=== PATIENT | male | born 1990 | race Caucasian/White ===

== ENCOUNTER 2021-07-05 17:59 | Emergency (ER) | payer OTHER, SELFPAY ==
[2021-07-05 18:10] VITALS: BP 129/77; PULSE 112; RESP 16; TEMP 37.4; O2SAT 99
--- NOTE | 2021-07-05 18:16 | ED.SKABFB ---
HPI - Skin/Abscess/Foreign Bdy General Chief complaint: Skin/Abscess/Foreign Body Stated complaint: rash Time Seen by Provider: 07/05/21 18:46 Source: patient and RN notes reviewed Mode of arrival: ambulatory Limitations: no limitations History of Present Illness HPI narrative: 31 male presents concern for painful rash on his hands and feet, reports rash on the palms of hands and feet. Reports general body aches, chills, malaise. He denies oral lesions. Reports he has kids, however they are not sick. He denies cough, shortness of breath, rhinorrhea, nasal congestion complaint: rash Related Data Allergies Allergy/AdvReac Type Severity Reaction Status Date / Time No Known Allergies Allergy Verified 07/05/21 18:27 Review of Systems Review of Systems: CONSTITUTIONAL: Reports malaise, chills. Denies sweats, or fever. EYES: Denies visual changes, redness, or discharge. ENT: Denies rhinorrhea, congestion, sinus pain, otalgia or sore throat. CARDIOVASCULAR: Denies chest pain, palpitations, or edema. RESPIRATORY: Denies cough or dyspnea. GASTROINTESTINAL: Denies abdominal pain, nausea, vomiting SKIN: Reports painful rash on the soles of the feet and the palms of MUSCULOSKELETAL: No reported myalgia. NEUROLOGIC: Denies headache. All systems reviewed & are unremarkable except as noted in HPI and below PMFSH Comments At time of signature, agree with nursing past medical, surgical, social and family history. There is no relevant family history pertinent to the presenting complaint Exam Narrative: GENERAL: Well-appearing, well-nourished, and in no acute distress. HEAD: Normocephalic, atraumatic. EYES: PERRLA, conjunctivae clear, and EOMI. ENT: Mucous membranes moist. Oropharynx without edema, erythema or lesions. NECK: Supple. No lymphadenopathy CHEST: Clear to auscultation. No respiratory distress. HEART: Regular rate and rhythm. SKIN: Warm, dry. Scattered skin colored papules noted to the palms of the hands and soles of feet. NEURO: Alert and oriented x3. PSYCH: Normal mood and affect Course Course Emergency Course: Patient is aware of diagnosis, understands and agrees to treatment plan. Anticipatory guidance given. Patient agrees to follow-up as directed and is aware of reasons to seek care at the emergency department. Portions of this record may have been created with voice recognition software Vital Signs Vital signs: Vital Signs Temperature 99.3 F 07/05/21 18:10 Pulse Rate 112 H 07/05/21 18:10 Respiratory Rate 16 07/05/21 18:10 Blood Pressure 129/77 07/05/21 18:10 Pulse Oximetry 99 07/05/21 18:10 Temperature 99.3 F 07/05/21 18:10 Pulse Rate 112 H 07/05/21 18:10 Respiratory Rate 16 07/05/21 18:10 Blood Pressure 129/77 07/05/21 18:10 Pulse Oximetry 99 07/05/21 18:10 Reviewed. MDM - Skin/Abscess/Foreign Bdy MDM Narrative Medical decision making narrative: Does not appear at this time to be erythema multiforme, bullous, SJS, TEN; no evidence at this time to suggest RMSF, endocarditis or Lyme disease; patient looks well, nontoxic and is tolerating oral intake; no neurologic signs or symptoms; no headache, photophobia or neck pain; afebrile; appropriate for initial outpatient treatment; discussed the importance of follow-up, patient agrees; question, viral exanthema, contact dermatitis, allergic dermatitis, eczema, urticaria. No soft palate or uvula edema, no tongue, lip edema or other mucosal involvement, no respiratory compromise, no stridor, no wheezing, no wheezing, no history of syncope, no hypotension, no nausea, vomiting, or diarrhea. Instructed patient to go to nearest ER immediately for any worsening symptoms including but not limited to: fever, spreading rash, pain, sore throat, headache, dizziness, chest pain, trouble breathing, or any symptoms concerning to the patient. Critical Care Time Critical Care Time Critical Care Time: No Discharge Plan Discharge Clinical Impress
== END 2021-07-05 19:00 | disposition home or self-care (01) ==
PROVIDERS: Emergency Provider Nurse Practitioner
DX: R21 Rash and other nonspecific skin eruption (principal); B97.11 Coxsackievirus as the cause of diseases classified elsewhere
CPT/HCPCS: 99213; G0463

== ENCOUNTER 2024-03-09 20:23 | Emergency (ER) | payer BC, SELFPAY ==
[2024-03-09 20:32] VITALS: BP 139/87; PULSE 64; RESP 15; TEMP 36.6; O2SAT 100
--- NOTE | 2024-03-09 22:26 | PC.NURSE ---
Pt refusing IV, blood work, and IV medications. Pt is only want a prescription refilled. COLIN Brizuela notified.
--- NOTE | 2024-03-09 22:30 | ED.ABDPAIN ---
HPI - Abdominal Pain General Chief Complaint: Abdominal Pain Stated Complaint: heartburn Time Seen by Provider: 03/09/24 22:17 Source: patient Mode of arrival: ambulatory Limitations: no limitations History of Present Illness HPI narrative: This is a 33-year-old male that presents to the emergency department for medication refill. Reports he has recently moved and does not have his prescription for his reflux medications. He has been experiencing heartburn in the last couple of days due to this. Denies fevers or vomiting. Related Data Allergies Allergy/AdvReac Type Severity Reaction Status Date / Time No Known Allergies Allergy Verified 03/09/24 20:24 Review of Systems Review of Systems: CONSTITUTIONAL: Denies fever GASTROINTESTINAL: Reports nausea. Denies abdominal pain, vomiting, or diarrhea. All systems reviewed & are unremarkable except as noted in HPI and below PMFSH Past Medical History Medical History (Updated 03/09/24 @ 22:35 by Sheryl Brizuela PA-C) History of gastroesophageal reflux (GERD) Social History Social History (Updated 03/09/24 @ 22:35 by Sheryl Brizuela PA-C) Substance use: never Exam Narrative: GENERAL: Well-appearing, well-nourished, and in no acute distress. HEAD: Normocephalic, atraumatic. EYES: EOMI. CHEST: Clear to auscultation. No respiratory distress. No wheezes rales or rhonchi HEART: Regular rate and rhythm. No murmur heard. Normal peripheral pulses. ABDOMEN: Soft, nontender, nondistended, normal active bowel sounds. EXTREMITIES: Normal range of motion. No edema. SKIN: Warm, dry, no rash. NEURO: No focal deficits. Alert and oriented x3. PSYCH: Normal mood and affect Course Vital Signs Vital signs: Vital Signs Temperature 98 F 03/09/24 20:32 Pulse Rate 64 03/09/24 20:32 Respiratory Rate 15 03/09/24 20:32 Blood Pressure 139/87 03/09/24 20:32 Pulse Oximetry 100 03/09/24 20:32 Oxygen Delivery Room Air 03/09/24 20:32 Temperature 98 F 03/09/24 20:32 Pulse Rate 64 03/09/24 20:32 Respiratory Rate 15 03/09/24 20:32 Blood Pressure 139/87 03/09/24 20:32 Pulse Oximetry 100 03/09/24 20:32 Oxygen Delivery Room Air 03/09/24 20:32 MDM - Abdominal Pain MDM Narrative Medical decision making narrative: Patient presents to the emergency department for medication refill. Reports he has recently moved. He needs prescriptions for his reflux medications. He does not have any other complaints currently. Will send prescriptions and he will have further follow-up with his GI doctor. He was given warnings to return to the ER Differential Diagnosis Differential diagnosis: Likely other (GERD, esophagitis, gastritis) Critical Care Time Critical Care Time Critical Care Time: No Discharge Plan Discharge Clinical Impression: Chronic GERD Patient Disposition: Home, Self-Care Condition: Stable Instructions: GERD (Gastroesophageal Reflux Disease) (ED), Abdominal Pain (ED) Additional Instructions: Return to the ER if you experience fever, abdominal pain with nausea and vomiting, you are unable to keep down liquids or solids, or any other symptoms that are concerning to you Take your medications as prescribed Follow up with your tip puncher Prescriptions: New famotidine 20 mg tablet 20 mg PO BID 30 Days Qty: 60 0RF omeprazole 40 mg capsule,delayed release(DR/EC) 40 mg PO DAILY 30 Days Qty: 30 0RF No Action prednisone 20 mg tablet 40 mg PO DAILY 5 Days Qty: 10 0RF triamcinolone acetonide 0.1 % cream 1 applic TOPICAL BID 7 Days Qty: 80 0RF Follow-up/Referrals: UNKNOWN,DOCTOR [Primary Care Provider] -
[2024-03-09 22:42] VITALS: BP 136/76; PULSE 68; RESP 16; O2SAT 98
== END 2024-03-09 22:44 | disposition home or self-care (01) ==
PROVIDERS: Emergency Provider Physician Assistant
DX: K21.9 Gastro-esophageal reflux disease without esophagitis (principal)
CPT/HCPCS: 99283

== ENCOUNTER 2024-07-19 20:18 | Emergency (ER) | payer BC, SELFPAY ==
--- NOTE | ~2024-07-19 | XR_ITS ---
Portable chest x-ray Comparison: None Clinical History: Pain Findings: Lungs are clear, without focal consolidation or pleural effusion. Cardiomediastinal silho uette is unremarkable. Bones and soft tissues are unremarkable. Impression: Normal chest. Reviewed, dictated and finalized at location [facility]. Impression: Normal chest.
--- NOTE | ~2024-07-19 | CT_ITS ---
CT of the Abdomen and Pelvis: Indication: Abdominal pain, status post prior cholecystectomy Technique: 2.5 mm axial scans were obtained through the abdomen and pelvis following intravenous adm inistration of 100 cc of Omnipaque 350. Dose reduction technique was used on this scan by utilizing a utomated exposure control and iterative reconstruction technique. The dose-length product (DLP) was 1 220.20 mGy-cm. Findings: Scans through the lung bases are unremarkable. The liver, spleen, pancreas, adrenals and kidneys are within normal limits. Status post cholecystecto my. No evidence of aortic aneurysm. There is minimal haziness in the central mesentery with small ramiro tty lymph nodes. No bowel obstruction or bowel wall thickening. There is no evidence to suggest acute appendicitis. Images through the pelvis were performed. Urinary bladder unremarkable. No pelvic mass seen. No ascit es. Chronic compression deformities of L2 and L3 are present. Impression: Mild mesenteric panniculitis. Chronic compression deformities of L2 and L3. Reviewed, dictated and finalized at [facility]. Impression: Mild mesenteric panniculitis. Chronic compression deformities of L2 and L3.
[2024-07-19 20:37] VITALS: BP 143/88; PULSE 85; RESP 16; TEMP 36.5; O2SAT 99
[2024-07-19 21:17] LABS: Basophils Percent Auto 0.7 % (0.2-1.2); Eosinophils Absolute Auto 0.3 K/mm3 (0-0.3); Eosinophils Percent Auto 4.9 % (0-4.4); Hematocrit 45.2 % (42.0-52.0); Hemoglobin 15.2 g/dL (14.0-18.0); Immature Granulocyte Absolute 0.01 K/mm3 (0.00-0.031); Immature Granulocyte Percent A 0.2 % (0-0.5); Lymphocytes Absolute Auto 1.93 K/mm3 (0.9-3.2); Lymphocytes Percent Auto 31.5 % (18.3-44.2); Mean Corpuscular HGB Conc 33.6 g/dl (32-36); Mean Corpuscular Hemoglobin 28.7 pg (26-34); Mean Corpuscular Volume 85.3 fl (80-100); Mean Platelet Volume 9.6 fl (7.4-10.4); Monocytes Absolute Auto 0.5 K/mm3 (0.1-0.6); Monocytes Percent Auto 7.8 % (2.6-8.5); Neutrophils Absolute Auto 3.4 K/mm3 (1.3-6.7); Neutrophils Percent Auto 54.9 % (45.5-73.1); Platelet Count Result 185 k/mm3 (150-375); Red Cell Distribution Width 13.2 % (11.5-14.5); White Blood Count 6.1 K/mm3 (4.5-10.0)
[2024-07-19 21:32] LABS: Alanine Aminotransferase 18 U/L (6-50); Albumin Level 4.3 g/dL (3.5-5.1); Alkaline Phosphatase 57 U/L (38-126); Anion Gap 7 mmol/L (4-12); Aspartate Amino Transferase 20 U/L (17-59); Bilirubin,Total 0.4 mg/dL (0.2-1.3); Blood Urea Nitrogen 14 mg/dL (9-20); Calcium 8.9 mg/dL (8.4-10.2); Carbon Dioxide 33 mmol/L (22-30); Chloride 103 mmol/L (98-107); Estimated CRCL calculation 102 ml/min; Estimated Glomerular Filt Rate > 60; Glucose 101 mg/dL (65-110); Lipase 81 U/L (23-300); Potassium 3.9 mmol/L (3.4-5.0); Sodium 143 mmol/L (137-145)
--- NOTE | 2024-07-19 21:48 | ED.ABDPAIN ---
HPI - Abdominal Pain General Chief Complaint: Abdominal Pain Stated Complaint: abd pain [id number] Time Seen by Provider: 07/19/24 21:23 Source: patient Mode of arrival: ambulatory Limitations: no limitations History of Present Illness HPI narrative: patient presents with Right upper quadrant abdominal pain of 10 days duration. he underwent cholecystectomy approximately 6 weeks ago. Patient has found no relation of eating to his symptoms, neither palliating or provoking. He was seen at the [place] emergency department 2 days ago told he might have an infection it was unclear. Nevertheless he prescribed antibiotics. His last bowel movement was 2 days ago and he does note that he has been constipated. Previously his stool has been soft after surgery but. he was prescribed opiates after his surgery and he took only a few. He did take 1 today because of pain otherwise has been using them regularly. No diarrhea or bloody stool. He states he continues to have an appetite but only occasionally eats, like a bird. denies any fever. He has been nauseated but denies any vomiting. at home he tried omeprazole Zofran ( which he is almost out), an anti-inflammatory medication, and he took 2 doses leftover amoxicillin. His multiple sick family members including a and a pneumonia. He denies any rhinorrhea or cough. He does have back pain but this is a injury the fractured his back rollerblading the past year. Related Data Allergies Allergy/AdvReac Type Severity Reaction Status Date / Time metoclopramide [From Reglan] AdvReac Jittery Verified 07/19/24 20:19 prochlorperazine AdvReac Jittery Verified 07/19/24 20:19 [From Compazine] FOR[facility] Past Medical History Medical History Back fracture History of gastroesophageal reflux (GERD) Surgical History Surgical History Hx of cholecystectomy May 2024 Social History Social History (Updated 07/19/24 @ 22:38 by Breann Newberry MD) Social History: Receives care at [employer] ([place]) Substance use: never Living arrangements: with family Additional living arrangements comments: and kids Occupation/Education: occupation Additional occupation/education comments: works at [employer] Exam Narrative: GENERAL: Well-appearing, well-nourished, and in no acute distress. HEAD: Normocephalic, atraumatic. EYES: Non injected, non icteric ENT: Nares clear, no rhinorrhea or epistaxis. NECK: Supple. CHEST: Speaking in full sentences. No respiratory distress. HEART: Regular rate and rhythm. . ABDOMEN: Soft, nondistended. mild tenderness to palpation in the right upper quadrant without rigidity or guarding. Not peritoneal. Ortega sign negative (though notably performed in the setting of absent gallbladder) EXTREMITIES: Normal range of motion. No lower extremity edema. SKIN: Warm, dry, no rash. well-healing laproscopic surgical scars across abdomen NEURO: No focal deficits. Alert and oriented x3. PSYCH: Normal mood and affect. Course Vital Signs Vital signs: Vital Signs Temperature 97.7 F 07/19/24 20:37 Pulse Rate 85 07/19/24 20:37 Respiratory Rate 16 07/19/24 20:37 Blood Pressure 143/88 H 07/19/24 20:37 Pulse Oximetry 99 07/19/24 20:37 Oxygen Delivery Room Air 07/19/24 20:37 Temperature 97.7 F 07/19/24 20:37 Pulse Rate 70 07/20/24 02:12 Respiratory Rate 17 07/20/24 02:12 Blood Pressure 121/80 07/20/24 02:12 Pulse Oximetry 99 07/20/24 02:12 Oxygen Delivery Room Air 07/19/24 20:37 MDM - Abdominal Pain MDM Narrative Medical decision making narrative: patient presents with right upper quadrant abdominal pain of 10 days duration. It is associated with nausea. Approximately 6 weeks ago he underwent a cholecystectomy. He was seen at the emergency department at the [facility] [address] ago and underwent CT imaging which was reportedly negative/ normal although he was told he might have an infection. He was not prescribed antibiotics. In the emergency department he is afebrile with vital signs notable for mild hypertension. Patient is given analgesic medication, antiemetics and antispasmodic medication. Upon re-evaluation he states his pain and nausea are resolved. CT imaging with possible mesenteric panniculitis. on my independent interpretation of CT scan, I do appreciate a reasonable of stool burden in the right hemipelvis. In sum, neither the clinical exam nor the CT has identified an emergent etiology for the abdominal pain. Specifically, given the benign exam, the laboratory studies, and unremarkable CT, I have a very low suspicion for appendicitis, ischemic bowel, bowel perforation, or any other life threatening disease. Patient is to follow-up as noted on the discharge instructions, or return to the Emergency Department immediately if the pain worsens, develops fever, persistent and uncontrolled vomiting, or for any new symptoms or concerns. patient is prescribed antinausea medications, antispasmodic medication, as well regimen including with stool softener and. We discussed constipation the differences between these types medication. Patient is encouraged to maintain hydration by drinking plenty of water also encouraged to increase fiber intake in diet. He verifies understanding. Stable for discharge. Differential Diagnosis Differential diagnosis: Likely abdominal pain, acute appendicitis, calculus of kidney, constipation, pancreatitis and other ( postsurgical complication including abscess) Lab Data Attestation: I reviewed the patient's lab results. Lab results narrative: labs generally unremarkable. Renal function within normal limits. No leukocytosis, anemia, thrombocytopenia. No marked electrolyte abnormalities. 07/19/24 21:11 07/19/24 21:11 Labs: Lab Results 07/19/24 07/19/24 Range/Units 21:11 23:42 WBC 6.1 (4.5-10.0) K/mm3 RBC 5.30 (4.6-6.20) M/mm3 Hgb 15.2 (14.0-18.0) g/dL Hct 45.2 (42.0-52.0) % MCV 85.3 (80-100) fl MCH 28.7 (26-34) pg MCHC 33.6 (32-36) g/dl RDW 13.2 (11.5-14.5) % Plt Count 185 (150-375) k/mm3 MPV 9.6 (7.4-10.4) fl Immature Gran % (Auto) 0.2 (0-0.5) % Neut % (Auto) 54.9 (45.5-73.1) % Lymph % (Auto) 31.5 (18.3-44.2) % Woodruff % (Auto) 7.8 (2.6-8.5) % Eos % (Auto) 4.9 H (0-4.4) % Baso % (Auto) 0.7 (0.2-1.2) % Lymph # (Auto) 1.93 (0.9-3.2) K/mm3 Woodruff # (Auto) 0.5 (0.1-0.6) K/mm3 Eos # (Auto) 0.3 (0-0.3) K/mm3 Baso # (Auto) 0.0 (0.0-0.1) K/mm3 Abs Immat Gran (auto) 0.01 (0.00-0.031) K/mm3 Absolute Neuts (auto) 3.4 (1.3-6.7) K/mm3 Absolute Nucleated RBC 0.000 (0.0-0.012) K/mm3 Nucleated RBC % 0.0 (0.0-0.2) % Sodium 143 (137-145) mmol/L Potassium 3.9 (3.4-5.0) mmol/L Chloride 103 (98-107) mmol/L Carbon Dioxide 33 H (22-30) mmol/L Anion Gap 7 (4-12) mmol/L BUN 14 (9-20) mg/dL Creatinine 1.20 (0.7-1.3) mg/dL Estim Creat Clear Calc 102 ml/min Estimated GFR > 60 (59 - ) Glucose 101 (65-110) mg/dL Calcium 8.9 (8.4-10.2) mg/dL Total Bilirubin 0.4 (0.2-1.3) mg/dL AST 20 (17-59) U/L ALT 18 (6-50) U/L Alkaline Phosphatase 57 (38-126) U/L Total Protein 7.0 (6.3-8.2) g/dL Albumin 4.3 (3.5-5.1) g/dL Lipase 81 (23-300) U/L Urine Color Yellow (Yellow) Urine Appearance Clear (Clear) Urine pH 5.5 (5.0-9.0) Ur Specific [place] 1.035 (1.001-1.035) Urine Protein Trace (Negative) mg/dL Urine Glucose (UA) Negative (Negative) mg/dL Urine Ketones Negative (Negative) mg/dL Ur Blood (Man) Negative (Negative) Urine Nitrate Negative (Negative) Urine Bilirubin Negative (Negative) Urine Urobilinogen 0.2 (<2.0) mg/dL Leukocyte Esterase Rfl Negative (Negative) PARAM/UL Urine RBC 3-5 H (0-2) /hpf Urine WBC 0-5 (0-3) /hpf Ur Squamous Epith Cells Few (Few) /hpf Urine Bacteria Rare /hpf Imaging Data Attestation: I personally reviewed and interpreted this imaging study as follows: My impression: Patient does have a fair amount of stool burden in the right hemipelvis on my independent interpretation of CT scan no evidence of lobar especially basilar consolidation on my independent interpretation of chest x-ray. No loss of costophrenic angle. Radiologist's impression: ITS Impressions Chest X-Ray 07/20/24 06:04 Impression: Normal chest. Abdomen/Pelvis CT 07/20/24 06:12 Impression: Mild mesenteric panniculitis. Chronic compression deformities of L2 and L3. Stat Rad: mild edema in the mid mesentery with increased number of mesenteric lymph nodes, which are not enlarged. Correlate for mild mesenteric panniculitis. Cholecystectomy. Diverticulosis. Discharge Plan Discharge Clinical Impression: Abdominal pain, RUQ, LAD (lymphadenopathy), mesenteric, Constipation, Microscopic hematuria, Diverticulosis Patient Disposition: Home, Self-Care Condition: Stable Instructions: Antibiotic Form, Constipation (ED), Diverticulosis (ED), High Fiber Diet (ED), Hematuria (ED), Abdominal Pain (ED) Additional Instructions: Your CT scan showed: mild edema in the mid mesentery with increased number of mesenteric lymph nodes, which are not enlarged. Correlate for mild mesenteric panniculitis. in addition to diverticulosis which is commonly seen with constipation. For the constipation, use the bowel regimen of fiber (psylium) which acts as a stool softener. Miralax can supplement this and, if needed, magnesium citrate is an effective laxative (increasing the motility of the gut). follow-up with your primary care provider. If you already have [facility], you can disregard but if you don't have one the name of a doctor is listed below. The Bentyl can help with abdominal cramping and the oral disintegrating tablets of Zofran / ondansetron can help with nausea or vomiting. Return to the emergency department if the pain worsens, develops fever, persistent and uncontrolled vomiting, or for any new symptoms or concerns. Prescriptions: New ondansetron 4 mg tablet,disintegrating 4 mg PO Q8H PRN (Reason: nausea and vomiting) Qty: 7 0RF dicyclomine 10 mg capsule 10 mg PO BID PRN (Reason: abdominal pain) Qty: 10 0RF polyethylene glycol 3350 [Miralax] 17 gram/dose powder 17 g PO DAILY Qty: 119 0RF psyllium husk [Metamucil] 0.4 gram capsule 0.4 g PO DAILY Qty: 30 0RF magnesium citrate [OneLAX Magnesium Citrate] Solution 150 ml PO DAILY PRN (Reason: constipation) Qty: 296 0RF No Action prednisone 20 mg tablet 40 mg PO DAILY 5 Days Qty: 10 0RF triamcinolone acetonide 0.1 % cream 1 applic TOPICAL BID 7 Days Qty: 80 0RF famotidine 20 mg tablet 20 mg PO BID 30 Days Qty: 60 0RF omeprazole 40 mg capsule,delayed release(DR/EC) 40 mg PO DAILY 30 Days Qty: 30 0RF Follow-up/Referrals: Nile Garza MD [Physician] - (family practice) UNKNOWN,DOCTOR [Primary Care Provider] - Stand Alone Forms: Work/School Release IP Time of Disposition: 01:54
[2024-07-19] MEDS: DICYCLOMINE HCL 10 MG CAPSULE PO (22:03)
[2024-07-19] MEDS: ONDANSETRON INJ 4 MG/2 ML VIAL IV PUSH (22:03)
[2024-07-19] MEDS: MORPHINE SULFATE (*CRX) 4 MG/ML INJ IV PUSH (22:03)
--- NOTE | 2024-07-19 22:11 | PC.NURSE ---
Patient taken to CT via stretcher at this time.
[2024-07-19 23:44] VITALS: BP 121/77; PULSE 64; RESP 14; O2SAT 93
[2024-07-20 01:11] LABS: Add Urine Microscopic? YES; Appearance Urine Clear (Clear); Bilirubin Urine Negative (Negative); Blood Urine Negative (Negative); Color Urine Yellow (Yellow); Glucose Urine UA Negative (Negative); Ketones Urine Negative (Negative); Leukocyte Esterase Ur Negative LEU/UL (Negative); Nitrate Urine Negative (Negative); Protein Urine Trace mg/dL (Negative); Urobilinogen Urine 0.2 mg/dL (<2.0); pH Urine 5.5 (5.0-9.0)
[2024-07-20 01:13] VITALS: BP 123/79; PULSE 57; RESP 17; O2SAT 93
[2024-07-20 01:16] LABS: Specific Grav Ur 1.035 (1.001-1.035); Squamous Epithelial Cell Urine Few /hpf (Few); WBC Urine 0-5 /hpf (0-3)
[2024-07-20 01:17] LABS: Bacteria Urine Rare /hpf
[2024-07-20] MEDS: PSYLLIUM POWDER PACKET 1 PACKET PO (01:51)
[2024-07-20 02:12] VITALS: BP 121/80; PULSE 70; RESP 17; O2SAT 99
== END 2024-07-20 02:13 | disposition home or self-care (01) ==
PROVIDERS: Emergency Provider Student in an Organized Health Care Education/Training Program
DX: R10.11 Right upper quadrant pain (principal); R59.0 Localized enlarged lymph nodes; K59.00 Constipation, unspecified; R31.29 Other microscopic hematuria; K57.90 Diverticulosis of intestine, part unspecified, without perforation or abscess without bleeding; K21.9 Gastro-esophageal reflux disease without esophagitis
CPT/HCPCS: 36415; 71045; 74177; 80053; 81001; 83690; 85025; 96374; 96375; 99284; A9270; J2270; J2405; Q9967

== ENCOUNTER 2024-07-22 04:55 | Emergency (ER) | payer BC, SELFPAY ==
--- NOTE | ~2024-07-22 | CT_ITS ---
Clinical Indication: Abdominal pain, chest pain CT Scan of the Chest, Abdomen, and Pelvis with Contrast: Technique: Contiguous sections were acquired throughout the chest, abdomen, and pelvis after intraven ous administration of 100 cc of Omnipaque 350. Dose reduction technique was used on this scan by edison villalobos automated exposure control and iterative reconstruction technique. The dose-length product (DL P) was 1860.23 mGy-cm. Comparison: 07/19/2024 Findings: There is no evidence of any significant mediastinal, hilar or axillary lymphadenopathy. The mediastin al soft tissues appear normal. No pulmonary embolus seen. No aortic aneurysm or dissection. There is no evidence of pleural or pericardial effusion. The lungs are clear. No pulmonary nodules or infiltrates are noted. The liver, spleen, pancreas, adrenals and kidneys are within normal limits. Status post cholecystecto my. No evidence of aortic aneurysm. No lymphadenopathy. No bowel obstruction or bowel wall thickening. There is no evidence to suggest acute appendicitis. Th ere is haziness in the central mesentery with small shotty lymph nodes present. Urinary bladder is unremarkable. No pelvic mass seen. No ascites. Chronic appearing compression defor mities of L2 and L3 noted. Impression: Mesenteric panniculitis. Chronic appearing compression deformities versus Schmorl's nodes of L2 and L3. No other significant findings. Reviewed, dictated and finalized at [facility]. Impression: Mesenteric panniculitis. Chronic appearing compression deformities versus Schmorl's nodes of L2 and L3. No other significant findings.
--- NOTE | ~2024-07-22 | XR_ITS ---
Portable chest x-ray Comparison: 07/19/2024 Clinical History: Chest pain Findings: Lungs are clear, without focal consolidation or pleural effusion. Cardiomediastinal silho uette is stable. Bones and soft tissues are unremarkable. Impression: Normal chest. Reviewed, dictated and finalized at [facility]. Impression: Normal chest.
[2024-07-22 04:58] VITALS: BP 130/102; PULSE 105; RESP 12; TEMP 36.3; O2SAT 100
--- NOTE | 2024-07-22 04:59 | ECG_ITS ---
Test Date: 2024-07-22 05:00:27 Measurements Intervals [place] Rate: 95 P: 41 WV: 141 QRS: 9 QRSD: 93 T: 63 QT: 332 QTc: 419 Interpretive Statements SINUS RHYTHM WITH MARKED SINUS ARRHYTHMIA INTERPRETATION BASED ON A DEFAULT AGE OF 40 YEARS No previous ECG available for comparison Electronically Signed On 07-22-2024 14:43:58 CDT by Radha David M.D.
[2024-07-22] MEDS: ASPIRIN 81 MG CHEWABLE TABLET 324 MG PO (05:05)
[2024-07-22 05:10] VITALS: PULSE 91
[2024-07-22 05:18] LABS: Basophils Absolute Auto 0.1 K/mm3 (0.0-0.1); Basophils Percent Auto 0.6 % (0.2-1.2); Eosinophils Absolute Auto 0.3 K/mm3 (0-0.3); Eosinophils Percent Auto 3.7 % (0-4.4); Hematocrit 51.5 % (42.0-52.0); Hemoglobin 17.2 g/dL (14.0-18.0); Immature Granulocyte Absolute 0.02 K/mm3 (0.00-0.031); Immature Granulocyte Percent A 0.3 % (0-0.5); Lymphocytes Absolute Auto 2.99 K/mm3 (0.9-3.2); Lymphocytes Percent Auto 38.2 % (18.3-44.2); Mean Corpuscular HGB Conc 33.4 g/dl (32-36); Mean Corpuscular Hemoglobin 28.7 pg (26-34); Mean Corpuscular Volume 85.8 fl (80-100); Mean Platelet Volume 9.3 fl (7.4-10.4); Monocytes Absolute Auto 0.6 K/mm3 (0.1-0.6); Monocytes Percent Auto 8.1 % (2.6-8.5); Neutrophils Absolute Auto 3.8 K/mm3 (1.3-6.7); Neutrophils Percent Auto 49.1 % (45.5-73.1); Platelet Count Result 191 k/mm3 (150-375); Red Cell Distribution Width 13.3 % (11.5-14.5); White Blood Count 7.8 K/mm3 (4.5-10.0)
[2024-07-22 05:24] VITALS: BP 144/107; PULSE 94; RESP 20; O2SAT 100
[2024-07-22] MEDS: ONDANSETRON INJ 4 MG/2 ML VIAL IV PUSH (05:33)
[2024-07-22] MEDS: SODIUM CHLORIDE 0.9% IV 1,000 ML 999 ML IV CONT (05:34)
[2024-07-22] MEDS: HYDROmorphone HCL INJ (*CRX) 1 MG/ML SYR IV PUSH (05:34)
[2024-07-22 05:37] LABS: Alanine Aminotransferase 28 U/L (6-50); Albumin Level 4.7 g/dL (3.5-5.1); Alkaline Phosphatase 77 U/L (38-126); Anion Gap 9 mmol/L (4-12); Aspartate Amino Transferase 44 U/L (17-59); Blood Urea Nitrogen 15 mg/dL (9-20); Calcium 9.8 mg/dL (8.4-10.2); Carbon Dioxide 32 mmol/L (22-30); Chloride 102 mmol/L (98-107); Estimated CRCL calculation 77 ml/min; Estimated Glomerular Filt Rate 49; Glucose 89 mg/dL (65-110); Lipase 95 U/L (23-300); Potassium 3.6 mmol/L (3.4-5.0); Sodium 143 mmol/L (137-145)
[2024-07-22 05:46] LABS: Troponin I < 0.012 ng/mL (0.000-0.034)
[2024-07-22 06:04] VITALS: BP 120/85; PULSE 85; O2SAT 98
[2024-07-22 06:21] LABS: Prothrombin Time 13.7 Seconds (11.1-14.7)
[2024-07-22 06:22] LABS: Partial Thromboplastin Time 22.8 Seconds (22.3-36.8)
--- NOTE | 2024-07-22 06:30 | ED_ITS ---
HPI - General Adult General Chief complaint: Chest Pain Stated complaint: severe amount of chest pain Time Seen by Provider: 07/22/24 05:19 History of Present Illness HPI narrative: Patient is a 34-year-old gentleman presents emergency department with chief complaint of abdominal pain and chest pain. Patient reports he was seen here 2 days ago diagnosed with constipation patient reports that he had a recent cholecystectomy and reports that also had some panniculitis at that time. The patient denies fever does report the pain radiates up into his chest patient reports symptoms are not improved by anything does report that he had some nausea and vomiting and reports the pain is a cramping like pain. Related Data Allergies Allergy/AdvReac Type Severity Reaction Status Date / Time metoclopramide [From Reglan] AdvReac Jittery Verified 07/22/24 05:04 prochlorperazine AdvReac Jittery Verified 07/22/24 05:04 [From Compazine] Review of Systems Review of Systems: A 10 system review of systems was completed on the patient and is negative except for what is stated in the HPI. Nursing and ancillary documentation was reviewed. [facility], [facility] Past Medical History Medical History Back fracture History of gastroesophageal reflux (GERD) Surgical History Surgical History Hx of cholecystectomy May 2024 Social History Social History Social History: Receives care at [employer] ([place]) Substance use: never Living arrangements: with family Additional living arrangements comments: and kids Occupation/Education: occupation Additional occupation/education comments: works at [employer] Exam Narrative: GENERAL: Well-appearing, well-nourished, and in no acute distress. HEAD: Normocephalic, atraumatic. EYES: PERRLA and EOMI. ENT: Nares clear, no rhinorrhea or epistaxis. Mucous membranes moist. NECK: Supple. CHEST: Clear to auscultation. No respiratory distress. HEART: Regular rate and rhythm. No murmur heard. Normal peripheral pulses. ABDOMEN: Soft, diffuse moderate tenderness, nondistended, normal active bowel sounds. EXTREMITIES: Normal range of motion. No edema. SKIN: Warm, dry, no rash. NEURO: No focal deficits. Alert and oriented x3. PSYCH: Normal mood and affect. Course Vital Signs Vital signs: Vital Signs Temperature 36.3 C L 07/22/24 04:58 Pulse Rate 105 H 07/22/24 04:58 Respiratory Rate 12 07/22/24 04:58 Blood Pressure 130/102 H 07/22/24 04:58 Pulse Oximetry 100 07/22/24 04:58 Oxygen Delivery Room Air 07/22/24 04:58 Temperature 36.3 C L 07/22/24 04:58 Pulse Rate 85 07/22/24 06:04 Respiratory Rate 20 07/22/24 05:24 Blood Pressure 120/85 07/22/24 06:04 Pulse Oximetry 98 07/22/24 06:04 Oxygen Delivery Room Air 07/22/24 05:24 Medical Decision Making MDM Narrative Medical decision making narrative: Differential diagnosis includes intra-abdominal infection, bowel obstruction, bile leak, PE, pancreatitis Laboratory studies were obtained on the patient showed normal CBC CMP showed a creatinine 1.6 lipase was normal at 95 The chest x-ray showed no focal infiltrate EKG showed no acute ischemic changes CTA chest with abdomen pelvis showed no acute abnormality Vital Signs Vital Signs: Vital Signs Temperature 36.3 C L 07/22/24 04:58 Pulse Rate 105 H 07/22/24 04:58 Respiratory Rate 12 07/22/24 04:58 Blood Pressure 130/102 H 07/22/24 04:58 Pulse Oximetry 100 07/22/24 04:58 Oxygen Delivery Room Air 07/22/24 04:58 Temperature 36.3 C L 07/22/24 04:58 Pulse Rate 85 07/22/24 06:04 Respiratory Rate 20 07/22/24 05:24 Blood Pressure 120/85 07/22/24 06:04 Pulse Oximetry 98 07/22/24 06:04 Oxygen Delivery Room Air 07/22/24 05:24 Lab Data 07/22/24 05:06 07/22/24 05:06 Labs: Lab Results 07/22/24 Range/Units 05:06 WBC 7.8 (4.5-10.0) K/mm3 RBC 6.00 (4.6-6.20) M/mm3 Hgb 17.2 (14.0-18.0) g/dL Hct 51.5 (42.0-52.0) % MCV 85.8 (80-100) fl MCH 28.7 (26-34) pg MCHC 33.4 (32-36) g/dl RDW 13.3 (11.5-14.5) % Plt Count 191 (150-375) k/mm3 MPV 9.3 (7.4-10.4) fl Immature Gran % (Auto) 0.3 (0-0.5) % Neut % (Auto) 49.1 (45.5-73.1) % Lymph % (Auto) 38.2 (18.3-44.2) % [place] % (Auto) 8.1 (2.6-8.5) % Eos % (Auto) 3.7 (0-4.4) % Baso % (Auto) 0.6 (0.2-1.2) % Lymph # (Auto) 2.99 (0.9-3.2) K/mm3 [place] # (Auto) 0.6 (0.1-0.6) K/mm3 Eos # (Auto) 0.3 (0-0.3) K/mm3 Baso # (Auto) 0.1 (0.0-0.1) K/mm3 Abs Immat Gran (auto) 0.02 (0.00-0.031) K/mm3 Absolute Neuts (auto) 3.8 (1.3-6.7) K/mm3 Absolute Nucleated RBC 0.000 (0.0-0.012) K/mm3 Nucleated RBC % 0.0 (0.0-0.2) % PT 13.7 (11.1-14.7) Seconds INR 1.0 APTT 22.8 (22.3-36.8) Seconds Sodium 143 (137-145) mmol/L Potassium 3.6 (3.4-5.0) mmol/L Chloride 102 (98-107) mmol/L Carbon Dioxide 32 H (22-30) mmol/L Anion Gap 9 (4-12) mmol/L BUN 15 (9-20) mg/dL Creatinine 1.60 H (0.7-1.3) mg/dL Estim Creat Clear Calc 77 ml/min Estimated GFR 49 L (59 - ) Glucose 89 (65-110) mg/dL Calcium 9.8 (8.4-10.2) mg/dL Total Bilirubin 1.0 (0.2-1.3) mg/dL AST 44 (17-59) U/L ALT 28 (6-50) U/L Alkaline Phosphatase 77 (38-126) U/L Troponin I < 0.012 (0.000-0.034) ng/mL Total Protein 8.0 (6.3-8.2) g/dL Albumin 4.7 (3.5-5.1) g/dL Lipase 95 (23-300) U/L Discharge Plan Discharge Clinical Impression: Abdominal pain, Atypical chest pain Patient Disposition: Home, Self-Care Condition: Stable Instructions: Antibiotic Form, Chest Pain (ED), Abdominal Pain (ED) Additional Instructions: Is recommended that you start a clear liquid diet for the next 24-48 hours please follow-up with your primary care provider Prescriptions: No Action prednisone 20 mg tablet 40 mg PO DAILY 5 Days Qty: 10 0RF triamcinolone acetonide 0.1 % cream 1 applic TOPICAL BID 7 Days Qty: 80 0RF famotidine 20 mg tablet 20 mg PO BID 30 Days Qty: 60 0RF omeprazole 40 mg capsule,delayed release(DR/EC) 40 mg PO DAILY 30 Days Qty: 30 0RF ondansetron 4 mg tablet,disintegrating 4 mg PO Q8H PRN (Reason: nausea and vomiting) Qty: 7 0RF dicyclomine 10 mg capsule 10 mg PO BID PRN (Reason: abdominal pain) Qty: 10 0RF polyethylene glycol 3350 [Miralax] 17 gram/dose powder 17 g PO DAILY Qty: 119 0RF psyllium husk [Metamucil] 0.4 gram capsule 0.4 g PO DAILY Qty: 30 0RF magnesium citrate [OneLAX Magnesium Citrate] Solution 150 ml PO DAILY PRN (Reason: constipation) Qty: 296 0RF Follow-up/Referrals: UNKNOWN,DOCTOR [Primary Care Provider] - Time of Disposition: 06:32
== END 2024-07-22 06:40 | disposition home or self-care (01) ==
PROVIDERS: Emergency Provider Emergency Medicine
DX: R07.89 Other chest pain (principal); R10.9 Unspecified abdominal pain; K21.9 Gastro-esophageal reflux disease without esophagitis; Z90.49 Acquired absence of other specified parts of digestive tract
CPT/HCPCS: 36415; 71045; 71275; 74177; 80053; 83690; 84484; 85025; 85610; 85730; 93005; 96361; 96374; 96375; 99284; A9270; J1171; J2405; J7030; Q9967

== ENCOUNTER 2025-01-15 07:36 | Emergency (ER) | payer OTHER, SELFPAY ==
--- OUTSIDE RECORDS SUMMARY | 2025-01-15 07:38 | XMS_ITS | Referral Summary ---
Author Organization [facility] [place] [facility] Address [address] [place] [address] Care Team Providers Care Back Hoe Operator Name Role Phone Unknown, Notinfile Primary Care Provider Unavail able Allergies No known active allergies Medications pantoprazole DR (PROTONIX) 40 mg EC tablet Take 1 tablet (40 mg total) by mouth daily Active ondansetron ODT (ZOFRAN-ODT) 4 mg disintegrating tablet Take 1 tablet (4 mg total) by mouth every 8 (eight) hours as needed for nausea or vomiting 20 tablet 3 Active Active Problems Problem Noted Date Diagnosed Date Gastroesophageal reflux disease 03/17/2019 Social History Tobacco Use Types Packs/Day Years Used Date Smoking Tobacco: Never Assessed Personal Safety Answer Date Recorded Getting School Help Needed Not on file 03/23 Sex and Gender Information Value Date Recorded Sex Assigned at Not on file Legal Sex Male 6:40 PM CDT Gender Identity Not on file Sexual Orientation Not on file Last Filed Vital Signs Vital Sign Reading Time Taken Comments Blood Pressure 113/69 03/11/2023 1:00 PM CDT Pulse 66 03/11/2023 1:00 PM CDT Temperature 36.3 C (97.4 F) 03/11/2023 1:00 PM CDT Respiratory Rate 17 03/11/2023 1:00 PM CDT Oxygen Saturation 96% 03/11/2023 1:00 PM CDT Inhaled Oxygen Concentration - - Weight 108.9 kg (240 lb) 03/11/2023 4:56 AM CDT Height 188 cm (6' 2 ) 03/11/2023 4:56 AM CDT Body Mass Index 30.81 03/11/2023 4:56 AM CDT Plan of Treatment Not on file Insurance [facility]S [facility] Care Teams Back Hoe Operator Relationship Specialty Start Date End Date Unknown, Notinfile PCP - General 03/11/23
--- OUTSIDE RECORDS SUMMARY | 2025-01-15 07:38 | XMS_ITS | Encounter Summary ---
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 This section includes the names of all active insurance providers for the patient. Insurance Provider Type of Coverage Plan Name Start of Policy Coverage End of Policy Coverage Group Number Member ID Insurance Provider's Telephone Number Policy Mehta's Name Patient's Relationship to Policy Mehta [place] PREFERRED PROVIDER ORGANIZAT ION (PPO) FEP FOCUS FAMIL Y Oct 08, 2021 [id number] [phone] REISING,T YLER PATIENT CAREMARK ([id number])RX PRESCRIPT ION GEHA Oct 04, 2024 [id number] REISING,T YLER PATIENT CAREMARK FEP [id number] PRESCRIPT ION FEPRX Aug 16, 2019 [id number] [phone] REISING,T YLER PATIENT GEHA PREFERRED PROVIDER ORGANIZAT ION (PPO) GEHA STAND EVELYN Oct 04, 2024 [id number] REISING,T YLER PATIENT Selected Encounter This section includes the information on record at [place] for the Encounter. 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 RONALDO PIMENTEL [facility] Apr 02, 2024 03:59 PM SECONDARY Low back pain, unspecified RONALDO PIMENTEL [facility] Apr 02, 2024 03:59 PM SECONDARY Major depressive disorder, recurrent, moderate RONALDO PIMENTEL [facility] Apr 02, 2024 03:59 PM SECONDARY Pain in left knee RONALDO PIMENTEL [facility] Plan of Treatment: Future Appointments (+ 6 months) and Future Tests (+/- 45 days) The Plan of Treatment section includes future care activities for the patient [facility] This section includes future appointments and future orders which are active, pending or scheduled. Future Appointments This section includes appointments that were scheduled to occur 6 months from the date of the Encounter, up to a maximum of 20 appointments. The data comes from all [place] treatment facilities. Appointment Date/Time Appointment Type Appointme nt Facility Name Apr 08, 2024 02:00 PM AMBULATORY - PSYCHIATRY [facility] Apr 16, 2024 03:06 AM AMBULATORY - MEDICINE [facility] Apr 16, 2024 08:30 AM AMBULATORY - SURGERY [facility] Apr 22, 2024 02:00 PM AMBULATORY - PSYCHIATRY [facility] Apr 22, 2024 03:30 PM AMBULATORY - MEDICINE [facility] Apr 27, 2024 02:45 PM AMBULATORY - SURGERY [facility] May 01, 2024 11:00 AM AMBULATORY - NONE [facility] May 15, 2024 09:30 AM AMBULATORY - SURGERY [facility] May 20, 2024 03:30 PM AM[facility]ULATORY - NONE [facility] May 28, 2024 02:00 PM AMBULATORY - PSYCHIATRY [facility] Jun 03, 2024 11:30 AM AMBULATORY - SURGERY . Doug [facility] Jun 11, 2024 01:00 PM AMBULATORY - PSYCHIATRY [facility] Jun 29, 2024 03:00 PM AMBULATORY - NONE [facility] Jul 17, 2024 01:24 PM AMBULATORY - MEDICINE [facility] Jul 22, 2024 10:30 AM AMBULATORY - MEDICINE [facility] Jul 24, 2024 04:14 AM AMBULATORY - MEDICINE [facility] Aug 07, 2024 03:00 PM AMBULATORY - MEDICINE [facility] Active, Pending, and Scheduled Orders This section includes a listing of several types of active, pending, and scheduled orders, including clinic medications orders, diagnostic test orders, procedure orders and consult orders; where the start date of the order is 45 days before the date of the Encounter or 45 days after the date of theEncounter. The data comes from all [facility] facilities. Test Date/Time Test Type Test Details Facility Name Mar 06, 2024 12:00 AM Laboratory - Chemistry Order CBC (DIFF&PLT) BLOOD SP [facility] [place] Mar 06, 2024 12:00 AM Laboratory - Chemistry Order COMPREHENSIVE METABOLIC PANEL BLOOD PLASMA SP [facility] [place] Mar 06, 2024 12:00 AM Laboratory - Chemistry Order URINALYSIS URINE SP [facility] [place] Mar 06, 2024 12:00 AM Laboratory - Chemistry Order LIPID PANEL BLOOD PLASMA SP [facility] [place] Mar 06, 2024 12:00 AM Laboratory - Chemistry Order TSH-G,LC,J,T BLOOD PLASMA SP [facility] [place] Mar 06, 2024 12:00 AM Laboratory - Chemistry Order HEMOGLOBIN %A1C PROFILE BLOOD SP [facility] [place] Mar 06, 2024 12:00 AM Laboratory - Chemistry Order MICROALBUMINURIA(IVONNE) URINE [facility] Apr 16, 2024 11:39 AM Laboratory - Chemistry Order MRSA SURVL NARES DNA NARES [facility] Apr 18, 2024 09:38 AM Laboratory - Chemistry Order MRSA SURVL NARES DNA NARES WC [facility] Lab Results: +/- 30 days of the encounter This section includes the Chemistry and Hematology Lab Results on record with [place] for the patient. Radiology Reports and Pathology Reports are provided separately, in subsequent sections. Lab Results This section contains the Chemistry/Hematology Results that were resulted 30 days before or 30 daysafter the date of the Encounter. Date/Time Source Result Type Result - Unit Interpretation Reference Range Specimen Type Comment Apr 17, 2024 08:49 PM [facility] BASIC METABOLIC PANEL PLASMA Specimen Type: PLASMA Comment: No hemolysis noted. Ordering Provider: JAKUB DOAN V Report Released Date/Time: Apr 16, 2024 04:01 PM Reporting Lab: [address] [address] Performing Lab: [address] [address] CREATININE 1.22 mg/dL 0.7-1.3 UREA NITROGEN 12.4 mg/dL 9.0-25.0 GLUCOSE 131 mg/dL H 72-99 SODIUM 139 meq/L 136-145 POTASSIUM 4.6 meq/L 3.5-5 CHLORIDE 105 meq/L 98-107 CARBON DIOXIDE 23 meq/L 22-31 CALCIUM 9.2 mg/dL 8.4-10.4 EGFR (CKD-EPI 2020) 79.3 >60 Apr 17, 2024 08:49 PM [facility] CBC BLOOD Specimen Type: BLOOD No comment entered. Ordering Provider: JAKUB DOAN V Report Released Date/Time: Apr 16, 2024 04:01 PM Reporting Lab: [address] [address] Performing Lab: [address] [address] WBC 11.4 10*3/uL H 3.6-11.2 RBC 5.43 10*6/uL 4.10-5.70 HGB 15.1 g/dL 13.1-16.8 HCT 46.0 38.2-48.4 MCV 84.7 fL 80.0-100.0 MCH 27.8 pg 27.0-34.0 MCHC 32.8 g/dL L 33.0-36.0 PLT 182 10*3/uL 150-400 MPV 9.5 fL 7.5-11.2 RDW 12.7 11.8-15.1 LYMPHOCYTES, AUTO % 5 MONOCYTES, AUTO % 2 NEUTROPHILS, AUTO % 93 EOSINOPHILS, AUTO % 0 BASOPHILS, AUTO % 0 LYMPHOCYTES, ABSOLUTE 0.57 10*3/uL L 0.77- 4.50 MONOCYTES, ABSOLUTE 0.19 10*3/uL 0.19-0. 80 NEUTROPHILS, ABSOLUTE 10.58 10*3/uL H 2.10 -8.00 EOSINOPHILS, ABSOLUTE 0.01 10*3/uL 0.00- 0.60 BASOPHILS, ABSOLUTE 0.02 10*3/uL 0.00-0. 20 Apr 16, 2024 08:18 PM [facility] BASIC METABOLIC PANEL PLASMA Specimen Type: PL ASMA Comment: No hemolysis noted. Ordering Provider: JAKUB DOAN V Report Released Date/Time: Apr 16, 2024 04:01 PM Reporting Lab: [address] [address] Performing Lab: [address] [address] CREATININE 1.21 mg/dL 0.7-1.3 UREA NITROGEN 11.5 mg/dL 9.0-25.0 GLUCOSE 99 mg/dL 72-99 SODIUM 141 meq/L 136-145 POTASSIUM 3.8 meq/L 3.5-5 CHLORIDE 105 meq/L 98-107 CARBON DIOXIDE 25 meq/L 22-31 CALCIUM 9.2 mg/dL 8.4-10.4 EGFR (CKD-EPI 2020) 80.1 >60 Apr 16, 2024 08:18 PM [facility] APTT PLASMA Specimen Type: PLASM A No comment entered. Ordering Provider: JAKUB DOAN V Report Released Date/Time: Apr 16, 2024 04:02 PM Reporting Lab: [address] [address] Performing Lab: [address] [address] APTT 28.9 s 26.7-39.9 Apr 16, 2024 08:18 PM [facility] PT/INR NEW (STL-MA) PLASMA Specimen Type: PLAS MA No comment entered. Ordering Provider: JAKUB DOAN V Report Released Date/Time: Apr 16, 2024 04:02 PM Reporting Lab: [facility] [address] [facility] [address] Performing Lab: [facility] [address] [facility] [address] PROTIME 12.3 s 9.4-12.5 INR VALUE 1.1 {INR} Apr 16, 2024 08:18 PM [facility] CBC BLOOD Specimen Type: BLOOD No comment entered. Ordering Provider: JAKUB DOAN V Report Released Date/Time: Apr 16, 2024 04:01 PM Reporting Lab: [facility] [address] [facility] [address] Performing Lab: [facility] [address] [facility] [address] WBC 6.8 10*3/uL 3.6-11.2 RBC 5.13 10*6/uL 4.10-5.70 HGB 14.6 g/dL 13.1-16.8 HCT 43.6 38.2-48.4 MCV 85.0 fL 80.0-100.0 MCH 28.5 pg 27.0-34.0 MCHC 33.5 g/dL 33.0-36.0 PLT 192 10*3/uL 150-400 MPV 9.4 fL 7.5-11.2 RDW 13.1 11.8-15.1 LYMPHOCYTES, AUTO % 26 MONOCYTES, AUTO % 9 NEUTROPHILS, AUTO % 61 EOSINOPHILS, AUTO % 4 BASOPHILS, AUTO % 1 LYMPHOCYTES, ABSOLUTE 1.75 10*3/uL 0.77- 4.50 MONOCYTES, ABSOLUTE 0.59 10*3/uL 0.19-0. 80 NEUTROPHILS, ABSOLUTE 4.18 10*3/uL 2.10- 8.00 EOSINOPHILS, ABSOLUTE 0.25 10*3/uL 0.00- 0.60 BASOPHILS, ABSOLUTE 0.04 10*3/uL 0.00-0. 20 Apr 16, 2024 03:25 AM [facility] LIPASE PLASMA Specimen Type: PLASM A Comment: No hemolysis noted. Ordering Provider: ADINA WALTON Report Released Date/Time: Apr 16, 2024 03:23 AM Reporting Lab: [facility] [address] [facility] [address] Performing Lab: [facility] [address] [place] [address] LIPASE 36 U/L 8-78 Apr 16, 2024 03:25 AM [facility] COMPREHENSIVE METABOLIC PANEL PLASMA Specimen Type: PLASMA Comment: No hemolysis noted. Ordering Provider: ADINA WALTON Report Released Date/Time: Apr 16, 2024 03:23 AM Reporting Lab: [facility] [address] [facility] [address] Performing Lab: [address] [address] CREATININE 1.42 mg/dL H 0.7-1.3 UREA NITROGEN 16.1 mg/dL 9.0-25.0 GLUCOSE 108 mg/dL H 72-99 SODIUM 143 meq/L 136-145 POTASSIUM 4.0 meq/L 3.5-5 CHLORIDE 107 meq/L 98-107 CARBON DIOXIDE 30 meq/L 22-31 CALCIUM 9.9 mg/dL 8.4-10.4 PROTEIN 6.9 g/dL 6-8.6 ALBUMIN 4.4 g/dL 3.4-5 TOTAL BILIRUBIN 0.5 mg/dL 0.2-1.2 ALKALINE PHOSPHATASE 97 U/L 40-150 AST/SGOT 13 U/L 5-34 ALT/SGPT 14 U/L 8-40 EGFR (CKD-EPI 2020) 66.1 >60 Apr 16, 2024 03:25 AM [facility] GGT GAMMA-GT PLASMA Specimen Type: PLASM A Comment: No hemolysis noted. Ordering Provider: ADINA WALTON Report Released Date/Time: Apr 16, 2024 03:23 AM Reporting Lab: [facility] [address] [facility] [address] Performing Lab: [address] [address] GGT GAMMA-GT 25 [IU]/L 12-64 Apr 16, 2024 03:[address] [facility] CBC BLOOD Specimen Type: BLOOD No comment entered. Ordering Provider: ADINA WALTON Report Released Date/Time: Apr 16, 2024 03:23 AM Reporting Lab: [facility] [address] [facility] [address] Performing Lab: [facility] [address] [facility] [address] WBC 8.8 10*3/uL 3.6-11.2 RBC 5.41 10*6/uL 4.10-5.70 HGB 15.5 g/dL 13.1-16.8 HCT 46.6 38.2-48.4 MCV 86.1 fL 80.0-100.0 MCH 28.7 pg 27.0-34.0 MCHC 33.3 g/dL 33.0-36.0 PLT 215 10*3/uL 150-400 MPV 9.6 fL 7.5-11.2 RDW 13.0 11.8-15.1 LYMPHOCYTES, AUTO % 26 MONOCYTES, AUTO % 7 NEUTROPHILS, AUTO % 62 EOSINOPHILS, AUTO % 3 BASOPHILS, AUTO % 1 LYMPHOCYTES, ABSOLUTE 2.30 10*3/uL 0.77- 4.50 MONOCYTES, ABSOLUTE 0.62 10*3/uL 0.19-0. 80 NEUTROPHILS, ABSOLUTE 5.47 10*3/uL 2.10- 8.00 EOSINOPHILS, ABSOLUTE 0.30 10*3/uL 0.00- 0.60 BASOPHILS, ABSOLUTE 0.06 10*3/uL 0.00-0. 20 Social History: Smoking Status (Most current) and Tobacco Use (All prior to encounter date) This section includes the most current, and the historical, smoking and tobacco- related health factors from the AL facility where the Encounter took place. Current Smoking Status This section includes the most current smoking, or tobacco-related health factor, from the AL facility where the Encounter took place. Date/Time Current Smoking Status Comment Shameka martínez Apr 18, 2022 11:00 AM VA-TOBACCO FORMER USER [facility] Tobacco Use History This section includes a history of the smoking, or tobacco-related health factors, that were collected on or before the date of the Encounter. The data comes from the AL facility where the Encounter took place. Date/Time Smoking Status/Tobacco Use Comment F acility Apr 18, 2022 11:00 AM AL-TOBACCO QUIT 1 TO < 5 YRS [facility] Advance Directives: All historical and current Section Date Range: From patient's date of to the date document was created. This section includes ALL of a patient's completed or amended [place] Advance and Rescinded Directives. The entries below indicate that a directive exists for the patient, but an actual copy is not included with this document. The data comes from all AL facilities. Date Advance Directives Provider Source Aug 28, 2023 ADVANCE DIRECTIVE NO TIFICATION AND SCREENING SYLWIA SANTIAGO [facility] [place] May 14, 2023 ADVANCE DIRECTIVE NO TIFICATION AND SCREENING SYLWIA SANTIAGO [facility] [place] Radiology Reports: +/- 30 days of the encounter Radiology Reports For cases when an order for radiology services may have been completed prior to the date of the Encounter, the report list includes the Radiology Reports that were completed up to 30 days before dateof the Encounter. For cases when an order for radiology services may have been completed after the date of the Encounter, the report list also includes the Radiology Reports that were completed up to30 days after date of the Encounter. The data comes from all [place] treatment facilities. Date/Time Radiology Report Provider Source May 01, 2024 09:48 AM MRI SPINE LUMBAR W /O CONT: MERLE LAFLEUR [id number] -[id number] M Exm Date: MAY 01, 2024@09:48 Req Phys: SOBIA SORENSEN Loc: [facility] 1 (Req'g Lo Img Loc: [facility] Service: Unknown [facility] [address] [place] [address] (Case [id number] COMPLETE) MRI SPINE LUMBAR W/O CONT (MRI Detailed) CPT:27817 Reason for Study: Low back pain. L2, L3 compression Clinical History: Has this patient had a plain film x-ray of this associated spine within the past 6 months? No If the above answer is no, please order an x-ray of the associated spine along with the MRI. These studies will be performed during the same patient encounter. Date of plain film x-ray performed? Apr Responsible Attending: Valarie Attending Contact Number: [phone] Resident Contact Number: Does your patient have an implanted device or hardware? (Any prosthesis, implant, shrapnel or bullet fragments) No Does your patient have any of the following (Please check all that apply) [ ] Pacemaker [ ] AICD [ ] Neuro-stimulator [ ] Bone Growth Stimulator [ ] Pain Pump [ ] Insulin Pump [ ] Cochlear Implant [ ] Ocular Implant [ ] Aneurysm Clip [ ] Vascular Clip Any other type of implant, please explain Does your patient have a Coronary Stent: No Does your patient have a an artificial Heart Valve: No Were any of the following intravascular implanted devices inserted less than 6 weeks ago: Stent No IVC Filter No Embolization Coils No Is your patient's weight >350lbs or abdominal and shoulder width >60cm? No Does your patient have Renal Failure, Chronic or Acute Renal Disease? No If ordering a contrasted enhanced MRI, you will be required to complete the order for creatine eGFR which is located at the bottom of the MRI ordering screen. If your patient is 60 years or older, the patient will need a recent eGFR within 30 days prior to the exam. NOTE: Incorrectly answering these questions may result in a delay in the procedure. A patient with a device or implant does not automatically mean the patient cannot receive an MRI. If your patient will have difficulty with a confined space, the provider will be responsible for ordering a sedation prior to the procedure, or to order an alternative procedure. Report Status: Verified Date Reported: MAY 01, 2024 Date Verified: MAY 01, 2024 Logging Equipment Mechanic E-Sig:/ES/MONICA DUARTE Report: INDICATION: Low back pain. L2, L3 compression COMPARISON: CT 03/25/2024. TECHNIQUE: MRI lumbar spine without intravenous contrast FINDINGS: Mild retrolisthesis at L5-S1 is redemonstrated. Small Schmorl's nodes are redemonstrated. This can be seen in the setting of Scheuermann's disease. The superior compression fracture of the L3 vertebral body has not significantly progressed. There is residual edema. The superior compression fracture of the L2 vertebral body has not significantly progressed. There is residual edema. The remaining vertebral body heights are grossly unchanged. The lowest fully formed intervertebral disc space is designated as L5-S1. No suspicious marrow replacing lesion. Normal distal spinal cord signal. The conus is at L1-L2. T11-T12: Schmorl's node formation along the inferior endplate of T11. Disc bulge asymmetric on the left. Left-sided neuroforaminal stenosis. No significant central canal stenosis. T12-L1: No significant neuroforaminal stenosis. No significant central canal stenosis. L1-L2: No significant neuroforaminal stenosis. Facet arthropathy asymmetric on the right. Ligamentum flavum hypertrophy. Mild central canal stenosis. L2: No significant retropulsion. L2-L3: No significant neuroforaminal stenosis. Disc bulge. Mild right subarticular stenosis. Facet arthropathy asymmetric on the right. Ligamentum flavum hypertrophy. Mild central canal stenosis. Radiographs L3: No significant retropulsion. L3-L4: Moderate right neuroforaminal stenosis. Disc bulge with annular fissure formation. Mild left subarticular stenosis. Facet arthropathy and ligamentum flavum hypertrophy. Mild central canal stenosis. L4-L5: Moderate bilateral neuroforaminal stenosis. Disc bulge. Left subarticular stenosis. Facet arthropathy. Mild central canal stenosis. L5-S1: Mild bilateral neuroforaminal stenosis. Disc bulge with shallow central disc protrusion. Left greater than right subarticular stenosis. Facet arthropathy and ligamentum flavum hypertrophy. Mild central canal stenosis. Impression: 1. Insufficiency type recent superior compression fractures of the L2 and L3 vertebral bodies have not significantly progressed. 2. Multiple Schmorl's nodes are redemonstrated and can be seen with Scheuermann's disease. Multilevel degenerative disc disease as discussed above. Primary Interpreting Staff: MONICA DUARTE, RADIOLOGIST (Logging Equipment Mechanic) /MONICA ROJAS [facility] Apr 16, 2024 07:12 AM US ABDOMEN LIMITED W/BLOOD FLOW DOPPLER: MERLE LAFLEUR [id number] -1990 M Ex Date: APR 16, 2024@07:12 Req Phys: ADINA WALTON Loc: [facility]Y [facility]PT 1ST SHIFT (R Img Loc: [facility]UL[facility] Service: Unknown [facility] [address] [place] [address] (Case [id number] COMPLETE) US ABDOMEN LTD, SINGLE ORG OR MORTEZA(US Detailed) CPT:71019 Reason for Study: eval acute cholecystitis (Case 2914 COMPLETE) US BLOOD FLOW ABD/RENAL (LTD) (US Detailed) CPT:15558 Clinical History: Organ to Image: Gallbladder Reason for exam: ho cholelithiasis. here with RUQ abdominal pain and nausea/emesis. Evaluate for acute cholecystitis Report Status: Verified Date Reported: APR 16, 2024 Date Verified: APR 16, 2024 Logging Equipment Mechanic E-Sig:/ES/JAIRO MCCOY Report: Case [id number], [id number]. US ABDOMEN LTD, SINGLE ORG OR QUADRANT, US BLOOD FLOW ABD/RENAL (LTD). Technique: Real-time ultrasound examination of the abdomen was obtained in multiple projections using grayscale and Doppler ultrasound Comparison: CT abdomen and pelvis 04/16/2024 Indication: Evaluate for acute cholecystitis, history of gallstones. Today here with right upper quadrant pain with nausea and emesis. Findings: Exam is limited by overlying bowel gas. Pancreas: Inadequately visualized. The visible portions of the pancreas appear normal. Liver: Very limited evaluation of the left hepatic lobe due to overlying stomach gas. The hepatic echotexture and echogenicity are normal. No focal liver masses are identified. Liver measures 17.3 cm AP dimension. Gallbladder: No gallbladder calculi are present. Sludge visualized in dependent portions of the gallbladder. No pericholecystic fluid is present. The sonographic Ortega's sign is negative. Gallbladder mild wall thickness increased at 4.2 mm. Biliary system: No dilatation of the intrahepatic biliary tree is seen. The common duct is within normal limits measuring 5.6 mm. Partially visualized right kidney is unremarkable, no evidence of hydronephrosis. Doppler evaluation: Hepatic veins are visualized and patent. Portal vein demonstrates expected hepatopetal flow. Portal vein diameter 1.4 cm. Impression: No cholelithiasis. Mild thickening of the gallbladder wall measures up to 4.2 m (normal up to 3 mm). No pericholecystic fluid. Negative Ortega's sign. Findings are equivocal for acute cholecystitis. Clinical correlation is recommended. Nuclear medicine HIDA scan may be of help for confirmation. IJairo, have reviewed the images and report and concur with these findings. Primary Interpreting Staff: JAIRO MCCOY, RADIOLOGIST (Logging Equipment Mechanic) Primary Interpreting Resident: JOSE ROBERTO RAMSAY, Resident Physician /JAIRO NGUYEN [facility] Apr 16, 2024 04:[address] ABD PEL W/O & W CONT & 3D: MERLE LAFLEUR [id number] -1990 M Exm Date: APR 16, 2024@04:46 Req Phys: ADINA WALTON Kathy Loc: [facility] 1ST SHIFT (R Img Loc: [facility]CT IMAGING [facility] Service: Unknown [facility] [address] [place] [address] (Case [id number] COMPLETE) CT ABDOMEN AND PELVIS W/CONTRAST (CT Detailed) CPT:84460 Contrast Media : Non-ionic Iodinated Reason for Study: evaluate for acute cholecystitis (Case 2889 COMPLETE) CT 3D RENDERING W INDEPENDENT WOR(CT Detailed) CPT:82094 Clinical History: Responsible Attending: jordon Attending Contact Number: nd Resident Contact Number: ho cholelithiasis, now wiht RUQ abd pain, n/v. evaluate for acute cholecystitis Allergies listed in CPRS chart: Patient has answered NKA Creatinine:CREATININE 1.42 H mg/dL 04/16/2024 03:25 /eGFR: STL EGFR (within one year). CREATININE 1.42 mg/dL H (04/16/24 03:25) Wt: 245 lb [111.13 kg] (03/04/2024 07:22) History of: Renal failure, chronic or acute renal disease: NO Report Status: Verified Date Reported: APR 16, 2024 Date Verified: APR 16, 2024 Logging Equipment Mechanic E-Sig:/ES/RANDALL JULES MD Report: Spiral axial imaging through the abdomen and pelvis was performed with IV contrast History provided does not specifically explain the clinical reason and/or location of symptoms for the requested examination. Comparison: 02/04/2023 Minor atelectasis in both lower lobes Low density gallstones are faintly visualized in the gallbladder, otherwise the gallbladder appears identical to the prior examination except for some very subtle fat stranding Liver: normal The spleen: normal Pancreas: normal Adrenal glands: No significant abnormality Kidneys: normal Aorta and retroperitoneum: Calcified plaque, caliber does not exceed 3 cm. No retroperitoneal adenopathy. Peritoneal cavity: No ascites. 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 Normal appendix Skeleton: Unremarkable. The term unremarkable may include mild to moderate arthritic changes that would not be considered unusual for the patient's age Pelvis: The pelvic organs are unremarkable. Impression: Findings on this examination do not reliably confirm or exclude acute cholecystitis. The imaging exam of choice with the greatest accuracy for acute cholecystitis is a nuclear HIDA scan Primary Interpreting Staff: RANDALL JULES MD, Radiologist (Logging Equipment Mechanic) /RANDALL BLANK [facility] Mar 25, 2024 07:[address] THORACIC SPINE W/O CONT: MERLE LAFLEUR [id number] -1990 M Exm Date: MAR 25, 2024@19:39 Req Phys: JESSICA PATTEN Loc: [facility]-EMERGENCY DEPT 3RD SHIFT (R Img Loc: [facility]CT IMAGING [facility] Service: Unknown [facility], [facility] [address] [place] [address] (Case [id number] COMPLETE) CT THORACIC SPINE W/O CONT (CT Detailed) CPT:96110 Reason for Study: eval for fx/dislcoation Clinical History: Responsible Attending: dr jessica patten Attending Contact Number: [id number] Resident Contact Number: FELL while roller blading. landed on tailbone then flexed forward at lumber spine and felt/heard crunching. Pain in lower thoracic (approx T6-12)and entire lumbar spine with right sided radiculopathy Allergies listed in CPRS chart: Patient has answered NKA Creatinine: CREATININE 1.33 H mg/dL 03/01/2024 21:06 /eGFR: STL EGFR (within one year). 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
--- OUTSIDE RECORDS SUMMARY | 2025-01-15 07:38 | XMS_ITS | Encounter Summary ---
Author Name [facility] Address [address] [place] [address] Care Team Providers Care Arcade Technician Name Role Phone BROOKLYN ARAGON Primary Care [...] FOCUS FAMIL Y Oct 08, [phone] [id number] [phone] REISING,T YLER PATIENT CAREMARK ([id number])RX PRESCRIPT ION GEHA Oct 04, 2024 [id number] [phone] REISING,T YLER PATIENT CAREMARK FEP [id number] PRESCRIPT ION FEPRX Aug 16, 2019 [id number] [phone] REISING,T YLER PATIENT GEHA PREFERRED PROVIDER ORGANIZAT ION (PPO) GEHA STAND EVELYN Oct 04, 2024 [id number] REISING,T YLER PATIENT Selected Encounter This section includes the information on record at [place] for the Encounter. Date/Time Encounter Type Encounter Description Reason Pro vider Source Jan 08, 2025 03:00 PM Outpatient Encounter PRIMARY CARE/MEDICINE [facility] Encounter Template Text not used by [place] Plan of Treatment: Future Appointments (+ 6 months) and Future Tests (+/- 45 days) The Plan of Treatment section includes future care activities for the patient [facility] This section includes future appointments and future orders which are active, pending or scheduled. Future Appointments This section includes appointments that were scheduled to occur 6 months from the date of the Encounter, up to a maximum of 20 appointments. The data comes from all [facility]. Appointment Date/Time Appointment Type Appointme nt Facility Name Jan 19, 2025 08:30 AM [facility] Apr 01, 2025 08:30 [facility] Active, Pending, and Scheduled Orders This section includes a listing of several types of active, pending, and scheduled orders, including clinic medications orders, diagnostic test orders, procedure orders and consult orders; where the start date of the order is 45 days before the date of the Encounter or 45 days after the date of theEncounter. The data comes from all [facility]. Test Date/Time Test Type Test Details Facility Name Dec 24, 2024 12:00 AM Laboratory - Chemi stry Order VITAMIN D, 25-HYDROXY GOLD/RED SST SERUM SP [facility] Dec 24, 2024 12:00 AM Laboratory - Chemi stry Order B12 GOLD/RED SST [facility] Dec 24, 2024 08:58 AM Consult Order PT OUTPT S TL [facility] Jan 08, 2025 09:52 AM Consult Order COMM[facility]ITY [facility]-STL DENTAL GEN [facility] Social History: Smoking Status (Most current) and Tobacco Use (All prior to encounter date) This section includes the most current, and the historical, smoking and tobacco- related health factors from the [place] facility where the Encounter took place. Current Smoking Status This section includes the most current smoking, or tobacco-related health factor, from the [place] facility where the Encounter took place. Date/Time Current Smoking Status Comment Facil ity Apr 18, 2022 11:00 AM VA-TOBACCO FORMER USER [facility] Tobacco Use History This section includes a history of the smoking, or tobacco-related health factors, that were collected on or before the date of the Encounter. The data comes from the [place] facility where the Encounter took place. Date/Time Smoking Status/Tobacco Use Comment F acility Apr 18, 2022 11:00 AM [place]-TOBACCO QUIT 1 TO < 5 YRS [facility] Advance Directives: All historical and current Section Date Range: From patient's date of to the date document was created. This section includes ALL of a patient's completed or amended [place] Advance and Rescinded Directives. The entries below indicate that a directive exists for the patient, but an actual copy is not included with this document. The data comes from all [place] facilities. Date Advance Directives Provider Source Aug 28, 2023 ADVANCE DIRECTIVE NO TIFICATION AND SCREENING SYLWIA SANTIAGO [facility] May 14, 2023 ADVANCE DIRECTIVE NO TIFICATION AND SCREENING SYLWIA SANTIAGO [facility]
--- OUTSIDE RECORDS SUMMARY | 2025-01-15 07:38 | XMS_ITS | Encounter Summary ---
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 Date/Time Encounter Type Encounter Description Reason Provider Source Mar 25, 2024 06:00 PM EMERGENCY DEPT VISIT [facility] EMERGENCY DEPT ICD-10-CM S32.000A Wedge compression fracture of unsp lumbar vertebra, fabriziomarilyn JESSICA PATTEN IHE Encounter Template Text not used by OR Assessments - Encounter Diagnoses This section includes the primary and secondary diagnoses documented for the Encounter. Date/Time Primary/Secondary Diagnosis Diagnosis Name Provider Source Mar 25, 2024 10:42 PM PRIMARY Wedge compression fracture of unsp lumbar vertebra, JESSICA Chisholm [facility] Mar 25, 2024 10:42 PM SECONDARY Fall from in-line roller-skates, initial encounter JESSICA PATTEN [facility] Mar 25, 2024 10:42 PM SECONDARY Other low back pain JESSICA PATTEN [facility] Plan of Treatment: Future Appointments (+ 6 months) and Future Tests (+/- 45 days) The Plan of Treatment section includes future care activities for the [facility] This section includes future appointments and future orders which are active, pending or scheduled. Future Appointments This section includes appointments that were scheduled to occur 6 months from the date of the Encounter, up to a maximum of 20 appointments. The data comes from all OR treatment facilities. Appointment Date/Time Appointment Type Appointme nt Facility Name Apr 08, 2024 02:00 PM AMBULATORY - PSYCHIATRY [facility] Apr 16, 2024 03:06 AM AMBULATORY - MEDICINE [facility] Apr 16, 2024 08:30 AM AMBULATORY - SURGERY [facility] Apr 22, 2024 02:00 PM AMBULATORY - PSYCHIATRY [facility] Apr 22, 2024 03:30 PM AMBULATORY - MEDICINE [facility] Apr 27, 2024 02:45 PM AMBULATORY - SURGERY [facility] May 01, 2024 11:00 AM AMBULATORY - NONE [facility] May 15, 2024 09:30 AM AMBULATORY - SURGERY [facility] May 20, 2024 03:30 PM AMBULATORY - NONE [facility] May 28, 2024 02:00 PM AMBULATORY - PSYCHIATRY [facility] Jun 03, 2024 11:30 AM AMBULATORY - SURGERY [facility] Jun 11, 2024 01:00 PM AMBULATORY - PSYCHIATRY [facility] Jun 29, 2024 03:00 PM AMBULATORY - NONE . [facility] Jul 17, 2024 01:24 PM AMBULATORY - MEDICINE [facility] Jul 22, 2024 10:30 AM AMBULATORY - MEDICINE [facility] Jul 24, 2024 04:14 AM AMBULATORY - MEDICINE [facility] Aug 07, 2024 03:00 PM AMBULATORY - MEDICINE [facility] Active, Pending, and Scheduled Orders This section includes a listing of several types of active, pending, and scheduled orders, including clinic medications orders, diagnostic test orders, procedure orders and consult orders; where the start date of the order is 45 days before the date of the Encounter or 45 days after the date of theEncounter. The data comes from all [facility]. Test Date/Time Test Type Test Details Facility Name Mar 06, 2024 12:00 AM Laboratory - Chemistry Order CBC (DIFF&PLT) BLOOD [facility] Mar 06, 2024 12:00 AM Laboratory - Chemistry Order COMPREHENSIVE METABOLIC PANEL BLOOD PLASMA SP [facility] Mar 06, 2024 12:00 AM Laboratory - Chemistry Order URINALYSIS URINE SP [facility] Mar 06, 2024 12:00 AM Laboratory - Chemistry Order LIPID PANEL BLOOD PLASMA SP [facility] Mar 06, 2024 12:00 AM Laboratory - Chemistry Order TSH-G,LC,J,T BLOOD PLASMA SP [facility] Mar 06, 2024 12:00 AM Laboratory - Chemistry Order HEMOGLOBIN %A1C PROFILE BLOOD SP [facility] Mar 06, 2024 12:00 AM Laboratory - Chemistry Order MICROALBUMINURIA(IVONNE) URINE SP [facility] Apr 16, 2024 11:39 AM Laboratory - Chemistry Order MRSA SURVL NARES DNA [facility] Apr 18, 2024 09:38 AM Laboratory - Chemistry Order MRSA SURVL NARES DNA NARES [facility] Lab Results: +/- 30 days of the encounter This section includes the Chemistry and Hematology Lab Results on record with OR for the patient. Radiology Reports and Pathology Reports are provided separately, in subsequent sections. Lab Results This section contains the Chemistry/Hematology Results that were resulted 30 days before or 30 daysafter the date of the Encounter. Date/Time Source Result Type Result - Unit Interpretation Reference Range Specimen Type Comment Apr 17, 2024 08:49 PM [facility] BASIC METABOLIC PANEL PLASMA Specimen Type: PLASMA Comment: No hemolysis noted. Ordering Provider: JAKUB DOAN V Report Released Date/Time: Apr 16, 2024 04:01 PM Reporting Lab: [address] [address] Performing Lab: [address] [address] CREATININE 1.22 mg/dL 0.7-1.3 UREA NITROGEN 12.4 mg/dL 9.0-25.0 GLUCOSE 131 mg/dL H 72-99 SODIUM 139 meq/L 136-145 POTASSIUM 4.6 meq/L 3.5-5 CHLORIDE 105 meq/L 98-107 CARBON DIOXIDE 23 meq/L 22-31 CALCIUM 9.2 mg/dL 8.4-10.4 EGFR (CKD-EPI 2020) 79.3 >60 Apr 17, 2024 08:49 PM [facility] CBC BLOOD Specimen Type: BLOOD No comment entered. Ordering Provider: JAKUB DOAN V Report Released Date/Time: Apr 16, 2024 04:01 PM Reporting Lab: [facility] [address] [place] [phone] Performing Lab: [address] [address] WBC 11.4 10*3/uL H 3.6-11.2 RBC 5.43 [...] 0.00-0. 20 Apr 16, 2024 08:18 PM [facility] BASIC METABOLIC PANEL PLASMA Specimen Type: PL ASMA Comment: No hemolysis noted. Ordering Provider: JAKUB DOAN V Report Released Date/Time: Apr 16, 2024 04:01 PM Reporting Lab: [address] [address] Performing Lab: [address] [address] CREATININE 1.21 mg/dL 0.7-1.3 UREA NITROGEN 11.5 mg/dL 9.0-25.0 GLUCOSE 99 mg/dL 72-99 SODIUM 141 meq/L 136-145 POTASSIUM 3.8 meq/L 3.5-5 CHLORIDE 105 meq/L 98-107 CARBON DIOXIDE 25 meq/L 22-31 CALCIUM 9.2 mg/dL 8.4-10.4 EGFR (CKD-EPI 2020) 80.1 >60 Apr 16, 2024 08:18 PM [facility] APTT PLASMA Specimen Type: PLASM A No comment entered. Ordering Provider: JAKUB DOAN V Report Released Date/Time: Apr 16, 2024 04:02 PM Reporting Lab: [address] [address] Performing Lab: [address] [address] APTT 28.9 s 26.7-39.9 Apr 16, 2024 08:18 PM [facility] PT/INR NEW (STL-MA) PLASMA Specimen Type: PLAS MA No comment entered. Ordering Provider: JAKUB DOAN V Report Released Date/Time: Apr 16, 2024 04:02 PM Reporting Lab: [facility] [address] [facility] [address] Performing Lab: [facility] [address] [facility] [address] PROTIME 12.3 s 9.4-12.5 INR VALUE 1.1 {INR} Apr 16, 2024 08:18 PM [facility] CBC BLOOD Specimen Type: BLOOD No comment entered. Ordering Provider: JAKUB DOAN V Report Released Date/Time: Apr 16, 2024 04:01 PM Reporting Lab: [facility] [address] [facility] [address] Performing Lab: [address] [address] WBC 6.8 10*3/uL 3.6-11.2 RBC 5.13 10*6/uL [...] 0.00-0. 20 Apr 16, 2024 03:25 AM [facility] LIPASE PLASMA Specimen Type: PLASM A Comment: No hemolysis noted. Ordering Provider: ADINA WALTON Report Released Date/Time: Apr 16, 2024 03:23 AM Reporting Lab: [facility] [address] [facility] [address] Performing Lab: [facility] [address] [place] [phone] LIPASE 36 U/L 8-78 Apr 16, 2024 03:25 AM [facility] COMPREHENSIVE METABOLIC PANEL PLASMA Specimen Type: PLASMA Comment: No hemolysis noted. Ordering Provider: ADINA WALTON Report Released Date/Time: Apr 16, 2024 03:23 AM Reporting Lab: [facility] [address] [place] [phone] Performing Lab: [address] [address] CREATININE 1.42 mg/dL H 0.7-1.3 UREA NITROGEN [...] 66.1 >60 Apr 16, 2024 03:25 AM [facility] GGT GAMMA-GT PLASMA Specimen Type: PLASM A Comment: No hemolysis noted. Ordering Provider: ADINA WALTON Report Released Date/Time: Apr 16, 2024 03:23 AM Reporting Lab: [facility] [address] [facility] [address] Performing Lab: [address] [address] GGT GAMMA-GT 25 [IU]/L 12-64 Apr 16, 2024 03:25 AM [facility] CBC BLOOD Specimen Type: BLOOD No comment entered. Ordering Provider: ADINA WALTON Report Released Date/Time: Apr 16, 2024 03:23 AM Reporting Lab: [facility] [address] [facility] [address] Performing Lab: [facility] [address] [facility] [address] WBC 8.8 10*3/uL 3.6-11.2 RBC 5.41 10*6/uL [...] 0.60 BASOPHILS, ABSOLUTE 0.06 10*3/uL 0.00-0. 20 Mar 01, 2024 09:06 PM [facility] HGA1C BLOOD Specimen Type: BLOOD No comment entered. Ordering Provider: ROYA CARTAGENA Report Released Date/Time: Feb 24, 2024 04:42 PM Reporting Lab: [facility] [address] [facility] [address] Performing Lab: [facility] [address] [place] [address] HGA1C 5.3 4.0-6.0 Mar 01, 2024 09:06 PM [facility] LIPID PANEL (STL) PLASMA Specimen Type: PLASM A Comment: No hemolysis noted. Ordering Provider: ROYA CARTAGENA Report Released Date/Time: Feb 24, 2024 04:42 PM Reporting Lab: [facility] [address] [facility] [address] Performing Lab: [address] [address] CHOLESTEROL 174 mg/dL 0-200 TRIGLYCERIDE 220 mg/dL H 0-150 CALCULATED LDL 98 mg/dL HDL(New) 32 mg/dL L >40 Mar 01, 2024 09:06 PM [facility] COMPREHENSIVE METABOLIC PANEL PLASMA Specimen Type: PLASMA Comment: No hemolysis noted. Ordering Provider: ROYA CARTAGENA Report Released Date/Time: Feb 24, 2024 04:42 PM Reporting Lab: [address] [address] Performing Lab: [address] [address] CREATININE 1.33 mg/dL H 0.7-1.3 UREA NITROGEN 14.5 mg/dL 9.0-25.0 GLUCOSE 99 mg/dL 72-99 SODIUM 142 meq/L 136-145 POTASSIUM 3.6 meq/L 3.5-5 CHLORIDE 106 meq/L 98-107 CARBON DIOXIDE 27 meq/L 22-31 CALCIUM 9.4 mg/dL 8.4-10.4 PROTEIN 6.7 g/dL 6-8.6 ALBUMIN 4.3 g/dL 3.4-5 TOTAL BILIRUBIN 0.9 mg/dL 0.2-1.2 ALKALINE PHOSPHATASE 61 U/L 40-150 AST/SGOT 16 U/L 5-34 ALT/SGPT 16 U/L 8-40 EGFR (CKD-EPI 2020) 71.9 >60 Mar 01, 2024 09:06 PM [facility] URINALYSIS (STL-PB) URINE Specimen Type: URIN E No comment entered. Ordering Provider: ROYA CARTAGENA Report Released Date/Time: Feb 24, 2024 04:42 PM Reporting Lab: [address] [address] Performing Lab: [address] [address] URINE COLOR Light-Yellow Yellow U.BILIRUBIN Negative mg/dL Negative U.PH 7.0 5.0-8.0 URINE WBC/HPF <1 /[HPF] 0-5 APPEARANCE Turbid Clear U.NITRITE Negative mg/dL Negative MUCUS RARE /[LPF] Negative-Rare AMORPHOUS CRYSTALS RARE /[HPF] Negative - Rare URN.GLUCOSE Normal mg/dL Negative URN.PROTEIN 20 mg/dL H Negative-20 URN.UROBILINOGEN 3 mg/dL H Normal URN.BLOOD Negative mg/dL Negative-Trace URN.KETONES Negative mg/dL Negative-Trac e URN.LEUK.EST. Negative mg/dL Negative-Tr alexander URN.SPECIFIC GRAVITY 1.025 1.005-1.029 Mar 01, 2024 09:06 PM [facility] CBC BLOOD Specimen Type: BLOOD No comment entered. Ordering Provider: ROYA CARTAGENA Report Released Date/Time: Feb 24, 2024 04:42 PM Reporting Lab: [facility] [address] [facility] [address] Performing Lab: [facility] [address] [facility] [address] WBC 7.7 10*3/uL 3.6-11.2 RBC 5.34 10*6/uL 4.10-5.70 HGB 14.9 g/dL 13.1-16.8 HCT 45.3 38.2-48.4 MCV 84.8 fL 80.0-100.0 MCH 27.9 pg 27.0-34.0 MCHC 32.9 g/dL L 33.0-36.0 PLT 200 10*3/uL 150-400 MPV 9.4 fL 7.5-11.2 RDW 13.2 11.8-15.1 LYMPHOCYTES, AUTO % 28 MONOCYTES, AUTO % 7 NEUTROPHILS, AUTO % 60 EOSINOPHILS, AUTO % 4 BASOPHILS, AUTO % 1 LYMPHOCYTES, ABSOLUTE 2.16 10*3/uL 0.77- 4.50 MONOCYTES, ABSOLUTE 0.54 10*3/uL 0.19-0. 80 NEUTROPHILS, ABSOLUTE 4.57 10*3/uL 2.10- 8.00 EOSINOPHILS, ABSOLUTE 0.29 10*3/uL 0.00- 0.60 BASOPHILS, ABSOLUTE 0.07 10*3/uL 0.00-0. 20 Vital Signs: All taken on the encounter date This section contains inpatient and outpatient Vital Signs collected on the date of the Encounter. Date/Time Temperature Pulse Blood Pressure Respiratory Rate SP02 Pain Height Weight Body Mass Index Source Mar 25, 2024 10:25 PM 88 133/99 16 [facility] Mar 25, 2024 07:40 PM 94 103/93 17 [facility] Mar 25, 2024 07:31 PM 100 103/93 12 6 [facility] Mar 25, 2024 06:33 PM 97.9 88 114/74 16 98 4 [facility] Social History: Smoking Status (Most current) and Tobacco Use (All prior to encounter date) This section includes the most current, and the historical, smoking and tobacco- related health factors from the OR facility where the Encounter took place. Current Smoking Status This section includes the most current smoking, or tobacco-related health factor, from the OR facility where the Encounter took place. Date/Time Current Smoking Status Comment Facil ity Jan 08, 2024 04:16 PM VA-TOBACCO FORMER USER [facility] Tobacco Use History This section includes a history of the smoking, or tobacco-related health factors, that were collected on or before the date of the Encounter. The data comes from the OR facility where the Encounter took place. Date/Time Smoking Status/Tobacco Use Comment F acility Jan 08, 2024 04:16 PM VA-TOBACCO QUIT 15 YRS OR MORE [facility] Dec 18, 2023 09:41 AM VA-TOBACCO FORMER USER [facility] Dec 18, 2023 09:41 AM VA-TOBACCO QUIT 1 TO < 5 YRS [facility] Advance Directives: All historical and current Section Date Range: From patient's date of to the date document was created. This section includes ALL of a patient's completed or amended OR Advance and Rescinded Directives. The entries below indicate that a directive exists for the patient, but an actual copy is not included with this document. The data comes from all OR facilities. Date Advance Directives Provider Source Aug 28, 2023 ADVANCE DIRECTIVE NO TIFICATION AND SCREENING JACKSYLWIA Arturo [facility] May 14, 2023 ADVANCE DIRECTIVE NO TIFICATION AND SCREENING SYLWIA SANTIAGO [facility] Radiology Reports: +/- 30 days of the [...] the Encounter. The data comes from all OR treatment facilities. Date/Time Radiology Report Provider Source Apr 16, 2024 07:12 AM US ABDOMEN LIMITED W/BLOOD FLOW DOPPLER: MERLE LAFLEUR [id number] -1990 M Exm Date: APR 16, 2024@07:12 Req Phys: ADINA WALTON Loc: [facility]EMERGENCY DEPT 1ST SHIFT (R Img Loc: [facility]ULTRASOUND [facility] Service: [facility] [address] [place] [address] (Case [id number] COMPLETE) US ABDOMEN LTD, SINGLE ORG OR MORTEZA(US Detailed) CPT:06723 Reason for Study: eval acute cholecystitis (Case [id number] COMPLETE) US BLOOD FLOW ABD/RENAL (LTD) (US Detailed) CPT:05923 Clinical History: Organ to Image: Gallbladder Reason for exam: ho cholelithiasis. here with RUQ abdominal pain and nausea/emesis. Evaluate for acute cholecystitis Report Status: Verified Date Reported: APR 16, 2024 Date Verified: APR 16, 2024 Instrument Calibrator E-Sig:/ES/JAIRO MCCOY Report: Case [id number], [id number]. US ABDOMEN LTD, SINGLE ORG OR QUADRANT, [...] findings. Primary Interpreting Staff: JAIRO MCCOY, RADIOLOGIST (Instrument Calibrator) Primary Interpreting Resident: JOSE ROBERTO RAMSAY, Resident Physician /JAIRO NGUYEN [facility] Apr 16, 2024 04:[address] ABD PEL W/O & W CONT & 3D: MERLE LAFLEUR [id number] -1990 M Ex Date: APR 16, 2024@04:46 Req Phys: ADINA WALTON Pat Loc: [facility]Y [facility]PT 1ST SHIFT (R Img Loc: [facility]-CT IMAGING [facility] Service: Unknown [facility] [address] [place] [address] (Case [id number] COMPLETE) CT ABDOMEN AND PELVIS W/CONTRAST (CT Detailed) CPT:20666 Contrast Media : Non-ionic Iodinated Reason for Study: evaluate for acute cholecystitis (Case [id number] COMPLETE) CT 3D RENDERING W INDEPENDENT WOR(CT Detailed) CPT:82505 Clinical History: Responsible Attending: jordon Attending Contact Number: la Resident Contact Number: ho cholelithiasis, now wiht [...] 16, 2024 Date Verified: APR 16, 2024 Instrument Calibrator E-Sig:/ES/RANDALL JULES MD Report: Spiral axial imaging [...] Primary Interpreting Staff: RANDALL JULES MD, Radiologist (Instrument Calibrator) /[facility] RANDALL JULES [facility] Mar 25, 2024 07:[address] THORACIC SPINE W/O CONT: MERLE LAFLEUR [id number] -1990 M Exm Date: MAR 25, 2024@19:39 Req Phys: JESSICA PATTEN Loc: [facility]PT 3RD SHIFT (R Img Loc: [facility]CT IMAGING [facility] Service: Unknown [facility] [address] [place] [address] (Case [id number] COMPLETE) CT THORACIC SPINE W/O CONT (CT Detailed) CPT:42288 Reason for Study: eval for fx/dislcoation Clinical History: Responsible Attending: dr jessica patten Attending Contact Number: [phone] Resident Contact Number: FELL while roller blading. [...] 25, 2024 Date Verified: MAR 25, 2024 Instrument Calibrator E-Sig: Report: CT THORACIC SPINE W/O CONT, CT LUMBAR SPINE W/O CONT HISTORY: eval for fx/dislcoation COMPARISON: No priors available. TECHNIQUE: The study was protocoled and supervised at the local OR facility. 2807 images were subsequently received by the OR National Teleradiology Program (NTP) for interpretation. Volumetric [...] fracture fragments. READING PHYSICIAN: Caio Rollins MD -[phone] 03/25/2024 18:30 PDT [facility] National Teleradiology Program [phone] (For Medical Practitioner Use Only) Attention Patients / Veterans: If you have questions or concerns about these test results, please contact your ordering provider or primary care team. Primary Interpreting Staff: RADIOLOGY,OUTSIDE SERVICE, Staff Physician / RADIOLOGY,OUTSIDE SERVICE [facility] Mar 25, 2024 07:[address] LUMBAR SPINE W/ O CONT: MERLE LAFLEUR [id number] -1990 M Exm Date: MAR 25, 2024@19:39 Req Phys: JESSICA PATTEN Loc: [facility]ERG[facility]Y DEPT 3RD SHIFT (R Img Loc: [facility]-CT IMAGING [facility] Service: Unknown [facility] [address] [place] [address] (Case [id number] COMPLETE) CT LUMBAR SPINE W/O CONT (CT Detailed) CPT:64813 Reason for Study: eval for fx/dislocation Clinical History: Responsible Attending: DR JESSICA PATTEN Attending Contact Number: [phone] Resident Contact Number: FELL while roller blading. [...] 25, 2024 Date Verified: MAR 25, 2024 Instrument Calibrator E-Sig: Report: CT THORACIC SPINE W/O CONT, CT LUMBAR SPINE W/O CONT HISTORY: eval for fx/dislcoation COMPARISON: No priors available. TECHNIQUE: The study was protocoled and supervised at the local OR facility. 2807 images were subsequently received by the OR National Teleradiology Program (NTP) for interpretation. Volumetric [...] fracture fragments. READING PHYSICIAN: Caio Rollins MD -[id number] 03/25/2024 18:30 PDT [facility] National Teleradiology Program [phone] (For Medical Practitioner Use Only) Attention Patients / Veterans: If you have questions or concerns about these test results, please contact your ordering provider or primary care team. Primary Interpreting Staff: RADIOLOGY,OUTSIDE SERVICE, Staff Physician / RADIOLOGY,OUTSIDE SERVICE [facility] Pathology Reports: +/- 30 days of [...] the Encounter. The data comes from all OR treatment facilities. Date/Time Pathology Report Provider Source Apr 21, 2024 11:44 AM LR SURGICAL PATHOL RABIA REPORT: LOCAL TITLE: LR SURGICAL PATHOLOGY REPORT STANDARD TITLE: PATHOLOGY PROCEDURE NOTE DATE OF NOTE: APR 21, 2024@11:44:09 ENTRY DATE: APR 21, 2024@11:44:09 AUTHOR: CHELI MORALES EXP COSIGNER: URGENCY: STATUS: COMPLETED $APHDR - - [...] seen, and no masses are grossly identified. Preschool Teacher'S Assistant sections of the wall from the body and fundus are submitted in A1, and the shaved cystic duct margin is submitted in A2. MICROSCOPIC EXAM: Cheli Morales MD 04/21/2024 Microscopic description substantiates final diagnosis. DIAGNOSIS: GALLBLADDER, LAPAROSCOPIC CHOLECYSTECTOMY: - SEVERE ACUTE AND CHRONIC CHOLECYSTITIS - CHOLELITHIASIS - NEGATIVE FOR MALIGNANCY /cydney/ CHELI MORALES Pathologist Signed Apr 21, 2024@11:44 Performing Laboratory: Surgical Pathology Report Performed By: [address] [id number] [address] [place] [phone] $FTR - - - - - - [...] - - - - - - - MERLE LAFLEUR STANDARD FORM 515 ID:[id number] SEX:M :1990 AGE: 34 LOC:APFEE PCP: Jaswinder Villafuerte MD /cydney/ CHELI MORALES Pathologist Signed: 04/21/2024 11:44 CHELI MORALES [facility] Encounter Notes: All associated encounter notes This section contains the clinical notes associated to the Encounter. Date/Time Encounter Note(s) Provider Source Mar 25, 2024 06:53 PM ACCOUNTING OF DISC LOSURES NOTE: LOCAL TITLE: STATE PRESCRIPTION DRUG MONITORING PROGRAM STANDARD TITLE: ACCOUNTING OF DISCLOSURES NOTE DATE OF NOTE: MAR 25, 2024@18:53:53 ENTRY DATE: MAR 25, 2024@18:53:53 AUTHOR: JESSICA PATTEN EXP COSIGNER: URGENCY: STATUS: COMPLETED This [facility] query was submitted by Jessica Patten MD. The clinical justification for this PDMP query is to review controlled substances prescribed outside of the OR, and any additional information that may become available, as an important component of standard clinical care, and in accordance with [facility] policy. Patient information was shared with the [facility] Appriss Theodosia. No prescription(s) for controlled substances outside the OR were found in the last 90 days. 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 He states he was at a roller rink, was spinning on rollerblades when he fell and landed in a seated position, and instantly his lumbar spine flexed forward. He says he felt and heard crunching in his lumbar spine at the time of impact. He has had severe pain in his mid and lower back ever since, located in the midline and on the right side, much worse when he is bearing weight on his right leg. He denies any numbness or weakness. Denies any urinary or fecal incontinence. Took ibuprofen without relief--actually, accidentally took 2400 mg of ibuprofen because he thought his tablets were 200 mg each instead of 600 mg each. He denies hitting his head during the fall. Denies any pain in his hips, knees, ankles, wrists, elbows, shoulders. Denies any rib pain or shortness of breath. REVIEW OF SYSTEMS: See HPI for further details. All 10 systems reviewed and otherwise negative unless otherwise detailed herein. PAST MEDICAL HISTORY: 1) Depressive disorder 2) Sleep disorder 3) [...] - DO NOT CRUSH OR CHEW. 2) OMEPRAZOLE 40MG EC CAP TAKE ONE CAPSULE BY MOUTH ACTIVE EVERY MORNING BEFORE A MEAL FOR ACID REFLUX. TAKE 30 MINUTES PRIOR TO FOOD. 1) ACETAMINOPHEN/HYDROCODONE TAB PO ONE-TIME 1 TABLET (5MG/325MG EA) 2) METHOCARBAMOL TAB PO ONE-TIME 500MG. I have reviewed the patient's medication list with the patient and/or his/her care-seamless tube roller. Any medication discrepancies have been resolved. Patient will be provided with an updated list of his/her medication(s). SURGICAL HISTORY: not pertinent FAMILY HISTORY: not pertinent SOCIAL HISTORY: Social History Main Topics: Smoking status: Denies Alcohol Use: not indorsed Illicit Drug Use: not indorsed ALLERGIES: Review of patient's allergies indicates: Patient has answered NKA PHYSICAL EXAM: VITAL SIGNS: 114/74 (03/25/2024 18:33)88 (03/25/2024 18:33)98% (03/25/2024 18:33)97.9 F [36.6 C] (03/25/2024 18:33)16 (03/25/2024 18:33) Measurement DT PAIN 03/25/2024 18:33 4 CONSTITUTIONAL: No acute distress, Non-toxic appearance, A&O x4 HENT: airway patent, NCAT EYES: Conj pink, sclera clear NECK: Normal range of motion, No tenderness, Supple CARDIOVASCULAR: Normal heart rate, 2+ DPs x4 PULMONARY/CHEST: CTA bilaterally, thorax stable without tenderness ABDOMEN: Bowel sounds normal, Soft, flat, No tenderness BACK: No tenderness over the cervical or upper thoracic spine. Positive tenderness to palpation in the midline over the lower thoracic (starting at approximately T8) and entire lumbar spine , without step-off or deformity. Positive tenderness to palpation over the right-sided paraspinal muscles. No tenderness over the right gluteus muscle, right hip, right thigh EXTREMITIES: Normal range of motion, Intact distal pulses, No edema NEUROLOGIC: Alert & oriented/reactive, face symmetric, speech clear, 5 out of 5 silk opener bilaterally, 5 out of 5 knee flexion and extension bilaterally, 5 out of 5 great toe flexion and extension bilaterally, soft touch sensation intact and symmetric upper and lower extremities bilaterally, antalgic gait, no ataxia, No focal deficits appreciated on cursory screening exam SKIN: Warm, Dry, No erythema, No rash RADIOLOGY: CT THORACIC SPINE W/O CONT, CT LUMBAR SPINE W/O CONT HISTORY: eval for fx/dislcoation COMPARISON: No priors available. TECHNIQUE: The [facility] images were subsequently [facility] by the [facility] for interpretation. Volumetric [...] there is no retropulsion of fracture fragments. ED COURSE & MEDICAL DECISION MAKING: Nursing notes, medications, vital signs, allergies and pertinent labs & imaging studies reviewed (see chart for details) with lab results reviewed with patient and family/caregivers at bedside and radiology results reviewed with patient and any family/caregivers at bedside. Stable, alert, nontoxic, nonfocal with clinically apparent acute L2 and L3 superior endplate fractures with 30% wedge compression, after an axial and hyperflexion injury while rollerblading. Patient neurologically intact, vital signs stable. Ambulatory in the ED, pain reasonably well controlled with oral medications. Stable for discharge home with pain control, TLSO brace, neurosurgery and interventional radiology referrals. Off work note x1 week written. 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 Skelton twice. Spoke with NSurg Dr Taylor who stated he was out of town and not battery container finishing hand, that he would provide me with Dr Skelton's cell and home number. The call then dropped, and he called and spoke briefly with our administrative secretary Sharon. Then Dr Skelton called at 2219. We discussed the pt's symptoms, mechanism of injury, exam, CT findings. He recommended TLSO brace, NSurg f/u, IR consult for consideration of possible kyphoplasty. MEDICATIONS GIVEN IN ED: [ x ] YES [ ] NO DIFFERENTIAL DIAGNOSES CONSIDERED: Lumbar fracture, contusion, muscle strain DECISION to ADMIT / DISCHARGE TIME: 2199 DISPOSITION CONDITION:[ ] Improved [ ] Unchanged [ ] Deteriorated CLINICAL IMPRESSION: 1 -Acute L2 and L3 superior endplate fxs with wedge compressions 2 - 3 - DISCHARGE INSTRUCTIONS AND PATIENT-DIRECTED FOLLOW-UP RECOMMENDATIONS: DIET: regular ACTIVITY: ad hari NEW MEDS: [place], Robaxin, ibuprofen, Colace MEDICATION RECONCILIATION: CONTINUE ALL PRESCRIBED MEDICATIONS DIRECTED EXCEPT: FOLLOW-UP WITH PRIMARY SHOE TRIMMER/SPECIALIST: routine in 1-2 weeks if not improving, sooner if worse RETURN TO EMERGENCY: if any worries or concerns ADDITIONAL SIGNATURE PCP: [ x] YES [ ] NO [ ] not listed Active Outpatient Medications (including Supplies): Active Outpatient Medications Status 1) BUPROPION HCL 150MG 24HR SA TAB TAKE ONE TABLET BY ACTIVE MOUTH EVERY MORNING FOR DEPRESSION SWALLOW WHOLE - DO NOT CRUSH OR CHEW. 2) OMEPRAZOLE 40MG EC CAP TAKE ONE CAPSULE BY MOUTH ACTIVE EVERY MORNING BEFORE A MEAL FOR ACID REFLUX. TAKE 30 MINUTES PRIOR TO FOOD. /cydney/ JESSICA PATTEN MD STAFF PHYSICIAN Signed: 03/25/2024 22:43 Receipt Acknowledged By: 03/30/2024 19:01 /cydney/ SHEELA CAMARILLO MSN, YOSELIN PATTEN,JESSICA MORIN [facility]
--- OUTSIDE RECORDS SUMMARY | 2025-01-15 07:38 | XMS_ITS | Clinical Summary ---
Author Organization [facility] Address [address] [place] [address] Care Team Providers Care Gas Systems Worker Name Role Phone Unknown, Notinfile Primary Care [...] 03/11/2023 4:56 AM CDT Plan of Treatment Health Maintenance Due Date Last Done Comments Depression Screening 1989 Hepatitis C Screening 1989 DTaP/Tdap/Td Vaccine (1 - Tdap) 2000 Varicella Vaccines (1 of 2 - 13+ 2-dose series) 2002 Hepatitis B Screening 2007 Regular Well Visit/Exam 18-64 2007 Influenza Vaccine (#1) 2024 HPV Vaccines Aged Out No longer eligi ble based on patient's age to complete this topic Pneumococcal vaccine <65 Aged Out No longer eligible based on patient's age to complete this topic [place] [address] [place] [address] [place] [place] [address] FORMERLY [facility] CLAIMS [facility] Care Teams Gas Systems Worker Relationship Specialty Start Date End Date Unknown, Notinfile PCP - General 03/11/23
--- OUTSIDE RECORDS SUMMARY | 2025-01-15 07:38 | XMS_ITS | Encounter Summary ---
Author Name [facility] [place] [facility] [place] Address [address] [place] [address] Care Team Providers Care Lean Process Deployment Consultant Name Role Phone BROOKLYN ARAGON Primary Care Provider Unavailab diaz Insurance Providers: All historical and current [...] FOCUS FAMIL Y Oct 08, 2021 [id number] [phone] REISING,T YLER PATIENT CAREMARK ([id number])RX PRESCRIPT ION GEHA Oct 04, 2024 [id number] [phone] REISING,T YLER PATIENT [place] FEP [id number] PRESCRIPT ION FEPRX Aug 16, 2019 [id number] [phone] REISING,T YLER PATIENT GEHA PREFERRED PROVIDER ORGANIZAT ION (PPO) GEHA STAND EVELYN Oct 04, 2024 [id number] [phone] REISING,T YLER PATIENT Selected Encounter This section includes the information on record at [place] for the Encounter. Date/Time Encounter Type Encounter Description Reason Provider Source Jun 11, 2024 01:00 PM PSYTX W PT 45 MINUTES MENTAL [facility] - IND ICD-10-CM F41.9 Anxiety disorder, unspecified TAMIKO LIVE Karen Encounter Template Text not used by [place] Assessments - Encounter Diagnoses This section includes the primary and secondary diagnoses documented for the Encounter. Date/Time Primary/Secondary Diagnosis Diagnosis Name Provider Source Jun 12, 2024 04:27 PM PRIMARY Anxiety disorder, unspecified TAMIKO LIVE [facility] Plan of Treatment: Future Appointments (+ 6 months) and Future Tests (+/- 45 days) The Plan of Treatment section includes future care activities for the patient from all [place] [facility]. This section includes future appointments and future orders which are active, pending or scheduled. Future Appointments This section includes appointments that were scheduled to occur 6 months from the date of the Encounter, up to a maximum of 20 appointments. The data comes from all [facility]. Appointment Date/Time Appointment Type Appointme nt Facility Name Jun 29, 2024 03:00 PM AMBULATORY - NONE [facility] Jul 17, 2024 01:24 PM AMBULATORY - MEDICINE [facility] Jul 22, 2024 10:30 AM AMBULATORY - MEDICINE [facility] Jul 24, 2024 04:14 AM AMBULATORY - MEDICINE [facility] Aug 07, 2024 03:00 PM AMBULATORY - MEDICINE [facility] Oct 07, 2024 04:15 PM AMBULATORY - MEDICINE [facility] Oct 10, 2024 05:20 AM AMBULATORY - MEDICINE [facility] Active, Pending, and Scheduled Orders This section includes a listing of several types of active, pending, and scheduled orders, including clinic medications orders, diagnostic test orders, procedure orders and consult orders; where the start date of the order is 45 days before the date of the Encounter or 45 days after the date of theEncounter. The data comes from all [facility]. Test Date/Time Test Type Test Details Facility Name Jun 29, 2024 12:00 AM Laboratory - Chemi stry Order VITAMIN D, 25-HYDROXY GOLD/RED SST SERUM SP [facility] Social History: Smoking Status (Most current) and Tobacco Use (All prior to encounter date) This section includes the most current, and the historical, smoking and tobacco- related health factors from the [place] facility where the Encounter took place. Current Smoking Status This section includes the most current smoking, or tobacco-related health factor, from the [place] facility where the Encounter took place. Date/Time Current Smoking Status Comment Shameka ity Apr 18, 2022 11:00 AM [place]-TOBACCO FORMER USER [facility] Tobacco Use History This section includes a history of the smoking, or tobacco-related health factors, that were collected on or before the date of the Encounter. The data comes from the [place] facility where the Encounter took place. Date/Time Smoking Status/Tobacco Use Comment F acility Apr 18, 2022 11:00 AM [place]-TOBACCO QUIT 1 TO < 5 YRS [facility] Advance Directives: All historical and current Section Date Range: From patient's date of to the date document was created. This section includes ALL of a patient's completed or amended [place] Advance and Rescinded Directives. The entries below indicate that a directive exists for the patient, but an actual copy is not included with this document. The data comes from all [facility]. Date Advance Directives Provider Source Aug 28, 2023 ADVANCE DIRECTIVE NO TIFICATION AND SCREENING SYLWIA SANTIAGO [facility] May 14, 2023 ADVANCE DIRECTIVE NO TIFICATION AND SCREENING SYLWIA SANTIAGO [facility] Radiology Reports: +/- 30 days of the [...] the Encounter. The data comes from all [place] treatment facilities. Date/Time Radiology Report Provider Source May 20, 2024 02:[address] LUMBAR SPINE W/ O CONT: MERLE LAFLEUR [id number] -1990 M Exm Date: MAY 20, 2024@14:53 Req Phys: SOBIA SORENSEN Loc: [facility]NEUROSURGERY [facility] PASTE MIXER 1 (Req'g Lo Img Loc: [facility]CT IMAGING [facility] Service: Unknown [facility] [address] [place] [address] (Case [id number] COMPLETE) CT LUMBAR SPINE W/O CONT (CT Detailed) CPT:16491 Reason for Study: F/u L2, L3 compression fractyre Clinical History: Responsible Attending: Valarie Attending Contact Number: [phone] Resident Contact Number: Allergies listed in CPRS chart: Patient has answered NKA Creatinine: CREATININE 1.22 mg/dL 04/17/2024 20:00 /eGFR: STL EGFR (within one year). CREATININE 1.22 mg/dL (04/17/24 20:00) Wt: 241 lb [109.32 kg] (04/27/2024 14:41) History of: Renal failure, chronic or acute renal disease: NO Report Status: Verified Date Reported: MAY 21, 2024 Date Verified: MAY 21, 2024 Farrowing Manager E-Sig:/ES/Ronaldo Velasquez MD. FACR. Report: History: F/u L2, L3 compression fracture. Comparison: Prior CT lumbar spine-03/25/2024 Technique: Helical multidetector axial slices through the lumbar spine without intravenous contrast according to center protocol. From the original axial data, sagittal and coronal reconstructions were performed. Findings: Compression fractures at L2 and L3 are redemonstrated. There is minimal increased compression at L3 with a lucent line along the anterior superior corner of L3 which was not present on the prior study. The deformity at L2 is unchanged. The lumbar curve is mildly kyphotic. There is no spinal stenosis identified. The Ivory density in the anterior L1 segment is stable. Impression: Minimal increased compression at L3 as described. The deformity at L2 is stable. Primary Interpreting Staff: Ronaldo Velasquez MD. FACR, Neuroradiologist (Farrowing Manager) /RONALDO ARZATE [facility] May 15, 2024 09:10 AM BONE DENSITY-P: MERLE LAFLEUR [id number] -1990 M Exm Date: MAY 15, 2024@09:10 Req Phys: SOBIA SORENSEN Loc: [facility]NEUROSURGERY ALMOND PASTE MIXER 1 (Req'g Lo Img Loc: [facility]BONE DENSITY Service: Unknown [facility] [address] [place] [address] (Case [id number] COMPLETE) NM BONE DENSITY(DXA), AXIAL SKELE(NM Detailed) CPT:01278 Reason for Study: L2, L3 comprerssion (Case [id number] COMPLETE) NM BONE DENSITY(DXA), APPENDICULA(NM Detailed) CPT:78015 Clinical History: BONE DENSITY Osteoporosis and Vertebral Fracture Screening Information Reason for exam: Compression fracture WT: 241 lb [109.32 kg] (04/27/2024 14:41) HT: 74 in [188.0 cm] (04/27/2024 14:41) Report Status: Verified Date Reported: MAY 15, 2024 Date Verified: MAY 15, 2024 Farrowing Manager E-Sig:/ES/Leticia Childs M.D. Report: Dual -Energy X-ray Absorptiometry (DXA) with Trabecular Bone Score (TBS) calculation Findings: Bone mineral density measurements of the forearm, proximal femur and lumbar spine with their appropriate regions of interest outlined are available for viewing in [facility] and Radiology Viewer. Lumbar spine: Measured BMD in L1-L4 is 1.105 g/cm2; T-score = 0.1 1/3 Radius: Measured BMD in left one-third radius is 0.758 g/cm2; T-score = -1.1 Femoral neck: Measured BMD in left femoral neck is 0.941 g/cm2; T-score = 0.1 Total hip: Measured BMD in left total hip is 1.037 g/cm2; T-score = 0.0 Interval change: No prior for comparison. Trabecular bone score (TBS) L1-L4: 1.309 = partially degraded microarchitecture. Impression: 1. The minimum BMD T-score positions the patient in the osteopenia category. 2. The combined results of BMD and TBS values suggest a moderate fracture risk. WHO classification: Normal: T-score -1.0 or greater; Osteopenia/low bone mass: T-score -1.1 to -2.4; Osteoporosis: T-score -2.5 or lower; Primary Interpreting Staff: Leticia Childs M.D., NUCLEAR MEDICINE PHYSICIAN (Farrowing Manager) /LETICIA LOYA [facility] Encounter Notes: All associated encounter notes This section contains the clinical notes associated to the Encounter. Date/Time Encounter Note(s) Provider Source Jun 11, 2024 01:00 PM SOCIAL WORK NOTE: LOCAL TITLE: PSYCHOTHERAPY [facility] STANDARD TITLE: SOCIAL WORK NOTE DATE OF NOTE: JUN 11, 2024@13:00 ENTRY DATE: JUN 11, 2024@13:55:34 AUTHOR: TAMIKO LIVE COSIGNER: URGENCY: STATUS: COMPLETED PSYCHOTHERAPY PROGRESS NOTE PATIENT: MERLE LAFLEUR NATURE OF ENCOUNTER: Individual psychotherapy TIME SPENT WITH PATIENT (Minutes): 50 min Location: [facility] SESSION FORMAT: [x] [id number] [ ] Video Telehealth [ ] Phone Confirmed 's location and phone number for virtual appointment. [ x] Yes [ ] N/A NOTE: Use separate CVT template, if appropriate SESSION NUMBER (Optional): 5 DIAGNOSIS BEING TREATED THIS VISIT: CARLOS, MDD RELEVANT HISTORICAL DEVELOPMENTS SINCE LAST CONTACT: [x] No significant developments since last contact [ ] Specify: TYPE OF INTERVENTIONS PROVIDED BY THERAPIST: [ ] Rapport Building [ ] Shared decision-making regarding goals of care [ x] Psychotherapy (Specify modality): [ ] Health Psychology Interventions [ ] Graduation Planning [ ] Other: DESCRIPTION OF INTERVENTIONS PROVIDED BY THERAPIST: presented for session with this continuity writer after several months of break in therapy due to ongoing health issues. presented with normal mood, dressed appropriately and did not appear to be in any immediate distress. notes recently returning to work; explained that it was an interesting first day back due to and event where a worker was found ; reports he had to watch the body until the pearl maker arrived. He reports not finding this distressing. reports wanting to continue discussion around his presybeterian upbringing as he found this helpful in better understanding his current mental health as it related to his anxiety and depression. [place] reports wanting to talk to his sister about why it is difficult for him to talk to her about their shared trauma, as he feels responsible for not getting them out sooner; inquired if she could join a session to help facilitate this discussion. CLAUDIO was agreeable to this plan and encouraged to elaborate on what he would find helpful in having continuity writer present to assist; encouraged [place] to first try this on his own and went over communication skills to use to convey these thoughts and feelings on his own and made plan to assist [place] if this was not something he felt he could do on his own. Through discussion, [place] continues to feel view of self has ultimately been, I felt like a failure for not protecting his sister and getting her out sooner. SW validated these feelings and helped stay in present process to distill these emotions and make sense of them. He reports finding it helpful understanding where this comes from and knows that he needs to forgive himself but feels he has been living his life trying to redeem himself for the thigns he didn't get right during that time; reports feeling life was difficult on many occassions where he was trying to do the right thing and now has a hard time trusting any choice that he makes due to this. Throughout the session, was engaged and insightful and had good collaboration. ASSESSMENT MEASURES USED THIS SESSION: NOTE: Measures should be entered into Mental Health Financial Services Specialist if available and then entered into the chart. [ ] Measures/Scores: [ ] Results are located in Mental Health Diagnostic Study Note [ x] Measures not collected/administered this session: Rationale and plan for next administration: OR, Efforts made to increase measurement: [ ] Symptom review completed in Progress Towards Goals MENTAL STATUS/PRESENTATION: Client arrived on time and appeared alert and engaged throughout session. Client was neatly groomed and appropriately dressed for weather/setting. Mood stable, cooperative, and pleasant. No signs of psychosis reported or observed. Thought/speech processes WNL. No report or evidence of self-directed violent thoughts/behaviors, SI/HI, plan, or intent. Client is aware of available crisis resources and agreeable to using as needed. RISK ASSESSMENT: NOTE: Complete either No Change in Risk Factors or New/Updated Risk Assessment . [x ] NO CHANGE IN RISK FACTORS Related to Suicide or Homicide. [place] did not report any current suicidal/homicidal ideation, plan, or intent. [place] did not appear to be at imminent risk for suicide or homicide at this time and is considered sustainable at the current level of care. [ ] NEW/UPDATED RISK ASSESSMENT: -RELEVANT RISK AND PROTECTIVE FACTORS: -IDEATION: [ x] denied current suicidal or homicidal ideation, plan, or intent. [ ] Suicidal or homicidal ideation/behavior WAS identified: -CLINICAL JUDGMENT AND DISPOSITION: [x ] In consideration of relevant risk and protective factors, the [place] did NOT appear to be at imminent risk for suicide or homicide at this time and IS sustainable at the current level of care. -Comments: [ ] [place] IS considered to be at INCREASED RISK for suicide or homicide based upon: -Actions/interventions taken to address risk and prevent harm include: -Emergency protocols initiated were: -Comments: MEASURABLE TREATMENT GOALS FOR THIS EPISODE OF CARE: NOTE: Goals and progress must be measurable via some form of formal assessment (e.g., PHQ-9) or review of specific symptoms or functioning. The following goals were developed using shared decision-making with input by the [place]: #1. GOAL/OBJECTIVES FOR THIS EPISODE OF CARE: I have anxiety and I don't have any energy and motivation to do things. I want to get that under control and be able to do things with my kids. PROGRESS TOWARDS GOAL OR SYMPTOM REVIEW: Re-engagement in therapy after break due to physical health concerns. #2. GOAL/OBJECTIVES FOR THIS EPISODE OF CARE: PROGRESS TOWARDS GOAL OR SYMPTOM REVIEW: COLLABORATIVE RECOMMENDATIONS/PLAN: RTC on 06/19/24 at 2PM for F2F -Assigned Therapy Tasks: [x ] Collaboratively discussed outcomes related to assessment and treatment progress. Based on this discussion: [ x] No changes to plan of care. expressed agreement with therapy tasks and [id number] plan. [ ] Recommend changes to plan of care: Reviewed proposed changes. Discussed potential benefits, risks, and complications. agreed to proceed with changes. [ ] YES [ ] NO Comments: /cydney/ Tamiko Live LCSW Clinic Therapist, [facility] [place] Signed: 06/12/2024 16:28 TAMIKO LIVE [facility]
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
--- OUTSIDE RECORDS SUMMARY | 2025-01-15 07:39 | XMS_ITS | Clinical Summary ---
Author Organization [facility] Address [address] [place] [address] Care Team Providers Care Print Washer Name Role Phone Nile Garza MD Primary Care Provider [phone] Allergies No known active allergies Medications omeprazole 20 MG capsuleIndicatio ns:Gastroesophag eal reflux disease, esophagitis presence not specified Take 1 capsule (20 mg total) by mouth daily. 90 capsule 03/17/2019 Active pseudoephedrine ER 120 MG 12 hr tabletIndication s:Head congestion Take 1 tablet (120 mg total) by mouth every 12 (twelve) hours. 15 tablet 06/02/2019 Active methylPREDNISolo ne, SOPHIE, 4 MG tablet 6 TABS X 1 DAY, 5 TABS DAY 2, 4 TABS DAY 3, 3 TABS DAY 4, 2 TABS DAY 5, 1 TAB DAY SIX 1 each 08/04/2019 Active Active Problems Problem Noted Date Diagnosed Date Atypical mole 03/17/2019 Gastroesophageal reflux dise ase, esophagitis presence not specified 03/17/2019 Family History Relation Status Comments Father Alive Mother Alive Social History Tobacco Use Types Packs/Day Years Used Date Smoking Tobacco: Never Smokeless Tobacco: Never Alcohol Use Standard Drinks/Week Comments No 0 (1 standard drink = 0.6 oz pur e alcohol) AUDIT-C Answer Date Recorded Frequency of Alcohol Consumption Never 03/17/2019 Average Number of Drinks Not on file 019 Frequency of Binge Drinking Not on file 02/22 Sex and Gender Information Value Date Recorded Sex Assigned at Not on file Legal Sex Male 7:47 PM CDT Gender Identity Not on file Sexual Orientation Not on file Last Filed Vital Signs Vital Sign Reading Time Taken Comments Blood Pressure 126/70 08/10/2019 9:36 AM PHOTO BOOTH OPERATOR Pulse 72 08/10/2019 9:36 AM PHOTO BOOTH OPERATOR Temperature 36.9 C (98.5 F) 08/04/2019 6:45 PM PHOTO BOOTH OPERATOR Respiratory Rate 16 08/04/2019 6:45 PM PHOTO BOOTH OPERATOR Oxygen Saturation 98% 08/10/2019 9:36 AM PHOTO BOOTH OPERATOR Inhaled Oxygen Concentration - - Weight 107 kg (236 lb) 08/10/2019 9:36 AM PHOTO BOOTH OPERATOR Height 188 cm (6' 2 ) 08/10/2019 9:36 AM PHOTO BOOTH OPERATOR Body Mass Index 30.3 08/10/2019 9:36 AM PHOTO BOOTH OPERATOR Plan of Treatment Health Maintenance Due Date Last Done Comments Hepatitis C 2007 DTaP, Tdap and Td Vaccines ( 1 - Tdap) 2008 Hepatitis B Vaccines (1 of 3 - 19+ 3-dose series) 2008 Annual Physical 03/17/2020 03/17/2019 COVID-19 Vaccine (1 - 2023-2 5 season) 2024 HPV Vaccines Aged Out No longer eligi ble based on patient's age to complete this topic Meningococcal B Vaccine Aged Out No l onger eligible based on patient's age to complete this topic Meningococcal Vaccine Aged Out No stefania lillian eligible based on patient's age to complete this topic Pneumococcal Vaccine: Pediat rics (0 to 5 Years) and At-Risk Patients (6 to 49 Years) Aged Out No longer eligi ble based on patient's age to complete this topic RSV Immunizations Under 20 Months Aged Out No longer eligible based on patient's age to complete [place] [id number] TODD Care Teams Print Washer Relationship Specialty Start Date End Date Nile Garza MD PCP - General FAMILY PRACTICE 02/19/19
--- OUTSIDE RECORDS SUMMARY | 2025-01-15 07:39 | XMS_ITS | Encounter Summary ---
Author Name [facility] [place] [facility] [place] [facility] [facility] [place] Address [address] [place] [address] Care Team Providers Care Head Waitress Name Role Phone BROOKLYN ARAGON Primary Care [...] FOCUS FAMIL Y Oct 08, 2021 132 [id number] [phone] REISING,T YLER PATIENT CAREMARK ([id number])RX PRESCRIPT ION GEHA Oct 04, 2024 [id number] [phone] REISING,T YLER PATIENT CAREMARK FEP [id number] PRESCRIPT ION FEPRX Aug 16, 2019 [id number] [phone] REISING,T YLER PATIENT GEHA PREFERRED PROVIDER ORGANIZAT ION (PPO) GEHA STAND EVELYN Oct 04, 2024 [id number] REISING,T YLER PATIENT Selected Encounter This section includes the information on record at [place] for the Encounter. Date/Time Encounter Type Encounter Description Reason Provider Source Mar 03, 2024 02:00 PM PSYTX W PT 45 MINUTES [facility] - IND ICD-10-CM F33.1 Major depressive disorder, recurrent, moderate BORN,TAMIKO R E Encounter Template Text not used by [place] Assessments - Encounter Diagnoses This section includes the primary and secondary diagnoses documented for the Encounter. Date/Time Primary/Secondary Diagnosis Diagnosis Name Provider Source Mar 04, 2024 12:51 PM PRIMARY Major depressive disorder, recurrent, moderate BORN,TAMIKO R [facility] Mar 04, 2024 12:51 PM SECONDARY Anxiety disorder, unspecified BORN,TAMIKO R [facility] Plan of Treatment: Future Appointments (+ 6 months) and Future Tests (+/- 45 days) The Plan of Treatment section includes future care activities for the patient from all [place] [facility] This section includes future appointments and future orders which are active, pending or scheduled. Future Appointments This section includes appointments that were scheduled to occur 6 months from the date of the Encounter, up to a maximum of 20 appointments. The data comes from all [place] treatment facilities. Appointment Date/Time Appointment Type Appointme nt Facility Name Mar 04, 2024 11:00 AM AMBULATORY - MEDICINE [facility] Mar 13, 2024 11:00 AM AMBULATORY - PSYCHIATRY [facility] Mar 20, 2024 09:00 AM AMBULATORY - PSYCHIATRY [facility] Mar 25, 2024 04:00 PM AMBULATORY - PSYCHIATRY [facility] Mar 25, 2024 06:00 PM AMBULATORY - MEDICINE [facility] Apr 08, 2024 02:00 PM AMBULATORY - PSYCHIATRY [facility] Apr 16, 2024 03:06 AM AMBULATORY - MEDICINE [facility] Apr 16, 2024 08:30 AM AMBULATORY - SURGERY [facility] Apr 22, 2024 02:00 PM AMBULATORY - PSYCHIATRY [facility] Apr 22, 2024 03:30 PM AMBULATORY - MEDICINE [facility] Apr 27, 2024 02:45 PM [facility] May 01, 2024 11:00 AM AMBULATORY - NONE [facility] May 15, 2024 09:30 AM AMBULATORY - SURGERY . [facility] May 20, 2024 03:30 PM AMBULATORY - NONE [facility] May 28, 2024 02:00 PM AMBULATORY - PSYCHIATRY [facility] Jun 03, 2024 11:30 AM AMBULATORY - SURGERY [facility] Jun 11, 2024 01:00 PM AMBULATORY - PSYCHIATRY [facility] Jun 29, 2024 03:00 PM AMBULATORY - NONE [facility] Jul 17, 2024 01:24 PM AMBULATORY - MEDICINE [facility] Jul 22, 2024 10:30 AM AMBULATORY - MEDICINE [facility] Active, Pending, and Scheduled Orders This section includes a listing of several types of active, pending, and scheduled orders, including clinic medications orders, diagnostic test orders, procedure orders and consult orders; where the start date of the order is 45 days before the date of the Encounter or 45 days after the date of theEncounter. The data comes from all [facility] facilities. Test Date/Time Test Type Test Details Facility Name Jan 18, 2024 04:36 AM Laboratory - Chemistry Order CBC BLOOD STAT WC ONCE [facility] January 23, 2024 12:00 AM Laboratory - Chemistry Order HGA1C BLOOD [facility] January 23, 2024 12:00 AM Laboratory - Chemistry Order LIPID PANEL (STL) GREEN LI/HEP BLD/PLAS PLASMA [facility] January 23, 2024 12:00 AM Laboratory - Chemistry Order COMPREHENSIVE METABOLIC PANEL GREEN LI/HEP BLD/PLAS PLASMA [facility] January 23, 2024 12:00 AM Laboratory - Chemistry Order VITAMIN D, 25-HYDROXY GOLD/RED SST SERUM [facility] January 23, 2024 12:00 AM Laboratory - Chemistry Order B12 GOLD/RED SST SERUM [facility] January 23, 2024 12:00 AM Laboratory - Chemistry Order TSH (MA-PB) GOLD/RED SST SERUM [facility] Mar 06, 2024 12:00 AM Laboratory - Chemistry Order CBC (DIFF&PLT) BLOOD SP [facility] Mar 06, 2024 12:00 AM Laboratory - Chemistry Order COMPREHENSIVE METABOLIC PANEL BLOOD PLASMA SP [facility] Mar 06, 2024 12:00 AM Laboratory - Chemistry Order URINALYSIS URINE SP [facility] Mar 06, 2024 12:00 AM Laboratory - Chemistry Order LIPID PANEL BLOOD PLASMA SP [facility] Mar 06, 2024 12:00 AM Laboratory - Chemistry Order TSH-G,LC,J,T BLOOD PLASMA [facility] Mar 06, 2024 12:00 AM Laboratory - Chemistry Order HEMOGLOBIN %A1C PROFILE BLOOD SP [facility] Mar 06, 2024 12:00 AM Laboratory - Chemistry Order MICROALBUMINURIA(IVONNE) URINE SP [facility] Apr 16, 2024 11:39 AM Laboratory - Chemistry Order MRSA SURVL NARES DNA NARES [facility] Lab Results: +/- 30 days of the encounter This section includes the Chemistry and Hematology Lab Results on record with [place] for the patient. Radiology Reports and Pathology Reports are provided separately, in subsequent sections. Lab Results This section contains the Chemistry/Hematology Results that were resulted 30 days before or 30 daysafter the date of the Encounter. Date/Time Source Result Type Result - Unit Interpretation Reference Range Specimen Type Comment Mar 01, 2024 09:06 PM [facility] HGA1C BLOOD Specimen Type: BLOOD No comment entered. Ordering Provider: ROYA CARTAGENA Report Released Date/Time: Feb 24, 2024 04:42 PM Reporting Lab: [facility] [address] [phone] Performing Lab: [facility] [address] [address] HGA1C 5.3 4.0-6.0 Mar 01, 2024 09:06 PM [facility] LIPID PANEL (STL) PLASMA Specimen Type: PLASM A Comment: No hemolysis noted. Ordering Provider: ROYA CARTAGENA Report Released Date/Time: Feb 24, 2024 04:42 PM Reporting Lab: [place] [id number] [facility] [address] Performing Lab: [facility] [address] [address] CHOLESTEROL 174 mg/dL 0-200 TRIGLYCERIDE 220 mg/dL H 0-150 CALCULATED LDL 98 mg/dL HDL(New) 32 mg/dL L >40 Mar 01, 2024 09:06 PM [facility] COMPREHENSIVE METABOLIC PANEL PLASMA Specimen Type: PLASMA Comment: No hemolysis noted. Ordering Provider: ROYA CARTAGENA Report Released Date/Time: Feb 24, 2024 04:42 PM Reporting Lab: [facility] [address] [phone] Performing Lab: [address] [address] CREATININE 1.33 mg/dL H 0.7-1.3 UREA NITROGEN [...] 71.9 >60 Mar 01, 2024 09:06 PM [facility] URINALYSIS (STL-PB) URINE Specimen Type: URIN E No comment entered. Ordering Provider: ROYA CARTAGENA Report Released Date/Time: Feb 24, 2024 04:42 PM Reporting Lab: [facility] [address] [address] Performing Lab: [address] [address] URINE COLOR Light-Yellow Yellow U.BILIRUBIN Negative mg/dL [...] 1.025 1.005-1.029 Mar 01, 2024 09:06 PM [facility] CBC BLOOD Specimen Type: BLOOD No comment entered. Ordering Provider: ROYA CARTAGENA Report Released Date/Time: Feb 24, 2024 04:42 PM Reporting Lab: [facility] [address] [address] Performing Lab: [facility] [address] [address] WBC 7.7 10*3/uL 3.6-11.2 RBC 5.34 10*6/uL [...] 0.60 BASOPHILS, ABSOLUTE 0.07 10*3/uL 0.00-0. 20 Social History: Smoking Status (Most current) and Tobacco Use (All prior to encounter date) This section includes the most current, and the historical, smoking and tobacco- related health factors from the [place] facility where the Encounter took place. Current Smoking Status This section includes the most current smoking, or tobacco-related health factor, from the [place] facility where the Encounter took place. Date/Time Current Smoking Status Comment Shameka martínez Apr 18, 2022 11:00 AM [place]-TOBACCO FORMER USER [facility] Tobacco Use History This section includes a history of the smoking, or tobacco-related health factors, that were collected on or before the date of the Encounter. The data comes from the [place] facility where the Encounter took place. Date/Time Smoking Status/Tobacco Use Comment F acility Apr 18, 2022 11:00 AM [place]-TOBACCO QUIT 1 TO < 5 YRS [facility] Advance Directives: All historical and current Section Date Range: From patient's date of to the date document was created. This section includes ALL of a patient's completed or amended [place] Advance and Rescinded Directives. The entries below indicate that a directive exists for the patient, but an actual copy is not included with this document. The data comes from all [place] facilities. Date Advance Directives Provider Source Aug 28, 2023 ADVANCE DIRECTIVE NO TIFICATION AND SCREENING SYLWIA SANTIAGO [facility] May 14, 2023 ADVANCE DIRECTIVE NO TIFICATION AND SCREENING SYLWIA SANTIAGO [facility] Radiology Reports: +/- 30 days of [...] the Encounter. The data comes from all [place] treatment facilities. Date/Time Radiology Report Provider Source Mar 25, 2024 07:[address] LUMBAR SPINE W/ O CONT: CIARRAMERLE JOLENE [id number] -1990 M Exm Date: MAR 25, 2024@19:39 Req Phys: JESSICA PATTEN Loc: [facility]Y [facility]PT 3RD SHIFT (R Img Loc: [facility] IMAGING [facility] Service: Unknown [facility], [address] [place] [address] (Case [id number] COMPLETE) CT LUMBAR SPINE W/O CONT (CT Detailed) CPT:26883 Reason for Study: eval for fx/dislocation Clinical History: Responsible Attending: DR JESSICA PATTEN Attending Contact Number: [phone] Resident Contact Number: FELL while roller blading. [...] 25, 2024 Date Verified: MAR 25, 2024 Jet Piercer Operator E-Sig: Report: CT THORACIC SPINE W/O CONT, CT LUMBAR SPINE W/O CONT HISTORY: eval for fx/dislcoation COMPARISON: No priors available. TECHNIQUE: The study was protocoled and supervised at the local [place] facility. 2807 images were subsequently received by the [place] National Teleradiology Program (NTP) for interpretation. Volumetric [...] fracture fragments. READING PHYSICIAN: Caio Rollins MD -[id number] 03/25/2024 18:30 PDT [facility] National Teleradiology Program [phone] (For Medical Practitioner Use Only) Attention Patients / Veterans: If you have questions or concerns about these test results, please contact your ordering provider or primary care team. Primary Interpreting Staff: RADIOLOGY,OUTSIDE SERVICE, Staff Physician / RADIOLOGY,OUTSIDE SERVICE [facility] Mar 25, 2024 07:[address] THORACIC SPINE W/O CONT: MERLE LAFLEUR [id number] -1990 M Exm Date: MAR 25, 2024@19:39 Req Phys: JESSICA PATTEN Loc: [facility]PT 3RD SHIFT (R Img Loc: [facility] IMAG[facility] Service: Unknown [facility], [address] [place] [address] (Case [id number] COMPLETE) CT THORACIC SPINE W/O CONT (CT Detailed) CPT:29532 Reason for Study: eval for fx/dislcoation Clinical History: Responsible Attending: dr jessica patten Attending Contact Number: [phone] Resident Contact Number: FELL while roller blading. [...] 25, 2024 Date Verified: MAR 25, 2024 Jet Piercer Operator E-Sig: Report: CT THORACIC SPINE W/O CONT, CT LUMBAR SPINE W/O CONT HISTORY: eval for fx/dislcoation COMPARISON: No priors available. TECHNIQUE: The study was protocoled and supervised at the local [place] facility. 2807 images were subsequently received by the [place] National Teleradiology Program (NTP) for interpretation. Volumetric [...] fracture fragments. READING PHYSICIAN: Caio Rollins MD -[id number] 03/25/2024 18:30 PDT [facility] National Teleradiology Program [phone] (For Medical Practitioner Use Only) Attention Patients / Veterans: If you have questions or concerns about these test results, please contact your ordering provider or primary care team. Primary Interpreting Staff: RADIOLOGY,OUTSIDE SERVICE, Staff Physician / RADIOLOGY,OUTSIDE SERVICE [facility] Encounter Notes: All associated encounter notes This section contains the clinical notes associated to the Encounter. Date/Time Encounter Note(s) Provider Source Mar 03, 2024 02:01 PM SOCIAL WORK NOTE: LOCAL TITLE: SOCIAL WORK [facility] STANDARD TITLE: SOCIAL WORK NOTE DATE OF NOTE: MAR 03, 2024@14:01 ENTRY DATE: MAR 03, 2024@14:01:37 AUTHOR: TAMIKO LIVE COSIGNER: URGENCY: STATUS: COMPLETED COGNITIVE BEHAVIORAL THERAPY FOR DEPRESSION (CBT-D): INITIAL PHASE Time in session (in minutes): 50 SESSION NUMBER: 1 SESSION FORMAT Video Telehealth Session SESSION LOCATION [facility] DIAGNOSIS: Primary (focus of treatment): [facility] ASSESSMENT Date Instrument Raw Trans Scale 03/03/2024 14:13 PHQ9 12 PHQ9 02/25/2024 14:41 PHQ9 13 PHQ9 02/04/2024 15:50 PHQ9 15 PHQ9 05/31/2022 09:17 PHQ9 8 PHQ9 05/17/2022 09:03 PHQ9 11 PHQ9 05/04/2022 10:40 PHQ9 14 PHQ9 OTHER ASSESSMENT MEASURES CAR[facility]-7 SESSION CONTENT: In this initial phase session of Cognitive Behavioral Therapy for Depression (CBT-D), the following therapeutic activities were performed: MOTIVATIONAL ENHANCEMENT --Identified short-term goals in several areas of functioning. --Identified the consequences or impact of the target diagnosis/problem (or other symptoms). --Identified the benefits of reducing the severity of the target diagnosis/problem. --Assessed attitude toward therapy. --Assessed any barriers to attending therapy and assisted the in problem-solving these barriers. SOCIALIZATION TO CBT Provided a brief description of CBT and how CBT relates to the treatment goals. Provided information about the efficacy of CBT. Described prioritized agenda setting. Described how the PHQ-9 will be completed and scored for each session. Described how homework will be assigned and discussed each session. Reviewed the length (16 sessions) and frequency (weekly or biweekly) of treatment. TREATMENT GOALS [place]'s presenting problem: reports ongoing anxiety attacks as well as depression due to fear of unsafe situations Treatment goals: reports ongoing anxiety, specifically related to his kids safety and wellbeing as well as being highly aware of safety around him; reports he was at the [place] with his kids he reports feeling anxious and nervous throughout. 1. Large Crowds- reports feeling hyper focused and hyper vigilant; reports that his is exteremly stressful for2. Irritability; reports that he feels irritable when he gets anxious He reports things went well today with using the walk-talkies three kids Goal: I want to have energy to spend time with my kids. reports feeling he knows that we aren't in a safe area in [place] and feels he needs to look at people's hands and make sure things are safe. He reports this takes the focus of his kids and he wants to work on remaining more present focused. COLLABORATIVE HOMEWORK ASSIGNMENT: The homework assignment for this session was: Looking over cognitive disotrtions The homework assignment and goal of the assignment was written down. The therapist inquired about [place]'s understanding of the homework assignment and its rationale. Therapist and [place] discussed the likelihood that the [place] will do the homework. Specific roadblocks or challenges for doing the homework were discussed. na FINAL SUMMARY AND FEEDBACK: COLLABORATION The degree of collaboration between the [place] and the therapist in the current session was high. Description of collaboration in this session: ADDITIONAL SESSION INFORMATION: What Ifs: Someone pulls a firearmI can't pull someone to safety I do somenthing wrong and I get myself? Keeps his mind on things like doing yard work and tries to distract himself. Goes for walks sometimes 15 cognitive distortions and discussed symptoms of anxiety with fight or flight response PLAN Next session planned for agreed upon date/time of: 03/13/24 at 11 AM for DaisyF /cydney/ Tamiko Live LCSW Clinic Therapist, [facility] Signed: 03/04/2024 12:51 TAMIKO LIVE [facility]
--- OUTSIDE RECORDS SUMMARY | 2025-01-15 07:39 | XMS_ITS | Encounter Summary ---
Author Name [facility] Organization [facility] Address [address] [place] [address] Care Team Providers Care Tutoring Clinician Name Role Phone BROOKLYN ARAGON Primary Care [...] FOCUS FAMIL Y Oct 08, [phone] [id number] [phone] REISING,T YLER PATIENT CAREMARK ([id number])RX PRESCRIPT ION GEHA Oct 04, 2024 [id number] [phone] REISING,T YLER PATIENT CAREMARK FEP [id number] PRESCRIPT ION FEPRX Aug 16, 2019 [id number] [phone] REISING,T YLER PATIENT GEHA PREFERRED PROVIDER ORGANIZAT ION (PPO) GEHA STAND EVELYN Oct 04, 2024 [id number] REISING,T YLER PATIENT Selected Encounter This section includes the information on record at MD for the Encounter. Date/Time Encounter Type Encounter Description Reason Provider Source Dec 24, 2024 08:30 AM OFFICE O/P NEW MOD 45 MIN PAIN CLINIC ICD-10-CM S32.020S Wedge compression fracture of second lum vertebra, sequela ALPA OSBOR[facility] Karen Encounter Template Text not used by MD Assessments - Encounter Diagnoses This section includes the primary and secondary diagnoses documented for the Encounter. Date/Time Primary/Secondary Diagnosis Diagnosis Name Provider Source Dec 24, 2024 09:08 AM PRIMARY Wedge compression fracture of second lum vertebra, sequela ALPA OSBORNE [facility] Dec 24, 2024 09:08 AM SECONDARY Other chronic pain ALPA OSBORNE [facility] Dec 24, 2024 09:08 AM SECONDARY Other spondylosis, lumbar region ALPA OSBORNE [facility] Plan of Treatment: Future Appointments (+ 6 months) and Future Tests (+/- 45 days) The Plan of Treatment section includes future care activities for the patient from [facility]. This section includes future appointments and future orders which are active, pending or scheduled. Future Appointments This section includes appointments that were scheduled to occur 6 months from the date of the Encounter, up to a maximum of 20 appointments. The data comes from all [facility]. Appointment Date/Time Appointment Type Appointme nt Facility Name Jan 08, 2025 07:30 AM AMBULATORY - NONE [facility] Jan 19, 2025 08:30 AM AMBULATORY - REHAB MEDICIN E [facility] Apr 01, 2025 08:30 AM AMBULATORY - REHAB MEDICIN E [facility] Active, Pending, and Scheduled Orders This section includes a listing of several types of active, pending, and scheduled orders, including clinic medications orders, diagnostic test orders, procedure orders and consult orders; where the start date of the order is 45 days before the date of the Encounter or 45 days after the date of theEncounter. The data comes from all [facility]. Test Date/Time Test Type Test Details Facility Name Dec 24, 2024 12:00 AM Laboratory - Chemi stry Order VITAMIN D, 25-HYDROXY GOLD/RED SST SERUM SP [facility] Dec 24, 2024 12:00 AM Laboratory - Chemi stry Order B12 GOLD/RED SST SERUM SP [facility] Dec 24, 2024 08:58 AM Consult Order PT OUTPT S TL Cons Line Repairer [facility] Jan 08, 2025 09:52 AM Consult Order [facility] DENTAL GEN Cons Line Rep[facility] Vital Signs: All taken on the encounter date This section contains inpatient and outpatient Vital Signs collected on the date of the Encounter. Date/Time Temperature Pulse Blood Pressure Respiratory Rate SP02 Pain Height Weight Body Mass Index Source Dec 24, 2024 08:33 AM 97.5 80 130/85 20 97 3 [facility] Social History: Smoking Status (Most current) and Tobacco Use (All prior to encounter date) This section includes the most current, and the historical, smoking and tobacco- related health factors from the MD facility where the Encounter took place. Current Smoking Status This section includes the most current smoking, or tobacco-related health factor, from the MD facility where the Encounter took place. Date/Time Current Smoking Status Comment Facil ity Apr 18, 2022 11:00 AM MD-TOBACCO QUIT 1 TO < [address] [facility] Tobacco Use History This section includes a history of the smoking, or tobacco-related health factors, that were collected on or before the date of the Encounter. The data comes from the MD facility where the Encounter took place. Date/Time Smoking Status/Tobacco Use Comment F acility Apr 18, 2022 11:00 AM MD-TOBACCO QUIT 1 TO < [address] [facility] Advance Directives: All historical and current Section Date Range: From patient's date of to the date document was created. This section includes ALL of a patient's completed or amended MD Advance and Rescinded Directives. The entries below indicate that a directive exists for the patient, but an actual copy is not included with this document. The data comes from all MD facilities. Date Advance Directives Provider Source Aug 28, 2023 ADVANCE DIRECTIVE NO TIFICATION AND SCREENING SYLWIA SANTIAGO [facility] May 14, 2023 ADVANCE DIRECTIVE NO TIFICATION AND SCREENING SYLWIA SANTIAGO [facility] Encounter Notes: All associated encounter notes This section contains the clinical notes associated to the Encounter. Date/Time Encounter Note(s) Provider Source Dec 24, 2024 08:16 AM PAIN CONSULT: LOCAL TITLE: PAIN REHAB CTR CLINIC CONSULT [facility] STANDARD TITLE: PAIN CONSULT DATE OF NOTE: DEC 24, 2024@08:16 ENTRY DATE: DEC 24, 2024@08:16:24 AUTHOR: ALPA OSBORNE COSIGNER: URGENCY: STATUS: COMPLETED PAIN REHAB CTR CLINIC CONSULT [facility] Has ADDENDA Pain Management Consult Reply Referring provider: MARK TIAN Patient identifiers: full name and birthdate CHIEF COMPLAINT/REASON FOR REFERRAL: low back pain HISTORY OF PRESENT ILLNESS: Patient is a 34 yo M with a PMHx significant for depression, MARY, lbp, GERD, TBI, anxiety, migraines, pes planus that presents to our clinic with low back pain. He does have chronic hx of low back pain since after duty however pt had a fall while rollerblading with his kids last March after which the back pain worsened. He has seen nsgy afterwards after which he reported 90% improvement of pain. Initially had right lower extremity radicular pain however this resolved. Pt was evaluated by nsgy and IR for which conservative management was recommended. Pt reports he continues to have pain in the low back, worse at night time, nonradiating, middle of the low back, sharp. Can get up to a 6/10. No numbness. Worse with standing against a wall. Better with lying on his side. +spasms occasionally. Today, patient denies bowel/bladder incontinence, weakness, or falls. Medications: lidoderm was ordered but hasn't trialed, prn ibuprofen - helps prior meds: diclofenac gel, methocarbamol, APAP Physical Therapy: in the past when AD, does some HEP. Also reports he tried red light therapy which helped. EMG/Imagin05/20/24 CT lumbar spine Compression fractures at L2 and L3 are redemonstrated. There is minimal increased compression at L3 with a lucent line along the anterior superior corner of L3 which was not present on the prior study. The deformity at L2 is unchanged. The lumbar curve is mildly kyphotic. There is no spinal stenosis identified. The Ivory density in the anterior L1 segment is stable. 05/01/24 MRI Lumbar spine Mild retrolisthesis at L5-S1 is redemonstrated. Small [...] ligamentum flavum hypertrophy. Mild central canal stenosis. Surgeries: none to the spine - follows with nsgy Interventions/Injections: none. Interested in chiro. 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 PMH: 1) Depressive disorder 2) Sleep disorder 3) [...] rhinitis 18) Vitamin D deficiency 19) Anxiety PSHx: cholecystectomy rhinoplasty ALLERGIES: Compazine MEDICATIONS: Active Outpatient Medications (including Supplies): Active Outpatient Medications Status 1) LIDOCAINE 5% PATCH APPLY 1 PATCH TO SKIN SITE ONCE A DAY ACTIVE APPLY PATCH AND PRESS FIRMLY FOR 10-15 SECONDS. KEEP ON FOR 12 HOURS THEN REMOVE PATCH FOR 12 HOURS. Indication: FOR LOCAL ANESTHESIA PHYSICAL EXAM: VSD - Detailed Vitals Date Vital Measurement Qualifiers 10/10/2024 08:42 Pulse 79 BP 114/82 10/10/2024 07:15 Respir 16 POx (L/Min)(%) 98 Room Air 10/10/2024 05:20 Temp F (C) 98.2 (36.8) Pain 5 General: awake, alert, in NAD CV: extremities well perfused Lungs: nonlabored breathing Mood/Affect: normal SKIN: no erythema or rash Back exam Inspection: Normal Spinal alignment Palpation: Spinous process tenderness at L2-3 Mild tenderness to left lumbar PS around L2-3 Range of Motion: Flexion 45 w/pain Extension 30 w/o pain R L Facet joint loading neg neg Straight leg raise neg neg JANET Test neg neg FADIR test neg neg LE strength R L Hip flex 5/5 5/5 Knee ext 5/5 5/5 Dorsiflex 5/5 5/5 Plantarflex 5/5 5/5 Sensation: intact to LT in BLE Gait: Normal gait RADIOLOGY/DIAGNOSTICS: as above Labs reviewed ASSESSMENT/PLAN: Patient is a 34 yo M with chronic low back pain. Lumbar spondylosis Lumbar compression fracture s/p fall Chronic pain, other Pt presents today with chronic low back pain that worsened after a fall last year after which he sustained a compression fracture at L2/L3. He has been evaluated by IR and nsgy who rec conservative mgt. Pt has not had a recent course of PT for the back. Will place order for neutral to extension based therapy, HEP education with PT. As for medications, pt to trial his topical lidoderm as well as PO meloxicam 7.5 mg qday. Discussed the risks of taking NSAIDs longterm. Consider whole health pain mgt options in the future if no sig relief. Consider checking vitamin D and B12 levels. -Return to clinic: in 3-4 mo. Patient educated, agrees and understands the assessment and plan. A total of 40 minutes was spent on the date of this encounter including but not limited to face to face time with the patient, chart review, care planning with/for the patient and documentation in the medical record. Suicide Screen - V: C-SSRS Screening [place]-Suicide Severity Rating Scale (C-SSRS Screener) 1. Over the past month, have you wished you were or wished you could go to sleep and not wake up? No 2. Over the past month, have you had any actual thoughts of killing yourself? No 3. Over the past month, have you been thinking about how you might do this? Response not required due to responses to other questions. 4. Over the past month, have you had these thoughts and had some intention of acting on them? Response not required due to responses to other questions. 5. Over the past month, have you started to work out or worked out the details of how to kill yourself? Response not required due to responses to other questions. 6. If yes, at any time in the past month did you intend to carry out this plan? Response not required due to responses to other questions. 7. In your lifetime, have you ever done anything, started to do anything, or prepared to do anything to end your life (for example, collected pills, obtained a gun, gave away valuables, went to the roof but didn't jump)? No 8. If YES, was this within the past 3 months? Response not required due to responses to other questions. /cydney/ [facility] Gregg Mgmt Physician Signed: 12/24/2024 09:08 12/24/2024 ADDENDUM STATUS: COMPLETED Pt seen by endocrinology in June with recs to check vitamin D levels. Not seen under labs. Will place order. /da OSBORNE Pain Mgmt Physician Signed: 12/24/2024 09:10 [facility] OSBORNE [facility]
--- OUTSIDE RECORDS SUMMARY | 2025-01-15 07:39 | XMS_ITS | Encounter Summary ---
Author Name [facility] [place] [facility] [place] Address [address] [place] [address] Care Team Providers Care Furniture Mover Helper Name Role Phone BROOKLYN ARAGON Primary Care [...] FOCUS FAMIL Y Oct 08, 2021 132 [id number] [phone] REISING,T YLER PATIENT CAREMARK ([id number])RX PRESCRIPT ION GEHA Oct 04, 2024 [id number] [phone] REISING,T YLER PATIENT CAREMARK FEP [id number] PRESCRIPT ION FEPRX Aug 16, 2019 [id number] [phone] REISING,T YLER PATIENT GEHA PREFERRED PROVIDER ORGANIZAT ION (PPO) GEHA STAND EVELYN Oct 04, 2024 [id number] REISING,T YLER PATIENT Selected Encounter This section includes the information on record at [place] for the Encounter. Date/Time Encounter Type Encounter Description Reason Provider Source February 04, 2024 09:15 AM Outpatient Encounter ADMIN PAT ACTIVTIES (MASNONCT) DOMINGA MOSLEY Encounter Template Text not used by [place] Plan of Treatment: Future Appointments (+ 6 months) and Future Tests (+/- 45 days) The Plan of Treatment section includes future care activities for the patient from all [place] treatmentfaselect specialty hospitalities. This section includes future appointments and future orders which are active, pending or scheduled. Future Appointments This section includes appointments that were scheduled to occur 6 months from the date of the Encounter, up to a maximum of 20 appointments. The data comes from all [place] treatment facilities. Appointment Date/Time Appointment Type Appointme nt Facility Name February 05, 2024 09:00 AM AMBULATORY - PSYCHIATRY [facility] February 07, 2024 08:00 AM AMBULATORY - SURGERY [facility] Feb 27, 2024 01:00 PM AMBULATORY - MEDICINE [facility] Feb 27, 2024 03:00 PM AMBULATORY - PSYCHIATRY [facility] Feb 28, 2024 07:09 PM AMBULATORY - MEDICINE [facility] Mar 03, 2024 02:00 PM AMBULATORY - PSYCHIATRY [facility] Mar 04, 2024 11:00 AM AMBULATORY - MEDICINE [facility] Mar 13, 2024 11:00 AM AMBULATORY - PSYCHIATRY [facility] Mar 20, 2024 09:00 AM AMBULATORY - PSYCHIATRY [facility] Mar 25, 2024 04:00 PM AMBULATORY - PSYCHIATRY [facility] Mar 25, 2024 06:00 PM AMBULATORY - MEDICINE [facility] Apr 08, 2024 02:00 PM AMBULATORY - PSYCHIATRY [facility] Apr 16, 2024 03:06 AM AMBULATORY - MEDICINE [facility] Apr 16, 2024 08:30 AM AMBULATORY - SURGERY [facility] Apr 22, 2024 02:00 PM AMBULATORY - PSYCHIATRY [facility] Apr 22, 2024 03:30 PM AMBULATORY - MEDICINE [facility] Apr 27, 2024 02:45 PM AMBULATORY - SURGERY . Doug BLACKWELL [facility] May 01, 2024 11:00 AM AMBULATORY - NONE [facility] May 15, 2024 09:30 AM AMBULATORY - SURGERY [facility] Doug SASHA [facility] May 20, 2024 03:30 PM AMBULATORY - NONE [facility] Deluca [facility] Active, Pending, and Scheduled Orders This section includes a listing of several types of active, pending, and scheduled orders, including clinic medications orders, diagnostic test orders, procedure orders and consult orders; where the start date of the order is 45 days before the date of the Encounter or 45 days after the date of theEncounter. The data comes from all [facility] facilities. Test Date/Time Test Type Test Details Facility Name Jan 18, 2024 04:36 AM Laboratory - Chemistry Order CBC BLOOD STAT WC ONCE [facility] January 23, 2024 12:00 AM Laboratory - Chemistry Order LIPID PANEL (STL) GREEN LI/HEP BLD/PLAS PLASMA [facility] January 23, 2024 12:00 AM Laboratory - Chemistry Order HGA1C BLOOD [facility] January 23, 2024 12:00 AM Laboratory - Chemistry Order COMPREHENSIVE METABOLIC PANEL GREEN LI/HEP BLD/PLAS PLASMA [facility] January 23, 2024 12:00 AM Laboratory - Chemistry Order VITAMIN D, 25-HYDROXY GOLD/RED SST SERUM [facility] January 23, 2024 12:00 AM Laboratory - Chemistry Order B12 GOLD/RED SST SERUM [facility] January 23, 2024 12:00 AM Laboratory - Chemistry Order TSH (MA-PB) GOLD/RED SST [facility] Mar 06, 2024 12:00 AM Laboratory - Chemistry Order CBC (DIFF&PLT) BLOOD [facility] Mar 06, 2024 12:00 AM Laboratory - Chemistry Order COMPREHENSIVE METABOLIC PANEL BLOOD [facility] Mar 06, 2024 12:00 AM Laboratory - Chemistry Order URINALYSIS URINE [facility] Mar 06, 2024 12:00 AM Laboratory - Chemistry Order LIPID PANEL BLOOD [facility] Mar 06, 2024 12:00 AM Laboratory - Chemistry Order TSH-G,LC,J,T BLOOD [facility] Mar 06, 2024 12:00 AM Laboratory - Chemistry Order HEMOGLOBIN %A1C PROFILE BLOOD [facility] Mar 06, 2024 12:00 AM Laboratory - Chemistry Order MICROALBUMINURIA(IVONNE) URINE SP [facility] Lab Results: +/- 30 days of the encounter This section includes the Chemistry and Hematology Lab Results on record with [place] for the patient. Radiology Reports and Pathology Reports are provided separately, in subsequent sections. Lab Results This section contains the Chemistry/Hematology Results that were resulted 30 days before or 30 daysafter the date of the Encounter. Date/Time Source Result Type Result - Unit Interpretation Reference Range Specimen Type Comment Mar 01, 2024 09:06 PM [facility] HGA1C BLOOD Specimen Type: BLOOD No comment entered. Ordering Provider: ROYA CARTAGENA Report Released Date/Time: Feb 24, 2024 04:42 PM Reporting Lab: [facility] [address] [place] [phone] Performing Lab: [address] [address] HGA1C 5.3 4.0-6.0 Mar 01, 2024 09:06 PM [facility] LIPID PANEL (STL) PLASMA Specimen Type: PLASM A Comment: No hemolysis noted. Ordering Provider: ROYA CARTAGENA Report Released Date/Time: Feb 24, 2024 04:42 PM Reporting Lab: [facility] [address] [place] [phone] Performing Lab: [facility] [address] [place] [phone] CHOLESTEROL 174 mg/dL 0-200 TRIGLYCERIDE 220 mg/dL H 0-150 CALCULATED LDL 98 mg/dL HDL(New) 32 mg/dL L >40 Mar 01, 2024 09:06 PM [facility] COMPREHENSIVE METABOLIC PANEL PLASMA Specimen Type: PLASMA Comment: No hemolysis noted. Ordering Provider: ROYA CARTAGENA Report Released Date/Time: Feb 24, 2024 04:42 PM Reporting Lab: [facility] [address] [facility] [phone] Performing Lab: [address] [address] CREATININE 1.33 mg/dL H 0.7-1.3 UREA NITROGEN [...] 71.9 >60 Mar 01, 2024 09:06 PM [facility] URINALYSIS (STL-PB) URINE Specimen Type: URIN E No comment entered. Ordering Provider: ROYA CARTAGENA Report Released Date/Time: Feb 24, 2024 04:42 PM Reporting Lab: [address] [phone] Performing Lab: [address] [address] URINE COLOR Light-Yellow Yellow U.BILIRUBIN Negative mg/dL [...] 1.025 1.005-1.029 Mar 01, 2024 09:06 PM [facility] CBC BLOOD Specimen Type: BLOOD No comment entered. Ordering Provider: ROYA CARTAGENA Report Released Date/Time: Feb 24, 2024 04:42 PM Reporting Lab: [address] [phone] Performing Lab: [address] [address] WBC 7.7 10*3/uL 3.6-11.2 RBC 5.34 10*6/uL [...] 0.00-0. 20 Jan 18, 2024 04:22 AM [facility] COVID-19 DIAGNOSTIC (FLU/RSV)(STL) NASOPHARYNX Spec imen Type: [...] Jan 18, 2024 04:23 AM Reporting Lab: [facility] [address] [facility] [phone] Performing Lab: [address] [address] INFLUENZA A Negative Negative INFLUENZA B Negative Negative COVID-19 (STL-PB) Not Detected Not Detec braden RSV (Cepheid) NEGATIVE Negative Jan 18, 2024 04:22 AM [facility] COMPREHENSIVE METABOLIC PANEL PLASMA Specimen Type: PLASMA Comment: Aspartate Transaminase result may show positive bias due to hemolysis. K result canceled due to hemolysis. Specimen moderately hemolyzed. K Cancelled due to moderate hemolysis. NOTIFIED VIRGEN OLIVAS RN @ 0520 ON 01/18/24 BY [facility] Ordering Provider: ADINA WALTON Report Released Date/Time: Jan 18, 2024 04:23 AM Reporting Lab: [address] [phone] Performing Lab: [address] [address] CREATININE 1.43 mg/dL H 0.7-1.3 UREA NITROGEN [...] 65.9 >60 Jan 18, 2024 04:22 AM [facility] CBC BLOOD Specimen Type: BLOOD No comment entered. Ordering Provider: ADINA WALTON Report Released Date/Time: Jan 18, 2024 04:23 AM Reporting Lab: [address] [phone] Performing Lab: [address] [phone] WBC 8.4 10*3/uL 3.6-11.2 RBC 5.61 10*6/uL [...] 0.00-0. 20 Jan 18, 2024 04:22 AM [facility] LIPASE PLASMA Specimen Type: PLASM A Comment: *COMPREHENSIVE METABOLIC PANEL Not Performed: Jan 18, 2024@05:09 by *ORE GRADER Reason: DUPLICATE SPECIMEN ORDER. SEE ORDER [id number] Aspartate Transaminase result may show positive bias due to hemolysis. K result canceled due to hemolysis. Specimen moderately hemolyzed. Ordering Provider: ADINA WALTON Report Released Date/Time: Jan 18, 2024 04:36 AM Reporting Lab: [facility] [address] [facility] [phone] Performing Lab: [facility] [address] [facility] [phone] LIPASE 34 U/L 8-78 Jan 18, 2024 04:22 AM [facility] GGT GAMMA-GT PLASMA Specimen Type: PLASM A Comment: *COMPREHENSIVE METABOLIC PANEL Not Performed: Jan 18, 2024@05:09 by *ORE GRADER Reason: DUPLICATE SPECIMEN ORDER. SEE ORDER [id number] Aspartate Transaminase result may show positive bias due to hemolysis. K result canceled due to hemolysis. Specimen moderately hemolyzed. Ordering Provider: ADINA WALTON Report Released Date/Time: Jan 18, 2024 04:36 AM Reporting Lab: [facility] [address] [facility] [phone] Performing Lab: [facility] [address] [facility] [phone] GGT GAMMA-GT 99 [IU]/L H 12-64 Social History: Smoking Status (Most current) and Tobacco Use (All prior to encounter date) This section includes the most current, and the historical, smoking and tobacco- related health factors from the [place] facility where the Encounter took place. Current Smoking Status This section includes the most current smoking, or tobacco-related health factor, from the [place] facility where the Encounter took place. Date/Time Current Smoking Status Comment Shameka ity Jan 08, 2024 04:16 PM VA-TOBACCO FORMER USER [facility] Tobacco Use History This section includes a history of the smoking, or tobacco-related health factors, that were collected on or before the date of the Encounter. The data comes from the [place] facility where the Encounter took place. Date/Time Smoking Status/Tobacco Use Comment F acility Jan 08, 2024 04:16 PM VA-TOBACCO QUIT 15 YRS OR MORE [facility] Dec 18, 2023 09:41 AM VA-TOBACCO FORMER USER [facility] Dec 18, 2023 09:41 AM VA-TOBACCO QUIT 1 TO < 5 YRS [facility] Advance Directives: All historical and current Section Date Range: From patient's date of to the date document was created. This section includes ALL of a patient's completed or amended [place] Advance and Rescinded Directives. The entries below indicate that a directive exists for the patient, but an actual copy is not included with this document. The data comes from all [facility]. Date Advance Directives Provider Source Aug 28, 2023 ADVANCE DIRECTIVE NO TIFICATION AND SCREENING SYLWIA SANTIAGO [facility] May 14, 2023 ADVANCE DIRECTIVE NO TIFICATION AND SCREENING SYLWIA SANTIAGO [facility] Encounter Notes: All associated encounter notes This section contains the clinical notes associated to the Encounter. Date/Time Encounter Note(s) Provider Source February 04, 2024 09:15 AM ANESTHESIOLOGY JEREMY WSHEET: LOCAL TITLE: NINA INTRA-OP FLOWSHEET [facility] STANDARD TITLE: ANESTHESIOLOGY FLOWSHEET DATE OF NOTE: FEBRUARY 04, 2024@09:15 ENTRY DATE: FEBRUARY 04, 2024@09:15:39 AUTHOR: DOMINGA MOSLEY EXP COSIGNER: URGENCY: STATUS: COMPLETED Patient: MERLE LAFLEUR SSN: [id number] Date of Operation: 02/04/2024 Surgery Start Time: Surgery End Time: Anesthesia Care Start: 02/04/2024 9:00 Anesthesia Care End: 02/04/2024 9:13 Anesthesia Method: - Monitored 02/04/2024 9:02 (Primary), Level Of Consciousness: Sedated, Monitors Applied, Oxygen Therapy: Mask, EtCO2 Verified: Waveform Positioning: Pressure Points Padded & Checked, Eyes, Ears And Nose Free Of Pressure ASA Number: 2 Procedure: EGD Diagnosis: GERD Holding, Anesthesia, PACU Drugs: --------- Lidocaine: 100 mg Propofol: 120 mg Propofol gtt: 178.218 mg DexmedeTOMidine: 8 mcg Holding, Anesthesia, PACU Fluids: Normal Saline: 200 ml Resources: Headrest - Pillow Staff: --------- DOMINGA MOSLEY PRIN. ANES. YUAN, HUI, ANES. SUPER. Procedure Date: 02/04/2024 Procedure Start Time: 02/04/2024 9:05 Procedure End Time: 02/04/2024 9:10 /cydney/ DOMINGA MOSLEY CERTIFIED REGISTERED NURSE WATCH AND CLOCK MAKER AND REPAIRER Signed: 02/04/2024 09:15 DOMINGA MOSLEY [facility]
--- OUTSIDE RECORDS SUMMARY | 2025-01-15 07:39 | XMS_ITS ---
Author Name [facility] [facility] [place] [facility] [place] [facility] [place] Address [address] [place] [address] Care Team Providers Care Head Tennis Professional Name Role Phone BROOKLYN ARAGON Primary Care [...] FOCUS FAMIL Y Oct 08, [phone] [id number] [phone] REISING,T YLER PATIENT CAREMARK ([id number])RX PRESCRIPT ION GEHA Oct 04, 2024 [id number] [phone] REISING,T YLER PATIENT CAREMARK FEP [id number] PRESCRIPT ION FEPRX Aug 16, 2019 [id number] [phone] REISING,T YLER PATIENT GEHA PREFERRED PROVIDER ORGANIZAT ION (PPO) GEHA STAND EVELYN Oct 04, 2024 [id number] [phone] REISING,T YLER PATIENT Selected Encounter This section includes the information on record at [place] for the Encounter. Date/Time Encounter Type Encounter Description Reason Provider Source February 07, 2024 08:00 AM OFFICE O/P NEW MOD 45 MIN GENERAL SURGERY ICD-10-CM K80.80 Other cholelithiasis without obstruction TODD BRANNON [facility] Encounter Template Text not used by [place] Assessments - Encounter Diagnoses This section includes the primary and secondary diagnoses documented for the Encounter. Date/Time Primary/Secondary Diagnosis Diagnosis Name Provider Source February 13, 2024 02:02 PM PRIMARY Other cholelithiasis without obstruction TODD BRANNON [facility] Plan of Treatment: Future Appointments (+ 6 months) and Future Tests (+/- 45 days) The Plan of Treatment section includes future care activities for the patient [facility] [place] [facility] This section includes future appointments and future orders which are active, pending or scheduled. Future Appointments This section includes appointments that were scheduled to occur 6 months from the date of the Encounter, up to a maximum of 20 appointments. The data comes from all [place] treatment facilities. Appointment Date/Time Appointment Type Appointme nt Facility Name Feb 27, 2024 01:00 PM AMBULATORY - MEDICINE [facility] Feb 27, 2024 03:00 PM [facility] Feb 28, 2024 07:09 PM AMBULATORY - MEDICINE [facility] Mar 03, 2024 02:00 PM AMB[facility] - [facility] Mar 04, 2024 11:00 AM AMBULATORY - MEDICINE [facility] Mar 13, 2024 11:00 AM [facility] Mar 20, 2024 09:00 AM [facility] Mar 25, 2024 04:00 PM [facility] Mar 25, 2024 06:00 PM [facility] Apr 08, 2024 02:00 PM [facility] Apr 16, 2024 03:06 AM AMBULATORY - MEDICINE [facility] Apr 16, 2024 08:30 AM [facility] Apr 22, 2024 02:00 PM [facility] Apr 22, 2024 03:30 PM AMBULATORY - MEDICINE [facility] Apr 27, 2024 02:45 PM AMBULATORY - SURGERY . Doug [facility] May 01, 2024 11:00 AM AMBULATORY - NONE [facility] May 15, 2024 09:30 AM AMBULATORY - SURGERY [facility] Doug [facility] May 20, 2024 03:30 PM AMBULATORY - NONE [facility] May 28, 2024 02:00 PM AMBULATORY - PS[facility]CHIATRY [facility] Jun 03, 2024 11:30 AM AMBULATORY - SURGERY [facility] Active, Pending, and Scheduled Orders This section includes a listing of several types of active, pending, and scheduled orders, including clinic medications orders, diagnostic test orders, procedure orders and consult orders; where the start date of the order is 45 days before the date of the Encounter or 45 days after the date of theEncounter. The data comes from all [facility] facilities. Test Date/Time Test Type Test Details Facility Name Jan 18, 2024 04:36 AM Laboratory - Chemistry Order CBC BLOOD STAT WC ONCE [facility] January 23, 2024 12:00 AM Laboratory - Chemistry Order HGA1C BLOOD SP [facility] January 23, 2024 12:00 AM Laboratory - Chemistry Order LIPID PANEL (STL) GREEN LI/HEP BLD/PLAS PLASMA [facility] January 23, 2024 12:00 AM Laboratory - Chemistry Order COMPREHENSIVE METABOLIC PANEL GREEN LI/HEP BLD/PLAS PLASMA [facility] January 23, 2024 12:00 AM Laboratory - Chemistry Order VITAMIN D, 25-HYDROXY GOLD/RED SST SERUM SP [facility] January 23, 2024 12:00 AM Laboratory - Chemistry Order B12 GOLD/RED SST SERUM [facility] January 23, 2024 12:00 AM Laboratory - Chemistry Order TSH (MA-PB) GOLD/RED SST SERUM [facility] Mar 06, 2024 12:00 AM Laboratory - Chemistry Order CBC (DIFF&PLT) BLOOD [facility] Mar 06, 2024 12:00 AM Laboratory - Chemistry Order COMPREHENSIVE METABOLIC PANEL BLOOD PLASMA SP [facility] Mar 06, 2024 12:00 AM Laboratory - Chemistry Order URINALYSIS URINE SP [facility] Mar 06, 2024 12:00 AM Laboratory - Chemistry Order LIPID PANEL BLOOD PLASMA SP [facility] Mar 06, 2024 12:00 AM Laboratory - Chemistry Order TSH-G,LC,J,T BLOOD PLASMA SP [facility] Mar 06, 2024 12:00 AM Laboratory - Chemistry Order HEMOGLOBIN %A1C PROFILE BLOOD SP [facility] Mar 06, 2024 12:00 AM Laboratory - Chemistry Order MICROALBUMINURIA(IVONNE) URINE SP [facility] Lab Results: +/- 30 days of the encounter This section includes the Chemistry and Hematology Lab Results on record with [place] for the patient. Radiology Reports and Pathology Reports are provided separately, in subsequent sections. Lab Results This section contains the Chemistry/Hematology Results that were resulted 30 days before or 30 daysafter the date of the Encounter. Date/Time Source Result Type Result - Unit Interpretation Reference Range Specimen Type Comment Mar 01, 2024 09:06 PM [facility] HGA1C BLOOD Specimen Type: BLOOD No comment entered. Ordering Provider: ROYA CARTAGENA Report Released Date/Time: Feb 24, 2024 04:42 PM Reporting Lab: [facility] [address] [facility] [address] Performing Lab: [facility] [address] [facility] [address] HGA1C 5.3 4.0-6.0 Mar 01, 2024 09:06 PM [facility] LIPID PANEL (STL) PLASMA Specimen Type: PLASM A Comment: No hemolysis noted. Ordering Provider: ROYA CARTAGENA Report Released Date/Time: Feb 24, 2024 04:42 PM Reporting Lab: [facility] [address] [facility] [address] Performing Lab: [facility] [address] [facility] [address] CHOLESTEROL 174 mg/dL 0-200 TRIGLYCERIDE 220 mg/dL H 0-150 CALCULATED LDL 98 mg/dL HDL(New) 32 mg/dL L >40 Mar 01, 2024 09:06 PM [facility] COMPREHENSIVE METABOLIC PANEL PLASMA Specimen Type: PLASMA Comment: No hemolysis noted. Ordering Provider: ROYA CARTAGENA Report Released Date/Time: Feb 24, 2024 04:42 PM Reporting Lab: [address] [address] Performing Lab: [address] [address] CREATININE 1.33 mg/dL H 0.7-1.3 UREA NITROGEN [...] 71.9 >60 Mar 01, 2024 09:06 PM [facility] URINALYSIS (STL-PB) URINE Specimen Type: URIN E No comment entered. Ordering Provider: ROYA CARTAGENA Report Released Date/Time: Feb 24, 2024 04:42 PM Reporting Lab: [address] [address] Performing Lab: [address] [address] URINE COLOR Light-Yellow Yellow U.BILIRUBIN Negative mg/dL [...] 1.025 1.005-1.029 Mar 01, 2024 09:06 PM [facility] CBC BLOOD Specimen Type: BLOOD No comment entered. Ordering Provider: ROYA CARTAGENA Report Released Date/Time: Feb 24, 2024 04:42 PM Reporting Lab: [facility] [address] [facility] [facility] [address] Performing Lab: [address] [address] WBC 7.7 10*3/uL 3.6-11.2 RBC 5.34 10*6/uL [...] 0.00-0. 20 Jan 18, 2024 04:22 AM [facility] COVID-19 DIAGNOSTIC (FLU/RSV)(STL) NASOPHARYNX Spec imen Type: [...] Jan 18, 2024 04:23 AM Reporting Lab: [facility] [address] [facility] [facility] [address] Performing Lab: [address] [address] INFLUENZA A Negative Negative INFLUENZA B Negative Negative COVID-19 (STL-PB) Not Detected Not Detec braden RSV (Cepheid) NEGATIVE Negative Jan 18, 2024 04:22 AM [facility] COMPREHENSIVE METABOLIC PANEL PLASMA Specimen Type: PLASMA Comment: Aspartate Transaminase result may show positive bias due to hemolysis. K result canceled due to hemolysis. Specimen moderately hemolyzed. K Cancelled due to moderate hemolysis. NOTIFIED VIRGEN OLIVAS RN @ [id number] ON 01/18/24 BY [facility] Ordering Provider: ADINA WALTON Report Released Date/Time: Jan 18, 2024 04:23 AM Reporting Lab: [facility] [address] [facility] [address] Performing Lab: [address] [address] CREATININE 1.43 mg/dL H 0.7-1.3 UREA NITROGEN [...] 65.9 >60 Jan 18, 2024 04:22 AM [facility] CBC BLOOD Specimen Type: BLOOD No comment entered. Ordering Provider: ADINA WALTON Report Released Date/Time: Jan 18, 2024 04:23 AM Reporting Lab: [facility] [address] [facility] [address] Performing Lab: [facility] [address] [facility] [address] WBC 8.4 10*3/uL 3.6-11.2 RBC 5.61 10*6/uL [...] 0.00-0. 20 Jan 18, 2024 04:22 AM [facility] LIPASE PLASMA Specimen Type: PLASM A Comment: *COMPREHENSIVE METABOLIC PANEL Not Performed: Jan 18, 2024@05:09 by *RETAIL ASSET PROTECTION SPECIALIST Reason: DUPLICATE SPECIMEN ORDER. SEE ORDER [id number] Aspartate Transaminase result may show positive bias due to hemolysis. K result canceled due to hemolysis. Specimen moderately hemolyzed. Ordering Provider: ADINA WALTON Report Released Date/Time: Jan 18, 2024 04:36 AM Reporting Lab: [facility] [address] [facility] [address] Performing Lab: [facility] [address] [facility] [address] LIPASE 34 U/L 8-78 Jan 18, 2024 04:22 AM [facility] GGT GAMMA-GT PLASMA Specimen Type: PLASM A Comment: *COMPREHENSIVE METABOLIC PANEL Not Performed: Jan 18, 2024@05:09 by *RETAIL ASSET PROTECTION SPECIALIST Reason: DUPLICATE SPECIMEN ORDER. SEE ORDER [id number] Aspartate Transaminase result may show positive bias due to hemolysis. K result canceled due to hemolysis. Specimen moderately hemolyzed. Ordering Provider: ADINA WALTON Report Released Date/Time: Jan 18, 2024 04:36 AM Reporting Lab: [facility] [address] [facility] [address] Performing Lab: [facility] [address] [facility] [address] GGT GAMMA-GT 99 [IU]/L H 12-64 Vital Signs: All taken on the encounter date This section contains inpatient and outpatient Vital Signs collected on the date of the Encounter. Date/Time Temperature Pulse Blood Pressure Respiratory Rate SP02 Pain Height Weight Body Mass Index Source February 07, 2024 07:56 AM 97.3 76 113/79 [address] [facility] Social History: Smoking Status (Most current) and Tobacco Use (All prior to encounter date) This section includes the most current, and the historical, smoking and tobacco- related health factors from the [place] facility where the Encounter took place. Current Smoking Status This section includes the most current smoking, or tobacco-related health factor, from the [place] facility where the Encounter took place. Date/Time Current Smoking Status Comment Shameka ity Jan 08, 2024 04:16 PM VA-TOBACCO FORMER USER [facility] Tobacco Use History This section includes a history of the smoking, or tobacco-related health factors, that were collected on or before the date of the Encounter. The data comes from the [place] facility where the Encounter took place. Date/Time Smoking Status/Tobacco Use Comment F acility Jan 08, 2024 04:16 PM VA-TOBACCO QUIT 15 YRS OR MORE [facility] Dec 18, 2023 09:41 AM VA-TOBACCO FORMER USER [facility] Dec 18, 2023 09:41 AM VA-TOBACCO QUIT 1 TO < 5 YRS [facility] Advance Directives: All historical and current Section Date Range: From patient's date of to the date document was created. This section includes ALL of a patient's completed or amended [place] Advance and Rescinded Directives. The entries below indicate that a directive exists for the patient, but an actual copy is not included with this document. The data comes from all [place] facilities. Date Advance Directives Provider Source Aug 28, 2023 ADVANCE DIRECTIVE NO TIFICATION AND SCREENING SYLWIA SANTIAGO [facility] May 14, 2023 ADVANCE DIRECTIVE NO TIFICATION AND SCREENING SYLWIA SANTIAGO [facility] Encounter Notes: All associated encounter notes This section contains the clinical notes associated to the Encounter. Date/Time Encounter Note(s) Provider Source Apr 27, 2024 11:59 AM SURGERY ATTENDING NOTE: LOCAL TITLE: ATTENDING GENERAL SURGERY I NOTE ST STANDARD TITLE: SURGERY ATTENDING NOTE DATE OF NOTE: APR 27, 2024@11:59 ENTRY DATE: APR 27, 2024@11:59:46 AUTHOR: TODD BRANNON EXP COSIGNER: URGENCY: STATUS: COMPLETED Reviewed pathology. Negative for malignancy. Report ---- SURGICAL PATHOLOGY ---- - - - - - - - [...] - - - - - - - Submitted by: JASWINDER ASH Date obtained: Apr [...] intractable billiary colic Surgeon/physician: TIFFANY ARNETT III =-=-=-=-=-=-=-=-=-=-=-=-=-= -=-=-=-=-=-=-=-=-=-=-=-=-=- =-=-=-=-=-=-=-=-=-=-=-= -= - - - - - - - [...] seen, and no masses are grossly identified. Ticket Clerk sections of the wall from the body [...] Performing Laboratory: Surgical Pathology Report Performed By: [facility] [address] [facility]# [id number] [address] [facility] [address] [place] [address] - - - - - - - [...] - - MERLE LAFLEUR STANDARD FORM 515 ID:[id number] SEX:M :1990 AGE: 34 LOC:APE PCP: Jaswinder Villafuerte MD Facility: [facility] == /es/ TODD BRANNON MD Staff Physician, General Surgery I Signed: 04/27/2024 12:[address] [facility] February 10, 2024 03:51 PM SURGERY NOTE: LOCAL TITLE: GENERAL SURGERY NOTE ST[facility] STANDARD TITLE: SURGERY NOTE DATE OF NOTE: FEBRUARY 10, 2024@15:51 ENTRY DATE: FEBRUARY 10, 2024@15:51:40 AUTHOR: DAVID LIRA EXP COSIGNER: URGENCY: STATUS: COMPLETED GENERAL SURGERY NOTE STL Has ADDENDA If a patient should call inquiring about this procedure or to cancel, please dial extension [phone]. You can also send a teams message to Elizabeth Perez or Sheri Brannon. It is important that direct communication be made with a member of the surgery team. Please do not simply leave a message in the chart. Procedure:laporoscpe cholecystectomy w/possible IOC Pt. agreeable to this surgical date: 03-19-24 arriving 09:30 to AE Will likely be discharged the same day and will need drivers' cash clerk to go home after surgery. Pt. verbalized understanding NPO after midnight before surgery. Patient voiced understanding that should they fail to comply with these instructions their case will be cancelled and may not be rescheduled for several weeks. Take ususal morning medications the day of surgery with sips of water/no coffee. Patient instructed to hold the following medications none Do not bring your medications. Any medications you need will be provided for you. Bring your inhalers(use morning of surgery) and CPAP machine, if you use them. Preoperative printout bathing instruction reviewed and given to patient. Chlorhexidine preoperative liquid soap has been ordered and will be mailed via pharmacy. Take shower with preoperative liquid soap the night before surgery and the morning of surgery. Preop letter included the above information given to pt during clinic visit Pt. verbalized all understanding of the above information. Pt. encouraged to call surgical dept for further questions or concerns. Surgical dept extension is included within the preop letter. Pt. made aware anesthesia consult will be submitted. /cydney/ DAVID LIRA ADVANCE MEDICAL SUPPORT ASSTISANT Signed: 02/10/2024 15:54 Receipt Acknowledged By: 02/11/2024 19:33 /cydney/ TODD BRANNON MD Staff Physician, General Surgery I 02/28/2024 ADDENDUM STATUS: COMPLETED sent letter to vet to confirm appt. /da LIRA ADVANCE MEDICAL SUPPORT ASSTISANT Signed: 02/28/2024 11:01 03/17/2024 ADDENDUM STATUS: COMPLETED Patient called surgery office to cancel surgery on 03/19/24 due to family emergency. We will call back within a few days with new surgery date. /cydney/ Sheri Brannon PA-C General Surgery Physician Vendor Analyst Signed: 03/17/2024 09:36 04/01/2024 ADDENDUM STATUS: COMPLETED Called patient to see if he was still interested in surgery and offered date 04/17. Patient stated he just broke 2 vertebrea in his back and is seeing neurosurgery soon for potential surgery. Patient stated he wants to get his back fixed first. Advised patient will send him a contact letter and he can call use when he is ready for surgery. Patient verbalized understanding. /cydney/ WILLARD COSTA RN, BSN REGISTERED NURSE Signed: 04/01/2024 10:[address] [facility] February 07, 2024 10:20 AM SURGERY CONSULT: LOCAL TITLE: GENERAL SURGERY I CONSULT ST STANDARD TITLE: SURGERY CONSULT DATE OF NOTE: FEBRUARY 07, 2024@10:20 ENTRY DATE: FEBRUARY 07, 2024@10:20:51 AUTHOR: TODD BRANNON EXP COSIGNER: URGENCY: STATUS: COMPLETED I have personally assessed the patient, reviewed the medical record and diagnostic studies, and agree with the residents assessment and plan. Patient is a 33 year old male. Overall presentaiton is consistent with symptomatic cholelithiasis. We have have recommended gallbladder surgery. I reviewed the indications, risks, and alternatives of surgery in detail with the patient. /cydney/ TODD BRANNON MD Staff Physician, General Surgery I Signed: 02/07/2024 10:[address] [facility] February 07, 2024 08:50 AM SURGERY NOTE: LOCAL TITLE: GENERAL SURGERY NOTE ST [facility]ANDARD TITLE: SURGERY NOTE DATE OF NOTE: FEBRUARY 07, 2024@08:50 ENTRY DATE: FEBRUARY 07, 2024@08:51:18 AUTHOR: BOB CANCHOLA EXP COSIGNER: TODD BRANNON URGENCY: STATUS: COMPLETED GENERAL SURGERY NOTE ST Has ADDENDA GENERAL SURGERY I CLINIC VISIT CHIEF COMPLAINT: Epigastric Pain HISTORY OF PRESENT ILLNESS: 33-year-old man with PMH of depression, anxiety, MARY, GERD, MSK pain, migraines, TBI, referred by GI for eval for lap ying. He has had ~weekly, severe upper abd pain that lasts hours to days over the last 2 years with associated n/v, which has led to many presentations to the ED, most recently on (01/18/24). 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 He had a CT last year which was overall unremarkable for etiology for pain. No prior abdominal surgeries. He had an U/S at another [place], which showed cholelithiasis in (10/2023), and HIDA that was read as normal. GI reports that he has been on prilosec and famotidine which didn't help, and that he has had intermittently elevated LFTs. EGD was done on (02/04/24). Findings of this were: erythematous duodenopathy, gastritis, small hiatal hernia, LA Grade A esophagitis with no bleeding; no specimens were collected. PAST MEDICAL HISTORY: 1) Depressive disorder 2) [...] rhinitis 18) Vitamin D deficiency 19) Anxiety PAST SURGICAL HISTORY: MEDICATIONS: Active Outpatient Medications (excluding Supplies): Issue Date Status Last Fill Active Outpatient Medications Refills Expiration 1) BUPROPION HCL 150MG 24HR SA TAB Qty: 90 ACTIVE Issu:01-23-24 for 90 days Sig: TAKE ONE TABLET BY Refills: 0 Last:01-24-24 MOUTH EVERY MORNING FOR DEPRESSION Expr:04-22-24 SWALLOW WHOLE - DO NOT CRUSH OR CHEW. 2) OMEPRAZOLE 40MG EC CAP Qty: 90 for 90 ACTIVE Issu:02-04-24 days Sig: TAKE ONE CAPSULE BY MOUTH Refills: 0 Last:02-05-24 EVERY MORNING BEFORE A MEAL FOR ACID Expr:05-04-24 REFLUX. TAKE 30 MINUTES PRIOR TO FOOD. 3) ONDANSETRON 4MG ORAL DISINTEGRATING TAB ACTIVE Issu:03-14-23 Qty: 60 for 30 days Sig: TAKE ONE Refills: 0 Last:01-26-24 TABLET UNDER THE TONGUE EVERY EIGHT(8) Expr:03-14-24 HOURS NEEDED FOR NAUSEA/VOMITING Issue Date Status Last Fill Pending Outpatient Medications Refills Expiration 1) CHLORHEXIDINE GLUCONATE 4% TOP LIQUID PENDING Qty: 120 Sig: APPLY MODERATE AMOUNT Refills: 0 TO AFFECTED AREA(S) DIRECTED (TOPICAL USE ONLY) AVOID CONTACT WITH EYES. 4 Total Medications ALLERGIES: Patient has answered NKA ROS: Review of systems as per HPI PHYSICAL EXAM: Date Vital Measurement Qualifiers 02/07/2024 07:56 Temp F (C) 97.3 (36.3) Pulse 76 Respir 18 BP 113/79 Ht in (cm) 73 (185.42) Wt lbs (kg)[BMI] 249.8 (113.31)[33*] Pain 2 POx (L/Min)(%) 96 General No acute distress, well-nourished, appropriate HEENT Moist mucous membranes, no lesion or exudate Neck - Supple, no thyromegaly Lung- Symmetric chest rise and fall, unlabored breathing on room air Abd - soft, non-distended, mild tenderness in epigastrium/RUQ Ext - no edema, no cyanosis Skin - no rashes, nodules, or jaundice LABS: WBC 8.4 10*3/uL 01/18/2024 04:22 RBC 5.61 10*6/uL 01/18/2024 04:22 HGB 16.1 g/dL 01/18/2024 04:22 HCT 47.9 % 01/18/2024 04:22 MCV 85.4 fL 01/18/2024 04:22 MCH 28.7 pg 01/18/2024 04:22 MCHC 33.6 g/dL 01/18/2024 04:22 RDW 13.2 % 01/18/2024 04:22 PLT 215 10*3/uL 01/18/2024 04:22 MPV 9.9 fL 01/18/2024 04:22 NEUTROPHILS, AUTO % 61 % 01/18/2024 04:22 LYMPHOCYTES, AUTO % 27 % 01/18/2024 04:22 MONOCYTES, AUTO % 7 % 01/18/2024 04:22 EOSINOPHILS, AUTO % 5 % 01/18/2024 04:22 BASOPHILS, AUTO % 1 % 01/18/2024 04:22 IMMATURE GRANS, AUTO % 0.5 % 03/02/2022 12:18 NEUTROPHILS, ABSOLUTE 5.09 10*3/uL 01/18/2024 04:22 LYMPHOCYTES, ABSOLUTE 2.25 10*3/uL 01/18/2024 04:22 MONOCYTES, ABSOLUTE 0.60 10*3/uL 01/18/2024 04:22 EOSINOPHILS, ABSOLUTE 0.40 10*3/uL 01/18/2024 04:22 BASOPHILS, ABSOLUTE 0.07 10*3/uL 01/18/2024 04:22 IMMATURE GRANS, AUTO ABS 0.04 10*3/uL 03/02/2022 12:18 SODIUM 143 mEq/L 01/18/2024 04:22 POTASSIUM 3.9 mEq/L 03/11/2023 18:18 CHLORIDE 104 mEq/L 01/18/2024 04:22 UREA NITROGEN 12.9 mg/dL 01/18/2024 04:22 CREATININE 1.43 H mg/dL 01/18/2024 04:22 CALCIUM 10.1 mg/dL 01/18/2024 04:22 PROTEIN 7.5 g/dL 01/18/2024 04:22 ALBUMIN 4.3 g/dL 01/18/2024 04:22 ALKALINE PHOSPHATASE 90 U/L 01/18/2024 04:22 ALT/SGPT 37 U/L 01/18/2024 04:22 AST/SGOT 62 H U/L 01/18/2024 04:22 TOTAL BILIRUBIN 0.9 mg/dL 01/18/2024 04:22 CARBON DIOXIDE 30 mEq/L 01/18/2024 04:22 GLUCOSE 106 H mg/dL 01/18/2024 04:22 EGFR (CKD-EPI 2020) 65.9 01/18/2024 04:22 No INR EO data found IMAGING: Impression for CT ABDOMEN AND PELVIS W/O CONTRAST, 02/04/23, case 106 No acute abnormality in the abdomen or pelvis. READING PHYSICIAN: Seven Recio MD -[id number] 02/04/2023 2:22 PDT [facility] National Teleradiology Program [phone] (For Medical Practitioner Use Only) Attention Patients / Veterans: If you have questions or concerns about these test results, please contact your ordering provider or primary care team. ASSESSMENT/PLAN: 33-year-old man with PMH of depression, anxiety, MARY, GERD, MSK pain, migraines, TBI, referred by GI for eval for lap ying, with both a history consistent with possible biliary colic and US evidence of cholelithiasis. - Scheduled for lap ying on 03/19/24 at 11:30 AM - Pre-op EKG ordered FUTURE APPOINTMENTS: 02/19/2024 09:00 [facility]-PHONE PCMHI CM LENNY 02/19/2024 13:00 [facility]-CARDIOLOGY STRESS 02/27/2024 15:00 [facility]-BH MHC IND BORN SW 03/05/2024 09:30 CARLOS-PACT PHONE E4 PCP 1 04/16/2024 14:00 [facility]- CHIRO CONSULT 8TH F 08/25/2024 10:30 CARLOS-PACT E4 PCP /cydney/ oBb [place] [employer] Medical Student Signed: 02/07/2024 08:59 /cydnye/ TODD BRANNON MD Staff Physician, General Surgery I Cosigned: 02/07/2024 10:19 02/07/2024 ADDENDUM STATUS: COMPLETED I have personally assessed the patient, reviewed the medical record and diagnostic studies, and agree with the residents assessment and plan. Overall presentaiton is consistent with symptomatic cholelithiasis. We have have recommended gallbladder surgery. Todd Brannon MD, MHS, FACS /cydney/ TODD BRANNON MD Staff Physician, General Surgery I Signed: 02/07/2024 10:20 BOB [facility]
--- OUTSIDE RECORDS SUMMARY | 2025-01-15 07:39 | XMS_ITS ---
Author Name [facility] Address [address] [place] [address] Care Team Providers Care Hog Scraper Name Role Phone BROOKLYN ARAGON Primary Care [...] FOCUS FAMIL Y Oct 08, 2021 132 [id number] [phone] REISING,T YLER PATIENT CAREMARK ([id number])RX PRESCRIPT ION GEHA Oct 04, 2024 [id number] [phone] REISING,T YLER PATIENT CAREMARK FEP [id number] PRESCRIPT ION FEPRX Aug 16, 2019 [id number] [phone] REISING,T YLER PATIENT GEHA PREFERRED PROVIDER ORGANIZAT ION (PPO) GEHA STAND EVELYN Oct 04, 2024 [id number] [phone] REISING,T YLER PATIENT Selected Encounter This section includes the information on record at [place] for the Encounter. Date/Time Encounter Type Encounter Description Reason Pro vider Source Apr 16, 2024 03:36 PM Robotic Assisted Procedure of Trunk, Perc Endo Approach HOSPITALIZATION ICD-10-CM M79.18 Myalgia, other site SD ASH Encounter Template Text not used by [place] Assessments - Encounter Diagnoses This section includes the primary and secondary diagnoses documented for the Encounter. Date/Time Primary/Secondary Diagnosis Diagnosis Name Provider Source Apr 18, 2024 12:24 PM Diagnosis for Length of Stay Calculus of GB w acute and chronic cholecyst w/o obstruction [facility] Apr 18, 2024 12:24 PM SECONDARY Anxiety disorder, unspecified [facility] Apr 18, 2024 12:24 PM SECONDARY Depression, unspecified [facility] Apr 18, 2024 12:24 PM SECONDARY Gastro-esophageal reflux disease without esophagitis [facility] Apr 18, 2024 12:24 PM SECONDARY Migraine, unsp, not intractable, without status migrainosus [facility] Apr 18, 2024 12:24 PM SECONDARY Myalgia, other site [facility] Apr 18, 2024 12:24 PM SECONDARY Obstructive sleep apnea (adult) (pediatric) [facility] Plan of Treatment: Future Appointments (+ 6 months) and Future Tests (+/- 45 days) The Plan of Treatment section includes future care activities for the patient [facility] This section includes future appointments and future orders which are active, pending or scheduled. Future Appointments This section includes appointments that were scheduled to occur 6 months from the date of the Encounter, up to a maximum of 20 appointments. The data comes from all [place] treatment [facility]. Appointment Date/Time Appointment Type Appointme nt Facility Name Apr 22, 2024 02:00 PM AMBULATORY - PSYCHIATRY [facility] Apr 22, 2024 03:30 PM AMBULATORY - MEDICINE [facility] Apr 27, 2024 02:45 PM AMBULATORY - SURGERY [facility] May 01, 2024 11:00 AM AMBULATORY - NONE [facility] May 15, 2024 09:30 AM AMBULATORY - SURGERY [facility] May 20, 2024 03:30 PM AMBULATORY - NONE [facility] May 28, 2024 02:00 PM AMBULATORY - PSYCHIATRY [facility] Jun 03, 2024 11:30 AM AMBULATORY - SURGERY [facility] Jun 11, 2024 01:00 PM AMBULATORY - PSYCHIATRY [facility] Jun 29, 2024 03:00 PM AMBULATORY - NONE . [facility] Jul 17, 2024 01:24 PM AMBULATORY - MEDICINE [facility] Jul 22, 2024 10:30 AM AMBULATORY - MEDICINE [facility] Jul 24, 2024 04:14 AM AMBULATORY - MEDICINE [facility] Aug 07, 2024 03:00 PM AMBULATORY - MEDICINE [facility] Oct 07, 2024 04:15 PM AMBULATORY - MEDICINE [facility] Oct 10, 2024 05:20 AM AMBULATORY - MEDICINE [facility] Active, Pending, and Scheduled Orders This section includes a listing of several types of active, pending, and scheduled orders, including clinic medications orders, diagnostic test orders, procedure orders and consult orders; where the start date of the order is 45 days before the date of the Encounter or 45 days after the date of theEncounter. The data comes from all [facility] facilities. Test Date/Time Test Type Test Details Facility Name Mar 06, 2024 12:00 AM Laboratory - Chemistry Order CBC (DIFF&PLT) BLOOD SP [facility] Mar 06, 2024 12:00 AM Laboratory - Chemistry Order COMPREHENSIVE METABOLIC PANEL BLOOD PLASMA SP [facility] Mar 06, 2024 12:00 AM Laboratory - Chemistry Order URINALYSIS URINE SP [facility] Mar 06, 2024 12:00 AM Laboratory - Chemistry Order LIPID PANEL BLOOD PLASMA [facility] Mar 06, 2024 12:00 AM Laboratory - Chemistry Order TSH-G,LC,J,T BLOOD PLASMA [facility] Mar 06, 2024 12:00 AM Laboratory - Chemistry Order HEMOGLOBIN %A1C PROFILE BLOOD SP [facility] Mar 06, 2024 12:00 AM Laboratory - Chemistry Order MICROALBUMINURIA(IVONNE) URINE SP [facility] Apr 16, 2024 11:39 AM Laboratory - Chemistry Order MRSA SURVL NARES DNA NARES [facility] Apr 18, 2024 09:38 AM Laboratory - Chemistry Order MRSA SURVL NARES DNA NARES [facility] Surgical Procedures: All associated to the encounter This section includes all Surgical Procedures and Surgical Procedure Notes associated to the Encounter. Surgical Procedures This section includes all Surgical Procedures associated to the Encounter. Surgical Procedure Date/Time Procedure Procedure Type Procedure Qualifiers Provider Source Apr 17, 2024 12:48 PM LAPAROSCOPIC ROBOTIC ASSISTED CHOLECYSTECTOMY LAPAROSCOPIC CHOLECYSTECTOMY Juan ASH [facility] Surgical Notes This section includes all Surgical Notes associated to the Procedure. Date/Time Apr 17, 2024 12:48 PM OPERATIVE REPORT: LOCAL TITLE: OPERATION REPORT STANDARD TITLE: OPERATIVE REPORT DATE OF NOTE: APR 17, 2024@12:48 ENTRY DATE: APR 17, 2024@15:43:50 SURGEON: THOMAS ASH ATTENDING: TOMI ARNETT III URGENCY: STATUS: COMPLETED SUBJECT: Case #: [id number] OPERATION REPORT Has ADDENDA DATE OF SURGERY/PROCEDURE: 04/17/2024 SURGICAL ATTENDING PHYSICIAN: Tomi Arnett M.D. SURGEON: Jaswinder Olvera M.D. RESIDENT SURGEON: Jaswinder Olvera M.D. HARBOR MASTER: Jakub Redd M.D. PREOPERATIVE DIAGNOSIS: Intractable biliary colic POSTOPERATIVE DIAGNOSIS: Chronic cholecystitis SURGERY/PROCEDURE PERFORMED: Laparoscopic robot-assisted cholecystectomy ANESTHESIA: GENERAL FINDINGS: Chronic inflammatory changes with omentum densely adhered to right upper quadrant and the gallbladder infundibulum INDICATIONS FOR SURGERY/PROCEDURE: DESCRIPTION OF SURGERY/PROCEDURE: Patient was taken to the operating room and placed supine on the table. Appropriate preoperative antibiotics were given and SCDs were placed for DVT prophylaxis. General anesthesia was induced. Patient was secured with 2 straps and a footboard. No Prajapati. The patient's abdomen was prepped and draped in sterile fashion. We insufflated the abdomen via Veress needle at Flores's point. We gained access to the abdomen using a robotic laparoscopic port above and to the right of the umbilicus using Optiview. On inspection of the abdomen we noted dense adhesions of omentum to the right upper quadrant and to the infundibulum of the gallbladder. We placed 2 additional robotic ports in the right upper quadrant and 1 in the left upper quadrant. Using a laparoscopic atraumatic grasper we were able to release some of the omentum from the right upper quadrant but not all. We next positioned the patient in reverse Trendelenberg and right side up and docked the robot. The gallbladder was retracted cephalad with caudiere forceps. Using a fenestrated grasper and hook cautery, the adherent omentum was dissected off the gallbladder. Next, we incised the peritoneum that was overlying the gallbladder, which revealed significant edema. This plane was carried laterally and up the lateral edge of the gallbladder, and also medially and up the medial edge. Using a [place] grasper and the robotic suction-weight reducing technician we reflected down the peritoneum, fat, and connective tissue off the hepatocystic triangle until we could identify only 2 structures going into the gallbladder. Next we elevated the bottom of the gallbladder from the cystic plate. Once we felt confident we had obtained the critical view of safety we clipped and transected the cystic artery and duct. We dissected the remainder of the gallbladder off the cystic plate and encountered some oozing from the cystic plate which we controlled with hook cautery. Before completely taking the gallbladder off, we irrigated and suction copiously. We took off the gallbladder and put it in a specimen bag. Before taking the specimen out of the abdomen, we undocked the robot and performed a laparoscopic TAP block bilaterally and a wound sweep. We removed the gallbladder which required enlarging the left upper quadrant port with a clamp. This port was in layers with vicryl for the fascia and monocryl for skin. The remainder ports wre closed with monocryl. All counts were correct. The patient was woken up from anesthesia. There were no complications. SPECIMENS: 1. Gallbladder SPONGE/INSTRUMENT COUNT: CORRECT PACKS/DRAINS/CATHETERS: NONE ESTIMATED BLOOD LOSS: 20 INTRAVENOUS FLUIDS: 1400 BLOOD PRODUCTS: NONE COMPLICATIONS: NONE IMPLANTS: NONE CONDITION AT DISCHARGE: Stable PATIENT DISPOSITION: Floor ATTENDING PRESENCE: [] Level A: Attending Performing the Operation. The supervising practitioner performs the case, but may be assisted by a resident. [x] Level B: Attending in Operating Room (OR), Scrubbed. The supervising practitioner is physically present in the operative or procedural room and is directly involved in the procedure. The resident performs major portions of the procedure. [] Level C: Attending in OR, Not Scrubbed. The supervising practitioner is physically present in the operative or procedural room. The supervising practitioner observes and provides direction. The resident performs the procedure. [] Level D: Attending in OR Suite, Immediately Available. The supervising practitioner is physically present in the operative or procedural suite and immediately available for resident supervision or consultation if needed. [] Level E: Emergency Care. Immediate care is necessary to preserve life or present serious impairment. The supervising practitioner has been contacted. [] Level F: Non-OR Procedure. Routine bedside and clinic procedure done in the OR. The supervising practitioner is identified. /cydney/ JASWINDER VILLAFUERTE MD RESIDENT PHYSICIAN, GENERAL SURGERY Signed: 04/17/2024 17:19 /cydney/ Tomi Arnett III, MD [facility] General Surgery Attending Cosigned: 04/20/2024 17:52 04/20/2024 ADDENDUM STATUS: COMPLETED I was present for the entire procedure and agree witht the above . /cydney/ Tomi Arnett III, MD [facility] General Surgery Attending Signed: 04/20/2024 17:52 JASWINDER ASH Apr 17, 2024 12:48 PM SURGERY NURSING OPERATIVE NOTE: LOCAL TITLE: NURSE INTRAOPERATIVE REPORT STANDARD TITLE: SURGERY NURSING OPERATIVE NOTE DATE OF NOTE: APR 17, 2024@12:48 ENTRY DATE: APR 17, 2024@15:43:50 AUTHOR: JOHANNE MARTINEZ COSIGNER: URGENCY: STATUS: COMPLETED SUBJECT: Case #: [id number] Operating Room: OR 04 Surgical Priority: ADD ON (NON-EMERGENT) Patient in Hold: APR 17, 2024 11:50 Patient in OR: APR 17, 2024 12:48 Operation Begin: APR 17, 2024 13:21 Operation End: APR 17, 2024 15:32 Surgeon in OR: APR 17, 2024 13:19 Patient Out OR: APR 17, 2024 15:43 Major Operations Performed: Primary: LAPAROSCOPIC ROBOTIC ASSISTED CHOLECYSTECTOMY Robotic Assistance (Y/N): YES Other: TAPS BLOCK Wound Classification: CLEAN/CONTAMINATED Operation Disposition: GRIMM Discharged Via: STRETCHER Primary Surgeon: JASWINDER ASH Assist: JAKUB REDD V Attending Surgeon: ARNETT,TOMI E IIISecond Assist: N/A Third Helper: NIMESH ANTONY Gate Operator Anesth: N/A OR Support Personnel: Scrubbed Circulating ENOC LUCERO JR (FULLY TRAINED) JOHANNE MARTINEZ (FULLY TRAINED) AURELIO NUNO (FULLY TRAINED) ROYA GOVEA (FULLY TRAINED) TRAE FITZGERALD (FULLY TRAINED) Preop Mood: RELAXED Preop Consc: ALERT-ORIENTED Preop Skin Integ: INTACT Preop [place]: RESPONDS TO QUESTIONS --- Time Out Checklist --- Confirm Correct Patient Identity: YES Confirm Procedure To Be Performed: YES Confirm Site of the Procedure, Including Laterality: YES Confirm Valid Consent: YES, i-MED Confirm Patient Position: YES Confirm Procedure Site has been Marked Appropriately and that the Site of the Aurelio is Visible After Prep and Draping: YES Pertinent Medical Images Have Been Confirmed: YES Correct Medical Implant(s) is Available: NOT APPLICABLE Availability of Special Equipment: YES Appropriate Antibiotic Prophylaxis: YES Appropriate Deep Vein Thrombosis Prophylaxis: YES Blood Availability: YES Checklist Comment: BRIEFING AND DEBRIEFING COMPLETED Time-Out Document Completed By: AURELIO NUNO Time-Out Completed: APR 17, 2024@13:20 Skin Prep By: AURELIO NUNO Skin Prep Agent: CHLORAPREP Preop Surgical Site Hair Removal by: N/A Surgical Site Hair Removal Method: NO HAIR REMOVED Hair Removal Comments: NO COMMENTS ENTERED Surgery Position(s): SUPINE Placed: N/A Restraints and Position Aids: SAFETY STRAP Applied By: N/A Electrocautery Unit: ERBE #[id number] ESU Coagulation Range: 3 ESU Cutting Range: 3 Electroground Position(s): LEFT ANT THIGH Material Sent to Laboratory for Analysis: Specimens: GALLBLADDER-PERM Cultures: N/A Anesthesia Technique(s): GENERAL (PRINCIPAL) LOCAL Tubes and Drains: NONE Thermal Unit: RASHAUN JAEL Temperature: N/A Time On: N/A Time Off: N/A Medications: BUPIVACAINE HCL 0.5% INJ 10ML Time Administered: APR 17, 2024 15:10 Route: INFILTRATE Dosage: 30 ML Ordered By: Chi ARNETT Admin By: TOMI ARNETT III Comments: TAPS BLOCK Irrigation Solution(s): NORMAL SALINE Possible Item Retention: YES Sponge Final Count Correct: YES Sharps Final Count Correct: YES Instrument Final Count Correct: YES Wound Sweep: YES Wound Sweep Comment: (Instruments, sharps, and soft goods) Initial count counted by: Rose MARTINEZ Before wound closure counted by: Rose LUCERO AND Sanchez NUNO Final count counted by: Rose NUNO A methodical exploration of the operative wound conducted prior to wound closure. Intra-Operative X-Ray: NO Intra-Operative X-Ray Comment: NO COMMENTS ENTERED Counter: ROSANGELATOMA WATTS V Counts Verified By: TRAE FITZGERALD Dressing: STERI STRIPS, 2X2, TEGADERM Packing: NONE Postoperative Mood: RELAXED Postoperative Consciousness: RESTING Postoperative Skin Integrity: INCISION Postoperative Skin Color: PINK Sequential Compression Device: YES Immediate Use Steam Sterilization Episodes: Contamination: 0 SPS Processing/OR Management Issues: 0 Emergency Case: 0 No Better Option: 0 Loaner or Short Notice Instrument: 0 Decontamination of Instruments Contaminated During the Case: 0 Nursing Care Comments: PATIENT SEEN PREOPERATIVELY WITH 2 IDENTIFIERS, VERIFICATION OF PROCEDURE, ALLERGIES, AND NPO STATUS. TRANSPORTED TO OR AND MOVED TO OR TABLE WITH MINIMAL ASSISTANCE. COMFORT MEASURES PROVIDED. ANESTHESIA RESPONSIBLE FOR I & O'S, THERMOREGULATION, AND FLUID MANAGEMENT. POSITIONING: SUPINE, FOAM HEADREST, BILATERAL ARMS WRAPPED IN FOAM PADDING AND TUCKED AT SIDE IN CORRECT ALIGNMENT, PADDED SAFETY STRAP x2 AT CHEST AND THIGHS, BILATERAL HEELS PADDED, ALL LINES AND BONY PROMINENCES SECURED, CHECKED FOR PRESSURE AND PADDED NECESSARY WITH FOAM. SCD'S ON AND FUNCTIONING PRIOR TO INDUCTION BOVIE SITE CLEAR PRE AND POST OPERATIVELY PREP: PROVIDED PATIENT WITH A SAFE AND THERAPUETIC ENVIRONMENT ACCORDING TO MEDICAL, SURGICAL, AND AGE SPECIFIC NEEDS. REPORT CALLED TO HUMAN SERVICES CASE MANAGER AND TRANSPORTED TO PACU BY ANESTHESIA AND SURGEON IN STABLE CONDITION ON O2. NO ANSWER FROM FAMILY AT 1334, WILL TRY AGAIN LATER. ROBOT DOCKED AT 1344 AND UNDOCKED AT 1459. /cydney/ TRAE FITZGERALD RN, BSN REGISTERED NURSE Signed: 04/17/2024 15:47 for JOHANNE CHAMBERS RN OR REGISTERED NURSE TRAE FITZGERALD Lab Results: +/- 30 days of the encounter This section includes the Chemistry and Hematology Lab Results [facility] with [facility] for [facility]. Radiology Reports and Pathology Reports are provided separately, in subsequent sections. Lab Results This section contains the Chemistry/Hematology Results that were resulted 30 days before or 30 daysafter the date of the Encounter. Date/Time Source Result Type Result - Unit Interpretation Reference Range Specimen Type Comment Apr 17, 2024 08:49 PM [facility] BASIC METABOLIC PANEL PLASMA Specimen Type: PLASMA Comment: No hemolysis noted. Ordering Provider: JAKUB REDD V Report Released Date/Time: Apr 16, 2024 04:01 PM Reporting Lab: [facility] [address] [place] [phone] Performing Lab: [address] [address] CREATININE 1.22 mg/dL 0.7-1.3 UREA NITROGEN 12.4 mg/dL 9.0-25.0 GLUCOSE 131 mg/dL H 72-99 SODIUM 139 meq/L 136-145 POTASSIUM 4.6 meq/L 3.5-5 CHLORIDE 105 meq/L 98-107 CARBON DIOXIDE 23 meq/L 22-31 CALCIUM 9.2 mg/dL 8.4-10.4 EGFR (CKD-EPI 2020) 79.3 >60 Apr 17, 2024 08:49 PM [facility] CBC BLOOD Specimen Type: BLOOD No comment entered. Ordering Provider: JAKUB REDD V Report Released Date/Time: Apr 16, 2024 04:01 PM Reporting Lab: [facility] [address] [place] [phone] Performing Lab: [address] [address] WBC 11.4 10*3/uL H 3.6-11.2 RBC 5.43 [...] 0.00-0. 20 Apr 16, 2024 08:18 PM [facility] BASIC METABOLIC PANEL PLASMA Specimen Type: PL ASMA Comment: No hemolysis noted. Ordering Provider: JAKUB REDD V Report Released Date/Time: Apr 16, 2024 04:01 PM Reporting Lab: [address] [address] Performing Lab: [address] [address] CREATININE 1.21 mg/dL 0.7-1.3 UREA NITROGEN 11.5 mg/dL 9.0-25.0 GLUCOSE 99 mg/dL 72-99 SODIUM 141 meq/L 136-145 POTASSIUM 3.8 meq/L 3.5-5 CHLORIDE 105 meq/L 98-107 CARBON DIOXIDE 25 meq/L 22-31 CALCIUM 9.2 mg/dL 8.4-10.4 EGFR (CKD-EPI 2020) 80.1 >60 Apr 16, 2024 08:18 PM [facility] APTT PLASMA Specimen Type: PLASM A No comment entered. Ordering Provider: JAKUB REDD V Report Released Date/Time: Apr 16, 2024 04:02 PM Reporting Lab: [address] [address] Performing Lab: [address] [address] APTT 28.9 s 26.7-39.9 Apr 16, 2024 08:18 PM [facility] PT/INR NEW (STL-MA) PLASMA Specimen Type: PLAS MA No comment entered. Ordering Provider: JAKUB REDD V Report Released Date/Time: Apr 16, 2024 04:02 PM Reporting Lab: [place] [id number] [facility] [address] Performing Lab: [address] [address] PROTIME 12.3 s 9.4-12.5 INR VALUE 1.1 {INR} Apr 16, 2024 08:18 PM [facility] CBC BLOOD Specimen Type: BLOOD No comment entered. Ordering Provider: JAKUB REDD V Report Released Date/Time: Apr 16, 2024 04:01 PM Reporting Lab: [place] [address] [facility] [address] Performing Lab: [address] [address] WBC 6.8 10*3/uL 3.6-11.2 RBC 5.13 10*6/uL [...] 0.00-0. 20 Apr 16, 2024 03:25 AM [facility] LIPASE PLASMA Specimen Type: PLASM A Comment: No hemolysis noted. Ordering Provider: ADINA WALTON Report Released Date/Time: Apr 16, 2024 03:23 AM Reporting Lab: [address] [place] [address] Performing Lab: [facility] [address] [facility] [address] LIPASE 36 U/L 8-78 Apr 16, 2024 03:25 AM [facility] GGT GAMMA-GT PLASMA Specimen Type: PLASM A Comment: No hemolysis noted. Ordering Provider: ADINA WALTON Report Released Date/Time: Apr 16, 2024 03:23 AM Reporting Lab: [address] [address] Performing Lab: [address] [address] GGT GAMMA-GT 25 [IU]/L 12-64 Apr 16, 2024 03:25 AM [facility] COMPREHENSIVE METABOLIC PANEL PLASMA Specimen Type: PLASMA Comment: No hemolysis noted. Ordering Provider: ADINA WALTON Report Released Date/Time: Apr 16, 2024 03:23 AM Reporting Lab: [address] [address] Performing Lab: [address] [address] CREATININE 1.42 mg/dL H 0.7-1.3 UREA NITROGEN [...] 66.1 >60 Apr 16, 2024 03:25 AM [facility] CBC BLOOD Specimen Type: BLOOD No comment entered. Ordering Provider: ADINA WALTON Report Released Date/Time: Apr 16, 2024 03:23 AM Reporting Lab: [facility] [address] [facility] [address] Performing Lab: [facility] [address] [facility] [address] WBC 8.8 10*3/uL 3.6-11.2 RBC 5.41 10*6/uL [...] 0.60 BASOPHILS, ABSOLUTE 0.06 10*3/uL 0.00-0. 20 Vital Signs: All taken on the encounter date This section contains inpatient and outpatient Vital Signs collected on the date of the Encounter. Date/Time Temperature Pulse Blood Pressure Respiratory Rate SP02 Pain Height Weight Body Mass Index Source Apr 16, 2024 08:23 PM 98.2 77 123/69 18 95 0 [facility] Apr 16, 2024 06:41 PM 243.6 31 [facility] Apr 16, 2024 06:39 PM 98.3 79 123/77 18 96 0 [facility] Apr 16, 2024 06:32 PM 0 [facility] Apr 16, 2024 11:25 AM 75 111/80 14 97 [facility] Social History: Smoking Status (Most current) and Tobacco Use (All prior to encounter date) This section includes the most current, and the historical, smoking and tobacco- related health factors from the [place] facility where the Encounter took place. Current Smoking Status This section includes the most current smoking, or tobacco-related health factor, from the [place] facility where the Encounter took place. Date/Time Current Smoking Status Comment Shameka martínez Jan 08, 2024 04:16 PM [facility]-TOBACCO FORMER USER [facility] Tobacco Use History This section includes a history of the smoking, or tobacco-related health factors, that were collected on or before the date of the Encounter. The data comes from the [place] facility where the Encounter took place. Date/Time Smoking Status/Tobacco Use Comment F accammy Jan 08, 2024 04:16 PM VA-TOBACCO QUIT 15 YRS OR MORE [facility] Dec 18, 2023 09:41 AM VA-TOBACCO FORMER USER [facility] Dec 18, 2023 09:41 AM VA-TOBACCO QUIT 1 TO < 5 YRS [facility] Advance Directives: All historical and current Section Date Range: From patient's date of to the date document was created. This section includes ALL of a patient's completed or amended [place] Advance and Rescinded Directives. The entries below indicate that a directive exists for the patient, but an actual copy is not included with this document. The data comes from all [facility]. Date Advance Directives Provider Source Aug 28, 2023 ADVANCE DIRECTIVE NO TIFICATION AND SCREENING SYLWIA SANTIAGO [facility] May 14, 2023 ADVANCE DIRECTIVE NO TIFICATION AND SCREENING SYLWIA SANTIAGO [facility] Radiology Reports: +/- 30 days of the [...] the Encounter. The data comes from all [place] treatment facilities. Date/Time Radiology Report Provider Source May 15, 2024 09:10 AM BONE DENSITY-P: MERLE LAFLEUR [id number] -[id number] M Exm Date: MAY 15, 2024@09:10 Req Phys: SOBIA SORENSEN Loc: [facility]NEUROSURGERY RETINAL SURGEON 1 (Req'g Lo Img Loc: [facility]BONE DENSITY Service: Unknown [facility], [address] [place] [address] (Case [id number] COMPLETE) NM BONE DENSITY(DXA), AXIAL SKELE(NM Detailed) CPT:39675 Reason for Study: L2, L3 comprerssion (Case [id number] COMPLETE) NM BONE DENSITY(DXA), APPENDICULA(NM Detailed) CPT:92914 Clinical History: BONE DENSITY Osteoporosis and Vertebral Fracture Screening Information Reason for exam: Compression fracture WT: 241 lb [109.32 kg] (04/27/2024 14:41) HT: 74 in [188.0 cm] (04/27/2024 14:41) Report Status: Verified Date Reported: MAY 15, 2024 Date Verified: MAY 15, 2024 Gas Meter Reader E-Sig:/ES/Leticia Haas M.D. Report: Dual -Energy X-ray Absorptiometry (DXA) with Trabecular Bone Score (TBS) calculation Findings: Bone mineral density measurements of the forearm, proximal femur and lumbar spine with their appropriate regions of interest outlined are available for viewing in [facility] Viewer. Lumbar spine: Measured [...] -2.5 or lower; Primary Interpreting Staff: Leticia Haas M.D., NUCLEAR MEDICINE PHYSICIAN (Gas Meter Reader) / LETICIA HAAS [facility] May 01, 2024 09:48 AM MRI SPINE LUMBAR W /O CONT: MERLE LAFLEUR [id number] -1990 M Exm Date: MAY 01, 2024@09:48 Req Phys: VALARIESOBIA Chavez Loc: [facility]-NEUROSURGERY RETINAL SURGEON 1 (Req'g Lo Img Loc: [facility]MAGNETIC RESONANCE IMAGING Service: Unknown [facility] [address] [place] [address] (Case [id number] COMPLETE) MRI SPINE LUMBAR W/O CONT (MRI Detailed) CPT:71808 Reason for Study: Low back pain. L2, [...] Apr Responsible Attending: Valarie Attending Contact Number: [id number] Resident Contact Number: Does your patient have [...] 01, 2024 Date Verified: MAY 01, 2024 Gas Meter Reader E-Sig:/ES/MONICA DUARTE Report: INDICATION: Low back pain. [...] above. Primary Interpreting Staff: MONICA DUARTE, RADIOLOGIST (Gas Meter Reader) /MONICA ROJAS [facility] Apr 16, 2024 07:12 AM US ABDOMEN LIMITED W/BLOOD FLOW DOPPLER: MERLE LAFLEUR [id number] -1990 M Exm Date: APR 16, 2024@07:12 Req Phys: ADINA WALTON Loc: [facility]-EMERGENCY DEPT 1ST SHIFT (R Img Loc: [facility]ULTRASOUND [facility] Service: Unknown [facility], [facility] [address] [place] [address] (Case [id number] COMPLETE) US ABDOMEN LTD, SINGLE ORG OR MORTEZA(US Detailed) CPT:89627 Reason for Study: eval acute cholecystitis (Case [id number] COMPLETE) US BLOOD FLOW ABD/RENAL (LTD) (US Detailed) CPT:52351 Clinical History: Organ to Image: Gallbladder Reason for exam: ho cholelithiasis. here with RUQ abdominal pain and nausea/emesis. Evaluate for acute cholecystitis Report Status: Verified Date Reported: APR 16, 2024 Date Verified: APR 16, 2024 Gas Meter Reader E-Sig:/ES/JAIRO MCCOY Report: Case [id number], [id number]. US ABDOMEN LTD, SINGLE ORG OR QUADRANT, [...] findings. Primary Interpreting Staff: JAIRO MCCOY, RADIOLOGIST (Gas Meter Reader) Primary Interpreting Resident: JOSE ROBERTO RAMSAY, Resident Physician /JAIRO NGUYEN [facility] Apr 16, 2024 04:[address] ABD PEL W/O & W CONT & 3D: MERLE LAFLEUR [id number] -1990 M Ex Date: APR 16, 2024@04:46 Req Phys: ADINA WALTON Loc: [facility]EMERGENCY DEPT 1ST SHIFT (R Img Loc: [facility]-CT IMAGING [facility] Service: Unknown [facility] [address] [place] [address] (Case [id number] COMPLETE) CT ABDOMEN AND PELVIS W/CONTRAST (CT Detailed) CPT:11452 Contrast Media : Non-ionic Iodinated Reason for Study: evaluate for acute cholecystitis (Case [id number] COMPLETE) CT 3D RENDERING W INDEPENDENT WOR(CT Detailed) CPT:77547 Clinical History: Responsible Attending: jordon Attending Contact Number: fl Resident Contact Number: ho cholelithiasis, now wiht [...] 16, 2024 Date Verified: APR 16, 2024 Gas Meter Reader E-Sig:/ES/RANDALL JULES MD Report: Spiral axial imaging [...] Primary Interpreting Staff: RANDALL JULES MD, Radiologist (Gas Meter Reader) /RANDALL BLANK [facility] Mar 25, 2024 07:[address] LUMBAR SPINE W/ O CONT: MERLE LAFLEUR [id number] -1990 M Exm Date: MAR 25, 2024@19:39 Req Phys: EMMIE PATTEN Loc: [facility]EMERGENCY DEPT 3RD SHIFT (R Img Loc: [facility]CT IMAGING [facility] Service: Unknown [facility] [address] [place] [address] (Case [id number] COMPLETE) CT LUMBAR SPINE W/O CONT (CT Detailed) CPT:27802 Reason for Study: eval for fx/dislocation Clinical History: Responsible Attending: DR EMMIE PATTEN Attending Contact Number: [phone] Resident Contact Number: FELL while roller blading. [...] 25, 2024 Date Verified: MAR 25, 2024 Gas Meter Reader E-Sig: Report: CT THORACIC SPINE W/O CONT, CT LUMBAR SPINE W/O CONT HISTORY: eval for fx/dislcoation COMPARISON: No priors available. TECHNIQUE: The study was protocoled and supervised at the local [place] facility. 2807 images were subsequently received by the [place] National Teleradiology Program (NTP) for interpretation. Volumetric [...] fracture fragments. READING PHYSICIAN: Caio Rollins MD -[id number] 03/25/2024 18:30 PDT [facility] National Teleradiology Program [phone] (For Medical Practitioner Use Only) Attention Patients / Veterans: If you have questions or concerns about these test results, please contact your ordering provider or primary care team. Primary Interpreting Staff: RADIOLOGY,OUTSIDE SERVICE, Staff Physician / RADIOLOGY,OUTSIDE SERVICE [facility] Mar 25, 2024 07:[address] THORACIC SPINE W/O CONT: MERLE LAFLEUR [id number] -1990 M Exm Date: MAR 25, 2024@19:39 Req Phys: EMMIE PATTEN Loc: [facility]EMERGENCY DEPT 3RD SHIFT (R Img Loc: [facility]CT IMAGING [facility] Service: Unknown [facility] [address] [place] [address] (Case [id number] COMPLETE) CT THORACIC SPINE W/O CONT (CT Detailed) CPT:35459 Reason for Study: eval for fx/dislcoation Clinical History: Responsible Attending: dr emmie patten Attending Contact Number: [phone] Resident Contact Number: FELL while roller blading. [...] 25, 2024 Date Verified: MAR 25, 2024 Gas Meter Reader E-Sig: Report: CT THORACIC SPINE W/O CONT, CT LUMBAR SPINE W/O CONT HISTORY: eval for fx/dislcoation COMPARISON: No priors available. TECHNIQUE: The study was protocoled and supervised at the local [place] facility. 2807 images were subsequently received by the [place] National Teleradiology Program (NTP) for interpretation. Volumetric [...] fracture fragments. READING PHYSICIAN: Caio Rollins MD -[id number] 03/25/2024 18:30 PDT [facility] National Teleradiology Program [phone] (For Medical Practitioner Use Only) Attention Patients / Veterans: If you have questions or concerns about these test results, please contact your ordering provider or primary care team. Primary Interpreting Staff: RADIOLOGY,OUTSIDE SERVICE, Staff Physician / RADIOLOGY,OUTSIDE SERVICE [facility] Pathology Reports: +/- 30 [...] the Encounter. The data comes from all [place] treatment facilities. Date/Time Pathology Report Provider Source Apr 21, 2024 11:44 AM LR SURGICAL PATHOL [facility] REPORT: LOCAL TITLE: LR SURGICAL PATHOLOGY REPORT STANDARD TITLE: PATHOLOGY PROCEDURE NOTE DATE OF NOTE: APR 21, 2024@11:44:09 ENTRY DATE: APR 21, 2024@11:44:09 AUTHOR: MARLO MORALES EXP COSIGNER: URGENCY: STATUS: COMPLETED $APHDR [...] - POSTOPERATIVE DIAGNOSIS: intractable billiary colic Surgeon/physician: TOMI ARNETT III =-=-=-=-=-=-=-=-=-=-=-=-=-=- =-=-=-=-=-=-=-=-=-=-=-=-=-=- =-=-=-=-=-=-=-=-=-=-=-= - - [...] seen, and no masses are grossly identified. Slat Pickler sections of the wall from the body and fundus are submitted in A1, and the shaved cystic duct margin is submitted in A2. MICROSCOPIC EXAM: Marlo Morales MD 04/21/2024 Microscopic description substantiates final diagnosis. DIAGNOSIS: GALLBLADDER, LAPAROSCOPIC CHOLECYSTECTOMY: - SEVERE ACUTE AND CHRONIC CHOLECYSTITIS - CHOLELITHIASIS - NEGATIVE FOR MALIGNANCY /cydney/ MARLO MORALES Pathologist Signed Apr 21, 2024@11:44 Performing Laboratory: Surgical Pathology Report Performed By: [address]# [id number] [address] [place] [phone] $FTR - - - - - - - - - - - - - - - - - - - - - - - - - - - - - - - - - - - - - - - - (End of report) MARLO MORALES MD Date Apr 21, 2024 - - - - - - - - - - - - - - - - - - - - - - - - - - - - - - - - - - - - - - - - MERLE LAFLEUR STANDARD FORM 515 ID:[id number] SEX:M :1990 AGE: 34 LOC:APFEE PCP: Jaswinder Villafuerte MD /cydney/ MARLO MORALES Pathologist Signed: 04/21/2024 11:44 MARLO MORALES [facility] Encounter Notes: All associated encounter notes This section contains the clinical notes associated to the Encounter. Date/Time Encounter Note(s) Provider Source Apr 18, 2024 01:33 PM NURSING INPATIENT NOTE: LOCAL TITLE: [facility] NURSING FREQUENT DOCUMENTATION STANDARD TITLE: NURSING INPATIENT NOTE DATE OF NOTE: APR 18, 2024@13:33 ENTRY DATE: APR 18, 2024@13:33:28 AUTHOR: ROCKY YORK EXP COSIGNER: URGENCY: STATUS: COMPLETED Version 2.4 Charting in accordance with [place] APPROVED [place] STANDARD (VAAES) ACUTE INPATIENT/REHABILITATION NURSING ADMISSION SCREENING, ASSESSMENT, AND STANDARDS OF CARE ======== ACTIVITIES OF DAILY LIVING ======== Hygiene ADLs: Dressing: Upper Body: Independent Lower Body: Independent Eating: Independent Foot Care: Inspection Hand Hygiene: Performed post toileting Performed pre meals/snacks Oral Care: Non-ventilator patient: Patient teeth brushed: Patient declined Said he will brush he teeth at home. Pericare: Patient declined Personal Care: Patient declined Toileting: Independent ========= ACTIVITY/MOBILIZATION ========= Mobility Status: Independent: Able to stand and step without staff assistance Steady standing balance [facility] Level of Mobility achieved this shift: ======== ENVIRONMENTAL SAFETY MANAGEMENT ======== Implemented safety standards of care: -[place] to unit & environment -Adequate room lighting -Bed in low and locked position -Call light within reach -Personal items within reach -Traffic path in room free of clutter -Non-slip footwear -Upper/half length side rails up for bed mobility -Sensory aids within reach -Encourage patient to utilize sensory support ======== GASTROINTESTINAL ======== No bowel movement reported by patient Elimination: Continent ======== GENITOURINARY ======== Elimination: Continent Color/Characteristic: Yellow ========= ORAL INTAKE (PERCENTAGE OF MEAL EATEN) ========= Lunch: None Reasons for Inadequate Intake: Other: He was gettign discharged and didn't want any lunch. /es/ ROCKY N YORK, NA DIRECTOR FACILITIES MAINTENANCE Signed: 04/18/2024 13:34 ROCKY YORK [facility] Apr 18, 2024 01:21 PM NURSING TRANSFER SUMMARIZATION DISCHARGE NOTE: LOCAL TITLE: FRANCIS DISCHARGE/TRANSFER SUMMARY ST STANDARD TITLE: NURSING TRANSFER SUMMARIZATION DISCHARGE NOTE DATE OF NOTE: APR 18, 2024@13:21 ENTRY DATE: APR 18, 2024@13:22:13 AUTHOR: IZAIAH HUDDLESTON COSIGNER: URGENCY: STATUS: COMPLETED DISCHARGE - TRANSFER SUMMARY Action: Discharge Diagnosis: Last Admission: 04/16/24 3:36:52 pm Admit Dx: INTRACTABLE BILARY COLIC Age: 34 Allergies: Patient has answered NKA Patient Condition: Stable Vital Signs: Temperature: 97.7 F [36.5 C] (04/18/2024 09:15) Pulse: 82 (04/18/2024 09:15) Respiration: 18 (04/18/2024 09:15) Blood Pressure: 116/73 (04/18/2024 09:15) Pain: 7 (04/18/2024 09:51) Fall Risk Assessment Score: 45 Fall Risk Level: No Risk ===== SUICIDE SCREEN ===== C-SSRS Screen is Negative LEVEL OF LIFT REQUIRED: No assistance Safe Patient Handling - Patient Mobility Assessment Tool Isolation: No Precautions: None Orientation: x3 Hygiene: Self Care Nutrition: Regular diet Special needs: Assistance: Assist Bowel/Bladder: Date of last bowel movement: Mar Defecation: Normal Able to void: YES Continent: YES Catheter: No Wound / Skin Condition: SKIN REINSPECTION/REASSESSMENT SKIN INSPECTION: Skin Color: Usual for ethnicity Skin Temperature: Warm Skin Moisture: Normal Skin Turgor: Elastic (normal/immediate) Flo Skin Assessment: The patient's Flo Scale Score is 22. The patient is considered not at risk for development of pressure ulcers/injuries. Sensory perception -- ability to respond meaningfully to pressure-related discomfort No impairment. Moisture -- degree to which skin is exposed to moisture Rarely moist. Activity -- ability to change and control body position Walks occasionally. Mobility -- ability to change and control body position No limitation. Nutrition -- usual food intake patterns Excellent. Friction and shear No apparent problem. INTERVENTIONS: No change in previous interventions as listed below 04/17/2024 V[facility] Pressure Injury Int Not Needed RISK FACTORS THAT INCREASE RISK FOR DEVELOPING PRESSURE INJURIES The patient/resident does not have any additional risk factors. SKIN ALTERATIONS: Pressure Ulcer/Injury Documentation from the past year: No data available SKIN ALTERATIONS: Wound Documentation from the past year: No data available for: Skin Integrity - Wound Skin Integrity - Wound Second Skin Integrity - Wound Third Skin Integrity - Wound Fourth Skin Integrity - Wound Fifth Skin Integrity - Wound Additional SKIN INTEGRITY: Intact STANDARD OF CARE / PRACTICE IMPLEMENTED: Indicate status at Discharge/Transfer: Stabilized Flu Shot Given: No Patient refused Pneumococcal Shot Given: No Patient refused MRSA Discharge Swab Done: No Reason: policy Discharged/Transfered to: Own home without home care services Accompanied by (Name & Relationship): Next of Kin notified: NO Discharge/Transfer Mode: Wheelchair Discharged/Transferred with: Written Discharge Instructions Medications Return Appointments [facility] [place] was informed of the date and time of his/her follow-up mental health appointments: YES The was provided the opportunity to cancel or change his/her scheduled follow-up mental health appointments: YES [facility] [place] was educated about what to do and who to contact should he/she need to cancel the follow-up mental health appointment: YES Clothing / Valuables returned: Yes Describe: packed his own belongings Prosthetics with patient: Dentures/Partials with patient: None Glasses with patient: YES Other: NA Printed MD Instruction sheet with medication list reviewed and given to the patient/caregiver. Patient/Caregiver verifies medication list is complete and accurate. /cydney/ IZAIAH HUDDLESTON RN Registered Nurse Signed: 04/18/2024 13:34 IZAIAH HUDDLESTON [facility] Apr 18, 2024 12:24 PM DISCHARGE SUMMARY: LOCAL TITLE: Discharge Summary STANDARD TITLE: DISCHARGE SUMMARY DICT DATE: APR 19, 2024@16:32 ENTRY DATE: APR 19, 2024@16:33:17 DICTATED BY: TROY LUIS ATTENDING: TODD BRANNON URGENCY: routine STATUS: COMPLETED PRINCIPAL DIAGNOSIS: Symptomatic cholelithiasis SECONDARY DIAGNOSES: Significant Medical Problems PRESENT on Admission: None Significant Medical Problems NOT PRESENT on Admission: None OPERATIVE/INVASIVE PROCEDURES: Robotic assisted cholecystectomy ATTENDING PHYSICIAN: Todd Brannon M.D. BRIEF HISTORY AND ESSENTIAL PHYSICAL FINDINGS: 34-year-old male with PMH of depression, anxiety, MARY, GERD, MSK pain, migraines, TBI, and symptomatic cholelithiasis presented to the ED with 1 day of worsening RUQ abdominal pain, nausea, emesis concerning for biliary colic versus acute cholecystitis. CT A/P noted mild fat stranding adjacent to the gallbladder but no wall thickening, gallbladder distention, pericholecystic fluid to definitively suggest acute cholecystitis. Given severity of his pain, he was admitted to our service for planned operative intervention. HOSPITAL COURSE: Patient was taken to the OR on 726 and underwent robotic assisted cholecystectomy. Postoperatively he tolerated a regular diet, was voiding without difficulty, and his pain was well controlled. He was discharged in stable condition. CONDITION ON DISCHARGE: Good FOLLOW-UP: 04/22/2024 14:00 [facility] IND BORN SW 05/15/2024 09:30 [facility] SURG I CLINIC 08/25/2024 10:30 [facility]-PACT E4 PCP NON-VA FOLLOW-UP CARE: Not applicable. DISCHARGE MEDICATIONS: Active Outpatient Medications (including Supplies): Active [...] REFLUX. TAKE 30 MINUTES PRIOR TO FOOD. 8) OXYCODONE HCL 5MG TAB TAKE ONE TABLET BY MOUTH EVERY ACTIVE 6 HOURS NEEDED FOR POST-OPERATIVE PAIN MAY CAUSE CONSTIPATION ALLERGIES OR DRUG SENSITIVITIES: Patient has answered NKA DIET: Regular ACTIVITY: As tolerated INFORMATION REGARDING CONDITION OR PROPER HOME AND/OR WOUND CARE: Not applicable. RETURN TO WORK: 2 weeks DISPOSITION: [X} Discharge home [ ] Discharge to home hospice [ ] Transfer to half-way [ ] Transfer to rehab [ ] Transfer to psychiatry [ ] Transfer to Spinal cord injury unit [ ] Transfer to hospice [ ] Transfer to outside facility: [ ] Transfer to outside facility under hospice: [ ] : autopsy approved by Next of Kin [ ] : autopsy not approved by Next of Kin [ ] : autopsy resulting from roll cleaner's case [ ] Other: COMPETENCY: [X] The patient is competent in the [place] sense of the word. [ ] The patient is not competent in the [place] sense of the word. TOTAL TIME SPENT FOR FINAL HOSPITAL DISCHARGE: 30 minutes. Verified By MRT/FABIANO /cydney/ TODD BRANNON MD Staff Physician, General Surgery I Signed: 04/27/2024 11:50 for Troy Luis MD Resident Physician, General Surgery /cydney/ TODD BRANNON MD Staff Physician, General Surgery I Cosigned: 04/27/2024 11:50 TODD BRANNON [facility] Apr 18, 2024 09:34 AM PHYSICIAN EDUCATION DISCHARGE NOTE: LOCAL TITLE: DISCHARGE INSTRUCTIONS [facility] STANDARD TITLE: PHYSICIAN EDUCATION DISCHARGE NOTE DATE OF NOTE: APR 18, 2024@09:34 ENTRY DATE: APR 18, 2024@09:34:52 AUTHOR: TROY LUIS EXP COSIGNER: JUMANA STROUD URGENCY: STATUS: COMPLETED 1. DIAGNOSES Acute cholecystitis status post robotic assisted cholecystectomy 2. FUTURE APPOINTMENT(S): *To reschedule [facility] appointments call and use extension below. date/time clinic phone number 04/22/24 2:00 pm [facility] IND BORN S [phone] 08/25/24 10:30 am [facility]-PACT E4 PCP *This listing may be incomplete. Please refer to Appointment Mgmt.listing for any additional patient appointments 3. DISCHARGE MEDICATIONS: TO HELP YOU UNDERSTAND YOUR DRUG LIST ACTIVE ...means that you are presently taking these meds. SUSPENDED means that your prescription is active and in the mail order process. PENDING ..means that the medication has just been renewed, or, just ordered. HOLD .....means that the medication is active on your list, but will not be processed until pharmacy receives further instructions from you or your doctor to proceed with filling the prescription for delivery. NON-VA ...means you are getting the medication from somewhere besides the [place]. Active Outpatient Medications (including Supplies): Active Outpatient [...] REFLUX. TAKE 30 MINUTES PRIOR TO FOOD. Pending Outpatient Medications Status 1) OXYCODONE HCL 5MG TAB TAKE ONE TABLET BY MOUTH EVERY PENDING 6 HOURS NEEDED MAY CAUSE CONSTIPATION 8 Total Medications NEW MEDICATIONS (and indicatons): Oxycodone -acute pain control The following changes were made to the medications you were taking prior to this hospitalization: None These medications have been stopped during your hospitalization (and reason why): None At your next appointment, please remember to bring all of your medication bottles with you Medication Reconciliation: I have discussed active and pending medications with the patient and/or wild animal caretaker. I have made changes as appropriate................ .YES 4. DISCHARGE INTRUCTIONAL MATERIALS PAIN Some pain is to be expected after a surgical procedure. We recommend alternating between Acetaminophen (Tylenol) 1000mg OR Ibuprofen 600mg (if approved by your doctor) every 3 hours. If prescribed, use your narcotic pain medication for breakthrough pain. Do not drive while taking narcotic pain medication. Heat or ice may also be used to provide relief, but be careful not to burn yourself as this area is numb. Make sure to take pain medication with food. If prescribed, a narcotic such as Oxycodone/Acetaminophen (Percocet), Hydrocodone/Acetaminophen (Carmine), Codeine/Acetaminophe(Tyleno l #3) or any agent containing acetaminophen (Tylenol), do not use additional Tylenol. If using another NSAID, do not use additional Ibuprofen. If previously instructed by another physician not to use acetaminophen (Tylenol)or an NSAID (Ibuprofen), please refrain from using these medications. BOWEL FUNCTION It is important to keep your bowel movements soft and easy to pass. Eat a high fiber diet and take 1 tablespoon of Metamucil daily to help with this. You may also use stool softeners as needed. Drink at least 64 oz of non-caffeinated fluids daily. Narcotics cause constipation quickly, which can lead to increased pain and healing time, take Miralax as needed if you have not had a bowel movement in 48 hours. BLEEDING Some bleeding is common after a procedure. Please call our office if you notice any blood loss greater than cup of blood, blood clots larger than a quarter, or if blood is dripping out and not stopping. If you feel faint, lightheaded, and dizzy or like you will pass out, call 9-1-1 immediately. NAUSEA/VOMITING It is not uncommon to have nausea or vomiting after anesthesia. Taking pain medication on an empty stomach can cause nausea or vomiting. If you develop nausea or vomiting 24 hours after your procedure or cannot keep fluids down, call our office or go to the Emergency Room. FEVER/CHILLS If you develop any fever over 100.4 F or chills, please call our office. It is common to have a low-grade fever after a procedure (under 100.4 F), use of the fpec-rgz-hsiwxxr medications like Tylenol can help with this. ACTIVITY Do not drive while taking any narcotics. Do not lift anything over 10 lbs or strain for 2 weeks following surgery. Walk as much as possible to help prevent constipation. WOUND CARE Keep your incision(s) clean and dry. You may shower daily, letting soap and water run over your incisions(s). Pat dry. Do not scrub. If there is any drainage, you can cover the area with gauze to absorb this. Change this gauze daily, or as needed if it becomes saturated throughout the day. Do not apply any antibiotic ointments to this area. OTHER If you are unable to urinate for over 8 hours, call our office or go to the Emergency Room. If you are having skin breakdown or irritation, using a skin barrier cream (Calmoseptine) can provide relief and healing. Call [phone] ext. [phone] (Surgery I) if you have any additional questions. Specialist Information: Follow-up with your Primary Care Physician or Specialist or call [facility] Helpline: [phone] NOTE: If you are having feelings of Depression or Emotional Distress, or feel you just need to talk with someone, please call PRESS 1. /es/ Troy Luis MD Resident Physician, General Surgery Signed: 04/18/2024 09:36 /es/ JUMANA STROUD Staff Physician - General Surgery Cosigned: 04/27/2024 20:42 TROY LUIS [facility] Apr 18, 2024 08:10 AM NURSING INPATIENT NOTE: LOCAL TITLE: MSAES ACUTE INPATIENT NSG SHIFT ASSESSMENT STANDARD TITLE: NURSING INPATIENT NOTE DATE OF NOTE: APR 18, 2024@08:10 ENTRY DATE: APR 18, 2024@13:06:41 AUTHOR: IZAIAH HUDDLESTON COSIGNER: URGENCY: STATUS: COMPLETED Version 2.2 Charting in accordance with [place] APPROVED [place] STANDARD (MSAES) ACUTE INPATIENT/REHABILITATION NURSING ADMISSION SCREENING, ASSESSMENT, AND STANDARDS OF CARE ======== ASSESSMENT ======== ======== HANDOFF ======== Bedside report and handoff completed Safety check completed ======== PAIN ASSESSMENT ======== Patient's acceptable pain goal: 0 No pain Are you currently experiencing pain? Yes - DVPRS scale used to assess Location: back Defense and Veterans Pain Rating Scale (DVPRS): 6 Hard to ignore, avoid usual activities Pain Score: 6 ======== MASCORRO FALL SCALE & TIPS PROGRAM ======== Mascorro Fall Scale: The Mascorro Fall scale was performed and score was 35. This is indicative of moderate risk for falls. History of falling: immediate or within 3 months? No Secondary diagnosis: Yes Ambulatory aid: None/bedrest/nurse assist Intravenous therapy/Heparin lock: Yes Gait/Transferring: Normal/bed rest/immobile Mental Status: Oriented to own ability/knows own limitations Fall Tailoring Interventions for Patient Safety (TIPS) Fall TIPS initiated with patient: Yes Interventions: Communicate recent fall or risk of harm Fall TIPS reviewed with patient: Yes Interventions: Communicate recent fall or risk of harm ======== ENVIRONMENTAL SAFETY MANAGEMENT ======== Implemented safety standards of care: -[place] to unit & environment -Adequate room lighting -Bed in low and locked position -Call light within reach -Personal items within reach -Traffic path in room free of clutter -Non-slip footwear -Upper/half length side rails up for bed mobility -Sensory aids within reach -Encourage patient to utilize sensory support Additional safety measures: Close to nurses station Increased frequency of rounding ======== NEUROLOGICAL ======== Neurological Orientation: Oriented x4 Level of Consciousness (AVPU): Alert = Appears aware of and responsive to the environment on their own. Follows commands, opens eyes spontaneously, and tracks objects. ======== NEUROMUSCULAR/NEUROVASCULAR EXTREMITIES ASSESSMENT ======== Strength: Television Program Director Bilateral: Strong Upper Extremity Bilateral: Full strength Lower Extremity Bilateral: Full strength Sensation: Upper Extremity Sensation Bilateral: Intact Lower Extremity Sensation Bilateral: Intact Temperature: Upper Extremity Temperature Bilateral: Warm Lower Extremity Temperature Bilateral: Warm ======== CARDIOVASCULAR ======== Heart Sounds: Normal (S1S2) Heart Rate/Rhythm (without chiller tender): Regular Capillary Refill: All 4 extremities, less than or equal to 3 seconds. Peripheral Pulses: All 4 extremities, 3+ normal. Edema: None ======== RESPIRATORY ======== Respirations: Unlabored Pattern: Regular Breath Sounds Auscultated: Anterior and posterior Left Upper Lobe: Clear Right Upper Lobe: Clear Right Middle Lobe: Clear Left Lower Lobe: Clear Right Lower Lobe: Clear ======== GASTROINTESTINAL ======== Passing flatus Elimination: Continent Abdominal Description: Rounded Palpation: Soft, Non-tender Bowel Sounds: RUQ: Active LUQ: Active RLQ: Active LLQ: Active ======== GENITOURINARY ======== Elimination: Continent ======= INTEGUMENTARY/SKIN/WOUND - (INCLUDING FLO) SEE NOTE: VAAES SKIN INPECTION/ASSESSMENT ======= ======== ACTIVITIES OF DAILY LIVING ======== Hygiene ADLs: Hand Hygiene: Performed post toileting Performed pre meals/snacks Oral Care: Non-ventilator patient: Patient teeth brushed: Independently The [place] was educated that poor oral hygiene increases the risk of hospital acquired pneumonia and dental problems like gingivitis and tooth decay. was educated using their preferred method and verbalized understanding. Oral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 ARNETT III URGENCY: STATUS: COMPLETED SUBJECT: Case #: [id number] OPERATION REPORT Has ADDENDA DATE OF SURGERY/PROCEDURE: 04/17/2024 SURGICAL ATTENDING PHYSICIAN: Tomi Arnett M.D. SURGEON: Jaswinder Olvera M.D. RESIDENT SURGEON: Jaswinder Olvera M.D. HARBOR MASTER: Jakub Redd M.D. PREOPERATIVE DIAGNOSIS: Intractable biliary colic POSTOPERATIVE DIAGNOSIS: Chronic cholecystitis SURGERY/PROCEDURE PERFORMED: Laparoscopic robot-assisted cholecystectomy ANESTHESIA: GENERAL FINDINGS: Chronic inflammatory changes with omentum densely adhered to right upper quadrant and the gallbladder infundibulum INDICATIONS FOR SURGERY/PROCEDURE: DESCRIPTION OF SURGERY/PROCEDURE: Patient was taken to the operating room and placed supine on the table. Appropriate preoperative antibiotics were given and SCDs were placed for DVT prophylaxis. General anesthesia was induced. Patient was secured with 2 straps and a footboard. No Prajapati. The patient's abdomen was prepped and draped in sterile fashion. We insufflated the abdomen via Veress needle at Flores's point. We gained access to the abdomen using a robotic laparoscopic port above and to the right of the umbilicus using Optiview. On inspection of the abdomen we noted dense adhesions of omentum to the right upper quadrant and to the infundibulum of the gallbladder. We placed 2 additional robotic ports in the right upper quadrant and 1 in the left upper quadrant. Using a laparoscopic atraumatic grasper we were able to release some of the omentum from the right upper quadrant but not all. We next positioned the patient in reverse Trendelenberg and right side up and docked the robot. The gallbladder was retracted cephalad with caudiere forceps. Using a fenestrated grasper and hook cautery, the adherent omentum was dissected off the gallbladder. Next, we incised the peritoneum that was overlying the gallbladder, which revealed significant edema. This plane was carried laterally and up the lateral edge of the gallbladder, and also medially and up the medial edge. Using a [place] grasper and the robotic suction-weight reducing technician we reflected down the peritoneum, fat, and connective tissue off the hepatocystic triangle until we could identify only 2 structures going into the gallbladder. Next we elevated the bottom of the gallbladder from the cystic plate. Once we felt confident we had obtained the critical view of safety we clipped and transected the cystic artery and duct. We dissected the remainder of the gallbladder off the cystic plate and encountered some oozing from the cystic plate which we controlled with hook cautery. Before completely taking the gallbladder off, we irrigated and suction copiously. We took off the gallbladder and put it in a specimen bag. Before taking the specimen out of the abdomen, we undocked the robot and performed a laparoscopic TAP block bilaterally and a wound sweep. We removed the gallbladder which required enlarging the left upper quadrant port with a clamp. This port was in layers with vicryl for the fascia and monocryl for skin. The remainder ports wre closed with monocryl. All counts were correct. The patient was woken up from anesthesia. There were no complications. SPECIMENS: 1. Gallbladder SPONGE/INSTRUMENT COUNT: CORRECT PACKS/DRAINS/CATHETERS: NONE ESTIMATED BLOOD LOSS: 20 INTRAVENOUS FLUIDS: 1400 BLOOD PRODUCTS: NONE COMPLICATIONS: NONE IMPLANTS: NONE CONDITION AT DISCHARGE: Stable PATIENT DISPOSITION: Floor ATTENDING PRESENCE: [] Level A: Attending Performing the Operation. The supervising practitioner performs the case, but may be assisted by a resident. [x] Level B: Attending in Operating Room (OR), Scrubbed. The supervising practitioner is physically present in the operative or procedural room and is directly involved in the procedure. The resident performs major portions of the procedure. [] Level C: Attending in OR, Not Scrubbed. The supervising practitioner is physically present in the operative or procedural room. The supervising practitioner observes and provides direction. The resident performs the procedure. [] Level D: Attending in OR Suite, Immediately Available. The supervising practitioner is physically present in the operative or procedural suite and immediately available for resident supervision or consultation if needed. [] Level E: Emergency Care. Immediate care is necessary to preserve life or present serious impairment. The supervising practitioner has been contacted. [] Level F: Non-OR Procedure. Routine bedside and clinic procedure done in the OR. The supervising practitioner is identified. /cydney/ JASWINDER VILLAFUERTE MD RESIDENT PHYSICIAN, GENERAL SURGERY Signed: 04/17/2024 17:19 /cydney/ Tomi Arnett III, MD [facility] General Surgery Attending Cosigned: 04/20/2024 17:52 04/20/2024 ADDENDUM STATUS: COMPLETED I was present for the entire procedure and agree witht the above . /cydney/ Tomi Arnett III, MD FACS General Surgery Attending Signed: 04/20/2024 17:52 JASWINDER ASH [facility] Apr 17, 2024 12:17 PM SURGERY ATTENDING NOTE: LOCAL TITLE: ATTENDING SURGEON PREOPERATIVE STL STANDARD TITLE: SURGERY ATTENDING NOTE DATE OF NOTE: APR 17, 2024@12:17 ENTRY DATE: APR 17, 2024@12:17:37 AUTHOR: TOMI ARNETT I EXP COSIGNER: URGENCY: STATUS: COMPLETED Surgical H&P Date of Planned Procedure: Mar Surgical H&P Dated Mar reviewed on Mar Surgical H&P completed within 30 days of planned procedure:Yes Attending Surgeon Preoperative STL completed within 24 hours of procedure? Yes Changes noted to the H&P:NO I have seen and examined the patient and agree with the H&P, assessment and plan. YES Preoperative Findings/Diagnosis: biliary colic Plan/Procedure: Robotic cholecystectomy with possible intraoperative cholangiogram /cydney/ Tomi Arnett III, MD [facility] General Surgery Attending Signed: 04/17/2024 12:18 TOMI ARNETT III [facility] Apr 17, 2024 11:30 AM NURSING INPATIENT NOTE: LOCAL TITLE: [facility] ACUTE INPATIENT NSG SHIFT ASSESSMENT STANDARD TITLE: NURSING INPATIENT NOTE DATE OF NOTE: APR 17, 2024@11:30 ENTRY DATE: APR 17, 2024@11:30:36 AUTHOR: KD GASTELUM EXP COSIGNER: URGENCY: STATUS: COMPLETED Version 2.2 Charting in accordance with [facility] [employer] [place] STANDARD (MSAES) ACUTE INPATIENT/REHABILITATION NURSING ADMISSION SCREENING, ASSESSMENT, AND STANDARDS OF CARE ======== REASSESSMENT ======== ======== HANDOFF ======== Bedside report and handoff completed ======== PAIN ASSESSMENT ======== Patient's acceptable pain goal: 0 No pain Are you currently experiencing pain? No: Pain Score: 0 ======== MASCORRO FALL SCALE & TIPS PROGRAM ======== Mascorro Fall Scale: The Mascorro Fall scale was performed and score was 35. This is indicative of moderate risk for falls. History of falling: immediate or within 3 months? No Secondary diagnosis: Yes Ambulatory aid: None/bedrest/nurse assist Intravenous therapy/Heparin lock: Yes Gait/Transferring: Normal/bed rest/immobile Mental Status: Oriented to own ability/knows own limitations Fall Tailoring Interventions for Patient Safety (TIPS) Fall TIPS initiated with patient: Yes Interventions: IV assistance when walking Fall TIPS reviewed with patient: Yes Interventions: IV assistance when walking ======== ENVIRONMENTAL SAFETY MANAGEMENT ======== Implemented safety standards of care: -[place] to unit & environment -Adequate room lighting -Bed in low and locked position -Call light within reach -Personal items within reach -Traffic path in room free of clutter -Non-slip footwear -Upper/half length side rails up for bed mobility -Sensory aids within reach -Encourage patient to utilize sensory support ======== NEUROLOGICAL ======== Neurological Orientation: Oriented x4 Level of Consciousness (AVPU): Alert = Appears aware of and responsive to the environment on their own. Follows commands, opens eyes spontaneously, and tracks objects. Affect/behavior: Cooperative Calm Nick Agitation Sedation Scale (RASS): 0 Alert and calm ======== NEUROMUSCULAR/NEUROVASCULAR EXTREMITIES ASSESSMENT ======== Strength: Television Program Director Bilateral: Strong Upper Extremity Bilateral: Full strength Lower Extremity Bilateral: Full strength Sensation: Upper Extremity Sensation Bilateral: Intact Lower Extremity Sensation Bilateral: Intact Temperature: Upper Extremity Temperature Bilateral: Cool Lower Extremity Temperature Bilateral: Cool ======== CARDIOVASCULAR ======== Heart Sounds: Normal (S1S2) Capillary Refill: All 4 extremities, less than or equal to 3 seconds. Peripheral Pulses: All 4 extremities, 3+ normal. Edema: None ======== RESPIRATORY ======== Respirations: Unlabored Breath Sounds Auscultated: Anterior and posterior Left Upper Lobe: Clear Right Upper Lobe: Clear Right Middle Lobe: Clear Left Lower Lobe: Clear Right Lower Lobe: Clear ======== GASTROINTESTINAL ======== Elimination: Continent Abdominal Description: Rounded Bowel Sounds: RUQ: Active LUQ: Active RLQ: Active LLQ: Active ======== GENITOURINARY ======== Elimination: Continent ======= INTEGUMENTARY/SKIN/WOUND - (INCLUDING FLO) SEE NOTE: VAAES SKIN INPECTION/ASSESSMENT ======= ======== ACTIVITIES OF DAILY LIVING ======== Hygiene ADLs: Eating: Independent Assistive/adaptive devices: Other: NPO pending procedure Oral Care: Non-ventilator patient: Patient teeth brushed: Independently ----- The [place] was educated that poor oral hygiene increases the risk of hospital acquired pneumonia and dental problems like gingivitis and tooth decay. was educated using their preferred method and verbalized understanding. -------- ======== MOBILITY ======== Mobility Status: Independent: Able to stand and step without staff assistance Steady standing balance Gait: Steady ======== IV LINES ======== Peripheral IV: Line #1: Assessment: Location: Left, Antecubital Gauge: 20 Dressing Condition: Clean, dry, intact Site Condition: No redness, swelling, pain Line Status: ======== PSYCHOSOCIAL ======== Type of Emotional Support Provided: 1:1 discussion ======== ADULT EDUCATION ======== Updates to patient learning style: Demonstration Printed materials Verbal explanation Comment: patient left [facility]imm for surgery , will monitor upon return. /es/ Kd Gastelum RN REGISTERED NURSE Signed: 04/17/2024 11:35 KD GASTELUM [facility] Apr 17, 2024 07:13 AM SURGERY NOTE: LOCAL TITLE: GENERAL SURGERY NOTE STL STANDARD TITLE: SURGERY NOTE DATE OF NOTE: APR 17, 2024@07:13 ENTRY DATE: APR 17, 2024@07:13:23 AUTHOR: TROY LUIS COSIGNER: TOMI ARNETT III URGENCY: STATUS: COMPLETED GENERAL SURGERY NOTE STL Has ADDENDA GENERAL SURGERY I DAILY PROGRESS NOTE APR 17, 2024 PATIENT SUMMARY: 34-year-old MALE with PMH of depression, anxiety, MARY, GERD, MSK pain, migraines, TBI, and symptomatic cholelithiasis that is pending elective lap ying that presented to the ED with 1 day of worsening RUQ abdominal pain, nausea, emesis concerning for biliary cholic vs acute cholecystitis. CT A/P notes mild fat stranding adjacent the gallbladder but no wall thickening, gallbladder distention, or pericholecystic fluid to definitively suggest acute cholecystitis. It's largely unchanged from prior studies. His symptoms are likely 2/2 to biliary colic. Given the severeity of the associated pain, we will admit him to our service and plan for a lap vs robotic assisted cholecystectomy. Subjective: NAEON, pain improved this AM, planning for OR today. Objective: Vitals: Temp: 98.3 F [36.8 C] (04/17/2024 06:24) Pulse Ox: Measurement DT POx (L/MIN)(%) 04/17/2024 06:24 94 04/17/2024 00:17 96 04/16/2024 20:23 95 04/16/2024 18:39 96 HR: 82 (04/17/2024 06:24) RR: 18 (04/17/2024 06:24) BP: 107/70 (04/17/2024 06:24) PHYSICAL EXAM: GENERAL: No acute distress NEURO: Alert and oriented x4, moving all 4 extremities HEART: Normal rate, regular rhythm LUNGS: Normal work of breathing on room air ABDOMEN: Soft, non-distended, mild tenderness RUQ EXT: Warm and well-perfused LABS: BMP: SODIUM 141 mEq/L 04/16/2024 20:00 POTASSIUM 3.8 mEq/L 04/16/2024 20:00 CHLORIDE 105 mEq/L 04/16/2024 20:00 UREA NITROGEN 11.5 mg/dL 04/16/2024 20:00 CREATININE 1.21 mg/dL 04/16/2024 20:00 CALCIUM 9.2 mg/dL 04/16/2024 20:00 CARBON DIOXIDE 25 mEq/L 04/16/2024 20:00 GLUCOSE 99 mg/dL 04/16/2024 20:00 EGFR (CKD-EPI 2020) 80.1 04/16/2024 20:00 CBC: WBC 6.8 10*3/uL 04/16/2024 20:00 RBC 5.13 10*6/uL 04/16/2024 20:00 HGB 14.6 g/dL 04/16/2024 20:00 HCT 43.6 % 04/16/2024 20:00 MCV 85.0 fL 04/16/2024 20:00 MCH 28.5 pg 04/16/2024 20:00 MCHC 33.5 g/dL 04/16/2024 20:00 RDW 13.1 % 04/16/2024 20:00 PLT 192 10*3/uL 04/16/2024 20:00 MPV 9.4 fL 04/16/2024 20:00 NEUTROPHILS, AUTO % 61 % 04/16/2024 20:00 LYMPHOCYTES, AUTO % 26 % 04/16/2024 20:00 MONOCYTES, AUTO % 9 % 04/16/2024 20:00 EOSINOPHILS, AUTO % 4 % 04/16/2024 20:00 BASOPHILS, AUTO % 1 % 04/16/2024 20:00 NEUTROPHILS, ABSOLUTE 4.18 10*3/uL 04/16/2024 20:00 LYMPHOCYTES, ABSOLUTE 1.75 10*3/uL 04/16/2024 20:00 MONOCYTES, ABSOLUTE 0.59 10*3/uL 04/16/2024 20:00 EOSINOPHILS, ABSOLUTE 0.25 10*3/uL 04/16/2024 20:00 BASOPHILS, ABSOLUTE 0.04 10*3/uL 04/16/2024 20:00 INR: 1.1 INR (04/16/24 20:00) IMAGING: CXR Impression for CHEST PORTABLE, 03/11/23, case 168 Normal AP chest. READING PHYSICIAN: Dawson Gonzales -[id number] 03/11/2023 18:41 CDT [facility] [phone] (For Medical Practitioner Use Only) Attention Patients / Veterans: If you have questions or concerns about these test results, please contact your ordering provider or primary care team. KUB No data available for: ABDOMEN-KUB CT Date Procedure CPT Status Case # 03/25/2024 CT THORACIC SPINE W/O CONT [id number] Verified 3007 Acute fractures involving the superior L2 and L3 vertebral body endplates. Fracture planes do not involve the posterior vertebral body, and there is no retropulsion of fracture fragments. READING PHYSICIAN: Caio Rollins MD -[id number] 03/25/2024 18:30 PDT [facility] [phone] (For Medical Practitioner Use Only) Attention Patients / Veterans: If you have questions or concerns about these test results, please contact your ordering provider or primary care team. 04/16/2024 CT ABDOMEN AND PELVIS W/CONTRAST [id number] Verified [id number] Findings on this examination do not reliably confirm or exclude acute cholecystitis. The imaging exam of choice with the greatest accuracy for acute cholecystitis is a nuclear HIDA scan DIET: NPO (04/16/24) ACTIVE INPT MEDS: 1) OXYCODONE (IMMEDIATE RELEASE) UD TAB PO Q6H PRN 5MG 2) HYDROMORPHONE INJ,SOLN IVP Q2H PRN 0.25MG/0.125ML 3) ENOXAPARIN INJ SQ QDAILY 40MG/0.4ML 4) ACETAMINOPHEN TAB PO QID 1000MG 5) METHOCARBAMOL TAB PO QID PRN 750MG 6) ONDANSETRON TAB,ORAL DISINTEGRATING SL Q6H PRN 4MG 7) OMEPRAZOLE CAP,EC PO QAMAC 8) HYDROXYZINE HCL TAB PO Q8H PRN for anxiety 9) BUPROPION HCL 24HR TAB,SA (EXTENDED PO QPM GIVE AT 1630 PER MED 10) LACTATED RINGER'S INJ,SOLN IV START AT MIDNIGHT when NPO starts Assessment and Plan: 34-year-old MALE with PMH of depression, anxiety, MARY, GERD, MSK pain, migraines, TBI, and symptomatic cholelithiasis that is pending elective lap ying that presented to the ED with 1 day of worsening RUQ abdominal pain, nausea, emesis concerning for biliary cholic vs acute cholecystitis. CT A/P notes mild fat stranding adjacent the gallbladder but no wall thickening, gallbladder distention, or pericholecystic fluid to definitively suggest acute cholecystitis. It's largely unchanged from prior studies. His symptoms are likely 2/2 to biliary colic. Given the severeity of the associated pain, we will admit him to our service and plan for a lap vs robotic assisted cholecystectomy. Plan: - OR today for robotic-assisted cholecystectomy /es/ Troy Luis MD Resident Physician, General Surgery Signed: 04/17/2024 07:19 /cydney/ Tomi Arnett III, MD [facility] General Surgery Attending Cosigned: 04/17/2024 12:18 04/17/2024 ADDENDUM STATUS: COMPLETED The patient was seen and examined on: 04/17/24 I have examined the patient with the resident. I have discussed the patient with the resident team and I agree with the above. I have reviewed the patient's prior notes, pertinent labs and imaging reports, and personally reviewed relevant imaging. 34 year-old male with intractible biliary colic. We discussed laparoscopic cholecystectomy along with alternatives, benefits and risks to include but not limited to: bleeding, infection, pain, scar, numbness, wound complication, damage to surrounding structures not limited to stomach/bowel/liver/bile ducts, biliary leak, conversion to open, need for drain, and need for further procedures. They reported understanding and wished to proceed. Will do robotic cholecystectomy today. /es/ Tomi Arnett III, MD [facility] General Surgery Attending Signed: 04/17/2024 12:19 TOBYTROY MORIN [facility] Apr 17, 2024 02:45 AM NURSING INPATIENT NOTE: LOCAL TITLE: [facility] ACUTE INPATIENT NSG SHIFT ASSESSMENT STANDARD TITLE: NURSING INPATIENT NOTE DATE OF NOTE: APR 17, 2024@02:45 ENTRY DATE: APR 17, 2024@02:45:53 AUTHOR: YUVAL MILLER COSIGNER: URGENCY: STATUS: COMPLETED Version 2.2 Charting in accordance with [facility] [employer] [place] STANDARD (MSAES) ACUTE INPATIENT/REHABILITATION NURSING ADMISSION SCREENING, ASSESSMENT, AND STANDARDS OF CARE ======== REASSESSMENT ======== ======== HANDOFF ======== Safety check completed ======== ENVIRONMENTAL SAFETY MANAGEMENT ======== Implemented safety standards of care: -[place] to unit & environment -Adequate room lighting -Bed in low and locked position -Call light within reach -Personal items within reach -Traffic path in room free of clutter -Non-slip footwear -Upper/half length side rails up for bed mobility -Sensory aids within reach -Encourage patient to utilize sensory support ======== RESPIRATORY ======== Respirations: Unlabored Pattern: Regular ======= INTEGUMENTARY/SKIN/WOUND - (INCLUDING FLO) SEE NOTE: VAAES SKIN INPECTION/ASSESSMENT ======= /cydney/ SAM MILLER RN REGISTERED NURSE Signed: 04/17/2024 02:46 YUVAL MILLER [facility] Apr 17, 2024 01:23 AM NURSING INPATIENT NOTE: LOCAL TITLE: [facility] ACUTE INPATIENT NSG SHIFT ASSESSMENT STANDARD TITLE: NURSING INPATIENT NOTE DATE OF NOTE: APR 17, 2024@01:23 ENTRY DATE: APR 17, 2024@01:23:58 AUTHOR: YUVAL MILLER COSIGNER: URGENCY: STATUS: COMPLETED Version 2.2 Charting in accordance with [place] [employer] [place] STANDARD (VAAES) ACUTE INPATIENT/REHABILITATION NURSING ADMISSION SCREENING, ASSESSMENT, AND STANDARDS OF CARE ======== ASSESSMENT ======== ======== HANDOFF ======== Bedside report and handoff completed ======== PAIN ASSESSMENT ======== Patient's acceptable pain goal: 1 Hardly notice pain Are you currently experiencing pain? No: Pain Score: 0 ======== MASCORRO FALL SCALE & TIPS PROGRAM ======== Mascorro Fall Scale: The Mascorro Fall scale was performed and score was 35. This is indicative of moderate risk for falls. History of falling: immediate or within 3 months? No Secondary diagnosis: Yes Ambulatory aid: None/bedrest/nurse assist Intravenous therapy/Heparin lock: Yes Gait/Transferring: Normal/bed rest/immobile Mental Status: Oriented to own ability/knows own limitations ======== ENVIRONMENTAL SAFETY MANAGEMENT ======== Implemented safety standards of care: -[place] to unit & environment -Adequate room lighting -Bed in low and locked position -Call light within reach -Personal items within reach -Traffic path in room free of clutter -Non-slip footwear -Upper/half length side rails up for bed mobility -Sensory aids within reach -Encourage patient to utilize sensory support ======== NEUROLOGICAL ======== Neurological Orientation: Oriented x4 Level of Consciousness (AVPU): Alert = Appears aware of and responsive to the environment on their own. Follows commands, opens eyes spontaneously, and tracks objects. Affect/behavior: Cooperative Calm Nick Agitation Sedation Scale (RASS): 0 Alert and calm ======== NEUROMUSCULAR/NEUROVASCULAR EXTREMITIES ASSESSMENT ======== Strength: Television Program Director Bilateral: Strong Upper Extremity Bilateral: Full strength Lower Extremity Bilateral: Full strength Sensation: Upper Extremity Sensation Bilateral: Intact Lower Extremity Sensation Bilateral: Intact Temperature: Upper Extremity Temperature Bilateral: Warm Lower Extremity Temperature Bilateral: Warm ======== CARDIOVASCULAR ======== Heart Sounds: Normal (S1S2) Heart Rate/Rhythm (without chiller tender): Regular Capillary Refill: All 4 extremities, less than or equal to 3 seconds. ======== RESPIRATORY ======== Respirations: Unlabored Pattern: Regular Breath Sounds Auscultated: Anterior and posterior Left Upper Lobe: Clear Right Upper Lobe: Clear Right Middle Lobe: Clear Left Lower Lobe: Clear Right Lower Lobe: Clear ======== GASTROINTESTINAL ======== Elimination: Continent ======== GENITOURINARY ======== Elimination: Continent ======= INTEGUMENTARY/SKIN/WOUND - (INCLUDING FLO) SEE NOTE: VAAES SKIN INPECTION/ASSESSMENT ======= ======== ACTIVITIES OF DAILY LIVING ======== Hygiene ADLs: Oral Care: Non-ventilator patient: Patient teeth brushed: Independently ======== MOBILITY ======== Mobility Status: Independent: Able to stand and step without staff assistance Gait: Steady ======== IV LINES ======== Peripheral IV: Line #1: Assessment: Location: Left, Antecubital Gauge: 20 Dressing Condition: Clean, dry, intact Transparent dressing Site Condition: No redness, swelling, pain Line Status: /cydney/ SAM MILLER RN REGISTERED NURSE Signed: 04/17/2024 01:27 YUVAL MILLER [facility] Apr 17, 2024 01:21 AM NURSING NOTE: LOCAL TITLE: [facility] PERSONAL EFFECTS STL STANDARD TITLE: NURSING NOTE DATE OF NOTE: APR 17, 2024@01:21 ENTRY DATE: APR 17, 2024@01:21:23 AUTHOR: YUVAL MILLER EXP COSIGNER: URGENCY: STATUS: COMPLETED PERSONAL EFFECTS Hazardous Check: Advised of prohibited hazardous items, Denies hazardous items Medication Check: Denies medication on person Patient Valuables Observed: personal bag, headphones with case, cellphone with general studies program chair, IPAD, nesbitt shoes, blue warm up suit, back brace, /cydney/ SAM MILLER RN REGISTERED NURSE Signed: 04/17/2024 01:23 YUVAL MILLER [facility] Apr 17, 2024 01:20 AM NURSING NOTE: LOCAL TITLE: [facility] SKIN INSPECTION/ASSESSMENT STANDARD TITLE: NURSING NOTE DATE OF NOTE: APR 17, 2024@01:20 ENTRY DATE: APR 17, 2024@01:20:25 AUTHOR: YUVAL MILLER EXP COSIGNER: URGENCY: STATUS: COMPLETED INITIAL SKIN INSPECTION/ASSESSMENT SKIN INSPECTION: Skin Color: Usual for ethnicity Skin Temperature: Warm Skin Moisture: Normal Skin Turgor: Elastic (normal/immediate) Flo Skin Assessment: The patient's Flo Scale Score is 22. The patient is considered not at risk for development of pressure ulcers/injuries. Sensory perception -- ability to respond meaningfully to pressure-related discomfort No impairment. Moisture -- degree to which skin is exposed to moisture Rarely moist. Activity -- ability to change and control body position Walks frequently. Mobility -- ability to change and control body position No limitation. Nutrition -- usual food intake patterns Adequate. Friction and shear No apparent problem. INTERVENTIONS: The pressure injury interventions were not needed - patient/resident is not at risk. RISK FACTORS THAT INCREASE RISK FOR DEVELOPING PRESSURE INJURIES The patient/resident does not have any additional risk factors. SKIN INTEGRITY: Intact /da MILLER RN REGISTERED NURSE Signed: 04/17/2024 01:21 YUVAL MILLER [facility] Apr 17, 2024 12:17 AM NURSING INPATIENT NOTE: LOCAL TITLE: [facility] NURSING FREQUENT DOCUMENTATION STANDARD TITLE: NURSING INPATIENT NOTE DATE OF NOTE: APR 17, 2024@00:17 ENTRY DATE: APR 17, 2024@00:17:59 AUTHOR: JO ANN HINDS: URGENCY: STATUS: COMPLETED Version 2.4 Charting in accordance with [place] [employer]ED [employer] [place] STANDARD (MSAES) ACUTE INPATIENT/REHABILITATION NURSING ADMISSION SCREENING, ASSESSMENT, AND STANDARDS OF CARE ======== ACTIVITIES OF DAILY LIVING ======== Hygiene ADLs: Dressing: Upper Body: Independent Lower Body: Independent Eating: Independent Hand Hygiene: Performed post toileting Performed pre meals/snacks Oral Care: Non-ventilator patient: Patient teeth brushed: Independently The [place] was educated that poor oral hygiene increases the risk of hospital acquired pneumonia and dental problems like gingivitis and tooth decay. [place] was educated using their preferred method and verbalized understanding. Pericare: Soap and water Independent Personal Care: Independent Toileting: Independent ========= ACTIVITY/MOBILIZATION ========= Mobility Status: Independent: Able to stand and step without staff assistance Steady standing balance Mobilization Tolerance: Tolerates well Gait: [facility] Highest Level of Mobility achieved this shift: 6 - Walked 10 steps or more (walked to restroom) ======== ENVIRONMENTAL SAFETY MANAGEMENT ======== Implemented safety standards of care: -[place] to unit & environment -Adequate room lighting -Bed in low and locked position -Call light within reach -Personal items within reach -Traffic path in room free of clutter -Non-slip footwear -Upper/half length side rails up for bed mobility -Sensory aids within reach -Encourage patient to utilize sensory support ======== GASTROINTESTINAL ======== No bowel movement reported by patient Elimination: ======== GENITOURINARY ======== Elimination: Continent /es/ JO ANN HINDS CNA ANGLE SHEAR OPERATOR Signed: 04/17/2024 00:19 JO ANN HINDS [facility] Apr 16, 2024 08:23 PM NURSING INPATIENT NOTE: LOCAL TITLE: [facility] NURSING FREQUENT DOCUMENTATION STANDARD TITLE: NURSING INPATIENT NOTE DATE OF NOTE: APR 16, 2024@20:23 ENTRY DATE: APR 16, 2024@20:23:48 AUTHOR: YUVAL MILLER COSIGNER: URGENCY: STATUS: COMPLETED Version 2.4 Charting in accordance with [place] [employer] [place] STANDARD (MSAES) ACUTE INPATIENT/REHABILITATION NURSING ADMISSION SCREENING, ASSESSMENT, AND STANDARDS OF CARE ======== NATIONAL EARLY WARNING SCORE (NEWS) ======== The following vital measurements were used to complete the NEWS. Measurement DT TEMP PULSE RESP BP POx F(C) (L/MIN)(%) 04/16/2024 20:23 98.2(36.8) 77 18 123/69 95 The NEWS total is 1. 1. Temperature (C/F): Score = 0 36.1 - 38.0 C (96.9 - 100.4 F) 2. Pulse: Score = 0 51-90 3. Respirations: Score = 0 12-20 4. Blood Pressure (Only Systolic BP, mmHg): Score = 0 111-219 5. Pulse Oximetry: Score = 1 94% - 95% 6. Supplemental oxygen in use: Score = 0 No 7. AVPU: Score = 0 Alert /es/ SAM MILLER RN REGISTERED NURSE Signed: 04/16/2024 20:24 YUVAL MILLER [facility] Apr 16, 2024 07:28 PM RESPIRATORY THERAPY CONSULT: LOCAL TITLE: RESPIRATORY THERAPY CONSULT STL STANDARD TITLE: RESPIRATORY THERAPY CONSULT DATE OF NOTE: APR 16, 2024@19:28 ENTRY DATE: APR 16, 2024@19:29:19 AUTHOR: RANDALL FERGUSON EXP COSIGNER: URGENCY: STATUS: COMPLETED The patient was consulted about wearing the hospital CPAP and chose to skip wearing it for the night. /cydney/ Randall Ferguson CLERK GENERAL OFFICE Registered Respiratory Therapist Signed: 04/16/2024 19:30 RANDALL FERGUSON [facility] Apr 16, 2024 07:21 PM NURSING TREATMENT PLAN NOTE: LOCAL TITLE: [facility] PLAN OF CARE STANDARD TITLE: NURSING TREATMENT PLAN NOTE DATE OF NOTE: APR 16, 2024@19:21 ENTRY DATE: APR 16, 2024@19:21:34 AUTHOR: IZAIAH HUDDLESTON EXP COSIGNER: URGENCY: STATUS: COMPLETED [facility] PLAN OF CARE Has ADDENDA Plan of Care and Discharge Plan (nurse) TREATMENT PLAN Significant other involved in treatment plan and discharge planning Yes Patient involved in making decisions about their care, treatment and plan for discharge Yes Date: NURSING DIAGNOSIS: Injury, Actual/Potential Goal: *Prior to discharge, patient will:--Remains free from injury or sustains no new injury., --Verbalizes and demonstrates actions to prevent injury. Interventions: --Assess for changes in mental, physiological, and cognative status., --Assess and provide for comfort(including pain, sleep, hydration, nutrition) q 2 hours and PRN., --Check patient for incontinence and need for toileting q 2 hours and PRN., --Assess alternatives for use of restraints (decrease stimulation, diversion, sitter, place in quite area). Interventions:(Environment) --Bed locked and in low position at all times., --Side rails up if indicated., --Call light, water, and personal care items within easy reach., --Urinal within easy reach., --Adequate lighting provided., --Room and hallway kept free of clutter and obsticles. Interventions:(Patient Factors)--Oriented to surroundings., --Nurse call system call system explained with return demonstration., --Assistive devices within reach (glasses, hearing aids, walker), --Patient encouraged to wear non-skid footwear., --Patient encouraged to call for assistance. Interventions:(Communicatio n)--Place ID band with orange dot on patient's wrist., --Note fall risk status during nursing handoff communication and castro pass., --Indicate fall status on caregiver assignment sheet., --Update fall risk assessment score upon patient condition change, transfer, 30 day increments and post fall. Care plan status: Continued Progress toward goals documented continuously through progress notes Patient Education Instruct about: /cydney/ IZAIAH HUDDLESTON RN Registered Nurse Signed: 04/16/2024 19:24 04/17/2024 ADDENDUM STATUS: COMPLETED The Nursing Care Plan has been reviewed. Progress on the Goals/Outcomes is as follows: I have reviewed this plan of care and will update changes as they occur during my shift. Discharge Planning: Assessment of patient/family's ability to manage care requirement post-discharge: GOOD Need identified at this time for referrals/resources post-discharge: RUFINA /cydney/ SAM MILLER RN REGISTERED NURSE Signed: 04/17/2024 01:28 IZAIAH HUDDLESTON [facility] Apr 16, 2024 07:13 PM NURSING NOTE: LOCAL TITLE: [facility] SKIN INSPECTION/ASSESSMENT STANDARD TITLE: NURSING NOTE DATE OF NOTE: APR 16, 2024@19:13 ENTRY DATE: APR 16, 2024@19:17:41 AUTHOR: IZAIAH HUDDLESTON EXP COSIGNER: URGENCY: STATUS: COMPLETED INITIAL SKIN INSPECTION/ASSESSMENT SKIN INSPECTION: Skin Color: Usual for ethnicity Skin Temperature: Warm Skin Moisture: Normal Skin Turgor: Elastic (normal/immediate) Flo Skin Assessment: The patient's Flo Scale Score is 23. The patient is considered not at risk for development of pressure ulcers/injuries. Sensory perception -- ability to respond meaningfully to pressure-related discomfort No impairment. Moisture -- degree to which skin is exposed to moisture Rarely moist. Activity -- ability to change and control body position Walks frequently. Mobility -- ability to change and control body position No limitation. Nutrition -- usual food intake patterns Excellent. Friction and shear No apparent problem. INTERVENTIONS: The pressure injury interventions were not needed - patient/resident is not at risk. RISK FACTORS THAT INCREASE RISK FOR DEVELOPING PRESSURE INJURIES The patient/resident does not have any additional risk factors. SKIN ALTERATIONS: Pressure Ulcer/Injury Documentation from the past year: No data available SKIN ALTERATIONS: Wound Documentation from the past year: No data available for: Skin Integrity - Wound Skin Integrity - Wound Second Skin Integrity - Wound Third Skin Integrity - Wound Fourth Skin Integrity - Wound Fifth Skin Integrity - Wound Additional SKIN INTEGRITY: Intact /es/ IZAIAH HUDDLESTON RN Registered Nurse Signed: 04/16/2024 19:19 IZAIAH HUDDLESTON [facility] Apr 16, 2024 06:57 PM NURSING INPATIENT NOTE: LOCAL TITLE: [facility] ACUTE INPATIENT NSG SHIFT ASSESSMENT STANDARD TITLE: NURSING INPATIENT NOTE DATE OF NOTE: APR 16, 2024@18:57 ENTRY DATE: APR 16, 2024@18:57:43 AUTHOR: IZAIAH HUDDLESTON EXP COSIGNER: URGENCY: STATUS: COMPLETED Version 2.2 Charting in accordance with [facility] [employer] STANDARD (MSAES) ACUTE INPATIENT/REHABILITATION NURSING ADMISSION SCREENING, ASSESSMENT, AND STANDARDS OF CARE ======== ASSESSMENT ======== ======== MASCORRO FALL SCALE & TIPS PROGRAM ======== Mascorro Fall Scale: The Mascorro Fall scale was performed and score was 35. This is indicative of moderate risk for falls. History of falling: immediate or within 3 months? No Secondary diagnosis: Yes Ambulatory aid: None/bedrest/nurse assist Intravenous therapy/Heparin lock: Yes Gait/Transferring: Normal/bed rest/immobile Mental Status: Oriented to own ability/knows own limitations Fall Tailoring Interventions for Patient Safety (TIPS) Fall TIPS initiated with patient: Yes Interventions: Communicate recent fall or risk of harm Fall TIPS reviewed with patient: Yes Interventions: Communicate recent fall or risk of harm ======== ENVIRONMENTAL SAFETY MANAGEMENT ======== Implemented safety standards of care: -[place] to unit & environment -Adequate room lighting -Bed in low and locked position -Call light within reach -Personal items within reach -Traffic path in room free of clutter -Non-slip footwear -Upper/half length side rails up for bed mobility -Sensory aids within reach -Encourage patient to utilize sensory support Additional safety measures: Close to nurses station Increased frequency of rounding ======== NEUROLOGICAL ======== Neurological Orientation: Oriented x4 Level of Consciousness (AVPU): Alert = Appears aware of and responsive to the environment on their own. Follows commands, opens eyes spontaneously, and tracks objects. ======== NEUROMUSCULAR/NEUROVASCULAR EXTREMITIES ASSESSMENT ======== Strength: Television Program Director Bilateral: Strong Upper Extremity Bilateral: Full strength Lower Extremity Bilateral: Full strength Sensation: Upper Extremity Sensation Bilateral: Intact Lower Extremity Sensation Bilateral: Intact Temperature: Upper Extremity Temperature Bilateral: Warm Lower Extremity Temperature Bilateral: Warm ======== CARDIOVASCULAR ======== Heart Sounds: Normal (S1S2) Heart Rate/Rhythm (without chiller tender): Regular Capillary Refill: All 4 extremities, less than or equal to 3 seconds. Peripheral Pulses: All 4 extremities, 3+ normal. Edema: None ======== RESPIRATORY ======== Respirations: Unlabored Pattern: Regular Breath Sounds Auscultated: Anterior and posterior Left Upper Lobe: Clear Right Upper Lobe: Clear Right Middle Lobe: Clear Left Lower Lobe: Clear Right Lower Lobe: Clear ======== GASTROINTESTINAL ======== Passing flatus Elimination: Continent Abdominal Description: Rounded Palpation: Soft, Non-tender Bowel Sounds: RUQ: Active LUQ: Active RLQ: Active LLQ: Active ======== GENITOURINARY ======== Elimination: Continent ======= INTEGUMENTARY/SKIN/WOUND - (INCLUDING FLO) SEE NOTE: VAAES SKIN INPECTION/ASSESSMENT ======= ======== ACTIVITIES OF DAILY LIVING ======== Hygiene ADLs: Foot Care: Inspection Hand Hygiene: Performed post toileting Performed pre meals/snacks Oral Care: Non-ventilator patient: Patient teeth brushed: Independently The [place] was educated that poor oral hygiene increases the risk of hospital acquired pneumonia and dental problems like gingivitis and tooth decay. was educated using their preferred method and verbalized understanding. Oral Mucositis Scale: Oral mucositis (clinical exam): Grade 1 = Erythema of the mucosa Oral mucositis (functional/symptomatic): Grade 1 = Minimal symptoms, normal diet ======== MOBILITY ======== Mobility Status: Independent: Able to stand and step without staff assistance Steady standing balance Gait: Steady ======== IV LINES ======== Peripheral IV: Present on admission: Line #1: Location: Left, Antecubital Gauge: 20 ======== PSYCHOSOCIAL ======== Type of Emotional Support Provided: 1:1 discussion, Ventilation of feelings encouraged /es/ IZAIAH HUDDLESTON RN Registered Nurse Signed: 04/16/2024 19:10 IZAIAH HUDDLESTON [facility] Apr 16, 2024 06:20 PM NURSING ADMISSION EVALUATION NOTE: LOCAL TITLE: [facility] ACUTE INPATIENT NSG ADMISSION SCREEN STANDARD TITLE: NURSING ADMISSION EVALUATION NOTE DATE OF NOTE: APR 16, 2024@18:20 ENTRY DATE: APR 16, 2024@18:21:43 AUTHOR: IZAIAH HUDDLESTON EXP COSIGNER: URGENCY: STATUS: COMPLETED ======= ALLERGY/ADVERSE DRUG REACTION (ADR) REVIEW (MRT5) ======= FACILITY ALLERGY/ADR -------- [facility] No Known Allergies Allergy/Adverse Drug Reaction Review to be conducted by: Nurse: Results of Allergy/ADR Review: Allergy/Adverse Drug Reaction list confirmed. ====== MEDICATION REVIEW (MRR1) ====== Did patient bring medication(s) from home? No Medication Review conducted by Nurse Results of Medication Review: Active Medication List: INCLUDED IN THIS LIST: Alphabetical list of active outpatient prescriptions dispensed from this [place] (local) and dispensed from another [place] or [facility] facility (remote) as well as inpatient orders (local pending and active), local clinic medications, locally documented non-VA medications, and local prescriptions that have or been discontinued in the past 90 days. Non-VA Meds Last Documented On: Data not found NOTE The display of VA prescriptions dispensed from another [place] or [facility] facility (remote) is limited to active outpatient prescription entries matched to National Drug File at the originating site and may not include some items such as investigational drugs, compounds, etc. NOT INCLUDED IN THIS LIST: Medications self-entered by the patient into personal health records (i.e. Cyphoma) are NOT included in this list. Non-VA medications documented outside this [place], remote inpatient orders (regardless of status) and remote clinic medications are NOT included in this list. The patient and provider must always discuss medications the patient is taking, regardless of where the medication was dispensed or obtained. Remote ACETAMINOPHEN 325MG TAB TAKE ONE TABLET BY MOUTH THREE TIMES A DAY FOR PAIN Last Filled: 01/22/24 (Active at [facility] [place]) Rx Expiration Date: 05/14/24 Days Supply: 90 INPT ACETAMINOPHEN 500MG TAB (Status=Active) 1000MG BY MOUTH FOUR TIMES A DAY Indication: FOR PAIN BCMA ORDER LAST ACTION: 04/16/24 18:17 REFUSED OUTPT BUPROPION HCL 150MG 24HR SA TAB (Status = Active) TAKE ONE TABLET BY MOUTH EVERY MORNING FOR DEPRESSION SWALLOW WHOLE - DO NOT CRUSH OR CHEW. Rx# [id number] Last Released: 01/27/24 Qty/Days Supply: 90/90 Rx Expiration Date: 04/22/24 Refills Remainin Indication: FOR DEPRESSION INPT BUPROPION HCL 150MG 24HR SA TAB (Status=Discontinued) 150MG BY MOUTH EVERY MORNING Indication: FOR DEPRESSION INPT BUPROPION HCL 150MG 24HR SA TAB (Status=Pending) 150MG BY MOUTH [id number]@AC SUPPER Indication: FOR DEPRESSION CLIN CEFAZOLIN 2GM/BAG INJ,SOLN (Status=Discontinued) CEFAZOLIN 2GM/BAG INJ,SOLN 100 ml IV INFUSE OVER 30 Minutes ONE-TIME TO BE GIVEN IN O.R. ONLY ON Mar, time pending Indication: FOR SURGICAL PROPHYLAXIS <AUTO DC> OUTPT CHLORHEXIDINE GLUCONATE 4% TOP LIQUID (Status = ) APPLY MODERATE AMOUNT TO AFFECTED AREA(S) DIRECTED FOR SKIN DISINFECTION (TOPICAL USE ONLY) AVOID CONTACT WITH EYES. WASH BODY WITH SOAP IN THE SHOWER FROM NECK DOWN (NOT ON FACE OR PRIVATES) THE NIGHT BEFORE SURGERY AND THE MORNING OF SURGERY. Rx# [id number] Last Released: 02/11/24 Qty/Days Supply: 120/2 Rx Expiration Date: 03/08/24 Refills Remainin Indication: FOR SKIN DISINFECTION Remote CHOLECALCIFEROL 50MCG (2,000UNIT) TAB TAKE ONE TABLET BY MOUTH ONE TIME EACH DAY FOR VITAMIN D DEFICIENCY Last Filled: 01/22/24 (Active at [facility]) Rx Expiration Date: 05/14/24 Days Supply: 90 Remote DICLOFENAC NA 1% GEL,TOP APPLY 4 GRAMS TOPICALLY THREE TIMES A DAY FOR PAIN AND INFLAMMATION TO AFFECTED JOINT (2 GRAMS TO BACK AND 4 GRAMS TO KNEE(S)) (MEASURE DOSE USING SUPPLIED DOSING CARD) Last Filled: 01/22/24 (Active at [facility]) Rx Expiration Date: 05/14/24 Days Supply: 30 Remote DICYCLOMINE HCL 20MG TAB TAKE ONE TABLET BY MOUTH THREE TIMES A DAY FOR IRRITABLE COLON Last Filled: 01/22/24 (Active at [facility]) Rx Expiration Date: 05/14/24 Days Supply: 90 OUTPT DOCUSATE NA 100MG CAP (Status = Active) TAKE TWO CAPSULES BY MOUTH TWICE DAILY NEEDED FOR SOFTENING STOOL HOLD FOR LOOSE STOOL/DIARRHEA. Rx# [id number] Last Released: 03/25/24 Qty/Days Supply: Rx Expiration Date: 04/24/24 Refills Remainin Indication: FOR SOFTENING STOOL INPT ENOXAPARIN 40MG/0.4ML INJ SYRINGE 0.4ML (Status=Active) 40MG/0.4ML UNDER THE SKIN QDAILY Indication: FOR ANTICOAGULATION Remote FAMOTIDINE 20MG TAB TAKE ONE TABLET BY MOUTH TWICE A DAY FOR HEARTBURN Last Filled: 01/22/24 (Active at [facility]) Rx Expiration Date: 05/14/24 Days Supply: 90 Remote FLUTICASONE PROPIONATE 50MCG/SPRAY SOLN,NASAL,16GM USE 1 SPRAY EACH NOSTRIL ONE TIME EACH DAY FOR CONGESTION Last Filled: 01/22/24 (Active at [facility]) Rx Expiration Date: 05/14/24 Days Supply: 30 Remote FOLIC ACID 1MG TAB TAKE ONE TABLET BY MOUTH ONE TIME EACH DAY FOR ANEMIA FROM INADEQUATE FOLIC ACID Last Filled: 01/22/24 (Active at [facility]) Rx Expiration Date: 05/14/24 Days Supply: 90 OUTPT HYDROCODONE 5MG/ACETAMINOPHEN 325MG TAB (Status = Active) TAKE 1 TABLET BY MOUTH EVERY 6 HOURS NEEDED FOR SEVERE PAIN CAUTION: DO NOT EXCEED 4000MG PER DAY ACETAMINOPHEN (APAP) FROM ALL MEDS. Rx# [id number] Last Released: 03/25/24 Qty/Days Supply: 15/04 Rx Expiration Date: 04/24/24 Refills Remainin Indication: FOR SEVERE PAIN CLIN HYDROMORPHONE HCL 2MG/ML INJ 1ML (Status=Discontinued) 1MG/0.5ML IVP ONE-TIME STAT (FOR E.R. ADMINISTRATION ONLY) Indication: FOR SEVERE PAIN <AUTO DC> CLIN HYDROMORPHONE HCL 2MG/ML INJ 1ML (Status=Discontinued) 0.5MG/0.25ML IVP ONE-TIME STAT (FOR E.R. ADMINISTRATION ONLY) Indication: FOR SEVERE PAIN <AUTO DC> CLIN HYDROMORPHONE HCL 2MG/ML INJ 1ML (Status=Discontinued) 1MG/0.5ML IVP ONE-TIME STAT (FOR E.R. ADMINISTRATION ONLY) Indication: FOR SEVERE PAIN <AUTO DC> INPT HYDROMORPHONE HCL 2MG/ML INJ 1ML (Status=Active) 0.25MG/0.125ML IVP EVERY TWO HOURS NEEDED 3rd line for pain Indication: FOR SEVERE PAIN Remote HYDROXYZINE HCL 10MG TAB TAKE ONE TABLET BY MOUTH THREE TIMES A DAY FOR ANXIETY Last Filled: 01/22/24 (Active at [facility]) Rx Expiration Date: 05/14/24 Days Supply: 90 INPT HYDROXYZINE HCL 10MG TAB (Status=Pending) 10MG BY MOUTH NEEDED Can have up to 50 mg, 4 times daily for anxiety. Home medication Indication: FOR ANXIETY OUTPT IBUPROFEN 600MG TAB (Status = Active) TAKE ONE TABLET BY MOUTH FOUR TIMES A DAY NEEDED FOR PAIN TAKE WITH FOOD. Rx# [id number] Last Released: 03/25/24 Qty/Days Supply: 100 Rx Expiration Date: 04/24/24 Refills Remainin Indication: FOR PAIN INPT LACTATED RINGER'S INJ,SOLN (Status=Discontinued) LACTATED RINGER'S INJ,SOLN 1000 ml IV 75 ml/hr with total volume 1L Start with NPO order at 00:01 on 04/17. Indication: FOR VOLUME REPLACEMENT INPT LACTATED RINGER'S INJ,SOLN (Status=Active) Change LACTATED RINGER'S INJ,SOLN 1000 ml IV 75 ml/hr@0 START AT MIDNIGHT when NPO starts Indication: FOR VOLUME REPLACEMENT Remote MAGNESIUM OXIDE 420MG TAB TAKE ONE TABLET BY MOUTH ONE TIME EACH DAY FOR MAGNESIUM SUPPLEMENTATION Last Filled: 01/22/24 (Active at [facility]) Rx Expiration Date: 05/14/24 Days Supply: 90 OUTPT METHOCARBAMOL 750MG TAB (Status = Active) TAKE 1 TABLET BY MOUTH FOUR TIMES A DAY NEEDED FOR MUSCLE SPASM Rx# [id number] Last Released: 03/25/24 Qty/Days Supply: 30 Rx Expiration Date: 04/24/24 Refills Remainin Indication: FOR MUSCLE SPASM INPT METHOCARBAMOL 750MG TAB (Status=Active) 750MG BY MOUTH FOUR TIMES A DAY NEEDED FOR MUSCLE SPASM Indication: FOR MUSCLE SPASM OUTPT NALOXONE HCL 4MG/SPRAY SOLN NASAL SPRAY (Status = Active) USE 1 SPRAY (4MG) INTO ONE NOSTRIL ONLY ONE-TIME FOR OPIOID OVERDOSE DO NOT PRIME NASAL SPRAY. SPRAY ONE DOSE IN ONE NOSTRIL, GIVE ADDITIONAL DOSE IF PATIENT DOES NOT START BREATHING WITHIN 2-3 MINUTES OR STOPS BREATHING AGAIN. CALL 911. IF USED, NOTIFY PROVIDER. Rx# [id number] Last Released: 03/25/24 Qty/Days Supply: 10/24 Rx Expiration Date: 04/24/24 Refills Remainin Indication: FOR OPIOID OVERDOSE OUTPT OMEPRAZOLE 40MG EC CAP (Status = Active) TAKE ONE CAPSULE BY MOUTH EVERY MORNING BEFORE A MEAL FOR ACID REFLUX. TAKE 30 MINUTES PRIOR TO FOOD. Rx# [id number] Last Released: 02/07/24 Qty/Days Supply: Rx Expiration Date: 05/04/24 Refills Remainin Indication: FOR GASTROESOPHAGEAL REFLUX DISEASE INPT OMEPRAZOLE 40MG EC CAP (Status=Discontinued) 40MG BY MOUTH EVERY MORNING Indication: FOR GASTROESOPHAGEAL REFLUX DISEASE INPT OMEPRAZOLE 40MG EC CAP (Status=Active) 40MG BY MOUTH QAMAC Indication: FOR GASTROESOPHAGEAL REFLUX DISEASE OUTPT ONDANSETRON 4MG ORAL DISINTEGRATING TAB (Status = ) TAKE ONE TABLET UNDER THE TONGUE EVERY EIGHT(8) HOURS NEEDED FOR NAUSEA/VOMITING Rx# [id number] Last Released: 01/27/24 Qty/Days Supply: Rx Expiration Date: 03/14/24 Refills Remainin Indication: FOR NAUSEA/VOMITING CLIN ONDANSETRON HCL 2MG/ML INJ,SOLN (Status=Discontinued) 4MG/2ML IVP ONE-TIME STAT (FOR E.R. ADMINISTRATION ONLY) Indication: FOR NAUSEA/VOMITING <AUTO DC> CLIN ONDANSETRON HCL 2MG/ML INJ,SOLN (Status=Discontinued) 4MG/2ML IVP ONE-TIME STAT (FOR E.R. ADMINISTRATION ONLY) Indication: FOR NAUSEA/VOMITING <AUTO DC> INPT ONDANSETRON 4MG ORAL DISINTEGRATING TAB (Status=Active) 4MG UNDER TONGUE EVERY SIX HOURS NEEDED FOR NAUSEA/VOMITING Indication: FOR NAUSEA/VOMITING INPT OXYCODONE HCL 5MG TAB UD (Status=Active) 5MG BY MOUTH EVERY SIX HOURS NEEDED 2nd line for pain Indication: FOR ACUTE PAIN CLIN PROCHLORPERAZINE 5MG/ML INJ (Status=Discontinued) 5MG/1ML IVP ONE-TIME STAT (FOR E.R. ADMININISTRATION ONLY) Indication: FOR NAUSEA/VOMITING <AUTO DC> CLIN SODIUM CHLORIDE 0.9% INJ,SOLN (Status=Discontinued) SODIUM CHLORIDE 0.9% INJ,SOLN 1000 ml IV LABEL@0 with total volume 1L Indication: FOR VOLUME REPLACEMENT <AUTO DC> Remote SUMATRIPTAN SUCCINATE 50MG TAB TAKE ONE TABLET BY MOUTH ONE TIME NEEDED AT ONSET OF [place]. MAY REPEAT DOSE AFTER 2 HOURS IF NEEDED; DO NOT EXCEED 200 MG IN 24 HOURS. Last Filled: 01/22/24 (Active at [facility]) Rx Expiration Date: 05/14/24 Days Supply: 30 SUPPLIES ========= MEDICATION REVIEW ========= 4. Patient/Family/Caregiver report TAKING WRITTEN all other medications ====== GENERAL INFORMATION ====== Admission information given by: Patient Is there a legal guardian/conservator? No Preferred language for discussing healthcare: Lithuanian Preferred mode of communication: Verbal Items at Bedside: None ======= INFECTIOUS DISEASE RISK SCREEN ======= Travel Screen: Have you traveled within the [place] within the last 21 days? No Have you traveled outside the [place] within the last 21 days? No Within the last 14 days, have you had: No known exposure Other Exposure to Infectious Disease: No known exposure Patient reported the following symptoms: No Symptoms Present History of Multiple Drug Resistant Organism (MDRO): No ======= NUTRITION SCREENING ======= Malnutrition Screening Weight (Previous 6 months): Measurement DT WEIGHT LB(KG)[BMI] 03/04/2024 07:22 245(111.13)[32*] 02/07/2024 07:56 249.8(113.31)[33*] 02/03/2024 08:26 248.1(112.54)[32*] 01/23/2024 14:29 240.8(109.23)[31*] Lost weight recently without trying: No (0 points) Have you been eating poorly because of decreased appetite? No (0 points) Total Score: 0 Other Nutrition Screening Questions: The patient does not report any concerns with their teeth that would make it difficult to eat. The patient does not report overeating to the point of feeling sick or making themselves vomit. The patient denies gaining 10 lbs.(4.5 kgs) or more in the past 3 months without trying. The patient denies having any food allergies, intolerance, special dietary needs, or ethnic, cultural or latter day preferences that would affect their dietary needs. Food Insecurity Screening Within the past 12 months, you worried whether your food would run out before you got money to buy more. Never true Within the past 12 months, the food you bought just did not last you and you did not have the money to get more. Never true Food Insecurity Disposition: ====== RISK SCREENINGS ====== Alcohol Screen: Screen to be completed by: Nurse: SCREEN FOR ALCOHOL (AUDIT-C) An alcohol screening test (AUDIT-C) was negative (score=0). 1. How often did you have a drink containing alcohol in the past year? Consider a drink to be a 12 ounce can or bottle of regular beer, 8 ounces of malt liquor, a 5 ounce glass of table wine, or a 1.5 ounce shot of liquor (like scotch, gin, or vodka). Never 2. How many drinks containing alcohol did you have on a typical day when you were drinking in the past year? Response not required due to responses to other questions. 3. How often did you have six or more drinks on one occasion in the past year? Response not required due to responses to other questions. *Does the patient consume alcohol? No Tobacco Use: Never - tobacco user Do you currently or have you ever used alternative nicotine products? No Substance Use Assessment: *Do you use any recreational drugs or narcotics (prescription or non-prescription)? No ======= RISK OF WANDERING ======= The patient does not have a history of wandering. The patient does not have a history of elopement. The patient is not expressing a desire to leave. ===== SUICIDE SCREEN ===== Result of C-SSRS screener done was NEGATIVE. C-SSRS Screen is Negative ====== EXPOSURE TO VIOLENCE AND ABUSE PRE-SCREEN ====== Are you worried for your safety, that you will be hurt or harmed? No Has anyone tried to force you to sign papers or use your money against your will? No ====== POST TRAUMATIC STRESS DISORDER CARE CONSIDERATIONS ====== To minimize a startle response, what is your preference on how best to awaken you? No preference ======= REPRODUCTIVE & SEXUAL HEALTH ======= Do you have any sexual or reproductive concerns you would like your healthcare team to be aware of? No ====== ADVANCE DIRECTIVE ====== Notification of Rights Related to Advance Directives: Written notification provided. *The patient wishes to receive information about or assistance with Advance Care Planning and/or Advance Directive: No ===== SPIRITUALITY ===== Are there latter day practices or spiritual concerns you want the sales director, your provider, and other health care team members to know? No ====== ANTICIPATED DISCHARGE NEEDS ====== Where do you live? Housing owned/rented by [place]: Method of transportation upon discharge: Private Vehicle: Are there any anticipated barriers to discharge? No ===== EDUCATIONAL NEEDS/LEARNING STYLE ===== Barriers to learning: None evident Patient learning style preferences: None ======== MASCORRO FALL SCALE & TIPS PROGRAM ======== Mascorro Fall Scale: The Mascorro Fall scale was performed and score was 35. This is indicative of moderate risk for falls. History of falling: immediate or within 3 months? No Secondary diagnosis: Yes Ambulatory aid: None/bedrest/nurse assist Intravenous therapy/Heparin lock: Yes Gait/Transferring: Normal/bed rest/immobile Mental Status: Oriented to own ability/knows own limitations Fall Tailoring Interventions for Patient Safety (TIPS) Fall TIPS initiated with patient: Yes Interventions: Communicate recent fall or risk of harm ======= ASPIRATION RISK ASSESSMENT AND SWALLOW SCREEN ======= Aspiration Risk(s): Screening complete. No aspiration risk identified. Bedside Swallow Screen not indicated. ======== PAIN ASSESSMENT ======== Patient's acceptable pain goal: 0 No pain Are you currently experiencing pain? No: Pain Score: 0 /es/ IZAIAH A HUDDLESTON, RN Registered Nurse Signed: 04/16/2024 18:57 IZAIAH HUDDLESTON [facility] Apr 16, 2024 06:03 PM CONSENT: LOCAL TITLE: CONSENT CLINICAL IMED STANDARD TITLE: CONSENT DATE OF NOTE: APR 16, 2024@18:03:07 ENTRY DATE: APR 16, 2024@18:03:39 AUTHOR: BALA POOL COSIGNER: URGENCY: STATUS: COMPLETED VistA Imaging - Scanned Document Signature Informed Consent for Gallbladder - Cholecystectomy (Robotic-Assisted Laparoscopic Possible Open) (Cholecystectomy (Robotic-Assisted Laparoscopic Possible Open)) Possible Bile Ducts - Common Duct Exploration (Lap/Open) (Possible Common Bile Duct Exploration (Lap/Open)) Possible Bile Ducts - Intraoperative Cholangiogram 1. Anatomical Location: right upper quadrant 2. Informed consent was obtained at 5:57 PM on 04/16/24. The full consent document can be accessed through [facility]. 3. Patient name: MERLE LAFLEUR 4. The patient HAS decision-making capacity. 5. Surrogate (if applicable): 6. Reason for the treatment (diagnosis, condition, or indication): CHOLECYSTECTOMY (ROBOTIC-ASSISTED LAPAROSCOPIC POSSIBLE OPEN) Pain, gallstones, disease, inflammation, or other problems with the gallbladder. POSSIBLE COMMON BILE DUCT EXPLORATION (LAP/OPEN) Blockages in the common bile duct. POSSIBLE BILE DUCTS - INTRAOPERATIVE CHOLANGIOGRAM Pain, gallstones, or other upper digestive symptoms. 7. Treatment/procedure: CHOLECYSTECTOMY (ROBOTIC-ASSISTED LAPAROSCOPIC POSSIBLE OPEN) This procedure involves removing the gallbladder. The gallbladder is a small organ that stores bile which helps with digestion. It is not necessary for digestive function. This procedure will use a laparoscope. Laparoscopic surgery is done using a scope and hollow tube(s) called ports. A scope is a thin, lighted instrument with a camera attached. The surgeon can pass tools through the ports. Sometimes a robot is used to help control the tools. The robot does not perform any part of the procedure by itself. It is always under the direct control of the surgeon. Carbon dioxide gas is pumped into the abdomen. This helps the surgeon see inside the abdomen. It also gives more room to work. Your surgeon may not be able to complete the procedure using a scope or robotics. If the surgery is not done with a scope or robot, it may be done through a larger incision. Your surgeon will free the gallbladder from the liver, bile duct, and surrounding arteries. Your surgeon will remove the gallbladder. A drain may be inserted. This will keep fluid from building up in the treatment area. Your surgeon will close the cut(s) with stitches, jade, or other methods. Your surgeon will remove the drain some time after the procedure. POSSIBLE COMMON BILE DUCT EXPLORATION (LAP/OPEN) In this procedure, the doctor will examine the common bile ducts to see if a stone or some other obstruction is blocking the flow of bile. The doctor can see inside the abdomen and make repairs using a scope. A scope is a thin, lighted instrument with a camera attached. The doctor will make a small cut in the abdomen and inject a special dye into the common bile duct. The scope is inserted and takes x-ray images so that the doctor can view the problem. A tube is then inserted into the duct to drain the bile. Any stones that are found will then be removed. POSSIBLE BILE DUCTS - INTRAOPERATIVE CHOLANGIOGRAM This procedure involves injecting dye into the bile ducts and taking x-rays to visualize the anatomical relationships between the gallbladder, bile duct, and intestine. The surgeon performs this test during a surgical procedure and immediately interprets the results in the operating room. While performing the planned operation on the gallbladder or bile duct, the surgeon inserts a needle or plastic catheter (long, thin tube) through the gallbladder or the stalk connecting the gallbladder to the common bile duct (duct connecting the liver to the intestines). This can be performed via a laparoscopic (minimally invasive) or open (larger abdominal incision) approach. A dye is then injected through the needle or catheter while x-rays are taken, resulting in a clear image of the bile duct system. Once the cholangiogram is completed, the surgeon removes the catheter or needle, allowing the planned operation to proceed. 8. Anesthesia will be administered. A member of the anesthesia care team will visit you before your treatment to discuss the type(s) of anesthesia you may need and to give you more information about anesthesia. It may become necessary to alter your anesthesia care plan after this discussion. Devices may be applied to your body and placed in your veins and arteries to monitor you during your anesthesia. All forms of anesthesia involve some risk. Minor (not life-threatening) risks include: nausea, vomiting, and pain where an injection is given. Although rare, severe complications include: injury to blood vessels, drug reactions, bleeding, blood clots, loss of sensation or limb function, infection, paralysis, stroke, brain damage, heart attack, and . Here is a basic description of the major types of anesthesia including their risks in addition to those described above: General anesthesia involves drugs that are injected into the bloodstream or breathed into the lungs. A tube or other device may be inserted into your airway to help you breathe. The expected benefit is that you will be totally unconscious and you will not feel pain during the procedure. Additional risks include: injury to the teeth, throat, eyes, or lung. In less than one case in a thousand, patients may be aware of activities during their surgery. Spinal or epidural analgesia/anesthesia involves a drug being injected through a needle or catheter placed into the spinal canal. The expected benefit is a temporary decreased feeling in the area of surgical incision, allowing surgery to proceed without pain. Additional risks include: headache, backache, convulsions, persistent weakness and or numbness, abnormal heart rhythms, and incomplete pain relief during the operation that may require general anesthesia. Major/minor nerve block involves a drug being injected near nerves providing loss or reduction of sensation and movement to the area. The expected benefit is a temporary loss of feeling and/or movement of a specific limb or area of your body. Additional risks include: convulsions, persistent weakness and or numbness, and incomplete pain relief during the operation that may require general anesthesia. Monitored anesthesia care involves monitoring of the heart and lungs to make sure that they are functioning adequately during your procedure. A local anesthetic will be injected to prevent pain, and the anesthesia care provider may use drugs to help you relax, and lessen any pain. You may remain conscious throughout your procedure, or you may be given medications that will make you unconscious. The expected benefit is that you will be comfortable during your operation with a minimum amount of anesthesia. This may result in a shorter stay in the hospital. Additional risks include: incomplete pain relief during the operation that may require additional anesthesia. Convulsions from the injected drug are a rare but serious complication. 9. Consent to Blood Products (if applicable): I CONSENT to the use of blood products during this treatment/procedure if they are needed. I understand that the benefit of blood products is that they may improve my overall condition or save my life. I understand that my consent for use of blood products is valid while I recover from the treatment/procedure. My provider will determine when this recovery period ends. If this consent form expires, my treatment plan changes, or if blood products are needed for a reason that is unrelated to this treatment/procedure, I will be asked again for my consent for use of blood products. I understand that common risks of using blood products include (but are not limited to) infection or irritation where the needle is placed, fever, chills, and skin rashes. Other rare but more serious complications may occur such as allergic reactions, heart failure due to fluid overload, acute pulmonary edema (fluid leaking into the lungs), shock, or . I also understand that transfusions of blood or blood products involve a small risk of transmission of diseases such as Hepatitis B (1 in 137,000), Hepatitis C (1 in 1,000,000), and HIV/AIDS (1 in 1,900,000). There is also a small risk of bacterial infection when blood platelets are transfused. Alternatives to blood or blood products may be available if my health, time, and procedure permit. These alternatives may include auto-donation (using my own previously donated blood) and intra-operative salvage (my own blood collected during surgery). In addition, medications may be used to reduce the need for blood products. 10. Practitioner obtaining consent: Jakub Redd MD 11. Supervising practitioner: oTmi Arnett 12. Practitioner(s) performing or supervising treatment/procedure (if not listed above): Jaswinder Villafuerte MD 13. Witness Name(s): 14. Comments: SCANNED DOCUMENT SIGNATURE NOT REQUIRED Electronically Filed: 04/16/2024 by: BALA POOL,BALA [facility]
--- OUTSIDE RECORDS SUMMARY | 2025-01-15 07:39 | XMS_ITS ---
Author Name [facility] [facility] [place] [facility] [place] Address [address] [place] [address] Care Team Providers Care Fence Erector Name Role Phone BROOKLYN ARAGON Primary Care [...] FOCUS FAMIL Y Oct 08, [phone] [id number] [phone] REISING,T YLER PATIENT CAREMARK ([id number])RX PRESCRIPT ION GEHA Oct 04, 2024 [id number] [phone] REISING,T YLER PATIENT CAREMARK FEP [id number] PRESCRIPT ION FEPRX Aug 16, 2019 [id number] [phone] REISING,T YLER PATIENT GEHA PREFERRED PROVIDER ORGANIZAT ION (PPO) GEHA STAND EVELYN Oct 04, 2024 [id number] REISING,T YLER PATIENT Selected Encounter This section includes the information on record at [place] for the Encounter. Date/Time Encounter Type Encounter Description Reason Provider Source Jun 03, 2024 11:30 AM OFFICE O/P EST MOD 30 MIN NEUROSURGERY ICD-10-CM M51.36 Other intervertebral disc degeneration, lumbar region SOBIA SORENSEN Karen Encounter Template Text not used by [place] Assessments - Encounter Diagnoses This section includes the primary and secondary diagnoses documented for the Encounter. Date/Time Primary/Secondary Diagnosis Diagnosis Name Provider Source Jun 03, 2024 11:31 AM PRIMARY Other intervertebral disc degeneration, lumbar region VALARIE,[facility] Jun 03, 2024 11:31 AM SECONDARY Spinal stenosis, lumbar region without neurogenic nelida [facility] Jun 03, 2024 11:31 AM SECONDARY Wedge compression fracture of unsp lumbar vertebra, sequ[facility] Plan of Treatment: Future Appointments (+ 6 months) and Future Tests (+/- 45 days) The Plan of Treatment section includes future care activities for the patient [facility] This section includes future appointments and future orders which are active, pending or scheduled. Future Appointments This section includes appointments that were scheduled to occur 6 months from the date of the Encounter, up to a maximum of 20 appointments. The data comes from all [place] treatment facilities. Appointment Date/Time Appointment Type Appointme nt Facility Name Jun 11, 2024 01:00 PM AMBULATORY - PS[facility]IATRY [facility] Jun 29, 2024 03:00 PM AMBULATORY - NONE [facility] Jul 17, 2024 01:24 PM AMBULATORY - MEDICINE [facility] Jul 22, 2024 10:30 AM AMBULATORY - MEDICINE [facility] Jul 24, 2024 04:14 AM AMBULATORY - MEDICINE [facility] Aug 07, 2024 03:00 PM AMBULATORY - MEDICINE [facility] Oct 07, 2024 04:15 PM AMBULATORY - MEDICINE [facility] Oct 10, 2024 05:20 AM AMBULATORY - MEDICINE [facility] Active, Pending, and Scheduled Orders This section includes a listing of several types of active, pending, and scheduled orders, including clinic medications orders, diagnostic test orders, procedure orders and consult orders; where the start date of the order is 45 days before the date of the Encounter or 45 days after the date of theEncounter. The data comes from all [place] treatment facilities. Test Date/Time Test Type Test Details Facility Name Jun 29, 2024 12:00 AM Laboratory - Chemi stry Order VITAMIN D, 25-HYDROXY GOLD/RED SST SERUM SP [facility] Social History: Smoking Status (Most current) and Tobacco Use (All prior to encounter date) This section includes the most current, and the historical, smoking and tobacco- related health factors from the [place] facility where the Encounter took place. Current Smoking Status This section includes the most current smoking, or tobacco-related health factor, from the [place] facility where the Encounter took place. Date/Time Current Smoking Status Comment Facil ity Jan 08, 2024 04:16 PM [place]-TOBACCO FORMER USER [facility] Tobacco Use History This section includes a history of the smoking, or tobacco-related health factors, that were collected on or before the date of the Encounter. The data comes from the [place] facility where the Encounter took place. Date/Time Smoking Status/Tobacco Use Comment F acility Jan 08, 2024 04:16 PM VA-TOBACCO QUIT 15 YRS OR MORE [facility] Dec 18, 2023 09:41 AM VA-TOBACCO FORMER USER [facility] Dec 18, 2023 09:41 AM [place]-TOBACCO QUIT 1 TO < 5 YRS [facility] Advance Directives: All historical and current Section Date Range: From patient's date of to the date document was created. This section includes ALL of a patient's completed or amended [place] Advance and Rescinded Directives. The entries below indicate that a directive exists for the patient, but an actual copy is not included with this document. The data comes from all [facility]. Date Advance Directives Provider Source Aug 28, 2023 ADVANCE DIRECTIVE NO TIFICATION AND SCREENING SYLWIA [facility] [place] May 14, 2023 ADVANCE DIRECTIVE NO TIFICATION AND SCREENING SYLWIA [facility] [place] Radiology Reports: +/- 30 days of the [...] the Encounter. The data comes from all [place] treatment facilities. Date/Time Radiology Report Provider Source May 20, 2024 02:[address] LUMBAR SPINE W/ O CONT: MERLE LAFLEUR [id number] -1990 M Exm Date: MAY 20, 2024@14:53 Req Phys: SOBIA SORENSEN Loc: [facility]-NEUROSURGERY COMMUNICATIONS WRITER 1 (Req'g Lo Img Loc: [facility]-CT IMAGING [facility] Service: Unknown [facility] [address] [place] [address] (Case [id number] COMPLETE) CT LUMBAR SPINE W/O CONT (CT Detailed) CPT:97138 Reason for Study: F/u L2, L3 compression fractyre Clinical History: Responsible Attending: Valarie Attending Contact Number: [phone] Resident Contact Number: Allergies listed in CPRS chart: Patient has answered NKA Creatinine: CREATININE 1.22 mg/dL 04/17/2024 20:00 /eGFR: STL EGFR (within one year). CREATININE 1.22 mg/dL (04/17/24 20:00) Wt: 241 lb [109.32 kg] (04/27/2024 14:41) History of: Renal failure, chronic or acute renal disease: NO Report Status: Verified Date Reported: MAY 21, 2024 Date Verified: MAY 21, 2024 Customer Success Associate E-Sig:/ES/Ronaldo Velasquez MD. FACR. Report: History: F/u [...] Interpreting Staff: Ronaldo Velasquez MD. FACR, Neuroradiologist (Customer Success Associate) /RONALDO ARZATE [facility] May 15, 2024 09:10 AM BONE DENSITY-P: MERLE LAFLEUR [id number] -1990 M Exm Date: MAY 15, 2024@09:10 Req Phys: SOBIA SORENSEN Pat Loc: [facility]NEUROSURGERY COMMUNICATIONS WRITER 1 (Req'g Lo Img Loc: [facility]-BONE DENSITY Service: Unknown [facility] [address] [place] [address] (Case [id number] COMPLETE) NM BONE DENSITY(DXA), AXIAL SKELE(NM Detailed) CPT:92754 Reason for Study: L2, L3 comprerssion (Case [id number] COMPLETE) NM BONE DENSITY(DXA), APPENDICULA(NM Detailed) CPT:69664 Clinical History: BONE DENSITY Osteoporosis and Vertebral Fracture Screening Information Reason for exam: Compression fracture WT: 241 lb [109.32 kg] (04/27/2024 14:41) HT: 74 in [188.0 cm] (04/27/2024 14:41) Report Status: Verified Date Reported: MAY 15, 2024 Date Verified: MAY 15, 2024 Customer Success Associate E-Sig:/ES/Leticia Childs M.D. Report: Dual -Energy X-ray [...] Staff: Leticia Childs M.D., NUCLEAR MEDICINE PHYSICIAN (Customer Success Associate) /LETICIA LOYA [facility] Encounter Notes: All associated encounter notes This section contains the clinical notes associated to the Encounter. Date/Time Encounter Note(s) Provider Source Jun 03, 2024 11:14 AM NEUROSURGERY NOTE: LOCAL TITLE: NEUROSURGERY ST STANDARD TITLE: NEUROSURGERY NOTE DATE OF NOTE: JUN 03, 2024@11:14 ENTRY DATE: JUN 03, 2024@11:14:58 AUTHOR: SOBIA SORENSEN COSIGNER: URGENCY: STATUS: COMPLETED Modality of Care: Clinical Telehealth Visit conducted by Clinical [facility]. Patient/surrogate provided verbal consent for [facility] telehealth. Patient location confirmed. Emergency number confirmed. Patient Contact Details: Best contact number for backup communication with patient: Address: [address] [place] [address] [place] [id number] [facility]: BEATT[facility]) PRESENTATION: Marylin is a very pleasant 34 year old with a past medical history of depression, MARY, tennitis, GERD, hiatal hernia, pes planus, h/o TBI, migraines, allergic rhinitis, vitamin D deficiency, anxiety who presents today with lumbar compression fracture. Marylin tells me he on March 25, he was roller blading with his kids, falling> he felt immediate low back pain. He also endorse R LE sciatic pain, but since resolved. Marylin denies any LE weakness or issues with his bowel or bladder. Since the original injury marylin reports 70-90% improvement with pain. INTERVAL HISTORY: Today, 06/03/24: Marylin presents today for follow-up. Since he was last seen, marylin reports near resolution of back pain - mostly at night. No pain into his legs and no issues with his bowel or bladder. 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 CONSERVATIVE MANAGEMENT: None SOCIAL HISTORY: [place]. 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 TAKE 30 MINUTES PRIOR TO FOOD. 2) OXYCODONE HCL 5MG TAB TAKE ONE TABLET BY MOUTH EVERY ACTIVE 6 HOURS NEEDED FOR POST-OPERATIVE PAIN MAY CAUSE CONSTIPATION GENERAL EXAMINATION Vitals: Stable Weight: 241 lbs. BMI 31 Exam limited [facility] AOX4 Pleasant and cooperative IMAGING MRI: REPORT: Exam: MRI SPINE LUMBAR W/O CONT INDICATION: Low back pain. L2, L3 compression [...] ligamentum flavum hypertrophy. Mild central canal stenosis. IMPRESSION: 1. Insufficiency type recent superior compression fractures of the L2 and L3 vertebral bodies have not significantly progressed. 2. Multiple Schmorl's nodes are redemonstrated and can be seen with Scheuermann's disease. Multilevel degenerative disc disease as discussed above. REPORT: Exam: CT LUMBAR SPINE W/O CONT History: F/u L2, L3 compression fracture. Comparison: [...] in the anterior L1 segment is stable. IMPRESSION: Minimal increased compression at L3 as described. The deformity at L2 is stable. REPORT: Exam: NM BONE DENSITY(DXA), AXIAL SKELETON Dual -Energy X-ray Absorptiometry (DXA) with Trabecular [...] (TBS) L1-L4: 1.309 = partially degraded microarchitecture. IMPRESSION: 1. The minimum BMD T-score positions the patient in the osteopenia category. 2. The combined results of BMD and TBS values suggest a moderate fracture risk. WHO classification: Normal: T-score -1.0 or greater; Osteopenia/low bone mass: T-score -1.1 to -2.4; Osteoporosis: T-score -2.5 or lower; NEUROSURGERY IMPRESSION & PLAN: A: presents today following a fall and subsequent L2 and L3 compression fractures. Since the fall reports nearly 90% improvement with pain. He is neuro-intact. Minimal increased compression at L3 as described. The deformity at L2 is stable. L-MRI shows multilevel degenerative disc and facet disease. No severe canal stenosis. There are multiple levels of varying foraminal stenosis due to disc bulg, facet and ligamentum flavum hypertrophy. Since original CT there was no significant progression of L2 and L3 compression fractures. Bone density scan showed osteopenia. We discussed the treatment options, including living with the symptoms, weight loss, pain medication, home traction, physical therapy, chiropractic therapy, massage therapy, steroid injections/nerve blocks, and occasionally surgery when there is a structuralabnormality with a significant neurologic deficit, intractable incapacitating symptoms, or significant risk of spinal cord injury. I explained surgery should only be considered if conservative therapy has failed or if conservative therapy is not an option for relieving the problem. P: 1. Schedule with endocrinology 2. Will provide a return to work letter 3. RTC PRN He was given my direct contact information and was instructed to call if any new or worsening symptoms. He verbalized understanding and is in agreement with the plan of care. Please note that this dictation was completed with computer voice recognition software, often unanticipated grammatical, syntax and other interpretive errors are inadvertently transcribed by the computer software. Please disregard these errors /es/ SOBIA SORENSEN, MSN, PARISH WORKER, BC NURSE PRACTITIONER, NEUROSURGERY Signed: 06/03/2024 11:31 SOBIA SORENSEN [facility]
--- OUTSIDE RECORDS SUMMARY | 2025-01-15 07:39 | XMS_ITS | Encounter Summary ---
Author Name [facility] [place] Organization [facility] [place] Address [address] [place] [address] Care Team Providers Care Manager Dialysis Name Role Phone BROOKLYN ARAGON Primary Care [...] FOCUS FAMIL Y Oct 08, 2021 132 [id number] [phone] REISING,T YLER PATIENT CAREMARK ([id number])RX PRESCRIPT ION GEHA Oct 04, 2024 [id number] [phone] REISING,T YLER PATIENT CAREMARK FEP [id number] PRESCRIPT ION FEPRX Aug 16, 2019 [id number] [phone] REISING,T YLER PATIENT GEHA PREFERRED PROVIDER ORGANIZAT ION (PPO) GEHA STAND EVELYN Oct 04, 2024 [id number] REISING,T YLER PATIENT Selected Encounter This section includes the information on record at [place] for the Encounter. Date/Time Encounter Type Encounter Description Reason Pro vider Source Apr 16, 2024 02:00 PM Outpatient Encounter [facility]GO [facility]ACER IHE Encounter Template Text not used by [place] Plan of Treatment: Future Appointments (+ 6 months) and Future Tests (+/- 45 days) The Plan of Treatment section includes future care activities for the [facility] [place] [facility] This section includes future appointments and future orders which are active, pending or scheduled. Future Appointments This section includes appointments that were scheduled to occur 6 months from the date of the Encounter, up to a maximum of 20 appointments. The data comes from all [place] treatment facilities. Appointment Date/Time Appointment Type Appointme nt Facility Name Apr 22, 2024 02:00 PM AMBULATORY - PSYCHIATRY [facility] Apr 22, 2024 03:30 PM AMBULATORY - MEDICINE [facility] Apr 27, 2024 02:45 PM AMBULATORY - SURGERY [facility] May 01, 2024 11:00 AM AMBULATORY - NONE [facility] May 15, 2024 09:30 AM AMBULATORY - SURGERY [facility] May 20, 2024 03:30 PM [facility]ORY - NONE [facility] May 28, 2024 02:00 PM AMBULATORY - PSYCHIATRY [facility] Jun 03, 2024 11:30 AM AMBULATORY - SURGERY [facility] Jun 11, 2024 01:00 PM AMBULATORY - PSYCHIATRY [facility] Jun 29, 2024 03:00 PM AMBULATORY - NONE [facility] Jul 17, 2024 01:24 PM AMBULATORY - MEDICINE [facility] Jul 22, 2024 10:30 AM AMBULATORY - MEDICINE [facility] Jul 24, 2024 04:14 AM AMBULATORY - MEDICINE [facility] Aug 07, 2024 03:00 PM AMBULATORY - MEDICINE [facility] Oct 07, 2024 04:15 PM AMBULATORY - MEDICINE [facility] Oct 10, 2024 05:20 AM AMBULATORY - MEDICINE [facility] Active, Pending, and [...] of theEncounter. The data comes from all [facility] facilities. Test Date/Time Test Type Test Details Facility Name Mar 06, 2024 12:00 AM Laboratory - Chemistry Order CBC (DIFF&PLT) BLOOD SP [facility] Mar 06, 2024 12:00 AM Laboratory - Chemistry Order COMPREHENSIVE METABOLIC PANEL BLOOD PLASMA SP [facility] Mar 06, 2024 12:00 AM Laboratory - Chemistry Order URINALYSIS URINE SP [facility] Mar 06, 2024 12:00 AM Laboratory - Chemistry Order LIPID PANEL BLOOD PLASMA [facility] Mar 06, 2024 12:00 AM Laboratory - Chemistry Order TSH-G,LC,J,T BLOOD PLASMA SP [facility] Mar 06, 2024 12:00 AM Laboratory - Chemistry Order HEMOGLOBIN %A1C PROFILE BLOOD SP [facility] Mar 06, 2024 12:00 AM Laboratory - Chemistry Order MICROALBUMINURIA(IVONNE) URINE SP [facility] Apr 16, 2024 11:39 AM Laboratory - Chemistry Order MRSA SURVL NARES DNA [facility] Apr 18, 2024 09:38 AM Laboratory - Chemistry Order MRSA SURVL NARES DNA [facility] Lab Results: +/- 30 days of the encounter This section includes the Chemistry and Hematology Lab Results on record with [place] for the patient. Radiology Reports and Pathology Reports are provided separately, in subsequent sections. Lab Results This section contains the Chemistry/Hematology Results that were resulted 30 days before or 30 daysafter the date of the Encounter. Date/Time Source Result Type Result - Unit Interpretation Reference Range Specimen Type Comment Apr 17, 2024 08:49 PM [facility] BASIC METABOLIC PANEL PLASMA Specimen Type: PLASMA Comment: No hemolysis noted. Ordering Provider: JAKUB DOAN V Report Released Date/Time: Apr 16, 2024 04:01 PM Reporting Lab: [facility] [address] [facility] [address] Performing Lab: [facility] [address] [facility] [address] CREATININE 1.22 mg/dL 0.7-1.3 UREA NITROGEN 12.4 mg/dL 9.0-25.0 GLUCOSE 131 mg/dL H 72-99 SODIUM 139 meq/L 136-145 POTASSIUM 4.6 meq/L 3.5-5 CHLORIDE 105 meq/L 98-107 CARBON DIOXIDE 23 meq/L 22-31 CALCIUM 9.2 mg/dL 8.4-10.4 EGFR (CKD-EPI 2020) 79.3 >60 Apr 17, 2024 08:49 PM [facility] CBC BLOOD Specimen Type: BLOOD No comment entered. Ordering Provider: JAKUB DOAN V Report Released Date/Time: Apr 16, 2024 04:01 PM Reporting Lab: [address] [address] Performing Lab: [address] [address] WBC 11.4 10*3/uL H 3.6-11.2 RBC 5.43 [...] 0.00-0. 20 Apr 16, 2024 08:18 PM [facility] APTT PLASMA Specimen Type: PLASM A No comment entered. Ordering Provider: JAKUB DOAN V Report Released Date/Time: Apr 16, 2024 04:02 PM Reporting Lab: [facility] [address] [place] [address] Performing Lab: [address] [address] APTT 28.9 s 26.7-39.9 Apr 16, 2024 08:18 PM [facility] BASIC METABOLIC PANEL PLASMA Specimen Type: PL ASMA Comment: No hemolysis noted. Ordering Provider: JAKUB DOAN V Report Released Date/Time: Apr 16, 2024 04:01 PM Reporting Lab: [address] [address] Performing Lab: [address] [address] CREATININE 1.21 mg/dL 0.7-1.3 UREA NITROGEN 11.5 mg/dL 9.0-25.0 GLUCOSE 99 mg/dL 72-99 SODIUM 141 meq/L 136-145 POTASSIUM 3.8 meq/L 3.5-5 CHLORIDE 105 meq/L 98-107 CARBON DIOXIDE 25 meq/L 22-31 CALCIUM 9.2 mg/dL 8.4-10.4 EGFR (CKD-EPI 2020) 80.1 >60 Apr 16, 2024 08:18 PM [facility] PT/INR NEW (STL-MA) PLASMA Specimen Type: PLAS MA No comment entered. Ordering Provider: JAKUB DOAN V Report Released Date/Time: Apr 16, 2024 04:02 PM Reporting Lab: [facility] [address] [facility] [address] Performing Lab: [address] [address] PROTIME 12.3 s 9.4-12.5 INR VALUE 1.1 {INR} Apr 16, 2024 08:18 PM [facility] CBC BLOOD Specimen Type: BLOOD No comment entered. Ordering Provider: JAKUB DOAN V Report Released Date/Time: Apr 16, 2024 04:01 PM Reporting Lab: [address] [place] [address] Performing Lab: [address] [address] WBC 6.8 10*3/uL 3.6-11.2 RBC 5.13 10*6/uL [...] 0.00-0. 20 Apr 16, 2024 03:25 AM [facility] LIPASE PLASMA Specimen Type: PLASM A Comment: No hemolysis noted. Ordering Provider: ADINA WALTON Report Released Date/Time: Apr 16, 2024 03:23 AM Reporting Lab: [address] [address] Performing Lab: [address] [address] LIPASE 36 U/L 8-78 Apr 16, 2024 03:25 AM [facility] GGT GAMMA-GT PLASMA Specimen Type: PLASM A Comment: No hemolysis noted. Ordering Provider: ADINA WALTON Report Released Date/Time: Apr 16, 2024 03:23 AM Reporting Lab: [address] [address] Performing Lab: [address] [place] [address] GGT GAMMA-GT 25 [IU]/L 12-64 Apr 16, 2024 03:25 AM [facility] COMPREHENSIVE METABOLIC PANEL PLASMA Specimen Type: PLASMA Comment: No hemolysis noted. Ordering Provider: ADINA WALTON Report Released Date/Time: Apr 16, 2024 03:23 AM Reporting Lab: [address] [address] Performing Lab: [address] [address] CREATININE 1.42 mg/dL H 0.7-1.3 UREA NITROGEN [...] 66.1 >60 Apr 16, 2024 03:25 AM [facility] CBC BLOOD Specimen Type: BLOOD No comment entered. Ordering Provider: ADINA WALTON Report Released Date/Time: Apr 16, 2024 03:23 AM Reporting Lab: [facility] [address] [facility] [address] Performing Lab: [address] [address] WBC 8.8 10*3/uL 3.6-11.2 RBC 5.41 10*6/uL [...] PM 98.2 77 123/69 18 95 0 [facility] Apr 16, 2024 06:41 PM 243.6 31 [facility] Apr 16, 2024 06:39 PM 98.3 79 123/77 18 96 0 [facility] Apr 16, 2024 06:32 PM 0 [facility] Apr 16, 2024 11:25 AM 75 111/80 14 97 [facility] Social History: Smoking Status (Most [...] martínez Jan 08, 2024 04:16 PM VA-TOBACCO QUIT 15 YRS OR MORE [facility] Tobacco Use History This section includes a history of the smoking, or tobacco-related health factors, that were collected on or before the date of the Encounter. The data comes from the [place] facility where the Encounter took place. Date/Time Smoking Status/Tobacco Use Comment F acility Jan 08, 2024 04:16 PM VA-TOBACCO QUIT 15 YRS OR MORE [facility] Dec 18, 2023 09:41 AM VA-TOBACCO FORMER USER [facility] Dec 18, 2023 09:41 AM VA-TOBACCO QUIT 1 TO < 5 YRS [facility] Advance Directives: All historical and current Section Date Range: From patient's date of to the date document was created. This section includes ALL of a patient's completed or amended [place] Advance and Rescinded Directives. The entries below indicate that a directive exists for the patient, but an actual copy is not included with this document. The data comes from all [place] facilities. Date Advance Directives Provider Source Aug 28, 2023 ADVANCE DIRECTIVE NO TIFICATION AND SCREENING SYLWIA SANTIAGO [facility] May 14, 2023 ADVANCE DIRECTIVE NO TIFICATION AND SCREENING SYLWIA SANTIAGO [facility] Radiology Reports: +/- 30 days [...] 2024 09:10 AM BONE DENSITY-P: MERLE LAFLEUR [id number] -1990 M Exm Date: MAY 15, 2024@09:10 Req Phys: SOBIA SORENSEN Pat Loc: [facility]-NEUROSURGERY SUPERVISOR WATERWORKS 1 (Req'g Lo Img Loc: [facility]-BONE DENSITY Service: Unknown [facility] [address] [place] [address] (Case [id number] COMPLETE) NM BONE DENSITY(DXA), AXIAL SKELE(NM Detailed) CPT:94486 Reason for Study: L2, L3 comprerssion (Case [id number] COMPLETE) NM BONE DENSITY(DXA), APPENDICULA(NM Detailed) CPT:30545 Clinical History: BONE DENSITY Osteoporosis and Vertebral Fracture Screening Information Reason for exam: Compression fracture WT: 241 lb [109.32 kg] (04/27/2024 14:41) HT: 74 in [188.0 cm] (04/27/2024 14:41) Report Status: Verified Date Reported: MAY 15, 2024 Date Verified: MAY 15, 2024 Gary E-Sig:/ES/Leticia Childs M.D. Report: Dual -Energy X-ray Absorptiometry (DXA) with Trabecular Bone Score (TBS) calculation Findings: Bone mineral density measurements of the forearm, proximal femur and lumbar spine with their appropriate regions of interest outlined are available for viewing in [employer] and Radiology Viewer. Lumbar spine: Measured [...] Staff: Leticia Childs M.D., NUCLEAR MEDICINE PHYSICIAN (Gary) /LETICIA LOYA [facility] May 01, 2024 09:48 AM MRI SPINE LUMBAR W /O CONT: RAMSESJEREMERLE [id number] -1990 M Ex Date: MAY 01, 2024@09:48 Req Phys: SOBIA SORENSEN Pat Loc: [facility]NEUROSURGERY SUPERVISOR WATERWORKS 1 (Req'g Lo Img Loc: [facility]-MAGNETIC RESONANCE IMAGING Service: Unknown [facility] [address] [place] [address] (Case [id number] COMPLETE) MRI SPINE LUMBAR W/O CONT (MRI Detailed) CPT:33630 Reason for Study: Low back pain. L2, [...] Apr Responsible Attending: Valarie Attending Contact Number: [id number] Resident Contact Number: Does your patient have [...] 01, 2024 Date Verified: MAY 01, 2024 Android Platform Developer E-Sig:/ES/MONICA DUARTE Report: INDICATION: Low back pain. [...] above. Primary Interpreting Staff: MONICA DUARTE, RADIOLOGIST (Android Platform Developer) /MONICA ROJAS [facility] Apr 16, 2024 07:12 AM US ABDOMEN LIMITED W/BLOOD FLOW DOPPLER: MERLE LAFLEUR [id number] -1990 M Ex Date: APR 16, 2024@07:12 Req Phys: ADINA WALTON Loc: [facility]-EMERGENCY DEPT 1ST SHIFT (R Img Loc: [facility]ULTRASOUND [facility] Service: Unknown [facility], [facility] [address] [place] [address] (Case [id number] COMPLETE) US ABDOMEN LTD, SINGLE ORG OR MORTEZA(US Detailed) CPT:13838 Reason for Study: eval acute cholecystitis (Case [id number] COMPLETE) US BLOOD FLOW ABD/RENAL (LTD) (US Detailed) CPT:53612 Clinical History: Organ to Image: Gallbladder Reason for exam: ho cholelithiasis. here with RUQ abdominal pain and nausea/emesis. Evaluate for acute cholecystitis Report Status: Verified Date Reported: APR 16, 2024 Date Verified: APR 16, 2024 Android Platform Developer E-Sig:/ES/JAIRO GARCIA Report: Case [id number], [id number]. US ABDOMEN LTD, SINGLE ORG OR QUADRANT, [...] scan may be of help for confirmation. I, Jairo Garcia, have reviewed the images and report and concur with these findings. Primary Interpreting Staff: JAIRO GARCIA, RADIOLOGIST (Android Platform Developer) Primary Interpreting Resident: JOSE ROBERTO RAMSAY, Resident Physician /JAIRO NGUYEN [facility] Apr 16, 2024 04:[address] ABD PEL W/O & W CONT & 3D: MERLE LAFLEUR [id number] -1990 M Exm Date: APR 16, 2024@04:46 Req Phys: ADINA WALTON Loc: [facility]-EMERGENCY DEPT 1ST SHIFT (R Img Loc: [facility]-CT IMAGING [facility] Service: Unknown [facility], [facility] [address] [place] [address] (Case [id number] COMPLETE) CT ABDOMEN AND PELVIS W/CONTRAST (CT Detailed) CPT:24162 Contrast Media : Non-ionic Iodinated Reason for Study: evaluate for acute cholecystitis (Case [id number] COMPLETE) CT 3D RENDERING W INDEPENDENT WOR(CT Detailed) CPT:86933 Clinical History: Responsible Attending: jordon Attending Contact Number: sd Resident Contact Number: ho cholelithiasis, now wiht [...] 16, 2024 Date Verified: APR 16, 2024 Android Platform Developer E-Sig:/ES/RANDALL JULES MD Report: Spiral axial imaging [...] Primary Interpreting Staff: RANDALL JULES MD, Radiologist (Android Platform Developer) /RANDALL BLANK [facility] Mar 25, 2024 07:[address] LUMBAR SPINE W/ O CONT: MERLE LAFLEUR [id number] -1990 M Exm Date: MAR 25, 2024@19:39 Req Phys: JESSICA PATTEN Loc: [facility]-EMERGENCY DEPT 3RD SHIFT (R Img Loc: [facility]-CT IMAGING [facility] Service: [address] [address] (Case [id number] COMPLETE) CT LUMBAR SPINE W/O CONT (CT Detailed) CPT:43924 Reason for Study: eval for fx/dislocation Clinical History: Responsible Attending: DR JESSICA PATTEN Attending Contact Number: [phone] Resident Contact Number: FELL while roller blading. [...] 25, 2024 Date Verified: MAR 25, 2024 Android Platform Developer E-Sig: Report: CT THORACIC SPINE W/O CONT, CT LUMBAR SPINE W/O CONT HISTORY: eval for fx/dislcoation COMPARISON: No priors available. TECHNIQUE: The study was protocoled and supervised at the local [place] facility. 2807 images were subsequently received by the [place] National Teleradiology Program (NTP) for interpretation. Volumetric [...] fracture fragments. READING PHYSICIAN: Caio Rollins MD -[id number] 03/25/2024 18:30 PDT [facility] National Teleradiology Program [phone] (For Medical Practitioner Use Only) Attention Patients / Veterans: If you have questions or concerns about these test results, please contact your ordering provider or primary care team. Primary Interpreting Staff: RADIOLOGY,OUTSIDE SERVICE, Staff Physician / RADIOLOGY,OUTSIDE SERVICE [facility] Mar 25, 2024 07:[address] THORACIC SPINE W/O CONT: MERLE LAFLEUR [id number] -1990 M Exm Date: MAR 25, 2024@19:39 Req Phys: JESSICA PATTEN Loc: [facility]EMERGENCY DEPT 3RD SHIFT (R Img Loc: [facility]CT IMAGING [facility] Service: Unknown [facility] [address] [place] [address] (Case [id number] COMPLETE) CT THORACIC SPINE W/O CONT (CT Detailed) CPT:94938 Reason for Study: eval for fx/dislcoation Clinical History: Responsible Attending: dr jessica patten Attending Contact Number: [id number] Resident Contact Number: FELL while roller blading. [...] 25, 2024 Date Verified: MAR 25, 2024 Android Platform Developer E-Sig: Report: CT THORACIC SPINE W/O CONT, CT LUMBAR SPINE W/O CONT HISTORY: eval for fx/dislcoation COMPARISON: No priors available. TECHNIQUE: The [facility] 2807 images were subsequently received by the [place] National Teleradiology Program (NTP) for interpretation. Volumetric [...] fracture fragments. READING PHYSICIAN: Caio Rollins MD -[id number] 03/25/2024 18:30 PDT [facility] National Teleradiology Program [phone] (For Medical Practitioner Use Only) Attention Patients / Veterans: If you have questions or concerns about these test results, please contact your ordering provider or primary care team. Primary Interpreting Staff: RADIOLOGY,OUTSIDE SERVICE, Staff Physician / RADIOLOGY,OUTSIDE SERVICE [facility] Pathology Reports: +/- 30 days of [...] comes from all [place] treatment facilities. Date/Time Pathology Report Provider Source [...] POSTOPERATIVE DIAGNOSIS: intractable billiary colic Surgeon/physician: TIFFANY RANETT III =-=-=-=-=-=-=-=-=-=-=-=-=-=- =-=-=-=-=-=-=-=-=-=-=-=-=-=- =-=-=-=-=-=-=-=-=-=-=-= - - - [...] seen, and no masses are grossly identified. Channel Layer sections of the wall from the body [...] Pathology Report Performed By: [facility] [address] [facility]# [id number] [address] [facility] [address] [place] [address] $FTR - - - - - - [...] - - MERLE LAFLEUR STANDARD FORM 515 ID:[id number] SEX:M :1990 AGE: 34 LOC:APFEE PCP: Jaswinder Villafuerte MD /cydney/ CHELI MORALES Pathologist Signed: 04/21/2024 11:44 CHELI MORALES [facility]
--- OUTSIDE RECORDS SUMMARY | 2025-01-15 07:39 | XMS_ITS | Encounter Summary ---
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 Date/Time Encounter Type Encounter Description Reason Provider Source Apr 16, 2024 03:06 AM EMERGENCY DEPT VISIT MOD [facility] EMERGENCY DEPT ICD-10-CM R10.10 Upper abdominal pain, unspecified KYLE GRAY IHE Encounter Template Text not used by [place] Assessments - Encounter Diagnoses This section includes the primary and secondary diagnoses documented for the Encounter. Date/Time Primary/Secondary Diagnosis Diagnosis Name Provider Source Apr 16, 2024 03:19 PM PRIMARY Upper abdominal pain, unspecified KYLE GRAY [facility] Plan of Treatment: Future Appointments (+ 6 months) and Future Tests (+/- 45 days) The Plan of Treatment section includes future care activities for the [facility] [place] [facility] This section includes future appointments and future orders which are active, pending or scheduled. Future Appointments This section includes appointments that were scheduled to occur 6 months from the date of the Encounter, up to a maximum of 20 appointments. The data comes from all [place] treatment facilities. Appointment Date/Time Appointment Type Appointme nt Facility Name Apr 22, 2024 02:00 PM AMBULATORY - PSYCHIATRY [facility] Apr 22, 2024 03:30 PM AMBULATORY - MEDICINE [facility] Apr 27, 2024 02:45 PM AMBULATORY - SURGERY [facility] May 01, 2024 11:00 AM AMBULATORY - NONE [facility] May 15, 2024 09:30 AM AMBULATORY - SURGERY [facility] May 20, 2024 03:30 PM AMBULATORY - NONE . [facility] May 28, 2024 02:00 PM AMBULATORY - PSYCHIATRY [facility] Jun 03, 2024 11:30 AM AMBULATORY - SURGERY [facility] Jun 11, 2024 01:00 PM AMBULATORY - PSYCHIATRY [facility] Jun 29, 2024 03:00 PM AMBULATORY - NONE [facility] Jul 17, 2024 01:24 PM AMBULATORY - MEDICINE [facility] Jul 22, 2024 10:30 AM AMBULATORY - MEDICINE [facility] Jul 24, 2024 04:14 AM AMBULATORY - MEDICINE [facility] Aug 07, 2024 03:00 PM AMBULATORY - MEDICINE [facility] Oct 07, 2024 04:15 PM AMBULATORY MEDICINE [facility] Oct 10, 2024 05:20 AM [facility] Active, Pending, and Scheduled Orders This section includes a listing of several types of active, pending, and scheduled orders, including clinic medications orders, diagnostic test orders, procedure orders and consult orders; where the start date of the order is 45 days before the date of the Encounter or 45 days after the date of theEncounter. The data comes from all [facility] facilities. Test Date/Time Test Type Test Details Facility Name Mar 06, 2024 12:00 AM Laboratory - Chemistry Order CBC (DIFF&PLT) BLOOD SP [facility] Mar 06, 2024 12:00 AM Laboratory - Chemistry Order COMPREHENSIVE METABOLIC PANEL BLOOD PLASMA [facility] Mar 06, 2024 12:00 AM Laboratory - Chemistry Order URINALYSIS URINE [facility] Mar 06, 2024 12:00 AM Laboratory - Chemistry Order LIPID PANEL BLOOD PLASMA [facility] Mar 06, 2024 12:00 AM Laboratory - Chemistry Order TSH-G,LC,J,T BLOOD PLASMA SP [facility] [place] Mar 06, 2024 12:00 AM Laboratory - Chemistry Order HEMOGLOBIN %A1C PROFILE BLOOD SP [facility] [place] Mar 06, 2024 12:00 AM Laboratory - Chemistry Order MICROALBUMINURIA(IVONNE) URINE SP [facility] [place] Apr 16, 2024 11:39 AM Laboratory - Chemistry Order MRSA [facility] Apr 18, 2024 09:38 AM Laboratory - Chemistry Order MRSA SURVL [facility]AR[facility] DNA [facility] Lab Results: +/- 30 days of the encounter This section includes the Chemistry and Hematology Lab Results on record with [place] for the patient. Radiology Reports and Pathology Reports are provided separately, in subsequent sections. Lab Results This section contains the Chemistry/Hematology Results that were resulted 30 days before or 30 daysafter the date of the Encounter. Date/Time Source Result Type Result - Unit Interpretation Reference Range Specimen Type Comment Apr 17, 2024 08:49 PM [facility] BASIC METABOLIC PANEL PLASMA Specimen Type: PLASMA Comment: No hemolysis noted. Ordering Provider: JAKUB DOAN V Report Released Date/Time: Apr 16, 2024 04:01 PM Reporting Lab: [address] [phone] Performing Lab: [address] [address] CREATININE 1.22 mg/dL 0.7-1.3 UREA NITROGEN 12.4 mg/dL 9.0-25.0 GLUCOSE 131 mg/dL H 72-99 SODIUM 139 meq/L 136-145 POTASSIUM 4.6 meq/L 3.5-5 CHLORIDE 105 meq/L 98-107 CARBON DIOXIDE 23 meq/L 22-31 CALCIUM 9.2 mg/dL 8.4-10.4 EGFR (CKD-EPI 2020) 79.3 >60 Apr 17, 2024 08:49 PM [facility] CBC BLOOD Specimen Type: BLOOD No comment entered. Ordering Provider: JAKUB DOAN V Report Released Date/Time: Apr 16, 2024 04:01 PM Reporting Lab: [address] [address] Performing Lab: [address] [address] WBC 11.4 10*3/uL H 3.6-11.2 RBC 5.43 [...] 0.00-0. 20 Apr 16, 2024 08:18 PM [facility] APTT PLASMA Specimen Type: PLASM A No comment entered. Ordering Provider: JAKUB DOAN V Report Released Date/Time: Apr 16, 2024 04:02 PM Reporting Lab: [facility] [address] [place] [phone] Performing Lab: [address] [address] APTT 28.9 s 26.7-39.9 Apr 16, 2024 08:18 PM [facility] PT/INR NEW (STL-MA) PLASMA Specimen Type: PLAS MA No comment entered. Ordering Provider: JAKUB DOAN V Report Released Date/Time: Apr 16, 2024 04:02 PM Reporting Lab: [address] [address] Performing Lab: [address] [address] PROTIME 12.3 s 9.4-12.5 INR VALUE 1.1 {INR} Apr 16, 2024 08:18 PM [facility] BASIC METABOLIC PANEL PLASMA Specimen Type: PL ASMA Comment: No hemolysis noted. Ordering Provider: JAKUB DOAN V Report Released Date/Time: Apr 16, 2024 04:01 PM Reporting Lab: [facility] [address] [place] [phone] Performing Lab: [address] [address] CREATININE 1.21 mg/dL 0.7-1.3 UREA NITROGEN 11.5 mg/dL 9.0-25.0 GLUCOSE 99 mg/dL 72-99 SODIUM 141 meq/L 136-145 POTASSIUM 3.8 meq/L 3.5-5 CHLORIDE 105 meq/L 98-107 CARBON DIOXIDE 25 meq/L 22-31 CALCIUM 9.2 mg/dL 8.4-10.4 EGFR (CKD-EPI 2020) 80.1 >60 Apr 16, 2024 08:18 PM [facility] CBC BLOOD Specimen Type: BLOOD No comment entered. Ordering Provider: JAKUB DOAN V Report Released Date/Time: Apr 16, 2024 04:01 PM Reporting Lab: [facility] [address] [facility] [phone] Performing Lab: [facility] [address] [place] [phone] WBC 6.8 10*3/uL 3.6-11.2 RBC 5.13 10*6/uL [...] 0.00-0. 20 Apr 16, 2024 03:25 AM [facility] COMPREHENSIVE METABOLIC PANEL PLASMA Specimen Type: PLASMA Comment: No hemolysis noted. Ordering Provider: TELMA WALTON Report Released Date/Time: Apr 16, 2024 03:23 AM Reporting Lab: [facility] [address] [facility] [address] Performing Lab: [address] [address] CREATININE 1.42 mg/dL H 0.7-1.3 UREA NITROGEN [...] 66.1 >60 Apr 16, 2024 03:25 AM [facility] LIPASE PLASMA Specimen Type: PLASM A Comment: No hemolysis noted. Ordering Provider: TELMA WALTON Report Released Date/Time: Apr 16, 2024 03:23 AM Reporting Lab: [facility] [address] [place] [phone] Performing Lab: [address] [address] LIPASE 36 U/L 8-78 Apr 16, 2024 03:25 AM [facility] GGT GAMMA-GT PLASMA Specimen Type: PLASM A Comment: No hemolysis noted. Ordering Provider: TELMA WALTON Report Released Date/Time: Apr 16, 2024 03:23 AM Reporting Lab: [address] [address] Performing Lab: [facility] [address] [facility] [address] GGT GAMMA-GT 25 [IU]/L 12-64 Apr 16, 2024 03:25 AM [facility] CBC BLOOD Specimen Type: BLOOD No comment entered. Ordering Provider: TELMA WALTON Report Released Date/Time: Apr 16, 2024 03:23 AM Reporting Lab: [address] [address] Performing Lab: [address] [address] WBC 8.8 10*3/uL 3.6-11.2 RBC 5.41 10*6/uL [...] PM 98.2 77 123/69 18 95 0 [facility] Apr 16, 2024 06:41 PM 243.6 31 [facility] Apr 16, 2024 06:39 PM 98.3 79 123/77 18 96 0 [facility] Apr 16, 2024 06:32 PM 0 [facility] Apr 16, 2024 11:25 AM 75 111/80 14 97 [facility] Social History: Smoking Status (Most current) and Tobacco Use (All prior to encounter date) This section includes the most current, and the historical, smoking and tobacco- related health factors from the [place] facility where the Encounter took place. Current Smoking Status This section includes the most current smoking, or tobacco-related health factor, from the [place] facility where the Encounter took place. Date/Time Current Smoking Status Comment Shameka martínez Jan 08, 2024 04:16 PM VA-TOBACCO QUIT 15 YRS OR MORE [facility] Tobacco Use History This section includes a history of the smoking, or tobacco-related health factors, that were collected on or before the date of the Encounter. The data comes from the [place] facility where the Encounter took place. Date/Time [...] ALL of a patient's completed or amended [place] Advance and Rescinded Directives. The entries below indicate that a directive exists for the patient, but an actual copy is not included with this document. The data comes from all [facility]. Date Advance Directives Provider Source Aug 28, 2023 ADVANCE DIRECTIVE NO TIFICATION AND SCREENING SYLWIA SANTIAGO [facility] [place] May 14, 2023 ADVANCE DIRECTIVE NO TIFICATION AND SCREENING SYLWIA SANTIAGO [facility] [place] Radiology Reports: +/- 30 days of the [...] the Encounter. The data comes from all [place] treatment facilities. Date/Time Radiology Report Provider Source May 15, 2024 09:10 AM BONE DENSITY-P: MERLE LAFLEUR [id number] -1990 M Exm Date: MAY 15, 2024@09:10 Req Phys: SOBIA SORENSEN Loc: [facility]NEUROSURGERY [place] [facility] (Req'g Lo Img Loc: [facility]-BONE DENSITY Service: Unknown [facility], [address] [place] [address] (Case [id number] COMPLETE) NM BONE DENSITY(DXA), AXIAL SKELE(NM Detailed) CPT:23333 Reason for Study: L2, L3 comprerssion (Case [id number] COMPLETE) NM BONE DENSITY(DXA), APPENDICULA(NM Detailed) CPT:76721 Clinical History: BONE DENSITY Osteoporosis and Vertebral Fracture Screening Information Reason for exam: Compression fracture WT: 241 lb [109.32 kg] (04/27/2024 14:41) HT: 74 in [188.0 cm] (04/27/2024 14:41) Report Status: Verified Date Reported: MAY 15, 2024 Date Verified: MAY 15, 2024 Mason Tender E-Sig:/ES/Leticia Childs M.D. Report: Dual -Energy X-ray [...] Staff: Leticia Childs M.D., NUCLEAR MEDICINE PHYSICIAN (Mason Tender) /LETICIA LOYA [facility] May 01, 2024 09:48 AM MRI SPINE LUMBAR W /O CONT: MERLE LAFLEUR [id number] 1990 M Exm Date: MAY 01, 2024@09:48 Req Phys: VALARIESOBIA Loc: [facility] [place] [facility] (Req'g Lo Img Loc: [facility]-MAGNETIC RESONANCE IMAGING Service: Unknown [facility], [address] [place] [address] (Case [id number] COMPLETE) MRI SPINE LUMBAR W/O CONT (MRI Detailed) CPT:17166 Reason for Study: Low back pain. L2, [...] Apr Responsible Attending: Valarie Attending Contact Number: [phone] Resident Contact Number: Does your patient have [...] 01, 2024 Date Verified: MAY 01, 2024 Mason Tender E-Sig:/ES/MONICA DUARTE Report: INDICATION: Low back pain. [...] above. Primary Interpreting Staff: MONICA DUARTE, RADIOLOGIST (Mason Tender) /MONICA ROJAS [facility] Apr 16, 2024 07:12 AM US ABDOMEN LIMITED W/BLOOD FLOW DOPPLER: MERLE LAFLEUR [id number] -1990 M Exm Date: APR 16, 2024@07:12 Req Phys: ISABELLETELMA Pat Loc: [facility]-EMERGENCY DEPT 1ST SHIFT (R Img Loc: [facility]ULTRASOUND [facility] Service: Unknown [facility], [address] [place] [address] (Case [id number] COMPLETE) US ABDOMEN LTD, SINGLE ORG OR MORTEZA(US Detailed) CPT:54721 Reason for Study: eval acute cholecystitis (Case [id number] COMPLETE) US BLOOD FLOW ABD/RENAL (LTD) (US Detailed) CPT:71767 Clinical History: Organ to Image: Gallbladder Reason for exam: ho cholelithiasis. here with RUQ abdominal pain and nausea/emesis. Evaluate for acute cholecystitis Report Status: Verified Date Reported: APR 16, 2024 Date Verified: APR 16, 2024 Mason Tender E-Sig:/ES/JAIRO GARCIA Report: Case [id number], [id number]. US ABDOMEN LTD, SINGLE ORG OR QUADRANT, [...] findings. Primary Interpreting Staff: JAIRO GARCIA, RADIOLOGIST (Mason Tender) Primary Interpreting Resident: JOSE ROBERTO RAMSAY, Resident Physician /JAIRO NGUYEN Urmila [facility] Apr 16, 2024 04:[address] ABD PEL W/O & W CONT & 3D: MERLE LAFLEUR [id number] -1990 M Exm Date: APR 16, 2024@04:46 Req Phys: TELMA WALTON Loc: [facility]EMERGENCY DEPT 1ST SHIFT (R Img Loc: [facility]CT IMAGING [facility] Service: [address] [address] (Case [id number] COMPLETE) CT ABDOMEN AND PELVIS W/CONTRAST (CT Detailed) CPT:10583 Contrast Media : Non-ionic Iodinated Reason for Study: evaluate for acute cholecystitis (Case [id number] COMPLETE) CT 3D RENDERING W INDEPENDENT WOR(CT Detailed) CPT:47138 Clinical History: Responsible Attending: isabelle Attending Contact Number: co Resident Contact Number: ho cholelithiasis, now wiht [...] 16, 2024 Date Verified: APR 16, 2024 Mason Tender E-Sig:/ES/RANDALL JULES MD Report: Spiral axial imaging [...] Primary Interpreting Staff: RANDALL JULES MD, Radiologist (Mason Tender) /RANDALL BLANK [facility] Mar 25, 2024 07:[address] THORACIC SPINE W/O CONT: MERLE LAFLEUR [id number] -1990 M Exm Date: MAR 25, 2024@19:39 Req Phys: JESSICA PATTEN Pat Loc: [facility]EMERGENCY DEPT 3RD SHIFT (R Img Loc: [facility]-CT IMAGING Service: Unknown [facility], [facility] [address] [place] [address] (Case [id number] COMPLETE) CT THORACIC SPINE W/O CONT (CT Detailed) CPT:29867 Reason for Study: eval for fx/dislcoation Clinical History: Responsible Attending: dr jessica patten Attending Contact Number: [phone] Resident Contact Number: FELL while roller blading. [...] 25, 2024 Date Verified: MAR 25, 2024 Mason Tender E-Sig: Report: CT THORACIC SPINE W/O CONT, CT LUMBAR SPINE W/O CONT HISTORY: eval for fx/dislcoation COMPARISON: No priors available. TECHNIQUE: The study was protocoled and supervised at the local [place] facility. 2807 images were subsequently received by the [place] National Teleradiology Program (NTP) for interpretation. Volumetric [...] fracture fragments. READING PHYSICIAN: Caio Rollins MD -[id number] 03/25/2024 18:30 PDT [facility] National Teleradiology Program [phone] (For Medical Practitioner Use Only) Attention Patients / Veterans: If you have questions or concerns about these test results, please contact your ordering provider or primary care team. Primary Interpreting Staff: RADIOLOGY,OUTSIDE SERVICE, Staff Physician / RADIOLOGY,OUTSIDE SERVICE [facility] Mar 25, 2024 07:[address] LUMBAR SPINE W/ O CONT: MERLE LAFLEUR [id number] -1990 M Exm Date: MAR 25, 2024@19:39 Req Phys: JESSICA PATTEN Loc: [facility]EMERGENCY DEPT 3RD SHIFT (R Img Loc: [facility]CT IMAGING [facility] Service: Unknown [facility], [address] [place] [address] (Case [id number] COMPLETE) CT LUMBAR SPINE W/O CONT (CT Detailed) CPT:15953 Reason for Study: eval for fx/dislocation Clinical History: Responsible Attending: DR JESSICA PATTEN Attending Contact Number: [phone] Resident Contact Number: FELL while roller blading. [...] 25, 2024 Date Verified: MAR 25, 2024 Mason Tender E-Sig: Report: CT THORACIC SPINE W/O CONT, CT LUMBAR SPINE W/O CONT HISTORY: eval for fx/dislcoation COMPARISON: No priors available. TECHNIQUE: The study was protocoled and supervised at the local [place] facility. 2807 images were subsequently received by the [place] National Teleradiology Program (NTP) for interpretation. Volumetric [...] fracture fragments. READING PHYSICIAN: Caio Rollins MD -[id number] 03/25/2024 18:30 PDT [facility] National Teleradiology Program [phone] (For Medical Practitioner Use Only) Attention Patients / Veterans: If you have questions or concerns about these test results, please contact your ordering provider or primary care team. Primary Interpreting Staff: RADIOLOGY,OUTSIDE SERVICE, Staff Physician / RADIOLOGY,OUTSIDE SERVICE [facility] Pathology Reports: +/- [...] the Encounter. The data comes from all [place] treatment facilities. Date/Time Pathology Report Provider Source [...] seen, and no masses are grossly identified. Continuous Improvement Lead sections of the wall from the body [...] Performing Laboratory: Surgical Pathology Report Performed By: [address]# [id number] [address] [place] [phone] $FTR - - - - - - [...] - - MERLE LAFLEUR STANDARD FORM 515 ID:[id number] SEX:M :1990 AGE: 34 LOC:AP[facility] PCP: Jaswinder Villafuerte MD /cydney/ CHELI MORALES Pathologist Signed: 04/21/2024 11:44 CHELI MORALES [facility] Encounter Notes: All associated encounter notes This section contains the clinical notes associated to the Encounter. Date/Time Encounter Note(s) Provider Source Apr 16, 2024 11:56 AM RESPIRATORY THERAP Y CONSULT: LOCAL TITLE: RESPIRATORY THERAPY ASSESSMENT CONSULT RESULTS NM STANDARD TITLE: RESPIRATORY THERAPY CONSULT DATE OF NOTE: APR 16, 2024@11:56 ENTRY DATE: APR 16, 2024@11:57 AUTHOR: ELIN BEYER COSIGNER: URGENCY: STATUS: COMPLETED Respiratory Therapy Protocol Reassessment: No changes indicated Patient remains in stable condition. Respiratory Therapy will continue to assess and monitor for any changes in pulmonary status revealed via pulmonary history, surgical status, respiratory rate and pattern, mental status, breath sounds, cough, level of activity, chest x-ray and/or CT scan, oxygen requirements etc. Reassessment Plan of Care: Continue current Respiratory Therapy modalities per protocol. No changes clinically indicated at this time. Respiratory Therapy will continue to collaborate with all medical staff involved in this patient's care to maximize continuity of care. /cydney/ ELIN BEYRE REGISTERED RESPIRATORY THERAPIST Signed: 04/16/2024 11:[address] [facility] Apr 16, 2024 09:12 AM SURGERY NOTE: LOCAL TITLE: GENERAL SURGERY NOTE ST[facility] STANDARD TITLE: SURGERY NOTE DATE OF NOTE: APR 16, 2024@09:12 ENTRY DATE: APR 16, 2024@09:12:22 AUTHOR: MANISH MCCARTNEY COSIGNER: TIFFANY ARNETT III URGENCY: STATUS: COMPLETED GENERAL SURGERY NOTE STL Has ADDENDA GENERAL SURGERY 1 CONSULT == Chief complaint: RUQ abdominal pain, nausea, emesis History of present illness: 34-year-old man with PMH of depression, anxiety, MARY, GERD, MSK pain, migraines, TBI, symptomatic cholelithiasis currently pending OR planning for elective lap ying that presented to the ED with RUQ abdominal pain and nausea since last night. Per chart review, he has had ~weekly, severe upper abd pain that lasts hours to days over the last 2 years with associated n/v, which has led to many presentations to the ED, most recently on (01/18/24). 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 He had a CT last year which was overall unremarkable for etiology for pain. No prior abdominal surgeries. He had an U/S at another [place], which showed cholelithiasis (10/2023), and HIDA that was read as normal. GI reports that he has been on Prilosec and famotidine which didn't help, and that he has had intermittently elevated LFTs. EGD was done on (02/04/24) notes erythematous duodenopathy, gastritis, small hiatal hernia, LA Grade A esophagitis with no bleeding; no specimens were collected. He was scheduled for lap ying on 03/19/24 but called our office to re-schedule for a later time as he had a family emergency. on 03/25/24 he presented to the ED s/p fall while rollerblading and was found to have acute fractures involving the superior endplates of the L2 and L3 vertebral bodies with up to 30% height loss. He had a clinic visit scheduled with NSGY spine today (04/16/24) to discuss management options. Per patient, he developed RUQ pain with nausea and vomiting last night. He took Zofran and hydrocodone but denies any relief. He presented to the ED for evaluation. In the ED, laboratory work up was unremarkable (WBC 8.8, Tbili 0.5, normal AST/ALT). CT A/P notes low density gallstones are faintly visualized in the gallbladder, otherwise the gallbladder appears identical to the prior examination except for some very subtle fat stranding. Surgery was consulted given concern for gallbladder vs biliary pathology. The patient does not otherwise endorse any symptoms. He denies fevers, chills, LOERA, SOB, dyspnea, myalgia, arthralgia. PMH: 1) Depressive disorder 2) Sleep disorder [...] rhinitis 18) Vitamin D deficiency 19) Anxiety PSH: no prior abdominal surgical hx FH: non-contributory SH: social drinker ROS: 10-point review of systems negative except as noted in HPI. Vitals: Temp: 98.6 F [37.0 C] (04/16/2024 03:12) PULSE:84 (04/16/2024 09:04) BP: 113/72 (04/16/2024 09:04) RESP: 16 (04/16/2024 09:04) O2 Sat: 99% (04/16/2024 03:12) Pain: 4 (04/16/2024 03:12) Weight: 245 lb [111.13 kg] (03/04/2024 07:22) BMI: 31.5 General: NAD, calm, comfortable HEENT: NCAT Cardiac: RRR Pulm: unlabored breathing on room air Abd: soft, non-distended, mild tenderness in the RUQ Extr: WWP, no edema, no clubbing Skin: no lesions or ecchymoses visible Active Outpatient Medications (including Supplies): Active Outpatient [...] REFLUX. TAKE 30 MINUTES PRIOR TO FOOD. LABS: WBC 8.8 10*3/uL (04/16/24 03:25) HGB HGB 15.5 g/dL 04/16/2024 03:25 HCT 46.6 % (04/16/24 03:25) PLATELETS PLT 215 10*3/uL 04/16/2024 03:25 BMP SODIUM 143 mEq/L 04/16/2024 03:25 POTASSIUM 4.0 mEq/L 04/16/2024 03:25 CHLORIDE 107 mEq/L 04/16/2024 03:25 UREA NITROGEN 16.1 mg/dL 04/16/2024 03:25 CREATININE 1.42 H mg/dL 04/16/2024 03:25 CALCIUM 9.9 mg/dL 04/16/2024 03:25 CARBON DIOXIDE 30 mEq/L 04/16/2024 03:25 GLUCOSE 108 H mg/dL 04/16/2024 03:25 EGFR (CKD-EPI 2020) 66.1 04/16/2024 03:25 SODIUM 143 mEq/L 04/16/2024 03:25 POTASSIUM 4.0 mEq/L 04/16/2024 03:25 CHLORIDE 107 mEq/L 04/16/2024 03:25 UREA NITROGEN 16.1 mg/dL 04/16/2024 03:25 CREATININE 1.42 H mg/dL 04/16/2024 03:25 CALCIUM 9.9 mg/dL 04/16/2024 03:25 PROTEIN 6.9 g/dL 04/16/2024 03:25 ALBUMIN 4.4 g/dL 04/16/2024 03:25 ALKALINE PHOSPHATASE 97 U/L 04/16/2024 03:25 ALT/SGPT 14 U/L 04/16/2024 03:25 AST/SGOT 13 U/L 04/16/2024 03:25 TOTAL BILIRUBIN 0.5 mg/dL 04/16/2024 03:25 CARBON DIOXIDE 30 mEq/L 04/16/2024 03:25 GLUCOSE 108 H mg/dL 04/16/2024 03:25 EGFR (CKD-EPI 2020) 66.1 04/16/2024 03:25 INR ____ IMAGING: CXR Impression for CHEST PORTABLE, 03/11/23, case 168 Normal AP chest. READING PHYSICIAN: Dawson Gonzales -[id number] 03/11/2023 18:41 CDT [facility] National Teleradiology Program [phone] (For Medical Practitioner Use Only) Attention Patients / Veterans: If you have questions or concerns about these test results, please contact your ordering provider or primary care team. KUB No data available for: ABDOMEN-KUB CT Date Procedure CPT Status Case # 03/25/2024 CT THORACIC SPINE W/O CONT 54962 Verified 3007 Acute fractures involving the superior L2 and L3 vertebral body endplates. Fracture planes do not involve the posterior vertebral body, and there is no retropulsion of fracture fragments. READING PHYSICIAN: Caio Rollins MD -[id number] 03/25/2024 18:30 PDT [facility] National Teleradiology Program [phone] (For Medical Practitioner Use Only) Attention Patients / Veterans: If you have questions or concerns about these test results, please contact your ordering provider or primary care team. 04/16/2024 CT ABDOMEN AND PELVIS W/CONTRAST [id number] Verified 8108 Findings on this examination do not reliably confirm or exclude acute cholecystitis. The imaging exam of choice with the greatest accuracy for acute cholecystitis is a nuclear HIDA scan PATHOLOGY: none Assessment and Plan: 34-year-old MALE with PMH [...] for a lap vs robotic assisted cholecystectomy. - Admit the patient to surgery I service for pain control and operative planning - NPO midnight - tentative plan for OR tmrw - Labs tonight Manish Mccartney MD /cydney/ MANISH MCCARTNEY Herbicide Sprayer Signed: 04/16/2024 11:08 /cydney/ Tiffany Arnett III, MD [facility] General Surgery Attending Cosigned: 04/16/2024 15:26 04/16/2024 ADDENDUM STATUS: COMPLETED The patient was seen and examined on: 04/16/24 I was immediately available for supervision. I have discussed the patient with the resident team and I agree with the above. I have reviewed the patient's prior notes, pertinent labs and imaging reports, and personally reviewed relevant imaging. 34 year-old male with intractible biliary colic. OR tomorrow for robotic cholecystectomy /cydney/ Tiffany Arnett III, MD [facility] General Surgery Attending Signed: 04/16/2024 15:27 MANISH MCCARTNEY [facility] Apr 16, 2024 07:28 AM PHYSICIAN EMERGENC Y DEPT NOTE: LOCAL TITLE: EMERGENCY DEPARTMENT STL STANDARD TITLE: PHYSICIAN EMERGENCY DEPT NOTE DATE OF NOTE: APR 16, 2024@07:28 ENTRY DATE: APR 16, 2024@07:28:56 AUTHOR: KYLE GRAY COSIGNER: URGENCY: STATUS: COMPLETED TRIAGE CHIEF COMPLAINT: Abdominal pain with nausea and vomiting for last few hours HPI: Patient is a 34-year-old male patient with past medical history of recent symptomatic cholelithiasis, who is eventually planned to have cholecystectomy, presented to the emergency room with complaints of having 3 hours of nausea, vomiting and abdominal pain in the right upper quadrant area. The patient was seen by the physician earlier in the ER, and this is a supplemental note after reassessment. Patient has had blood work done, CT scan of the abdomen pelvis has been done and now the patient is undergoing ultrasound of the right upper quadrant to evaluate his gallbladder to rule out acute cholecystitis. Patient recently had a fall about 2 weeks ago while rollerblading and was found to have acute fractures involving the superior L2 and L3 vertebral body endplates. His cholecystectomy had been placed on hold due to these recent fractures that he developed. REVIEW OF SYSTEMS: See HPI for further [...] REFLUX. TAKE 30 MINUTES PRIOR TO FOOD. 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 Any medication discrepancies have been resolved. Patient will be provided with an updated list of his/her medication(s). SURGICAL HISTORY: not pertinent FAMILY HISTORY: not pertinent SOCIAL HISTORY: Social History Main Topics: Smoking status: No data available for: Current Tobacco User Alcohol Use: not indorsed Negative mg/dL (04/18/22 12:22) Illicit Drug Use: not indorsed Sexual Activity: Other Topics of Concern: ALLERGIES: Review of patient's allergies indicates: Patient has answered NKA PHYSICAL EXAM: VITAL SIGNS: 127/92 (04/16/2024 03:12)88 (04/16/2024 03:12)99% (04/16/2024 03:12)98.6 F [37.0 C] (04/16/2024 03:12)18 (04/16/2024 03:12) Measurement DT WEIGHT LB(KG)[BMI] 03/04/2024 07:22 245(111.13)[32*] 02/07/2024 07:56 249.8(113.31)[33*] 02/03/2024 08:26 248.1(112.54)[32*] Measurement DT PAIN 04/16/2024 03:12 4 CONSTITUTIONAL: No acute distress, Non-toxic appearance HENT: airway patent, oropharynx clear EYES: Conj pink, sclera clear NECK: Normal range of motion, No tenderness, Supple, No stridor, No LAD. CARDIOVASCULAR: Normal heart rate, Normal rhythm, No murmurs, No rubs, No gallops. PULMONARY/CHEST: CTA bilaterally, thorax stable without tenderness ABDOMEN: Bowel sounds normal, Soft, flat, No tenderness, No bruit, No masses, No pulsatile masses BACK: No tenderness, No CVA tenderness : RECTAL: EXTREMITIES: Normal range of motion, Intact distal pulses, No edema, No tenderness LYMPHATIC: No LAD appreciated NEUROLOGIC: Alert & oriented x 3, Normal motor function, Normal gait, no ataxia, No focal deficits appreciated on cursory screening exam SKIN: Warm, Dry, No erythema, No rash LABS: Reviewed all current labs including CBC, CMP RADIOLOGY: CT scan of the abdomen pelvis reviewed. Ultrasound of the right upper quadrant: Impression: No cholelithiasis. Mild thickening of the [...] findings. Primary Interpreting Staff: JAIRO GARCIA, RADIOLOGIST (Mason Tender) Primary Interpreting Resident: JOSE ROBERTO RAMSAY, Resident Physician /STJ ECG IMPRESSION: ED COURSE & MEDICAL DECISION MAKING: Nursing notes, medications, vital signs, allergies and pertinent labs & imaging studies reviewed (see chart for details) with lab results reviewed with patient/family and radiology results reviewed with patient/family. Stable, alert, nontoxic, nonfocal with clinically apparent right upper quadrant abdominal pain with nausea and vomiting. Rule out acute cholecystitis. Patient was seen by Dr. Walton earlier in the ER and this is a follow-up note after evaluation since the patient is boarding in the ER for likely inpatient admission. Patient has been seen and reevaluated by me in the ER and agree with assessment that will be entered in shortly by Dr. Walton. Patient has been seen by general surgery and awaiting a decision about inpatient admission. At 1000 the patient was evaluated in person by general surgery again. Awaiting decision by surgery for further management. Patient is being admitted to surgery service. Patient will be taken for cholecystectomy tomorrow morning to the OR. Admit to surgery. PONY RIDE ATTENDANT SERVICE/TIME: MEDICATIONS GIVEN IN ED: [X] YES [ ] NO Patient was given Zofran and Dilaudid by Dr. Walton who saw the patient earlier DIFFERENTIAL DIAGNOSES CONSIDERED: DECISION to ADMIT / DISCHARGE TIME: SMOKING CESSATION RECOMMENDATION: N/A ABNORMAL BLOOD PRESSURE: Stable BP DISPOSITION CONDITION:[ ] Improved [ ] Unchanged [ ] Deteriorated CLINICAL IMPRESSION: 1 -right upper quadrant abdominal pain with nausea and vomiting, rule out acute cholecystitis 2 - 3 - DISCHARGE INSTRUCTIONS AND PATIENT-DIRECTED FOLLOW-UP RECOMMENDATIONS: Patient admitted to surgery DIET: Clear liquid diet until midnight, n.p.o. after that ADDITIONAL SIGNATURE PCP: [X] YES [ ] NO [ ] not [...] TAKE 30 MINUTES PRIOR TO FOOD. /cydney/ Kyle Gray MD Staff Physician Signed: 04/16/2024 12:51 Receipt Acknowledged By: 04/16/2024 13:09 /es/ JERSON ORTEGA MSN,DICE TABLE OPERATOR-BC NURSE PRACTITIONER for SHEELA CAMARILLO 04/16/2024 14:34 /es/ MANUEL MÁRQUEZ SET ILLUSTRATOR REGISTERED NURSE KYLE GRAY [facility] Apr 16, 2024 07:18 AM ADDENDUM: LOCAL TITLE: Addendum STANDARD TITLE: ADDENDUM DATE OF NOTE: APR 16, 2024@07:18:21 ENTRY DATE: APR 16, 2024@07:18:22 AUTHOR: MADYSON OLIVAS COSIGNER: URGENCY: STATUS: COMPLETED 58 - the following med given per order from Dr. Walton: HYDROMORPHONE INJ,SOLN 1MG/0.5ML IVP ONE-TIME STAT (FOR E.R. ADMINISTRATION ONLY) Indication: FOR SEVERE PAIN pt tolerated well with no adverse effects. med counted, pulled and wasted with AMAN Mar. /cydney/ MADYSON CHAMBERS RN REGISTERED NURSE Signed: 04/16/2024 07:19 Receipt Acknowledged By: 04/17/2024 06:27 /es/ RICHIE CHAMBERS RN REGISTERED NURSE --- Original Document --- 04/16/24 EMERGENCY DEPARTMENT TRIAGE NOTE: Emergency Department/Urgent Care Center Triage Patient age:34 Sex: MALE On arrival patient was: AMBULATORY Patient phone number: Allergies: Patient has answered NKA Subjective/Chief Complaint: abd pain Objective: Pt to ER with complaints of RUQ pain with nausea and vomiting for the last few hours. Pt reports hx of gallstones and was scheduled to have has gallbladder removed but due to recent injury to back he had to postpone. Pt states he took Zofran and hydrocodone SMALL ANIMAL VETERINARIAN but denies any relief. The patient is not a fall risk. BP: 127/92 P: 88 R: 18 WT: T: 98.6 HT: Sepsis Screening Evaluation Emergency Severity Index (NIRMAL) level Level 3 Current Medications: Active Outpatient Medications (including Supplies): Active Outpatient [...] REFLUX. TAKE 30 MINUTES PRIOR TO FOOD. Current Problems: 1) Depressive disorder 2) Sleep disorder 3) [...] rhinitis 18) Vitamin D deficiency 19) Anxiety Suicide Screen: [place] Suicide Severity Rating Scale (C-SSRS) screener 1. Over the past month, have you [...] due to responses to other questions. /cydney/ PATEL RICKS BSN RN REGISTERED NURSE Signed: 04/16/2024 03:16 04/16/2024 ADDENDUM STATUS: COMPLETED 0306 - pt to rm 109 from triage. 0320 - 20g pal to left ac. draws and flushes with ease. secured with transparent dressing. covered with disinfectant caps. blood specimens obtained and sent to lab. 0333 - the following meds given per order from Dr. Walton: ONDANSETRON INJ,SOLN 4MG/2ML IVP ONE-TIME STAT (FOR E.R. ADMINISTRATION ONLY) Indication: FOR NAUSEA/VOMITING SODIUM CHLORIDE 0.9% INJ,SOLN 1000 ml IV LABEL@0 with total volume 1L Indication: FOR VOLUME REPLACEMENT pt tolerated well with no adverse effects. normal saline currently infusing without difficulty. 0351 - Dr. Walton in evaluating pt at this time. 0358 - the following med given per order from Dr. Walton: HYDROMORPHONE INJ,SOLN 1MG/0.5ML IVP ONE-TIME STAT (FOR E.R. ADMINISTRATION ONLY) Indication: FOR SEVERE PAIN pt tolerated well with no adverse effects. pt reports almost immediate relief of pain. 0400 - Pt resting in bed with no needs at this time. Call light within reach. Bedrails up x1 for patient safety. NAD noted, respirations even and non-labored. 0500 - Pt resting in bed with no needs at this time. Call light within reach. Bedrails up x1 for patient safety. NAD noted, respirations even and non-labored. 0520 - the following med given per order from Dr. Walton: ONDANSETRON INJ,SOLN 4MG/2ML IVP ONE-TIME STAT (FOR E.R. ADMINISTRATION ONLY) Indication: FOR NAUSEA/VOMITING pt tolerated well with no adverse effects. 0528 - the following meds given per order from Dr. Walton: HYDROMORPHONE INJ,SOLN 0.5MG/0.25ML IVP ONE-TIME STAT (FOR E.R. ADMINISTRATION ONLY) Indication: FOR SEVERE PAIN pt tolerated well with no adverse effects. med counted, pulled, and wasted with AMAN Mar. 0556 - Dr. Walton in to speak with pt at this time. 0600 - Pt resting in bed with no needs at this time. Call light within reach. Bedrails up x1 for patient safety. NAD noted, respirations even and non-labored. 0658 - the following med given per order from Dr. Walton: HYDROMORPHONE INJ,SOLN 1MG/0.5ML IVP ONE-TIME STAT (FOR E.R. ADMINISTRATION ONLY) Indication: FOR SEVERE PAIN pt tolerated well with no adverse effects. 0710 - pt taken to ultrasound via w/c, transported by this nurse. 0758 - pt back to rm 109 from ultrasound. 0806 - Dr. Gray in speaking with pt at this time. 0811 - Pt resting in bed with no needs at this time. Call light within reach. Bedrails up x1 for patient safety. NAD noted, respirations even and non-labored. 0900 - Pt resting in bed with eyes closed and no needs at this time. Call light within reach. Bedrails up x1 for patient safety. NAD noted, respirations even and non-labored. 0904 - Blood Pressure: 113/72 Pulse: 84 Respiratory Rate: 16 Pulse Oximetry: 96% 927 - report given to AMAN Templeton. /cydney/ MADYSON CHAMBERS RN REGISTERED NURSE Signed: 04/16/2024 09:29 04/16/2024 ADDENDUM STATUS: COMPLETED 357 - the following med given per order from Dr. Walton: HYDROMORPHONE INJ,SOLN 1MG/0.5ML IVP ONE-TIME STAT (FOR E.R. ADMINISTRATION ONLY) Indication: FOR SEVERE PAIN pt tolerated well with no adverse effects. med counted and pulled with AMAN Mar. /cydney/ MADYSON CHAMBERS RN REGISTERED NURSE Signed: 04/16/2024 04:00 Receipt Acknowledged By: * AWAITING SIGNATURE * RICHIE CELIS 04/16/2024 ADDENDUM STATUS: COMPLETED 527 - the following meds given per order from Dr. Walton: HYDROMORPHONE INJ,SOLN 0.5MG/0.25ML IVP ONE-TIME STAT (FOR E.R. ADMINISTRATION ONLY) Indication: FOR SEVERE PAIN pt tolerated well with no adverse effects. med counted, pulled, and wasted with AMAN Mar. /cydney/ MADYSON CHAMBERS RN REGISTERED NURSE Signed: 04/16/2024 05:30 Receipt Acknowledged By: * AWAITING SIGNATURE * RICHIE CELIS 04/16/2024 ADDENDUM STATUS: COMPLETED 0939: rounded on pt, appears to be sleeping in no observable distress respirations even and unlabored, call light in reach 1125: rounded on pt, awake and alert, confirmed pt aware of plan to admit, per pt surgery will be 04/18 denied any needs encouraged to call if needed given call light /cydney/ REYES VALLADARES, RN REGISTERED NURSE Signed: 04/16/2024 12:03 04/16/2024 ADDENDUM STATUS: COMPLETED 1440: attempted to call report to 7S 1455: safety check on pt, appears to be sleeping in no observable distress respirations even and unlabored 1515 report to assigned 7S RN rounded on pt, related mild pain, declined offer of pain medications pt to 7S in WC, ambulatory to WC with steady gait in no observable distress, no change in assessment /cydney/ REYES VALLADARES, RN REGISTERED NURSE Signed: 04/16/2024 15:29 MADYSON OLIVAS [facility] Apr 16, 2024 05:30 AM ADDENDUM: LOCAL TITLE: Addendum STANDARD TITLE: ADDENDUM DATE OF NOTE: APR 16, 2024@05:30:15 ENTRY DATE: APR 16, 2024@05:30:15 AUTHOR: MADYSON OLIVAS EXP COSIGNER: URGENCY: STATUS: COMPLETED 527 - the following meds given per order from Dr. Walton: HYDROMORPHONE INJ,SOLN 0.5MG/0.25ML IVP ONE-TIME STAT (FOR E.R. ADMINISTRATION ONLY) Indication: FOR SEVERE PAIN pt tolerated well with no adverse effects. med counted, pulled, and wasted with AMAN Mar. /cydney/ MADYSON CHAMBERS RN REGISTERED NURSE Signed: 04/16/2024 05:30 Receipt Acknowledged By: 04/17/2024 06:27 /cydney/ RICHIE CHAMBERS RN REGISTERED NURSE --- Original Document --- 04/16/24 EMERGENCY DEPARTMENT TRIAGE NOTE: Emergency Department/Urgent Care Center Triage Patient age:34 Sex: MALE On arrival patient was: AMBULATORY Patient phone number: Allergies: Patient has answered NKA Subjective/Chief Complaint: abd pain Objective: Pt to ER with complaints of RUQ pain with nausea and vomiting for the last few hours. Pt reports hx of gallstones and was scheduled to have has gallbladder removed but due to recent injury to back he had to postpone. Pt states he took Zofran and hydrocodone SMALL ANIMAL VETERINARIAN but denies any relief. The patient is not a fall risk. BP: 127/92 P: 88 R: 18 WT: T: 98.6 HT: Sepsis Screening Evaluation Emergency Severity Index (NIRMAL) level Level 3 Current Medications: Active Outpatient Medications (including Supplies): Active Outpatient [...] REFLUX. TAKE 30 MINUTES PRIOR TO FOOD. Current Problems: 1) Depressive disorder 2) Sleep disorder 3) [...] rhinitis 18) Vitamin D deficiency 19) Anxiety Suicide Screen: [place] Suicide Severity Rating Scale (C-SSRS) screener 1. Over the past month, have you [...] due to responses to other questions. /cydney/ PATEL RICKS BSN RN REGISTERED NURSE Signed: 04/16/2024 03:16 04/16/2024 ADDENDUM STATUS: COMPLETED 0306 - pt to rm 109 from triage. 0320 - 20g pal to left ac. draws and flushes with ease. secured with transparent dressing. covered with disinfectant caps. blood specimens obtained and sent to lab. 0333 - the following meds given per order from Dr. Walton: ONDANSETRON INJ,SOLN 4MG/2ML IVP ONE-TIME STAT (FOR E.R. ADMINISTRATION ONLY) Indication: FOR NAUSEA/VOMITING SODIUM CHLORIDE 0.9% INJ,SOLN 1000 ml IV LABEL@0 with total volume 1L Indication: FOR VOLUME REPLACEMENT pt tolerated well with no adverse effects. normal saline currently infusing without difficulty. 0351 - Dr. Walton in evaluating pt at this time. 0358 - the following med given per order from Dr. Walton: HYDROMORPHONE INJ,SOLN 1MG/0.5ML IVP ONE-TIME STAT (FOR E.R. ADMINISTRATION ONLY) Indication: FOR SEVERE PAIN pt tolerated well with no adverse effects. pt reports almost immediate relief of pain. 0400 - Pt resting in bed with no needs at this time. Call light within reach. Bedrails up x1 for patient safety. NAD noted, respirations even and non-labored. 0500 - Pt resting in bed with no needs at this time. Call light within reach. Bedrails up x1 for patient safety. NAD noted, respirations even and non-labored. 0520 - the following med given per order from Dr. Walton: ONDANSETRON INJ,SOLN 4MG/2ML IVP ONE-TIME STAT (FOR E.R. ADMINISTRATION ONLY) Indication: FOR NAUSEA/VOMITING pt tolerated well with no adverse effects. 0528 - the following meds given per order from Dr. Walton: HYDROMORPHONE INJ,SOLN 0.5MG/0.25ML IVP ONE-TIME STAT (FOR E.R. ADMINISTRATION ONLY) Indication: FOR SEVERE PAIN pt tolerated well with no adverse effects. med counted, pulled, and wasted with AMAN Mar. 0556 - Dr. Walton in to speak with pt at this time. 0600 - Pt resting in bed with no needs at this time. Call light within reach. Bedrails up x1 for patient safety. NAD noted, respirations even and non-labored. 0658 - the following med given per order from Dr. Walton: HYDROMORPHONE INJ,SOLN 1MG/0.5ML IVP ONE-TIME STAT (FOR E.R. ADMINISTRATION ONLY) Indication: FOR SEVERE PAIN pt tolerated well with no adverse effects. 0710 - pt taken to ultrasound via w/c, transported by this nurse. 0758 - pt back to 109 from ultrasound. 0806 - Dr. Gray in speaking with pt at this time. 0811 - Pt resting in bed with no needs at this time. Call light within reach. Bedrails up x1 for patient safety. NAD noted, respirations even and non-labored. 0900 - Pt resting in bed with eyes closed and no needs at this time. Call light within reach. Bedrails up x1 for patient safety. NAD noted, respirations even and non-labored. 0904 - Blood Pressure: 113/72 Pulse: 84 Respiratory Rate: 16 Pulse Oximetry: 96% 28 - report given to AMAN Templeton. /cydney/ MADYSON CHAMBERS RN REGISTERED NURSE Signed: 04/16/2024 09:29 04/16/2024 ADDENDUM STATUS: COMPLETED 8 - the following med given per order from Dr. Walton: HYDROMORPHONE INJ,SOLN 1MG/0.5ML IVP ONE-TIME STAT (FOR E.R. ADMINISTRATION ONLY) Indication: FOR SEVERE PAIN pt tolerated well with no adverse effects. med counted and pulled with AMAN Mar. /cydney/ MADYSON CHAMBERS RN REGISTERED NURSE Signed: 04/16/2024 04:00 Receipt Acknowledged By: * AWAITING SIGNATURE * RICHIE CELIS 04/16/2024 ADDENDUM STATUS: COMPLETED 0658 - the following med given per order from Dr. Walton: HYDROMORPHONE INJ,SOLN 1MG/0.5ML IVP ONE-TIME STAT (FOR E.R. ADMINISTRATION ONLY) Indication: FOR SEVERE PAIN pt tolerated well with no adverse effects. med counted, pulled and wasted with AMAN Mar. /cydney/ MADYSON CHAMBERS RN REGISTERED NURSE Signed: 04/16/2024 07:19 Receipt Acknowledged By: 04/17/2024 06:27 /es/ RICHIE CHAMBERS RN REGISTERED NURSE 04/16/2024 ADDENDUM STATUS: COMPLETED 0939: rounded on pt, appears to be sleeping in no observable distress respirations even and unlabored, call light in reach 1125: rounded on pt, awake and alert, confirmed pt aware of plan to admit, per pt surgery will be 04/18 denied any needs encouraged to call if needed given call light /cydney/ REYES VALLADARES, RN REGISTERED NURSE Signed: 04/16/2024 12:03 04/16/2024 ADDENDUM STATUS: COMPLETED 1440: attempted to call report to 7S 1455: safety check on pt, appears to be sleeping in no observable distress respirations even and unlabored 1515 report to assigned 7S RN rounded on pt, related mild pain, declined offer of pain medications pt to 7S in WC, ambulatory to WC with steady gait in no observable distress, no change in assessment /cydney/ REYES VALLADARES, RN REGISTERED NURSE Signed: 04/16/2024 15:29 MADYSON OLIVAS [facility] Apr 16, 2024 03:59 AM ADDENDUM: LOCAL TITLE: Addendum STANDARD TITLE: ADDENDUM DATE OF NOTE: APR 16, 2024@03:59:29 ENTRY DATE: APR 16, 2024@03:59:30 AUTHOR: MADYSON OLIVAS EXP COSIGNER: URGENCY: STATUS: COMPLETED 0358 - the following med given per order from Dr. Walton: HYDROMORPHONE INJ,SOLN 1MG/0.5ML IVP ONE-TIME STAT (FOR E.R. ADMINISTRATION ONLY) Indication: FOR SEVERE PAIN pt tolerated well with no adverse effects. med counted and pulled with AMAN Mar. /cydney/ MADYSON CHAMBERS RN REGISTERED NURSE Signed: 04/16/2024 04:00 Receipt Acknowledged By: 04/17/2024 06:27 /cydney/ RICHIE CHAMBERS RN REGISTERED NURSE --- Original Document --- 04/16/24 EMERGENCY DEPARTMENT TRIAGE NOTE: Emergency Department/Urgent Care Center Triage Patient age:34 Sex: MALE On arrival patient was: AMBULATORY Patient phone number: Allergies: Patient has answered NKA Subjective/Chief Complaint: abd pain Objective: Pt to ER with complaints of RUQ pain with nausea and vomiting for the last few hours. Pt reports hx of gallstones and was scheduled to have has gallbladder removed but due to recent injury to back he had to postpone. Pt states he took Zofran and hydrocodone SMALL ANIMAL VETERINARIAN but denies any relief. The patient is not a fall risk. BP: 127/92 P: 88 R: 18 WT: T: 98.6 HT: Sepsis Screening Evaluation Emergency Severity Index (NIRMAL) level Level 3 Current Medications: Active Outpatient Medications (including Supplies): Active Outpatient [...] REFLUX. TAKE 30 MINUTES PRIOR TO FOOD. Current Problems: 1) Depressive disorder 2) Sleep disorder 3) [...] rhinitis 18) Vitamin D deficiency 19) Anxiety Suicide Screen: [place] Suicide Severity Rating Scale (C-SSRS) screener 1. Over the past month, have you [...] due to responses to other questions. /cydney/ PATEL STRICKLANDN RN REGISTERED NURSE Signed: 04/16/2024 03:16 04/16/2024 ADDENDUM STATUS: COMPLETED 0306 - pt to rm 109 from triage. 0320 - 20g pal to left ac. draws and flushes with ease. secured with transparent dressing. covered with disinfectant caps. blood specimens obtained and sent to lab. 0333 - the following meds given per order from Dr. Walton: ONDANSETRON INJ,SOLN 4MG/2ML IVP ONE-TIME STAT (FOR E.R. ADMINISTRATION ONLY) Indication: FOR NAUSEA/VOMITING SODIUM CHLORIDE 0.9% INJ,SOLN 1000 ml IV LABEL@0 with total volume 1L Indication: FOR VOLUME REPLACEMENT pt tolerated well with no adverse effects. normal saline currently infusing without difficulty. 0351 - Dr. Walton in evaluating pt at this time. 0358 - the following med given per order from Dr. Walton: HYDROMORPHONE INJ,SOLN 1MG/0.5ML IVP ONE-TIME STAT (FOR E.R. ADMINISTRATION ONLY) Indication: FOR SEVERE PAIN pt tolerated well with no adverse effects. pt reports almost immediate relief of pain. 0400 - Pt resting in bed with no needs at this time. Call light within reach. Bedrails up x1 for patient safety. NAD noted, respirations even and non-labored. 0500 - Pt resting in bed with no needs at this time. Call light within reach. Bedrails up x1 for patient safety. NAD noted, respirations even and non-labored. 0520 - the following med given per order from Dr. Walton: ONDANSETRON INJ,SOLN 4MG/2ML IVP ONE-TIME STAT (FOR E.R. ADMINISTRATION ONLY) Indication: FOR NAUSEA/VOMITING pt tolerated well with no adverse effects. 0528 - the following meds given per order from Dr. Walton: HYDROMORPHONE INJ,SOLN 0.5MG/0.25ML IVP ONE-TIME STAT (FOR E.R. ADMINISTRATION ONLY) Indication: FOR SEVERE PAIN pt tolerated well with no adverse effects. med counted, pulled, and wasted with AMAN Mar. 0556 - Dr. Walton in to speak with pt at this time. 0600 - Pt resting in bed with no needs at this time. Call light within reach. Bedrails up x1 for patient safety. NAD noted, respirations even and non-labored. 0658 - the following med given per order from Dr. Walton: HYDROMORPHONE INJ,SOLN 1MG/0.5ML IVP ONE-TIME STAT (FOR E.R. ADMINISTRATION ONLY) Indication: FOR SEVERE PAIN pt tolerated well with no adverse effects. 0710 - pt taken to ultrasound via w/c, transported by this nurse. 0758 - pt back to 109 from ultrasound. 0806 - Dr. Gray in speaking with pt at this time. 0811 - Pt resting in bed with no needs at this time. Call light within reach. Bedrails up x1 for patient safety. NAD noted, respirations even and non-labored. 0900 - Pt resting in bed with eyes closed and no needs at this time. Call light within reach. Bedrails up x1 for patient safety. NAD noted, respirations even and non-labored. 0904 - Blood Pressure: 113/72 Pulse: 84 Respiratory Rate: 16 Pulse Oximetry: 96% 927 - report given to AMAN Templeton. /cydney/ MADYSON CHAMBERS RN REGISTERED NURSE Signed: 04/16/2024 09:29 04/16/2024 ADDENDUM STATUS: COMPLETED 527 - the following meds given per order from Dr. Walton: HYDROMORPHONE INJ,SOLN 0.5MG/0.25ML IVP ONE-TIME STAT (FOR E.R. ADMINISTRATION ONLY) Indication: FOR SEVERE PAIN pt tolerated well with no adverse effects. med counted, pulled, and wasted with AMAN Mar. /cydney/ MADYSON CHAMBERS RN REGISTERED NURSE Signed: 04/16/2024 05:30 Receipt Acknowledged By: 04/17/2024 06:27 /cydney/ RICHIE CHAMBERS RN REGISTERED NURSE 04/16/2024 ADDENDUM STATUS: COMPLETED 657 - the following med given per order from Dr. Walton: HYDROMORPHONE INJ,SOLN 1MG/0.5ML IVP ONE-TIME STAT (FOR E.R. ADMINISTRATION ONLY) Indication: FOR SEVERE PAIN pt tolerated well with no adverse effects. med counted, pulled and wasted with AMAN Mar. /cydney/ MADYSON CHAMBERS RN REGISTERED NURSE Signed: 04/16/2024 07:19 Receipt Acknowledged By: 04/17/2024 06:27 /cydney/ RICHIE CHAMBERS RN REGISTERED NURSE 04/16/2024 ADDENDUM STATUS: COMPLETED 0939: rounded on pt, appears to be sleeping in no observable distress respirations even and unlabored, call light in reach 1125: rounded on pt, awake and alert, confirmed pt aware of plan to admit, per pt surgery will be 04/18 denied any needs encouraged to call if needed given call light /cydney/ REYES VALLADARES, RN REGISTERED NURSE Signed: 04/16/2024 12:03 04/16/2024 ADDENDUM STATUS: COMPLETED 1440: attempted to call report to 7S 1455: safety check on pt, appears to be sleeping in no observable distress respirations even and unlabored 1515 report to assigned 7S RN rounded on pt, related mild pain, declined offer of pain medications pt to 7S in WC, ambulatory to WC with steady gait in no observable distress, no change in assessment /cydney/ REYES VALLADARES, RN REGISTERED NURSE Signed: 04/16/2024 15:29 MADYSON OLIVAS [facility]rm[facility] Apr 16, 2024 03:37 AM NURSING NOTE: LOCAL TITLE: [facility] NSG IV INSERTION AND MAINTENANCE STANDARD TITLE: NURSING NOTE DATE OF NOTE: APR 16, 2024@03:37 ENTRY DATE: APR 16, 2024@03:37:07 AUTHOR: MADYSON OLIVAS EXP COSIGNER: URGENCY: STATUS: COMPLETED Version 2.2 Charting in accordance with [place] [employer]ED [place] [employer] STANDARD (NDAES) ACUTE INPATIENT/REHABILITATION NURSING ADMISSION SCREENING, ASSESSMENT, AND STANDARDS OF CARE ======== IV Line Insertion and Maintenance ======== ======== Peripheral IV ======== Line #1: Insertion: Date/Time: Mar@03:37 Inserted by (name): AMAN Morrison Location: Left, Antecubital Gauge: / MADYSON CHAMBERS RN REGISTERED NURSE Signed: 04/16/2024 03:38 MADYSON OLIVAS [facility] Apr 16, 2024 03:24 AM PHYSICIAN EMERGENC Y DEPT NOTE: LOCAL TITLE: EMERGENCY DEPARTMENT ST STANDARD TITLE: PHYSICIAN EMERGENCY DEPT NOTE DATE OF NOTE: APR 16, 2024@03:24 ENTRY DATE: APR 16, 2024@03:24:08 AUTHOR: TELMA WALTON EXP COSIGNER: URGENCY: STATUS: COMPLETED TRIAGE CHIEF COMPLAINT: HPI: Patient is a 34yo M with a ho cholelithiasis who was meant to have his gallbladder out and planned. However, he then had to delay d/t acute vertebral fracture for which he is following with neurosurgery and they are deciding on whether he needs to have surgical intervention. Since 9p, he is now with n, emesis and RUQ abd pain after eating a quesadilla. REVIEW OF SYSTEMS: See HPI for further [...] REFLUX. TAKE 30 MINUTES PRIOR TO FOOD. 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 Any medication discrepancies have been resolved. Patient will be provided with an updated list of his/her medication(s). SURGICAL HISTORY: not pertinent FAMILY HISTORY: not pertinent SOCIAL HISTORY: ALLERGIES: Review of patient's allergies indicates: Patient has answered NKA PHYSICAL EXAM: General: emesis throughout, mild distress d/t pain Abd: RUQ abd pain, not distended, no rebound, + guarding VITAL SIGNS: 127/92 (04/16/2024 03:12)88 (04/16/2024 03:12)99% (04/16/2024 03:12)98.6 F [37.0 C] (04/16/2024 03:12)18 (04/16/2024 03:12)The OBJECT WEIGHT LAST 3 was NOT found...Contact IRM. MAThe OBJECT was NOT found...Contact IRM.PAIN ASSESSMENTThe OBJECT was NOT found...Contact IRM. Measurement DT PAIN 04/16/2024 03:12 4 LABS: CMP: wnl CBC: wnl, no leukocytosis lipase: wnl GGT: wnl RADIOLOGY: CT : Low density gallstones are faintly visualized in [...] acute cholecystitis is a nuclear HIDA scan ED COURSE & MEDICAL DECISION MAKING: Nursing notes, medications, vital signs, allergies and pertinent labs & imaging studies reviewed (see chart for details) with lab results reviewed with patient/family and radiology results reviewed with patient/family. Stable, alert, nontoxic, nonfocal with clinically apparent RUQ abd pain. He has a ho cholelithiasis and had planned surgery until he had to hold d/t vertebral fractures. 1mg IV dilaudid/zofran pesistent pain more dilaudid CT scan with cholelithiasis and mild fat stranding but no acue evidence of acute cholecystitis. more dilaudid will consult surg for eval plan for US for eval [employer] ATTENDANT SERVICE/TIME: 615am MEDICATIONS GIVEN IN ED: [x] YES [ ] NO DIFFERENTIAL DIAGNOSES CONSIDERED: as above DECISION to ADMIT / DISCHARGE TIME: DISPOSITION CONDITION:[x] Improved [ ] Unchanged [ ] Deteriorated CLINICAL IMPRESSION: 1 - 2 - 3 - DISCHARGE INSTRUCTIONS AND PATIENT-DIRECTED FOLLOW-UP RECOMMENDATIONS: DIET: regular ACTIVITY: ad hari NEW MEDS: MEDICATION RECONCILIATION: CONTINUE ALL PRESCRIBED MEDICATIONS DIRECTED EXCEPT: FOLLOW-UP WITH PRIMARY CLASSIFICATIONS OFFICER CC/CM/SPECIALIST: routine in 1-2 weeks if not improving, sooner if worse RETURN TO EMERGENCY: if any worries or concerns ADDITIONAL SIGNATURE PCP: [ ] YES [ ] NO [ ] not [...] TAKE 30 MINUTES PRIOR TO FOOD. /cydney/ Telma Walton MD, PhD Staff Physician Signed: 04/18/2024 02:16 Receipt Acknowledged By: 04/28/2024 02:33 /cydney/ Kyle Gray MD Staff Physician TELMA WALTON [facility] Apr 16, 2024 03:13 AM EMERGENCY DEPT TRI AGE NOTE: LOCAL TITLE: EMERGENCY DEPARTMENT TRIAGE NOTE STANDARD TITLE: EMERGENCY DEPT TRIAGE NOTE DATE OF NOTE: APR 16, 2024@03:13 ENTRY DATE: APR 16, 2024@03:13:04 AUTHOR: PATEL RICKS COSIGNER: URGENCY: STATUS: COMPLETED EMERGENCY DEPARTMENT TRIAGE NOTE Has ADDENDA Emergency Department/Urgent Care Center Triage Patient age:34 Sex: MALE On arrival patient was: AMBULATORY Patient phone number: Allergies: Patient has answered NKA Subjective/Chief Complaint: abd pain Objective: Pt to ER with complaints of RUQ pain with nausea and vomiting for the last few hours. Pt reports hx of gallstones and was scheduled to have has gallbladder removed but due to recent injury to back he had to postpone. Pt states he took Zofran and hydrocodone [employer] but denies any relief. The patient is not a fall risk. BP: 127/92 P: 88 R: 18 WT: T: 98.6 HT: Sepsis Screening Evaluation Emergency Severity Index (NIRMAL) level Level 3 Current Medications: Active Outpatient Medications (including Supplies): Active Outpatient [...] REFLUX. TAKE 30 MINUTES PRIOR TO FOOD. Current Problems: 1) Depressive disorder 2) Sleep disorder 3) [...] rhinitis 18) Vitamin D deficiency 19) Anxiety Suicide Screen: [place] Suicide Severity Rating Scale (C-SSRS) screener 1. Over the past month, have you [...] due to responses to other questions. /cydney/ PATEL STRICKLANDN RN REGISTERED NURSE Signed: 04/16/2024 03:16 04/16/2024 ADDENDUM STATUS: COMPLETED 0306 - pt to rm 109 from triage. 0320 - 20g pal to left ac. draws and flushes with ease. secured with transparent dressing. covered with disinfectant caps. blood specimens obtained and sent to lab. 0333 - the following meds given per order from Dr. Walton: ONDANSETRON INJ,SOLN 4MG/2ML IVP ONE-TIME STAT (FOR E.R. ADMINISTRATION ONLY) Indication: FOR NAUSEA/VOMITING SODIUM CHLORIDE 0.9% INJ,SOLN 1000 ml IV LABEL@0 with total volume 1L Indication: FOR VOLUME REPLACEMENT pt tolerated well with no adverse effects. normal saline currently infusing without difficulty. 0351 - Dr. Walton in evaluating pt at this time. 0358 - the following med given per order from Dr. Walton: HYDROMORPHONE INJ,SOLN 1MG/0.5ML IVP ONE-TIME STAT (FOR E.R. ADMINISTRATION ONLY) Indication: FOR SEVERE PAIN pt tolerated well with no adverse effects. pt reports almost immediate relief of pain. 0400 - Pt resting in bed with no needs at this time. Call light within reach. Bedrails up x1 for patient safety. NAD noted, respirations even and non-labored. 0500 - Pt resting in bed with no needs at this time. Call light within reach. Bedrails up x1 for patient safety. NAD noted, respirations even and non-labored. 0520 - the following med given per order from Dr. Walton: ONDANSETRON INJ,SOLN 4MG/2ML IVP ONE-TIME STAT (FOR E.R. ADMINISTRATION ONLY) Indication: FOR NAUSEA/VOMITING pt tolerated well with no adverse effects. 0528 - the following meds given per order from Dr. Walton: HYDROMORPHONE INJ,SOLN 0.5MG/0.25ML IVP ONE-TIME STAT (FOR E.R. ADMINISTRATION ONLY) Indication: FOR SEVERE PAIN pt tolerated well with no adverse effects. med counted, pulled, and wasted with AMAN Mar. 0556 - Dr. Walton in to speak with pt at this time. 0600 - Pt resting in bed with no needs at this time. Call light within reach. Bedrails up x1 for patient safety. NAD noted, respirations even and non-labored. 0658 - the following med given per order from Dr. Walton: HYDROMORPHONE INJ,SOLN 1MG/0.5ML IVP ONE-TIME STAT (FOR E.R. ADMINISTRATION ONLY) Indication: FOR SEVERE PAIN pt tolerated well with no adverse effects. 0710 - pt taken to ultrasound via w/c, transported by this nurse. 0758 - pt back to rm 109 from ultrasound. 0806 - Dr. Gray in speaking with pt at this time. 0811 - Pt resting in bed with no needs at this time. Call light within reach. Bedrails up x1 for patient safety. NAD noted, respirations even and non-labored. 0900 - Pt resting in bed with eyes closed and no needs at this time. Call light within reach. Bedrails up x1 for patient safety. NAD noted, respirations even and non-labored. 0904 - Blood Pressure: 113/72 Pulse: 84 Respiratory Rate: 16 Pulse Oximetry: 96% 927 - report given to AMAN Templeton. /cydney/ MADYSON CHAMBERS RN REGISTERED NURSE Signed: 04/16/2024 09:29 04/16/2024 ADDENDUM STATUS: COMPLETED 357 - the following med given per order from Dr. Walton: HYDROMORPHONE INJ,SOLN 1MG/0.5ML IVP ONE-TIME STAT (FOR E.R. ADMINISTRATION ONLY) Indication: FOR SEVERE PAIN pt tolerated well with no adverse effects. med counted and pulled with AMAN Mar. /cydney/ MADYSON CHAMBERS RN REGISTERED NURSE Signed: 04/16/2024 04:00 Receipt Acknowledged By: * AWAITING SIGNATURE * RICHIE CELIS 04/16/2024 ADDENDUM STATUS: COMPLETED 527 - the following meds given per order from Dr. Walton: HYDROMORPHONE INJ,SOLN 0.5MG/0.25ML IVP ONE-TIME STAT (FOR E.R. ADMINISTRATION ONLY) Indication: FOR SEVERE PAIN pt tolerated well with no adverse effects. med counted, pulled, and wasted with AMAN Mar. /da CHAMBERS RN REGISTERED NURSE Signed: 04/16/2024 05:30 Receipt Acknowledged By: * AWAITING SIGNATURE * RICHIE CELIS 04/16/2024 ADDENDUM STATUS: COMPLETED 657 - the following med given per order from Dr. Walton: HYDROMORPHONE INJ,SOLN 1MG/0.5ML IVP ONE-TIME STAT (FOR E.R. ADMINISTRATION ONLY) Indication: FOR SEVERE PAIN pt tolerated well with no adverse effects. med counted, pulled and wasted with AMAN Mar. /cydney/ MADYSON CHAMBERS RN REGISTERED NURSE Signed: 04/16/2024 07:19 Receipt Acknowledged By: * AWAITING SIGNATURE * RICHIE CELIS 04/16/2024 ADDENDUM STATUS: COMPLETED 0939: rounded on pt, appears to be sleeping in no observable distress respirations even and unlabored, call light in reach 1125: rounded on pt, awake and alert, confirmed pt aware of plan to admit, per pt surgery will be 04/18 denied any needs encouraged to call if needed given call light /cydney/ REYES VALLADARES, RN REGISTERED NURSE Signed: 04/16/2024 12:03 04/16/2024 ADDENDUM STATUS: COMPLETED 1440: attempted to call report to 7S 1455: safety check on pt, appears to be sleeping in no observable distress respirations even and unlabored 1515 report to assigned 7S RN rounded on pt, related mild pain, declined offer of pain medications pt to 7S in WC, ambulatory to WC with steady gait in no observable distress, no change in assessment /cydney/ REYES VALLADARES, RN REGISTERED NURSE Signed: 04/16/2024 15:29 PATEL RICKS [facility]
--- OUTSIDE RECORDS SUMMARY | 2025-01-15 07:40 | XMS_ITS | Clinical Summary ---
Author Organization [facility] [id number] [facility] Address [address] [place] [address] Care Team Providers Care Control Officer Manager Name Role Phone Unavailable Primary Care Provider Unavailabl e Active Problems Problem Noted Date Diagnosed Date Obstructive sleep apnea Social History Tobacco Use Types Packs/Day Years Used Date Smoking Tobacco: Never Assessed Sex and Gender Information Value Date Recorded Sex Assigned at Not on file Legal Sex Male 12:12 PM CDT Gender Identity Not on file Sexual Orientation Not on file Plan of Treatment Health Maintenance Due Date Last Done Comments DTAP/TDAP/TD VACCINES (7 - Td or Tdap) 04/30/2022 04/30/2012, 12/05/1995, 06/27/1992, Additional history exists INFLUENZA VACCINE (#1) 2024 , 11/26/2020, 08/04/2019, Additional history exists HEPATITIS B VACCINES Completed 04/09/2013, 04/09/2013, 12/11/2012, Additional history exists HPV VACCINES Aged Out No longer eligi ble based on patient's age to complete this topic Insurance [employer]
--- OUTSIDE RECORDS SUMMARY | 2025-01-15 07:40 | XMS_ITS | Continuity of Care Document ---
Author Name [facility] Organization [facility] Care Team Providers Care Data Services Developer Name Role Phone [facility] Unavailable Unavailable Problems Combined list of problems from Department of Defense and Veterans Affairs facilities. It does not include entries that were removed or entered in error. Problem Status Onset Date Problem Type Date of Resolution Comments Source Encounter for pre-employment examination Active 11/18/19 25 Diagnosis 0055C-375t h [facility] Back pain Active Condition 0055C-375t h [facility] Depression Active Condition 0055C-375t h [facility] Migraine Active Condition 0055C-375t h [facility] Obstructive sleep apnea Active Condition 0055C-375t h [facility] FATTY LIVER - NONALCOHOLIC Active Condition DoD CONSTIPATION Inactive Condition DoD DYSPEPSIA Active Condition DoD joint pain, localized in the wrist Active Condition DoD Patient Education Active Condition DoD Anticipatory Guidance: Unsafe Sexual Practices Inactive Condition DoD Inquiry And Counseling: Contraceptive Practices Active Condition DoD Patient Education Dietary Changing Eating Habits Active Condition DoD 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 To RTC if no improvement by then. Also to continue palliative treatment of viral uri and to report to clinic if continues to have eye discharge. DoD ALLERGIC RHINITIS Active Condition Wi ll treat with zyrtec and flonase and follow up closely prn. FOP present and agrees with plan. DoD OTITIS MEDIA RIGHT EAR Inactive Condition DoD Allergic rhinitis Active Condition [facility] Allergic Rhinitis ([facility] [id number]) Active Condition [facility] Anxiety Active Condition [facility] Anxiety ([facility] [id number]) Active Condition [facility] Cholecystitis Active Condition [facility] Chronic pain syndrome Active Condition [facility] Depression ([facility] [id number]) Active Condition [facility] Depressive disorder Active Condition [facility] Disturbance of attention Active Condition [facility] Exposure to potentially hazardous substance ([facility] [id number]) Active Condition Dec 27 4 Entered By: SIERRA DAMIAN Comment: Entered automatically through ИРИНА Problem List documentation program [facility] [place] Gastroesophageal reflux disease Active Condition [facility] Headache Active Condition [facility] Headache ([facility] [id number]) Active Condition [facility] Hiatal hernia Active Condition [facility] Hiatus hernia Active Condition [facility] History of traumatic brain injury Active Condition [facility] History of traumatic brain injury Active Condition May 14, 2023 Entered By: HANDY MALLORY Comment: aprox 2014 [facility] HL - Hearing loss Active Condition [place] 2022 Entered By: HANDY MALLORY Comment: more to the left side [facility] Left knee pain Active Condition [facility] Low back pain Active Condition [facility] Nocturia Active Condition [facility] Obstructive Sleep Apnea of Adult ([facility] [id number]) Active Condition [facility] Pain of left shoulder joint Active Condition [facility] Pes planus Active Condition [facility] Sleep disorder Active Condition [facility] Tinnitus Active Condition [facility] Tinnitus of left ear Active Condition [facility] Vitamin D deficiency Active Condition [facility] Diagnosis: ICD-10-CM Z01.20 Encounter for dental exam and cleaning w/o abnormal findings Active Diagnosis [facility] Diagnosis: ICD-10-CM S32.020S Wedge compression fracture of second lum vertebra, sequela Active Diagnosis [facility] Diagnosis: ICD-10-CM R10.10 Upper abdominal pain, unspecified Active Diagnosis [facility] Diagnosis: ICD-10-CM Z09 Encntr for f/u exam aft trtmt for cond oth than malig neoplm Active Diagnosis [facility] Diagnosis: ICD-10-CM R42 Dizziness and giddiness Active Diagnosis [facility] Diagnosis: ICD-10-CM K59.00 Constipation, unspecified Active Diagnosis [facility] Diagnosis: ICD-10-CM Z71.1 Person w feared th complaint in whom no diagnosis is made Active Diagnosis [facility] Diagnosis: ICD-10-CM Z02.89 Encounter for other administrative examinations Active Diagnosis [facility] Diagnosis: ICD-10-CM E55.9 Vitamin D deficiency, unspecified Active Diagnosis [facility] Diagnosis: ICD-10-CM F41.9 Anxiety disorder, unspecified Active Diagnosis [facility] Diagnosis: ICD-10-CM M51.36 Other intervertebral disc degeneration, lumbar region Active Diagnosis [facility] Diagnosis: ICD-10-CM Z02.9 Encounter for administrative examinations, unspecified Active Diagnosis [facility] Diagnosis: ICD-10-CM F33.1 Major depressive disorder, recurrent, moderate Active Diagnosis [facility] Diagnosis: ICD-10-CM K81.2 Acute cholecystitis with chronic cholecystitis Active Diagnosis [facility] Diagnosis: ICD-10-CM S32.030A Wedge compression fracture of third lumbar vertebra, init Active Diagnosis [facility] Diagnosis: ICD-10-CM K81.0 Acute cholecystitis Active Diagnosis [facility] Diagnosis: ICD-10-CM Z01.818 Encounter for other preprocedural examination Active Diagnosis [facility] Admit Reason: INTRACTABLE BILARY COLIC Active Diagnosis [facility] Diagnosis: ICD-10-CM Z71.81 Spiritual or oriental orthodox counseling Active Diagnosis [facility] Diagnosis: ICD-10-CM Z79.899 Other custodial (current) drug therapy Active Diagnosis [facility] Diagnosis: ICD-10-CM M54.51 Vertebrogenic low back pain Active Diagnosis [facility] Diagnosis: ICD-10-CM M54.50 Low back pain, unspecified Active Diagnosis [facility] Diagnosis: ICD-10-CM S32.000A Wedge compression fracture of unsp lumbar vertebra, init Active Diagnosis [facility] Diagnosis: ICD-10-CM K80.20 Calculus of gallbladder w/o cholecystitis w/o obstruction Active Diagnosis [facility] Diagnosis: ICD-10-CM Z23 Encounter for immunization Active Diagnosis [facility] Diagnosis: ICD-10-CM R07.9 Chest pain, unspecified Active Diagnosis [facility] Diagnosis: ICD-10-CM I20.9 Angina pectoris, unspecified Active Diagnosis [facility] Diagnosis: ICD-10-CM Z13.31 Encounter for screening for depression Active Diagnosis [facility] Diagnosis: ICD-10-CM K80.80 Other cholelithiasis without obstruction Active Diagnosis [facility] Diagnosis: ICD-10-CM K21.00 Gastro-esophageal reflux dis with esophagitis, without bleed Active Diagnosis [facility] Diagnosis: ICD-10-CM K80.81 Other cholelithiasis with obstruction Active Diagnosis [facility] Diagnosis: ICD-10-CM R10.9 Unspecified abdominal pain Active Diagnosis [facility] Diagnosis: ICD-10-CM F41.1 Generalized anxiety disorder Active Diagnosis [facility] Diagnosis: ICD-10-CM M54.2 Cervicalgia Active Diagnosis [facility] [place] Diagnosis: ICD-10-CM Z11.59 Encounter for screening for other viral diseases Active Diagnosis [facility] Diagnosis: ICD-10-CM K80.70 Calculus of GB and bile duct w/o cholecyst w/o obstruction Active Diagnosis [facility] Diagnosis: ICD-10-CM H52.13 Myopia, bilateral Active Diagnosis [facility] Diagnosis: ICD-10-CM R11.2 Nausea with vomiting, unspecified Active Diagnosis [facility] Medications Combined list of outpatient medications from Department of Defense and Veterans Affairs facilities.Medications provided include 1) outpatient medications from the last 15 months, and 2) patient-reported medications. Medication Details Route Status Patient Instructions Prescription Expires Prescription Number Last Dispense Date Ordering Provider Order Date Order Qty Source ACETAMINOPH EN 325MG TAB TAKE ONE TABLET BY MOUTH THREE TIMES A DAY FOR PAIN ORAL 05/14/2024 [id number] 4 KAYLI URIOSTEGUI 2022 300 [facility] BUPROPION HCL 150MG 24HR TAB,SA TAKE ONE TABLET BY MOUTH EVERY MORNING FOR DEPRESSI ON SWALLOW WHOLE - DO NOT CRUSH OR CHEW. ORAL 04/22/2024 [id number] 4 CHARLA CISSE 2023 90 [facility] CHLORHEXIDI NE GLUCONATE 4% LIQUID,TOP APPLY MODERATE AMOUNT TO AFFECTED AREA(S) DIRECTED FOR SKIN DISINFEC TION (TOPICAL USE ONLY) AVOID CONTACT WITH EYES. WASH BODY WITH SOAP IN THE SHOWER FROM NECK DOWN (NOT ON FACE OR PRIVATES ) THE NIGHT BEFORE SURGERY AND THE MORNING OF SURGERY. (TOPICAL USE ONLY) AVOID CONTACT WITH EYES. WASH BODY WITH SOAP IN THE SHOWER FROM NECK DOWN (NOT ON FACE OR PRIVATES ) THE NIGHT BEFORE SURGERY AND THE MORNING OF SURGERY. TOPICA L 03/08/2024 [id number] MORTON 2023 120 [facility] CHOLECALCIF BERNICE 50MCG (2,000UNIT) TAB TAKE ONE TABLET BY MOUTH ONE TIME EACH DAY FOR VITAMIN D DEFICIEN CY ORAL 05/14/2024 [id number] 4 KAYLI URIOSTEGUI 2022 100 [facility] DICLOFENAC NA 1% GEL,TOP APPLY 4 GRAMS TOPICALL Y THREE TIMES A DAY FOR PAIN AND INFLAMMA TION TO AFFECTED JOINT (2 GRAMS TO BACK AND 4 GRAMS TO KNEE(S)) (MEASURE DOSE USING SUPPLIED DOSING CARD) TOPICA L 05/14/2024 [id number] 4 KATIANAKAYLI ESTEBAN 2022 200 [facility] DICYCLOMINE HCL 20MG TAB TAKE ONE TABLET BY MOUTH THREE TIMES A DAY FOR IRRITABL E COLON ORAL 05/14/2024 [id number] 4 KAYLI URIOSTEGUI 2022 270 [facility] DOCUSATE NA 100MG CAP TAKE TWO CAPSULES BY MOUTH TWICE DAILY NEEDED FOR SOFTENIN G STOOL HOLD FOR LOOSE STOOL/DI ARRHEA. ORAL 04/24/2024 [id number] 4 TIANA PATTEN 2023 40 [facility] FAMOTIDINE 20MG TAB TAKE ONE TABLET BY MOUTH TWICE A DAY FOR [place] N ORAL 05/14/2024 [id number] 4 KATIANAKAYLI ESTEBAN 2022 180 [facility] FLUARIX QUAD 6518-4579 (influenza virus vaccine quadrival 1040-1616(6 mos and up)/PF), 60MCG/.5ML, FLUARIX QUAD 2019- 1 (influen za virus vaccine quadriva l 2019-(6 mos and up)/PF), 60MCG/.5 ML, Start Date: 11/27/20 Status: Ordered Repeat number: 1 Ordered 2021 No Facilit y Access FLUTICASONE PROPIONATE 50MCG/SPRAY SOLN,NASAL, 16GM USE 1 SPRAY EACH NOSTRIL ONE TIME EACH DAY FOR CONGESTI ON NASAL 05/14/2024 [id number] 4 KATIANAKAYLI ESTEBAN 2022 1 [facility] FOLIC ACID 1MG TAB TAKE ONE TABLET BY MOUTH ONE TIME EACH DAY FOR ANEMIA FROM INADEQUA TE FOLIC ACID ORAL 05/14/2024 [id number] 4 KAYLI URIOSTEGUI 2022 90 [facility] HYDROCODONE 5MG/ACETAMI NOPHEN 325MG TAB TAKE 1 TABLET BY MOUTH EVERY 6 HOURS NEEDED FOR SEVERE PAIN CAUTION: DO NOT EXCEED 4000MG PER DAY ACETAMIN OPHEN (APAP) FROM ALL MEDS. ORAL 04/24/2024 [id number] 4 TIANA PATTEN 2023 24 [facility] N HYDROXYZINE HCL 10MG TAB TAKE ONE TABLET BY MOUTH THREE TIMES A DAY FOR ANXIETY ORAL 05/14/2024 [id number] 4 [facility] LZURAK[facility] JEVON 2022 270 [facility] IBUPROFEN 600MG TAB TAKE ONE TABLET BY MOUTH FOUR TIMES A DAY NEEDED FOR PAIN TAKE WITH FOOD. ORAL 04/24/2024 [id number] 4 TIANA PATTEN 2023 100 [facility] LIDOCAINE 5% PATCH APPLY 1 PATCH TO SKIN SITE ONCE A DAY APPLY PATCH AND PRESS FIRMLY FOR 10-15 SECONDS. KEEP ON FOR 12 HOURS THEN REMOVE PATCH FOR 12 HOURS. TRANSD ERMAL ACTIVE 08/08/2025 [id number] 4 CADY TIAN 2023 90 [facility] MAGNESIUM OXIDE 420MG TAB TAKE ONE TABLET BY MOUTH ONE TIME EACH DAY FOR MAGNESIU M SUPPLEME NTATION ORAL 05/14/2024 [id number] 4 [facility] LUZDHAVALE JEVON 2022 100 [facility] MELOXICAM 15MG TAB TAKE ONE TABLET BY MOUTH ONE TIME EACH DAY FOR PAIN AND INFLAMMA TION (TAKE WITH FOOD) ORAL 01/03/2024 [id number] ,L MARINO E 2023 15 [place] [place] [facility] MELOXICAM 7.5MG TAB TAKE ONE TABLET BY MOUTH ONCE A DAY FOR PAIN ORAL ACTIVE 12/25/2025 [id number] LEROY OSBORNE 2024 30 [facility] METHOCARBAM OL 500MG TAB TAKE THREE TABLETS BY MOUTH EVERY 6 HOURS FOR 2 DAYS, THEN TAKE TWO TABLETS EVERY 6 HOURS NEEDED FOR 12 DAYS FOR MUSCLE SPASMS/M USCLE RELAXATI ON (TAKE WITH FOOD) ORAL 01/03/2024 [id number] Doug KENNY ES E 2023 120 [facility] [place] [facility] METHOCARBAM OL 750MG TAB TAKE 1 TABLET BY MOUTH FOUR TIMES A DAY NEEDED FOR MUSCLE SPASM ORAL 04/24/2024 [id number] TIANA PATTEN 2023 30 [facility] NALOXONE HCL 4MG/SPRAY SOLN,SPRAY, NASAL USE 1 SPRAY (4MG) INTO ONE NOSTRIL ONLY ONE-TIME FOR OPIOID OVERDOSE DO NOT PRIME NASAL SPRAY. SPRAY ONE DOSE IN ONE NOSTRIL, GIVE ADDITION AL DOSE IF PATIENT DOES NOT START BREATHIN G WITHIN 2-3 MINUTES OR STOPS BREATHIN G AGAIN. CALL 911. IF USED, NOTIFY PROVIDER . NASAL 04/24/2024 [id number] 4 PATTENTIANA 2023 2 [facility] OMEPRAZOLE 40MG CAP,EC TAKE ONE CAPSULE BY MOUTH EVERY MORNING BEFORE A MEAL FOR ACID REFLUX. TAKE 30 MINUTES PRIOR TO FOOD. ORAL 05/04/2024 [id number] 4 JONATHON CHA E 2023 90 [facility] ONDANSETRON HCL 4MG TAB,ORALLY DISINTEGRAT ING TAKE ONE TABLET UNDER THE TONGUE EVERY EIGHT(8) HOURS NEEDED FOR NAUSEA/V OMITING SUBLIN GUAL 03/14/2024 [id number] 4 ARSENIO [place] ISTA M 2022 60 [facility] OXYCODONE HCL 5MG TAB TAKE ONE TABLET BY MOUTH EVERY 6 HOURS NEEDED FOR POST-OPE RATIVE PAIN MAY CAUSE CONSTIPA TION ORAL 05/18/2024 [id number] THOMAS LUIS 2023 15 [facility] predniSONE 20 mg oral tablet predniSO NE 20 mg oral tablet Start Date: 07/09/21 Status: Ordered Repeat number: 1 Ordered 2021 No Facilit y Access PREDNISONE 20MG TAB TAKE ONE TABLET BY MOUTH ONE TIME EACH DAY FOR INFLAMMA TION (TAKE WITH FOOD) ORAL 01/03/2024 [id number] ,L ES E 2023 6 [place] [facility] SODIUM FLUORIDE 1.1% TOOTHPASTE USE DIRECTED BY MOUTH TWICE A DAY FOR DENTAL CARIES TOOTHPAS TE (DO NOT SWALLOW) .APPLY A PEA-SIZE D AMOUNT OF THE PASTE TO A TOOTHBRU SH AND BRUSH THOROUGH LY FOR TWO MINUTES, AT MORNING AND AT NIGHT; SPIT, DO NOT RINSE. DO NOT EAT, DRINK, OR RINSE FOR 30 MINUTES AFTER USE. ORAL ACTIVE 01/09/2026 [id number] 5 LISA HERNANDEZ 2024 51 [facility] VANESSA Orosco SUMATRIPTAN SUCCINATE 50MG TAB TAKE ONE TABLET BY MOUTH ONE TIME NEEDED AT ONSET OF MIGRAINE . MAY REPEAT DOSE AFTER 2 HOURS IF NEEDED; DO NOT EXCEED 200 MG IN 24 HOURS. ORAL 05/14/2024 [id number] 4 KAYLI URIOSTEGUI 2022 18 [facility] triamcinolo ne 0.1% topical cream triamcin olone 0.1% topical cream Start Date: 07/09/21 Status: Ordered Repeat number: 1 Ordered 2021 No Facilit y Access Allergies, Adverse Reactions, Alerts Combined list of allergies from Department of Defense and Veterans Affairs facilities. It does not include entries that were removed or entered in error. Substance Category Reaction Severity Reaction type Status Date Reported Comments Source COMPAZINE Propensity to adverse reactions to drug (finding) Anxiety SEVERE active 5 [facility] COMPAZINE INJECTION Propensity to adverse reactions to drug (finding) Hyperactive behavior MODERATE active 3 [facility] [place] NO OUTPUT FOR NCID [id number] Drug allergy (disorder) active 8 [facility] Immunizations Combined list of available immunizations from the Department of Defense and Veterans Affairs facilities. Immunization Series Date Given Administered By Site Reaction Lot Number CVX Code Drug Weatherization And Housing Inspector Status Comments Source TDAP 2023 VAHID MENDIOLA A LEFT DELTO ID [id number] 115 complet ed Booster for Series, ADMINISTE RED AT NE, [facility] INFLUENZA, UNSPECIFIED FORMULATION 2022 88 complet ed HISTORICA L INFORMATI ON - FROM OTHER PROVIDER, NUrmila HENRIQUEZ /SUrmila [facility] INFLUENZA, UNSPECIFIED FORMULATION 2022 88 complet ed HISTORICA L INFORMATI ON - FROM PATIENT'S RECALL, [facility] influenza, injectable, quadrivalent- pf 2020 [id number] 150 [employer] complet ed influenza , injectabl e, quadrival ent-pf 06/21/21 Given Ambulat ory Pharmac y INFLUENZA, INJECTABLE, QUADRIVALENT, PRESERVATIVE FREE 2020 150 complet ed [facility] Influenza, injectable, quadrivalent, preservative free 0 2020 [id number] 150 [employer] (SEQ) complet ed Influenza , injectabl e, quadrival ent, preservat kayli free DoD influenza, injectable, quadrivalent- pf 2020 TRS 150 [employer] ne complet ed influenza , injectabl e, quadrival ent-pf 11/26/20 Given Ambulat ory Pharmac y influenza, injectable, quadrivalent, preservative free 2020 [id number], () Not Given influenza , injectabl e, quadrival ent, preservat kayli free DoD Influenza, injectable, quadrivalent, preservative free 0 2020 Unknown, Provider TRS 150 [employer] (SKB) complet ed Influenza , injectabl e, quadrival ent, preservat kayli free DoD INFLUENZA, INJECTABLE, QUADRIVALENT, PRESERVATIVE FREE 2018 150 complet ed [facility] HEP A, ADULT 2018 52 complet ed [facility] measles and rubella virus vaccine 0 2018 04 () Not Given measles and rubella virus vaccine DoD influenza, injectable, quadrivalent- pf 2017 [id number] 150 Unknown complet ed influenza , injectabl e, quadrival ent-pf 07/06/18 Given Ambulat ory Pharmac y Influenza, injectable, quadrivalent, preservative free 0 2017 [id number] 150 Unknown (UNK) comple t ed Influenza , injectabl e, quadrival ent, preservat kayli free DoD MMR 2016 03 complet ed [facility] 2016 121 complet ed [facility] influenza, injectable, quadrivalent 2016 [id number] 158 GlaxoSmithKl ne complet ed influenza , injectabl e, quadrival ent 06/09/17 Given Ambulat ory Pharmac y influenza, injectable, quadrivalent, contains preservative 0 2016 [id number] 158 [facility] complet ed influenza , injectabl e, quadrival ent, contains preservat kayli DoD influenza, injectable, quadrivalent- pf 2015 [id number] 150 [employer] complet ed influenza , injectabl e, quadrival ent-pf 07/28/16 Given Ambulat ory Pharmac y Influenza, injectable, quadrivalent, preservative free 0 2015 [id number] 150 [employer] (SEQ) comple t ed Influenza , injectabl e, quadrival ent, preservat kayli free DoD anthrax vaccine 2015 UNK 24 Unknown complet ed anthrax vaccine 10/12/15 Given Ambulat ory Pharmac y anthrax vaccine 2 2015 UNK 24 Unknown (UNK) comple t ed anthrax vaccine DoD influenza, seasonal, injectable 2014 [id number] 1A 141 [employer] complet ed influenza , seasonal, injectabl e 06/14/15 Given Ambulat ory Pharmac y Influenza, seasonal, injectable 0 2014 [id number] 1A 141 [employer] ([facility]) complet ed Influenza , seasonal, injectabl e DoD typhoid vaccine, parenteral 2013 UNK 41 Unknown complet ed typhoid vaccine, parentera l 09/06/14 Given Ambulat ory Pharmac y typhoid vaccine, parenteral, other than acetone-kille d, dried 1 2013 UNK 41 Unknown (UNK) comple t ed typhoid vaccine, parentera l, other than acetone-k illed, dried DoD influenza, injectable, quadrivalent 2013 [id number] 158 Unknown complet ed influenza , injectabl e, quadrival ent 07/22/14 Given Ambulat ory Pharmac y influenza, injectable, quadrivalent, contains preservative 0 2013 [id number] 158 Other (OTH) complet ed influenza , injectabl e, quadrival ent, contains preservat kayli DoD influenza, seasonal, injectable 2012 UNK 141 Unknown complet ed influenza , seasonal, injectabl e 06/17/13 Given Ambulat ory Pharmac y Influenza, seasonal, injectable 0 2012 UNK 141 Unknown (UNK) comple t ed Influenza , seasonal, injectabl e DoD hepatitis A-hepatitis B vaccine 2012 UNK 104 Unknown complet ed hepatitis A-hepatit is B vaccine 04/09/13 Given Ambulat ory Pharmac y hepatitis A adult vaccine 2012 UNK 52 Unknown complet ed hepatitis A adult vaccine 04/09/13 Given Ambulat ory Pharmac y hepatitis B adult vaccine 2012 UNK 43 Unknown complet ed hepatitis B adult vaccine 04/09/13 Given Ambulat ory Pharmac y hepatitis B vaccine, adult dosage 3 2012 UNK 43 Unknown (UNK) comple t ed hepatitis B vaccine, adult dosage DoD hepatitis A vaccine, adult dosage 2 2012 UNK 52 Unknown (UNK) comple t ed hepatitis A vaccine, adult dosage DoD hepatitis A and hepatitis B vaccine 3 2012 UNK 104 Unknown (UNK) comple t ed hepatitis A and hepatitis B vaccine DoD HEP A, ADULT 2012 52 complet ed DoD [employer] BAT (SPEC OP) HEP B, ADULT 2012 43 complet ed DoD [employer] SPP[employer] BAT (SPEC OP) HEP A, ADULT 2012 52 complet ed DoD [employer] S[employer] BAT (SPEC OP) HEP B, ADULT 2012 43 complet ed DoD [employer] S[employer] BAT (SPEC OP) vaccinia (smallpox) vaccine 2012 UNK 75 Unknown complet ed vaccinia (smallpox ) vaccine 12/02/12 Given Ambulat ory Pharmac y typhoid vaccine, parenteral 2012 UNK 41 Unknown complet ed typhoid vaccine, parentera l 12/02/12 Given Ambulat ory Pharmac y yellow fever vaccine 2012 UNK 37 Unknown complet ed yellow fever vaccine 12/02/12 Given Ambulat ory Pharmac y anthrax vaccine 2012 UNK 24 Unknown complet ed anthrax vaccine 12/02/12 Given Ambulat ory Pharmac y anthrax vaccine 1 2012 UNK 24 Unknown (UNK) comple t ed anthrax vaccine DoD yellow fever vaccine 0 2012 UNK 37 Unknown (UNK) comple t ed yellow fever vaccine DoD typhoid vaccine, parenteral, other than acetone-kille d, dried 1 2012 UNK 41 Unknown (UNK) comple t ed typhoid vaccine, parentera l, other than acetone-k illed, dried DoD vaccinia (smallpox) vaccine 0 2012 UNK 75 Unknown (UNK) comple t ed vaccinia (smallpox ) vaccine DoD influenza virus vaccine, live 2011 [id number] 111 [employer] comple t ed influenza virus vaccine, live 06/03/12 Given Ambulat ory Pharmac y hepatitis A-hepatitis B vaccine 2011 [id number] 104 GlaxoSmithK[employer] ne complet ed hepatitis A-hepatit is B vaccine 06/03/12 Given Ambulat ory Pharmac y influenza, seasonal, injectable 2011 UNKNOWN 141 Unknown complet ed influenza , seasonal, injectabl e 06/03/12 Given Ambulat ory Pharmac y poliovirus vaccine, inactivated 2011 [id number] 10 sanofi pasteur complet ed polioviru s vaccine, inactivat ed 06/03/12 Given Ambulat ory Pharmac y poliovirus vaccine, inactivated 0 2011 [id number] 10 Sanofi Pasteur (PMC) complet ed polioviru s vaccine, inactivat ed DoD hepatitis A and hepatitis B vaccine 2 2011 [id number] 104 [facility] (SKB) complet ed hepatitis A and hepatitis B vaccine DoD influenza virus vaccine, live, attenuated, for intranasal use 0 2011 [id number] [employer] (MED) complet ed influenza virus vaccine, live, attenuate d, for intranasa l use DoD Influenza, seasonal, injectable 0 2011 UNKNOWN 141 Unknown (UNK) comple t ed Influenza , seasonal, injectabl e DoD HEP A, ADULT 2011 52 complet ed [facility] measles and rubella virus vaccine 0 2011 04 () Not Given measles and rubella virus vaccine DoD varicella virus vaccine 0 2011 21 () Not Given varicella virus vaccine DoD adenovirus vaccine, live 2011 [id number] 9 143 Unknown complet ed adenoviru s vaccine, live 04/30/12 Given Ambulat ory Pharmac y tetanus, diphtheria, acellular pertu is 2011 [id number] 115 [facility] ne complet ed tetanus, diphtheri a, acellular pertussis 04/30/12 Given Ambulat ory Pharmac y tetanus-dipht h toxoids (Td) adult/adol 2011 UNKNOWN 09 Unknown complet ed tetanus-d iphth toxoids (Td) adult/ado l 04/30/12 Given Ambulat ory Pharmac y meningococcal A,C,Y,W-135 (MCV4P) 2011 [id number] sanofi pasteur complet ed meningoco ccal A,C,Y,W-1 35 (MCV4P) 04/30/12 Given Ambulat ory Pharmac y hepatitis A-hepatitis B vaccine 2011 [id number] 1AA [facility] hepatitis A-hepatit is B vaccine 04/30/12 Given Ambulat ory Pharmac y meningococcal polysaccharid e (MPSV4) 2011 UNKNOWN 32 Unknown complet ed meningoco ccal polysacch aride (MPSV4) 04/30/12 Given Ambulat ory Pharmac y tetanus and diphtheria toxoids, adsorbed, preservative free, for adult use (2 Lf of tetanus toxoid and 2 Lf of diphtheria toxoid) 1 2011 UNKNOWN 09 Unknown (UNK) comple t ed tetanus and diphtheri a toxoids, adsorbed, preservat kayli free, for adult use (2 Lf of tetanus toxoid and 2 Lf of diphtheri a toxoid) DoD meningococcal polysaccharid e vaccine (MPSV4) 1 2011 UNKNOWN 32 Unknown (UNK) comple t ed meningoco ccal polysacch aride vaccine (MPSV4) DoD hepatitis A and hepatitis B vaccine 1 2011 [id number] 1AA 104 [email or web address] (SKB) complet ed hepatitis A and hepatitis B vaccine DoD meningococcal polysaccharid e (groups A, C, Y and W-135) diphtheria toxoid conjugate vaccine (MCV4P) 0 2011 [id number] 114 Sanofi Pasteur (PMC) complet ed meningoco ccal polysacch aride (groups A, C, Y and W-135) diphtheri a toxoid conjugate vaccine (MCV4P) DoD tetanus toxoid, reduced diphtheria toxoid, and acellular pertu is vaccine, adsorbed 0 2011 [id number] 7BC 115 [employer] (SKB) complet ed tetanus toxoid, reduced diphtheri a toxoid, and acellular pertussis vaccine, adsorbed DoD Adenovirus, type 4 and type 7, live, oral 0 2011 [id number] 9 143 Unknown (UNK) complet ed Adenoviru s, type 4 and type 7, live, oral DoD TDAP 2011 115 complet ed DoD 528th SPPT BAT (SPEC OP) varicella virus vaccine 2003 [id number] 21 [employer] complet ed varicella virus vaccine 06/22/04 Given Ambulat ory Pharmac y varicella virus vaccine 2 2003 [id number] 21 Merck (MSD) complet ed varicella virus vaccine DoD hepatitis B pediatric/ado lescent 2003 [id number] A6 08 [employer] complet ed hepatitis B pediatric /adolesce nt 11/26/03 Given Ambulat ory Pharmac y hepatitis B vaccine, pediatric or pediatric/ado lescent dosage 3 2003 [id number] A6 08 [employer] (SKB) complet ed hepatitis B vaccine, pediatric or pediatric /adolesce nt dosage DoD ZOSTER LIVE 2003 121 complet ed DoD 528th SPPT BAT (SPEC OP) varicella virus vaccine 2002 [id number] 21 [employer] Inc complet ed varicella virus vaccine 06/22/03 Given Ambulat ory Pharmac y hepatitis B pediatric/ado lescent 2002 [id number] A2 08 [employer] complet ed hepatitis B pediatric /adolesce nt 06/22/03 Given Ambulat ory Pharmac y hepatitis B vaccine, pediatric or pediatric/ado lescent dosage 2 2002 [id number] A2 08 [employer] (SKB) complet ed hepatitis B vaccine, pediatric or pediatric /adolesce nt dosage DoD varicella virus vaccine 1 2002 0346N 21 Merck (MSD) complet ed varicella virus vaccine DoD ZOSTER LIVE 2002 121 complet ed DoD 528th SPPT BAT (SPEC OP) tetanus-dipht h toxoids (Td) adult/adol 2002 [id number] 09 sanofi pasteur complet ed tetanus-d iphth toxoids (Td) adult/ado l 04/08/03 Given Ambulat ory Pharmac y hepatitis B pediatric/ado lescent 2002 [id number] A2 08 [employer] complet ed hepatitis B pediatric /adolesce nt 04/08/03 Given Ambulat ory Pharmac y hepatitis B vaccine, pediatric or pediatric/ado lescent dosage 1 2002 [id number] A2 08 [employer] (SKB) complet ed hepatitis B vaccine, pediatric or pediatric /adolesce nt dosage DoD tetanus and diphtheria toxoids, adsorbed, preservative free, for adult use (2 Lf of tetanus toxoid and 2 Lf of diphtheria toxoid) 1 2002 [id number] 09 Sanofi Pasteur (PMC) complet ed tetanus and diphtheri a toxoids, adsorbed, preservat kayli free, for adult use (2 Lf of tetanus toxoid and 2 Lf of diphtheri a toxoid) DoD measles/mumps /rubella virus vaccine 1995 TRANSCR IBED 03 Unknown complet ed measles/m umps/rube lla virus vaccine 08/18/96 Given Ambulat ory Pharmac y measles, mumps and rubella virus vaccine 2 1995 03 Other (OTH) complet ed measles, mumps and rubella virus vaccine DoD tuberculin purified protein derivative 1995 Transcr ibed 96 Unknown complet ed tuberculi n purified protein derivativ e 12/06/95 Given Ambulat ory Pharmac y measles/mumps /rubella virus vaccine 1995 TRANSCR IBED 03 Unknown complet ed measles/m umps/rube lla virus vaccine 12/06/95 Given Ambulat ory Pharmac y measles, mumps and rubella virus vaccine 1 1995 03 Other (OTH) complet ed measles, mumps and rubella virus vaccine DoD MMR 1995 03 complet ed [facility] 528th SPPT BAT (SPEC OP) poliovirus vaccine, inactivated 1995 TRANSCR IBED 10 Unknown complet ed polioviru s vaccine, inactivat ed 3/14/96 Given Ambulat ory Pharmac y DTaP 1995 TRANSCR IBED 20 Unknown complet ed DTaP 12/05/95 Given Ambulat ory Pharmac y poliovirus vaccine, inactivated 1 1995 10 Other (OTH) complet ed polioviru s vaccine, inactivat ed DoD diphtheria, tetanus toxoids and acellular pertu is vaccine 1 1995 20 Other (OTH) complet ed diphtheri a, tetanus toxoids and acellular pertussis vaccine DoD poliovirus vaccine, live, oral 1991 TRANSCR IBED 02 Unknown complet ed polioviru s vaccine, live, oral 06/27/92 Given Ambulat ory Pharmac y DTaP 1991 TRANSCR IBED 20 Unknown complet ed DTaP 06/27/92 Given Ambulat ory Pharmac y trivalent poliovirus vaccine, live, oral 4 1991 02 Other (OTH) complet ed trivalent polioviru s vaccine, live, oral DoD diphtheria, tetanus toxoids and acellular pertu is vaccine 2 1991 20 Other (OTH) complet ed diphtheri a, tetanus toxoids and acellular pertussis vaccine DoD Hib, unspecified formulation 1990 TRANSCR IBED 17 Unknown complet ed Hib, unspecifi ed formulati on 07/08/91 Given Ambulat ory Pharmac y poliovirus vaccine, live, oral 1990 TRANSCR IBED 02 Unknown complet ed polioviru s vaccine, live, oral 07/08/91 Given Ambulat ory Pharmac y diphtheria/te tanus toxoids/pertu is 1990 TRANSCR IBED 01 Unknown complet ed diphtheri a/tetanus toxoids/p ertussis 07/08/91 Given Ambulat ory Pharmac y diphtheria, tetanus toxoids and pertu is vaccine 3 1990 01 Other (OTH) complet ed diphtheri a, tetanus toxoids and pertussis vaccine DoD trivalent poliovirus vaccine, live, oral 3 1990 02 Other (OTH) complet ed trivalent polioviru s vaccine, live, oral DoD Haemophilus influenzae type b vaccine, conjugate unspecified formulation 1 1990 17 Other (OTH) complet ed Haemophil us influenza e type b vaccine, conjugate unspecifi ed formulati on DoD poliovirus vaccine, live, oral 1989 TRANSCR IBED 02 Unknown complet ed polioviru s vaccine, live, oral 89 Given Ambulat ory Pharmac y diphtheria/te tanus toxoids/pertu is 1989 TRANSCR IBED 01 Unknown complet ed diphtheri a/tetanus toxoids/p ertussis 89 Given Ambulat ory Pharmac y diphtheria, tetanus toxoids and pertu is vaccine 2 1989 01 Other (OTH) complet ed diphtheri a, tetanus toxoids and pertussis vaccine DoD trivalent poliovirus vaccine, live, oral 2 1989 02 Other (OTH) complet ed trivalent polioviru s vaccine, live, oral DoD poliovirus vaccine, live, oral 1988 TRANSCR IBED 02 Unknown complet ed polioviru s vaccine, live, oral 89 Given Ambulat ory Pharmac y diphtheria/te tanus toxoids/pertu is 1988 TRANSCR IBED 01 Unknown complet ed diphtheri a/tetanus toxoids/p ertussis 89 Given Ambulat ory Pharmac y diphtheria, tetanus toxoids and pertu is vaccine 1 1988 01 Other (OTH) complet ed diphtheri a, tetanus toxoids and pertussis vaccine DoD trivalent poliovirus vaccine, live, oral 1 1988 02 Other (OTH) complet ed trivalent polioviru s vaccine, live, oral DoD Results Combined list of recent chemistry, hematology and other laboratory results from [facility] [employer] and [facility], ranging from 15 months to all on record, depending upon the facility. Order Name Results Value Reference Range Date Interpretation Specimen Comments Source URINALYSI S W/ CX REFLEX (STL-PB) COLOR OF URINE Yellow 10/10 Specimen Type: URINE No comment entered. Ordering Provider: SAUL VELAZQUEZ Report Released Date/Time: Oct 10, 2024 05:46 AM Reporting Lab: [facility] [address] [facility] [address] [address] Performing Lab: [facility] [address] [facility] [address] [facility] URINALYSI S W/ CX REFLEX (STL-PB) BILIRUBIN.T OTAL [PRESENCE] IN URINE BY TEST STRIP Negativ emg/dL 10/10 Specimen Type: URINE No comment entered. Ordering Provider: SAUL VELAZQUEZ Report Released Date/Time: Oct 10, 2024 05:46 AM Reporting Lab: [address] [address] Performing Lab: [address] [address] [facility] URINALYSI S W/ CX REFLEX (STL-PB) PH OF URINE BY TEST STRIP 6.0 5.0 - 8.0 10/10 Specimen Type: URINE No comment entered. Ordering Provider: SAUL VELAZQUEZ Report Released Date/Time: Oct 10, 2024 05:46 AM Reporting Lab: [address] [address] Performing Lab: [address] [address] [facility] URINALYSI S W/ CX REFLEX (STL-PB) LEUKOCYTES [#/AREA] IN URINE SEDIMENT BY MICROSCOPY HIGH POWER FIELD <1/[HPF ] 0 - 5 10/10 Specimen Type: URINE No comment entered. Ordering Provider: SAUL VELAZQUEZ Report Released Date/Time: Oct 10, 2024 05:46 AM Reporting Lab: [address] [address] Performing Lab: [address] [address] [facility] URINALYSI S W/ CX REFLEX (STL-PB) ERYTHROCYTE S [#/VOLUME] IN URINE SEDIMENT BY MICROSCOPY HIGH POWER FIELD 1 /[HPF] 0 - 5 10/10 Specimen Type: URINE No comment entered. Ordering Provider: SAUL VELAZQUEZ Report Released Date/Time: Oct 10, 2024 05:46 AM Reporting Lab: [address] [address] Performing Lab: [address] [place] [address] [facility] URINALYSI S W/ CX REFLEX (STL-PB) APPEARANCE OF URINE Clear 10/10 Specimen Type: URINE No comment entered. Ordering Provider: SAUL VELAZQUEZ Report Released Date/Time: Oct 10, 2024 05:46 AM Reporting Lab: [address] [address] Performing Lab: [address] [address] [facility] URINALYSI S W/ CX REFLEX (STL-PB) NITRITE [PRESENCE] IN URINE BY TEST STRIP Negativ emg/dL 10/10 Specimen Type: URINE No comment entered. Ordering Provider: SAUL VELAZQUEZ Report Released Date/Time: Oct 10, 2024 05:46 AM Reporting Lab: [address] [address] Performing Lab: [address] [address] [facility] URINALYSI S W/ CX REFLEX (STL-PB) EPITHELIAL CELLS [#/AREA] IN URINE SEDIMENT BY MICROSCOPY LOW POWER FIELD 1 /[HPF] 0 - 5 10/10 Specimen Type: URINE No comment entered. Ordering Provider: SAUL VELAZQUEZ Report Released Date/Time: Oct 10, 2024 05:46 AM Reporting Lab: [address] [address] Performing Lab: [place] [address] [facility] [address] [address] [facility] URINALYSI S W/ CX REFLEX (STL-PB) MUCUS [PRESENCE] IN URINE SEDIMENT BY LIGHT MICROSCOPY OCC/[LP F] 10/10 Specimen Type: URINE No comment entered. Ordering Provider: SAUL VELAZQUEZ Report Released Date/Time: Oct 10, 2024 05:46 AM Reporting Lab: [place] [phone] Performing Lab: [facility] [address] [facility] [address] [facility] URINALYSI S W/ CX REFLEX (STL-PB) GLUCOSE [MASS/VOLUM E] IN URINE BY TEST STRIP Normalm g/dL 10/10 Specimen Type: URINE No comment entered. Ordering Provider: SAUL VELAZQUEZ Report Released Date/Time: Oct 10, 2024 05:46 AM Reporting Lab: [place] [address] [facility] [address] Performing Lab: [place] [address] [facility] [address] [address] [facility] URINALYSI S W/ CX REFLEX (STL-PB) PROTEIN [MASS/VOLUM E] IN URINE BY TEST STRIP 50 mg/dL 10/10 H Specimen Type: URINE No comment entered. Ordering Provider: SAUL VELAZQUEZ Report Released Date/Time: Oct 10, 2024 05:46 AM Reporting Lab: [place] [address] [facility] [address] Performing Lab: [place] [address] [facility] [id number] [place] [address] URINALYSI S W/ CX REFLEX (L-PB) URN.UROBILI NOGEN Normalm g/dL 10/10 Specimen Type: URINE No comment entered. Ordering Provider: SAUL VELAZQUEZ Report Released Date/Time: Oct 10, 2024 05:46 AM Reporting Lab: [place] [address] [facility] [address] Performing Lab: [place] [address] [facility] [address] [address] [facility] URINALYSI S W/ CX REFLEX (STL-PB) HEMOGLOBIN [MASS/VOLUM E] IN URINE BY TEST STRIP Negativ emg/dL 10/10 Specimen Type: URINE No comment entered. Ordering Provider: SAUL VELAZQUEZ Report Released Date/Time: Oct 10, 2024 05:46 AM Reporting Lab: [place] [phone] Performing Lab: [place] [phone] URINALYSI S W/ CX REFLEX (STL-PB) KETONES [MASS/VOLUM E] IN URINE BY TEST STRIP Negativ emg/dL 10/10 Specimen Type: URINE No comment entered. Ordering Provider: SAUL VELAZQUEZ Report Released Date/Time: Oct 10, 2024 05:46 AM Reporting Lab: [place] [address] Performing Lab: [address] URINALYSI S W/ CX REFLEX (STL-PB) URN.LEUK.ES T. Negativ emg/dL 10/10 Specimen Type: URINE No comment entered. Ordering Provider: SAUL VELAZQUEZ Report Released Date/Time: Oct 10, 2024 05:46 AM Reporting Lab: [place] [address] Performing Lab: [place] [phone] URINALYSI S W/ CX REFLEX (STL-PB) SPECIFIC GRAVITY OF URINE 1.033 10/10 H Specimen Type: URINE No comment entered. Ordering Provider: SAUL VELAZQUEZ Report Released Date/Time: Oct 10, 2024 05:46 AM Reporting Lab: [place] [address] Performing Lab: [address] LIPASE LIPASE [ENZYMATIC ACTIVITY/VO LUME] IN SERUM OR PLASMA 32 U/L 8 - 78 10/10 Specimen Type: PLASMA Comment: No hemolysis noted. Ordering Provider: SUAL VELAZQUEZ Report Released Date/Time: Oct 10, 2024 05:30 AM Reporting Lab: [facility] [address] [facility] [address] [address] Performing Lab: [facility] [address] [facility] [address] [address] [facility] COMPREHEN SIVE METABOLIC PANEL CREATININE [MASS/VOLUM E] IN SERUM OR PLASMA 1.24 mg/dL 0.7 - 1.3 10/10 Specimen Type: PLASMA Comment: No hemolysis noted. Ordering Provider: SAUL VELAZQUEZ Report Released Date/Time: Oct 10, 2024 05:30 AM Reporting Lab: [place] [address] [facility] [address] [address] Performing Lab: [place] [address] [facility] [address] [address] [facility] COMPREHEN SIVE METABOLIC PANEL UREA NITROGEN [MASS/VOLUM E] IN SERUM OR PLASMA 12.0 mg/dL 9.0 - 25.0 10/10 Specimen Type: PLASMA Comment: No hemolysis noted. Ordering Provider: SAUL VELAZQUEZ Report Released Date/Time: Oct 10, 2024 05:30 AM Reporting Lab: [facility] [address] [facility] [address] Performing Lab: [place] [address] [facility] [address] [address] [facility] COMPREHEN SIVE METABOLIC PANEL GLUCOSE [MASS/VOLUM E] IN SERUM OR PLASMA 89 mg/dL 72 - 99 10/10 Specimen Type: PLASMA Comment: No hemolysis noted. Ordering Provider: SAUL VELAZQUEZ Report Released Date/Time: Oct 10, 2024 05:30 AM Reporting Lab: [place] [address] [facility] [address] [address] Performing Lab: [facility] [address] [facility] [address] [address] [facility] COMPREHEN SIVE METABOLIC PANEL SODIUM [MOLES/VOLU ME] IN SERUM OR PLASMA 143 meq/L 136 - 145 10/10 Specimen Type: PLASMA Comment: No hemolysis noted. Ordering Provider: SAUL VELAZQUEZ Report Released Date/Time: Oct 10, 2024 05:30 AM Reporting Lab: [facility] [address] [facility] [address] [address] Performing Lab: [facility] [address] [facility] [address] [address] [facility] COMPREHEN SIVE METABOLIC PANEL POTASSIUM [MOLES/VOLU ME] IN SERUM OR PLASMA 3.5 meq/L 3.5 - 5 10/10 Specimen Type: PLASMA Comment: No hemolysis noted. Ordering Provider: SAUL VELAZQUEZ Report Released Date/Time: Oct 10, 2024 05:30 AM Reporting Lab: [facility] [address] [facility] [address] Performing Lab: [facility] [address] [place] [address] [facility] COMPREHEN SIVE METABOLIC PANEL CHLORIDE [MOLES/VOLU ME] IN SERUM OR PLASMA 105 meq/L 98 - 107 10/10 Specimen Type: PLASMA Comment: No hemolysis noted. Ordering Provider: SAUL VELAZQUEZ Report Released Date/Time: Oct 10, 2024 05:30 AM Reporting Lab: [facility] [address] [facility] [address] Performing Lab: [facility] [address] [facility] [address] [address] [facility] COMPREHEN SIVE METABOLIC PANEL CARBON DIOXIDE, TOTAL [MOLES/VOLU ME] IN SERUM OR PLASMA 29 meq/L 22 - 31 10/10 Specimen Type: PLASMA Comment: No hemolysis noted. Ordering Provider: SAUL VELAZQUEZ Report Released Date/Time: Oct 10, 2024 05:30 AM Reporting Lab: [facility] [address] [facility] [address] Performing Lab: [facility] [address] [facility] [address] [facility] COMPREHEN SIVE METABOLIC PANEL CALCIUM [MASS/VOLUM E] IN SERUM OR PLASMA 9.0 mg/dL 8.4 - 10.4 10/10 Specimen Type: PLASMA Comment: No hemolysis noted. Ordering Provider: SAUL VELAZQUEZ Report Released Date/Time: Oct 10, 2024 05:30 AM Reporting Lab: [place] [address] [facility] [address] Performing Lab: [place] [address] [facility] [address] [facility] COMPREHEN SIVE METABOLIC PANEL PROTEIN [MASS/VOLUM E] IN SERUM OR PLASMA 7.0 g/dL 6 - 8.6 10/10 Specimen Type: PLASMA Comment: No hemolysis noted. Ordering Provider: SAUL VELAZQUEZ Report Released Date/Time: Oct 10, 2024 05:30 AM Reporting Lab: [place] [address] [facility] [address] Performing Lab: [place] [address] [facility] [address] [facility] COMPREHEN SIVE METABOLIC PANEL ALBUMIN [MASS/VOLUM E] IN SERUM OR PLASMA 4.3 g/dL 3.4 - 5 10/10 Specimen Type: PLASMA Comment: No hemolysis noted. Ordering Provider: SAUL VELAZQUEZ Report Released Date/Time: Oct 10, 2024 05:30 AM Reporting Lab: [place] [address] [facility] [address] Performing Lab: [place] [address] [facility] [address] [facility] COMPREHEN SIVE METABOLIC PANEL BILIRUBIN.T OTAL [MASS/VOLUM E] IN SERUM OR PLASMA 0.8 mg/dL 0.2 - 1.2 10/10 Specimen Type: PLASMA Comment: No hemolysis noted. Ordering Provider: SAUL VELAZQUEZ Report Released Date/Time: Oct 10, 2024 05:30 AM Reporting Lab: [place] [address] [facility] [address] Performing Lab: [place] [address] [facility] [address] [facility] COMPREHEN SIVE METABOLIC PANEL ALKALINE PHOSPHATASE [ENZYMATIC ACTIVITY/VO LUME] IN SERUM OR PLASMA 73 U/L 40 - 150 10/10 Specimen Type: PLASMA Comment: No hemolysis noted. Ordering Provider: SAUL VELAZQUEZ Report Released Date/Time: Oct 10, 2024 05:30 AM Reporting Lab: [address] [address] Performing Lab: [place] [address] [facility] [address] [facility] COMPREHEN SIVE METABOLIC PANEL ASPARTATE AMINOTRANSF ERASE [ENZYMATIC ACTIVITY/VO LUME] IN SERUM OR PLASMA 28 U/L 5 - 34 10/10 Specimen Type: PLASMA Comment: No hemolysis noted. Ordering Provider: SAUL VELAZQUEZ Report Released Date/Time: Oct 10, 2024 05:30 AM Reporting Lab: [place] [address] [facility] [address] Performing Lab: [address] [address] [facility] COMPREHEN SIVE METABOLIC PANEL ALANINE AMINOTRANSF ERASE [ENZYMATIC ACTIVITY/VO LUME] IN SERUM OR PLASMA 27 U/L 8 - 40 10/10 Specimen Type: PLASMA Comment: No hemolysis noted. Ordering Provider: SAUL VELAZQUEZ Report Released Date/Time: Oct 10, 2024 05:30 AM Reporting Lab: [place] [address] [facility] [address] Performing Lab: [address] [address] [facility] COMPREHEN SIVE METABOLIC PANEL GLOMERULAR FILTRATION RATE/1.73 SQ M.PREDICTED [VOLUME RATE/AREA] IN SERUM, PLASMA OR BLOOD BY CREATININE- BASED FORMULA (CKD-EPI 2020) 77.8 60 10/10 Specimen Type: PLASMA Comment: No hemolysis noted. Ordering Provider: SAUL VELAZQUEZ Report Released Date/Time: Oct 10, 2024 05:30 AM Reporting Lab: [place] [phone] Performing Lab: [address] [address] [facility] CBC LEUKOCYTES [#/VOLUME] IN BLOOD BY AUTOMATED COUNT 8.0 10*3/uL 3.6 - 11.2 10/10 Specimen Type: BLOOD No comment entered. Ordering Provider: SAUL VELAZQUEZ Report Released Date/Time: Oct 10, 2024 05:30 AM Reporting Lab: [place] [phone] Performing Lab: [place] [phone] CBC ERYTHROCYTE S [#/VOLUME] IN BLOOD BY AUTOMATED COUNT 5.33 10*6/uL 4.10 - 5.70 10/10 Specimen Type: BLOOD No comment entered. Ordering Provider: SAUL VELAZQUEZ Report Released Date/Time: Oct 10, 2024 05:30 AM Reporting Lab: [place] [phone] Performing Lab: [address] [address] [facility] CBC HEMOGLOBIN [MASS/VOLUM E] IN BLOOD 15.3 g/dL 13.1 - 16.8 10/10 Specimen Type: BLOOD No comment entered. Ordering Provider: SAUL VELAZQUEZ Report Released Date/Time: Oct 10, 2024 05:30 AM Reporting Lab: [place] [phone] Performing Lab: [address] [address] [facility] HEMATOCRIT [VOLUME FRACTION] OF BLOOD 45.3 38.2 - 48.4 10/10 Specimen Type: BLOOD No comment entered. Ordering Provider: SAUL VELAZQUEZ Report Released Date/Time: Oct 10, 2024 05:30 AM Reporting Lab: [address] [id number] Performing Lab: [address] [phone] [facility] CBC MCV [ENTITIC VOLUME] BY AUTOMATED COUNT 85.0 fL 80.0 - 100.0 10/10 Specimen Type: BLOOD No comment entered. Ordering Provider: SAUL VELAZQUEZ Report Released Date/Time: Oct 10, 2024 05:30 AM Reporting Lab: [place] [phone] Performing Lab: [address] [phone] [address] CBC MCH [ENTITIC MASS] BY AUTOMATED COUNT 28.7 pg 27.0 - 34.0 10/10 Specimen Type: BLOOD No comment entered. Ordering Provider: SAUL VELAZQUEZ Report Released Date/Time: Oct 10, 2024 05:30 AM Reporting Lab: [address] [address] Performing Lab: [address] [id number] [address] CBC MCHC [MASS/VOLUM E] BY AUTOMATED COUNT 33.8 g/dL 33.0 - 36.0 10/10 Specimen Type: BLOOD No comment entered. Ordering Provider: SAUL VELAZQUEZ Report Released Date/Time: Oct 10, 2024 05:30 AM Reporting Lab: [place] [address] [facility] [address] Performing Lab: [address] [address] [facility] CBC PLATELETS [#/VOLUME] IN BLOOD BY AUTOMATED COUNT 191 10*3/uL 150 - 400 10/10 Specimen Type: BLOOD No comment entered. Ordering Provider: SAUL VELAZQUEZ Report Released Date/Time: Oct 10, 2024 05:30 AM Reporting Lab: [facility] [address] [facility] [address] Performing Lab: [facility] [address] [place] [address] [facility] CBC PLATELET MEAN VOLUME [ENTITIC VOLUME] IN BLOOD BY AUTOMATED COUNT 9.3 fL 7.5 - 11.2 10/10 Specimen Type: BLOOD No comment entered. Ordering Provider: SAUL VELAZQUEZ Report Released Date/Time: Oct 10, 2024 05:30 AM Reporting Lab: [place] [address] [facility] [address] Performing Lab: [place] [address] [facility] [address] [facility] CBC ERYTHROCYTE DISTRIBUTIO N WIDTH [RATIO] BY AUTOMATED COUNT 13.2 11.8 - 15.1 10/10 Specimen Type: BLOOD No comment entered. Ordering Provider: SAUL VELAZQUEZ Report Released Date/Time: Oct 10, 2024 05:30 AM Reporting Lab: [place] [address] [facility] [address] Performing Lab: [place] [address] [facility] [address] [facility] CBC LYMPHOCYTES /100 LEUKOCYTES IN BLOOD BY AUTOMATED COUNT 35 10/10 Specimen Type: BLOOD No comment entered. Ordering Provider: SAUL VELAZQUEZ Report Released Date/Time: Oct 10, 2024 05:30 AM Reporting Lab: [place] [address] [facility] [address] Performing Lab: [place] [address] [facility] [address] [facility] CBC MONOCYTES/1 00 LEUKOCYTES IN BLOOD BY AUTOMATED COUNT 8 10/10 Specimen Type: BLOOD No comment entered. Ordering Provider: SAUL VELAZQUEZ Report Released Date/Time: Oct 10, 2024 05:30 AM Reporting Lab: [facility] [address] [facility] [address] Performing Lab: [facility] [address] [facility] [address] [facility] CBC NEUTROPHILS /100 LEUKOCYTES IN BLOOD BY AUTOMATED COUNT 52 10/10 Specimen Type: BLOOD No comment entered. Ordering Provider: SAUL VELAZQUEZ Report Released Date/Time: Oct 10, 2024 05:30 AM Reporting Lab: [facility] [address] [facility] [address] Performing Lab: [facility] [address] [facility] [address] [facility] CBC EOSINOPHILS /100 LEUKOCYTES IN BLOOD BY AUTOMATED COUNT 4 10/10 Specimen Type: BLOOD No comment entered. Ordering Provider: SAUL VELAZQUEZ Report Released Date/Time: Oct 10, 2024 05:30 AM Reporting Lab: [place] [address] [facility] [address] Performing Lab: [place] [address] [facility] [address] [facility] CBC BASOPHILS/1 00 LEUKOCYTES IN BLOOD BY AUTOMATED COUNT 1 10/10 Specimen Type: BLOOD No comment entered. Ordering Provider: SAUL VELAZQUEZ Report Released Date/Time: Oct 10, 2024 05:30 AM Reporting Lab: [place] [address] [facility] [address] Performing Lab: [place] [address] [facility] [address] [facility] CBC LYMPHOCYTES [#/VOLUME] IN BLOOD BY AUTOMATED COUNT 2.77 10*3/uL 0.77 - 4.50 10/10 Specimen Type: BLOOD No comment entered. Ordering Provider: SAUL VELAZQUEZ Report Released Date/Time: Oct 10, 2024 05:30 AM Reporting Lab: [place] [address] [facility] [address] Performing Lab: [facility] [address] [facility] [address] [facility] CBC MONOCYTES [#/VOLUME] IN BLOOD BY AUTOMATED COUNT 0.62 10*3/uL 0.19 - 0.80 10/10 Specimen Type: BLOOD No comment entered. Ordering Provider: SAUL VELAZQUEZ Report Released Date/Time: Oct 10, 2024 05:30 AM Reporting Lab: [place] [phone] Performing Lab: [place] [phone] CBC NEUTROPHILS [#/VOLUME] IN BLOOD BY AUTOMATED COUNT 4.13 10*3/uL 2.10 - 8.00 10/10 Specimen Type: BLOOD No comment entered. Ordering Provider: SAUL VELAZQUEZ Report Released Date/Time: Oct 10, 2024 05:30 AM Reporting Lab: [place] [address] Performing Lab: [place] [id number] CBC EOSINOPHILS [#/VOLUME] IN BLOOD BY AUTOMATED COUNT 0.34 10*3/uL 0.00 - 0.60 10/10 Specimen Type: BLOOD No comment entered. Ordering Provider: SAUL VELAZQUEZ Report Released Date/Time: Oct 10, 2024 05:30 AM Reporting Lab: [place] [phone] Performing Lab: [place] [phone] CBC BASOPHILS [#/VOLUME] IN BLOOD BY AUTOMATED COUNT 0.09 10*3/uL 0.00 - 0.20 10/10 Specimen Type: BLOOD No comment entered. Ordering Provider: SAUL VELAZQUEZ Report Released Date/Time: Oct 10, 2024 05:30 AM Reporting Lab: [place] [address] Performing Lab: [facility] [place] [address] [address] [facility] GLUCOSE,B LOOD-poct (STL) GLUCOSE [MASS/VOLUM E] IN BLOOD BY AUTOMATED TEST STRIP 84 mg/dL 72 - 99 07/24 Specimen Type: BLOOD Comment: Test Performed by: [id number] Meter #: [id number] Ordering Provider: MELECIO WEBB Report Released Date/Time: Jul 24, 2024 04:27 AM Reporting Lab: [place] [phone] Performing Lab: [place] [phone] URINALYSI S (STL-PB) COLOR OF URINE Light-Y ellow 07/17 Specimen Type: URINE No comment entered. Ordering Provider: PATRICK HOLT Report Released Date/Time: Jul 17, 2024 01:35 PM Reporting Lab: [place] [phone] Performing Lab: [place] [phone] URINALYSI S (STL-PB) BILIRUBIN.T OTAL [PRESENCE] IN URINE BY TEST STRIP Negativ emg/dL 07/17 Specimen Type: URINE No comment entered. Ordering Provider: PATRICK HOLT Report Released Date/Time: Jul 17, 2024 01:35 PM Reporting Lab: [address] [address] Performing Lab: [place] [phone] URINALYSI S (STL-PB) PH OF URINE BY TEST STRIP 8.0 5.0 - 8.0 07/17 Specimen Type: URINE No comment entered. Ordering Provider: PATRICK HOLT Report Released Date/Time: Jul 17, 2024 01:35 PM Reporting Lab: [address] [place] [address] Performing Lab: [address] [address] [facility] URINALYSI S (STL-PB) ERYTHROCYTE S [#/VOLUME] IN URINE SEDIMENT BY MICROSCOPY HIGH POWER FIELD 1 /[HPF] 0 - 5 07/17 Specimen Type: URINE No comment entered. Ordering Provider: PATRICK HOLT Report Released Date/Time: Jul 17, 2024 01:35 PM Reporting Lab: [address] [address] Performing Lab: [address] [address] [facility] URINALYSI S (STL-PB) APPEARANCE OF URINE Clear 07/17 Specimen Type: URINE No comment entered. Ordering Provider: PATRICK HOLT Report Released Date/Time: Jul 17, 2024 01:35 PM Reporting Lab: [address] [address] Performing Lab: [address] [address] [facility] URINALYSI S (STL-PB) NITRITE [PRESENCE] IN URINE BY TEST STRIP Negativ emg/dL 07/17 Specimen Type: URINE No comment entered. Ordering Provider: PATRICK HOLT Report Released Date/Time: Jul 17, 2024 01:35 PM Reporting Lab: [address] [address] Performing Lab: [address] [address] [facility] URINALYSI S (STL-PB) EPITHELIAL CELLS [#/AREA] IN URINE SEDIMENT BY MICROSCOPY LOW POWER FIELD <1/[HPF ] 0 - 5 07/17 Specimen Type: URINE No comment entered. Ordering Provider: PATRICK HOLT Report Released Date/Time: Jul 17, 2024 01:35 PM Reporting Lab: [place] [address] [facility] [address] Performing Lab: [address] [address] [facility] URINALYSI S (STL-PB) MUCUS [PRESENCE] IN URINE SEDIMENT BY LIGHT MICROSCOPY RARE/[L PF] 07/17 Specimen Type: URINE No comment entered. Ordering Provider: PATRICK HOLT Report Released Date/Time: Jul 17, 2024 01:35 PM Reporting Lab: [place] [address] [facility] [address] Performing Lab: [address] [address] [facility] URINALYSI S (STL-PB) GLUCOSE [MASS/VOLUM E] IN URINE BY TEST STRIP Normalm g/dL 07/17 Specimen Type: URINE No comment entered. Ordering Provider: PATRICK HOLT Report Released Date/Time: Jul 17, 2024 01:35 PM Reporting Lab: [address] [address] Performing Lab: [place] [address] [facility] [address] [facility] URINALYSI S (STL-PB) PROTEIN [MASS/VOLUM E] IN URINE BY TEST STRIP 20 mg/dL 07/17 H Specimen Type: URINE No comment entered. Ordering Provider: PATRICK HOLT Report Released Date/Time: Jul 17, 2024 01:35 PM Reporting Lab: [place] [address] [facility] [address] Performing Lab: [address] [address] [facility] URINALYSI S (STL-PB) URN.UROBILI NOGEN Normalm g/dL 07/17 Specimen Type: URINE No comment entered. Ordering Provider: PATRICK HOLT Report Released Date/Time: Jul 17, 2024 01:35 PM Reporting Lab: [place] [address] [facility] [address] Performing Lab: [address] [address] [facility] URINALYSI S (STL-PB) HEMOGLOBIN [MASS/VOLUM E] IN URINE BY TEST STRIP Negativ emg/dL 07/17 Specimen Type: URINE No comment entered. Ordering Provider: PATRICK HOLT Report Released Date/Time: Jul 17, 2024 01:35 PM Reporting Lab: [address] [address] Performing Lab: [address] [address] [facility] URINALYSI S (STL-PB) KETONES [MASS/VOLUM E] IN URINE BY TEST STRIP Negativ emg/dL 07/17 Specimen Type: URINE No comment entered. Ordering Provider: PATRICK HOLT Report Released Date/Time: Jul 17, 2024 01:35 PM Reporting Lab: [address] [address] Performing Lab: [address] [address] [facility] URINALYSI S (STL-PB) URN.LEUK.ES T. Negativ emg/dL 07/17 Specimen Type: URINE No comment entered. Ordering Provider: PATRICK HOLT Report Released Date/Time: Jul 17, 2024 01:35 PM Reporting Lab: [place] [address] [facility] [address] Performing Lab: [address] [address] [facility] URINALYSI S (STL-PB) SPECIFIC GRAVITY OF URINE 1.049 07/17 H Specimen Type: URINE No comment entered. Ordering Provider: PATRICK HOLT Report Released Date/Time: Jul 17, 2024 01:35 PM Reporting Lab: [address] [address] Performing Lab: [address] [address] [facility] LIPASE LIPASE [ENZYMATIC ACTIVITY/VO LUME] IN SERUM OR PLASMA 27 U/L 8 - 78 07/17 Specimen Type: PLASMA Comment: No hemolysis noted. Ordering Provider: PATRICK HOLT Report Released Date/Time: Jul 17, 2024 01:35 PM Reporting Lab: [address] [address] Performing Lab: [address] [address] [facility] COMPREHEN SIVE METABOLIC PANEL CREATININE [MASS/VOLUM E] IN SERUM OR PLASMA 1.39 mg/dL 0.7 - 1.3 07/17 H Specimen Type: PLASMA Comment: No hemolysis noted. Ordering Provider: PATRICK HOLT Report Released Date/Time: Jul 17, 2024 01:35 PM Reporting Lab: [address] [address] Performing Lab: [address] [address] [facility] COMPREHEN SIVE METABOLIC PANEL UREA NITROGEN [MASS/VOLUM E] IN SERUM OR PLASMA 12.6 mg/dL 9.0 - 25.0 07/17 Specimen Type: PLASMA Comment: No hemolysis noted. Ordering Provider: PATRICK HOLT Report Released Date/Time: Jul 17, 2024 01:35 PM Reporting Lab: [address] [address] Performing Lab: [address] [address] [facility] COMPREHEN SIVE METABOLIC PANEL GLUCOSE [MASS/VOLUM E] IN SERUM OR PLASMA 84 mg/dL 72 - 99 07/17 Specimen Type: PLASMA Comment: No hemolysis noted. Ordering Provider: PATRICK HOLT Report Released Date/Time: Jul 17, 2024 01:35 PM Reporting Lab: [facility] [address] [facility] [address] Performing Lab: [facility] [address] [facility] [address] [facility] COMPREHEN SIVE METABOLIC PANEL SODIUM [MOLES/VOLU ME] IN SERUM OR PLASMA 142 meq/L 136 - 145 07/17 Specimen Type: PLASMA Comment: No hemolysis noted. Ordering Provider: PATRICK HOLT Report Released Date/Time: Jul 17, 2024 01:35 PM Reporting Lab: [facility] [address] [place] [address] Performing Lab: [facility] [address] [place] [address] [facility] COMPREHEN SIVE METABOLIC PANEL POTASSIUM [MOLES/VOLU ME] IN SERUM OR PLASMA 3.8 meq/L 3.5 - 5 07/17 Specimen Type: PLASMA Comment: No hemolysis noted. Ordering Provider: PATRICK HOLT Report Released Date/Time: Jul 17, 2024 01:35 PM Reporting Lab: [facility] [address] [place] [address] Performing Lab: [facility] [address] [facility] [address] [facility] COMPREHEN SIVE METABOLIC PANEL CHLORIDE [MOLES/VOLU ME] IN SERUM OR PLASMA 107 meq/L 98 - 107 07/17 Specimen Type: PLASMA Comment: No hemolysis noted. Ordering Provider: PATRICK HOLT Report Released Date/Time: Jul 17, 2024 01:35 PM Reporting Lab: [facility] [address] [facility] [address] Performing Lab: [facility] [address] [place] [address] [facility] COMPREHEN SIVE METABOLIC PANEL CARBON DIOXIDE, TOTAL [MOLES/VOLU ME] IN SERUM OR PLASMA 26 meq/L 22 - 31 07/17 Specimen Type: PLASMA Comment: No hemolysis noted. Ordering Provider: PATRICK HOLT Report Released Date/Time: Jul 17, 2024 01:35 PM Reporting Lab: [facility] [address] [facility] [address] Performing Lab: [facility] [address] [facility] [address] [facility] COMPREHEN SIVE METABOLIC PANEL CALCIUM [MASS/VOLUM E] IN SERUM OR PLASMA 9.6 mg/dL 8.4 - 10.4 07/17 Specimen Type: PLASMA Comment: No hemolysis noted. Ordering Provider: PATRICK HOLT Report Released Date/Time: Jul 17, 2024 01:35 PM Reporting Lab: [place] [address] [facility] [address] Performing Lab: [facility] [address] [facility] [address] [facility] COMPREHEN SIVE METABOLIC PANEL PROTEIN [MASS/VOLUM E] IN SERUM OR PLASMA 7.0 g/dL 6 - 8.6 07/17 Specimen Type: PLASMA Comment: No hemolysis noted. Ordering Provider: PATRICK HOLT Report Released Date/Time: Jul 17, 2024 01:35 PM Reporting Lab: [place] [address] [facility] [address] Performing Lab: [facility] [address] [facility] [address] [facility] COMPREHEN SIVE METABOLIC PANEL ALBUMIN [MASS/VOLUM E] IN SERUM OR PLASMA 4.4 g/dL 3.4 - 5 07/17 Specimen Type: PLASMA Comment: No hemolysis noted. Ordering Provider: PATRICK HOLT Report Released Date/Time: Jul 17, 2024 01:35 PM Reporting Lab: [place] [address] [facility] [address] Performing Lab: [facility] [address] [place] [address] [facility] COMPREHEN SIVE METABOLIC PANEL BILIRUBIN.T OTAL [MASS/VOLUM E] IN SERUM OR PLASMA 0.7 mg/dL 0.2 - 1.2 07/17 Specimen Type: PLASMA Comment: No hemolysis noted. Ordering Provider: PATRICK HOLT Report Released Date/Time: Jul 17, 2024 01:35 PM Reporting Lab: [place] [address] [facility] [address] Performing Lab: [place] [address] [facility] [address] [facility] COMPREHEN SIVE METABOLIC PANEL ALKALINE PHOSPHATASE [ENZYMATIC ACTIVITY/VO LUME] IN SERUM OR PLASMA 78 U/L 40 - 150 07/17 Specimen Type: PLASMA Comment: No hemolysis noted. Ordering Provider: PATRICK HOLT Report Released Date/Time: Jul 17, 2024 01:35 PM Reporting Lab: [place] [address] [facility] [address] Performing Lab: [place] [address] [address] [facility] [address] [facility] COMPREHEN SIVE METABOLIC PANEL ASPARTATE AMINOTRANSF ERASE [ENZYMATIC ACTIVITY/VO LUME] IN SERUM OR PLASMA 13 U/L 5 - 34 07/17 Specimen Type: PLASMA Comment: No hemolysis noted. Ordering Provider: PATRICK HOLT Report Released Date/Time: Jul 17, 2024 01:35 PM Reporting Lab: [place] [address] [facility] [address] Performing Lab: [place] [address] [facility] [address] [facility] COMPREHEN SIVE METABOLIC PANEL ALANINE AMINOTRANSF ERASE [ENZYMATIC ACTIVITY/VO LUME] IN SERUM OR PLASMA 15 U/L 8 - 40 07/17 Specimen Type: PLASMA Comment: No hemolysis noted. Ordering Provider: PATRICK HOLT Report Released Date/Time: Jul 17, 2024 01:35 PM Reporting Lab: [facility] [address] [address] Performing Lab: [address] [address] [facility] COMPREHEN SIVE METABOLIC PANEL GLOMERULAR FILTRATION RATE/1.73 SQ M.PREDICTED [VOLUME RATE/AREA] IN SERUM, PLASMA OR BLOOD BY CREATININE- BASED FORMULA (CKD-EPI 2020) 67.8 60 07/17 Specimen Type: PLASMA Comment: No hemolysis noted. Ordering Provider: PATRICK HOLT Report Released Date/Time: Jul 17, 2024 01:35 PM Reporting Lab: [address] [address] Performing Lab: [address] [address] [facility] CBC LEUKOCYTES [#/VOLUME] IN BLOOD BY AUTOMATED COUNT 6.2 10*3/uL 3.6 - 11.2 07/17 Specimen Type: BLOOD No comment entered. Ordering Provider: PATRICK HOLT Report Released Date/Time: Jul 17, 2024 01:35 PM Reporting Lab: [address] [address] Performing Lab: [address] [address] [facility] CBC ERYTHROCYTE S [#/VOLUME] IN BLOOD BY AUTOMATED COUNT 5.64 10*6/uL 4.10 - 5.70 07/17 Specimen Type: BLOOD No comment entered. Ordering Provider: PATRICK HOLT Report Released Date/Time: Jul 17, 2024 01:35 PM Reporting Lab: [address] [address] Performing Lab: [address] [address] [facility] CBC HEMOGLOBIN [MASS/VOLUM E] IN BLOOD 16.1 g/dL 13.1 - 16.8 07/17 Specimen Type: BLOOD No comment entered. Ordering Provider: PATRICK HOLT Report Released Date/Time: Jul 17, 2024 01:35 PM Reporting Lab: [place] [phone] Performing Lab: [address] [phone] [address] CBC HEMATOCRIT [VOLUME FRACTION] OF BLOOD 46.8 38.2 - 48.4 07/17 Specimen Type: BLOOD No comment entered. Ordering Provider: PATRICK HOLT Report Released Date/Time: Jul 17, 2024 01:35 PM Reporting Lab: [place] [phone] Performing Lab: [address] CBC MCV [ENTITIC VOLUME] BY AUTOMATED COUNT 83.0 fL 80.0 - 100.0 07/17 Specimen Type: BLOOD No comment entered. Ordering Provider: PATRICK HOLT Report Released Date/Time: Jul 17, 2024 01:35 PM Reporting Lab: [place] [phone] Performing Lab: [address] [phone] [address] CBC MCH [ENTITIC MASS] BY AUTOMATED COUNT 28.5 pg 27.0 - 34.0 07/17 Specimen Type: BLOOD No comment entered. Ordering Provider: PATRICK HOLT Report Released Date/Time: Jul 17, 2024 01:35 PM Reporting Lab: [address] [address] Performing Lab: [address] [phone] [address] CBC MCHC [MASS/VOLUM E] BY AUTOMATED COUNT 34.4 g/dL 33.0 - 36.0 07/17 Specimen Type: BLOOD No comment entered. Ordering Provider: PATRICK HOLT Report Released Date/Time: Jul 17, 2024 01:35 PM Reporting Lab: [place] [address] [facility] [phone] Performing Lab: [address] [address] [facility] CBC PLATELETS [#/VOLUME] IN BLOOD BY AUTOMATED COUNT 201 10*3/uL 150 - 400 07/17 Specimen Type: BLOOD No comment entered. Ordering Provider: PATRICK HOLT Report Released Date/Time: Jul 17, 2024 01:35 PM Reporting Lab: [place] [address] [facility] [address] Performing Lab: [address] [phone] [facility] CBC PLATELET MEAN VOLUME [ENTITIC VOLUME] IN BLOOD BY AUTOMATED COUNT 9.4 fL 7.5 - 11.2 07/17 Specimen Type: BLOOD No comment entered. Ordering Provider: PATRICK HOLT Report Released Date/Time: Jul 17, 2024 01:35 PM Reporting Lab: [place] [address] [facility] [place] [phone] Performing Lab: [address] [phone] [facility] CBC ERYTHROCYTE DISTRIBUTIO N WIDTH [RATIO] BY AUTOMATED COUNT 13.0 11.8 - 15.1 07/17 Specimen Type: BLOOD No comment entered. Ordering Provider: PATRICK HOLT Report Released Date/Time: Jul 17, 2024 01:35 PM Reporting Lab: [place] [address] [facility] [phone] Performing Lab: [address] [phone] [facility] CBC LYMPHOCYTES /100 LEUKOCYTES IN BLOOD BY AUTOMATED COUNT 29 07/17 Specimen Type: BLOOD No comment entered. Ordering Provider: PATRICK HOLT Report Released Date/Time: Jul 17, 2024 01:35 PM Reporting Lab: [place] [address] [facility] [place] [phone] Performing Lab: [facility] [address] [facility] [phone] [facility] CBC MONOCYTES/1 00 LEUKOCYTES IN BLOOD BY AUTOMATED COUNT 7 07/17 Specimen Type: BLOOD No comment entered. Ordering Provider: PATRICK HOLT Report Released Date/Time: Jul 17, 2024 01:35 PM Reporting Lab: [facility] [address] [facility] [address] Performing Lab: [facility] [address] [facility] [phone] [facility] CBC NEUTROPHILS /100 LEUKOCYTES IN BLOOD BY AUTOMATED COUNT 59 07/17 Specimen Type: BLOOD No comment entered. Ordering Provider: PATRICK HOLT Report Released Date/Time: Jul 17, 2024 01:35 PM Reporting Lab: [facility] [address] [facility] [facility] [address] Performing Lab: [facility] [address] [facility] [phone] [facility] CBC EOSINOPHILS /100 LEUKOCYTES IN BLOOD BY AUTOMATED COUNT 4 07/17 Specimen Type: BLOOD No comment entered. Ordering Provider: PATRICK HOLT Report Released Date/Time: Jul 17, 2024 01:35 PM Reporting Lab: [facility] [address] [facility] [address] Performing Lab: [facility] [address] [facility] [address] [facility] CBC BASOPHILS/1 00 LEUKOCYTES IN BLOOD BY AUTOMATED COUNT 1 07/17 Specimen Type: BLOOD No comment entered. Ordering Provider: PATRICK HOLT Report Released Date/Time: Jul 17, 2024 01:35 PM Reporting Lab: [facility] [address] [facility] [address] Performing Lab: [facility] [address] [facility] [address] [facility] CBC LYMPHOCYTES [#/VOLUME] IN BLOOD BY AUTOMATED COUNT 1.82 10*3/uL 0.77 - 4.50 07/17 Specimen Type: BLOOD No comment entered. Ordering Provider: PATRICK HOLT Report Released Date/Time: Jul 17, 2024 01:35 PM Reporting Lab: [place] [phone] Performing Lab: [place] [phone] CBC MONOCYTES [#/VOLUME] IN BLOOD BY AUTOMATED COUNT 0.46 10*3/uL 0.19 - 0.80 07/17 Specimen Type: BLOOD No comment entered. Ordering Provider: PATRICK HOLT Report Released Date/Time: Jul 17, 2024 01:35 PM Reporting Lab: [place] [address] Performing Lab: [place] [phone] CBC NEUTROPHILS [#/VOLUME] IN BLOOD BY AUTOMATED COUNT 3.67 10*3/uL 2.10 - 8.00 07/17 Specimen Type: BLOOD No comment entered. Ordering Provider: PATRICK HOLT Report Released Date/Time: Jul 17, 2024 01:35 PM Reporting Lab: [place] [address] Performing Lab: [address] [phone] [address] CBC EOSINOPHILS [#/VOLUME] IN BLOOD BY AUTOMATED COUNT 0.22 10*3/uL 0.00 - 0.60 07/17 Specimen Type: BLOOD No comment entered. Ordering Provider: PATRICK HOLT Report Released Date/Time: Jul 17, 2024 01:35 PM Reporting Lab: [place] [phone] Performing Lab: [address] [facility] CBC BASOPHILS [#/VOLUME] IN BLOOD BY AUTOMATED COUNT 0.05 10*3/uL 0.00 - 0.20 07/17 Specimen Type: BLOOD No comment entered. Ordering Provider: PATRICK HOLT Report Released Date/Time: Jul 17, 2024 01:35 PM Reporting Lab: [place] [address] [place] [address] Performing Lab: [place] [address] [facility] [phone] BASIC METABOLIC PANEL CREATININE [MASS/VOLUM E] IN SERUM OR PLASMA 1.22 mg/dL 0.7 - 1.3 04/17 Specimen Type: PLASMA Comment: No hemolysis noted. Ordering Provider: RAJNI DOAN V Report Released Date/Time: Apr 16, 2024 04:01 PM Reporting Lab: [place] [address] [facility] [address] Performing Lab: [place] [address] [facility] [phone] [place] [address] BASIC METABOLIC PANEL UREA NITROGEN [MASS/VOLUM E] IN SERUM OR PLASMA 12.4 mg/dL 9.0 - 25.0 04/17 Specimen Type: PLASMA Comment: No hemolysis noted. Ordering Provider: RAJNI DOAN V Report Released Date/Time: Apr 16, 2024 04:01 PM Reporting Lab: [place] [address] [facility] [address] Performing Lab: [place] [address] [facility] [phone] [facility] BASIC METABOLIC PANEL GLUCOSE [MASS/VOLUM E] IN SERUM OR PLASMA 131 mg/dL 72 - 99 04/17 H Specimen Type: PLASMA Comment: No hemolysis noted. Ordering Provider: RAJNI DOAN V Report Released Date/Time: Apr 16, 2024 04:01 PM Reporting Lab: [place] [address] [facility] [phone] Performing Lab: [facility] [address] [facility] [place] [facility] [phone] [facility] BASIC METABOLIC PANEL SODIUM [MOLES/VOLU ME] IN SERUM OR PLASMA 139 meq/L 136 - 145 04/17 Specimen Type: PLASMA Comment: No hemolysis noted. Ordering Provider: RAJNI DOAN V Report Released Date/Time: Apr 16, 2024 04:01 PM Reporting Lab: [facility] [address] [place] [phone] Performing Lab: [facility] [address] [place] [phone] [facility] BASIC METABOLIC PANEL POTASSIUM [MOLES/VOLU ME] IN SERUM OR PLASMA 4.6 meq/L 3.5 - 5 04/17 Specimen Type: PLASMA Comment: No hemolysis noted. Ordering Provider: RAJNI DOAN V Report Released Date/Time: Apr 16, 2024 04:01 PM Reporting Lab: [address] [phone] Performing Lab: [facility] [address] [place] [phone] [facility] BASIC METABOLIC PANEL CHLORIDE [MOLES/VOLU ME] IN SERUM OR PLASMA 105 meq/L 98 - 107 04/17 Specimen Type: PLASMA Comment: No hemolysis noted. Ordering Provider: RAJNI DOAN V Report Released Date/Time: Apr 16, 2024 04:01 PM Reporting Lab: [facility] [address] [facility] [phone] Performing Lab: [address] [phone] [facility] BASIC METABOLIC PANEL CARBON DIOXIDE, TOTAL [MOLES/VOLU ME] IN SERUM OR PLASMA 23 meq/L 22 - 31 04/17 Specimen Type: PLASMA Comment: No hemolysis noted. Ordering Provider: RAJNI DOAN V Report Released Date/Time: Apr 16, 2024 04:01 PM Reporting Lab: [facility] [address] [facility] [place] [facility] [phone] Performing Lab: [place] [address] [facility] [place] [facility] [phone] [facility] BASIC METABOLIC PANEL CALCIUM [MASS/VOLUM E] IN SERUM OR PLASMA 9.2 mg/dL 8.4 - 10.4 04/17 Specimen Type: PLASMA Comment: No hemolysis noted. Ordering Provider: RAJNI DOAN V Report Released Date/Time: Apr 16, 2024 04:01 PM Reporting Lab: [place] [address] [facility] [place] [facility] [phone] Performing Lab: [address] [phone] [place] [address] BASIC METABOLIC PANEL GLOMERULAR FILTRATION RATE/1.73 SQ M.PREDICTED [VOLUME RATE/AREA] IN SERUM, PLASMA OR BLOOD BY CREATININE- BASED FORMULA (CKD-EPI 2020) 79.3 60 04/17 Specimen Type: PLASMA Comment: No hemolysis noted. Ordering Provider: RAJNI DOAN V Report Released Date/Time: Apr 16, 2024 04:01 PM Reporting Lab: [address] [phone] Performing Lab: [address] [phone] [facility] Vital Signs Combined list of inpatient and outpatient Vital Signs from Department of Defense and Veterans Affairs, ranging from 12 months to all on record, depending upon the facility. Vital Sign Value Date Comments Source SYSTOLIC BLOOD PRESSURE 130 12/24/2024 08:33:29 [facility] DIASTOLIC BLOOD PRESSURE 85 12/24/2024 08:33:29 [facility] PULSE OXIMETRY 97 12/24/2024 08:33:29 [facility] PAIN 3 12/24/2024 08:33:29 [facility] TEMPERATURE 97.5 12/24/2024 08:33:29 [facility] PULSE 80 12/24/2024 08:33:29 [facility] RESPIRATION 20 12/24/2024 08:33:29 [facility] SYSTOLIC BLOOD PRESSURE 132 10/10/2024 05:20:00 [facility] DIASTOLIC BLOOD PRESSURE 91 10/10/2024 05:20:00 [facility] PAIN 5 10/10/2024 05:20:00 [facility] TEMPERATURE 98.2 10/10/2024 05:20:00 [facility] PULSE 78 10/10/2024 05:20:00 [facility] RESPIRATION 18 10/10/2024 05:20:00 [facility] SYSTOLIC BLOOD PRESSURE 115 08/07/2024 15:10:24 [facility] DIASTOLIC BLOOD PRESSURE 73 08/07/2024 15:10:24 [facility] PULSE OXIMETRY 98 08/07/2024 15:10:24 [facility] WEIGHT 242.4 08/07/2024 15:10:24 [facility] BMI 31 kg/m2 08/07/2024 15:10:24 [facility] PAIN 0 08/07/2024 15:10:24 [facility] TEMPERATURE 98.5 08/07/2024 15:10:24 [facility] PULSE 95 08/07/2024 15:10:24 [facility] RESPIRATION 16 08/07/2024 15:10:24 [facility] SYSTOLIC BLOOD PRESSURE 136 07/24/2024 04:13:00 [facility] DIASTOLIC BLOOD PRESSURE 83 07/24/2024 04:13:00 [facility] PAIN 0 07/24/2024 04:13:00 [facility] TEMPERATURE 97.6 07/24/2024 04:13:00 [facility] PULSE 71 07/24/2024 04:13:00 [facility] RESPIRATION 18 07/24/2024 04:13:00 [facility] SYSTOLIC BLOOD PRESSURE 147 07/17/2024 13:29:00 [facility] DIASTOLIC BLOOD PRESSURE 82 07/17/2024 13:29:00 [facility] PAIN 6 07/17/2024 13:29:00 [facility] TEMPERATURE 97.9 07/17/2024 13:29:00 [facility] PULSE 89 07/17/2024 13:29:00 [facility] RESPIRATION 16 07/17/2024 13:29:00 [facility] Encounters Combined list of: 1) Encounters from Department of [facility] Affairs facilities going backup to the last 18 months, not all [place] inpatient encounters are included; 2) Encounters from the Department of [facility] facilities going backup to 280 months. Location Location Details Encounter Type Encounter Number Reason For Visit Attending Provider ADM Date DC Date Status Disposition Source [address] [place] [address] [facility]Ped iatrics) OUTPATIENT [id number] PHILIPP/SPO RTS PHY 9th Grade AHLTA SYSTEM ADMINISTRA TOR 04/[address] [place] [address] [facility]P ediatri cs) [address] [place] [address] [facility]Sco tt [facility] FAMRES Tm Blue) OUTPATIENT [id number] ear infecti on TABBY POP 03/14 Released w/o Limitations [address] [place] [address] [facility]S cott [facility] FAMRES Tm Blue) [address] [place] [address] [facility]Sco tt [facility] Fam Res Tm Green) OUTPATIENT [id number] cough JOSE CHEATHAM R E 08/13 Released w/o Limitations [address] [place] [address] [facility] [place]S cott [facility] Fam Res Tm Green) [address] [place] [address] [facility]Sco tt [facility] Fam Res Tm Green) OUTPATIENT [id number] rt eye redness with cold [phone] l# RONALDO DUMONT 01/27 Released w/o Limitations [address] [place] [address] [facility] ([facility]S cott [facility] Fam Res Tm Green) [address] [place] [address])(Opt ometry) OUTPATIENT [id number] lt eye swollen shut this am/eyel id kori TSANG ROSIBEL W 05/28 Released w/o Limitations [address] [place] [address])(O ptometr y) [facility](Op tometry [facility] 1523) OUTPATIENT [id number] Notes Entered by: CHINO LAWS 29 Apr 2012 0750 ------- ------- ------- ------- -- recruit screen P-3 Div 312 HANK DUBOIS 04/29 Released w/o Limitations [facility]( Optomet ry [facility] 1523) [facility](Au diology [facility] 1523) OUTPATIENT [id number] RAYNA JOSEPH 04/29 Released w/o Limitations [facility]( Audiolo gy [facility] 1523) [facility] OUTPATIENT [id number] ESME SILVA 05/02 Released w/o Limitations [facility]( [facility]) [address] [place] [address])(Sco tt [facility] Fam Res Tm Green) OUTPATIENT [id number] rt wrist pain/st iff and tender x 5 days [id number] IVELISSE BRUNNER 10/31 Released w/o Limitations [address] [place] [address] [facility]S cott [facility] Fam Res Tm Green) [facility](SD Gastro Liver Cln) OUTPATIENT [id number] RUQ PAIN NATASHA ARNETT 08/28 Released w/o Limitations [facility](S D Gastro Liver Cln) [facility](SD Gastroent erology Cln) TELE CONSULT [id number] Notes Entered by: LEANNA ARNETT 25 Sep 2013 0904 ------- ------- ------- ------- -- Lab result NATASHA ARNETT 09/25 [facility](S D Gastroe nterolo gy Cln) [facility](Jose al Station Optometry ) OUTPATIENT [id number] JULEE LAMBERT 10/03 Released w/o Limitations [facility](N aval Station Optomet ry) [facility](MSC [place]) OUTPATIENT [id number] referra l for vesecto my NATASHA KIMBALL 06/08 Released w/o Limitations [facility] [place]) [facility](Urology [place]) OUTPATIENT [id number] Encount er for contrac eptive managem ent, unspeci fied INES JERRY 06/29 Released w/o Limitations [facility](Uro logy [facility]) [facility](Emergen cy Medicine [facility]) OUTPATIENT [id number] DONNA SAPP 07/29 Released w/o Limitations [facility](Chela rgency Medicin e [facility]) [facility](Urology [facility]) OUTPATIENT [id number] 3 vas; resched from Sep EVANS WILEY 10/04 Released w/o Limitations [facility](Uro logy [facility]) [facility](COVID19 Scrn & Test [facility]) OUTPATIENT [id number] CTAACC BOOKED NATASHA SALAS 11/24 Released w/o Limitations [facility](COV ID19 Scrn & Test [facility]) [facility](Optomet ry [place]) OUTPATIENT [id number] EYE EXAM FIGUEROA DANIEL NMN 12/07 Released w/o Limitations [facility](Opt ometry [place]) [facility](Optomet ry [place]) OUTPATIENT [id number] Visual Field FIGUEROA, DANIEL NMN 12/14 Released w/o Limitations [facility](Opt ometry [place]) [facility](COVID19 Scrn & Test NMCP) OUTPATIENT [id number] CTAACC BOOKED CINDA DELACRUZ 12/23 Released w/o Limitations [facility](COV ID19 Scrn & Test NMCP) [facility] NN) TELE CONSULT [id number] Notes Entered by: Sandrine ALMONTE 15 Feb 2021 1149 ------- ------- ------- ------- -- lab f/u PASCUAL ALMONTE 02/15 [facility] Health [place]) [facility](Hearing Cons [place]) OUTPATIENT [id number] Notes Entered by: Justin WALLER 17 Mar 2021 1035 ------- ------- ------- ------- -- SURGEMA IN SEBASTIEN WALLER 03/17 Released w/o Limitations [facility](Hea ring Cons [place]) [facility] [place]) OUTPATIENT [id number] MIKE BARRIOS 04/07 Released w/o Limitations [facility](MSC [place]) [facility] ([facility])(War rior Op Med Cln Tm A Ad) TELE CONSULT [id number] Notes Entered by: SUKH DELVALLE RET 29 Aug 2021 1111 ------- ------- ------- ------- -- Appt Resched sleep issues/ Alec /* CLAUDIA Manzo 08/29 Referred for Appointment [facility] ([facility])(W arrior Op Med Cln Tm A Ad) [facility] ([facility])(War rior Op Med Cln Tm A Ad) OUTPATIENT [id number] F2F Discuss Sleep Concern s GABINO REIS 09/13 Released w/o Limitations [address] [place] [address] Group [facility] ([facility])(W arrior Op Med Cln Tm A Ad) N. [facility] Outpatient Encounter [id number] 07/24 N. [facility] N. [facility] Outpatient Encounter [id number] DEEPTHI BURDEN 08/08 [facility] [place] [facility] Outpatient Encounter [id number] DEEPTHI BURDEN 08/08 [facility] [place] [facility] N. [facility] EMERGENCY DEPT VISIT LOW MDM [id number] Diagnos is: ICD-10- CM R11.2 Nausea with vomitin g, unspeci fied CLAUDIO HERNÁNDEZ AND R 08/08 [place] [place] [facility] OFFICE O/P NEW MOD 45-59 MIN [id number] Diagnos is: ICD-10- CM F41.9 Anxiety disorde r, unspeci fied KATIANA-CAB NATE NEWBERRY SSE 08/28 [facility] PSYTX W PT 45 MINUTES [id number] Diagnos is: ICD-10- CM F41.9 Anxiety disorde r, unspeci fied RADHA AWAD S 08/28 [facility] THERAPEUTI C EXERCISES [id number] Diagnos is: ICD-10- CM M54.50 Low back pain, unspeci fied DOSHI,ARSENIO ISTINE N 09/02 [facility] N. [facility] Outpatient Encounter [id number] 09/25 N. [facility] N. [facility] Outpatient Encounter [id number] 09/[address] [facility] ECHO EXAM OF EYE THICKNESS [id number] Diagnos is: ICD-10- CM H52.13 Myopia, bilater al FR VIK DAVIS L 09/26 [facility] PSYTX W PT 45 MINUTES [id number] Diagnos is: ICD-10- CM F41.1 General ized anxiety disorde r RADHA AWAD S 09/26 [facility] N. [facility] Outpatient Encounter [id number] RADHA AWAD S 09/26 N. [facility] N. [facility] Outpatient Encounter [id number] KATIANA-CAB AILINANATE SSE 10/28 [facility] Outpatient Encounter [id number] 11/07 [facility] N. [facility] Outpatient Encounter [id number] 11/10 [facility] N. [facility] EMERGENCY DEPT VISIT MOD MDM [id number] Diagnos is: ICD-10- CM K80.70 Calculu s of GB and bile duct w/o cholecy st w/o obstruc tion GOFF,APRI L 11/10 [facility] N. [facility] Outpatient Encounter [id number] GOFF,APRI L 11/10 [facility] THERAPEUTI C EXERCISES [id number] Diagnos is: ICD-10- CM M54.50 Low back pain, unspeci fied DOSHI,CHR ISTINE N 11/[address] [facility] OFFICE O/P EST MOD 30 MIN [id number] Diagnos is: ICD-10- CM Z11.59 Encount er for screeni ng for other viral disease s DIAZ RADER 11/12 [facility] Outpatient Encounter [id number] NATE QUINONES SSE 11/15 [facility] Outpatient Encounter [id number] RADHA AWAD S 11/15 [facility] Outpatient Encounter [id number] 11/19 [facility] En[facility] [id number] [id number] PAM HANNA 11/21 [facility] Outpatient Encounter [id number] 12/03 [facility] EMERGENCY DEPT VISIT LOW MDM [id number] [id number] Diagnos is: ICD-10- CM M54.2 Cervica lgia ,LE S E 12/03 [facility] Outpatient Encounter [id number] DOSHI,ARSENIO ISTINE N 12/08 [facility] PSYTX W PT 30 MINUTES [id number] Diagnos is: ICD-10- CM F41.1 General ized anxiety disorde r RADHA AWAD S 12/09 [facility] Outpatient Encounter [id number] RADHA AWAD S 12/09 [facility] Outpatient Encounter [id number] MICAH HEWITT 12/17 [facility] OFFICE O/P NEW SF 15 MIN [id number] [id number] Diagnos is: ICD-10- CM Z02.89 Encount er for other adminis trative examina tions MARY VILCHIS N 12/29 [facility] Outpatient Encounter [id number] MICAH HEWITT RRY 01/07 [facility] EMERGENCY DEPT VISIT MOD MDM [id number] Diagnos is: ICD-10- CM R10.9 Unspeci fied abdomin al pain ISABELLETOMI NE 01/17 [facility] Outpatient Encounter [id number] TOMI WALTON NE 01/17 [facility] OFFICE O/P EST MOD 30 MIN [id number] Diagnos is: ICD-10- CM F33.1 Major depress kayli disorde r, recurre nt, moderat e DEMETRIUS MOSLEY 01/22 [facility] OFF/OP CNSLTJ NEW/EST MOD 40 [id number] Diagnos is: ICD-10- CM K80.81 Other choleli thiasis with obstruc tion ANGELA EDWARDS TTHEW H 02/02 [facility] Outpatient Encounter [id number] 02/02 [facility] Outpatient Encounter [id number] 02/02 [facility] Outpatient Encounter [id number] 02/03 [facility] Outpatient Encounter [id number] MAGEDADIDENISJustin LOUIS 02/03 [facility] EGD DIAGNOSTIC BRUSH WASH [id number] [id number] Diagnos is: ICD-10- CM K21.00 Gastro- esophag eal reflux dis with esophag itis, without bleed NISSANGELA HOUSE TTHEW H 02/03 [facility] OFFICE O/P EST SF 10 MIN [id number] Diagnos is: ICD-10- CM Z01.818 Encount er for other preproc edural examina GABRIELA Mcgrath 02/03 [facility] Outpatient Encounter [id number] 02/03 [facility] PSYTX W PT 30 MINUTES [id number] Diagnos is: ICD-10- CM F33.1 Major depress kayli disorde r, recurre nt, moderat e Juan PHILIPPE 02/03 [facility] HC PRO PHONE CALL 11-20 MIN [id number] Diagnos is: ICD-10- CM Z13.31 Encount er for screeni ng for depress ion GERHARD MOREJON 02/04 [facility] OFFICE O/P NEW MOD 45 MIN [id number] Diagnos is: ICD-10- CM K80.80 Other choleli thiasis without obstruc tion UDAY,DELILAH OR C 02/06 [facility] Outpatient Encounter [id number] Diagnos is: ICD-10- CM F33.1 Major depress kayli disorde r, recurre nt, moderat e OSVALDO,SAMANTHA EVANS D 02/06 [facility] OFFICE O/P NEW SF 15 MIN [id number] Diagnos is: ICD-10- CM Z02.89 Encount er for other adminis trative examina tions MARY VILCHIS 02/13 [facility] Outpatient Encounter [id number] MICAH HEWITT RRMeme 02/19 [facility] Outpatient Encounter [id number] 02/19 [facility] Outpatient Encounter [id number] 02/23 [facility] OFFICE O/P EST LOW 20 MIN [id number] [id number] Diagnos is: ICD-10- CM Z02.9 Encount er for adminis trative examina tions, unspeci ROYA Longoria 02/23 [facility] HC PRO PHONE CALL 11-20 MIN [id number] Diagnos is: ICD-10- CM Z13.31 Encount er for screeni ng for depress ion GERHARD MOREJON 02/24 [facility] OFF/OP CNSLTJ NEW/EST MOD 40 [id number] [id number] Diagnos is: ICD-10- CM I20.9 Angina pectori s, unspeci fied GLORIA WELCH A 02/26 [facility] Outpatient Encounter [id number] [id number] 02/26 [facility] PSYTX W PT 45 MINUTES 73524-9.65 [id number] Diagnos is: ICD-10- CM F33.1 Major depress kayli disorde r, recurre nt, moderat e CALOSMADYSON R 02/26 [facility] Outpatient Encounter [id number] [id number] 4 Diagnos is: ICD-10- CM R07.9 Chest pain, unspeci fied BETITO,PRINCESS SHARI R 02/27 [facility] Outpatient Encounter [id number] [id number] 6 Diagnos is: ICD-10- CM R07.9 Chest pain, unspeci fied LEIGHAHEA THER 02/27 [facility] EMERGENCY DEPT VISIT [facility] 52406-3.65 [id number] 4 Diagnos is: ICD-10- CM Z23 Encount er for immuniz ation SERGEI SCHULZ 02/27 [facility] Outpatient Encounter 47625-7.65 [id number] 3 SERGEI SCHULZ 02/27 [facility] PSYTX W PT 45 MINUTES 16206-5.65 [id number] Diagnos is: ICD-10- CM F33.1 Major depress kayli disorde r, recurre nt, moderat e MADYSON LIVE 03/03 [facility] Outpatient Encounter [id number] [id number] 1 MADYSON LIVE R 03/03 [facility] Outpatient Encounter [id number] [id number] 1 MADYSON LIVE 03/03 [facility] OFFICE O/P EST MOD 30 MIN 21273-6.65 [id number] 4 Diagnos is: ICD-10- CM Z02.89 Encount er for other adminis trative examina tions ROYA CARTAGENA 03/04 [facility] Outpatient Encounter [id number] [id number] 597 03/05 [facility] Outpatient Encounter [id number] [id number] 1 MADYSON LIVE 03/13 [facility] HC PRO PHONE CALL 5-10 MIN 23196-9.65 [id number] 5 Diagnos is: ICD-10- CM K80.20 Calculu s of mary dder w/o cholecy stitis w/o obstruc tion PEOPLES,NI JEL C 03/16 [facility] Outpatient Encounter [id number] [id number] 03/17 [facility] Outpatient Encounter [id number] [id number] 3 MADYSON LIVE 03/20 [facility] PSYTX W PT 45 MINUTES 05802-5.65 [id number] Diagnos is: ICD-10- CM F33.1 Major depress kayli disorde r, recurre nt, moderat e BORNMADYSON R 03/25 [facility] Outpatient Encounter [id number] [id number] Diagnos is: ICD-10- CM M54.50 Low back pain, unspeci GERHARD ChanIFER 03/25 [facility] EMERGENCY DEPT VISIT [facility] 15451-4.65 [id number] 0 Diagnos is: ICD-10- CM S32.000 A Wedge ovidio antonietta fractur e of unsp lumbar vertebr a, init JESSICA PATTEN 03/25 [facility] Outpatient Encounter [id number] [id number] 3 JESSICA PATTEN 03/25 [facility] Outpatient Encounter 80027-3.65 [id number] 5 JESSICA PATTEN 03/25 [facility] Outpatient Encounter 03460-6.65 [id number] 8 Karen HOLLOWAY 03/27 [facility] Outpatient Encounter [id number] [id number] 6 Diagnos is: ICD-10- CM M54.51 Vertebr ogenic low back pain DAVID CULLEN 03/30 [facility] Outpatient Encounter [id number] [id number] 3 Karen HOLLOWAY 03/31 [facility] MTMS BY PHARM ADDL 15 MIN 47636-8.65 [id number] Diagnos is: ICD-10- CM Z79.899 Other custodial (curren t) drug therapy DANIEL GIBBS 04/02 [facility] DIAGNOSTIC EVALUATION 10827-7.65 [id number] 192 Diagnos is: ICD-10- CM F33.1 Major depress kayli disorde r, recurre nt, moderat e MADYSON LIVE R 04/08 [facility] Outpatient Encounter [id number] [id number] 8 BORNMADYSON R 04/08 [facility] Outpatient Encounter [id number] [id number] 1 MADYSON LIVE R 04/08 [facility] EMERGENCY DEPT VISIT MOD MDM 15948-9.65 [id number] 3 Diagnos is: ICD-10- CM R10.10 Upper abdomin al pain, unspeci fied LEEANNE GRAY ED K 04/16 [facility] Outpatient Encounter [id number] [id number] 4 04/16 [facility] 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 INDIVIDU 62408-2.65 [id number] 9 Diagnos is: ICD-10- CM Z71.81 Spiritu al or religio us licensed mental health counselor SOWMYA Antunez 04/16 [facility] Outpatient Encounter 54947-0.65 [id number] 5 04/16 [facility] Inpatient Encounter 90623-5.65 [id number] 4 04/16 [facility] Robotic Assisted Procedure of Trunk, Perc Endo Approach 30762-9.65 [id number] Admit Reason: INTRACT ABLE BILARY COLIC JASWINDER ASH 04/16 Discharge from inpatient treatment to the [facility] (OPT-MS) [facility] H[facility] IP/OBS MODERATE 55 96429-1.65 [id number] CASPER ARNETT E III 04/16 [facility] Inpatient Encounter [id number] [id number] 1 JAH HUDDLESTON A 04/16 [facility] Inpatient Encounter 89777-6.65 [id number] 7 JAH HUDDLESTON A 04/16 [facility] Inpatient Encounter 31633-1.65 [id number] 1 JAH HUDDLESTON A 04/16 [facility] Inpatient Encounter 46450-2.65 [id number] 9 O'SAUL-LAC SAM DURAN 04/16 [facility] Inpatient Encounter 28510-1.65 [id number] 2 JO ANN HINDS 04/17 [facility] Inpatient Encounter 30727-1.65 [id number] 4 O'SAUL-LAC RENEESAM 04/17 [facility] Inpatient Encounter 24547-2.65 [id number] 4 O'SAUL-LAC EY,SAM 04/17 [facility] Inpatient Encounter 90965-9.65 [id number] 4 O'SAUL-LAC EY,SAM 04/17 [facility] SBSQ HOSP IP/OBS MODERATE 35 14385-3.65 [id number] 7 CASPER ARNETT III 04/17 [facility] Inpatient Encounter [id number] [id number] 3 CHRISTIANO RODRIGUEZ 04/17 [facility] OFFICE O/P EST LOW 20 MIN 63855-5.65 [id number] 6 Diagnos is: ICD-10- CM Z01.818 Encount er for other preproc edural examina tiMELIZA Martel 04/17 [facility] Inpatient Encounter 48403-9.65 [id number] 0 MELIZA BLANCO 04/17 [facility] Inpatient Encounter 36921-2.65 [id number] 3 CAROLYN ANTONY 04/17 [facility] Inpatient Encounter 63802-7.65 [id number] 7 JASWINDER ASH 04/17 [facility] Inpatient Encounter 09645-3.65 [id number] 8 JUAN,Karen PAULINO 04/17 [facility] Inpatient Encounter 43780-0.65 [id number] 2 JUANKaren PAULINO 04/17 [facility] Inpatient Encounter 36849-2.65 [id number] 2 HALIMANIKOLAIPHILIPP 04/17 [facility] Inpatient Encounter 70484-6.65 [id number] 3 BEN MONTEMAYOR 04/17 [facility] Inpatient Encounter 92541-2.65 [id number] 3 CHRISTIANO RODRIGUEZ 04/17 [facility] Inpatient Encounter 26605-6.65 [id number] 3 O'SAUL-LAC EY,SAM 04/17 [facility] Inpatient Encounter [id number] [id number] 8 O'SAUL-LAC EY,SAM 04/18 [facility] Encounter 47554-4.65 [id number] 1 O'SAUL-LAC EY,SAM 04/18 [facility] Inpatient Encounter 70752-7.65 [id number] 3 DELILAH FRYE 04/18 [facility] Outpatient Encounter 78703-3.65 [id number] 5 MORALES,AM NA 04/21 [facility] Outpatient Encounter 27960-5.65 [id number] 6 MADYSON LIVE 04/22 [facility] OFF/OP EST MAY X REQ PHY/QHP 15198-7.65 [id number] Diagnos is: ICD-10- CM K81.0 Acute cholecy stitis WILLI,AM Y E 04/22 [facility] Outpatient Encounter 78195-3.65 [id number] 7 04/23 [facility] OFF/OP CNSLTJ NEW/EST MOD 40 36520-4.65 [id number] 2 Diagnos is: ICD-10- CM S32.030 A Wedge ovidio antonietta fractur e of third lumbar vertebr a, init CARAGINE,L OUIS P 04/27 [facility] Outpatient Encounter [id number] [id number] 2 04/28 [facility] Outpatient Encounter [id number] [id number] 9 05/01 [facility] Outpatient Encounter 22606-5.65 [id number] 5 05/07 [facility] OFFICE O/P EST LOW 20 MIN 49222-0.65 [id number] 5 Diagnos is: ICD-10- CM K81.2 Acute cholecy stitis with chronic cholecy stitis ARUN DIZA 05/15 [facility] Outpatient Encounter 53048-7.65 [id number] 3 AJIT TIAN SA S 05/18 [facility] PSYTX W PT 45 MINUTES 19916-0.65 [id number] Diagnos is: ICD-10- CM F33.1 Major depress kayli disorde r, recurre nt, moderat e CALOSMADYSON R 05/28 [facility] Outpatient Encounter 89192-3.65 [id number] 5 Diagnos is: ICD-10- CM Z02.9 Encount er for adminis trative examina tions, unspeci IZZY Hodge G 05/28 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 OFFICE O/P NEW LOW 30 MIN 72931-8.65 [id number] 2 Diagnos is: ICD-10- CM E55.9 Vitamin D deficie ncy, unspeci fied RAMÓN ZAMORANO HEATHER T 06/29 [facility] SPECIAL REPORTS OR FORMS 41774-565 [id number] 7 Diagnos is: ICD-10- CM Z02.89 Encount er for other adminis trative examina tions CADY GÓMEZ SSA E 07/09 [facility] Outpatient Encounter [id number] [id number] 7 SHANIAKATHIEPATRICK DOUGHERTY 07/17 [facility] MEASURE BLOOD OXYGEN LEVEL 16868-8.65 [id number] 5 Diagnos is: ICD-10- CM Z71.1 Person w feared hlth complai nt in whom no diagnos is is made SHANIAPATRICK VÁZQUEZ 07/17 [facility] Outpatient Encounter 70517-9.65 [id number] 07/17 [facility] Outpatient Encounter 58377-2.65 [id number] 6 SHANIAKATHIEPATRICK DOUGHERTY 07/17 [facility] Outpatient Encounter 47995-5.65 [id number] 1 GEMMELL,AM Y E 07/19 [facility] OFF/OP EST JANUARY X REQ PHY/QHP 17238-0.65 [id number] Diagnos is: ICD-10- CM K59.00 Constip ation, unspeci fied GEMMELL,AM Y E 07/22 [facility] EMERGENCY DEPT VISIT LOW MDM 33184-7.65 [id number] 6 Diagnos is: ICD-10- CM R42 Dizzine ss and giddine ss MELECIO WEBB 07/24 [facility] FRANDY MCKEON [facility] Outpatient Encounter [id number] [id number] 07/25 [facility] Outpatient Encounter 22798-8.56 [id number] 07/28 [facility] Outpatient Encounter 37302-3.56 [id number] GUILHERME LUND 07/28 [facility] Outpatient Encounter 26849-3.65 [id number] 3 GEMMELL,AM Y E 07/29 [facility] Outpatient Encounter 50489-5.65 [id number] 0 GEMMELL,AM Y E 07/29 [facility] Outpatient Encounter [id number] [id number] 07/30 [facility] Outpatient Encounter [id number] [id number] 5 08/05 [facility] OFFICE O/P EST MOD 30 MIN 29283-9.65 [id number] Diagnos is: ICD-10- CM Z09 Encntr for f/u exam aft trtmt for cond oth than malig AJIT Whitt SA S 08/07 [facility] Outpatient Encounter [id number] [id number] 1 08/10 [facility] Outpatient Encounter 89472-5.65 [id number] 5 08/10 [facility] Outpatient Encounter 69247-7.65 [id number] 9 MIKE OROURKE 08/12 [facility] Outpatient Encounter 41407-3.65 [id number] 9 08/13 [facility] Outpatient Encounter 38796-3.65 [id number] 5 Sandrine STEWARD MD 10/10 [facility] EMERGENCY DEPT VISIT LOW MDM 72733-5.65 [id number] 2 Diagnos is: ICD-10- CM R10.10 Upper abdomin al pain, unspeci fied Sandrine STEWARD MD 10/10 [facility] Outpatient Encounter 76122-9.65 [id number] 4 Sandrine STEWARD MD 10/10 [facility] Outpatient Encounter 44855-4.65 [id number] 4 10/22 [facility] Outpatient Encounter 42254-7.65 [id number] 2 11/14 [facility] [id number]-375 th [facility] Care Not Rendered [id number] Encount er for pre-emp loyment examina tion VADIM KO 11/24 Discharge Disposition: ADMIN 0055C-3 [facility] [facility] OFFICE O/P NEW MOD 45 MIN 16781-8.65 [id number] Diagnos is: ICD-10- CM S32.020 S Wedge ovidio antonietta fractur e of second lum vertebr a, sequela ALPA OSBORNE 12/24 [facility] Outpatient Encounter [id number] [id number] 9 INDIO HONG 12/29 [facility] Outpatient Encounter [id number] [id number] 2 MICAH HEWITT RRY 12/30 [facility] COMPREHENS VE ORAL EVALUATION 93839-1.65 [id number] 2 Diagnos is: ICD-10- CM Z01.20 Encount er for dental exam and cleanin g w/o abnorma l finding s ADAIR HERNANDEZ 01/08 [facility] Outpatient Encounter 48105-3.65 [id number] 01/08 [facility] Procedures Combined list of: 1) Procedures from Department of Veterans Affairs facilities going back up to thelast 18 months, not all [place] non-surgical procedures are included; 2) All procedures from the Department of Defense facilities. Procedure Procedure Type Code Date Perfomer Comments Sourc e No data available for this section Ambulato ry Pharmacy No data is provided for this section because a [facility] internal system error occurred when retrieving data. A future request for this document may succe fully include data for this section if the system i ue has been resolved. [facility] LAPAROSCOPIC ROBOTIC ASSISTED CHOLECYSTECTOMY LAPAROSCOPIC CHOLECYSTECTOMY [id number] 04/17/20 24 Juan ASH [facility] Social History Combined list of available smoking, tobacco, and other social history from Department of Defense and Veterans Affairs facilities. Social History Type Response Date Comment Sourc e Tobacco smoking status NHIS VA-TOBACCO FORMER USER 01/08/2024 [facility] History of tobacco use VA-TOBACCO QUIT 1 5 YRS OR MORE 01/08/2024 [facility] History of tobacco use VA-TOBACCO FORMER USER 12/18/2023 [facility] History of tobacco use VA-TOBACCO NEVER USED 05/14/2023 [facility] History of tobacco use VA-TOBACCO QUIT 1 TO < 5 YRS 04/18/2022 [facility] Sex Representation Male (finding) 12/10/2021 Un known Organization Sexual Orientation Ambula tory Pharmacy Gender identity Ambulator y Pharmacy This section is an empty social history section. DoD Assessment and Plan Combined list of future care activities from Department of Defense and Veterans Affairs facilities (e.g., assessment and plan notes, appointments, orders, and referrals). Additional future care activities may be listed in the Plan of Care section. Result Assessment and Plan Date Source Assessment and Plan No data available for this section 01/15/2025 Ambulatory Pharmacy Plan of Care List of future care activities from Department [facility] facilities. Additional future care activities may be listed in the Assessment and Plan section. Date/Time Care Activity Care Activity Detail Facili ty 01/19/2025 AMBULATORY - REHAB MEDICINE AMBULATORY - REHAB MEDICINE [facility] Advance Directives List of completed, amended, or rescinded Advance Directives on record at Department of [facility] facilities. An actual copy of the Directive is not included. Date Advance Directive Provider Source 08/28/2023 ADVANCE DIRECTIVE NO TIFICATION AND SCREENING SYLWIA SANTIAGO [facility] 05/14/2023 ADVANCE DIRECTIVE NO TIFICATION AND SCREENING SYLWIA SANTIAGO [facility] Functional Status Combined list of recent functional and cognitive assessments recorded at Department of Defense and Veterans Affairs (NE).NE Functional [place] Measurement (FIM) Scale: 1 = Total Assistance (Subject = 0% +), 2 = Maximal Assistance (Subject = 25% +), 3 = Moderate Assistance (Subject = 50% +), 4 = Minimal Assistance (Subject = 75% +), 5 = Supervision, 6 = Modified [place] (Device), 7 = Complete [place] (Timely, Safely). Assessment Date/Time Source Assessment Type Assessment Skill Assessment Score Assessment Details No data available for this section
--- OUTSIDE RECORDS SUMMARY | 2025-01-15 07:40 | XMS_ITS ---
Author Name [facility] Address [address] [place] [address] Care Team Providers Care Postulant Name Role Phone BROOKLYN ARAGON Primary Care [...] FOCUS FAMIL Y Oct 08, [phone] [id number] [phone] REISING,T YLER PATIENT CAREMARK ([id number])RX PRESCRIPT ION GEHA Oct 04, 2024 [id number] [phone] REISING,T YLER PATIENT CAREMARK FEP [id number] PRESCRIPT ION FEPRX Aug 16, 2019 [id number] [phone] REISING,T YLER PATIENT GEHA PREFERRED PROVIDER ORGANIZAT ION (PPO) GEHA STAND EVELYN Oct 04, 2024 [id number] [phone] REISING,T YLER PATIENT Selected Encounter This section includes the information on record at NH for the Encounter. Date/Time Encounter Type Encounter Description Reason Provider Source Feb 24, 2024 04:39 PM OFFICE O/P EST LOW 20 MIN OCCUPATIONAL HEALTH ICD-10-CM Z02.9 Encounter for administrative examinations, unspecified PHILIPPMICHAELWILLAHIRAM Karen Encounter Template Text not used by NH Assessments - Encounter Diagnoses This section includes the primary and secondary diagnoses documented for the Encounter. Date/Time Primary/Secondary Diagnosis Diagnosis Name Provider Source Feb 24, 2024 04:45 PM PRIMARY Encounter for administrative examinations, unspecified [facility]ILIPPMICHAELWILLAR[facility]A [facility] Plan of Treatment: Future Appointments (+ 6 months) and Future Tests (+/- 45 days) The Plan of Treatment section includes future care activities for the patient from all [facility]. This section includes future appointments and future orders which are active, pending or scheduled. Future Appointments This section includes appointments that were scheduled to occur 6 months from the date of the Encounter, up to a maximum of 20 appointments. The data comes from all [place] treatment facilities. Appointment Date/Time Appointment Type Appointme nt Facility Name Feb 27, 2024 01:00 PM AMBULATORY - MEDICINE [facility] Feb 27, 2024 03:00 PM AMBULATORY - PSYCHIATRY [facility] Feb 28, 2024 07:09 PM AMBULATORY - MEDICINE [facility] Mar 03, 2024 02:00 PM AMBULATORY - PSYCHIATRY [facility] Mar 04, 2024 11:00 AM AMBULATORY - MEDICINE [facility] Mar 13, 2024 11:00 AM AMBULATORY - PSYCHIATRY [facility] Mar 20, 2024 09:00 AM AMBULATORY - PSYCHIATRY [facility] Mar 25, 2024 04:00 PM AMBULATORY - PSYCHIATRY [facility] Mar 25, 2024 06:00 PM AMBULATORY - MEDICINE [facility] Apr 08, 2024 02:00 PM AMBULATORY - PSYCHIATRY [facility] Apr 16, 2024 03:06 AM AMBULATORY - MEDICINE [facility] Apr 16, 2024 08:30 AM AMBULATORY - SURGERY . [facility] Apr 22, 2024 02:00 PM AMBULATORY - PSYCHIATRY [facility] Apr 22, 2024 03:30 PM AMBULATORY - MEDICINE [facility] Apr 27, 2024 02:45 PM AMBULATORY - SURGERY . [facility] May 01, 2024 11:00 AM AMBULATORY - NONE [facility] May 15, 2024 09:30 AM AMBULATORY - SURGERY [facility] May 20, 2024 03:30 PM AMBULATORY - NONE [facility] May 28, 2024 02:00 PM AMBULATORY - PSYCHIATRY [facility] Jun 03, 2024 11:30 AM AMBULATORY - SURGERY [facility] Active, Pending, and Scheduled Orders This section includes a listing of several types of active, pending, and scheduled orders, including clinic medications orders, diagnostic test orders, procedure orders and consult orders; where the start date of the order is 45 days before the date of the Encounter or 45 days after the date of theEncounter. The data comes from all [facility] facilities. Test Date/Time Test Type Test Details Facility Name Jan 18, 2024 04:36 AM Laboratory - Chemistry Order CBC BLOOD STAT WC ONCE [facility] January 23, 2024 12:00 AM Laboratory - Chemistry Order LIPID PANEL (STL) GREEN LI/HEP BLD/PLAS PLASMA SP [facility] January 23, 2024 12:00 AM Laboratory - Chemistry Order HGA1C BLOOD [facility] January 23, 2024 12:00 AM Laboratory - Chemistry Order COMPREHENSIVE METABOLIC PANEL GREEN LI/HEP BLD/PLAS PLASMA [facility] January 23, 2024 12:00 AM Laboratory - Chemistry Order VITAMIN D, 25-HYDROXY GOLD/RED SST SERUM SP [facility] January 23, 2024 12:00 AM Laboratory - Chemistry Order B12 GOLD/RED SST SERUM [facility] January 23, 2024 12:00 AM Laboratory - Chemistry Order TSH (MA-PB) GOLD/RED SST SERUM [facility] Mar 06, 2024 12:00 AM Laboratory - Chemistry Order CBC (DIFF&PLT) BLOOD [facility] Mar 06, 2024 12:00 AM Laboratory - Chemistry Order COMPREHENSIVE METABOLIC PANEL BLOOD PLASMA SP [facility] Mar 06, 2024 12:00 AM Laboratory - Chemistry Order URINALYSIS URINE SP [facility] Mar 06, 2024 12:00 AM Laboratory - Chemistry Order LIPID PANEL BLOOD PLASMA SP [facility] Mar 06, 2024 12:00 AM Laboratory - Chemistry Order TSH-G,LC,J,T BLOOD PLASMA SP [facility] Mar 06, 2024 12:00 AM Laboratory - Chemistry Order HEMOGLOBIN %A1C PROFILE BLOOD SP [facility] Mar 06, 2024 12:00 AM Laboratory - Chemistry Order MICROALBUMINURIA(IVONNE) URINE SP [facility] Lab Results: +/- 30 days of the encounter This section includes the Chemistry and Hematology Lab Results on record with NH for the patient. Radiology Reports and Pathology Reports are provided separately, in subsequent sections. Lab Results This section contains the Chemistry/Hematology Results that were resulted 30 days before or 30 daysafter the date of the Encounter. Date/Time Source Result Type Result - Unit Interpretation Reference Range Specimen Type Comment Mar 01, 2024 09:06 PM [facility] HGA1C BLOOD Specimen Type: BLOOD No comment entered. Ordering Provider: ROYA CARTAGENA Report Released Date/Time: Feb 24, 2024 04:42 PM Reporting Lab: [facility] [address] [facility] [address] Performing Lab: [facility] [address] [facility] [address] HGA1C 5.3 4.0-6.0 Mar 01, 2024 09:06 PM [facility] LIPID PANEL (STL) PLASMA Specimen Type: PLASM A Comment: No hemolysis noted. Ordering Provider: ROYA CARTAGENA Report Released Date/Time: Feb 24, 2024 04:42 PM Reporting Lab: [facility] [address] [facility] [address] Performing Lab: [place] [id number] [facility] [address] CHOLESTEROL 174 mg/dL 0-200 TRIGLYCERIDE 220 mg/dL H 0-150 CALCULATED LDL 98 mg/dL HDL(New) 32 mg/dL L >40 Mar 01, 2024 09:06 PM [facility] COMPREHENSIVE METABOLIC PANEL PLASMA Specimen Type: PLASMA Comment: No hemolysis noted. Ordering Provider: ROYA CARTAGENA Report Released Date/Time: Feb 24, 2024 04:42 PM Reporting Lab: [address] [address] Performing Lab: [address] [address] CREATININE 1.33 mg/dL H 0.7-1.3 UREA NITROGEN [...] 71.9 >60 Mar 01, 2024 09:06 PM [facility] URINALYSIS (STL-PB) URINE Specimen Type: URIN E No comment entered. Ordering Provider: ROYA CARTAGENA Report Released Date/Time: Feb 24, 2024 04:42 PM Reporting Lab: [address] [address] Performing Lab: [address] [address] URINE COLOR Light-Yellow Yellow U.BILIRUBIN Negative mg/dL [...] 1.025 1.005-1.029 Mar 01, 2024 09:06 PM [facility] CBC BLOOD Specimen Type: BLOOD No comment entered. Ordering Provider: ROYA CARTAGENA Report Released Date/Time: Feb 24, 2024 04:42 PM Reporting Lab: [facility] [address] [facility] [address] Performing Lab: [facility] [address] [facility] [address] WBC 7.7 10*3/uL 3.6-11.2 RBC 5.34 10*6/uL [...] and tobacco- related health factors from the NH facility where the Encounter took place. Current Smoking Status This section includes the most current smoking, or tobacco-related health factor, from the NH facility where the Encounter took place. Date/Time Current Smoking Status Comment Shameka martínez Jan 08, 2024 04:16 PM VA-TOBACCO FORMER USER [facility] Tobacco Use History This section includes a history of the smoking, or tobacco-related health factors, that were collected on or before the date of the Encounter. The data comes from the NH facility where the Encounter took place. Date/Time Smoking Status/Tobacco Use Comment F acility Jan 08, 2024 04:16 PM VA-TOBACCO QUIT 15 YRS OR MORE [facility] Dec 18, 2023 09:41 AM VA-TOBACCO FORMER USER [facility] Dec 18, 2023 09:41 AM NH-TOBACCO QUIT 1 TO < 5 YRS [facility] Advance Directives: All historical and current Section Date Range: From patient's date of to the date document was created. This section includes ALL of a patient's completed or amended [place] Advance and Rescinded Directives. The entries below indicate that a directive exists for the patient, but an actual copy is not included with this document. The data comes from all [facility]. Date Advance Directives Provider Source Aug 28, 2023 ADVANCE DIRECTIVE NO TIFICATION AND SCREENING SYLWIA SANTIAGO [facility] May 14, 2023 ADVANCE DIRECTIVE NO TIFICATION AND SCREENING SYLWIA SANTIAGO [facility] Radiology Reports: +/- 30 [...] the Encounter. The data comes from all [place] treatment facilities. Date/Time Radiology Report Provider Source Mar 25, 2024 07:[address] LUMBAR SPINE W/ O CONT: MERLE LAFLEUR [id number] -1990 M Exm Date: MAR 25, 2024@19:39 Req Phys: JESSICA PATTEN Loc: [facility] 3RD SHIFT (R Img Loc: [facility] Service: Unknown [facility] [address] [place] [address] (Case [id number] COMPLETE) CT LUMBAR SPINE W/O CONT (CT Detailed) CPT:45855 Reason for Study: eval for fx/dislocation Clinical History: Responsible Attending: DR JESSICA PATTEN Attending Contact Number: [id number] Resident Contact Number: FELL while roller blading. [...] 25, 2024 Date Verified: MAR 25, 2024 Director Of Patient Care E-Sig: Report: CT THORACIC SPINE W/O CONT, CT LUMBAR SPINE W/O CONT HISTORY: eval for fx/dislcoation COMPARISON: No priors available. TECHNIQUE: The study was protocoled and supervised at the local NH facility. 2807 images were subsequently received by the [place] National Teleradiology Program (NTP) for interpretation. Volumetric [...] fracture fragments. READING PHYSICIAN: Caio Rollins MD -[id number] 03/25/2024 18:30 PDT [facility] National Teleradiology Program [phone] (For Medical Practitioner Use Only) Attention Patients / Veterans: If you have questions or concerns about these test results, please contact your ordering provider or primary care team. Primary Interpreting Staff: RADIOLOGY,OUTSIDE SERVICE, Staff Physician / RADIOLOGY,OUTSIDE SERVICE [facility] Mar 25, 2024 07:[address] THORACIC SPINE W/O CONT: MERLE LAFLEUR [id number] -1990 M Exm Date: MAR 25, 2024@19:39 Req Phys: JESSICA PATTEN Loc: [facility] 3RD SHIFT (R Img Loc: [facility] Service: Unknown [facility], [facility] [address] [place] [address] (Case [id number] COMPLETE) CT THORACIC SPINE W/O CONT (CT Detailed) CPT:82095 Reason for Study: eval for fx/dislcoation Clinical History: Responsible Attending: dr jessica patten Attending Contact Number: [id number] Resident Contact Number: FELL while roller blading. [...] 25, 2024 Date Verified: MAR 25, 2024 Director Of Patient Care E-Sig: Report: CT THORACIC SPINE W/O CONT, CT LUMBAR SPINE W/O CONT HISTORY: eval for fx/dislcoation COMPARISON: No priors available. TECHNIQUE: The study was protocoled and supervised at the local NH facility. 2807 images were subsequently received by the [place] National Teleradiology Program (NTP) for interpretation. Volumetric [...] fracture fragments. READING PHYSICIAN: Caio Rollins MD -[id number] 03/25/2024 18:30 PDT [facility] H2020 Teleradiology Program [phone] (For Medical Practitioner Use Only) Attention Patients / Veterans: If you have questions or concerns about these test results, please contact your ordering provider or primary care team. Primary Interpreting Staff: RADIOLOGY,OUTSIDE SERVICE, Staff Physician / RADIOLOGY,OUTSIDE SERVICE [facility] Encounter Notes: All associated encounter notes This section contains the clinical notes associated to the Encounter. Date/Time Encounter Note(s) Provider Source Feb 24, 2024 04:39 PM OCCUPATIONAL MEDIC INE NOTE: LOCAL TITLE: EMPLOYEE HEALTH NOTE STANDARD TITLE: OCCUPATIONAL MEDICINE NOTE DATE OF NOTE: FEB 24, 2024@16:39 ENTRY DATE: FEB 24, 2024@16:39:10 AUTHOR: ROYA CARTAGENA COSIGNER: URGENCY: STATUS: COMPLETED You may not VIEW this COMPLETED EMPLOYEE HEALTH NOTE. ROYA CARTAGENA [facility]
--- OUTSIDE RECORDS SUMMARY | 2025-01-15 07:40 | XMS_ITS ---
OR ANESTHESIA PRE/POST-OP CONSULT [facility] Encounter Summary Created on: January 15, 2025 MERLE LAFLEUR : 1990 Sex: Male Author Name [facility] Organization [facility] Address [address] [place] [address] Care Team Providers Care Pediatric Surgeon Name Role Phone BROOKLYN ARAGON Primary Care [...] FOCUS FAMIL Y Oct 08, [phone] [id number] [phone] REISING,T YLER PATIENT CAREMARK ([id number])RX PRESCRIPT ION GEHA Oct 04, 2024 [id number] [phone] REISING,T YLER PATIENT CAREMARK FEP [id number] PRESCRIPT ION FEPRX Aug 16, 2019 [id number] [phone] REISING,T YLER PATIENT GEHA PREFERRED PROVIDER ORGANIZAT ION (PPO) GEHA STAND EVELYN Oct 04, 2024 [id number] REISING,T YLER PATIENT Selected Encounter This section includes the information on record at OR for the Encounter. Date/Time Encounter Type Encounter Description Reason Provider Source February 07, 2024 03:09 PM Outpatient Encounter ANESTHESIA PRE/POST-OP CONSULT ICD-10-CM F33.1 Major depressive disorder, recurrent, moderate HECTOR RILEY [facility] Encounter Template Text not used by OR Assessments - Encounter Diagnoses This section includes the primary and secondary diagnoses documented for the Encounter. Date/Time Primary/Secondary Diagnosis Diagnosis Name Provider Source February 07, 2024 03:20 PM PRIMARY Major depressive disorder, recurrent, moderate HECTOR RILEY [facility] February 07, 2024 03:20 PM SECONDARY Anxiety disorder, unspecified HECTOR RILEY [facility] February 07, 2024 03:20 PM SECONDARY Gastro-esophageal reflux disease without esophagitis HECTOR RILEY [facility] February 07, 2024 03:20 PM SECONDARY Low back pain, unspecified HECTOR RILEY [facility] February 07, 2024 03:20 PM SECONDARY Migraine, unsp, not intractable, without status migrainosus HECTOR RILEY [facility] February 07, 2024 03:20 PM SECONDARY Obstructive sleep apnea (adult) (pediatric) HECTOR RILEY [facility] February 07, 2024 03:20 PM SECONDARY Other cholelithiasis without obstruction HECTOR RILEY [facility] February 07, 2024 03:20 PM SECONDARY Personal history of traumatic brain injury HECTOR RILEY [facility] February 07, 2024 03:20 PM SECONDARY Unspecified abdominal hernia without obstruction or gangrene HECTOR RILEY [facility] Plan of Treatment: Future Appointments (+ 6 months) and Future Tests (+/- 45 days) The Plan of Treatment section includes future care activities for the patient from [facility] This section includes future appointments and future orders which are active, pending or scheduled. Future Appointments This section includes appointments that were scheduled to occur 6 months from the date of the Encounter, up to a maximum of 20 appointments. The data comes from all [facility]. Appointment Date/Time Appointment Type Appointme nt Facility Name Feb 27, 2024 01:00 PM AMBULATORY - MEDICINE [facility] Feb 27, 2024 03:00 PM AMBULATORY - PSYCHIATRY [facility] Feb 28, 2024 07:09 PM AMBULATORY - MEDICINE [facility] Mar 03, 2024 02:00 PM AMBULATORY - PSYCHIATRY [facility] Mar 04, 2024 11:00 AM AMBULATORY - MEDICINE [facility] Mar 13, 2024 11:00 AM AMBULATORY - PSYCHIATRY [facility] Mar 20, 2024 09:00 AM AMBULATORY - PSYCHIATRY [facility] Mar 25, 2024 04:00 PM AMBULATORY - PSYCHIATRY [facility] Mar 25, 2024 06:00 PM AMBULATORY - MEDICINE [facility] Apr 08, 2024 02:00 PM AMBULATORY - PSYCHIATRY [facility] Apr 16, 2024 03:06 AM AMBULATORY - MEDICINE [facility] Apr 16, 2024 08:30 AM AMBULATORY - SURGERY . [facility] Apr 22, 2024 02:00 PM AMBULATORY - PSYCHIATRY [facility] Apr 22, 2024 03:30 PM AMBULATORY - MEDICINE [facility] Apr 27, 2024 02:45 PM AMBULATORY - SURGERY [facility] May 01, 2024 11:00 AM AMBULATORY - NONE [facility] May 15, 2024 09:30 AM [facility] May 20, 2024 03:30 PM AMBULATORY - NONE [facility] May 28, 2024 02:00 PM AMBULATORY - PSYCHIATRY [facility] Jun 03, 2024 11:30 AM AMBULATORY - SURGERY [facility] Active, Pending, and Scheduled Orders This section includes a listing of several types of active, pending, and scheduled orders, including clinic medications orders, diagnostic test orders, procedure orders and consult orders; where the start date of the order is 45 days before the date of the Encounter or 45 days after the date of theEncounter. The data comes from all [facility] treatment [facility]. Test Date/Time Test Type Test Details Facility Name Jan 18, 2024 04:36 AM Laboratory - Chemistry Order CBC BLOOD STAT WC ONCE [facility] January 23, 2024 12:00 AM Laboratory - Chemistry Order HGA1C BLOOD SP [facility] January 23, 2024 12:00 AM Laboratory - Chemistry Order LIPID PANEL (STL) GREEN LI/HEP BLD/PLAS PLASMA SP [facility] January 23, 2024 12:00 AM Laboratory - Chemistry Order VITAMIN D, 25-HYDROXY GOLD/RED SST SERUM SP [facility] January 23, 2024 12:00 AM Laboratory - Chemistry Order B12 GOLD/RED SST SERUM [facility] January 23, 2024 12:00 AM Laboratory - Chemistry Order TSH (MA-PB) GOLD/RED SST SERUM [facility] January 23, 2024 12:00 AM Laboratory - Chemistry Order COMPREHENSIVE METABOLIC PANEL GREEN LI/HEP BLD/PLAS PLASMA [facility] Mar 06, 2024 12:00 AM Laboratory - Chemistry Order CBC (DIFF&PLT) BLOOD [facility] Mar 06, 2024 12:00 AM Laboratory - Chemistry Order COMPREHENSIVE METABOLIC PANEL BLOOD PLASMA [facility] Mar 06, 2024 12:00 AM Laboratory - Chemistry Order URINALYSIS URINE [facility] Mar 06, 2024 12:00 AM Laboratory - Chemistry Order LIPID PANEL BLOOD PLASMA [facility] Mar 06, 2024 12:00 AM Laboratory - Chemistry Order TSH-G,LC,J,T BLOOD PLASMA [facility] Mar 06, 2024 12:00 AM Laboratory - Chemistry Order HEMOGLOBIN %A1C PROFILE BLOOD SP [facility] Mar 06, 2024 12:00 AM Laboratory - Chemistry Order MICROALBUMINURIA(IVONNE) URINE SP [facility] Lab Results: +/- 30 days of the [...] Type Comment Mar 01, 2024 09:06 PM [facility] HGA1C BLOOD Specimen Type: BLOOD No comment entered. Ordering Provider: ROYA CARTAGENA Report Released Date/Time: Feb 24, 2024 04:42 PM Reporting Lab: [address] [address] Performing Lab: [address] [address] HGA1C 5.3 4.0-6.0 Mar 01, 2024 09:06 PM [facility] LIPID PANEL (STL) PLASMA Specimen Type: PLASM A Comment: No hemolysis noted. Ordering Provider: ROYA CARTAGENA Report Released Date/Time: Feb 24, 2024 04:42 PM Reporting Lab: [address] [address] Performing Lab: [address] [address] CHOLESTEROL 174 mg/dL 0-200 TRIGLYCERIDE 220 mg/dL H 0-150 CALCULATED LDL 98 mg/dL HDL(New) 32 mg/dL L >40 Mar 01, 2024 09:06 PM [facility] COMPREHENSIVE METABOLIC PANEL PLASMA Specimen Type: PLASMA Comment: No hemolysis noted. Ordering Provider: ROYA CARTAGENA Report Released Date/Time: Feb 24, 2024 04:42 PM Reporting Lab: [address] [address] Performing Lab: [address] [address] CREATININE 1.33 mg/dL H 0.7-1.3 UREA NITROGEN [...] Mar 01, 2024 09:[address] [facility] CBC BLOOD Specimen Type: BLOOD No comment entered. Ordering Provider: ROYA CARTAGENA Report Released Date/Time: Feb 24, 2024 04:42 PM Reporting Lab: [facility] [address] [address] Performing Lab: [facility] [address] [place] [phone] WBC 7.7 10*3/uL 3.6-11.2 RBC 5.34 10*6/uL [...] 0.60 BASOPHILS, ABSOLUTE 0.07 10*3/uL 0.00-0. 20 Mar 01, 2024 09:06 PM [facility] URINALYSIS (STL-PB) URINE Specimen Type: URIN E No comment entered. Ordering Provider: ROYA CARTAGENA Report Released Date/Time: Feb 24, 2024 04:42 PM Reporting Lab: [facility] [address] [facility] [address] [facility] [address] Performing Lab: [address] [address] URINE COLOR Light-Yellow Yellow U.BILIRUBIN Negative mg/dL [...] mg/dL Negative-Tr alexander URN.SPECIFIC GRAVITY 1.025 1.005-1.029 Jan 18, 2024 04:22 AM [facility] COVID-19 DIAGNOSTIC (FLU/RSV)(STL) NASOPHARYNX Spec imen Type: [...] Jan 18, 2024 04:23 AM Reporting Lab: [facility] [address] [address] Performing Lab: [place] [id number] [address] INFLUENZA A Negative Negative INFLUENZA B Negative Negative COVID-19 (STL-PB) Not Detected Not Detec braden RSV (Cepheid) NEGATIVE Negative Jan 18, 2024 04:[address] [facility] CBC BLOOD Specimen Type: BLOOD No comment entered. Ordering Provider: ADINA WALTON Report Released Date/Time: Jan 18, 2024 04:23 AM Reporting Lab: [address] [address] Performing Lab: [facility] [address] [facility] [address] WBC 8.4 10*3/uL 3.6-11.2 RBC 5.61 10*6/uL [...] 0.00-0. 20 Jan 18, 2024 04:22 AM [facility] LIPASE PLASMA Specimen Type: PLASM A Comment: *COMPREHENSIVE METABOLIC PANEL Not Performed: Jan 18, 2024@05:09 by *TROUBLE LOCATOR TEST DESK Reason: DUPLICATE SPECIMEN ORDER. SEE ORDER [id number] Aspartate Transaminase result may show positive bias due to hemolysis. K result canceled due to hemolysis. Specimen moderately hemolyzed. Ordering Provider: ADINA WALTON Report Released Date/Time: Jan 18, 2024 04:36 AM Reporting Lab: [facility] [address] [facility] [address] Performing Lab: [address] [address] LIPASE 34 U/L 8-78 Jan 18, 2024 04:22 AM [facility] COMPREHENSIVE METABOLIC PANEL PLASMA Specimen Type: PLASMA Comment: Aspartate Transaminase result may show positive bias due to hemolysis. K result canceled due to hemolysis. Specimen moderately hemolyzed. K Cancelled due to moderate hemolysis. NOTIFIED VIRGEN OLIVAS RN @ [phone] ON 01/18/24 BY [facility] Ordering Provider: ADINA WALTON Report Released Date/Time: Jan 18, 2024 04:23 AM Reporting Lab: [facility] [address] [address] Performing Lab: [facility] [address] [address] CREATININE 1.43 mg/dL H 0.7-1.3 UREA NITROGEN [...] 65.9 >60 Jan 18, 2024 04:22 AM [facility] GGT GAMMA-GT PLASMA Specimen Type: PLASM A Comment: *COMPREHENSIVE METABOLIC PANEL Not Performed: Jan 18, 2024@05:09 by *TROUBLE LOCATOR TEST DESK Reason: DUPLICATE SPECIMEN ORDER. SEE ORDER [id number] Aspartate Transaminase result may show positive bias due to hemolysis. K result canceled due to hemolysis. Specimen moderately hemolyzed. Ordering Provider: ADINA WALTON Report Released Date/Time: Jan 18, 2024 04:36 AM Reporting Lab: [facility] [address] [address] Performing Lab: [facility] [address] [place] [phone] GGT GAMMA-GT 99 [IU]/L H 12-64 Vital Signs: All taken on the encounter date This section contains inpatient and outpatient Vital Signs collected on the date of the Encounter. Date/Time Temperature Pulse Blood Pressure Respiratory Rate SP02 Pain Height Weight Body Mass Index Source February 07, 2024 07:56 AM 97.3 76 113/79 18 96 2 73 249.8 33 [facility] Social History: [...] 08, 2024 04:16 PM VA-TOBACCO FORMER USER [facility] Tobacco Use History This section includes a history of the smoking, or tobacco-related health factors, that were collected on or before the date of the Encounter. The data comes from the OR facility where the Encounter took place. Date/Time Smoking Status/Tobacco Use Comment F accammy Jan 08, 2024 04:16 PM VA-TOBACCO QUIT 15 YRS OR MORE [facility] Dec 18, 2023 09:41 AM VA-TOBACCO FORMER USER [facility] Dec 18, 2023 09:41 AM VA-TOBACCO QUIT 1 TO < 5 YRS [facility] Advance Directives: All historical and current Section Date Range: From patient's date of to the date document was created. This section includes ALL of a patient's completed or amended OR Advance and Rescinded Directives. The entries below indicate that a directive exists for the patient, but an actual copy is not included with this document. The data comes from all [facility]. Date Advance Directives Provider Source Aug 28, 2023 ADVANCE DIRECTIVE NO TIFICATION AND SCREENING SYLWIA SANTIAGO [facility] May 14, 2023 ADVANCE DIRECTIVE NO TIFICATION AND SCREENING SYLWIA SANTIAGO [facility] Encounter Notes: All associated encounter notes This section contains the clinical notes associated to the Encounter. Date/Time Encounter Note(s) Provider Source Mar 17, 2024 09:37 AM ADDENDUM: LOCAL TITLE: Addendum STANDARD TITLE: ADDENDUM DATE OF NOTE: MAR 17, 2024@09:37:04 ENTRY DATE: MAR 17, 2024@09:37:05 AUTHOR: MARCELLE BRANNON COSIGNER: URGENCY: STATUS: COMPLETED Surgery postponed for 03/19/24 due to patient family emergency. We will get back to patient within a few days with new surgery date. /cydney/ Marcelle Brannon PA-C General Surgery Physician Cashier Wrapper Signed: 03/17/2024 09:37 Receipt Acknowledged By: 03/17/2024 10:16 /cydney/ MITCHEL RILEY PA-C Physician Cashier Wrapper, Anesthesiology --- Original Document --- 02/07/24 E-CONSULT ANESTHESIA STL: MERLE LAFLEUR is a 33 year old MALE The reason for eConsult: Pre-operative evaluation I have reviewed pertinent documentation in the electronic medical record for this patient. The recommendations/findings offered are the result of information from the requesting provider and a CHART REVIEW ONLY. The 's chart was reviewed. The patient is scheduled for lap ying on 03/19/24. VITALS Age: 33 Weight: 249.8 lb [113.31 kg] (02/07/2024 07:56) Height: 73 in [185.4 cm] (02/07/2024 07:56) BMI: 33.0 Blood pressure: 113/79 (02/07/2024 07:56) Pulse: 76 (02/07/2024 07:56) Temperature: 97.3 F [36.3 C] (02/07/2024 07:56) Respiration: 18 (02/07/2024 07:56) SpO2: 96% (02/07/2024 07:56) Pain: 2 (02/07/2024 07:56) ALLERGIES Patient has answered NKA MEDICATIONS Active Outpatient Medications (including Supplies): Active Outpatient Medications Status 1) BUPROPION HCL 150MG 24HR SA TAB TAKE ONE TABLET BY ACTIVE MOUTH EVERY MORNING FOR DEPRESSION SWALLOW WHOLE - DO NOT CRUSH OR CHEW. 2) CHLORHEXIDINE GLUCONATE 4% TOP LIQUID APPLY MODERATE ACTIVE (S) AMOUNT TO AFFECTED AREA(S) DIRECTED FOR SKIN DISINFECTION (TOPICAL USE ONLY) AVOID CONTACT WITH EYES. WASH BODY WITH SOAP IN THE SHOWER FROM NECK DOWN (NOT ON FACE OR PRIVATES) THE NIGHT BEFORE SURGERY AND THE MORNING OF SURGERY. 3) OMEPRAZOLE 40MG EC CAP TAKE ONE CAPSULE BY MOUTH ACTIVE EVERY MORNING BEFORE A MEAL FOR ACID REFLUX. TAKE 30 MINUTES PRIOR TO FOOD. 4) ONDANSETRON 4MG ORAL DISINTEGRATING TAB TAKE ONE ACTIVE TABLET UNDER THE TONGUE EVERY EIGHT(8) HOURS NEEDED FOR NAUSEA/VOMITING LABS WBC 8.4 10*3/uL 01/18/2024 04:22 RBC 5.61 [...] GRANS, AUTO ABS 0.04 10*3/uL 03/02/2022 12:18 No INR EO data found No PTT EO data found SODIUM 143 mEq/L 01/18/2024 04:22 POTASSIUM 3.9 [...] 04:22 EGFR (CKD-EPI 2020) 65.9 01/18/2024 04:22 HGA1C 5.4 % 01/01/2023 10:25 AMPHET/METHAMPHETAMINE Negative ng/mL 04/18/2022 12:22 BENZODIAZEPINES (STL) Negative ng/mL 04/18/2022 12:22 CANNABINOIDS Negative ng/mL 04/18/2022 12:22 COCAINE METABOLITES Negative ng/mL 04/18/2022 12:22 OPIATES Negative ng/mL 04/18/2022 12:22 No HIV SCREENING EO data found [facility] Hep C tests in last five years. HEP C Ab HCV Ab (STL) Nonreactive S/CO (04/18/22 12:21) DIAGNOSTICS EKG 01/01/23: NSR, sinus arrhythmia CXR: Impression for CHEST PORTABLE, 03/11/23, case 168 Normal AP chest. READING PHYSICIAN: Dawson Gonzales -[phone] 03/11/2023 18:41 CDT [facility] National Teleradiology Program [phone] (For Medical Practitioner Use Only) Attention Patients / Veterans: If you have questions or concerns about these test results, please contact your ordering provider or primary care team. PFT: Echocardiogram: Stress test: PROBLEM LIST 1) Depressive disorder 2) Sleep disorder 3) [...] rhinitis 18) Vitamin D deficiency 19) Anxiety REVIEW OF SYSTEMS/PAST MEDICAL HISTORY RESPIRATORY for: + Sleep apnea, using CPAP - Asthma - COPD CARDIAC for: - Hypertension - Hyperlipidemia - Myocardial infarction - Coronary artery disease - Heart failure - Valvular disease - Atrial fibrillation/flutter Per PCP #Strong fam hx of cardiac disease #chest pain-- chest pain may be and is likely GERD related but out of abundance of caution and give fam hx and at patient request, stess test ordered PSYCH/CENTRAL NERVOUS for: + Depression + Anxiety - Post-traumatic stress disorder - Cerebral vascular accident - Seizures + migraines + hx TBI ENDOCRINE for: - Diabetes - Hypothyroid RENAL for: - Chronic kidney disease - Nephrolithiasis GI for: + GERD + Hiatal hernia + symptomatic cholelithiasis - Liver disease - GI bleed VASCULAR/HEMATOLOGY/ONCOLOG Y for: - Anemia - Thrombocytopenia - Bleeding disorders MUSCULOSKELETAL/SKIN/PERIPH ERAL NERVOUS for: - Obesity - Arthritis/Degenerative joint disease - Rheumatoid arthritis - Neuropathy + back pain /REPRODUCTIVE for: - Prostate hypertrophy BETA BLOCKERS: none RECOMMENDATIONS/PLAN: 1. Additional labs/imaging/consults needed for anesthesia team: EKG Stress test 02/19/24 as ordered per PCP 2. If tests are within acceptable limits, the patient may proceed as planned and will be reassessed by Anesthesia AM of surgery. 3. NPO after midnight except for small sips of water with meds. 4. Unless directed by procedural team, take morning medications with a sip of water. 5. If patient uses CPAP, they should bring machine with them. 16 minutes to 30 minutes spent reviewing patient's medical records. /da RILEY PA-C Physician Cashier Wrapper, Anesthesiology Signed: 02/07/2024 15:19 Receipt Acknowledged By: 02/10/2024 12:52 /da Brannon PA-C General Surgery Physician Cashier Wrapper 02/20/2024 ADDENDUM STATUS: COMPLETED It appears the patient has cancelled his stress test. He should have this done prior to surgery. EKG still needs to be completed as well. /da RILEY PA-C Physician Cashier Wrapper, Anesthesiology Signed: 02/20/2024 13:02 Receipt Acknowledged By: 02/21/2024 14:52 /da Brannon PA-C General Surgery Physician Cashier Wrapper 02/21/2024 ADDENDUM STATUS: COMPLETED I called patient to remind him to get EKG as soon as possible and that he will also need to reschedule his cardiac stress test before surgery. I reached out to cardiology paint tester to see assist him getting it rescheduled. /da Brannon PA-C General Surgery Physician Cashier Wrapper Signed: 02/21/2024 14:53 02/21/2024 ADDENDUM STATUS: COMPLETED Stress test rescheduled for 02/26 at 1pm. /da Brannon PA-C General Surgery Physician Cashier Wrapper Signed: 02/21/2024 15:19 02/28/2024 ADDENDUM STATUS: COMPLETED SUMMARY EXERCISE: 6 Salty TREADMILL Yoandy Protocol used 1. Peak Mets: 13.3 2. Peak calculated VO2: 47 ml/Kg/min 3. % VO2 of average for age and gender: 116% 4. Peak Heart Rate: 184 5. % of predicted Peak Heart Rate: 98% 6. Time on the treadmill: 10 min 5 seconds 7. HR in recovery: - 1 Min: 157 - 2 Min: 131 --- 1. Exercise capacity: Good 2. DTS = 12 consistent with low risk of future CV events. 3. BP response: Normal response Baseline: 105/84 Peak: 173/65 CONCLUSIONS - Maximal exercise ECG stress test. - Non-ischemic ECG changes at achieved workload. - Central chest discomfort described as burning during stress test. Resolved with rest. - Normal heart rate deceleration during recovery. - Normal BP at baseline with normal BP response to exercise. - Good functional capacity. - Stress ECG portion results discussed with the patient. - Patient was informed that a negative/non-ischemic ECG stress test does not exclude presence of coronary atherosclerosis, particularly non-obstructive coronary stenoses. - Furthermore, the significance of non-obstructive coronary stenoses/plaques, and the potential consequences of vulnerable atherosclerotic plaques prone to rupture, likely giving rise to coronary thrombotic occlusion and ACS/GA were elaborated. - Patient's questions and concerns addressed. In view of strong family H/O CAD, exercise-induced CP, and elevated LDL-C(130 mg/dl), coronary caclium score was ordered to be followed by cardiac CATH if appropriate; Further more this patient benefit from statin if tolerted because of its pleotropic properties (coronary plaque-stabilising effects of statin of statins). Will clarify with Cardiology if pt needs above testing prior to lap ying scheduled for 19 March. /cydney/ JUMANA TRIPP Physician Cashier Wrapper, Anesthesiology Signed: 02/28/2024 09:15 02/28/2024 ADDENDUM STATUS: COMPLETED cardiology e-consult: IMPRESSION/PLAN is a 33 yo with a past medical hx of GERD, MARY, Migraines, Anxiety, TBI, family hx of CAD. He is scheduled for lap ying and anesthesia requests preop risk assessment. On 02/28/2024, underwent a stress test evaluation that was negative for ischemia. RCRI is class II 6% 30 day risk of MACE. Unless patient has any progression of symptoms, arrythmia or ischemia, as per ACC & AHA guidelines does not need any further ischemic cardiac evaluation prior to proceeding with planned surgery. 31+ minutes reviewing patient's medical records /cydney/ DICK Owens Nurse Practitioner Signed: 02/28/2024 15:18 /cydney/ JUMANA TRIPP Physician Cashier Wrapper, Anesthesiology Signed: 02/28/2024 15:28 MARCELLE BRANNON [facility] February 20, 2024 01:01 PM ADDENDUM: LOCAL TITLE: Addendum STANDARD TITLE: ADDENDUM DATE OF NOTE: FEBRUARY 20, 2024@13:01:38 ENTRY DATE: FEBRUARY 20, 2024@13:01:38 AUTHOR: MITCHEL RILEY EXP COSIGNER: URGENCY: STATUS: COMPLETED It appears the patient has cancelled his stress test. He should have this done prior to surgery. EKG still needs to be completed as well. /cydney/ MITCHEL RILEY PA-C Physician Cashier Wrapper, Anesthesiology Signed: 02/20/2024 13:02 Receipt Acknowledged By: 02/21/2024 14:52 /cydney/ Marcelle Brannon PA-C General Surgery Physician Cashier Wrapper --- Original Document --- 02/07/24 E-CONSULT ANESTHESIA STL: MERLE LAFLEUR is a 33 year old MALE The reason for eConsult: Pre-operative evaluation I have reviewed pertinent documentation in the electronic medical record for this patient. The recommendations/findings offered are the result of information from the requesting provider and a CHART REVIEW ONLY. The 's chart was reviewed. The patient is scheduled for lap ying on 03/19/24. VITALS Age: 33 Weight: 249.8 lb [113.31 kg] (02/07/2024 07:56) Height: 73 in [185.4 cm] (02/07/2024 07:56) BMI: 33.0 Blood pressure: 113/79 (02/07/2024 07:56) Pulse: 76 (02/07/2024 07:56) Temperature: 97.3 F [36.3 C] (02/07/2024 07:56) Respiration: 18 (02/07/2024 07:56) SpO2: 96% (02/07/2024 07:56) Pain: 2 (02/07/2024 07:56) ALLERGIES Patient has answered NKA MEDICATIONS Active Outpatient Medications (including Supplies): Active Outpatient Medications Status 1) BUPROPION HCL 150MG 24HR SA TAB TAKE ONE TABLET BY ACTIVE MOUTH EVERY MORNING FOR DEPRESSION SWALLOW WHOLE - DO NOT CRUSH OR CHEW. 2) CHLORHEXIDINE GLUCONATE 4% TOP LIQUID APPLY MODERATE ACTIVE (S) AMOUNT TO AFFECTED AREA(S) DIRECTED FOR SKIN DISINFECTION (TOPICAL USE ONLY) AVOID CONTACT WITH EYES. WASH BODY WITH SOAP IN THE SHOWER FROM NECK DOWN (NOT ON FACE OR PRIVATES) THE NIGHT BEFORE SURGERY AND THE MORNING OF SURGERY. 3) OMEPRAZOLE 40MG EC CAP TAKE ONE CAPSULE BY MOUTH ACTIVE EVERY MORNING BEFORE A MEAL FOR ACID REFLUX. TAKE 30 MINUTES PRIOR TO FOOD. 4) ONDANSETRON 4MG ORAL DISINTEGRATING TAB TAKE ONE ACTIVE TABLET UNDER THE TONGUE EVERY EIGHT(8) HOURS NEEDED FOR NAUSEA/VOMITING LABS WBC 8.4 10*3/uL 01/18/2024 04:22 RBC 5.61 [...] GRANS, AUTO ABS 0.04 10*3/uL 03/02/2022 12:18 No INR EO data found No PTT EO data found SODIUM 143 mEq/L 01/18/2024 04:22 POTASSIUM 3.9 [...] 04:22 EGFR (CKD-EPI 2020) 65.9 01/18/2024 04:22 HGA1C 5.4 % 01/01/2023 10:25 AMPHET/METHAMPHETAMINE Negative ng/mL 04/18/2022 12:22 BENZODIAZEPINES ([facility]) Negative ng/mL 04/18/2022 12:22 CANNABINOIDS Negative ng/mL 04/18/2022 12:22 COCAINE METABOLITES Negative ng/mL 04/18/2022 12:22 OPIATES Negative ng/mL 04/18/2022 12:22 No HIV SCREENING EO data found [facility] Hep C tests in last five years. HEP C Ab HCV Ab ([facility]) Nonreactive S/CO (04/18/22 12:21) DIAGNOSTICS EKG 01/01/23: NSR, sinus arrhythmia CXR: Impression for CHEST PORTABLE, 03/11/23, case 168 Normal AP chest. READING PHYSICIAN: Dawson Gonzales -[id number] 03/11/2023 18:41 CDT [facility] [phone] (For Medical Practitioner Use Only) Attention Patients / Veterans: If you have questions or concerns about these test results, please contact your ordering provider or primary care team. PFT: Echocardiogram: Stress test: PROBLEM LIST 1) Depressive disorder 2) Sleep disorder 3) [...] rhinitis 18) Vitamin D deficiency 19) Anxiety REVIEW OF SYSTEMS/PAST MEDICAL HISTORY RESPIRATORY for: + Sleep apnea, using CPAP - Asthma - COPD CARDIAC for: - Hypertension - Hyperlipidemia - Myocardial infarction - Coronary artery disease - Heart failure - Valvular disease - Atrial fibrillation/flutter Per PCP #Strong fam hx of cardiac disease #chest pain-- chest pain may be and is likely GERD related but out of abundance of caution and give fam hx and at patient request, stess test ordered PSYCH/CENTRAL NERVOUS for: + Depression + Anxiety - Post-traumatic stress disorder - Cerebral vascular accident - Seizures + migraines + hx TBI ENDOCRINE for: - Diabetes - Hypothyroid RENAL for: - Chronic kidney disease - Nephrolithiasis GI for: + GERD + Hiatal hernia + symptomatic cholelithiasis - Liver disease - GI bleed VASCULAR/HEMATOLOGY/ONCOLOG Y for: - Anemia - Thrombocytopenia - Bleeding disorders MUSCULOSKELETAL/SKIN/PERIPH ERAL NERVOUS for: - Obesity - Arthritis/Degenerative joint disease - Rheumatoid arthritis - Neuropathy + back pain /REPRODUCTIVE for: - Prostate hypertrophy BETA BLOCKERS: none RECOMMENDATIONS/PLAN: 1. Additional labs/imaging/consults needed for anesthesia team: EKG Stress test 02/19/24 as ordered per PCP 2. If tests are within acceptable limits, the patient may proceed as planned and will be reassessed by Anesthesia AM of surgery. 3. NPO after midnight except for small sips of water with meds. 4. Unless directed by procedural team, take morning medications with a sip of water. 5. If patient uses CPAP, they should bring machine with them. 16 minutes to 30 minutes spent reviewing patient's medical records. /cydney/ MITCHEL RILEY PA-C Physician Cashier Wrapper, Anesthesiology Signed: 02/07/2024 15:19 Receipt Acknowledged By: 02/10/2024 12:52 /cydney/ Marcelle Brannon PA-C General Surgery Physician Cashier Wrapper 02/21/2024 ADDENDUM STATUS: UNSIGNED You may not VIEW this UNSIGNED Addendum. MITCHEL RILEY [facility] February 07, 2024 03:09 PM CONSULT: LOCAL TITLE: E-CONSULT ANESTHESIA [facility] STANDARD TITLE: CONSULT DATE OF NOTE: FEBRUARY 07, 2024@15:09 ENTRY DATE: FEBRUARY 07, 2024@15:09:34 AUTHOR: MICTHEL RILEY EXP COSIGNER: URGENCY: STATUS: COMPLETED E-CONSULT ANESTHESIA [facility] Has ADDENDA MERLE LAFLEUR is a 33 year old MALE The reason for eConsult: Pre-operative evaluation I have reviewed pertinent documentation in the electronic medical record for this patient. The recommendations/findings offered are the result of information from the requesting provider and a CHART REVIEW ONLY. The 's chart was reviewed. The patient is scheduled for lap ying on 03/19/24. VITALS Age: 33 Weight: 249.8 lb [113.31 kg] (02/07/2024 07:56) Height: 73 in [185.4 cm] (02/07/2024 07:56) BMI: 33.0 Blood pressure: 113/79 (02/07/2024 07:56) Pulse: 76 (02/07/2024 07:56) Temperature: 97.3 F [36.3 C] (02/07/2024 07:56) Respiration: 18 (02/07/2024 07:56) SpO2: 96% (02/07/2024 07:56) Pain: 2 (02/07/2024 07:56) ALLERGIES Patient has answered NKA MEDICATIONS Active Outpatient Medications (including Supplies): Active Outpatient Medications Status 1) BUPROPION HCL 150MG 24HR SA TAB TAKE ONE TABLET BY ACTIVE MOUTH EVERY MORNING FOR DEPRESSION SWALLOW WHOLE - DO NOT CRUSH OR CHEW. 2) CHLORHEXIDINE GLUCONATE 4% TOP LIQUID APPLY MODERATE ACTIVE (S) AMOUNT TO AFFECTED AREA(S) DIRECTED FOR SKIN DISINFECTION (TOPICAL USE ONLY) AVOID CONTACT WITH EYES. WASH BODY WITH SOAP IN THE SHOWER FROM NECK DOWN (NOT ON FACE OR PRIVATES) THE NIGHT BEFORE SURGERY AND THE MORNING OF SURGERY. 3) OMEPRAZOLE 40MG EC CAP TAKE ONE CAPSULE BY MOUTH ACTIVE EVERY MORNING BEFORE A MEAL FOR ACID REFLUX. TAKE 30 MINUTES PRIOR TO FOOD. 4) ONDANSETRON 4MG ORAL DISINTEGRATING TAB TAKE ONE ACTIVE TABLET UNDER THE TONGUE EVERY EIGHT(8) HOURS NEEDED FOR NAUSEA/VOMITING LABS WBC 8.4 10*3/uL 01/18/2024 04:22 RBC 5.61 [...] GRANS, AUTO ABS 0.04 10*3/uL 03/02/2022 12:18 No INR EO data found No PTT EO data found SODIUM 143 mEq/L 01/18/2024 04:22 POTASSIUM 3.9 [...] 04:22 EGFR (CKD-EPI 2020) 65.9 01/18/2024 04:22 HGA1C 5.4 % 01/01/2023 10:25 AMPHET/METHAMPHETAMINE Negative ng/mL 04/18/2022 12:22 BENZODIAZEPINES (STL) Negative ng/mL 04/18/2022 12:22 CANNABINOIDS Negative ng/mL 04/18/2022 12:22 COCAINE METABOLITES Negative ng/mL 04/18/2022 12:22 OPIATES Negative ng/mL 04/18/2022 12:22 No HIV SCREENING EO data found [facility] Hep C tests in last five years. HEP C Ab HCV Ab ([facility]) Nonreactive S/CO (04/18/22 12:21) DIAGNOSTICS EKG 01/01/23: NSR, sinus arrhythmia CXR: Impression for CHEST PORTABLE, 03/11/23, case 168 Normal AP chest. READING PHYSICIAN: Dawson Gonzales -[id number] 03/11/2023 18:41 CDT [facility] [phone] (For Medical Practitioner Use Only) Attention Patients / Veterans: If you have questions or concerns about these test results, please contact your ordering provider or primary care team. PFT: Echocardiogram: Stress test: PROBLEM LIST 1) Depressive disorder 2) Sleep disorder 3) [...] rhinitis 18) Vitamin D deficiency 19) Anxiety REVIEW OF SYSTEMS/PAST MEDICAL HISTORY RESPIRATORY for: + Sleep apnea, using CPAP - Asthma - COPD CARDIAC for: - Hypertension - Hyperlipidemia - Myocardial infarction - Coronary artery disease - Heart failure - Valvular disease - Atrial fibrillation/flutter Per PCP #Strong fam hx of cardiac disease #chest pain-- chest pain may be and is likely GERD related but out of abundance of caution and give fam hx and at patient request, stess test ordered PSYCH/CENTRAL NERVOUS for: + Depression + Anxiety - Post-traumatic stress disorder - Cerebral vascular accident - Seizures + migraines + hx TBI ENDOCRINE for: - Diabetes - Hypothyroid RENAL for: - Chronic kidney disease - Nephrolithiasis GI for: + GERD + Hiatal hernia + symptomatic cholelithiasis - Liver disease - GI bleed VASCULAR/HEMATOLOGY/ONCOLOG Y for: - Anemia - Thrombocytopenia - Bleeding disorders MUSCULOSKELETAL/SKIN/PERIPH ERAL NERVOUS for: - Obesity - Arthritis/Degenerative joint disease - Rheumatoid arthritis - Neuropathy + back pain /REPRODUCTIVE for: - Prostate hypertrophy BETA BLOCKERS: none RECOMMENDATIONS/PLAN: 1. Additional labs/imaging/consults needed for anesthesia team: EKG Stress test 02/19/24 as ordered per PCP 2. If tests are within acceptable limits, the patient may proceed as planned and will be reassessed by Anesthesia AM of surgery. 3. NPO after midnight except for small sips of water with meds. 4. Unless directed by procedural team, take morning medications with a sip of water. 5. If patient uses CPAP, they should bring machine with them. 16 minutes to 30 minutes spent reviewing patient's medical records. /cydney/ MITCHEL RILEY PA-C Physician Cashier Wrapper, Anesthesiology Signed: 02/07/2024 15:19 Receipt Acknowledged By: 02/10/2024 12:52 /cydney/ Marcelle Brannon PA-C General Surgery Physician Cashier Wrapper 02/20/2024 ADDENDUM STATUS: COMPLETED It appears the patient has cancelled his stress test. He should have this done prior to surgery. EKG still needs to be completed as well. /da RILEY PA-C Physician Cashier Wrapper, Anesthesiology Signed: 02/20/2024 13:02 Receipt Acknowledged By: 02/21/2024 14:52 /da Brannon PA-C General Surgery Physician Cashier Wrapper 02/21/2024 ADDENDUM STATUS: COMPLETED I called patient to remind him to get EKG as soon as possible and that he will also need to reschedule his cardiac stress test before surgery. I reached out to cardiology paint tester to see assist him getting it rescheduled. /da Brannon PA-C General Surgery Physician Cashier Wrapper Signed: 02/21/2024 14:53 02/21/2024 ADDENDUM STATUS: COMPLETED Stress test rescheduled for 02/26 at 1pm. /da Brannon PA-C General Surgery Physician Cashier Wrapper Signed: 02/21/2024 15:19 02/28/2024 ADDENDUM STATUS: COMPLETED SUMMARY EXERCISE: 6 Salty TREADMILL [place] Protocol used 1. Peak Mets: 13.3 2. Peak calculated VO2: 47 ml/Kg/min 3. % VO2 of average for age and gender: 116% 4. Peak Heart Rate: 184 5. % of predicted Peak Heart Rate: 98% 6. Time on the treadmill: 10 min 5 seconds 7. HR in recovery: - 1 Min: 157 - 2 Min: 131 --- 1. Exercise capacity: Good 2. DTS = 12 consistent with low risk of future CV events. 3. BP response: Normal response Baseline: 105/84 Peak: 173/65 CONCLUSIONS - Maximal exercise ECG stress test. - Non-ischemic ECG changes at achieved workload. - Central chest discomfort described as burning during stress test. Resolved with rest. - Normal heart rate deceleration during recovery. - Normal BP at baseline with normal BP response to exercise. - Good functional capacity. - Stress ECG portion results discussed with the patient. - Patient was informed that a negative/non-ischemic ECG stress test does not exclude presence of coronary atherosclerosis, particularly non-obstructive coronary stenoses. - Furthermore, the significance of non-obstructive coronary stenoses/plaques, and the potential consequences of vulnerable atherosclerotic plaques prone to rupture, likely giving rise to coronary thrombotic occlusion and ACS/GA were elaborated. - Patient's questions and concerns addressed. In view of strong family H/O CAD, exercise-induced CP, and elevated LDL-C(130 mg/dl), coronary caclium score was ordered to be followed by cardiac CATH if appropriate; Further more this patient benefit from statin if tolerted because of its pleotropic properties (coronary plaque-stabilising effects of statin of statins). Will clarify with Cardiology if pt needs above testing prior to lap ying scheduled for 19 March. /cydney/ JUMANA ADAM PAC Physician Cashier Wrapper, Anesthesiology Signed: 02/28/2024 09:15 02/28/2024 ADDENDUM STATUS: COMPLETED cardiology e-consult: IMPRESSION/PLAN [place] is a 33 yo with a past medical hx of GERD, MARY, Migraines, Anxiety, TBI, family hx of CAD. He is scheduled for lap ying and anesthesia requests preop risk assessment. On 02/28/2024, underwent a stress test evaluation that was negative for ischemia. RCRI is class II 6% 30 day risk of MACE. Unless patient has any progression of symptoms, arrythmia or ischemia, as per ACC & AHA guidelines does not need any further ischemic cardiac evaluation prior to proceeding with planned surgery. 31+ minutes reviewing patient's medical records /cydney/ DICK Owens Nurse Practitioner Signed: 02/28/2024 15:18 /cydney/ JUMANA ADAM PAC Physician Cashier Wrapper, Anesthesiology Signed: 02/28/2024 15:28 03/17/2024 ADDENDUM STATUS: COMPLETED Surgery postponed for 03/19/24 due to patient family emergency. We will get back to patient within a few days with new surgery date. /cydney/ Marcelle Brannon PA-C General Surgery Physician Cashier Wrapper Signed: 03/17/2024 09:37 Receipt Acknowledged By: * AWAITING SIGNATURE * MITCHEL RILEY JACQUELYNN D [facility]
--- OUTSIDE RECORDS SUMMARY | 2025-01-15 07:40 | XMS_ITS | Encounter Summary ---
Author Name [facility] [place] [facility] [facility] [place] Address [address] [place] [address] Care Team Providers Care Curriculum Designer Name Role Phone BROOKLYN ARAGON Primary Care [...] FOCUS FAMIL Y Oct 08, 2021 132 [id number] [phone] REISING,T YLER PATIENT CAREMARK ([id number])RX PRESCRIPT ION GEHA Oct 04, 2024 [id number] [phone] REISING,T YLER PATIENT CAREMARK FEP [id number] PRESCRIPT ION FEPRX Aug 16, 2019 [id number] [phone] REISING,T YLER PATIENT GEHA PREFERRED PROVIDER ORGANIZAT ION (PPO) GEHA STAND EVELYN Oct 04, 2024 [id number] [phone] REISING,T YLER PATIENT Selected Encounter This section includes the information on record at [place] for the Encounter. Date/Time Encounter Type Encounter Description Reason Pro vider Source Apr 17, 2024 05:04 PM Inpatient Visit ADMIN PAT ACTIVTIES (MASNONCT) EMILY MONTEMAYOR Karen Encounter Template Text not used by [place] Plan of Treatment: Future Appointments (+ 6 months) and Future Tests (+/- 45 days) The Plan of Treatment section includes future care activities for the [facility] [place] [facility] This section includes future appointments and future orders which are active, pending or scheduled. Future Appointments This section includes appointments that were scheduled to occur 6 months from the date of the Encounter, up to a maximum of 20 appointments. The data comes from all [place] treatment facilities. Appointment Date/Time Appointment Type Appointme nt Facility Name Apr 22, 2024 02:00 PM AMBULATORY - PSYCHIATRY [facility] Apr 22, 2024 03:30 PM AMBULATORY - MEDICINE [facility] Apr 27, 2024 02:45 PM AMBULATORY - SURGERY [facility] May 01, 2024 11:00 AM AMBULATORY - NONE [facility] May 15, 2024 09:30 AM AMBULATORY - SURGERY [facility] May 20, 2024 03:30 PM AMBULATORY - NONE [facility] May 28, 2024 02:00 PM AMBULATORY - PSYCHIATRY [facility] Jun 03, 2024 11:30 AM AMBULATORY - SURGERY [facility] Jun 11, 2024 01:00 PM AMBULATORY - PSYCHIATRY [facility] Jun 29, 2024 03:00 PM [facility] Jul 17, 2024 01:24 PM AMBULATORY - MEDICINE [facility] Jul 22, 2024 10:30 AM AMBULATORY - MEDICINE [facility] Jul 24, 2024 04:14 AM AMBULATORY - MEDICINE [facility] Aug 07, 2024 03:00 PM AMBULATORY - MEDICINE [facility] Oct 07, 2024 04:15 PM AMBULATORY - MEDICINE [facility] Oct 10, 2024 05:20 AM AMBULATORY - MEDICINE [facility] Active, Pending, and Scheduled Orders This section includes a listing of several types of active, pending, and scheduled orders, including clinic medications orders, diagnostic test orders, procedure orders and consult orders; where the start date of the order is 45 days before the date of the Encounter or 45 days after the date of theEncounter. The data comes from all [facility]. Test Date/Time Test Type Test Details Facility Name Mar 06, 2024 12:00 AM Laboratory - Chemistry Order CBC (DIFF&PLT) BLOOD SP [facility] Mar 06, 2024 12:00 AM Laboratory - Chemistry Order COMPREHENSIVE METABOLIC PANEL BLOOD PLASMA SP [facility] Mar 06, 2024 12:00 AM Laboratory - Chemistry Order URINALYSIS URINE SP [facility] Mar 06, 2024 12:00 AM Laboratory - Chemistry Order LIPID PANEL BLOOD PLASMA [facility] Mar 06, 2024 12:00 AM Laboratory - Chemistry Order TSH-G,LC,J,T BLOOD PLASMA SP [facility] Mar 06, 2024 12:00 AM Laboratory - Chemistry Order HEMOGLOBIN %A1C PROFILE BLOOD SP [facility] Mar 06, 2024 12:00 AM Laboratory - Chemistry Order MICROALBUMINURIA(IVONNE) URINE SP [facility] Apr 16, 2024 11:39 AM Laboratory - Chemistry Order MRSA SURVL NARES DNA NARES [facility] Apr 18, 2024 09:38 AM Laboratory - Chemistry Order MRSA SURVL NARES DNA NARES [facility] Lab Results: +/- 30 days of the encounter This section includes the Chemistry and Hematology Lab Results on record with [place] for the patient. Radiology Reports and Pathology Reports are provided separately, in subsequent sections. Lab Results This section contains the Chemistry/Hematology Results that were resulted 30 days before or 30 daysafter the date of the Encounter. Date/Time Source Result Type Result - Unit Interpretation Reference Range Specimen Type Comment Apr 17, 2024 08:49 PM [facility] BASIC METABOLIC PANEL PLASMA Specimen Type: PLASMA Comment: No hemolysis noted. Ordering Provider: JAKUB DOAN V Report Released Date/Time: Apr 16, 2024 04:01 PM Reporting Lab: [place] [address] [facility] [address] Performing Lab: [address] [place] [address] CREATININE 1.22 mg/dL 0.7-1.3 UREA NITROGEN 12.4 mg/dL 9.0-25.0 GLUCOSE 131 mg/dL H 72-99 SODIUM 139 meq/L 136-145 POTASSIUM 4.6 meq/L 3.5-5 CHLORIDE 105 meq/L 98-107 CARBON DIOXIDE 23 meq/L 22-31 CALCIUM 9.2 mg/dL 8.4-10.4 EGFR (CKD-EPI 2020) 79.3 >60 Apr 17, 2024 08:49 PM [facility] CBC BLOOD Specimen Type: BLOOD No comment entered. Ordering Provider: JAKUB DOAN V Report Released Date/Time: Apr 16, 2024 04:01 PM Reporting Lab: [address] [address] Performing Lab: [address] [address] WBC 11.4 10*3/uL H 3.6-11.2 RBC 5.43 [...] 0.00-0. 20 Apr 16, 2024 08:18 PM [facility] BASIC METABOLIC PANEL PLASMA Specimen Type: PL ASMA Comment: No hemolysis noted. Ordering Provider: JAKUB DOAN V Report Released Date/Time: Apr 16, 2024 04:01 PM Reporting Lab: [facility] [address] [facility] [address] Performing Lab: [address] [address] CREATININE 1.21 mg/dL 0.7-1.3 UREA NITROGEN 11.5 mg/dL 9.0-25.0 GLUCOSE 99 mg/dL 72-99 SODIUM 141 meq/L 136-145 POTASSIUM 3.8 meq/L 3.5-5 CHLORIDE 105 meq/L 98-107 CARBON DIOXIDE 25 meq/L 22-31 CALCIUM 9.2 mg/dL 8.4-10.4 EGFR (CKD-EPI 2020) 80.1 >60 Apr 16, 2024 08:18 PM [facility] APTT PLASMA Specimen Type: PLASM A No comment entered. Ordering Provider: JAKUB DOAN V Report Released Date/Time: Apr 16, 2024 04:02 PM Reporting Lab: [facility] [address] [facility] [address] Performing Lab: [address] [address] APTT 28.9 s 26.7-39.9 Apr 16, 2024 08:18 PM [facility] PT/INR NEW (STL-MA) PLASMA Specimen Type: PLAS MA No comment entered. Ordering Provider: JAKUB DOAN V Report Released Date/Time: Apr 16, 2024 04:02 PM Reporting Lab: [facility] [address] [facility] [address] Performing Lab: [address] [address] PROTIME 12.3 s 9.4-12.5 INR VALUE 1.1 {INR} Apr 16, 2024 08:18 PM [facility] CBC BLOOD Specimen Type: BLOOD No comment entered. Ordering Provider: JAKUB DOAN V Report Released Date/Time: Apr 16, 2024 04:01 PM Reporting Lab: [facility] [address] [facility] [address] Performing Lab: [facility] [address] [facility] [address] WBC 6.8 10*3/uL 3.6-11.2 RBC 5.13 10*6/uL [...] 20 Apr 16, 2024 03:25 AM [facility] LIPASE PLASMA Specimen Type: PLASM A Comment: No hemolysis noted. Ordering Provider: ADINA WALTON Report Released Date/Time: Apr 16, 2024 03:23 AM Reporting Lab: [facility] [address] [facility] [address] Performing Lab: [place] [address] [facility] [address] LIPASE 36 U/L 8-78 Apr 16, 2024 03:25 AM [facility] COMPREHENSIVE METABOLIC PANEL PLASMA Specimen Type: PLASMA Comment: No hemolysis noted. Ordering Provider: ADINA WALTON Report Released Date/Time: Apr 16, 2024 03:23 AM Reporting Lab: [facility] [address] [facility] [address] Performing Lab: [facility] [address] [facility] [address] CREATININE 1.42 mg/dL H 0.7-1.3 UREA NITROGEN [...] 66.1 >60 Apr 16, 2024 03:25 AM [facility] GGT GAMMA-GT PLASMA Specimen Type: PLASM A Comment: No hemolysis noted. Ordering Provider: ADINA WALTON Report Released Date/Time: Apr 16, 2024 03:23 AM Reporting Lab: [facility] [address] [place] [address] Performing Lab: [address] [address] GGT GAMMA-GT 25 [IU]/L 12-64 Apr 16, 2024 03:25 AM [facility] CBC BLOOD Specimen Type: BLOOD No comment entered. Ordering Provider: ADINA WALTON Report Released Date/Time: Apr 16, 2024 03:23 AM Reporting Lab: [facility] [address] [facility] [address] Performing Lab: [address] [address] WBC 8.8 10*3/uL 3.6-11.2 RBC 5.41 10*6/uL [...] Height Weight Body Mass Index Source Apr 17, 2024 09:57 PM 9 [facility] Apr 17, 2024 09:10 PM 8 [facility] Apr 17, 2024 08:24 PM 98 104 133/71 18 97 0 [facility] Apr 17, 2024 05:49 PM 3 [facility] Apr 17, 2024 03:30 PM 98.8 80 143/72 20 98 3 [facility] Social History: Smoking Status (Most current) and Tobacco Use (All prior to encounter date) This section includes the most current, and the historical, smoking and tobacco- related health factors from the [place] facility where the Encounter took place. Current Smoking Status This section includes the most current smoking, or tobacco-related health factor, from the [place] facility where the Encounter took place. Date/Time Current Smoking Status Comment Shameka martínez Jan 08, 2024 04:16 PM VA-TOBACCO FORMER USER [facility] Tobacco Use History This section includes a history of the smoking, or tobacco-related health factors, that were collected on or before the date of the Encounter. The data comes from the [place] facility where the Encounter took place. Date/Time Smoking Status/Tobacco Use Comment F acility Jan 08, 2024 04:16 PM VA-TOBACCO QUIT 15 YRS OR MORE [facility] Dec 18, 2023 09:41 AM VA-TOBACCO FORMER USER [facility] Dec 18, 2023 09:41 AM VA-TOBACCO QUIT 1 TO < 5 YRS [facility] Advance Directives: All historical and current Section Date Range: From patient's date of to the date document was created. This section includes ALL of a patient's completed or amended [place] Advance and Rescinded Directives. The entries below indicate that a directive exists for the patient, but an actual copy is not included with this document. The data comes from all [place] facilities. Date Advance Directives Provider Source Aug 28, 2023 ADVANCE DIRECTIVE NO TIFICATION AND SCREENING SYLWIA SANTIAGO [facility] May 14, 2023 ADVANCE DIRECTIVE NO TIFICATION AND SCREENING SYLWIA SANTIAGO [facility] Radiology Reports: +/- 30 [...] the Encounter. The data comes from all [place] treatment facilities. Date/Time Radiology Report Provider Source May 15, 2024 09:10 AM BONE DENSITY-P: MERLE LAFLEUR [id number] -1990 M Exm Date: MAY 15, 2024@09:10 Req Phys: SOBIA SORENSEN Pat Loc: [facility]-NEUROSURGERY PRODUCTION GRADER 1 (Req'g Lo Img Loc: [facility]BONE DENSITY Service: Unknown [facility] [address] [place] [address] (Case [id number] COMPLETE) NM BONE DENSITY(DXA), AXIAL SKELE(NM Detailed) CPT:42582 Reason for Study: L2, L3 comprerssion (Case [id number] COMPLETE) NM BONE DENSITY(DXA), APPENDICULA(NM Detailed) CPT:58509 Clinical History: BONE DENSITY Osteoporosis and Vertebral [...] interest outlined are available for viewing in Reading RoomTA Imaging and Radiology Viewer. Lumbar spine: Measured [...] M.D., NUCLEAR MEDICINE PHYSICIAN ([place]) /LETICIA LOYA [facility] May 01, 2024 09:48 AM MRI SPINE LUMBAR W /O CONT: RAMSESJEREMERLE [id number] -1990 M Ex Date: MAY 01, 2024@09:48 Req Phys: SOBIA SORENSEN Pat Loc: [facility]NEUROSURGERY PRODUCTION GRADER 1 (Req'g Lo Img Loc: [facility]MAGNETIC RESONANCE IMAGING Service: Unknown [facility] [address] [place] [address] (Case [id number] COMPLETE) MRI SPINE LUMBAR W/O CONT (MRI Detailed) CPT:49734 Reason for Study: Low back pain. L2, [...] Apr Responsible Attending: Valarie Attending Contact Number: [id number] Resident Contact Number: Does your patient have [...] 01, 2024 Date Verified: MAY 01, 2024 Marking Room Supervisor E-Sig:/ES/MONICA DUARTE Report: INDICATION: Low back pain. [...] above. Primary Interpreting Staff: MONICA DUARTE, RADIOLOGIST (Marking Room Supervisor) /MONICA ROJAS [facility] Apr 16, 2024 07:12 AM US ABDOMEN LIMITED W/BLOOD FLOW DOPPLER: MERLE LAFLEUR [id number] -1990 M Ex Date: APR 16, 2024@07:12 Req Phys: ADINA WALTON Loc: [facility]EMERGENCY DEPT 1ST SHIFT (R Img Loc: [facility]ULTRASOUND [facility] Service: Unknown [facility] [address] [place] [address] (Case [id number] COMPLETE) US ABDOMEN LTD, SINGLE ORG OR MORTEZA(US Detailed) CPT:15060 Reason for Study: eval acute cholecystitis (Case [id number] COMPLETE) US BLOOD FLOW ABD/RENAL (LTD) (US Detailed) CPT:61164 Clinical History: Organ to Image: Gallbladder Reason for exam: ho cholelithiasis. here with RUQ abdominal pain and nausea/emesis. Evaluate for acute cholecystitis Report Status: Verified Date Reported: APR 16, 2024 Date Verified: APR 16, 2024 Marking Room Supervisor E-Sig:/ES/JAIRO GARCIA Report: Case [id number], [id number]. US ABDOMEN LTD, SINGLE ORG OR QUADRANT, [...] findings. Primary Interpreting Staff: JAIRO GARCIA, RADIOLOGIST (Marking Room Supervisor) Primary Interpreting Resident: JOSE ROBERTO RAMSAY, Resident Physician /JAIRO NGUYEN [facility] Apr 16, 2024 04:[address] ABD PEL W/O & W CONT & 3D: MERLE LAFLEUR [id number] -1990 M Exm Date: APR 16, 2024@04:46 Req Phys: ADINA WALTON Loc: [facility]EMERGENCY DEPT 1ST SHIFT (R Img Loc: [facility]-CT IMAGING [facility] Service: Unknown [facility] [address] [place] [address] (Case [id number] COMPLETE) CT ABDOMEN AND PELVIS W/CONTRAST (CT Detailed) CPT:84722 Contrast Media : Non-ionic Iodinated Reason for Study: evaluate for acute cholecystitis (Case [id number] COMPLETE) CT 3D RENDERING W INDEPENDENT WOR(CT Detailed) CPT:22559 Clinical History: Responsible Attending: jordon Attending Contact Number: tn Resident Contact Number: ho cholelithiasis, now wiht [...] 16, 2024 Date Verified: APR 16, 2024 Marking Room Supervisor E-Sig:/ES/RANDALL JULES MD Report: Spiral axial imaging [...] Primary Interpreting Staff: RANDALL JULES MD, Radiologist (Marking Room Supervisor) /RANDALL BLANK [facility] Mar 25, 2024 07:[address] THORACIC SPINE W/O CONT: MERLE LAFLEUR [id number] -1990 M Exm Date: MAR 25, 2024@19:39 Req Phys: JESSICA PATTEN Loc: [facility]EMERGENCY DEPT 3RD SHIFT (R Img Loc: [facility]CT IMAGING [facility] Service: [address] [address] (Case [id number] COMPLETE) CT THORACIC SPINE W/O CONT (CT Detailed) CPT:41948 Reason for Study: eval for fx/dislcoation Clinical History: Responsible Attending: dr jessica patten Attending Contact Number: [phone] Resident Contact Number: FELL while roller blading. [...] 25, 2024 Date Verified: MAR 25, 2024 Marking Room Supervisor E-Sig: Report: CT THORACIC SPINE W/O CONT, CT LUMBAR SPINE W/O CONT HISTORY: eval for fx/dislcoation COMPARISON: No priors available. TECHNIQUE: The study was protocoled and supervised at the local [place] facility. 2807 images were subsequently received by the [place] National Teleradiology Program (NTP) for interpretation. Volumetric [...] fracture fragments. READING PHYSICIAN: Caio Rollins MD -[id number] 03/25/2024 18:30 PDT [facility] National Teleradiology Program [phone] (For Medical Practitioner Use Only) Attention Patients / Veterans: If you have questions or concerns about these test results, please contact your ordering provider or primary care team. Primary Interpreting Staff: RADIOLOGY,OUTSIDE SERVICE, Staff Physician / RADIOLOGY,OUTSIDE SERVICE [facility] Mar 25, 2024 07:[address] LUMBAR SPINE W/ O CONT: MERLE LAFLEUR [id number] -1990 M Exm Date: MAR 25, 2024@19:39 Req Phys: JESSICA PATTEN Loc: [facility]EMERGENCY DEPT 3RD SHIFT (R Img Loc: [facility]CT IMAGING [facility] Service: Unknown [facility], [facility] [address] [place] [address] (Case [id number] COMPLETE) CT LUMBAR SPINE W/O CONT (CT Detailed) CPT:89738 Reason for Study: eval for fx/dislocation Clinical History: Responsible Attending: DR JESSICA PATTEN Attending Contact Number: [phone] Resident Contact Number: FELL while roller blading. [...] 25, 2024 Date Verified: MAR 25, 2024 Marking Room Supervisor E-Sig: Report: CT THORACIC SPINE W/O CONT, CT LUMBAR SPINE W/O CONT HISTORY: eval for fx/dislcoation COMPARISON: No priors available. TECHNIQUE: The study was protocoled and supervised at the local [place] facility. 2807 images were subsequently received by the [place] National Teleradiology Program (NTP) for interpretation. Volumetric [...] fracture fragments. READING PHYSICIAN: Caio Rollins MD -[id number] 03/25/2024 18:30 PDT [facility] National Teleradiology Program [phone] (For Medical Practitioner Use Only) Attention Patients / Veterans: If you have questions or concerns about these test results, please contact your ordering provider or primary care team. Primary Interpreting Staff: RADIOLOGY,OUTSIDE SERVICE, Staff Physician / RADIOLOGY,OUTSIDE SERVICE [facility] Pathology Reports: +/- [...] the Encounter. The data comes from all [place] treatment facilities. Date/Time Pathology Report Provider Source [...] seen, and no masses are grossly identified. Hotel Operations Manager sections of the wall from the body [...] Performing Laboratory: Surgical Pathology Report Performed By: [facility], [facility] [address] [facility]# [id number] [address] [facility] [address] [place] [address] $FTR - - - - - - [...] - - MERLE LAFLEUR STANDARD FORM 515 ID:[id number] SEX:M :1990 AGE: 34 LOC:[facility] PCP: Jaswinder Villafuerte MD /cydney/ CHELI MORALES Pathologist Signed: 04/21/2024 11:44 CHELI MORALES [facility] Encounter Notes: All associated encounter notes This section contains the clinical notes associated to the Encounter. Date/Time Encounter Note(s) Provider Source Apr 17, 2024 05:04 PM ANESTHESIOLOGY JEREMY WSHEET: LOCAL TITLE: PACU POST-OP FLOWSHEET [facility] STANDARD TITLE: ANESTHESIOLOGY FLOWSHEET DATE OF NOTE: APR 17, 2024@17:04 ENTRY DATE: APR 17, 2024@17:04:46 AUTHOR: EMILY MONTEMAYOR COSIGNER: URGENCY: STATUS: COMPLETED Patient: MERLE LAFLEUR SSN: [id number] Anesthesia Method: General 04/17/2024 13:11 (Primary), Airway: Endotracheal Intubation, Technique: Direct Laryngoscopy, Patient Position: Supine, Preoxygenated, Induction Type: Intravenous, Ventilation by Mask: Easy to Ventilate with Aid/Adjunct, Intubating Device: Curved Blade, Ease: Easy, 1 Number Of Attempts, Intubation View: Grade 1, Blade Size: 4, Size: 8 mm, Depth (cm): 23, Tube: Cuffed, Depth Measurement Location: Teeth, Tracheal Cuff Inflated With Min. Volume To Create Seal, Tracheal Cuff Inflated With: Air, EtCO2 Verified: Waveform, Breath Sounds: Equal And Bilateral, Epigastric Sounds Negative, Performed By: ANES. MEDEL, Result: Successful Securement: Taped Eye Protection: Both Eyes, Tape Positioning: Head Neutral, Head And Neck In Alignment With Spine, Pressure Points Padded & Checked, Eyes, Ears And Nose Free Of Pressure ASA Number: 3 Procedure: LAPAROSCOPIC ROBOTIC ASSISTED CHOLECYSTECTOMY Diagnosis: INTRACTABLE BILIARY COLIC PACU Drugs: FentaNYL: 100 mcg HYDROmorphone: 1.2 mg PACU Fluids: Ringers Lactated Solution: 100 ml Anesthesia Procedure: --- Procedure 04/17/2024 13:29 In Situ, Line Number: 1, Site: Antecubital, Laterality: Left, Catheter Type: Angio, Catheter Size: 20 Ga Securement: Sterile Occlusive Dressing Procedure 04/17/2024 13:29 Line Number: 2, Level Of Consciousness: Anesthetized, Site: Hand, Laterality: Right, Catheter Type: Angio, Catheter Size: 18 Ga, Inserted By: Holding Nurse, 1 Number Of Attempts, Ease: Easy Securement: Sterile Occlusive Dressing inserted by Georgi Smith RN Procedure 04/17/2024 13:14 Level Of Consciousness: Anesthetized, Tube Type: Orogastric, Tube Size (Fr): 18, Lubricant Used: Yes, Inserted By: Other, 1 Number Of Attempts 13:14 G.I. Tube Inserted 15:21 G.I. Tube Removed Total Time: 02:07:04 Suctioned Pressure: Intermittent G.I. Insertion: Atraumatic Removed without any adverse events. Date of Operation: 04/17/2024 Anesthesia Care End: 04/17/2024 15:53 Resources: Aquacel foam placed on danika prominence to protect skin during surgery Safety Belt Robot undocked Staff: --------- TIFFANY ARNETT, SURGEON TIFFANY ARNETT, ATT. SURGEON EMILY MONTEMAYOR, Holding Nurse NIMESH ANTONY PRIN. ANES. MELIZA BLANCO, TREVORS. RICK. KELI KULKARNI, [facility] FIELD PERSON NAHID OTOOLE, Anesthesiologist EMILY MONTEMAYOR, Post-Op Nurse Surgery Start Time: 04/17/2024 13:21 Procedure End Time: Moderate Sedation Care End: /es/ EMILY MONTEMAYOR BSN RN REGISTERED NURSE Signed: 04/17/2024 17:04 EMILY MONTEMAYOR [facility]
--- OUTSIDE RECORDS SUMMARY | 2025-01-15 07:40 | XMS_ITS | Encounter Summary ---
Author Name [facility] Organization [facility] [place] Address [address] [place] [address] Care Team Providers Care Rod Puller Name Role Phone BROOKLYN ARAGON Primary Care [...] FOCUS FAMIL Y Oct 08, [phone] [id number] [phone] REISING,T YLER PATIENT CAREMARK ([id number])RX PRESCRIPT ION GEHA Oct 04, 2024 [id number] [phone] REISING,T YLER PATIENT CAREMARK FEP [id number] PRESCRIPT ION FEPRX Aug 16, 2019 [id number] [phone] REISING,T YLER PATIENT GEHA PREFERRED PROVIDER ORGANIZAT ION (PPO) GEHA STAND EVELYN Oct 04, 2024 [id number] REISING,T YLER PATIENT Selected Encounter This section includes the information on record at [place] for the Encounter. Date/Time Encounter Type Encounter Description Reason Provider Source Mar 25, 2024 06:00 PM Outpatient Encounter EMERGENCY DEPT ICD-10-CM M54.50 Low back pain, unspecified ADIEL WALTON Encounter Template Text not used by [place] Assessments - Encounter Diagnoses This section includes the primary and secondary diagnoses documented for the Encounter. Date/Time Primary/Secondary Diagnosis Diagnosis Name Provider Source Mar 25, 2024 06:00 PM PRIMARY Low back pain, unspecified MIYA FERRELL [facility] Plan of Treatment: Future Appointments (+ 6 months) and Future Tests (+/- 45 days) The Plan of Treatment section includes future care activities for the patient from [facility]. This section includes future appointments and future orders which are active, pending or scheduled. Future Appointments This section includes appointments that were scheduled to occur 6 months from the date of the Encounter, up to a maximum of 20 appointments. The data comes from all [place] treatment facilities. Appointment Date/Time Appointment Type Appointme nt Facility Name Apr 08, 2024 02:00 PM AMBULATORY - PSYCHIATRY [facility] Apr 16, 2024 03:06 AM AMBULATORY - MEDICINE [facility] Apr 16, 2024 08:30 AM AMBULATORY - SURGERY [facility] Apr 22, 2024 02:00 PM AMBULATORY - PSYCHIATRY [facility] Apr 22, 2024 03:30 PM AMBULATORY - MEDICINE [facility] Apr 27, 2024 02:45 PM AMBULATORY - SURGERY [facility] May 01, 2024 11:00 AM AMBULATORY - NONE [facility] May 15, 2024 09:30 AM AMBULATORY - SURGERY [facility] May 20, 2024 03:30 PM AMBULATORY - NONE [facility] May 28, 2024 02:00 PM AMBULATORY - PSYCHIATRY [facility] Jun 03, 2024 11:30 AM AMBULATORY - SURGERY [facility] Jun 11, 2024 01:00 PM AMBULATORY - PSYCHIATRY [facility] Jun 29, 2024 03:00 PM AMBULATORY - NONE [facility] Jul 17, 2024 01:24 PM AMBULATORY - MEDICINE [facility] Jul 22, 2024 10:30 AM AMBULATORY - MEDICINE [facility] Jul 24, 2024 04:14 AM AMBULATORY - MEDICINE [facility] Aug 07, 2024 03:00 PM AMBULATORY MEDICINE [facility] Active, Pending, and Scheduled Orders This section includes a listing of several types of active, pending, and scheduled orders, including clinic medications orders, diagnostic test orders, procedure orders and consult orders; where the start date of the order is 45 days before the date of the Encounter or 45 days after the date of theEncounter. The data comes from all [place] treatment facilities. Test Date/Time Test Type Test Details Facility Name Mar 06, 2024 12:00 AM Laboratory - Chemistry Order CBC (DIFF&PLT) BLOOD SP [facility] Mar 06, 2024 12:00 AM Laboratory - Chemistry Order COMPREHENSIVE METABOLIC PANEL BLOOD PLASMA [facility] Mar 06, 2024 12:00 AM Laboratory - Chemistry Order URINALYSIS URINE SP [facility] Mar 06, 2024 12:00 AM Laboratory - Chemistry Order LIPID PANEL BLOOD PLASMA [facility] Mar 06, 2024 12:00 AM Laboratory - Chemistry Order TSH-G,LC,J,T BLOOD PLASMA SP [facility] Mar 06, 2024 12:00 AM Laboratory - Chemistry Order HEMOGLOBIN %A1C PROFILE BLOOD SP [facility] Mar 06, 2024 12:00 AM Laboratory - Chemistry Order MICROALBUMINURIA(IVONNE) URINE SP [facility] Apr 16, 2024 11:39 AM Laboratory - Chemistry Order MRSA SURVL NARES DNA NARES [facility] Apr 18, 2024 09:38 AM Laboratory - Chemistry Order MRSA SURVL NARES DNA NARES [facility] Lab Results: +/- 30 days of the encounter This section includes the Chemistry and Hematology Lab Results on record with [place] for the patient. Radiology Reports and Pathology Reports are provided separately, in subsequent sections. Lab Results This section contains the Chemistry/Hematology Results that were resulted 30 days before or 30 daysafter the date of the Encounter. Date/Time Source Result Type Result - Unit Interpretation Reference Range Specimen Type Comment Apr 17, 2024 08:49 PM [facility] BASIC METABOLIC PANEL PLASMA Specimen Type: PLASMA Comment: No hemolysis noted. Ordering Provider: JAKUB DOAN V Report Released Date/Time: Apr 16, 2024 04:01 PM Reporting Lab: [facility] [address] [place] [phone] Performing Lab: [address] [address] CREATININE 1.22 mg/dL 0.7-1.3 UREA NITROGEN 12.4 mg/dL 9.0-25.0 GLUCOSE 131 mg/dL H 72-99 SODIUM 139 meq/L 136-145 POTASSIUM 4.6 meq/L 3.5-5 CHLORIDE 105 meq/L 98-107 CARBON DIOXIDE 23 meq/L 22-31 CALCIUM 9.2 mg/dL 8.4-10.4 EGFR (CKD-EPI 2020) 79.3 >60 Apr 17, 2024 08:49 PM [facility] CBC BLOOD Specimen Type: BLOOD No comment entered. Ordering Provider: JAKUB DOAN V Report Released Date/Time: Apr 16, 2024 04:01 PM Reporting Lab: [address] [address] Performing Lab: [address] [address] WBC 11.4 10*3/uL H 3.6-11.2 RBC 5.43 [...] 0.00-0. 20 Apr 16, 2024 08:18 PM [facility] APTT PLASMA Specimen Type: PLASM A No comment entered. Ordering Provider: JAKUB DOAN V Report Released Date/Time: Apr 16, 2024 04:02 PM Reporting Lab: [facility] [address] [facility] [address] Performing Lab: [address] [address] APTT 28.9 s 26.7-39.9 Apr 16, 2024 08:18 PM [facility] BASIC METABOLIC PANEL PLASMA Specimen Type: PL ASMA Comment: No hemolysis noted. Ordering Provider: JAKUB DOAN V Report Released Date/Time: Apr 16, 2024 04:01 PM Reporting Lab: [address] [address] Performing Lab: [address] [address] CREATININE 1.21 mg/dL 0.7-1.3 UREA NITROGEN 11.5 mg/dL 9.0-25.0 GLUCOSE 99 mg/dL 72-99 SODIUM 141 meq/L 136-145 POTASSIUM 3.8 meq/L 3.5-5 CHLORIDE 105 meq/L 98-107 CARBON DIOXIDE 25 meq/L 22-31 CALCIUM 9.2 mg/dL 8.4-10.4 EGFR (CKD-EPI 2020) 80.1 >60 Apr 16, 2024 08:18 PM [facility] PT/INR NEW (STL-MA) PLASMA Specimen Type: PLAS MA No comment entered. Ordering Provider: JAKUB DOAN V Report Released Date/Time: Apr 16, 2024 04:02 PM Reporting Lab: [address] [address] Performing Lab: [address] [address] PROTIME 12.3 s 9.4-12.5 INR VALUE 1.1 {INR} Apr 16, 2024 08:18 PM [facility] CBC BLOOD Specimen Type: BLOOD No comment entered. Ordering Provider: JAKUB DOAN V Report Released Date/Time: Apr 16, 2024 04:01 PM Reporting Lab: [address] [address] Performing Lab: [address] [address] WBC 6.8 10*3/uL 3.6-11.2 RBC 5.13 10*6/uL [...] 0.00-0. 20 Apr 16, 2024 03:25 AM [facility] LIPASE PLASMA Specimen Type: PLASM A Comment: No hemolysis noted. Ordering Provider: ADINA WALTON Report Released Date/Time: Apr 16, 2024 03:23 AM Reporting Lab: [address] [address] Performing Lab: [address] [address] LIPASE 36 U/L 8-78 Apr 16, 2024 03:25 AM [facility] COMPREHENSIVE METABOLIC PANEL PLASMA Specimen Type: PLASMA Comment: No hemolysis noted. Ordering Provider: ADINA WALTON Report Released Date/Time: Apr 16, 2024 03:23 AM Reporting Lab: [facility] [address] [facility] [address] Performing Lab: [facility] [address] [facility] [address] CREATININE 1.42 mg/dL H 0.7-1.3 UREA NITROGEN [...] 66.1 >60 Apr 16, 2024 03:25 AM [facility] GGT GAMMA-GT PLASMA Specimen Type: PLASM A Comment: No hemolysis noted. Ordering Provider: ADINA WALTON Report Released Date/Time: Apr 16, 2024 03:23 AM Reporting Lab: [facility] [address] [facility] [address] Performing Lab: [facility] [address] [facility] [address] GGT GAMMA-GT 25 [IU]/L 12-64 Apr 16, 2024 03:25 AM [facility] CBC BLOOD Specimen Type: BLOOD No comment entered. Ordering Provider: ADINA WALTON Report Released Date/Time: Apr 16, 2024 03:23 AM Reporting Lab: [facility] [address] [facility] [address] Performing Lab: [facility] [address] [facility] [address] WBC 8.8 10*3/uL 3.6-11.2 RBC 5.41 10*6/uL [...] 0.00-0. 20 Mar 01, 2024 09:06 PM [facility] HGA1C BLOOD Specimen Type: BLOOD No comment entered. Ordering Provider: ROYA CARTAGENA Report Released Date/Time: Feb 24, 2024 04:42 PM Reporting Lab: [address] [address] Performing Lab: [address] [address] HGA1C 5.3 4.0-6.0 Mar 01, 2024 09:06 PM [facility] LIPID PANEL (STL) PLASMA Specimen Type: PLAS MA Comment: No hemolysis noted. Ordering Provider: ROYA CARTAGENA Report Released Date/Time: Feb 24, 2024 04:42 PM Reporting Lab: [address] [address] Performing Lab: [address] [address] CHOLESTEROL 174 mg/dL 0-200 TRIGLYCERIDE 220 mg/dL H 0-150 CALCULATED LDL 98 mg/dL HDL(New) 32 mg/dL L >40 Mar 01, 2024 09:06 PM [facility] COMPREHENSIVE METABOLIC PANEL PLASMA Specimen Type: PLASMA Comment: No hemolysis noted. Ordering Provider: ROYA CARTAGENA Report Released Date/Time: Feb 24, 2024 04:42 PM Reporting Lab: [facility] [address] [place] [address] Performing Lab: [address] [address] CREATININE 1.33 mg/dL H 0.7-1.3 UREA NITROGEN [...] 71.9 >60 Mar 01, 2024 09:06 PM [facility] CBC BLOOD Specimen Type: BLOOD No comment entered. Ordering Provider: ROYA CARTAGENA Report Released Date/Time: Feb 24, 2024 04:42 PM Reporting Lab: [facility] [address] [facility] [address] Performing Lab: [address] [address] WBC 7.7 10*3/uL 3.6-11.2 RBC 5.34 10*6/uL [...] 0.00-0. 20 Mar 01, 2024 09:06 PM [facility] URINALYSIS (STL-PB) URINE Specimen Type: URIN E No comment entered. Ordering Provider: ROYA CARTAGENA Report Released Date/Time: Feb 24, 2024 04:42 PM Reporting Lab: [facility] [address] [facility] [address] Performing Lab: [facility] [address] [facility] [address] URINE COLOR Light-Yellow Yellow U.BILIRUBIN Negative mg/dL [...] mg/dL Negative-Tr alexander URN.SPECIFIC GRAVITY 1.025 1.005-1.029 Vital Signs: All taken on the encounter date This section contains inpatient and outpatient Vital Signs collected on the date of the Encounter. Date/Time Temperature Pulse Blood Pressure Respiratory Rate SP02 Pain Height Weight Body Mass Index Source Mar 25, 2024 10:25 PM 88 133/99 16 [facility] Mar 25, 2024 07:40 PM 94 103/93 17 [facility] Mar 25, 2024 07:31 PM 100 103/93 12 6 [facility] Mar 25, 2024 06:33 PM 97.9 88 114/74 16 98 4 [facility] Social History: Smoking Status (Most current) and Tobacco Use (All prior to encounter date) This section includes the most current, and the historical, smoking and tobacco- related health factors from the [place] facility where the Encounter took place. Current Smoking Status This section includes the most current smoking, or tobacco-related health factor, from the [place] facility where the Encounter took place. Date/Time Current Smoking Status Comment Facil ity Jan 08, 2024 04:16 PM VA-TOBACCO FORMER USER [facility] Tobacco Use History This section includes a history of the smoking, or tobacco-related health factors, that were collected on or before the date of the Encounter. The data comes from the [place] facility where the Encounter took place. Date/Time Smoking Status/Tobacco Use Comment F acility Jan 08, 2024 04:16 PM VA-TOBACCO QUIT 15 YRS OR MORE [facility] Dec 18, 2023 09:41 AM VA-TOBACCO FORMER USER [facility] Dec 18, 2023 09:41 AM VA-TOBACCO QUIT 1 TO < 5 YRS [facility] Advance Directives: All historical and current Section Date Range: From patient's date of to the date document was created. This section includes ALL of a patient's completed or amended [place] Advance and Rescinded Directives. The entries below indicate that a directive exists for the patient, but an actual copy is not included with this document. The data comes from all [place] facilities. Date Advance Directives Provider Source Aug 28, 2023 ADVANCE DIRECTIVE NO TIFICATION AND SCREENING SYLWIA SANTIAGO [facility] May 14, 2023 ADVANCE DIRECTIVE NO TIFICATION AND SCREENING SYLWIA SANTIAGO [facility] Radiology Reports: +/- 30 days of [...] the Encounter. The data comes from all [place] treatment facilities. Date/Time Radiology Report Provider Source Apr 16, 2024 07:12 AM US ABDOMEN LIMITED W/BLOOD FLOW DOPPLER: MERLE LAFLEUR [id number] -1990 M Exm Date: APR 16, 2024@07:12 Req Phys: ADINA WALTON Kathy Loc: [facility]EMERGENCY DEPT 1ST SHIFT (R Img Loc: [facility]ULTRASOUND [facility] Service: [facility] [address] [place] [address] (Case [id number] COMPLETE) US ABDOMEN LTD, SINGLE ORG OR MORTEZA(US Detailed) CPT:49101 Reason for Study: eval acute cholecystitis (Case [id number] COMPLETE) US BLOOD FLOW ABD/RENAL (LTD) (US Detailed) CPT:30046 Clinical History: Organ to Image: Gallbladder Reason for exam: ho cholelithiasis. here with RUQ abdominal pain and nausea/emesis. Evaluate for acute cholecystitis Report Status: Verified Date Reported: APR 16, 2024 Date Verified: APR 16, 2024 Home Lighting Adviser E-Sig:/ES/JAIRO GARCIA Report: Case [id number], [id number]. US ABDOMEN LTD, SINGLE ORG OR QUADRANT, [...] findings. Primary Interpreting Staff: JAIRO GARCIA, RADIOLOGIST (Home Lighting Adviser) Primary Interpreting Resident: JOSE ROBERTO RAMSAY, Resident Physician /JAIRO NGUYEN [facility] Apr 16, 2024 04:[address] ABD PEL W/O & W CONT & 3D: MERLE LAFLEUR [id number] -1990 M Exm Date: APR 16, 2024@04:46 Req Phys: ADINA WALTON Loc: [facility]EMERG[facility]Y DEPT 1ST SHIFT (R Img Loc: [facility]-CT IMAGING [facility] Service: Unknown [facility] [address] [place] [address] (Case [id number] COMPLETE) CT ABDOMEN AND PELVIS W/CONTRAST (CT Detailed) CPT:19609 Contrast Media : Non-ionic Iodinated Reason for Study: evaluate for acute cholecystitis (Case [id number] COMPLETE) CT 3D RENDERING W INDEPENDENT WOR(CT Detailed) CPT:81047 Clinical History: Responsible Attending: jordon Attending Contact Number: wi Resident Contact Number: ho cholelithiasis, now wiht [...] 16, 2024 Date Verified: APR 16, 2024 Home Lighting Adviser E-Sig:/ES/RANDALL JULES MD Report: Spiral axial imaging [...] Primary Interpreting Staff: RANDALL JULES MD, Radiologist (Home Lighting Adviser) /RANDALL BLANK [facility] Mar 25, 2024 07:[address] LUMBAR SPINE W/ O CONT: MERLE LAFLEUR [id number] -1990 M Exm Date: MAR 25, 2024@19:39 Req Phys: JESSICA PATTEN Loc: [facility]EMERGENCY DEPT 3RD SHIFT (R Img Loc: [facility]CT IMAGING [facility] Service: Unknown [facility], [facility] [address] [place] [address] (Case [id number] COMPLETE) CT LUMBAR SPINE W/O CONT (CT Detailed) CPT:73728 Reason for Study: eval for fx/dislocation Clinical History: Responsible Attending: DR JESSICA PATTEN Attending Contact Number: [id number] Resident Contact Number: FELL while roller blading. [...] 25, 2024 Date Verified: MAR 25, 2024 Home Lighting Adviser E-Sig: Report: CT THORACIC SPINE W/O CONT, CT LUMBAR SPINE W/O CONT HISTORY: eval for fx/dislcoation COMPARISON: No priors available. TECHNIQUE: The study was protocoled and supervised at the local [place] facility. 2807 images were subsequently received by the [place] National Teleradiology Program (NTP) for interpretation. Volumetric [...] fracture fragments. READING PHYSICIAN: Caio Rollins MD -[phone] 03/25/2024 18:[address] [facility] National Teleradiology Program [phone] (For Medical Practitioner Use Only) Attention Patients / Veterans: If you have questions or concerns about these test results, please contact your ordering provider or primary care team. Primary Interpreting Staff: RADIOLOGY,OUTSIDE SERVICE, Staff Physician / RADIOLOGY,OUTSIDE SERVICE [facility] Mar 25, 2024 07:[address] THORACIC SPINE W/O CONT: MERLE LAFLEUR [id number] -1990 M Exm Date: MAR 25, 2024@19:39 Req Phys: JESSICA PATTEN Loc: [facility]ERG[facility]Y [facility]PT 3RD SHIFT (R Img Loc: [facility]CT IMAGING [facility] Service: Unknown [facility], [facility] [address] [place] [address] (Case [id number] COMPLETE) CT THORACIC SPINE W/O CONT (CT Detailed) CPT:32167 Reason for Study: eval for fx/dislcoation Clinical History: Responsible Attending: dr jessica patten Attending Contact Number: [phone] Resident Contact Number: FELL while roller blading. [...] 25, 2024 Date Verified: MAR 25, 2024 Home Lighting Adviser E-Sig: Report: CT THORACIC SPINE W/O CONT, CT LUMBAR SPINE W/O CONT HISTORY: eval for fx/dislcoation COMPARISON: No priors available. TECHNIQUE: The study was protocoled and supervised at the local [place] facility. 2807 images were subsequently received by the [place] National Teleradiology Program (NTP) for interpretation. Volumetric [...] fracture fragments. READING PHYSICIAN: Caio Rollins MD -[phone] 03/25/2024 18:[address] [facility] National Teleradiology Program [phone] (For Medical Practitioner Use Only) Attention Patients / Veterans: If you have questions or concerns about these test results, please contact your ordering provider or primary care team. Primary Interpreting Staff: RADIOLOGY,OUTSIDE SERVICE, Staff Physician / RADIOLOGY,OUTSIDE SERVICE [facility] Pathology Reports: +/- 30 days [...] the Encounter. The data comes from all [place] treatment facilities. Date/Time Pathology Report Provider Source [...] seen, and no masses are grossly identified. Spa Director sections of the wall from the body [...] Performing Laboratory: Surgical Pathology Report Performed By: [address] [id number] [address] [place] [phone] $FTR - - - - - - [...] - - MERLE LAFLEUR STANDARD FORM 515 ID:[id number] SEX:M :1990 AGE: 34 LOC:[facility] PCP: Jaswinder Villafuerte MD /cydney/ CHELI MORALES Pathologist Signed: 04/21/2024 11:44 CHELI MORALES [facility] Encounter Notes: All associated encounter notes This section contains the clinical notes associated to the Encounter. Date/Time Encounter Note(s) Provider Source Mar 25, 2024 06:33 PM EMERGENCY DEPT TRI AGE NOTE: LOCAL TITLE: EMERGENCY DEPARTMENT TRIAGE NOTE STANDARD TITLE: EMERGENCY DEPT TRIAGE NOTE DATE OF NOTE: MAR 25, 2024@18:33 ENTRY DATE: MAR 25, 2024@18:33:47 AUTHOR: DONNIE WALTON EXP COSIGNER: URGENCY: STATUS: COMPLETED EMERGENCY DEPARTMENT TRIAGE NOTE Has ADDENDA Emergency Department/Urgent Care Center Triage Patient age:34 Sex: MALE On arrival patient was: WHEELCHAIR Patient phone number: Allergies: Patient has answered NKA Subjective/Chief Complaint: back pain Objective: PT presents to Ed from home with co back pain/injury. Pt states he fell while rollerblading. PT also states he took ibuprofen at home without relief of pain. No acute distress noted. The patient is not a fall risk. BP: 114/74 P: 88 R: 16 WT: T: 97.9 HT: Pulse Oximetry Room Air Sepsis Screening Evaluation Emergency Severity Index (NIRMAL) level Level 4 Current Medications: Active Outpatient Medications (including Supplies): [...] Vitamin D deficiency 19) Anxiety Suicide Screen: Miller Suicide Severity Rating Scale (C-SSRS) screener 1. [...] required due to responses to other questions. /es/ DONNIE STRICKLANDN RN REGISTERED NURSE Signed: 03/25/2024 18:35 03/25/2024 ADDENDUM STATUS: COMPLETED 1899- Pt arrived to rm 102-2 a complaint of back pain while skating Pt A&O x4 No C/O CP,SOB,N,V,D. Assessment completed,otherwise negative unless detailed herein. Pt placed on V/S with Cont. Pulse Ox monitor. PAL 20g LAC placed. Transparent drsg applied, positive blood return. No redness,swelling,pain. Pt asked to call for help via call light, siderail up for safety. 1916- ACETAMINOPHEN/HYDROCODONE 1 tab PO5/5 6/10 lower back pain 1917- METHOCARBAMOL 500MG PO /es/ [place] LEONGRN,BSN REGISTERED NURSE Signed: 03/25/2024 19:18 03/25/2024 ADDENDUM STATUS: COMPLETED 1930- Blood Pressure: 103/93 Pulse: 100 Respiratory Rate: 12 Pain: 6 Pulse Oximetry: 100%RA /es/ [place] LEONGRN,BSN REGISTERED NURSE Signed: 03/25/2024 19:31 03/25/2024 ADDENDUM STATUS: COMPLETED 1929 - report received from AMAN Sandoval. Pt resting in bed at this time with call light in reach and no needs. 1939 - Blood Pressure: 103/93 Pulse: 94 Respiratory Rate: 17 Pulse Oximetry: 95% 1999 - Pt resting in bed with no needs at this time. Call light within reach. Bedrails up x1 for patient safety. 2099 - Pt resting in bed with no needs at this time. Call light within reach. Bedrails up x1 for patient safety. NAD noted, respirations even and non-labored. 2200 - Pt resting in bed with no needs at this time. Call light within reach. Bedrails up x1 for patient safety. NAD noted, respirations even and non-labored. dad at bedside. 2209 - Dr. Patten in to speak with pt at this time. 2224 - dc instructions reviewed with pt who verbalized understanding. all questions answered. VS obtained. IV removed from left ac intact. bleeding controlled with pressure. pt's dad to pharmacy to tack picker prescriptions x 5. pt ED via wc to waiting rm, per his request. Blood Pressure: 133/99 Pulse: 88 Respiratory Rate: 16 Pulse Oximetry: 98% /cydney/ MADYSON STRICKLANDN RN REGISTERED NURSE Signed: 03/25/2024 23:18 DONNIE WALTON [facility]
--- OUTSIDE RECORDS SUMMARY | 2025-01-15 07:40 | XMS_ITS | Encounter Summary ---
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 Date/Time Encounter Type Encounter Description Reason Provider Source Jan 18, 2024 04:14 AM EMERGENCY DEPT VISIT MOD [facility]DM EMERGENCY DEPT ICD-10-CM R10.9 Unspecified abdominal pain TELMA CRUZ IHKaren Encounter Template Text not used by [place] Assessments - Encounter Diagnoses This section includes the primary and secondary diagnoses documented for the Encounter. Date/Time Primary/Secondary Diagnosis Diagnosis Name Provider Source Jan 18, 2024 06:21 AM PRIMARY Unspecified abdominal pain [facility] Jan 18, 2024 06:21 AM SECONDARY Encounter for administrative examinations, unspecified [facility] Plan of Treatment: Future Appointments (+ 6 months) and Future Tests (+/- 45 days) The Plan of Treatment section includes future care activities for the [facility] This section includes future appointments and future orders which are active, pending or scheduled. Future Appointments This section includes appointments that were scheduled to occur 6 months from the date of the Encounter, up to a maximum of 20 appointments. The data comes from all [place] treatment facilities. Appointment Date/Time Appointment Type Appointme nt Facility Name January 23, 2024 03:30 PM AMBULATORY - MEDICINE [facility] February 03, 2024 08:20 AM AMBULATORY - MEDICINE [facility] February 04, 2024 09:15 AM AMBULATORY - MEDICINE [facility] February 04, 2024 03:30 PM AMBULATORY - MEDICINE [facility] February 05, 2024 09:00 AM AMBULATORY - PSYCHIATRY [facility] February 07, 2024 08:00 AM AMBULATORY - SURGERY [facility] Feb 27, 2024 01:00 PM AMBULATORY - MEDICINE [facility] Feb 27, 2024 03:00 PM AMBULATORY - PSYCHIATRY [facility] Feb 28, 2024 07:09 PM AMBULATORY - MEDICINE [facility] Mar 03, 2024 02:00 PM AMBULATORY - PSYCHIATRY [facility] Mar 04, 2024 11:00 AM AMBULATORY - MEDICINE [facility] Mar 13, 2024 11:00 AM AMBULATORY - PSYCHIATRY [facility] Mar 20, 2024 09:00 AM AMBULATORY - PSYCHIATRY [facility] Mar 25, 2024 04:00 PM AMBULATORY - PSYCHIATRY [facility] Mar 25, 2024 06:00 PM AMBULATORY - MEDICINE [facility] Apr 08, 2024 02:00 PM AMBULATORY - PSYCHIATRY [facility] Apr 16, 2024 03:06 AM AMBULATORY - MEDICINE [facility] Apr 16, 2024 08:30 AM AMBULATORY - SURGERY [facility] Apr 22, 2024 02:00 PM AMBULATORY - PSYCHIATRY [facility] Apr 22, 2024 03:30 PM AMBULATORY - MEDICINE [facility] Active, Pending, and Scheduled Orders This section includes a listing of several types of active, pending, and scheduled orders, including clinic medications orders, diagnostic test orders, procedure orders and consult orders; where the start date of the order is 45 days before the date of the Encounter or 45 days after the date of the Encounter. The data comes from all [facility]. Test Date/Time Test Type Test Details Facility Name Jan 18, 2024 04:36 AM Laboratory - Chemistry Order CBC BLOOD STAT WC ONCE [facility] January 23, 2024 12:00 AM Laboratory - Chemistry Order LIPID PANEL (STL) GREEN LI/HEP BLD/PLAS PLASMA [facility] January 23, 2024 12:00 AM Laboratory - Chemistry Order HGA1C BLOOD [facility] January 23, 2024 12:00 AM Laboratory - Chemistry Order COMPREHENSIVE METABOLIC PANEL GREEN LI/HEP BLD/PLAS PLASMA [facility] January 23, 2024 12:00 AM Laboratory - Chemistry Order VITAMIN D, 25-HYDROXY GOLD/RED SST SERUM [facility] January 23, 2024 12:00 AM Laboratory - Chemistry Order B12 GOLD/RED SST SERUM [facility] January 23, 2024 12:00 AM Laboratory - Chemistry Order TSH ([place]-PB) GOLD/RED SST SERUM [facility] Lab Results: +/- 30 days of the encounter This section includes the Chemistry and Hematology Lab Results on record with [place] for the patient. Radiology Reports and Pathology Reports are provided separately, in subsequent sections. Lab Results This section contains the Chemistry/Hematology Results that were resulted 30 days before or 30 daysafter the date of the Encounter. Date/Time Source Result Type Result - Unit Interpretation Reference Range Specimen Type Comment Jan 18, 2024 04:22 AM [facility] COVID-19 DIAGNOSTIC (FLU/RSV)(STL) NASOPHARYNX Spec imen [...] epidemiological information for final interpretation. Ordering Provider: TELMA CRUZ Report Released Date/Time: Jan 18, 2024 04:23 AM Reporting Lab: [facility] [address] [facility] [address] Performing Lab: [address] [address] INFLUENZA A Negative Negative INFLUENZA B Negative Negative COVID-19 (STL-PB) Not Detected Not Detec braden RSV (Cepheid) NEGATIVE Negative Jan 18, 2024 04:22 AM [facility] COMPREHENSIVE METABOLIC PANEL PLASMA Specimen Type: PLASMA Comment: Aspartate Transaminase result may show positive bias due to hemolysis. K result canceled due to hemolysis. Specimen moderately hemolyzed. K Cancelled due to moderate hemolysis. NOTIFIED VIRGEN OLIVAS RN @ 0520 ON 01/18/24 BY [facility] Ordering Provider: TELMA CRUZ Report Released Date/Time: Jan 18, 2024 04:23 AM Reporting Lab: [facility] [address] [facility] [address] Performing Lab: [facility] [address] [facility] [address] CREATININE 1.43 mg/dL H 0.7-1.3 UREA NITROGEN [...] 18, 2024 04:22 AM [facility] CBC BLOOD Specimen Type: BLOOD No comment entered. Ordering Provider: TELMA CRUZ Report Released Date/Time: Jan 18, 2024 04:23 AM Reporting Lab: [facility] [address] [address] Performing Lab: [facility] [address] [address] WBC 8.4 10*3/uL 3.6-11.2 RBC 5.61 10*6/uL [...] 0.00-0. 20 Jan 18, 2024 04:22 AM [facility] LIPASE PLASMA Specimen Type: PLASM A Comment: *COMPREHENSIVE METABOLIC PANEL Not Performed: Jan 18, 2024@05:09 by *ENERGY TECHNICIAN Reason: DUPLICATE SPECIMEN ORDER. SEE ORDER [id number] Aspartate Transaminase result may show positive bias due to hemolysis. K result canceled due to hemolysis. Specimen moderately hemolyzed. Ordering Provider: TELMA CRUZ Report Released Date/Time: Jan 18, 2024 04:36 AM Reporting Lab: [facility] [address] [address] [address] Performing Lab: [facility] [address] [facility] [address] LIPASE 34 U/L 8-78 Jan 18, 2024 04:22 AM [facility] GGT GAMMA-GT PLASMA Specimen Type: PLASM A Comment: *COMPREHENSIVE METABOLIC PANEL Not Performed: Jan 18, 2024@05:09 by *ENERGY TECHNICIAN Reason: DUPLICATE SPECIMEN ORDER. SEE ORDER [id number] Aspartate Transaminase result may show positive bias due to hemolysis. K result canceled due to hemolysis. Specimen moderately hemolyzed. Ordering Provider: TELMA CRUZ Report Released Date/Time: Jan 18, 2024 04:36 AM Reporting Lab: [facility] [address] [facility] [address] Performing Lab: [facility] [address] [facility] [facility] [address] GGT GAMMA-GT 99 [IU]/L H 12-64 Vital Signs: All taken on the encounter date This section contains inpatient and outpatient Vital Signs collected on the date of the Encounter. Date/Time Temperature Pulse Blood Pressure Respiratory Rate SP02 Pain Height Weight Body Mass Index Source Jan 18, 2024 06:02 AM 77 132/88 16 [facility] Jan 18, 2024 04:22 AM 97.7 100 134/89 16 100 4 [facility] N Social History: Smoking Status (Most current) and Tobacco Use (All prior to encounter date) This section includes the most current, and the historical, smoking and tobacco- related health factors from the [place] facility where the Encounter took place. Current Smoking Status This section includes the most current smoking, or tobacco-related health factor, from the [facility] where the Encounter took place. Date/Time Current Smoking Status Comment Shameka martínez Jan 08, 2024 04:16 PM VA-TOBACCO FORMER USER [facility] Tobacco Use History This section includes a history of the smoking, or tobacco-related health factors, that were collected on or before the date of the Encounter. The data comes from the [place] facility where the Encounter took place. Date/Time Smoking Status/Tobacco Use Comment F accammy Jan 08, 2024 04:16 PM VA-TOBACCO QUIT 15 YRS OR MORE [facility] Dec 18, 2023 09:41 AM VA-TOBACCO FORMER USER [facility] Dec 18, 2023 09:41 AM [place]-TOBACCO QUIT 1 TO < 5 YRS [facility] Advance Directives: All historical and current Section Date Range: From patient's date of to the date document was created. This section includes ALL of a patient's completed or amended [place] Advance and Rescinded Directives. The entries below indicate that a directive exists for the patient, but an actual copy is not included with this document. The data comes from all [facility]. Date Advance Directives Provider Source Aug 28, 2023 ADVANCE DIRECTIVE NO TIFICATION AND SCREENING SYLWIA SANTIAGO [facility] May 14, 2023 ADVANCE DIRECTIVE NO TIFICATION AND SCREENING SYLWIA SANTIAGO [facility] Encounter Notes: All associated encounter notes This section contains the clinical notes associated to the Encounter. Date/Time Encounter Note(s) Provider Source Jan 18, 2024 06:07 AM EMERGENCY DEPT DIS CHARGE NOTE: LOCAL TITLE: DISCHARGE INSTRUCTIONS EMERGENCY DEPT [facility] STANDARD TITLE: EMERGENCY DEPT DISCHARGE NOTE DATE OF NOTE: JAN 18, 2024@06:07:53 ENTRY DATE: JAN 18, 2024@06:07:53 AUTHOR: TELMA CRUZ EXP COSIGNER: URGENCY: STATUS: COMPLETED DISCHARGE INSTRUCTIONS IMPORTANT: We examined and treated you today on an emergency basis only. This was not a substitute for, or an effort to provide, complete medical care. In most cases, you must let your healthcare provider check you again. Tell your healthcare provider about any new or lasting problems. We cannot recognize and treat all injuries or illnesses in one Emergency Department visit. You were treated today by José Antonio, . YOU ARE THE MOST IMPORTANT FACTOR IN YOUR RECOVERY. Follow the provided instructions carefully. CONTACT INFORMATION: -Hospital Information: [facility] - [address] [phone] -CRISIS Line: If you are having thoughts of harming yourself or thoughts of suicide immediately call the [place] Crisis line at [phone] -Nurse Line: If you have any questions regarding your health or symptoms please contact the nurse line at [phone] -General Help: Any questions or concerns, call [place] Clinical Contact Center - [phone]. Ask to speak to a doctor Saturday thru Saturday 8a-4:30p VISIT NOTES: If you had special tests, such as EKG's or X-rays, we will review them again within 24 hours. We will call you if there are any new suggestions. I put in referral to GI Follow up with your primary care doctor as well. Take tylenol up to 1000mg up to three times per day for pain. Ibuprofen can cause ulcers (if this is the concern). Same for naproxen or aspirin. You can take these occasionally but not frequently if this is your concern. zofran as needed for nausea. FOLLOW APPOINTMENT INFORMATION: It is important that you keep your scheduled appointments. If you have questions, or if you need to Make, Change or Cancel an Appointment or relay a message to your Primary Care or Specialty Care Provider please call [phone]. If you are not already established with a [place] primary animal care worker, an administrative request has been placed to offer that to you. You will recieve a notification for follow-up to be connected with a health care provider. Future Appointments 01/23/2024 at 3:30pm [facility] P[facility] MEDICATION INFORMATION: Take your medicines as prescribed. If you do not understand any of your medicines, please ask questions. If you think you may not be able to picker/puller your medicine, please let us know so we can look at other options. -Your medication list includes any medications that were recently prescribed but not filled by the Pharmacy (PENDING Medicines). -Included are any known ACTIVE Medicines. Please review this list to make sure it is accurate, if this list does not match the current medications you are taking please follow-up with your Primary Care Team to have your Medication List reviewed. Pending Medications [none] Active Medications ONDANSETRON 4MG ORAL DISINTEGRATING TAB TAKE ONE TABLET UNDER THE TONGUE EVERY EIGHT(8) HOURS NEEDED FOR NAUSEA/VOMITING Medications Medications in the last 90 days CITALOPRAM HYDROBROMIDE 20MG TAB TAKE ONE-HALF TABLET BY MOUTH EVERY MORNING FOR DEPRESSION TERBINAFINE HCL 1% CREAM APPLY LIBERALLY TO AFFECTED AREA(S) TWICE A DAY FOR FUNGAL SKIN INFECTION This Information Is About Your Illness and Diagnosis ABDOMINAL PAIN ( Stomach pain ) Abdominal pain is pain anywhere in the area between the chest and pelvis. There are many causes of abdominal pain, ranging from minor to quite severe. The source of pain may be coming from anywhere inside the abdominal area. Health care providers generally have to do a thorough physical exam and ask a lot of questions about abdominal pain. Common questions may include: -Is the pain sharp or dull? Does it come and go, or is it constant? Does it feel like cramps? -Is the pain located in a specific area or is it generalized over your abdomen? -How long have you had the pain? Did it begin suddenly? -Does anything make it better or worse? Did you eat something that could have affected your stomach? -Have you been vomiting? If so, how much, how often, and what does the vomit look like? -How long has it been since you had your last bowel movement? Are you constipated? Have you had diarrhea? -Have you noticed blood in your vomit or bowel movements? -Have you had an injury to your abdominal area or could you be ? -Have you had a fever? -Have you had any other symptoms along with your abdominal pain? -What medicines or herbal supplements are you taking? Some of the many causes of abdominal pain may include: -a viral or bacterial infection -gas or heartburn -constipation or a bowel obstruction -food poisoning or food allergy/intolerance -pulled or overused abdominal muscles -gastric or peptic ulcer -swollen lymph nodes in the sheath of tissue covering the abdominal organs -appendicitis -gallstones, bile stones, or kidney stones -urinary tract infection or kidney infection -irritable bowel syndrome, diverticulitis, colitis -menstrual pain, ovarian pain or cysts, endometriosis -pneumonia or heart attack What tests may be done? -a thorough physical exam -blood and lab tests -urine tests -x-rays, CT scan, or an ultrasound of the abdomen -electrocardiogram (ECG) to rule out a heart attack Please follow these instructions: -Rest more than usual while you have pain. -If you are vomiting, drink sips of clear liquids. -Avoid the following foods and drinks while you have abdominal pain: -citrus foods and drinks (oranges, grapefruit, lemonade) -fried or greasy foods -dairy foods (milk, cheese, yogurt) -tomato products -alcohol -carbonated drinks -coffee -Avoid ibuprofen (Motrin, Advil), naproxen (Aleve), and aspirin while you have abdominal pain. These medicines irritate the stomach. -Keep a pain diary describing your abdominal pain. Try to answer the Common Questions within this instruction. Contact your health care provider immediately if: -you develop chest pain and/or shortness of breath along with your abdominal pain. -you develop such severe pain that you can't move or find a comfortable position without causing more pain. -your stomach suddenly feels very hard and stiff. -you have blood in your vomit that is bright red or looks like coffee grounds. -you have blood in your diarrhea or bowel movements that is bright red or black and tar-like. Contact your health care provider as soon as possible if: -(FOR WOMEN): your vaginal discharge is foul smelling or has a change in color. -your abdominal pain becomes more severe and frequent. -your pain gets worse and is accompanied by vomiting or diarrhea. -you have any new or bothersome symptoms. Contact your health care provider as soon as possible if you have: -Concerns for an emergency medical condition -Uncontrolled pain or other life-threatening symptoms -Any worries or concerns -Other: ___ END OF INSTRUCTIONS /es/ Telma Cruz MD, PhD Staff Physician Signed: 01/18/2024 06:07 TELMA CRUZ [facility] Jan 18, 2024 05:00 AM ADDENDUM: LOCAL TITLE: Addendum STANDARD TITLE: ADDENDUM DATE OF NOTE: JAN 18, 2024@05:00:33 ENTRY DATE: JAN 18, 2024@05:00:34 AUTHOR: MADYSON OLIVAS EXP COSIGNER: URGENCY: STATUS: COMPLETED 0459 - the following med given per order from Dr. Cruz: MORPHINE SULFATE (UD) INJ 4MG/1ML IVP ONE-TIME STAT (FOR E.R. ADMINISTRATION ONLY) Indication: FOR ACUTE PAIN pt tolerated well with no adverse effects. med counted and pulled with Debo RN, present. /cydney/ MADYSON OLIVAS BSN RN REGISTERED NURSE Signed: 01/18/2024 05:01 Receipt Acknowledged By: 01/18/2024 07:40 /es/ REYES HILLS RN REGISTERED NURSE --- Original Document --- 01/18/24 EMERGENCY DEPARTMENT TRIAGE NOTE: Emergency Department/Urgent Care Center Triage Patient age:33 Sex: MALE On arrival patient was: AMBULATORY Patient phone number: Allergies: Patient has answered NKA Subjective/Chief Complaint: abd pain Objective: Pt to ER with complaints of epigastric pain that started suddenly while sleeping this afternoon. Pt also complains of nausea and vomiting. States this same problem has happened multiple times in the past but with no known cause. denies diarrhea, constipation, urinary symptoms and fever. The patient is not a fall risk. BP: 134/89 P: 100 R: 16 WT: T: 97.7 HT: Sepsis Screening Evaluation Emergency Severity Index (NIRMAL) level Level 3 Current Medications: Active Outpatient Medications (including Supplies): Active Outpatient Medications Status 1) ONDANSETRON 4MG ORAL DISINTEGRATING TAB TAKE ONE ACTIVE TABLET UNDER THE TONGUE EVERY EIGHT(8) HOURS NEEDED FOR NAUSEA/VOMITING Current Problems: 1) Depressive disorder 2) Sleep [...] 17) Allergic rhinitis 18) Vitamin D deficiency Suicide Screen: Loving Suicide Severity Rating Scale (C-SSRS) screener 1. [...] due to responses to other questions. /es/ PATEL RICKS BSN RN REGISTERED NURSE Signed: 01/18/2024 04:27 01/18/2024 ADDENDUM STATUS: COMPLETED 414 - pt ambulatory to rm 101-2. pt hooked up to blood pressure cuff and pulse ox. 20g pal to left ac. line flushes and draws with ease. line secured with transparent dressing. blood and covid specimens sent to lab. 0430 - 4 mg IVP Zofran given per verbal order from Dr. Cruz. pt tolerated well with no adverse effects. 0459 - the following med given per order from Dr. Cruz: MORPHINE SULFATE (UD) INJ 4MG/1ML IVP ONE-TIME STAT (FOR E.R. ADMINISTRATION ONLY) Indication: FOR ACUTE PAIN pt tolerated well with no adverse effects. 0602 - 20g pal removed from left ac. iv intact and bleeding controlled with pressure. Blood Pressure: 132/88 Pulse: 77 Respiratory Rate: 16 Pulse Oximetry: 99% 0609 - dc instructions reviewed with pt who verbalized understanding. pt ambulated from ED with a steady gait. /es/ MADYSON STRICKLANDN RN REGISTERED NURSE Signed: 01/18/2024 06:10 MADYSON OLIVAS [facility] Jan 18, 2024 04:49 AM PHYSICIAN EMERGENC Y DEPT NOTE: LOCAL TITLE: EMERGENCY DEPARTMENT [facility] STANDARD TITLE: PHYSICIAN EMERGENCY DEPT NOTE DATE OF NOTE: JAN 18, 2024@04:49 ENTRY DATE: JAN 18, 2024@04:49:19 AUTHOR: TELMA CRUZ COSIGNER: URGENCY: STATUS: COMPLETED TRIAGE CHIEF COMPLAINT: HPI: Patient is a 33yo M that works here and has a ho recurrent abdominal pain, mid-epigastric, associated with n/v. He gets this severe every few months. During this, he comes to ER for eval. He was getting workup by local pcp in [place] and they did CT scans, US, even HIDA scans but had not found a reason for the pain. He was going to get an endoscopy next. However, he had to move back to [facility] because his father had an MT. He will be staying here for a while and would like to get reestablished. Today he awoke with severe 8/10 mid-epigastric pain, with associated n/v REVIEW OF SYSTEMS: See HPI for further [...] 17) Allergic rhinitis 18) Vitamin D deficiency CURRENT MEDICATIONS: Active Outpatient Medications (including Supplies): Active Outpatient Medications Status 1) ONDANSETRON 4MG ORAL DISINTEGRATING TAB TAKE ONE ACTIVE TABLET UNDER THE TONGUE EVERY EIGHT(8) HOURS NEEDED FOR NAUSEA/VOMITING I have reviewed the patient's medication list with the patient and/or his/her care-business development manager. Any medication discrepancies have been resolved. Patient will be provided with an updated list of his/her medication(s). SURGICAL HISTORY: not pertinent FAMILY HISTORY: not pertinent SOCIAL HISTORY: Social History Main Topics: Smoking status: No data available for: Current Tobacco User Alcohol Use: not indorsed Negative mg/dL (04/18/22 12:22) Illicit Drug Use: not indorsed ALLERGIES: Review of patient's allergies indicates: Patient has answered NKA PHYSICAL EXAM: Gen: no acute distress abd: mid-epigastric tenderness on palpation, + bowel sound, no rebount tenderness, non distended. VITAL SIGNS: 134/89 (01/18/2024 04:22)100 (01/18/2024 04:22)100% (01/18/2024 04:22)97.7 F [36.5 C] (01/18/2024 04:22)16 (01/18/2024 04:22)The OBJECT WEIGHT LAST 3 was NOT found...Contact IRM. MAThe OBJECT was NOT found...Contact IRM.PAIN ASSESSMENTThe OBJECT was NOT found...Contact IRM. Measurement DT PAIN 01/18/2024 04:22 4 LABS: CMP: Cr 1.43, bsl 1.23 otherwise elevated ggt at 99, mild ast elevation CBC: wnl Lipase: wnl ED COURSE & MEDICAL DECISION MAKING: Nursing notes, medications, vital signs, allergies and pertinent labs & imaging studies reviewed (see chart for details) with lab results reviewed with patient/family and radiology results reviewed with patient/family. Stable, alert, nontoxic, nonfocal with clinically apparent abdominal pain of unclera etiology. He was being worked up by his pcp in [place] but he has now recently moved back. Will need to get established here. Given his symptoms and recurrence as well as frequent visits, will refer to GI given zofran and morphine pain improved. will dc with GI referral He already have appt with pcp scheduled for January MEDICATIONS GIVEN IN ED: [x] YES [ ] NO DECISION to ADMIT / DISCHARGE TIME: on arrival DISPOSITION CONDITION:[x] Improved [ ] Unchanged [ ] Deteriorated CLINICAL IMPRESSION: 1 - mid-epigastric abdominal pain 2 - 3 - DISCHARGE INSTRUCTIONS AND PATIENT-DIRECTED FOLLOW-UP RECOMMENDATIONS: DIET: regular ACTIVITY: ad hari NEW MEDS: MEDICATION RECONCILIATION: CONTINUE ALL PRESCRIBED MEDICATIONS DIRECTED EXCEPT: FOLLOW-UP WITH PRIMARY SUPERVISOR COOLER SERVICE/SPECIALIST: routine in 1-2 weeks if not improving, sooner if worse RETURN TO EMERGENCY: if any worries or concerns ADDITIONAL SIGNATURE PCP: [ ] YES [ ] NO [ ] not listed Active Outpatient Medications (including Supplies): Active Outpatient Medications Status 1) ONDANSETRON 4MG ORAL DISINTEGRATING TAB TAKE ONE ACTIVE TABLET UNDER THE TONGUE EVERY EIGHT(8) HOURS NEEDED FOR NAUSEA/VOMITING /es/ Telma Cruz MD, PhD Staff Physician Signed: 01/18/2024 06:05 TELMA CRUZ [facility] Jan 18, 2024 04:23 AM EMERGENCY DEPT TRI AGE NOTE: LOCAL TITLE: EMERGENCY DEPARTMENT TRIAGE NOTE STANDARD TITLE: EMERGENCY DEPT TRIAGE NOTE DATE OF NOTE: JAN 18, 2024@04:23 ENTRY DATE: JAN 18, 2024@04:23:07 AUTHOR: PATEL RICKS EXP COSIGNER: URGENCY: STATUS: COMPLETED EMERGENCY DEPARTMENT TRIAGE NOTE Has ADDENDA Emergency Department/Urgent Care Center Triage Patient age:33 Sex: MALE On arrival patient was: AMBULATORY Patient phone number: Allergies: Patient has answered NKA Subjective/Chief Complaint: abd pain Objective: Pt to ER with complaints of epigastric pain that started suddenly while sleeping this afternoon. Pt also complains of nausea and vomiting. States this same problem has happened multiple times in the past but with no known cause. denies diarrhea, constipation, urinary symptoms and fever. The patient is not a fall risk. BP: 134/89 P: 100 R: 16 WT: T: 97.7 HT: Sepsis Screening Evaluation Emergency Severity Index (NIRMLA) level Level 3 Current Medications: Active Outpatient Medications (including Supplies): Active Outpatient Medications Status 1) ONDANSETRON 4MG ORAL DISINTEGRATING TAB TAKE ONE ACTIVE TABLET UNDER THE TONGUE EVERY EIGHT(8) HOURS NEEDED FOR NAUSEA/VOMITING Current Problems: 1) Depressive disorder 2) Sleep [...] 17) Allergic rhinitis 18) Vitamin D deficiency Suicide Screen: Loving Suicide Severity Rating Scale (C-SSRS) screener 1. [...] PATEL RICKS BSN RN REGISTERED NURSE Signed: 01/18/2024 04:27 01/18/2024 ADDENDUM STATUS: COMPLETED 0415 - pt ambulatory to rm 101-2. pt hooked up to blood pressure cuff and pulse ox. 20g pal to left ac. line flushes and draws with ease. line secured with transparent dressing. blood and covid specimens sent to lab. 0430 - 4 mg IVP Zofran given per verbal order from Dr. Cruz. pt tolerated well with no adverse effects. 0459 - the following med given per order from Dr. Cruz: MORPHINE SULFATE (UD) INJ 4MG/1ML IVP ONE-TIME STAT (FOR E.R. ADMINISTRATION ONLY) Indication: FOR ACUTE PAIN pt tolerated well with no adverse effects. 0602 - 20g pal removed from left ac. iv intact and bleeding controlled with pressure. Blood Pressure: 132/88 Pulse: 77 Respiratory Rate: 16 Pulse Oximetry: 99% 0609 - dc instructions reviewed with pt who verbalized understanding. pt ambulated from ED with a steady gait. /cydney/ MADYSON CHAMBERS RN REGISTERED NURSE Signed: 01/18/2024 06:10 01/18/2024 ADDENDUM STATUS: COMPLETED 458 - the following med given per order from Dr. Cruz: MORPHINE SULFATE (UD) INJ 4MG/1ML IVP ONE-TIME STAT (FOR E.R. ADMINISTRATION ONLY) Indication: FOR ACUTE PAIN pt tolerated well with no adverse effects. med counted and pulled with AMAN Edmondson, present. /da CHAMBERS RN REGISTERED NURSE Signed: 01/18/2024 05:01 Receipt Acknowledged By: * AWAITING SIGNATURE * DEBO BAKER [facility] N [facility]
--- OUTSIDE RECORDS SUMMARY | 2025-01-15 07:40 | XMS_ITS | Encounter Summary ---
Author Name [facility] [facility] Address [address] [place] [address] Care Team Providers Care Copyholder Name Role Phone BROOKLYN ARAGON Primary Care [...] FOCUS FAMIL Y Oct 08, [phone] [id number] [phone] REISING,T YLER PATIENT CAREMARK ([id number])RX PRESCRIPT ION GEHA Oct 04, 2024 [id number] [phone] REISING,T YLER PATIENT CAREMARK FEP [id number] PRESCRIPT ION FEPRX Aug 16, 2019 [id number] [phone] REISING,T YLER PATIENT GEHA PREFERRED PROVIDER ORGANIZAT ION (PPO) GEHA STAND EVELYN Oct 04, 2024 [id number] REISING,T YLER PATIENT Selected Encounter This section includes the information on record at [place] for the Encounter. Date/Time Encounter Type Encounter Description Reason Provider Source Jun 29, 2024 03:00 PM OFFICE O/P NEW LOW 30 MIN ENDOCRINOLOGY ICD-10-CM E55.9 Vitamin D deficiency, unspecified CHANDLER ZAMORANO Encounter Template Text not used by [place] Assessments - Encounter Diagnoses This section includes the primary and secondary diagnoses documented for the Encounter. Date/Time Primary/Secondary Diagnosis Diagnosis Name Provider Source Jul 09, 2024 10:12 AM PRIMARY Vitamin D deficiency, unspecified SYED RICE [facility] Plan of Treatment: Future Appointments (+ 6 months) and Future Tests (+/- 45 days) The Plan of Treatment section includes future care activities for the patient from all [place] [facility]. This section includes future appointments and future orders which are active, pending or scheduled. Future Appointments This section includes appointments that were scheduled to occur 6 months from the date of the Encounter, up to a maximum of 20 appointments. The data comes from all [facility]. Appointment Date/Time Appointment Type Appointme nt Facility Name Jul 17, 2024 01:24 PM AMBULATORY - MEDICINE [facility] Jul 22, 2024 10:30 AM AMBULATORY - MEDICINE [facility] Jul 24, 2024 04:14 AM AMBULATORY - MEDICINE [facility] Aug 07, 2024 03:00 PM AMBULATORY - MEDICINE [facility] Oct 07, 2024 04:15 PM AMBULATORY - MEDICINE [facility] Oct 10, 2024 05:20 AM AMBULATORY - MEDICINE [facility] Dec 24, 2024 08:30 AM AMBULATORY - REHAB MEDICIN E [facility] Active, Pending, and [...] of theEncounter. The data comes from all [facility]. Test Date/Time Test Type Test Details Facility Name Jun 29, 2024 12:00 AM Laboratory - Chemi stry Order VITAMIN D, 25-HYDROXY GOLD/RED SST SERUM SP [facility] Lab Results: +/- 30 days of the encounter This section includes the Chemistry and Hematology Lab Results on record with [place] for the patient. Radiology Reports and Pathology Reports are provided separately, in subsequent sections. Lab Results This section contains the Chemistry/Hematology Results that were resulted 30 days before or 30 daysafter the date of the Encounter. Date/Time Source Result Type Result - Unit Interpretation Reference Range Specimen Type Comment Jul 24, 2024 04:16 AM [facility] GLUCOSE,BLOOD-poct (STL) BLOOD Specimen Type: BLOOD Comment: Test Performed by: [id number] Meter #: [id number] Ordering Provider: LENNY WEBB Report Released Date/Time: Jul 24, 2024 04:27 AM Reporting Lab: [address] [address] Performing Lab: [address] [address] GLUCOSE,BLOOD-poct (L) 84 mg/dL 72-99 Jul 17, 2024 03:46 PM [facility] URINALYSIS (STL-PB) URINE Specimen Type: URIN E No comment entered. Ordering Provider: KHLOE HOLT Report Released Date/Time: Jul 17, 2024 01:35 PM Reporting Lab: [place] [address] [facility] [id number] Performing Lab: [address] [address] URINE COLOR Light-Yellow Yellow U.BILIRUBIN Negative mg/dL Negative U.PH 8.0 5.0-8.0 URINE RBC/HPF 1 /[HPF] 0-5 APPEARANCE Clear Clear U.NITRITE Negative mg/dL Negative SQUAMOUS EPITH. <1 /[HPF] 0-5 MUCUS RARE /[LPF] Negative-Rare URN.GLUCOSE Normal mg/dL Negative URN.PROTEIN 20 mg/dL H URN.UROBILINOGEN Normal mg/dL Normal URN.BLOOD Negative mg/dL Negative-Trace URN.KETONES Negative mg/dL Negative-Trac e URN.LEUK.EST. Negative mg/dL Negative-Tr alexander URN.SPECIFIC GRAVITY 1.049 H Jul 17, 2024 01:37 PM [facility] LIPASE PLASMA Specimen Type: PLASM A Comment: No hemolysis noted. Ordering Provider: KHLOE HOLT Report Released Date/Time: Jul 17, 2024 01:35 PM Reporting Lab: [facility] [address] [facility] [address] Performing Lab: [facility] [address] [place] [id number] LIPASE 27 U/L 8-78 Jul 17, 2024 01:37 PM [facility] COMPREHENSIVE METABOLIC PANEL PLASMA Specimen Type: PLASMA Comment: No hemolysis noted. Ordering Provider: KHLOE HOLT Report Released Date/Time: Jul 17, 2024 01:35 PM Reporting Lab: [facility] [address] [place] [phone] Performing Lab: [address] [address] CREATININE 1.39 mg/dL H 0.7-1.3 UREA NITROGEN 12.6 mg/dL 9.0-25.0 GLUCOSE 84 mg/dL 72-99 SODIUM 142 meq/L 136-145 POTASSIUM 3.8 meq/L 3.5-5 CHLORIDE 107 meq/L 98-107 CARBON DIOXIDE 26 meq/L 22-31 CALCIUM 9.6 mg/dL 8.4-10.4 PROTEIN 7.0 g/dL 6-8.6 ALBUMIN 4.4 g/dL 3.4-5 TOTAL BILIRUBIN 0.7 mg/dL 0.2-1.2 ALKALINE PHOSPHATASE 78 U/L 40-150 AST/SGOT 13 U/L 5-34 ALT/SGPT 15 U/L 8-40 EGFR (CKD-EPI 2020) 67.8 >60 Jul 17, 2024 01:37 PM [facility] CBC BLOOD Specimen Type: BLOOD No comment entered. Ordering Provider: KHLOE HOLT Report Released Date/Time: Jul 17, 2024 01:35 PM Reporting Lab: [facility] [address] [facility] [address] Performing Lab: [address] [address] WBC 6.2 10*3/uL 3.6-11.2 RBC 5.64 10*6/uL 4.10-5.70 HGB 16.1 g/dL 13.1-16.8 HCT 46.8 38.2-48.4 MCV 83.0 fL 80.0-100.0 MCH 28.5 pg 27.0-34.0 MCHC 34.4 g/dL 33.0-36.0 PLT 201 10*3/uL 150-400 MPV 9.4 fL 7.5-11.2 RDW 13.0 11.8-15.1 LYMPHOCYTES, AUTO % 29 MONOCYTES, AUTO % 7 NEUTROPHILS, AUTO % 59 EOSINOPHILS, AUTO % 4 BASOPHILS, AUTO % 1 LYMPHOCYTES, ABSOLUTE 1.82 10*3/uL 0.77- 4.50 MONOCYTES, ABSOLUTE 0.46 10*3/uL 0.19-0. 80 NEUTROPHILS, ABSOLUTE 3.67 10*3/uL 2.10- 8.00 EOSINOPHILS, ABSOLUTE 0.22 10*3/uL 0.00- 0.60 BASOPHILS, ABSOLUTE 0.05 10*3/uL 0.00-0. 20 Vital Signs: All taken on the encounter date This section contains inpatient and outpatient Vital Signs collected on the date of the Encounter. Date/Time Temperature Pulse Blood Pressure Respiratory Rate SP02 Pain Height Weight Body Mass Index Source Jun 29, 2024 03:00 PM 97.7 86 113/76 16 98 4 250.2 32 [facility] Social History: Smoking Status (Most current) and Tobacco Use (All prior to encounter date) This section includes the most current, and the historical, smoking and tobacco- related health factors from the [place] facility where the Encounter took place. Current Smoking Status This section includes the most current smoking, or tobacco-related health factor, from the [place] facility where the Encounter took place. Date/Time Current Smoking Status Comment Facil ity Jan 08, 2024 04:16 PM VA-TOBACCO QUIT 15 YRS OR MORE [facility] Tobacco Use History This section includes a history of the smoking, or tobacco-related health factors, that were collected on or before the date of the Encounter. The data comes from the [place] facility where the Encounter took place. Date/Time Smoking Status/Tobacco Use Comment F acility Jan 08, 2024 04:16 PM VA-TOBACCO QUIT 15 YRS OR MORE [facility] Dec 18, 2023 09:41 AM [place]-TOBACCO FORMER USER [facility] Dec 18, 2023 09:41 AM MI-TOBACCO QUIT 1 TO < 5 YRS [facility] Advance Directives: All historical and current Section Date Range: From patient's date of to the date document was created. This section includes ALL of a patient's completed or amended [place] Advance and Rescinded Directives. The entries below indicate that a directive exists for the patient, but an actual copy is not included with this document. The data comes from all [place] facilities. Date Advance Directives Provider Source Aug 28, 2023 ADVANCE DIRECTIVE NO TIFICATION AND SCREENING SYLWIA SANTIAGO [facility] May 14, 2023 ADVANCE DIRECTIVE NO TIFICATION AND SCREENING SYLWIA SANTIAGO [facility] Radiology Reports: +/- 30 days [...] the Encounter. The data comes from all [place] treatment facilities. Date/Time Radiology Report Provider Source Jul 17, 2024 03:[address] ABD PEL W/CONT & 3D: MERLE LAFLEUR [id number] -[id number] M Exm Date: JUL 17, 2024@15:02 Req Phys: KHLOE HOLT Loc: [facility]-EMERGENCY DEPT 2ND SHIFT (R Img Loc: [facility]CT IMAGING [facility] Service: [facility], [address] [address] (Case [id number] COMPLETE) CT ABDOMEN AND PELVIS W/CONTRAST (CT Detailed) CPT:83107 Contrast Media : Non-ionic Iodinated Reason for Study: RUQ pain Clinical History: Responsible Attending: Yoni Attending Contact Number: [phone] Resident Contact Number: Recent lap ying now presenting with RUQ/epigastric pain with radiation to the back Allergies listed in CPRS chart: Patient has answered NKA Creatinine:CREATININE 1.39 H mg/dL 07/17/2024 13:37 /eGFR: STL EGFR (within one year). CREATININE 1.39 mg/dL H (07/17/24 13:37) Wt: 250.2 lb [113.49 kg] (06/29/2024 15:00) History of: Renal failure, chronic or acute renal disease: NO Report Status: Verified Date Reported: JUL 17, 2024 Date Verified: JUL 17, 2024 Lead Military Analyst E-Sig:/ES/BELIA CHRISTINE Report: Case [id number]. CT ABDOMEN AND PELVIS W/CONTRAST. Gastrointestinal contrast: None. IV contrast: Yes. Comparison: 04/16/2024 History: RUQ pain FINDINGS: Inferior chest: The visible lung bases are clear. Liver: Simple cyst is redemonstrated within the left hepatic lobe. The liver is otherwise homogeneous in attenuation without focal lesion. The main portal vein and branches are patent. Gallbladder: Surgically absent. Minimal fat stranding is seen at the cholecystectomy site near the expected cystic duct remnant which may be postoperative. Biliary: No intrahepatic or extrahepatic biliary ductal dilation. Spleen: Within normal limits. Pancreas: Within normal limits. Adrenals: Within normal limits. Kidneys: Within normal limits. Bladder: Within normal limits. Prostate: Within normal limits. Gastrointestinal: No dilated loops of large or small bowel.. The appendix appears within normal limits. The distal esophagus and the stomach appear normal. Retroperitoneum/mesentery: No enlarged mesenteric or retroperitoneal lymph nodes. There is redemonstration of mesenteric fat stranding surrounding the subcentimeter nodes with mild mass effect, compatible with mesenteric panniculitis. No ascites or free intraperitoneal air. Vascular: Within normal limits. Musculoskeletal: Superior endplate height loss at the L2 and L3 levels is unchanged. Schmorl's node at the T10 superior endplate is redemonstrated. Impression: 1. No acute process detected within the abdomen or pelvis. 2. Interval cholecystectomy. Minimal fat stranding at the cholecystectomy site may be postoperative. No postoperative fluid collection. No intrahepatic or extrahepatic biliary ductal dilation. Primary Interpreting Staff: BELIA CHRISTINE MD (Lead Military Analyst) /BELIA [facility] Encounter Notes: All associated encounter notes This section contains the clinical notes associated to the Encounter. Date/Time Encounter Note(s) Provider Source Jun 29, 2024 03:01 PM ENDOCRINOLOGY CONSULT: LOCAL TITLE: ENDOCRINOLOGY OUTPATIENT CONSULT [facility] STANDARD TITLE: ENDOCRINOLOGY CONSULT DATE OF NOTE: JUN 29, 2024@15:01 ENTRY DATE: JUN 29, 2024@15:01:24 AUTHOR: LADARIUS RICE COSIGNER: CHANDLER ZAMORANO URGENCY: STATUS: COMPLETED ENDOCRINOLOGY OUTPATIENT CONSULT [facility] Has ADDENDA ENDOCRINOLOGY OUTPATIENT VISIT HPI: MERLE LAFLEUR is a 34yo WHITE MALE who presents to clinic for new consult on compresion fracture of spine and concern for osteopenia. Patient had a fall in March 2024 while roller scating, hit his back against a hard floor. Unable to break the fall with his hands. Had CT and MRI of spine done with report remarkable for compression fracture in L3. Sent by BIOCHEMISTRY TEACHER due to concern for fragility fracture and abnormal DEXA scan. BMD April 2024 Report: Z-score femur 0.2 and spine 0.1 (normal). Bone density is normal, as above. No history of smoking, EtOH use, corticosteroid use. From chart review vit D level was low in 2022, did not receive replacement. Current diet not rich in calcium or vit D. ROS: Constitutional: No fevers, chills or night sweats HEENT: No visual changes, hearing changes, sinus congestion, or sore throat CV: No chest pain, palpitations, dyspnea on exertion Respiratory: No shortness of breath, cough, or wheezing GI: No abdominal pain, nausea, vomiting, diarrhea, constipation, melena, hematochezia : No hesitancy, urgency, no urinary frequency, nocturia, dysuria, hematuria, or incontinence Musculoskeletal: No joint pain or swelling Skin: No rashes or color changes Neuro: No headaches, lightheadedness, dizziness, focal weakness, or paresthesias Psych: Mood has been good denies depression and anxiety Endo: No symptoms of hypo/hyperthyroidism or hypo/hyperglycemia Allergies: Patient has answered NKA Medications: Active Outpatient Medications (excluding Supplies): No Medications Found Past Medical History: 1) Depressive disorder 2) Sleep disorder 3) [...] rhinitis 18) Vitamin D deficiency 19) Anxiety SOCIAL HISTORY: Marital status: Tobacco: no ETOH: no 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 250.2 lbs. / 113.5 kg. on JUN 29, 2024@15:00:32 2. 244.7 lbs. / 111.0 kg. on MAY 15, 2024@09:54:02 3. 241.0 lbs. / 109.3 kg. on APR 27, 2024@14:41:04 4. 243.4 lbs. / 110.4 kg. on APR 17, 2024@06:24:53 BMI: 32.2 GENERAL: No acute distress, Well developed, well nourished HEENT: EOMI, PERRL, sclera anicteric RESP: regular, unlabored, room air NEURO: strength equal bilaterally, sensation preserved on LE. PSYCH: pleasant, appropriate LABS: Comprehensive Metabolic Panel Results: SODIUM 139 mEq/L 04/17/2024 20:00 POTASSIUM 4.6 mEq/L 04/17/2024 20:00 CHLORIDE 105 mEq/L 04/17/2024 20:00 UREA NITROGEN 12.4 mg/dL 04/17/2024 20:00 CREATININE 1.22 mg/dL 04/17/2024 20:00 CALCIUM 9.2 mg/dL 04/17/2024 20:00 PROTEIN 6.9 g/dL 04/16/2024 03:25 ALBUMIN 4.4 g/dL 04/16/2024 03:25 ALKALINE PHOSPHATASE 97 U/L 04/16/2024 03:25 ALT/SGPT 14 U/L 04/16/2024 03:25 AST/SGOT 13 U/L 04/16/2024 03:25 TOTAL BILIRUBIN 0.5 mg/dL 04/16/2024 03:25 CARBON DIOXIDE 23 mEq/L 04/17/2024 20:00 GLUCOSE 131 H mg/dL 04/17/2024 20:00 EGFR (CKD-EPI 2020) 79.3 04/17/2024 20:00 Hemoglobin: HGB 15.1 g/dL 04/17/2024 20:00 Hematocrit: HCT 46.0 % 04/17/2024 20:00 Vitamin D: VITAMIN D, 25-HYDROXY 21.4 L ng/mL 01/01/2023 10:25 Phosphorus: No PHOSPHOROUS data found TSH: No TSH (2YR) EO data found ____ Total T3: 0 ng/dl PSA: No PSA EO data found No TESTOSTERONE EO data found No PROLACTIN EO data found Glucose: GLUCOSE 131 H mg/dL 04/17/2024 20:00 Hemoglobin A1C: HGA1C 5.3 % 03/01/2024 21:06 HGA1C 5.4 % 01/01/2023 10:25 HGA1C 5.4 % 03/02/2022 12:18 HGA1C 5.4 % 07/25/2021 07:08 HGA1C 5.3 % 02/22/2020 07:25 Microalb/creat ratio: No MICRAL/CREAT RATIO (STL) data found Lipid Panel: TRIGLYCERIDE 220 H mg/dL 03/01/2024 21:06 CHOLESTEROL 174 mg/dL 03/01/2024 21:06 HDL(New) 32 L mg/dL 03/01/2024 21:06 CALCULATED LDL 98 mg/dL 03/01/2024 21:06 Assessment and plan: # Compression fracture of L3 due to trauma # Consult for concern for low bone density For young patients a Z-score of -2 or lower is considered below the expected range for age. The patient's Z-score is normal. The fracture on L3 is most likely related to the high impact of the fall. No real concern for fragility fracture. Plan: - obtain vit D level today. Will wait for result and replace as needed. - Encouraged to maintain adequate dietary calcium and vit D intake. Questions answered. Verbalizes understanding. Patient staffed with Dr. Zamorano. /cydney/ SYED WAGNER ENDOCRINOLOGY FELLOW Signed: 06/29/2024 15:41 /cydney/ Chandler Zamorano MD Staff Physician Endocrinology Cosigned: 06/29/2024 16:17 06/29/2024 ADDENDUM STATUS: COMPLETED Seen and discussed with fellow. Agree with documentation and plan as outlined. /cydney/ Chandler Zamorano MD Staff Physician Endocrinology Signed: 06/29/2024 16:18 [facility]
--- OUTSIDE RECORDS SUMMARY | 2025-01-15 07:41 | XMS_ITS | Encounter Summary ---
Author Name [facility] [facility] [place] Address [address] [place] [address] Care Team Providers Care Area Counselor Name Role Phone BROOKLYN ARAGON Primary Care [...] FOCUS FAMIL Y Oct 08, 2021 132 [id number] [phone] REISING,T YLER PATIENT CAREMARK ([id number])RX PRESCRIPT ION GEHA Oct 04, 2024 [id number] [phone] REISING,T YLER PATIENT CAREMARK FEP [id number] PRESCRIPT ION FEPRX Aug 16, 2019 [id number] [phone] REISING,T YLER PATIENT GEHA PREFERRED PROVIDER ORGANIZAT ION (PPO) GEHA STAND EVELYN Oct 04, 2024 [id number] [phone] REISING,T YLER PATIENT Selected Encounter This section includes the information on record at [place] for the Encounter. Date/Time Encounter Type Encounter Description Reason Provider Source Mar 25, 2024 04:00 PM PSYTX W PT 45 [facility]ES [facility] - IND ICD-10-CM F33.1 Major depressive disorder, recurrent, moderate BORN,TAMIKO R E Encounter Template Text not used by [place] Assessments - Encounter Diagnoses This section includes the primary and secondary diagnoses documented for the Encounter. Date/Time Primary/Secondary Diagnosis Diagnosis Name Provider Source Mar 25, 2024 10:19 PM PRIMARY Major depressive disorder, recurrent, moderate BORN,TAMIKO R [facility] Plan of Treatment: Future Appointments (+ 6 months) and Future Tests (+/- 45 days) The Plan of Treatment section includes future care activities for the patient [facility] [place] [facility] This section includes future appointments and future orders which are active, pending or scheduled. Future Appointments This section includes appointments that were scheduled to occur 6 months from the date of the Encounter, up to a maximum of 20 appointments. The data comes from all [place] treatment facilities. Appointment Date/Time Appointment Type Appointme nt Facility Name Apr 08, 2024 02:00 PM AMBULATORY - PSY[facility]IATRY [facility] Apr 16, 2024 03:06 AM AMBULATORY - MEDICINE [facility] Apr 16, 2024 08:30 AM AMBULATORY - SURGERY [facility] Apr 22, 2024 02:00 PM AMBULATORY - PSYCHIATRY [facility] Apr 22, 2024 03:30 PM AMBULATORY - MEDICINE [facility] Apr 27, 2024 02:45 PM [facility]ULATORY - [facility]ERY [facility] May 01, 2024 11:00 AM [facility]ORY - NONE [facility] May 15, 2024 09:30 AM AMBULATORY - SURGERY [facility] May 20, 2024 03:30 PM [facility]ULATORY - NONE [facility] May 28, 2024 02:00 PM AMBULATORY - PSYCHIATRY [facility] Jun 03, 2024 11:30 AM AMBULATORY - SURGERY [facility] Jun 11, 2024 01:00 PM AMBULATORY - PSYCHIATRY [facility] Jun 29, 2024 03:00 PM [facility]ONE [facility] Jul 17, 2024 01:24 PM [facility] Jul 22, 2024 10:30 AM AMBULATORY - MEDICINE [facility] Jul 24, 2024 04:14 AM AMBULATORY - MEDICINE [facility] Aug 07, 2024 03:00 PM AMBULATORY - MEDICINE [facility] Active, Pending, and [...] of theEncounter. The data comes from all [facility] facilities. Test Date/Time Test Type Test Details Facility Name Mar 06, 2024 12:00 AM Laboratory - Chemistry Order CBC (DIFF&PLT) BLOOD SP [facility] Mar 06, 2024 12:00 AM Laboratory - Chemistry Order COMPREHENSIVE METABOLIC PANEL BLOOD PLASMA [facility] Mar 06, 2024 12:00 AM Laboratory - Chemistry Order URINALYSIS URINE SP [facility] Mar 06, 2024 12:00 AM Laboratory - Chemistry Order LIPID PANEL BLOOD PLASMA [facility] Mar 06, 2024 12:00 AM Laboratory - Chemistry Order TSH-G,LC,J,T BLOOD PLASMA [facility] Mar 06, 2024 12:00 AM Laboratory - Chemistry Order HEMOGLOBIN %A1C PROFILE BLOOD SP [facility] Mar 06, 2024 12:00 AM Laboratory - Chemistry Order MICROALBUMINURIA(IVONNE) URINE SP [facility] Apr 16, 2024 11:39 AM Laboratory - Chemistry Order MRSA SURVL NARES DNA [facility] Apr 18, 2024 09:38 AM Laboratory - Chemistry Order MRSA SURVL NARES DNA [facility] Lab Results: +/- 30 days of the encounter This section includes the Chemistry and Hematology Lab Results on record with [place] for the patient. Radiology Reports and Pathology Reports are provided separately, in subsequent sections. Lab Results This section contains the Chemistry/Hematology Results that were resulted 30 days before or 30 daysafter the date of the Encounter. Date/Time Source Result Type Result - Unit Interpretation Reference Range Specimen Type Comment Apr 17, 2024 08:49 PM [facility] BASIC METABOLIC PANEL PLASMA Specimen Type: PLASMA Comment: No hemolysis noted. Ordering Provider: JAKUB DOAN V Report Released Date/Time: Apr 16, 2024 04:01 PM Reporting Lab: [facility] [address] [facility] [address] Performing Lab: [address] [address] CREATININE 1.22 mg/dL 0.7-1.3 UREA NITROGEN 12.4 mg/dL 9.0-25.0 GLUCOSE 131 mg/dL H 72-99 SODIUM 139 meq/L 136-145 POTASSIUM 4.6 meq/L 3.5-5 CHLORIDE 105 meq/L 98-107 CARBON DIOXIDE 23 meq/L 22-31 CALCIUM 9.2 mg/dL 8.4-10.4 EGFR (CKD-EPI 2020) 79.3 >60 Apr 17, 2024 08:49 PM [facility] CBC BLOOD Specimen Type: BLOOD No comment entered. Ordering Provider: JAKUB DOAN V Report Released Date/Time: Apr 16, 2024 04:01 PM Reporting Lab: [address] [address] Performing Lab: [address] [address] WBC 11.4 10*3/uL H 3.6-11.2 RBC 5.43 [...] 0.00-0. 20 Apr 16, 2024 08:18 PM [facility] BASIC METABOLIC PANEL PLASMA Specimen Type: PL ASMA Comment: No hemolysis noted. Ordering Provider: JAKUB DOAN V Report Released Date/Time: Apr 16, 2024 04:01 PM Reporting Lab: [address] [address] Performing Lab: [address] [address] CREATININE 1.21 mg/dL 0.7-1.3 UREA NITROGEN 11.5 mg/dL 9.0-25.0 GLUCOSE 99 mg/dL 72-99 SODIUM 141 meq/L 136-145 POTASSIUM 3.8 meq/L 3.5-5 CHLORIDE 105 meq/L 98-107 CARBON DIOXIDE 25 meq/L 22-31 CALCIUM 9.2 mg/dL 8.4-10.4 EGFR (CKD-EPI 2020) 80.1 >60 Apr 16, 2024 08:18 PM [facility] APTT PLASMA Specimen Type: PLASM A No comment entered. Ordering Provider: JAKUB DOAN V Report Released Date/Time: Apr 16, 2024 04:02 PM Reporting Lab: [address] [address] Performing Lab: [address] [address] APTT 28.9 s 26.7-39.9 Apr 16, 2024 08:18 PM [facility] PT/INR NEW (STL-MA) PLASMA Specimen Type: PLAS MA No comment entered. Ordering Provider: JAKUB DOAN V Report Released Date/Time: Apr 16, 2024 04:02 PM Reporting Lab: [address] [address] Performing Lab: [place] [id number] [facility] [address] PROTIME 12.3 s 9.4-12.5 INR VALUE 1.1 {INR} Apr 16, 2024 08:18 PM [facility] CBC BLOOD Specimen Type: BLOOD No comment entered. Ordering Provider: JAKUB DOAN V Report Released Date/Time: Apr 16, 2024 04:01 PM Reporting Lab: [facility] [address] [place] [address] Performing Lab: [address] [address] WBC 6.8 10*3/uL 3.6-11.2 RBC 5.13 10*6/uL [...] 0.00-0. 20 Apr 16, 2024 03:25 AM [facility] LIPASE PLASMA Specimen Type: PLASM A Comment: No hemolysis noted. Ordering Provider: ADINA WALTON Report Released Date/Time: Apr 16, 2024 03:23 AM Reporting Lab: [facility] [address] [facility] [address] Performing Lab: [address] [address] LIPASE 36 U/L 8-78 Apr 16, 2024 03:25 AM [facility] COMPREHENSIVE METABOLIC PANEL PLASMA Specimen Type: PLASMA Comment: No hemolysis noted. Ordering Provider: ADINA WALTON Report Released Date/Time: Apr 16, 2024 03:23 AM Reporting Lab: [facility] [address] [facility] [address] Performing Lab: [facility] [address] [facility] [address] CREATININE 1.42 mg/dL H 0.7-1.3 UREA NITROGEN [...] 66.1 >60 Apr 16, 2024 03:25 AM [facility] GGT GAMMA-GT PLASMA Specimen Type: PLASM A Comment: No hemolysis noted. Ordering Provider: ADINA WALTON Report Released Date/Time: Apr 16, 2024 03:23 AM Reporting Lab: [facility] [address] [facility] [address] Performing Lab: [facility] [address] [facility] [address] GGT GAMMA-GT 25 [IU]/L 12-64 Apr 16, 2024 03:25 AM [facility] CBC BLOOD Specimen Type: BLOOD No comment entered. Ordering Provider: ADINA WALTON Report Released Date/Time: Apr 16, 2024 03:23 AM Reporting Lab: [facility] [address] [facility] [address] Performing Lab: [facility] [address] [facility] [address] WBC 8.8 10*3/uL 3.6-11.2 RBC 5.41 10*6/uL [...] 0.00-0. 20 Mar 01, 2024 09:06 PM [facility] HGA1C BLOOD Specimen Type: BLOOD No comment entered. Ordering Provider: ROYA CARTAGENA Report Released Date/Time: Feb 24, 2024 04:42 PM Reporting Lab: [address] [address] Performing Lab: [address] [address] HGA1C 5.3 4.0-6.0 Mar 01, 2024 09:06 PM [facility] LIPID PANEL (STL) PLASMA Specimen Type: PLASM A Comment: No hemolysis noted. Ordering Provider: ROYA CARTAGENA Report Released Date/Time: Feb 24, 2024 04:42 PM Reporting Lab: [address] [address] Performing Lab: [address] [address] CHOLESTEROL 174 mg/dL 0-200 TRIGLYCERIDE 220 mg/dL H 0-150 CALCULATED LDL 98 mg/dL HDL(New) 32 mg/dL L >40 Mar 01, 2024 09:06 PM [facility] COMPREHENSIVE METABOLIC PANEL PLASMA Specimen Type: PLASMA Comment: No hemolysis noted. Ordering Provider: ROYA CARTAGENA Report Released Date/Time: Feb 24, 2024 04:42 PM Reporting Lab: [facility] [address] [place] [address] Performing Lab: [address] [address] CREATININE 1.33 mg/dL H 0.7-1.3 UREA NITROGEN [...] 71.9 >60 Mar 01, 2024 09:06 PM [facility] URINALYSIS (STL-PB) URINE Specimen Type: URIN E No comment entered. Ordering Provider: ROYA CARTAGENA Report Released Date/Time: Feb 24, 2024 04:42 PM Reporting Lab: [facility] [address] [facility] [address] Performing Lab: [address] [address] URINE COLOR Light-Yellow Yellow U.BILIRUBIN Negative mg/dL [...] 1.025 1.005-1.029 Mar 01, 2024 09:[address] [facility] CBC BLOOD Specimen Type: BLOOD No comment entered. Ordering Provider: ROYA CARTAGENA Report Released Date/Time: Feb 24, 2024 04:42 PM Reporting Lab: [facility] [address] [facility] [address] Performing Lab: [facility] [address] [facility] [address] WBC 7.7 10*3/uL 3.6-11.2 RBC 5.34 10*6/uL [...] and tobacco- related health factors from the [place] facility where the Encounter took place. Current Smoking Status This section includes the most current smoking, or tobacco-related health factor, from the [place] facility where the Encounter took place. Date/Time Current Smoking Status Comment Shameka ity Apr 18, 2022 11:00 AM [place]-TOBAC[place] FORMER USER [facility] Tobacco Use History This section includes a history of the smoking, or tobacco-related health factors, that were collected on or before the date of the Encounter. The data comes from the [place] facility where the Encounter took place. Date/Time Smoking Status/Tobacco Use Comment F acility Apr 18, 2022 11:00 AM [place]-TO[place]AC[place] QUIT 1 TO < 5 YRS [facility] Advance Directives: All historical and current Section Date Range: From patient's date of to the date document was created. This section includes ALL of a patient's completed or amended [place] Advance and Rescinded Directives. The entries below indicate that a directive exists for the patient, but an actual copy is not included with this document. The data comes from all [place] facilities. Date Advance Directives Provider Source Aug 28, 2023 ADVANCE DIRECTIVE NO TIFICATION AND SCREENING SYLWIA SANTIAGO [facility] May 14, 2023 ADVANCE DIRECTIVE NO TIFICATION AND SCREENING SYLWIA SANTIAGO [facility] Radiology Reports: +/- 30 days of [...] the Encounter. The data comes from all [place] treatment facilities. Date/Time Radiology Report Provider Source Apr 16, 2024 07:12 AM US ABDOMEN LIMITED W/BLOOD FLOW DOPPLER: MERLE LAFLEUR [id number] -1990 M Exm Date: APR 16, 2024@07:12 Req Phys: ADINA WALTON Loc: [facility]ERGENCY DEPT 1ST SHIFT (R Img Loc: [facility]ULTRASOUND [facility] Service: Unknown [facility], [address] [facility] [place] [address] (Case [id number] COMPLETE) US ABDOMEN LTD, SINGLE ORG OR MORTEZA(US Detailed) CPT:93256 Reason for Study: eval acute cholecystitis (Case [id number] COMPLETE) US BLOOD FLOW ABD/RENAL (LTD) (US Detailed) CPT:55933 Clinical History: Organ to Image: Gallbladder Reason for exam: ho cholelithiasis. here with RUQ abdominal pain and nausea/emesis. Evaluate for acute cholecystitis Report Status: Verified Date Reported: APR 16, 2024 Date Verified: APR 16, 2024 Manager Credit E-Sig:/ES/JAIRO MCCOY Report: Case [id number], [id number]. US ABDOMEN LTD, SINGLE ORG OR QUADRANT, [...] findings. Primary Interpreting Staff: JAIRO MCCOY, RADIOLOGIST (Manager Credit) Primary Interpreting Resident: JOSE ROBERTO RAMSAY, Resident Physician /JAIRO NGUYEN [facility] Apr 16, 2024 04:[address] ABD PEL W/O & W CONT & 3D: MERLE LAFLEUR [id number] -1990 M Exm Date: APR 16, 2024@04:46 Req Phys: ADINA WALTON Loc: [facility]Y [facility]PT 1ST SHIFT (R Img Loc: [facility]-CT IMAGING [facility] Service: Unknown [facility], [address] [place] [address] (Case [id number] COMPLETE) CT ABDOMEN AND PELVIS W/CONTRAST (CT Detailed) CPT:47586 Contrast Media : Non-ionic Iodinated Reason for Study: evaluate for acute cholecystitis (Case [id number] COMPLETE) CT 3D RENDERING W INDEPENDENT WOR(CT Detailed) CPT:77508 Clinical History: Responsible Attending: jordon Attending Contact Number: tx Resident Contact Number: ho cholelithiasis, now wiht [...] 16, 2024 Date Verified: APR 16, 2024 Manager Credit E-Sig:/ES/RANDALL JULES MD Report: Spiral axial imaging [...] Primary Interpreting Staff: RANDALL JULES MD, Radiologist (Manager Credit) /CPG RANDALL JULES [facility] Mar 25, 2024 07:[address] THORACIC SPINE W/O CONT: MERLE LAFLEUR [id number] -1990 M Exm Date: MAR 25, 2024@19:39 Req Phys: JESSICA PATTEN Loc: [facility]PT 3RD SHIFT (R Img Loc: [facility]CT IMAGING [facility] Service: [facility], [facility] [address] [place] [address] (Case [id number] COMPLETE) CT THORACIC SPINE W/O CONT (CT Detailed) CPT:93534 Reason for Study: eval for fx/dislcoation Clinical History: Responsible Attending: dr jessica patten Attending Contact Number: [phone] Resident Contact Number: FELL while roller blading. [...] 25, 2024 Date Verified: MAR 25, 2024 Manager Credit E-Sig: Report: CT THORACIC SPINE W/O CONT, CT LUMBAR SPINE W/O CONT HISTORY: eval for fx/dislcoation COMPARISON: No priors available. TECHNIQUE: The study was protocoled and supervised at the local [place] facility. 2807 images were subsequently received by the [place] National Teleradiology Program (NTP) for interpretation. Volumetric [...] fracture fragments. READING PHYSICIAN: Caio Rollins MD -[phone] 03/25/2024 18:30 PDT [facility] National Teleradiology Program [phone] (For Medical Practitioner Use Only) Attention Patients / Veterans: If you have questions or concerns about these test results, please contact your ordering provider or primary care team. Primary Interpreting Staff: RADIOLOGY,OUTSIDE SERVICE, Staff Physician / RADIOLOGY,OUTSIDE SERVICE [facility] Mar 25, 2024 07:[address] LUMBAR SPINE W/ O CONT: MERLE LAFLEUR [id number] -1990 M Ex Date: MAR 25, 2024@19:39 Req Phys: JESSICA PATTEN Loc: [facility]Y [facility]PT 3RD SHIFT (R Img Loc: [facility]CT IMAGING [facility] Service: Unknown [facility], [facility] [address] [place] [address] (Case [id number] COMPLETE) CT LUMBAR SPINE W/O CONT (CT Detailed) CPT:83657 Reason for Study: eval for fx/dislocation Clinical History: Responsible Attending: DR JESSICA PATTEN Attending Contact Number: [phone] Resident Contact Number: FELL while roller blading. [...] 25, 2024 Date Verified: MAR 25, 2024 Manager Credit E-Sig: Report: CT THORACIC SPINE W/O CONT, CT LUMBAR SPINE W/O CONT HISTORY: eval for fx/dislcoation COMPARISON: No priors available. TECHNIQUE: The study was protocoled and supervised at the local [place] facility. 2807 images were subsequently received by the [place] National Teleradiology Program (NTP) for interpretation. Volumetric [...] fracture fragments. READING PHYSICIAN: Caio Rollins MD -[phone] 03/25/2024 18:30 PDT [facility] National Teleradiology Program [phone] (For Medical Practitioner Use Only) Attention Patients / Veterans: If you have questions or concerns about these test results, please contact your ordering provider or primary care team. Primary Interpreting Staff: RADIOLOGY,OUTSIDE SERVICE, Staff Physician / RADIOLOGY,OUTSIDE SERVICE [facility] Pathology Reports: +/- 30 days [...] the Encounter. The data comes from all [place] treatment facilities. Date/Time Pathology Report Provider Source [...] seen, and no masses are grossly identified. Delivery Driver/Customer Service sections of the wall from the body [...] Performing Laboratory: Surgical Pathology Report Performed By: [facility] CLIA# [id number] [address] [facility] [address] [place] [address] $FTR - - - - - - - - - - - - - - - - - - - - - - - - - - - - - - - - - - - - - - - - (End of report) CHELI MORALES MD aq Date Apr 21, 2024 - - - - - - - - - - - - - - - - - - - - - - - - - - - - - - - - - - - - - - - - RAMSESMERLE OQUENDO STANDARD FORM 515 ID:[id number] SEX:M :1990 AGE: 34 LOC:[facility] PCP: Jaswinder Villafuerte MD /cydney/ CHELI MORALES Pathologist Signed: 04/21/2024 11:[address] [facility] Encounter Notes: All associated encounter notes This section contains the clinical notes associated to the Encounter. Date/Time Encounter Note(s) Provider Source Mar 25, 2024 04:01 PM SOCIAL WORK NOTE: LOCAL TITLE: SOCIAL WORK [facility] STANDARD TITLE: SOCIAL WORK NOTE DATE OF NOTE: MAR 25, 2024@16:01 ENTRY DATE: MAR 25, 2024@16:01:33 AUTHOR: TAMIKO LIVE COSIGNER: URGENCY: STATUS: COMPLETED COGNITIVE BEHAVIORAL THERAPY FOR DEPRESSION (CBT-D): MIDDLE PHASE Time in session (in minutes): 50 SESSION NUMBER: 2 SESSION LOCATION [facility] DIAGNOSIS: Primary (focus of treatment): Generalized Anxiety Disorder ASSESSMENT Date Instrument Raw Trans Scale 03/03/2024 14:13 PHQ9 12 PHQ9 02/25/2024 14:41 PHQ9 13 PHQ9 02/04/2024 15:50 PHQ9 15 PHQ9 05/31/2022 09:17 PHQ9 8 PHQ9 05/17/2022 09:03 PHQ9 11 PHQ9 05/04/2022 10:40 PHQ9 14 PHQ9 OTHER ASSESSMENT MEASURES 11/30 doing pretty good I haven't been doing things that are that stressful. SESSION CONTENT: In this middle phase session of Cognitive Behavioral Therapy (CBT) for depression, the following therapeutic activities were performed: BRIDGE FROM LAST SESSION Therapist inquired about what the [place] found important or helpful from the last session and if the had any concerns about the last session. Therapist inquired about the degree to which the homework was completed and what was learned from the homework assessment. PRIORITIZED AGENDA The therapist and collaboratively developed a prioritized agenda. COGNITIVE STRATEGIES: The following cognitive strategies were discussed during the session: Identified Automatic Thoughts Used 3-Column Thought Record Identified Core Beliefs/Intermediate Beliefs/Compensatory Strategies COLLABORATIVE HOMEWORK ASSIGNMENT: The homework assignment for this session was: The homework assignment and goal of the assignment was written down. The therapist inquired about 's understanding of the homework assignment and its rationale. Therapist and [place] discussed the likelihood that the will do the homework. Specific roadblocks or challenges for doing the homework were discussed. FINAL SUMMARY AND FEEDBACK: COLLABORATION The degree of collaboration between the and the therapist in the current session was high. Description of collaboration in this session: ADDITIONAL SESSION INFORMATION: recent anxiety attack yesterday Hyperventilating Kids were playing on the stairs reports that he was yelling at his kids to stop playing on the stairs and one slid down the stairs on a box. He reports he went to the bathroom and was breathing heavily, heart racing and palpitating. He reports that it lasted a few minutes. Had to focus on my breathing and snapped myself out of it. He reports that he turned on a movie for the kids to get them occupied on something else. I was raised Orthodox and anxiety is seen sin. PLAN Next session planned for agreed upon date/time of: 04/08/24 at 2PM for [facility] RISK ASSESSMENT: NOTE: Complete either No Change in Risk Factors or New/Updated Risk Assessment . [ x] NO CHANGE IN RISK FACTORS Related to Suicide or Homicide. did not report any current suicidal/homicidal ideation, plan, or intent. [place] did not appear to be at imminent risk for suicide or homicide at this time and is considered sustainable at the current level of care. [ ] NEW/UPDATED RISK ASSESSMENT: -RELEVANT RISK AND PROTECTIVE FACTORS: -IDEATION: [ x] denied current suicidal or homicidal ideation, plan, or intent. [ ] Suicidal or homicidal ideation/behavior WAS identified: -CLINICAL JUDGMENT AND DISPOSITION: [ x] In consideration of relevant risk and protective factors, the did NOT appear to be at imminent risk for suicide or homicide at this time and IS sustainable at the current level of care. -Comments: [ ] [place] IS considered to be at INCREASED RISK for suicide or homicide based upon: -Actions/interventions taken to address risk and prevent harm include: -Emergency protocols initiated were: -Comments: ASSESSMENT MEASURES USED THIS SESSION: NOTE: Measures should be entered into Mental Health Geosciences Associate Professor if available and then entered into the chart. [ ] Measures/Scores: [ ] Results are located in Mental Health Diagnostic Study Note [x ] Measures not collected/administered this session: Rationale and plan for next administration: OR, Efforts made to increase measurement: [ ] Symptom review completed in Progress Towards Goals MEASURABLE TREATMENT GOALS FOR THIS EPISODE OF CARE: The following goals were developed using shared decision-making with input by the : #1. GOAL/OBJECTIVES FOR THIS EPISODE OF CARE: I have anxiety and I don't have any energy and motivation to do things. I want to get that under control and be able to do things with my kids. PROGRESS TOWARDS GOAL OR SYMPTOM REVIEW: #2. GOAL/OBJECTIVES FOR THIS EPISODE OF CARE: PROGRESS TOWARDS GOAL OR SYMPTOM REVIEW: COLLABORATIVE RECOMMENDATIONS/PLAN: 04/08/24 at 2PM for [facility] -Assigned Therapy Tasks: [ x] Collaboratively discussed outcomes related to assessment and treatment progress. Based on this discussion: [x ] No changes to plan of care. expressed agreement with therapy tasks and [id number] plan. [ ] Recommend changes to plan of care: Reviewed proposed changes. Discussed potential benefits, risks, and complications. agreed to proceed with changes. [ ] YES [ ] NO Comments: /cydney/ Tamiko Live LCSW Clinic Therapist, [facility] Signed: 03/25/2024 22:[address] [facility]
--- OUTSIDE RECORDS SUMMARY | 2025-01-15 07:41 | XMS_ITS | Encounter Summary ---
Author Name [facility] [place] [facility] [place] Address [address] [place] [address] Care Team Providers Care Remote Sensing Research Scientist Name Role Phone BROOKLYN ARAGON Primary Care Provider Amadoe diaz Insurance Providers: All historical and current [...] FOCUS FAMIL Y Oct 08, [phone] [id number] [phone] REISING,T YLER PATIENT CAREMARK ([id number])RX PRESCRIPT ION GEHA Oct 04, 2024 [id number] [phone] REISING,T YLER PATIENT CAREMARK FEP [id number] PRESCRIPT ION FEPRX Aug 16, 2019 [id number] [phone] REISING,T YLER PATIENT GEHA PREFERRED PROVIDER ORGANIZAT ION (PPO) GEHA STAND EVELYN Oct 04, 2024 [id number] [phone] REISING,T YLER PATIENT Selected Encounter This section includes the information on record at [place] for the Encounter. Date/Time Encounter Type Encounter Description Reason Provider Source Oct 10, 2024 05:20 AM EMERGENCY DEPT VISIT LOW [facility] EMERGENCY DEPT ICD-10-CM R10.10 Upper abdominal pain, unspecified ANA STEWARD MD IHE Encounter Template Text not used by [place] Assessments - Encounter Diagnoses This section includes the primary and secondary diagnoses documented for the Encounter. Date/Time Primary/Secondary Diagnosis Diagnosis Name Provider Source Oct 10, 2024 08:51 AM PRIMARY Upper abdominal pain, unspecified GARRET DAVID [facility] Plan of Treatment: Future Appointments (+ 6 months) and Future Tests (+/- 45 days) The Plan of Treatment section includes future care activities for the patient [facility] [place] [facility] This section includes future appointments and future orders which are active, pending or scheduled. Future Appointments This section includes appointments that were scheduled to occur 6 months from the date of the Encounter, up to a maximum of 20 appointments. The data comes from all [place] treatment facilities. Appointment Date/Time Appointment Type Appointme nt Facility Name Dec 24, 2024 08:30 AM AMBULATORY - REHAB MEDICIN E [facility] Jan 08, 2025 07:30 AM AMBULATORY - NONE [facility] Jan 19, 2025 08:30 AM AMBULATORY - REHAB MEDICIN E [facility] Apr 01, 2025 08:30 AM [facility] Lab Results: +/- 30 days of [...] Unit Interpretation Reference Range Specimen Type Comment Oct 10, 2024 06:52 AM [facility] URINALYSIS W/ CX REFLEX (STL-PB) URINE Specim en Type: URINE No comment entered. Ordering Provider: GARRET DAVID Report Released Date/Time: Oct 10, 2024 05:46 AM Reporting Lab: [facility] [address] [facility] [address] Performing Lab: [facility] [address] [facility] [place] [address] URINE COLOR Yellow Yellow U.BILIRUBIN Negative mg/dL Negative U.PH 6.0 5.0-8.0 URINE WBC/HPF <1 /[HPF] 0-5 URINE RBC/HPF 1 /[HPF] 0-5 APPEARANCE Clear Clear U.NITRITE Negative mg/dL Negative SQUAMOUS EPITH. 1 /[HPF] 0-5 MUCUS OCC /[LPF] Negative-Rare URN.GLUCOSE Normal mg/dL Negative URN.PROTEIN 50 mg/dL H URN.UROBILINOGEN Normal mg/dL Normal URN.BLOOD Negative mg/dL Negative-Trace URN.KETONES Negative mg/dL Negative-Trac e URN.LEUK.EST. Negative mg/dL Negative-Tr alexander URN.SPECIFIC GRAVITY 1.033 H Oct 10, 2024 05:34 AM [facility] LIPASE PLASMA Specimen Type: PLASM A Comment: No hemolysis noted. Ordering Provider: GARRET DAVID Report Released Date/Time: Oct 10, 2024 05:30 AM Reporting Lab: [address] [address] Performing Lab: [address] [address] LIPASE 32 U/L 8-78 Oct 10, 2024 05:34 AM [facility] COMPREHENSIVE METABOLIC PANEL PLASMA Specimen Type: PLASMA Comment: No hemolysis noted. Ordering Provider: GARRET DAVID Report Released Date/Time: Oct 10, 2024 05:30 AM Reporting Lab: [address] [address] Performing Lab: [address] [address] CREATININE 1.24 mg/dL 0.7-1.3 UREA NITROGEN 12.0 mg/dL 9.0-25.0 GLUCOSE 89 mg/dL 72-99 SODIUM 143 meq/L 136-145 POTASSIUM 3.5 meq/L 3.5-5 CHLORIDE 105 meq/L 98-107 CARBON DIOXIDE 29 meq/L 22-31 CALCIUM 9.0 mg/dL 8.4-10.4 PROTEIN 7.0 g/dL 6-8.6 ALBUMIN 4.3 g/dL 3.4-5 TOTAL BILIRUBIN 0.8 mg/dL 0.2-1.2 ALKALINE PHOSPHATASE 73 U/L 40-150 AST/SGOT 28 U/L 5-34 ALT/SGPT 27 U/L 8-40 EGFR (CKD-EPI 2020) 77.8 >60 Oct 10, 2024 05:34 AM [facility] CBC BLOOD Specimen Type: BLOOD No comment entered. Ordering Provider: GARRET DAVID Report Released Date/Time: Oct 10, 2024 05:30 AM Reporting Lab: [facility] [address] [address] Performing Lab: [facility] [address] [facility] [place] [address] WBC 8.0 10*3/uL 3.6-11.2 RBC 5.33 10*6/uL 4.10-5.70 HGB 15.3 g/dL 13.1-16.8 HCT 45.3 38.2-48.4 MCV 85.0 fL 80.0-100.0 MCH 28.7 pg 27.0-34.0 MCHC 33.8 g/dL 33.0-36.0 PLT 191 10*3/uL 150-400 MPV 9.3 fL 7.5-11.2 RDW 13.2 11.8-15.1 LYMPHOCYTES, AUTO % 35 MONOCYTES, AUTO % 8 NEUTROPHILS, AUTO % 52 EOSINOPHILS, AUTO % 4 BASOPHILS, AUTO % 1 LYMPHOCYTES, ABSOLUTE 2.77 10*3/uL 0.77- 4.50 MONOCYTES, ABSOLUTE 0.62 10*3/uL 0.19-0. 80 NEUTROPHILS, ABSOLUTE 4.13 10*3/uL 2.10- 8.00 EOSINOPHILS, ABSOLUTE 0.34 10*3/uL 0.00- 0.60 BASOPHILS, ABSOLUTE 0.09 10*3/uL 0.00-0. 20 Vital Signs: All taken on the encounter date This section contains inpatient and outpatient Vital Signs collected on the date of the Encounter. Date/Time Temperature Pulse Blood Pressure Respiratory Rate SP02 Pain Height Weight Body Mass Index Source Oct 10, 2024 08:42 AM 79 114/82 [facility] Oct 10, 2024 08:00 AM 75 122/77 [facility] Oct 10, 2024 07:30 AM 79 114/78 [facility] Oct 10, 2024 07:15 AM 80 123/81 16 98 [facility] Oct 10, 2024 06:00 AM 64 118/87 16 95 [facility] Social History: Smoking [...] 08, 2024 04:16 PM VA-TOBACCO FORMER USER [facility] Tobacco Use History This section includes a history of the smoking, or tobacco-related health factors, that were collected on or before the date of the Encounter. The data comes from the [place] facility where the Encounter took place. Date/Time Smoking Status/Tobacco Use Comment F acility Jan 08, 2024 04:16 PM VA-TOBACCO QUIT 15 YRS OR MORE [facility] Dec 18, 2023 09:41 AM VA-TOBACCO FORMER USER [facility] Dec 18, 2023 09:41 AM VA-TOBACCO QUIT 1 TO < 5 YRS [facility] Advance Directives: All historical and current [...] [facility] Radiology Reports: +/- 30 days of the [...] treatment facilities. Date/Time Radiology Report Provider Source Oct 10, 2024 06:[address] ABD PEL W/CONT & 3D: MERLE LAFLEUR [id number] -[id number] M Exm Date: OCT 10, 2024@06:54 Req Phys: GARRET DAVID Loc: [facility]-EMERGENCY DEPT 1ST SHIFT (R Img Loc: [facility]CT IMAGING [facility] Service: [address] [address] (Case [id number] COMPLETE) CT ABDOMEN AND PELVIS W/CONTRAST (CT Detailed) CPT:05414 Contrast Media : Non-ionic Iodinated Reason for Study: LUQ/epigastric pain s/p biliatry stent removal 2 days ago Clinical History: Responsible Attending: Jillian Attending Contact Number: ER Resident Contact Number: Allergies listed in CPRS chart: Patient has answered NKA Creatinine:CREATININE 1.39 H mg/dL 07/17/2024 13:37 /eGFR: STL EGFR (within one year). CREATININE 1.39 mg/dL H (07/17/24 13:37) Wt: 242.4 lb [109.95 kg] (08/07/2024 15:10) History of: Renal failure, chronic or acute renal disease: NO Report Status: Verified Date Reported: OCT 10, 2024 Date Verified: OCT 10, 2024 [employer] Carpenter E-Sig: Report: CT ABDOMEN AND PELVIS W/CONTRAST [PRINTSET] HISTORY: LUQ/epigastric pain s/p biliatry stent removal 2 days ago COMPARISON: 04/16/2024 TECHNIQUE: CT of the abdomen and pelvis with multiplanar reformats was performed at the local [place] facility. 1628 images were received by the [place] National Teleradiology Program (NTP) for interpretation. RADIATION DOSE (mGy*cm): 754 IV CONTRAST: Omnipaque 350, 100 mL FINDINGS: Lower Chest: Clear lung bases. Normal heart size. Liver: Cyst in the left hepatic lobe. Gallbladder/Biliary Tract: Status post cholecystectomy. Distal Esophagus, Stomach and Duodenum: Normal CT appearance. Spleen: Normal. Pancreas: Normal. Adrenal Glands: Normal. Kidneys: Normal in size. No hydronephrosis or nephrolithiasis. Ureters: Normal in caliber. No ureterolithiasis. Urinary Bladder: Underdistended bladder. Reproductive Organs: Mildly enlarged prostate. Bowel: Colonic diverticulosis. No bowel obstruction or inflammation. Normal appendix. Peritoneum/Retroperitoneum : Stable haziness of the mesentery about along the course of the superior mesenteric artery. Vessels: No significant atherosclerotic calcification. Lymph Nodes: Normal in size. Abdominal/Pelvic Wall: Small bilateral inguinal hernias containing fat. Small umbilical hernia containing fat. Bones: Central compression fracture deformities involving several vertebral bodies of the thoracic and lumbar spine, unchanged. Impression: 1. No acute abdominal abnormality. 2. Stable haziness of the mesentery along the course of the superior mesenteric artery which may represent either edema or sequela of mesenteric panniculitis. 3. Colonic diverticulosis. 4. Status post cholecystectomy. READING PHYSICIAN: Abbe Navarro -[phone] 10/10/2024 5:57 PST [facility] National Teleradiology Program [phone] (For Medical Practitioner Use Only) Attention Patients / Veterans: If you have questions or concerns about these test results, please contact your ordering provider or primary care team. Primary Interpreting Staff: RADIOLOGY,OUTSIDE SERVICE, Staff Physician / RADIOLOGY,OUTSIDE SERVICE [facility] Encounter Notes: All associated encounter notes This section contains the clinical notes associated to the Encounter. Date/Time Encounter Note(s) Provider Source Oct 10, 2024 07:08 AM RADIOLOGY PREPROCE DURE NOTE: LOCAL TITLE: RADIOLOGY CONTRAST ADMINISTRATION STANDARD TITLE: RADIOLOGY PREPROCEDURE NOTE DATE OF NOTE: OCT 10, 2024@07:08 ENTRY DATE: OCT 10, 2024@07:08:36 AUTHOR: TOMA MCNAMARA COSIGNER: URGENCY: STATUS: COMPLETED CT and General Radiology Contrast Questionnaire PATIENT NAME: MERLE LAFLEUR SSN: [id number] DATE: Sep EXAM: abd/pel Referring Physician: jillina TO BE COMPLETED PRIOR TO CONTRAST ADMINISTRATION: 1. Has the patient been instructed about the procedure? Yes 2. Is there a history of food or drug allergies? No 3. Is there history of complication with IV contrast? No 4. Is EFGR less than 30? No eGFR: STL EGFR (within one year). CREATININE 1.24 mg/dL (10/10/24 05:34) CREATININE 1.24 mg/dL 10/10/2024 05:34 EGFR (CKD-EPI 2020) 77.8 10/10/2024 05:34 5. Is EFGR result for inpatient within 24 hrs? Yes 6. Is EFGR result for outpatient with history of renal insufficiency within 7 days or for outpatient with history of normal renal function within 30 days? Yes 7. Is the patient's Medical Reconciliation list correct?Yes 8. Is the patient on metformin? No 9. Has the patient violated NPO requirements? No 10. Does the patient have a history of multiple myeloma? No 11. Does the patient have sickle cell anemia? No 12. Is the patient a breast-feeding female? No 13. Is there a chance the patient could be ? No 14. Does the patient have only one kidney? No 15. The patient has had no iodinated contrast in the past 24 hours? No 16. The exception for Diagnostic Imaging Service policy was none and this was discussed and Approve by : jillian for contrast administration. 17. If patient meets DIS policy criteria for high risk for contrast reaction or toxicity, Informed Consent has been obtained by: 18. The information was reviewed and meets Diagnostic Imaging Policy to administer contrast. Yes DIS Policy: 1,5,6,7,16,17,18 =Y or NA // 2,3,4,8,9,10,11,12,13,14,15 = N Name of Contrast: omnipaque 300 Lot#: [id number] Dosage: 100ml Injection Site: 20g kev /cydney/ TOMA MCNAMARA pediatric psychiatrist Signed: 10/10/2024 07:10 TOAM MCNAMARA [facility] Oct 10, 2024 05:33 AM PHYSICIAN EMERGENC Y DEPT NOTE: LOCAL TITLE: EMERGENCY DEPARTMENT STL STANDARD TITLE: PHYSICIAN EMERGENCY DEPT NOTE DATE OF NOTE: OCT 10, 2024@05:33 ENTRY DATE: OCT 10, 2024@05:33:16 AUTHOR: GARRET DAVID EXP COSIGNER: URGENCY: STATUS: COMPLETED EMERGENCY DEPARTMENT STL Has ADDENDA TRIAGE CHIEF COMPLAINT: HPI: Patient is a 34-year-old male and [employer] employee with history of depressive disorder, chronic pain syndrome, GERD, allergic rhinitis presents to the ER with 2 days of epigastric pain/left upper quadrant pain status post biliary duct stent removal 2 days ago at [facility] in [facility]. [place] tells me that April 2024 had a cholecystectomy at a [facility]. Subsequently, reports postoperatively he had multiple hospital visits for persistent pain. states while on family trip in [place] [facility] he presented to [facility] with painless jaundice and a biliary duct stent was placed in July 2024. states 2 days ago biliary duct stent was removed prior to onset of symptoms. reports pain, nausea, denies fever, denies chills, denies chest pain, denies shortness of breath. on duty at [employer] and last meal was fried rice from a American restaurant last night. Patient denies recent illness or known sick contacts. REVIEW OF SYSTEMS: See HPI for further [...] FOR 12 HOURS. Indication: FOR LOCAL ANESTHESIA 1) ONDANSETRON INJ,SOLN IVP ONE-TIME 4MG/2ML. I have reviewed the patient's medication list with the patient and/or his/her care-life enrichment manager. Any medication discrepancies have been resolved. Patient will be provided with an updated list of his/her medication(s). SURGICAL HISTORY: not pertinent FAMILY HISTORY: not pertinent SOCIAL HISTORY: Social History Main Topics: Smoking status: No data available for: Current Tobacco User Alcohol Use: not indorsed ____ Illicit Drug Use: not indorsed Sexual Activity: Other Topics of Concern: Child bearing age: N/A LMP: N/A possible: N/A ALLERGIES: Review of patient's allergies indicates: Patient has answered NKA PHYSICAL EXAM: VITAL SIGNS: 132/91 (10/10/2024 05:20)78 (10/10/2024 05:20)98% (08/07/2024 15:10)98.2 F [36.8 C] (10/10/2024 05:20)18 (10/10/2024 05:20)The OBJECT WEIGHT LAST 3 was NOT found...Contact IRM. MAThe OBJECT was NOT found...Contact IRM.PAIN ASSESSMENTThe OBJECT was NOT found...Contact IRM. Measurement DT PAIN 10/10/2024 05:20 5 CONSTITUTIONAL: No acute distress, Non-toxic appearance, pale appearance HENT: airway patent, dry mucous membranes EYES: Conj pink, sclera clear NECK: Normal range of motion, No tenderness, Supple, No stridor, No LAD. CARDIOVASCULAR: Normal heart rate, Normal rhythm, No murmurs, No rubs, No gallops. PULMONARY/CHEST: CTA bilaterally, thorax stable without tenderness ABDOMEN: Bowel sounds normal, Soft, flat, epigastric tenderness, LUQ tenderness, No bruit, No masses, No pulsatile masses BACK: No tenderness, No CVA tenderness : RECTAL: EXTREMITIES: Normal range of motion, Intact distal pulses, No edema, No tenderness NEUROLOGIC: Alert & oriented/reactive, Normal motor function, Normal gait, no ataxia, No focal deficits appreciated on cursory screening exam SKIN: Warm, Dry, No erythema, No rash LABS:CBC BLOOD STAT WC ONCE LB #[id number] Collection time: Oct 10, 2024@05:34 Test Name Result Units Range --------- ------ ----- ----- WBC 8.0 10*3/uL 3.6 - 11.2 RBC 5.33 10*6/uL 4.10 - 5.70 HGB 15.3 g/dL 13.1 - 16.8 HCT 45.3 % 38.2 - 48.4 MCV 85.0 fL 80.0 - 100.0 MCH 28.7 pg 27.0 - 34.0 MCHC 33.8 g/dL 33.0 - 36.0 RDW 13.2 % 11.8 - 15.1 PLT 191 10*3/uL 150 - 400 MPV 9.3 fL 7.5 - 11.2 NEUTROPHILS, AUTO % 52 % LYMPHOCYTES, AUTO % 35 % MONOCYTES, AUTO % 8 % EOSINOPHILS, AUTO % 4 % BASOPHILS, AUTO % 1 % NEUTROPHILS, ABSOLUTE 4.13 10*3/uL 2.10 - 8.00 LYMPHOCYTES, ABSOLUTE 2.77 10*3/uL 0.77 - 4.50 MONOCYTES, ABSOLUTE 0.62 10*3/uL 0.19 - 0.80 EOSINOPHILS, ABSOLUTE 0.34 10*3/uL 0.00 - 0.60 BASOPHILS, ABSOLUTE 0.09 10*3/uL 0.00 - 0.20 Comments: Ordering Provider: Garret David MD Report Released Date/Time: Oct 10, 2024@06:03 Performing Lab: [address] [CLIA# [id number]] [id number] [place] [address] COMPREHENSIVE METABOLIC PANEL GREEN LI/HEP BLD/PLAS PLASMA STAT WC ONCE LB #[id number] Collection time: Oct 10, 2024@05:34 Test Name Result Units Range --------- ------ ----- ----- LIPASE 32 U/L 8 - 78 SODIUM 143 mEq/L 136 - 145 POTASSIUM 3.5 mEq/L 3.5 - 5 CHLORIDE 105 mEq/L 98 - 107 UREA NITROGEN 12.0 mg/dL 9.0 - 25.0 CREATININE 1.24 mg/dL 0.7 - 1.3 CALCIUM 9.0 mg/dL 8.4 - 10.4 PROTEIN 7.0 g/dL 6 - 8.6 ALBUMIN 4.3 g/dL 3.4 - 5 ALKALINE PHOSPHATASE 73 U/L 40 - 150 ALT/SGPT 27 U/L 8 - 40 AST/SGOT 28 U/L 5 - 34 TOTAL BILIRUBIN 0.8 mg/dL 0.2 - 1.2 CARBON DIOXIDE 29 mEq/L 22 - 31 GLUCOSE 89 mg/dL 72 - 99 EGFR (CKD-EPI 2020) 77.8 Ref: >=60 Comments: No hemolysis noted. Ordering Provider: Garret David MD Report Released Date/Time: Oct 10, 2024@06:27 Performing Lab: [facility] [[facility]# [id number]] [address] [facility] [address] [place] [address] RADIOLOGY: CT abdomen pelvis pending ECG IMPRESSION: ED COURSE & MEDICAL DECISION MAKING: Nursing notes, medications, vital signs, allergies and pertinent labs & imaging studies reviewed (see chart for details) with lab results reviewed with patient and family/caregivers at bedside and radiology results reviewed with patient and any family/caregivers at bedside. Stable, alert, nontoxic, nonfocal with clinically apparent upper abdominal pain status post biliary duct stent removal 2 days ago at [facility] in [facility]. There is status post laparoscopic cholecystectomy in April 2024 subsequently had biliary duct stent in July 2024. had stent removed 2 days ago prior to onset of symptoms. uncomfortable, pale appearing with dry mucous membranes in ED. [place] was given IV fluids, antiemetics and pain medication. CBC, CMP, lipase both reassuring. Case signed out at shift change pending completion of workup and final disposition. Clinical information obtained from an independent historian. History obtained from or confirmed by: Clinical information obtained from patient ___spouse ___parent ___guardian ___family ___friend ___EMS ___other: Discussed with radiology regarding test interpretation: CT abdomen pelvis is pending I performed an independent interpretation of: ___EKG ___rhythm strip ___plain x-ray ___ultrasound _X__CT scan ___MRI ___other Patient's care impacted by: ___Diabetes ___Hypertension ___Cancer ___other: Patient's care is significantly limited by social determinants of health including, but not limited to: ___inadequate housing ___low income ___alcoholism and drug addiction in family ___problems related to primary support group ___unemployment ___problems with employment ___language barrier ___lack of transportation ___psychiatric disease ___other social determinants of health: External records reviewed: ___Inpatient records _X__office records _X__outpatient records ___prior outpatient labs ___prior outpatient radiology ___primary care record ___outside ED record ___PMD referral ___outside ER ___urgent care referral ___other: Management of the patient was discussed with: ___Hospitalist ___consultant ___behavioral health provider ___primary care provider ___other: The following testing was considered but ultimately was not performed after discussion with the patient/family: I considered prescription management with the following but ultimately did not prescribe: ___pain medication ___antiviral ___antibiotic ___other: I considered admission/ observation but decided upon discharge due to: Signed out at shift change pending completion of workup and final disposition MEDICAL CARE MANAGER SERVICE/TIME: MEDICATIONS GIVEN IN ED: [X] YES [ ] NO DIFFERENTIAL DIAGNOSES CONSIDERED: Gastritis, GERD, hyperbilirubinemia, CBD obstruction, transaminitis, pancreatitis, SBO, colitis, DECISION to ADMIT / DISCHARGE TIME: 6:33 AM DISPOSITION CONDITION:[X] Improved [ ] Unchanged [ ] Deteriorated CLINICAL IMPRESSION: 1 -abdominal pain 2 - 3 - DISCHARGE INSTRUCTIONS AND PATIENT-DIRECTED FOLLOW-UP RECOMMENDATIONS: DIET: regular ACTIVITY: ad hari NEW MEDS: MEDICATION RECONCILIATION: CONTINUE ALL PRESCRIBED MEDICATIONS DIRECTED EXCEPT: FOLLOW-UP WITH PRIMARY CIRCULAR KNITTER/SPECIALIST: routine in 1-2 weeks if not improving, sooner if worse RETURN TO EMERGENCY: if any worries or concerns ADDITIONAL SIGNATURE PCP: [X] YES [ ] NO [ ] not listed Active Outpatient Medications (including Supplies): Active Outpatient Medications Status 1) LIDOCAINE 5% PATCH APPLY 1 PATCH TO SKIN SITE ONCE A DAY ACTIVE APPLY PATCH AND PRESS FIRMLY FOR 10-15 SECONDS. KEEP ON FOR 12 HOURS THEN REMOVE PATCH FOR 12 HOURS. Indication: FOR LOCAL ANESTHESIA /es/ Garret David MD Staff ED Attending Physician Signed: 10/10/2024 06:41 Receipt Acknowledged By: 10/10/2024 08:28 /cydney/ ANA STEWARD MD Staff Physician 10/13/2024 10:55 /es/ MANUEL MÁRQUEZ MICROBIOLOGY SOIL SCIENTIST REGISTERED NURSE 10/26/2024 22:21 /es/ MARK TIAN NURSE PRACTITIONER 10/10/2024 ADDENDUM STATUS: COMPLETED CBC, CMP, lipase within normal limits. CT as follows: FINDINGS: Lower Chest: Clear lung bases. Normal heart size. Liver: Cyst in the left hepatic lobe. Gallbladder/Biliary Tract: Status post cholecystectomy. Distal Esophagus, Stomach and Duodenum: Normal CT appearance. Spleen: Normal. Pancreas: Normal. Adrenal Glands: Normal. Kidneys: Normal in size. No hydronephrosis or nephrolithiasis. Ureters: Normal in caliber. No ureterolithiasis. Urinary Bladder: Underdistended bladder. Reproductive Organs: Mildly enlarged prostate. Bowel: Colonic diverticulosis. No bowel obstruction or inflammation. Normal appendix. Peritoneum/Retroperitoneum: Stable haziness of the mesentery about along the course of the superior mesenteric artery. Vessels: No significant atherosclerotic calcification. Lymph Nodes: Normal in size. Abdominal/Pelvic Wall: Small bilateral inguinal hernias containing fat. Small umbilical hernia containing fat. Bones: Central compression fracture deformities involving several vertebral bodies of the thoracic and lumbar spine, unchanged. Impression: 1. No acute abdominal abnormality. 2. Stable haziness of the mesentery along the course of the superior mesenteric artery which may represent either edema or sequela of mesenteric panniculitis. 3. Colonic diverticulosis. 4. Status post cholecystectomy. Patient state his pain is currently gone. No nausea, feels well. Will discharge with return precuations and PMD follow-up. CLINICAL IMPRESSION: 1 -abdominal pain 2 - 3 - DISCHARGE INSTRUCTIONS AND PATIENT-DIRECTED FOLLOW-UP RECOMMENDATIONS: DIET: regular, bland, small portions. ACTIVITY: ad hari NEW MEDS: MEDICATION RECONCILIATION: CONTINUE ALL PRESCRIBED MEDICATIONS DIRECTED EXCEPT: FOLLOW-UP WITH PRIMARY CIRCULAR KNITTER/SPECIALIST: routine in 1-2 weeks if not improving, sooner if worse RETURN TO EMERGENCY: if any worries or concerns worsening pain, jaundice, fever, vomiting. ADDITIONAL SIGNATURE PCP: [X] YES [ ] NO [ ] not listed Active Outpatient Medications (including Supplies): Active Outpatient Medications Status = 1) LIDOCAINE 5% PATCH APPLY 1 PATCH TO SKIN SITE ONCE A DAY ACTIVE APPLY PATCH AND PRESS FIRMLY FOR 10-15 SECONDS. KEEP ON FOR 12 HOURS THEN REMOVE PATCH FOR 12 HOURS. Indication: FOR LOCAL ANESTHESIA /es/ ANA NICHELLE ADAN Staff Physician Signed: 10/10/2024 08:49 GARRET DAVID [facility] Oct 10, 2024 05:25 AM EMERGENCY DEPT TRI AGE NOTE: LOCAL TITLE: EMERGENCY DEPARTMENT TRIAGE NOTE STANDARD TITLE: EMERGENCY DEPT TRIAGE NOTE DATE OF NOTE: OCT 10, 2024@05:25 ENTRY DATE: OCT 10, 2024@05:25:52 AUTHOR: LOLI PINK EXP COSIGNER: URGENCY: STATUS: COMPLETED EMERGENCY DEPARTMENT TRIAGE NOTE Has ADDENDA Emergency Department/Urgent Care Center Triage Patient age:34 Sex in chart: MALE Mode of Arrival: Self Mode of Mobility: * Walk Chief Complaint: LUQ Abd Pain oncology consultant Note (Subjective/Objective): Pt arrives with complaint of LUQ abd pain and nausea x2 days. States 2 days ago he had a procedure at another facility where they removed a stent from his bile duct. States he has had pain and nausea ever since. States he wears a bullet proof vest for work and states that wearing it has exacerbated the pain. Has not taken any otc meds. Denies other complaints. No distress noted. Level of Consciousness (AVPU): Alert = Appears aware of and responsive to the environment on their own. Follows commands, opens eyes spontaneously, and tracks objects. Vital Signs: Temperature 98.2 F (36.8 C) Pulse 78 Respirations 18 Blood Pressure 132/91 Pulse Oximetry 98 Room Air Pain: DVPRS Scale Location: LUQ abd Defense and Veterans Pain Rating Scale (DVPRS): 5 Interrupts some activities Pain Score: 5 Patient's acceptable pain goal: Suicide Screen: [place] Suicide Severity Rating Scale (C-SSRS) screener 1. [...] required due to responses to other questions. Emergency Severity Index (NIRMAL) level: Level 3 Previously documented allergies: Patient has answered NKA Current Problems: 1) Depressive disorder 2) Sleep [...] rhinitis 18) Vitamin D deficiency 19) Anxiety /es/ LOLI PINK RN REGISTERED NURSE Signed: 10/10/2024 05:29 10/10/2024 ADDENDUM STATUS: COMPLETED 529 Assumed care of the pt into 101-2. Pt is resting calm and cooperative. Pt voices no needs. RRE&U. Pt VS monitored. Call light @ bedside. Awaiting provider, orders, results and POC update for dispo. NAD noted. 0535 #20 PAL established to the L AC w/ pos bld rtn and flushes without difficulty. Car c/d/i and without s/s of infiltration. Blood samples collected without complications and sent to lab. Sent V,G,Y and Blue. 0538 Provider bedside. 0540 Administered medication per provider order as reflected in BCMA, pt tolerated well. 4mg of zofran. /da CHAMBERS RN REGISTERED NURSE Signed: 10/10/2024 05:46 10/10/2024 ADDENDUM STATUS: COMPLETED 0552 Administered medication per provider order as reflected in BCMA, pt tolerated well. 4mg of morphine Initiated 1000ml NS bolus Pt made aware urine sample needed. Urinal at bedside, curtain closed for privacy. Call light in reach, pt on monitoring, no add'l needs at this time. Pt expresses pain medication has provided pain relief. /cydney/ RICHIE CHAMBERS RN REGISTERED NURSE Signed: 10/10/2024 06:06 10/10/2024 ADDENDUM STATUS: COMPLETED 0625 Pt resting in low locked stretcher with side rails up x2, and call light within reach. NAD observed, and pt remains on continuous hemodynamic monitoring. [address] VSS VERONICA /cydney/ RICHIE CHAMBERS RN REGISTERED NURSE Signed: 10/10/2024 06:47 10/10/2024 ADDENDUM STATUS: COMPLETED [address] Pt resting in low locked stretcher with side rails up x2, and call light within reach. NAD observed, and pt remains on continuous hemodynamic monitoring. [place] provided No add'l needs at this time Pending CT results /cydney/ RICHIE CHAMBERS RN REGISTERED NURSE Signed: 10/10/2024 07:25 10/10/2024 ADDENDUM STATUS: COMPLETED 729 Report to Tamiko NEWTON No questions or concerns at this time VSS VERONICA /cydney/ RICHIE CHAMBERS RN REGISTERED NURSE Signed: 10/10/2024 07:44 10/10/2024 ADDENDUM STATUS: COMPLETED 729 - report received from AMAN Mar. pt resting in bed with no needs at this time. bed rail up x 1 for pt safety. respirations even and non-labored. call light in reach, pt verbalized no needs at this time. this RN will continue to reassess. Blood Pressure: 114/78 Pulse: 79 Pulse Oximetry: 97% 0755 - pt reports he feels better at this time. 0800 - pt resting in bed with no needs at this time. bed rail up x 1 for pt safety. respirations even and non-labored. call light in reach, pt verbalized no needs at this time. this RN will continue to reassess. Blood Pressure: 122/77 Pulse: 75 Pulse Oximetry: 96% 0825 - Dr. Steward speaking with pt at this time. 0842 - dc instructions reviewed with pt who verbalized understanding. all questions answered. VS obtained. IV removed from left ac intact. bleeding controlled with pressure. pt ambulated from ED with a steady gait. Blood Pressure: 114/82 Pulse: 79 Pulse Oximetry: 97% /cydney/ TAMIKO STRICKLANDN RN REGISTERED NURSE Signed: 10/10/2024 08:54 LOLI PINK [facility]
--- OUTSIDE RECORDS SUMMARY | 2025-01-15 07:41 | XMS_ITS | Encounter Summary ---
Author Name [facility] Organization [facility] [place] Address [address] [place] [address] Care Team Providers Care Automotive Service Director Name Role Phone BROOKLYN ARAGON Primary Care [...] FOCUS FAMIL Y Oct 08, 2021 132 [id number] [phone] REISING,T YLER PATIENT CAREMARK ([id number])RX PRESCRIPT ION GEHA Oct 04, 2024 [id number] [phone] REISING,T YLER PATIENT CAREMARK FEP [id number] PRESCRIPT ION FEPRX Aug 16, 2019 [id number] [phone] REISING,T YLER PATIENT GEHA PREFERRED PROVIDER ORGANIZAT ION (PPO) GEHA STAND EVELYN Oct 04, 2024 [id number] REISING,T YLER PATIENT Selected Encounter This section includes the information on record at [place] for the Encounter. Date/Time Encounter Type Encounter Description Reason Provider Source Mar 04, 2024 11:00 AM OFFICE O/P EST MOD 30 MIN OCCUPATIONAL HEALTH ICD-10-CM Z02.89 Encounter for other administrative examinations HIRAM CARTAGENA Karen Encounter Template Text not used by [place] Assessments - Encounter Diagnoses This section includes the primary and secondary diagnoses documented for the Encounter. Date/Time Primary/Secondary Diagnosis Diagnosis Name Provider Source Mar 04, 2024 12:07 PM PRIMARY Encounter for other administrative examinations ZULEYKAWILLAROYA [facility] Mar 04, 2024 12:07 PM SECONDARY Encntr for general adult medical exam w/o abnormal findings [facility] Mar 04, 2024 12:07 PM SECONDARY Encounter for exam of eyes and vision w/o abnormal findings [facility] Plan of Treatment: Future Appointments (+ 6 months) and Future Tests (+/- 45 days) The Plan of Treatment section includes future care activities for the patient from all [place] treatmentfapeoples hospital. This section includes future appointments and future orders which are active, pending or scheduled. Future Appointments This section includes appointments that were scheduled to occur 6 months from the date of the Encounter, up to a maximum of 20 appointments. The data comes from all [place] treatment facilities. Appointment Date/Time Appointment Type Appointme nt Facility Name Mar 13, 2024 11:00 AM AMBULATORY - PSYCHIATRY [facility] Mar 20, 2024 09:00 AM AMBULATORY - PSYCHIATRY [facility] Mar 25, 2024 04:00 PM AMBULATORY - PSYCHIATRY [facility] Mar 25, 2024 06:00 PM AMBULATORY - MEDICINE [facility] Apr 08, 2024 02:00 PM AMBULATORY - PSYCHIATRY [facility] Apr 16, 2024 03:06 AM AMBULATORY - MEDICINE [facility] Apr 16, 2024 08:30 AM AMBULATORY - SURGERY . [facility] Apr 22, 2024 02:00 PM AMBULATORY - PSYCHIATRY [facility] Apr 22, 2024 03:30 PM AMBULATORY - MEDICINE [facility] Apr 27, 2024 02:45 PM AMBULATORY - SURGERY . [facility] May 01, 2024 11:00 AM AMBULATORY - NONE [facility] May 15, 2024 09:30 AM AMBULATORY - SURGERY . [facility] May 20, 2024 03:30 PM AMBULATORY - NONE [facility] May 28, 2024 02:00 PM AMBULATORY - PSYCHIATRY [facility] Jun 03, 2024 11:30 AM AMBULATORY - SURGERY . [facility] Jun 11, 2024 01:00 PM AMBULATORY - PSYCHIATRY [facility] Jun 29, 2024 03:00 PM AMBULATORY - NONE [facility] Jul 17, 2024 01:24 PM AMBULATORY - MEDICINE [facility] Jul 22, 2024 10:30 AM AMBULATORY - MEDICINE [facility] Jul 24, 2024 04:14 AM AMBULATORY - MEDICINE [facility] Active, Pending, and Scheduled Orders This section includes a listing of several types of active, pending, and scheduled orders, including clinic medications orders, diagnostic test orders, procedure orders and consult orders; where the start date of the order is 45 days before the date of the Encounter or 45 days after the date of theEncounter. The data comes from all [facility]. Test Date/Time Test Type Test Details Facility Name January 23, 2024 12:00 AM Laboratory - Chemistry Order HGA1C BLOOD [facility] January 23, 2024 12:00 AM Laboratory - Chemistry Order LIPID PANEL (STL) GREEN LI/HEP BLD/PLAS PLASMA [facility] January 23, 2024 12:00 AM Laboratory - Chemistry Order COMPREHENSIVE METABOLIC PANEL GREEN LI/HEP BLD/PLAS PLASMA [facility] January 23, 2024 12:00 AM Laboratory - Chemistry Order VITAMIN D, 25-HYDROXY GOLD/RED SST SERUM [facility] January 23, 2024 12:00 AM Laboratory - Chemistry Order B12 GOLD/RED SST SERUM [facility] January 23, 2024 12:00 AM Laboratory - Chemistry Order TSH (MA-PB) GOLD/RED SST SERUM [facility] Mar 06, 2024 12:00 AM Laboratory - Chemistry Order CBC (DIFF&PLT) BLOOD [facility] Mar 06, 2024 12:00 AM Laboratory - Chemistry Order COMPREHENSIVE METABOLIC PANEL BLOOD PLASMA [facility] Mar 06, 2024 12:00 AM Laboratory - Chemistry Order URINALYSIS URINE [facility] Mar 06, 2024 12:00 AM Laboratory - Chemistry Order LIPID PANEL BLOOD PLASMA [facility] Mar 06, 2024 12:00 AM Laboratory - Chemistry Order TSH-G,LC,J,T BLOOD PLASMA [facility] Mar 06, 2024 12:00 AM Laboratory - Chemistry Order HEMOGLOBIN %A1C PROFILE BLOOD [facility] Mar 06, 2024 12:00 AM Laboratory - Chemistry Order MICROALBUMINURIA(IVONNE) URINE [facility] Apr 16, 2024 11:39 AM Laboratory - Chemistry Order MRSA SURVL NARES DNA [facility] Apr 18, 2024 09:38 AM Laboratory - Chemistry Order MRSA SURVL NARES DNA [facility] Lab Results: +/- 30 days of the encounter This section includes the Chemistry and Hematology Lab Results on record with [place] for the patient. Radiology Reports and Pathology Reports are provided separately, in subsequent sections. Lab Results This section contains the Chemistry/Hematology Results that were resulted 30 days before or 30 daysafter the date of the Encounter. Date/Time Source Result Type Result - Unit Interpretation Reference Range Specimen Type Comment Mar 01, 2024 09:06 PM [facility] HGA1C BLOOD Specimen Type: BLOOD No comment entered. Ordering Provider: ROYA CARTAGENA Report Released Date/Time: Feb 24, 2024 04:42 PM Reporting Lab: [facility] [address] [address] Performing Lab: [facility] [address] [facility] [address] HGA1C 5.3 4.0-6.0 Mar 01, 2024 09:06 PM [facility] LIPID PANEL (STL) PLASMA Specimen Type: PLASM A Comment: No hemolysis noted. Ordering Provider: ROYA CARTAGENA Report Released Date/Time: Feb 24, 2024 04:42 PM Reporting Lab: [facility] [address] [address] Performing Lab: [address] [address] CHOLESTEROL 174 mg/dL 0-200 TRIGLYCERIDE 220 mg/dL H 0-150 CALCULATED LDL 98 mg/dL HDL(New) 32 mg/dL L >40 Mar 01, 2024 09:06 PM [facility] COMPREHENSIVE METABOLIC PANEL PLASMA Specimen Type: PLASMA Comment: No hemolysis noted. Ordering Provider: ROYA CARTAGENA Report Released Date/Time: Feb 24, 2024 04:42 PM Reporting Lab: [address] [address] Performing Lab: [address] [address] CREATININE 1.33 mg/dL H 0.7-1.3 UREA NITROGEN [...] 71.9 >60 Mar 01, 2024 09:06 PM [facility] URINALYSIS (STL-PB) URINE Specimen Type: URIN E No comment entered. Ordering Provider: ROYA CARTAGENA Report Released Date/Time: Feb 24, 2024 04:42 PM Reporting Lab: [address] [address] Performing Lab: [address] [address] URINE COLOR Light-Yellow Yellow U.BILIRUBIN Negative mg/dL [...] 1.025 1.005-1.029 Mar 01, 2024 09:06 PM [facility] CBC BLOOD Specimen Type: BLOOD No comment entered. Ordering Provider: ROYA CARTAGENA Report Released Date/Time: Feb 24, 2024 04:42 PM Reporting Lab: [address] [address] Performing Lab: [address] [address] WBC 7.7 10*3/uL 3.6-11.2 RBC 5.34 10*6/uL [...] Height Weight Body Mass Index Source Mar 04, 2024 07:22 AM 97.9 77 103/68 18 [address] [facility] Social History: Smoking Status (Most current) and Tobacco Use (All prior to encounter date) This section includes the most current, and the historical, smoking and tobacco- related health factors from the [place] facility where the Encounter took place. Current Smoking Status This section includes the most current smoking, or tobacco-related health factor, from the [place] facility where the Encounter took place. Date/Time Current Smoking Status Comment Facil ity Jan 08, 2024 04:16 PM VA-TOBACCO FORMER USER [facility] Tobacco Use History This section includes a history of the smoking, or tobacco-related health factors, that were collected on or before the date of the Encounter. The data comes from the [facility] where the Encounter took place. Date/Time Smoking Status/Tobacco Use Comment F acility Jan 08, 2024 04:16 PM VA-TOBACCO QUIT 15 YRS OR MORE [facility] Dec 18, 2023 09:41 AM VA-TOBACCO FORMER USER [facility] Dec 18, 2023 09:41 AM CO-TOBACCO QUIT 1 TO < 5 YRS [facility] Advance Directives: All historical and current Section Date Range: From patient's date of to the date document was created. This section includes ALL of a patient's completed or amended [place] Advance and Rescinded Directives. The entries below indicate that a directive exists for the patient, but an actual copy is not included with this document. The data comes from all [facility]. Date Advance Directives Provider Source Aug 28, [...] the Encounter. The data comes from all [place] treatment facilities. Date/Time Radiology Report Provider Source Mar 25, 2024 07:[address] THORACIC SPINE W/O CONT: MERLE LAFLEUR [id number] -1990 M Exm Date: MAR 25, 2024@19:39 Req Phys: JESSICA PATTEN Loc: [facility]ERGENCY DEPT 3RD SHIFT (R Img Loc: [facility]CT IMAGING [facility] Service: Unknown [facility] [address] [place] [address] (Case [id number] COMPLETE) CT THORACIC SPINE W/O CONT (CT Detailed) CPT:58179 Reason for Study: eval for fx/dislcoation Clinical History: Responsible Attending: dr jessica patten Attending Contact Number: [id number] Resident Contact Number: FELL while roller blading. [...] 25, 2024 Date Verified: MAR 25, 2024 Transportation [employer]istics Internship E-Sig: Report: CT THORACIC SPINE W/O CONT, CT LUMBAR SPINE W/O CONT HISTORY: eval for fx/dislcoation COMPARISON: No priors available. TECHNIQUE: The study was protocoled and supervised at the local [place] facility. 2807 images were subsequently received by the [place] National Teleradiology Program (NTP) for interpretation. Volumetric [...] fracture fragments. READING PHYSICIAN: Caio Rollins MD -[id number] 03/25/2024 18:30 PDT [facility] [place] [facility] [phone] (For Medical Practitioner Use Only) Attention Patients / Veterans: If you have questions or concerns about these test results, please contact your ordering provider or primary care team. Primary Interpreting Staff: RADIOLOGY,OUTSIDE SERVICE, Staff Physician / RADIOLOGY,OUTSIDE SERVICE [facility] Mar 25, 2024 07:[address] LUMBAR SPINE W/ O CONT: MERLE LAFLEUR [id number] -1990 M Exm Date: MAR 25, 2024@19:39 Req Phys: JESSICA PATTEN Loc: [facility]PT 3RD SHIFT (R Img Loc: [facility]CT IMAGING [facility] Service: Unknown [facility] [address] [place] [address] (Case [id number] COMPLETE) CT LUMBAR SPINE W/O CONT (CT Detailed) CPT:86587 Reason for Study: eval for fx/dislocation Clinical History: Responsible Attending: DR JESSICA PATTEN Attending Contact Number: [phone] Resident Contact Number: FELL while roller blading. [...] 25, 2024 Date Verified: MAR 25, 2024 [employer] Internship E-Sig: Report: CT THORACIC SPINE W/O CONT, CT LUMBAR SPINE W/O CONT HISTORY: eval for fx/dislcoation COMPARISON: No priors available. TECHNIQUE: The study was protocoled and supervised at the local [place] facility. 2807 images were subsequently received by the [place] National Teleradiology Program (NTP) for interpretation. Volumetric [...] fracture fragments. READING PHYSICIAN: Caio Rollins MD -[id number] 03/25/2024 18:30 PDT [facility] National Teleradiology Program [phone] (For Medical Practitioner Use Only) Attention Patients / Veterans: If you have questions or concerns about these test results, please contact your ordering provider or primary care team. Primary Interpreting Staff: RADIOLOGY,OUTSIDE SERVICE, Staff Physician / RADIOLOGY,OUTSIDE SERVICE [facility] Encounter Notes: All associated encounter notes This section contains the clinical notes associated to the Encounter. Date/Time Encounter Note(s) Provider Source Mar 04, 2024 12:12 PM OCCUPATIONAL MEDIC INE NOTE: LOCAL TITLE: EMPLOYEE HEALTH NOTE STANDARD TITLE: OCCUPATIONAL MEDICINE NOTE DATE OF NOTE: MAR 04, 2024@12:12 ENTRY DATE: MAR 04, 2024@12:12:52 AUTHOR: ROYA CARTAGENA COSIGNER: URGENCY: STATUS: COMPLETED You may not VIEW this COMPLETED EMPLOYEE HEALTH NOTE. ROYA CARTAGENA [facility] Mar 04, 2024 07:29 AM OCCUPATIONAL MEDIC INE NOTE: LOCAL TITLE: EMPLOYEE HEALTH NOTE STANDARD TITLE: OCCUPATIONAL MEDICINE NOTE DATE OF NOTE: MAR 04, 2024@07:29 ENTRY DATE: MAR 04, 2024@07:29:06 AUTHOR: ROYA CARTAGENA EXP COSIGNER: URGENCY: STATUS: COMPLETED You may not VIEW this COMPLETED EMPLOYEE HEALTH NOTE. ROYA CARTAGENA [facility] Mar 04, 2024 07:12 AM OCCUPATIONAL MEDIC INE NOTE: LOCAL TITLE: EMPLOYEE HEALTH NOTE STANDARD TITLE: OCCUPATIONAL MEDICINE NOTE DATE OF NOTE: MAR 04, 2024@07:12 ENTRY DATE: MAR 04, 2024@07:12:14 AUTHOR: STANFORD UMANZOR EXP CROWIGNER: URGENCY: STATUS: COMPLETED You may not VIEW this COMPLETED EMPLOYEE HEALTH NOTE. STANFORD UMANZOR [facility]
--- OUTSIDE RECORDS SUMMARY | 2025-01-15 07:41 | XMS_ITS | Encounter Summary ---
Author Name [facility] [place] Organization [place] Address [address] [place] [address] Care Team Providers Care Building Insulation Supervisor Name Role Phone BROOKLYN ARAGON Primary Care [...] FOCUS FAMIL Y Oct 08, 2021 132 [id number] [phone] REISING,T YLER PATIENT CAREMARK ([id number])RX PRESCRIPT ION GEHA Oct 04, 2024 [id number] [phone] REISING,T YLER PATIENT CAREMARK FEP [id number] PRESCRIPT ION FEPRX Aug 16, 2019 [id number] [phone] REISING,T YLER PATIENT GEHA PREFERRED PROVIDER ORGANIZAT ION (PPO) GEHA STAND EVELYN Oct 04, 2024 [id number] REISING,T YLER PATIENT Selected Encounter This section includes the information on record at [place] for the Encounter. Date/Time Encounter Type Encounter Description Reason Provider Source Feb 28, 2024 03:01 PM Outpatient Encounter CARDIOLOGY ICD-10-CM R07.9 Chest pain, unspecified [facility] Encounter Template Text not used by [place] Assessments - Encounter Diagnoses This section includes the primary and secondary diagnoses documented for the Encounter. Date/Time Primary/Secondary Diagnosis Diagnosis Name Provider Source Feb 28, 2024 03:18 PM PRIMARY Chest pain, unspecified LOUIS AHUJA [facility] Plan of Treatment: Future Appointments (+ 6 months) and Future Tests (+/- 45 days) The Plan of Treatment section includes future care activities for the patient from [facility] [place] [facility] This section includes future appointments and future orders which are active, pending or scheduled. Future Appointments This section includes appointments that were scheduled to occur 6 months from the date of the Encounter, up to a maximum of 20 appointments. The data comes from all [place] treatment facilities. Appointment Date/Time Appointment Type Appointme nt Facility Name Mar 03, 2024 02:00 PM AMBULATORY - PSYCHIATRY [facility] Mar 04, 2024 11:00 AM AMBULATORY - MEDICINE [facility] Mar 13, 2024 11:00 AM AMBULATORY - PSYCHIATRY [facility] Mar 20, 2024 09:00 AM AMBULATORY - PSYCHIATRY [facility] Mar 25, 2024 04:00 PM AMBULATORY - PSYCHIATRY [facility] Mar 25, 2024 06:00 PM AMBULATORY - MEDICINE [facility] Apr 08, 2024 02:00 PM AMBULATORY - PSYCHIATRY [facility] Apr 16, 2024 03:06 AM AMBULATORY - MEDICINE [facility] Apr 16, 2024 08:30 AM AMBULATORY - SURGERY [facility] Apr 22, 2024 02:00 PM AMBULATORY - PSYCHIATRY [facility] Apr 22, 2024 03:30 PM AMBULATORY - MEDICINE [facility] Apr 27, 2024 02:45 PM AMBULATORY - SURGERY [facility] May 01, 2024 11:00 AM AM[facility]ULAT[facility] - NONE [facility] May 15, 2024 09:30 AM AMBULATORY - SURGERY [facility] May 20, 2024 03:30 PM [facility] NONE [facility] May 28, 2024 02:00 PM AMBULATORY - PSYCHIATRY [facility] Jun 03, 2024 11:30 AM AMBULATORY - SURGERY . Doug [facility] Jun 11, 2024 01:00 PM AMBULATORY - PSYCHIATRY [facility] Jun 29, 2024 03:00 PM AMBULATORY - NONE [facility] Jul 17, 2024 01:24 PM AMBULATORY - MEDICINE [facility] Active, Pending, and Scheduled Orders This section includes a listing of several types of active, pending, and scheduled orders, including clinic medications orders, diagnostic test orders, procedure orders and consult orders; where the start date of the order is 45 days before the date of the Encounter or 45 days after the date of theEncounter. The data comes from all [facility] facilities. Test Date/Time Test Type Test Details Facility Name Jan 18, 2024 04:36 AM Laboratory - Chemistry Order CBC BLOOD STAT WC ONCE [facility] January 23, 2024 12:00 AM Laboratory - Chemistry Order HGA1C BLOOD SP [facility] January 23, 2024 12:00 AM Laboratory - Chemistry Order LIPID PANEL (STL) GREEN LI/HEP BLD/PLAS PLASMA SP [facility] January 23, 2024 12:00 AM Laboratory - Chemistry Order COMPREHENSIVE METABOLIC PANEL GREEN LI/HEP BLD/PLAS PLASMA SP [facility] January 23, 2024 12:00 AM Laboratory - Chemistry Order VITAMIN D, 25-HYDROXY GOLD/RED SST SERUM SP [facility] January 23, 2024 12:00 AM Laboratory - Chemistry Order B12 GOLD/RED SST SERUM [facility] January 23, 2024 12:00 AM Laboratory - Chemistry Order TSH (MA-PB) GOLD/RED SST SERUM [facility] Mar 06, 2024 12:00 AM Laboratory - Chemistry Order CBC (DIFF&PLT) BLOOD [facility] Mar 06, 2024 12:00 AM Laboratory - Chemistry Order COMPREHENSIVE METABOLIC PANEL BLOOD PLASMA SP [facility] Mar 06, 2024 12:00 AM Laboratory - Chemistry Order URINALYSIS URINE SP [facility] Mar 06, 2024 12:00 AM Laboratory - Chemistry Order LIPID PANEL BLOOD PLASMA SP [facility] Mar 06, 2024 12:00 AM Laboratory - Chemistry Order TSH-G,LC,J,T BLOOD PLASMA SP [facility] Mar 06, 2024 12:00 AM Laboratory - Chemistry Order HEMOGLOBIN %A1C PROFILE BLOOD SP [facility] Mar 06, 2024 12:00 AM Laboratory - Chemistry Order MICROALBUMINURIA(IVONNE) URINE SP [facility] Lab Results: +/- 30 days of the encounter This section includes the Chemistry and Hematology Lab Results on record with [place] for the patient. Radiology Reports and Pathology Reports are provided separately, in subsequent sections. Lab Results This section contains the Chemistry/Hematology Results that were resulted 30 days before or 30 daysafter the date of the Encounter. Date/Time Source Result Type Result - Unit Interpretation Reference Range Specimen Type Comment Mar 01, 2024 09:06 PM [facility] HGA1C BLOOD Specimen Type: BLOOD No comment entered. Ordering Provider: ROYA CARTAGENA Report Released Date/Time: Feb 24, 2024 04:42 PM Reporting Lab: [facility] [address] [address] Performing Lab: [facility] [address] [address] HGA1C 5.3 4.0-6.0 Mar 01, 2024 09:06 PM [facility] LIPID PANEL (STL) PLASMA Specimen Type: PLASM A Comment: No hemolysis noted. Ordering Provider: ROYA CARTAGENA Report Released Date/Time: Feb 24, 2024 04:42 PM Reporting Lab: [facility] [address] [address] Performing Lab: [facility] [address] [address] CHOLESTEROL 174 mg/dL 0-200 TRIGLYCERIDE 220 mg/dL H 0-150 CALCULATED LDL 98 mg/dL HDL(New) 32 mg/dL L >40 Mar 01, 2024 09:06 PM [facility] COMPREHENSIVE METABOLIC PANEL PLASMA Specimen Type: PLASMA Comment: No hemolysis noted. Ordering Provider: ROYA CARTAGENA Report Released Date/Time: Feb 24, 2024 04:42 PM Reporting Lab: [address] [address] Performing Lab: [address] [address] CREATININE 1.33 mg/dL H 0.7-1.3 UREA NITROGEN [...] >60 Mar 01, 2024 09:06 PM [facility] URINALYSIS (STL-PB) URINE Specimen Type: URIN E No comment entered. Ordering Provider: ROYA CARTAGENA Report Released Date/Time: Feb 24, 2024 04:42 PM Reporting Lab: [address] [address] Performing Lab: [address] [address] URINE COLOR Light-Yellow Yellow U.BILIRUBIN Negative mg/dL [...] 1.025 1.005-1.029 Mar 01, 2024 09:06 PM [facility] CBC BLOOD Specimen Type: BLOOD No comment entered. Ordering Provider: ROYA CARTAGENA Report Released Date/Time: Feb 24, 2024 04:42 PM Reporting Lab: [facility] [address] [address] Performing Lab: [facility] [address] [address] WBC 7.7 10*3/uL 3.6-11.2 RBC 5.34 10*6/uL [...] Pain Height Weight Body Mass Index Source Feb 28, 2024 07:22 PM 98 80 120/80 16 0 [facility] Social History: Smoking Status (Most current) and Tobacco Use (All prior to encounter date) This section includes the most current, and the historical, smoking and tobacco- related health factors from the [place] facility where the Encounter took place. Current Smoking Status This section includes the most current smoking, or tobacco-related health factor, from the [place] facility where the Encounter took place. Date/Time Current Smoking Status Comment Shameka martínez Jan 08, 2024 04:16 PM VA-TOBACCO FORMER USER [facility] Tobacco Use History This section includes a history of the smoking, or tobacco-related health factors, that were collected on or before the date of the Encounter. The data comes from the [place] facility where the Encounter took place. Date/Time Smoking Status/Tobacco Use Comment F acility Jan 08, 2024 04:16 PM VA-TOBACCO QUIT 15 YRS OR MORE [facility] Dec 18, 2023 09:41 AM VA-TOBACCO FORMER USER [facility] Dec 18, 2023 09:41 AM [place]-TOBACCO QUIT 1 TO < 5 YRS [facility] Advance Directives: All historical and current Section Date Range: From patient's date of to the date document was created. This section includes ALL of a patient's completed or amended [place] Advance and Rescinded Directives. The entries below indicate that a directive exists for the patient, but an actual copy is not included with this document. The data comes from all [facility]. Date Advance Directives Provider Source Aug 28, 2023 ADVANCE DIRECTIVE NO TIFICATION AND SCREENING SYLWIA SANTIAGO [facility] May 14, 2023 ADVANCE DIRECTIVE NO TIFICATION AND SCREENING SYLWIA SANTIAGO [facility] Radiology Reports: +/- 30 days [...] the Encounter. The data comes from all [place] treatment facilities. Date/Time Radiology Report Provider Source Mar 25, 2024 07:[address] LUMBAR SPINE W/ O CONT: MERLE LAFLEUR [id number] -1990 M Exm Date: MAR 25, 2024@19:39 Req Phys: JESSICA PATTEN Pat Loc: [facility]Y [facility] 3RD SHIFT (R Img Loc: [facility] Service: Unknown [facility], [address] [place] [address] (Case [id number] COMPLETE) CT LUMBAR SPINE W/O CONT (CT Detailed) CPT:74550 Reason for Study: eval for fx/dislocation Clinical History: Responsible Attending: DR JESSICA PATTEN Attending Contact Number: [phone] Resident Contact Number: FELL while roller blading. [...] 2024 Date Verified: MAR 25, 2024 Director Content Marketing E-Sig: Report: CT THORACIC SPINE W/O CONT, CT LUMBAR SPINE W/O CONT HISTORY: eval for fx/dislcoation COMPARISON: No priors available. TECHNIQUE: The study was protocoled and supervised at the local [place] facility. 2807 images were subsequently received by the [place] National Teleradiology Program (NTP) for interpretation. Volumetric [...] fracture fragments. READING PHYSICIAN: Caio Rollins MD -[id number] 03/25/2024 18:30 PDT [facility] National Teleradiology Program [phone] (For Medical Practitioner Use Only) Attention Patients / Veterans: If you have questions or concerns about these test results, please contact your ordering provider or primary care team. Primary Interpreting Staff: RADIOLOGY,OUTSIDE SERVICE, Staff Physician / RADIOLOGY,OUTSIDE SERVICE [facility] Mar 25, 2024 07:[address] THORACIC SPINE W/O CONT: MERLE LAFLEUR [id number] -1990 M Exm Date: MAR 25, 2024@19:39 Req Phys: JESSICA PATTEN Loc: [facility]PT 3RD SHIFT (R Img Loc: [facility] Service: Unknown [facility], [address] [place] [address] (Case [id number] COMPLETE) CT THORACIC SPINE W/O CONT (CT Detailed) CPT:11104 Reason for Study: eval for fx/dislcoation Clinical History: Responsible Attending: dr jessica patten Attending Contact Number: [phone] Resident Contact Number: FELL while roller blading. [...] 2024 Date Verified: MAR 25, 2024 Director Content Marketing E-Sig: Report: CT THORACIC SPINE W/O CONT, CT LUMBAR SPINE W/O CONT HISTORY: eval for fx/dislcoation COMPARISON: No priors available. TECHNIQUE: The study was protocoled and supervised at the local [place] facility. 2807 images were subsequently received by the [place] National Teleradiology Program (NTP) for interpretation. Volumetric [...] fracture fragments. READING PHYSICIAN: Caio Rollins MD -[id number] 03/25/2024 18:30 PDT [facility] National Teleradiology Program [phone] (For Medical Practitioner Use Only) Attention Patients / Veterans: If you have questions or concerns about these test results, please contact your ordering provider or primary care team. Primary Interpreting Staff: RADIOLOGY,OUTSIDE SERVICE, Staff Physician / RADIOLOGY,OUTSIDE SERVICE [facility] Encounter Notes: All associated encounter notes This section contains the clinical notes associated to the Encounter. Date/Time Encounter Note(s) Provider Source Feb 28, 2024 03:01 PM CONSULT: LOCAL TITLE: E-CONSULT CARDIOLOGY OUTPT ST STANDARD TITLE: CONSULT DATE OF NOTE: FEB 28, 2024@15:01 ENTRY DATE: FEB 28, 2024@15:01:36 AUTHOR: LOUIS AHUJA EXP COSIGNER: URGENCY: STATUS: COMPLETED The reason for consult: Preop risk assessment for lap ying I have reviewed pertinent CPRS documentation in the electronic medical record for this patient. The recommendations/findings offered are the result of information from the requesting provider and a chart review only. Cardiac HX/EVAL ECG 12/2022- NSR 79 STRESS 02/27/2024 CONCLUSIONS - Maximal exercise ECG stress test. [...] giving rise to coronary thrombotic occlusion and ACS/WY were elaborated. - Patient's questions and concerns addressed. PAST MEDICAL HISTORY 1) Depressive disorder 2) Sleep disorder 3) [...] rhinitis 18) Vitamin D deficiency 19) Anxiety ACTIVE OUTPATIENT MEDICATIONS Active Outpatient Medications (including Supplies): Active Outpatient Medications Status 1) BUPROPION HCL 150MG 24HR SA TAB TAKE ONE TABLET BY ACTIVE MOUTH EVERY MORNING FOR DEPRESSION SWALLOW WHOLE - DO NOT CRUSH OR CHEW. 2) CHLORHEXIDINE GLUCONATE 4% TOP LIQUID APPLY MODERATE ACTIVE AMOUNT TO AFFECTED AREA(S) DIRECTED FOR SKIN [...] TONGUE EVERY EIGHT(8) HOURS NEEDED FOR NAUSEA/VOMITING SELECTED RESULTS REVIEWED Recent lab testing reviewed IMPRESSION/PLAN [place] is a 33 yo with a past [...] DICK Owens Nurse Practitioner Signed: 02/28/2024 15:18 LOUIS AHUJA [facility]
--- OUTSIDE RECORDS SUMMARY | 2025-01-15 07:41 | XMS_ITS | Encounter Summary ---
Author Name Department [place] Organization [facility] Address [address] [place] [address] Care Team Providers Care Box Car Loader Name Role Phone BROOKLYN ARAGON Primary Care [...] FOCUS FAMIL Y Oct 08, 2021 132 [id number] [phone] REISING,T YLER PATIENT CAREMARK ([id number])RX PRESCRIPT ION GEHA Oct 04, 2024 [id number] [phone] REISING,T YLER PATIENT CAREMARK FEP [id number] PRESCRIPT ION FEPRX Aug 16, 2019 [id number] [phone] REISING,T YLER PATIENT GEHA PREFERRED PROVIDER ORGANIZAT ION (PPO) GEHA STAND EVELYN Oct 04, 2024 [id number] [phone] REISING,T YLER PATIENT Selected Encounter This section includes the information on record at [place] for the Encounter. Date/Time Encounter Type Encounter Description Reason Provider Source Aug 12, 2024 08:40 AM Outpatient Encounter GENERAL INTERNAL MEDICINE EVANS OROURKE Karen Encounter Template Text not used by [place] Plan of Treatment: Future Appointments (+ 6 months) and Future Tests (+/- 45 days) The Plan of Treatment section includes future care activities for the patient [facility] [place] [facility] This section includes future appointments and future orders which are active, pending or scheduled. Future Appointments This section includes appointments that were scheduled to occur 6 months from the date of the Encounter, up to a maximum of 20 appointments. The data comes from all [facility]. Appointment Date/Time Appointment Type Appointme nt Facility Name Oct 07, 2024 04:15 PM AMBULATORY - MEDICINE [facility] Oct 10, 2024 05:20 AM AMBULATORY - MEDICINE [facility] Dec 24, 2024 08:30 AM AMBULATORY - REHAB MEDICIN E [facility] Jan 08, 2025 07:30 AM AMBULATORY - NONE [facility] Jan 19, 2025 08:30 AM AMBULATORY - REHAB [facility] Active, Pending, and Scheduled Orders This section includes a listing of several types of active, pending, and scheduled orders, including clinic medications orders, diagnostic test orders, procedure orders and consult orders; where the start date of the order is 45 days before the date of the Encounter or 45 days after the date of theEncounter. The data comes from all [facility] hospital. Test Date/Time Test Type Test Details Facility Name Jun 29, 2024 12:00 AM Laboratory - Chemi stry Order VITAMIN D, 25-HYDROXY GOLD/RED SST SERUM SP [facility] Lab Results: +/- 30 days of the encounter This section includes the Chemistry and Hematology Lab Results on record with [place] for the patient. Radiology Reports and Pathology Reports are provided separately, in subsequent sections. Lab Results This section contains the Chemistry/Hematology Results that were resulted 30 days before or 30 daysafter the date of the Encounter. Date/Time Source Result Type Result - Unit Interpretation Reference Range Specimen Type Comment Jul 24, 2024 04:16 AM [facility] GLUCOSE,BLOOD-poct (ST) BLOOD Specimen Type: BLOOD Comment: Test Performed by: [id number] Meter #: [id number] Ordering Provider: LENNY WEBB Report Released Date/Time: Jul 24, 2024 04:27 AM Reporting Lab: [address] [address] Performing Lab: [address] [address] GLUCOSE,BLOOD-poct (STL) 84 mg/dL 72-99 Jul 17, 2024 03:46 PM [facility] URINALYSIS (L-PB) URINE Specimen Type: URIN E No comment entered. Ordering Provider: KHLOE HOLT Report Released Date/Time: Jul 17, 2024 01:35 PM Reporting Lab: [address] [address] Performing Lab: [address] [address] URINE COLOR Light-Yellow Yellow U.BILIRUBIN Negative mg/dL [...] 1.049 H Jul 17, 2024 01:37 PM [facility] LIPASE PLASMA Specimen Type: PLASM A Comment: No hemolysis noted. Ordering Provider: KHLOE HOLT Report Released Date/Time: Jul 17, 2024 01:35 PM Reporting Lab: [address] [address] Performing Lab: [address] [address] LIPASE 27 U/L 8-78 Jul 17, 2024 01:37 PM [facility] COMPREHENSIVE METABOLIC PANEL PLASMA Specimen Type: PLASMA Comment: No hemolysis noted. Ordering Provider: KHLOE HOLT Report Released Date/Time: Jul 17, 2024 01:35 PM Reporting Lab: [address] [address] Performing Lab: [address] [address] CREATININE 1.39 mg/dL H 0.7-1.3 UREA NITROGEN [...] 67.8 >60 Jul 17, 2024 01:37 PM [facility] CBC BLOOD Specimen Type: BLOOD No comment entered. Ordering Provider: KHLOE HOLT Report Released Date/Time: Jul 17, 2024 01:35 PM Reporting Lab: [address] [address] Performing Lab: [address] [address] WBC 6.2 10*3/uL 3.6-11.2 RBC 5.64 10*6/uL [...] 0.60 BASOPHILS, ABSOLUTE 0.05 10*3/uL 0.00-0. 20 Social History: Smoking Status (Most current) and Tobacco Use (All prior to encounter date) This section includes the most current, and the historical, smoking and tobacco- related health factors from the [place] facility where the Encounter took place. Current Smoking Status This section includes the most current smoking, or tobacco-related health factor, from the [place] facility where the Encounter took place. Date/Time Current Smoking Status Comment Shameka ity Jan 08, 2024 04:16 PM VA-TOBACCO FORMER USER [facility] Tobacco Use History This section includes a history of the smoking, or tobacco-related health factors, that were collected on or before the date of the Encounter. The data comes from the [place] facility where the Encounter took place. Date/Time Smoking Status/Tobacco Use Comment F accammy Jan 08, 2024 04:16 PM VA-TOBACCO QUIT 15 YRS OR MORE [facility] Dec 18, 2023 09:41 AM VA-TOBACCO FORMER USER [facility] Dec 18, 2023 09:41 AM VA-TOBACCO QUIT 1 TO < 5 YRS [facility] Advance Directives: All historical and current Section Date Range: From patient's date of to the date document was created. This section includes ALL of a patient's completed or amended [place] Advance and Rescinded Directives. The entries below indicate that a directive exists for the patient, but an actual copy is not included with this document. The data comes from all [facility]. Date Advance Directives Provider Source [...] the Encounter. The data comes from all [place] treatment facilities. Date/Time Radiology Report Provider Source Jul 17, 2024 03:[address] ABD PEL W/CONT & 3D: MERLE LAFLEUR [id number] -1990 M Exm Date: JUL 17, 2024@15:02 Req Phys: KHLOE HOTL Loc: [facility] 2ND SHIFT (R Img Loc: [facility] Service: Unknown [address] [address] (Case [id number] COMPLETE) CT ABDOMEN AND PELVIS W/CONTRAST (CT Detailed) CPT:53441 Contrast Media : Non-ionic Iodinated Reason for Study: RUQ pain Clinical History: Responsible Attending: Yoni Attending Contact Number: [phone] Resident Contact Number: Recent lap ying now [...] 17, 2024 Date Verified: JUL 17, 2024 Policy And Planning Manager E-Sig:/ES/BELIA CHRISTINE Report: Case [id number]. CT ABDOMEN AND PELVIS W/CONTRAST. Gastrointestinal contrast: [...] dilation. Primary Interpreting Staff: BELIA CHRISTINE MD (Policy And Planning Manager) /BELIA MATHEW [facility] Encounter Notes: All associated encounter notes This section contains the clinical notes associated to the Encounter. Date/Time Encounter Note(s) Provider Source Aug 12, 2024 08:40 AM NONVA NOTE: LOCAL TITLE: COMMUNITY CARE-CARE COORDINATION PLAN NOTE [address] STANDARD TITLE: NONVA NOTE DATE OF NOTE: AUG 12, 2024@08:40 ENTRY DATE: AUG 12, 2024@08:42:46 AUTHOR: EVANS OROURKE COSIGNER: URGENCY: STATUS: COMPLETED Community Care Consult: GI SURGICAL Consult No: [id number] [facility] Referral #: Chief Complaint: Pt recently underwent stent placement for biliary stricture, hyperbilirubinemia after finding obstruction - needs removalof bile duct stent Patient Admitted? No Level of Care Coordination Moderate Care Coordination was determined from: Chart Review Facility Community Care Office Contact Care Coordination Point of Contact: AMAN FALL Services: Basic Care Coordination Services Monitoring and coordination of Rehab/PT Services Direct communication to referring provider Care management, if appropriate Plan: Send to HS. Fax authorization to provider. Follow up with provider or for scheduling update. Follow up with after appointment. Retrieve records for visit. Send to scanner. Assess if any other care is needed /es/ EVANS STRICKLANDN RN REGISTERED NURSE Signed: 08/12/2024 08:44 EVANS OROURKE [facility]
--- OUTSIDE RECORDS SUMMARY | 2025-01-15 07:41 | XMS_ITS | Encounter Summary ---
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 Date/Time Encounter Type Encounter Description Reason Provider Source Apr 27, 2024 02:45 PM OFF/OP CNSLTJ NEW/EST MOD 40 NEUROSURGERY ICD-10-CM S32.030A Wedge compression fracture of third lumbar vertebra, MILDRED Lombardi IHKaren Encounter Template Text not used by [place] Assessments - Encounter Diagnoses This section includes the primary and secondary diagnoses documented for the Encounter. Date/Time Primary/Secondary Diagnosis Diagnosis Name Provider Source Apr 28, 2024 10:41 AM PRIMARY Wedge compression fracture of third lumbar vertebra, LUIS Lombardi [facility] Plan of Treatment: Future Appointments (+ 6 months) and Future Tests (+/- 45 days) The Plan of Treatment section includes future care activities for the patient from all [place] treatmentfast[facility]. This section includes future appointments and future orders which are active, pending or scheduled. Future Appointments This section includes appointments that were scheduled to occur 6 months from the date of the Encounter, up to a maximum of 20 appointments. The data comes from all [place] treatment facilities. Appointment Date/Time Appointment Type Appointme nt Facility Name May 01, 2024 11:00 AM AMBULATORY - NONE [facility] May 15, 2024 09:30 AM AMBULATORY - SURGERY [facility] May 20, 2024 03:30 PM AMBULATORY - NONE [facility] May 28, 2024 02:00 PM AMBULATORY - PSYCHIATRY [facility] Jun 03, 2024 11:30 AM AMBULATORY - SURGERY [facility] Jun 11, 2024 01:00 PM AMBULATORY - PSYCHIATRY [facility] Jun 29, 2024 03:00 PM AMBULATORY - NONE [facility] Jul 17, 2024 01:24 PM AMBULATORY - MEDICINE [facility] Jul 22, 2024 10:30 AM AMBULATORY - MEDICINE [facility] Jul 24, 2024 04:14 AM AMBULATORY - MEDICINE [facility] Aug 07, 2024 03:00 PM AMBULATORY - MEDICINE [facility] Oct 07, 2024 04:15 PM AMBULATORY - MEDICINE [facility] Oct 10, 2024 05:20 AM AMBULATORY - MEDICINE [facility] Active, Pending, and Scheduled Orders This section includes a listing of several types of active, pending, and scheduled orders, including clinic medications orders, diagnostic test orders, procedure orders and consult orders; where the start date of the order is 45 days before the date of the Encounter or 45 days after the date of theEncounter. The data comes from all [place] treatment facilities. Test Date/Time Test Type Test Details Facility Name Apr 16, 2024 11:39 AM Laboratory - Chemi stry Order MRSA SURVL NARES DNA NARES [facility] Apr 18, 2024 09:38 AM Laboratory - Chemi stry Order MRSA SURVL NARES DNA NARES [facility] Lab Results: +/- 30 days of the encounter This section includes the Chemistry and Hematology Lab Results on record with [place] for the patient. Radiology Reports and Pathology Reports are provided separately, in subsequent sections. Lab Results This section contains the Chemistry/Hematology Results that were resulted 30 days before or 30 daysafter the date of the Encounter. Date/Time Source Result Type Result - Unit Interpretation Reference Range Specimen Type Comment Apr 17, 2024 08:49 PM [facility] BASIC METABOLIC PANEL PLASMA Specimen Type: PLASMA Comment: No hemolysis noted. Ordering Provider: JAKUB DOAN V Report Released Date/Time: Apr 16, 2024 04:01 PM Reporting Lab: [address] [address] Performing Lab: [address] [address] CREATININE 1.22 mg/dL 0.7-1.3 UREA NITROGEN 12.4 mg/dL 9.0-25.0 GLUCOSE 131 mg/dL H 72-99 SODIUM 139 meq/L 136-145 POTASSIUM 4.6 meq/L 3.5-5 CHLORIDE 105 meq/L 98-107 CARBON DIOXIDE 23 meq/L 22-31 CALCIUM 9.2 mg/dL 8.4-10.4 EGFR (CKD-EPI 2020) 79.3 >60 Apr 17, 2024 08:49 PM [facility] CBC BLOOD Specimen Type: BLOOD No comment entered. Ordering Provider: JAKUB DOAN V Report Released Date/Time: Apr 16, 2024 04:01 PM Reporting Lab: [address] [address] Performing Lab: [place] [address] [facility] [address] WBC 11.4 10*3/uL H 3.6-11.2 RBC 5.43 [...] 0.00-0. 20 Apr 16, 2024 08:18 PM [facility] APTT PLASMA Specimen Type: PLASM A No comment entered. Ordering Provider: JAKUB DOAN V Report Released Date/Time: Apr 16, 2024 04:02 PM Reporting Lab: [place] [address] [facility] [address] Performing Lab: [address] [address] APTT 28.9 s 26.7-39.9 Apr 16, 2024 08:18 PM [facility] BASIC METABOLIC PANEL PLASMA Specimen Type: PL ASMA Comment: No hemolysis noted. Ordering Provider: JAKUB DOAN V Report Released Date/Time: Apr 16, 2024 04:01 PM Reporting Lab: [address] [address] Performing Lab: [address] [address] CREATININE 1.21 mg/dL 0.7-1.3 UREA NITROGEN 11.5 mg/dL 9.0-25.0 GLUCOSE 99 mg/dL 72-99 SODIUM 141 meq/L 136-145 POTASSIUM 3.8 meq/L 3.5-5 CHLORIDE 105 meq/L 98-107 CARBON DIOXIDE 25 meq/L 22-31 CALCIUM 9.2 mg/dL 8.4-10.4 EGFR (CKD-EPI 2020) 80.1 >60 Apr 16, 2024 08:18 PM [facility] PT/INR NEW (STL-MA) PLASMA Specimen Type: PLAS MA No comment entered. Ordering Provider: JAKUB DOAN V Report Released Date/Time: Apr 16, 2024 04:02 PM Reporting Lab: [address] [address] Performing Lab: [address] [address] PROTIME 12.3 s 9.4-12.5 INR VALUE 1.1 {INR} Apr 16, 2024 08:18 PM [facility] CBC BLOOD Specimen Type: BLOOD No comment entered. Ordering Provider: JAKUB DOAN V Report Released Date/Time: Apr 16, 2024 04:01 PM Reporting Lab: [address] [address] Performing Lab: [address] [address] WBC 6.8 10*3/uL 3.6-11.2 RBC 5.13 10*6/uL [...] 0.00-0. 20 Apr 16, 2024 03:25 AM [facility] LIPASE PLASMA Specimen Type: PLASM A Comment: No hemolysis noted. Ordering Provider: ADINA WALTON Report Released Date/Time: Apr 16, 2024 03:23 AM Reporting Lab: [address] [address] Performing Lab: [address] [address] LIPASE 36 U/L 8-78 Apr 16, 2024 03:25 AM [facility] COMPREHENSIVE METABOLIC PANEL PLASMA Specimen Type: PLASMA Comment: No hemolysis noted. Ordering Provider: ADINA WALTON Report Released Date/Time: Apr 16, 2024 03:23 AM Reporting Lab: [address] [address] Performing Lab: [address] [address] CREATININE 1.42 mg/dL H 0.7-1.3 UREA NITROGEN [...] 66.1 >60 Apr 16, 2024 03:25 AM [facility] GGT GAMMA-GT PLASMA Specimen Type: PLASM A Comment: No hemolysis noted. Ordering Provider: ADINA WALTON Report Released Date/Time: Apr 16, 2024 03:23 AM Reporting Lab: [facility] [address] [facility] [address] Performing Lab: [facility] [address] [facility] [address] GGT GAMMA-GT 25 [IU]/L 12-64 Apr 16, 2024 03:25 AM [facility] CBC BLOOD Specimen Type: BLOOD No comment entered. Ordering Provider: ADINA WALTON Report Released Date/Time: Apr 16, 2024 03:23 AM Reporting Lab: [facility] [address] [facility] [address] Performing Lab: [facility] [address] [facility] [address] WBC 8.8 10*3/uL 3.6-11.2 RBC 5.41 10*6/uL [...] Height Weight Body Mass Index Source Apr 27, 2024 02:41 PM 98 105 105/68 20 97 2 74 241 31 [facility] N Social History: Smoking Status (Most [...] 08, 2024 04:16 PM VA-TOBACCO FORMER USER [facility] Tobacco Use History This section includes a history of the smoking, or tobacco-related health factors, that were collected on or before the date of the Encounter. The data comes from the [place] facility where the Encounter took place. Date/Time Smoking Status/Tobacco Use Comment F acility Jan 08, 2024 04:16 PM VA-TOBACCO QUIT 15 YRS OR MORE [facility] Dec 18, 2023 09:41 AM VA-TOBACCO FORMER USER [facility] Dec 18, 2023 09:41 AM VA-TOBACCO QUIT 1 TO < 5 YRS [facility] Advance Directives: All historical and current Section Date Range: From patient's date of to the date document was created. This section includes ALL of a patient's completed or amended [place] Advance and Rescinded Directives. The entries below indicate that a directive exists for the patient, but an actual copy is not included with this document. The data comes from all [place] facilities. Date Advance Directives Provider Source Aug 28, 2023 ADVANCE DIRECTIVE NO TIFICATION AND SCREENING SYLWIA SANTIAGO [facility] May 14, 2023 ADVANCE DIRECTIVE NO TIFICATION AND SCREENING SYLWIA SANTIAGO [facility] Radiology Reports: +/- 30 days of [...] 20, 2024 02:[address] LUMBAR SPINE W/O CONT: MERLE LAFLEUR [id number] -1990 M Exm Date: MAY 20, 2024@14:53 Req Phys: SOBIA SORENSEN Loc: [facility]-NEUROSURGERY PAPER CONE MAKER 1 (Req'g Lo Img Loc: [facility]-CT IMAGING [facility] Service: [facility], [facility] [address] [place] [address] (Case [id number] COMPLETE) CT LUMBAR SPINE W/O CONT (CT Detailed) CPT:29267 Reason for Study: F/u L2, L3 compression fractyre Clinical History: Responsible Attending: Valarie Attending Contact Number: [phone] Resident Contact Number: Allergies listed in CPRS chart: Patient has answered NKA Creatinine: CREATININE 1.22 mg/dL 04/17/2024 20:00 /eGFR: STL EGFR (within one year). CREATININE 1.22 mg/dL (04/17/24 20:00) Wt: 241 lb [109.32 kg] (04/27/2024 14:41) History of: Renal failure, chronic or acute renal disease: NO Report Status: Verified Date Reported: MAY 21, 2024 Date Verified: MAY 21, 2024 Mill Stenciler E-Sig:/ES/Ronaldo Velasquez MD. FACR. Report: History: F/u [...] Interpreting Staff: Ronaldo Velasquez MD. FACR, Neuroradiologist (Mill Stenciler) /RONALDO ARZATE [facility] May 15, 2024 09:10 AM BONE DENSITY-P: MERLE LAFLEUR [id number] -1990 M Exm Date: MAY 15, 2024@09:10 Req Phys: SOBIA SORENSEN Kathy Loc: [facility]-NEUROSURGERY PAPER CONE MAKER 1 (Req'g Lo Img Loc: [facility]-BONE DENSITY Service: [facility] [address] [place] [address] (Case [id number] COMPLETE) NM BONE DENSITY(DXA), AXIAL SKELE(NM Detailed) CPT:93028 Reason for Study: L2, L3 comprerssion (Case [id number] COMPLETE) NM BONE DENSITY(DXA), APPENDICULA(NM Detailed) CPT:51007 Clinical History: BONE DENSITY Osteoporosis and Vertebral Fracture Screening Information Reason for exam: Compression fracture WT: 241 lb [109.32 kg] (04/27/2024 14:41) HT: 74 in [188.0 cm] (04/27/2024 14:41) Report Status: Verified Date Reported: MAY 15, 2024 Date Verified: MAY 15, 2024 Mill Stenciler E-Sig:/ES/Leticia Childs M.D. Report: Dual -Energy X-ray Absorptiometry (DXA) with Trabecular Bone Score (TBS) calculation Findings: Bone mineral density measurements of the forearm, proximal femur and lumbar spine with their appropriate regions of interest outlined are available for viewing in [facility] and Radiology Viewer. Lumbar spine: Measured [...] Staff: Leticia Childs M.D., NUCLEAR MEDICINE PHYSICIAN (Mill Stenciler) /LETICIA LOYA [facility] May 01, 2024 09:48 AM MRI SPINE LUMBAR W/O CONT: MERLE LAFLEUR [id number] -1990 M Exm Date: MAY 01, 2024@09:48 Req Phys: SOBIA SORENSEN Loc: [facility]-NEUROSURGERY PAPER CONE MAKER 1 (Req'g Lo Img Loc: [facility]-MAGNETIC RESONANCE IMAGING Service: Unknown [address] [address] (Case [id number] COMPLETE) MRI SPINE LUMBAR W/O CONT (MRI Detailed) CPT:16421 Reason for Study: Low back pain. L2, [...] Apr Responsible Attending: Valarie Attending Contact Number: [phone] Resident Contact Number: Does your patient have [...] 01, 2024 Date Verified: MAY 01, 2024 Mill Stenciler E-Sig:/ES/MONICA DUARTE Report: INDICATION: Low back pain. [...] above. Primary Interpreting Staff: MONICA DUARTE, RADIOLOGIST (Mill Stenciler) /MONICA ROJAS [facility] Apr 16, 2024 07:12 AM US ABDOMEN LIMITED W/BLOOD FLOW DOPPLER: MERLE LAFLEUR [id number] -1990 M Exm Date: APR 16, 2024@07:12 Req Phys: ADINA WALTON Loc: [facility]-EMERGENCY DEPT 1ST SHIFT (R Img Loc: [facility]-ULTRASOUND [facility] Service: Unknown [facility] [address] [place] [address] (Case [id number] COMPLETE) US ABDOMEN LTD, SINGLE ORG OR MORTEZA(US Detailed) CPT:44684 Reason for Study: eval acute cholecystitis (Case [id number] COMPLETE) US BLOOD FLOW ABD/RENAL (LTD) (US Detailed) CPT:15591 Clinical History: Organ to Image: Gallbladder Reason for exam: ho cholelithiasis. here with RUQ abdominal pain and nausea/emesis. Evaluate for acute cholecystitis Report Status: Verified Date Reported: APR 16, 2024 Date Verified: APR 16, 2024 Mill Stenciler E-Sig:/ES/JAIRO MCCOY Report: Case [id number], [id number]. US ABDOMEN LTD, SINGLE ORG OR QUADRANT, [...] findings. Primary Interpreting Staff: JAIRO MCCOY, RADIOLOGIST (Mill Stenciler) Primary Interpreting Resident: JOSE ROBERTO RAMSAY, Resident Physician /JAIRO NGUYEN [facility] Apr 16, 2024 04:[address] ABD PEL W/O & W CONT & 3D: MERLE LAFLEUR [id number] -1990 M Exm Date: APR 16, 2024@04:46 Req Phys: ADINA WALTON Loc: [facility]-EMERGENCY DEPT 1ST SHIFT (R Img Loc: [facility]-CT IMAGING [facility] Service: Unknown [facility] [address] [place] [address] (Case [id number] COMPLETE) CT ABDOMEN AND PELVIS W/CONTRAST (CT Detailed) CPT:41419 Contrast Media : Non-ionic Iodinated Reason for Study: evaluate for acute cholecystitis (Case [id number] COMPLETE) CT 3D RENDERING W INDEPENDENT WOR(CT Detailed) CPT:82588 Clinical History: Responsible Attending: jordon Attending Contact Number: va Resident Contact Number: taryn cholelithiasis, now ganesh CASILLAS abd pain, n/v. evaluate for acute cholecystitis [...] 16, 2024 Date Verified: APR 16, 2024 Mill Stenciler E-Sig:/ES/RANDALL JULES MD Report: Spiral axial imaging [...] Primary Interpreting Staff: RANDALL JULES MD, Radiologist (Mill Stenciler) /RANDALL BLANK [facility] Pathology Reports: +/- 30 days [...] seen, and no masses are grossly identified. Home Economics Teacher sections of the wall from the body [...] Performing Laboratory: Surgical Pathology Report [facility] By[facility] [address] [place] [address]# [id number] [facility] [address] [place] [address] $FTR - - - - - - [...] - - RAMSESMERLE OQUENDO STANDARD FORM 515 ID:[id number] SEX:M :1990 AGE: 34 LOC:APFEE PCP: Jaswinder Villafuerte MD /cydney/ CHELI MORALES Pathologist Signed: 04/21/2024 11:44 CHELI MORALES [facility] Encounter Notes: All associated encounter notes This section contains the clinical notes associated to the Encounter. Date/Time Encounter Note(s) Provider Source Apr 27, 2024 02:53 PM NEUROSURGERY CONSU LT: LOCAL TITLE: NEUROSURGERY CONSULT STL STANDARD TITLE: NEUROSURGERY CONSULT DATE OF NOTE: APR 27, 2024@14:53 ENTRY DATE: APR 27, 2024@14:53:13 AUTHOR: SOBIA SORENSENIGNER: URGENCY: STATUS: COMPLETED NEUROSURGERY CONSULT STL Has ADDENDA PRESENTATION: is a very pleasant 34 year old with a past medical history of depression, MARY, tennitis, GERD, hiatal hernia, pes planus, h/o TBI, migraines, allergic rhinitis, vitamin D deficiency, anxiety who presents today with lumbar compression fracture. [place] tells me he on March 25, he was roller blading with his kids, falling> he felt immediate low back pain. He also endorse R LE sciatic pain, but since resolved. denies any LE weakness or issues with his bowel or bladder. Since the original injury reports 70-90% improvement with pain. 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 BMI 31 Cervical spine: No rigidity. Normal range of movements. No paraspinal tenderness. Thoracic spine: Nontender. No paraspinal tenderness. Lumbar spine: Nontender. No paraspinal tenderness. Bilateral SI joints are nontender. No saddle paresthesia. LE: HIP MOVEMENTS: Within limits; no pain. R L Power Hip flex 5 5 Hip ext 5 5 Knee flex 5 5 Knee ext 5 5 Ankle flex 5 5 Ankle ext 5 5 Muscle bulk Normal Normal Tone Normal Normal SLR Negative Negative Reflexes Patellar 2+ 2+ Clonus - - Sensory Normal to light touch bilaterally Coordination Movements are normal. Gait: Posture is normal. Gait is steady with normal steps. Heel and toe walking are normal. IMAGING MRI: Report: CT THORACIC SPINE W/O CONT, CT [...] there is no retropulsion of fracture fragments. NEUROSURGERY IMPRESSION & PLAN: A: [place] presents today following a fall and subsequent L2 and L3 compression fractures. Since the fall reports nearly 90% improvement with pain. He is neuro-intact. Lumbar CT showed acute compression fractures of L2 and L3 vertebral bodies. We discussed the treatment options, including living [...] option for relieving the problem. P: 1. Repeat Lumabr CT next week 2. Check lumabr MRI 3. Bone density scan 4. Not wearing TLSO today, ok to wean 5. RTC arranged for f/u He was given my direct contact information and was instructed to call if any new or worsening symptoms. He verbalized understanding and is in agreement with the plan of care. This was seen in collaboration with Dr Lusi Llamas Please note that this dictation was completed with computer voice recognition software, often unanticipated grammatical, syntax and other interpretive errors are inadvertently transcribed by the computer software. Please disregard these errors /cydney/ SOBIA SORENSEN, MSN, MEAT PROCESSING CENTER MANAGER, NURSE PRACTITIONER, NEUROSURGERY Signed: 04/27/2024 16:25 Receipt Acknowledged By: 04/28/2024 10:42 /cydney/ LUIS LLAMAS MD PhD FAANS NS ATTENDING NEUROSURGEON 04/28/2024 ADDENDUM STATUS: COMPLETED Neurosurgery Attending Addendum: I have reviewed the patient's medical chart, the nurse practicioners' notes, and relevant imaging studies. I agree with the assessment and plan. /cydney/ LUIS LLAMAS MD PhD FAANS NS ATTENDING NEUROSURGEON Signed: 04/28/2024 10:40 SOBIA SORENSEN [facility]
--- OUTSIDE RECORDS SUMMARY | 2025-01-15 07:41 | XMS_ITS | Encounter Summary ---
Author Name [facility] [place] [facility] [place] Organization [place] Address [address] [place] [id number] Care Team Providers Care Service Center Manager Name Role Phone BROOKLYN ARAGON Primary Care Provider Unavailab le Insurance Providers: All historical and current Section [...] FOCUS FAMIL Y Oct 08, 2021 132 [id number] [phone] REISING,T YLER PATIENT CAREMARK ([id number])RX PRESCRIPT ION GEHA Oct 04, 2024 [id number] [phone] REISING,T YLER PATIENT CAREMARK FEP [id number] PRESCRIPT ION FEPRX Aug 16, 2019 [id number] [phone] REISING,T YLER PATIENT GEHA PREFERRED PROVIDER ORGANIZAT ION (PPO) GEHA STAND EVELYN Oct 04, 2024 [id number] [phone] REISING,T YLER PATIENT Selected Encounter This section includes the information on record at [place] for the Encounter. Date/Time Encounter Type Encounter Description Reason Pro vider Source IHE Encounter Template Text not used by [place] Advance Directives: All historical and current Section Date Range: From patient's date of to the date document was created. This section includes ALL of a patient's completed or amended [place] Advance and Rescinded Directives. The entries below indicate that a directive exists for the patient, but an actual copy is not included with this document. The data comes from all [place] facilities. Date Advance Directives Provider Source Aug 28, 2023 ADVANCE DIRECTIVE NO TIFICATION AND SCREENING SYLWIA SANTIAGO [facility] May 14, 2023 ADVANCE DIRECTIVE NO TIFICATION AND SCREENING SYLWIA SANTIAGO [facility]
--- OUTSIDE RECORDS SUMMARY | 2025-01-15 07:41 | XMS_ITS | Encounter Summary ---
Author Name [facility] [place] [facility] [place] Address [address] [place] [address] Care Team Providers Care Oil Well Shooter Name Role Phone BROOKLYN ARAGON Primary Care [...] FOCUS FAMIL Y Oct 08, 2021 132 [id number] [phone] REISING,T YLER PATIENT CAREMARK ([id number])RX PRESCRIPT ION GEHA Oct 04, 2024 [id number] [phone] REISING,T YLER PATIENT CAREMARK FEP [id number] PRESCRIPT ION FEPRX Aug 16, 2019 [id number] [phone] REISING,T YLER PATIENT GEHA PREFERRED PROVIDER ORGANIZAT ION (PPO) GEHA STAND EVELYN Oct 04, 2024 [id number] [phone] REISING,T YLER PATIENT Selected Encounter This section includes the information on record at [place] for the Encounter. Date/Time Encounter Type Encounter Description Reason Provider Source Feb 28, 2024 07:09 PM EMERGENCY DEPT VISIT [facility] EMERGENCY DEPT ICD-10-CM Z23 Encounter for immunization NGUYENALIRIOADDISON K IHE Encounter Template Text not used by [place] Assessments - Encounter Diagnoses This section includes the primary and secondary diagnoses documented for the Encounter. Date/Time Primary/Secondary Diagnosis Diagnosis Name Provider Source Feb 28, 2024 07:31 PM PRIMARY Encounter for immunization ADDISON NGUYEN [facility] Plan of Treatment: Future Appointments (+ 6 months) and Future Tests (+/- 45 days) The Plan of Treatment section includes future care activities for the patient from all [place] [facility] This section includes future appointments and future orders which are active, pending or scheduled. Future Appointments This section includes appointments that were scheduled to occur 6 months from the date of the Encounter, up to a maximum of 20 appointments. The data comes from all [place] treatment facilities. Appointment Date/Time Appointment Type Appointme nt Facility Name Mar 03, 2024 02:00 PM AMBULATORY - PSYCHIATRY [facility] Mar 04, 2024 11:00 AM AMBULATORY - MEDICINE [facility] Mar 13, 2024 11:00 AM AMBULATORY - PSYCHIATRY [facility] Mar 20, 2024 09:00 AM AMBULATORY - PSYCHIATRY [facility] Mar 25, 2024 04:00 PM AMBULATORY - PSYCHIATRY [facility] Mar 25, 2024 06:00 PM AMBULATORY - MEDICINE [facility] Apr 08, 2024 02:00 PM AMBULATORY - PSYCHIATRY [facility] Apr 16, 2024 03:06 AM AMBULATORY - MEDICINE [facility] Apr 16, 2024 08:30 AM [facility]GERY [facility] Apr 22, 2024 02:00 PM AMBULATORY - PSYCHIATRY [facility] Apr 22, 2024 03:30 PM AMBULATORY - MEDICINE [facility] Apr 27, 2024 02:45 PM AMBULATORY - SURGERY [facility] May 01, 2024 11:00 AM AMBULATORY - NONE [facility] May 15, 2024 09:30 AM [facility] May 20, 2024 03:30 PM AMBULATORY - NONE [facility] May 28, 2024 02:00 PM AMBULATORY - PSYCHIATRY [facility] Jun 03, 2024 11:30 AM AMBULATORY - SURGERY [facility] Jun 11, 2024 01:00 PM AMBULATORY - PSYCHIATRY [facility] Jun 29, 2024 03:00 PM AMBULATORY - NONE [facility] Jul 17, 2024 01:24 PM AMBULATORY - MEDICINE [facility] Active, Pending, and Scheduled Orders This section includes a listing of several types of active, pending, and scheduled orders, including clinic medications orders, diagnostic test orders, procedure orders and consult orders; where the start date of the order is 45 days before the date of the Encounter or 45 days after the date of theEncounter. The data comes from all [facility] facilities. Test Date/Time Test Type Test Details Facility Name Jan 18, 2024 04:36 AM Laboratory - Chemistry Order CBC BLOOD STAT WC ONCE [facility] January 23, 2024 12:00 AM Laboratory - Chemistry Order LIPID PANEL (STL) GREEN LI/HEP BLD/PLAS PLASMA SP [facility] January 23, 2024 12:00 AM Laboratory - Chemistry Order HGA1C BLOOD SP [facility] January 23, 2024 12:00 AM Laboratory - Chemistry Order COMPREHENSIVE METABOLIC PANEL GREEN LI/HEP BLD/PLAS PLASMA SP [facility] January 23, 2024 12:00 AM Laboratory - Chemistry Order VITAMIN D, 25-HYDROXY GOLD/RED SST SERUM SP [facility] January 23, 2024 12:00 AM Laboratory - Chemistry Order B12 GOLD/RED SST SERUM [facility] January 23, 2024 12:00 AM Laboratory - Chemistry Order TSH (MA-PB) GOLD/RED SST SERUM [facility] Mar 06, 2024 12:00 AM Laboratory - Chemistry Order CBC (DIFF&PLT) BLOOD [facility] Mar 06, 2024 12:00 AM Laboratory - Chemistry Order COMPREHENSIVE METABOLIC PANEL BLOOD PLASMA SP [facility] Mar 06, 2024 12:00 AM Laboratory - Chemistry Order URINALYSIS URINE SP [facility] Mar 06, 2024 12:00 AM Laboratory - Chemistry Order LIPID PANEL BLOOD PLASMA SP [facility] Mar 06, 2024 12:00 AM Laboratory - Chemistry Order TSH-G,LC,J,T BLOOD PLASMA SP [facility] Mar 06, 2024 12:00 AM Laboratory - Chemistry Order HEMOGLOBIN %A1C PROFILE BLOOD SP [facility] Mar 06, 2024 12:00 AM Laboratory - Chemistry Order MICROALBUMINURIA(IVONNE) URINE SP [facility] Lab Results: +/- 30 days of the encounter This section includes the Chemistry and Hematology Lab Results on record with [place] for the patient. Radiology Reports and Pathology Reports are provided separately, in subsequent sections. Lab Results This section contains the Chemistry/Hematology Results that were resulted 30 days before or 30 daysafter the date of the Encounter. Date/Time Source Result Type Result - Unit Interpretation Reference Range Specimen Type Comment Mar 01, 2024 09:06 PM [facility] HGA1C BLOOD Specimen Type: BLOOD No comment entered. Ordering Provider: ROYA CARTAGENA Report Released Date/Time: Feb 24, 2024 04:42 PM Reporting Lab: [facility] [address] [facility] [address] Performing Lab: [facility] [address] [facility] [address] HGA1C 5.3 4.0-6.0 Mar 01, 2024 09:06 PM [facility] LIPID PANEL (STL) PLASMA Specimen Type: PLASM A Comment: No hemolysis noted. Ordering Provider: ROYA CARTAGENA Report Released Date/Time: Feb 24, 2024 04:42 PM Reporting Lab: [facility] [address] [facility] [address] Performing Lab: [facility] [address] [facility] [address] CHOLESTEROL 174 mg/dL 0-200 TRIGLYCERIDE 220 mg/dL H 0-150 CALCULATED LDL 98 mg/dL HDL(New) 32 mg/dL L >40 Mar 01, 2024 09:06 PM [facility] COMPREHENSIVE METABOLIC PANEL PLASMA Specimen Type: PLASMA Comment: No hemolysis noted. Ordering Provider: ROYA CARTAGENA Report Released Date/Time: Feb 24, 2024 04:42 PM Reporting Lab: [address] [address] Performing Lab: [address] [address] CREATININE 1.33 mg/dL H 0.7-1.3 UREA NITROGEN [...] 71.9 >60 Mar 01, 2024 09:06 PM [facility] URINALYSIS (STL-PB) URINE Specimen Type: URIN E No comment entered. Ordering Provider: ROYA CARTAGENA Report Released Date/Time: Feb 24, 2024 04:42 PM Reporting Lab: [address] [address] Performing Lab: [address] [address] URINE COLOR Light-Yellow Yellow U.BILIRUBIN Negative mg/dL [...] 1.005-1.029 Mar 01, 2024 09:[address] [facility] CBC BLOOD Specimen Type: BLOOD No comment entered. Ordering Provider: ROYA CARTAGENA Report Released Date/Time: Feb 24, 2024 04:42 PM Reporting Lab: [facility] [address] [facility] [address] Performing Lab: [facility] [address] [facility] [address] WBC 7.7 10*3/uL 3.6-11.2 RBC 5.34 10*6/uL [...] 07:22 PM 98 80 120/80 16 0 [facility] Immunizations: All administered on the encounter date This section contains immunizations associated to the Encounter. Immunization Series Date Issued Administered By Site Reaction Lot Number CVX Code Drug Circus Agent Comment(s) Source TDAP Feb 28, 2024 VAHID BENAVIDEZ LEFT DELTO ID [id number] SANOFI PASTEUR Booster for Series, SIMON Wilburn AT [facility] Social History: Smoking Status (Most current) and Tobacco Use (All prior to encounter date) This section includes the most current, and the historical, smoking and tobacco- related health factors from the [place] facility where the Encounter took place. Current Smoking Status This section includes the most current smoking, or tobacco-related health factor, from the [place] facility where the Encounter took place. Date/Time Current Smoking Status Comment Facil ity Jan 08, 2024 04:16 PM VA-TOBACCO FORMER USER [facility] Tobacco Use History This section includes a history of the smoking, or tobacco-related health factors, that were collected on or before the date of the Encounter. The data comes from the [facility] where the Encounter took place. Date/Time Smoking Status/Tobacco Use Comment F acility Jan 08, 2024 04:16 PM [place]-TO[place]AC[place] QUIT 15 YRS OR MORE [facility] Dec 18, 2023 09:41 AM VA-TOBACCO FORMER USER [facility] Dec 18, 2023 09:41 AM VA-TOBACCO QUIT 1 TO < 5 YRS [facility] Advance Directives: All historical and current Section Date Range: From patient's date of to the date document was created. This section includes ALL of a patient's completed or amended [place] Advance and Rescinded Directives. The entries below indicate that a directive exists for the patient, but an actual copy is not included with this document. The data comes from all [facility]. Date Advance Directives Provider Source Aug 28, 2023 ADVANCE DIRECTIVE NO TIFICATION AND SCREENING SYLWIA SANTIAGO [facility] May 14, 2023 ADVANCE DIRECTIVE NO TIFICATION AND SCREENING SYLWIA SANTIAGO [facility] Radiology Reports: +/- 30 days of the [...] the Encounter. The data comes from all [place] treatment facilities. Date/Time Radiology Report Provider Source Mar 25, 2024 07:[address] THORACIC SPINE W/O CONT: MERLE LAFLEUR [id number] -1990 M Exm Date: MAR 25, 2024@19:39 Req Phys: JESSICA PATTEN Loc: [facility]-EMERGENCY DEPT 3RD SHIFT (R Img Loc: [facility]-CT IMAGING [facility] Service: Unknown [facility] [place] [address] (Case [id number] COMPLETE) CT THORACIC SPINE W/O CONT (CT Detailed) CPT:04796 Reason for Study: eval for fx/dislcoation Clinical History: Responsible Attending: dr jessica patten Attending Contact Number: [phone] Resident Contact Number: FELL while roller blading. [...] 25, 2024 Date Verified: MAR 25, 2024 Rn Clinician E-Sig: Report: CT THORACIC SPINE W/O CONT, CT LUMBAR SPINE W/O CONT HISTORY: eval for fx/dislcoation COMPARISON: No priors available. TECHNIQUE: The study was protocoled and supervised at the local [place] facility. 2807 images were subsequently received by the [place] National Teleradiology Program (NTP) for interpretation. Volumetric [...] fracture fragments. READING PHYSICIAN: Caio Rollins MD -[id number] 03/25/2024 18:30 PDT [facility] [phone] (For Medical Practitioner Use Only) Attention Patients / Veterans: If you have questions or concerns about these test results, please contact your ordering provider or primary care team. Primary Interpreting Staff: RADIOLOGY,OUTSIDE SERVICE, Staff Physician / RADIOLOGY,OUTSIDE SERVICE [facility] Mar 25, 2024 07:[address] LUMBAR SPINE W/ O CONT: RAMSESMERLE OQUENDO JOLENE [id number] -1990 M Exm Date: MAR 25, 2024@19:39 Req Phys: JESSICA PATTEN Loc: [facility]EMERGENCY DEPT 3RD SHIFT (R Img Loc: [facility] IMAGING [facility] Service: [address] [address] (Case [id number] COMPLETE) CT LUMBAR SPINE W/O CONT (CT Detailed) CPT:58649 Reason for Study: eval for fx/dislocation Clinical History: Responsible Attending: DR JESSICA PATTEN Attending Contact Number: [phone] Resident Contact Number: FELL while roller blading. [...] 25, 2024 Date Verified: MAR 25, 2024 Rn Clinician E-Sig: Report: CT THORACIC SPINE W/O CONT, CT LUMBAR SPINE W/O CONT HISTORY: eval for fx/dislcoation COMPARISON: No priors available. TECHNIQUE: The study was protocoled and supervised at the local [place] facility. 2807 images were subsequently received by the [place] National Teleradiology Program (NTP) for interpretation. Volumetric [...] fracture fragments. READING PHYSICIAN: Caio Rollins MD -[id number] 03/25/2024 18:30 PDT [facility] National [facility]adiology Program [phone] (For Medical Practitioner Use Only) Attention Patients / Veterans: If you have questions or concerns about these test results, please contact your ordering provider or primary care team. Primary Interpreting Staff: RADIOLOGY,OUTSIDE SERVICE, Staff Physician / RADIOLOGY,OUTSIDE SERVICE [facility] Encounter Notes: All associated encounter notes This section contains the clinical notes associated to the Encounter. Date/Time Encounter Note(s) Provider Source Feb 28, 2024 07:28 PM EMERGENCY DEPT DIS CHARGE NOTE: LOCAL TITLE: DISCHARGE INSTRUCTIONS EMERGENCY DEPT [facility] STANDARD TITLE: EMERGENCY DEPT DISCHARGE NOTE DATE OF NOTE: FEB 28, 2024@19:28:36 ENTRY DATE: FEB 28, 2024@19:28:36 AUTHOR: ADDISON NGUYEN COSIGNER: URGENCY: STATUS: COMPLETED DISCHARGE INSTRUCTIONS IMPORTANT: [...] Department visit. You were treated today by Kimberlee, . YOU ARE THE MOST IMPORTANT FACTOR IN YOUR RECOVERY. Follow the provided instructions carefully. CONTACT INFORMATION: -Hospital Information: [facility] - [address] [place] [address]. [phone] -CRISIS Line: If you are having thoughts of harming yourself or thoughts of suicide immediately call the [place] Crisis line at [phone] -Nurse Line: If you have any questions regarding your health or symptoms please contact the nurse line at [phone] -General Help: Any questions or concerns, call [place] Clinical Contact Center - [phone]. Ask to speak to a doctor Saturday thru Saturday 8a-4:30p VISIT NOTES: If you had special tests, such as EKG's or X-rays, we will review them again within 24 hours. We will call you if there are any new suggestions. FOLLOW APPOINTMENT INFORMATION: It is important that you keep your scheduled appointments. If you have questions, or if you need to Make, Change or Cancel an Appointment or relay a message to your Primary Care or Specialty Care Provider please call [phone]. If you are not already established with a [place] primary lawn care specialist, an administrative request has been placed to offer that to you. You will recieve a notification for follow-up to be connected with a health care provider. Future Appointments 03/04/2024 at 11:00am [facility]EMPLOYEE HL[facility] NW PHYSICAL 03/05/2024 at 9:30am [facility]PACT PHONE E4 PCP 1 03/19/2024 at 9:30am [facility]-PRE-OP EVAL NURSING AM 04/16/2024 at 2:00pm [facility]- CHIRO CONSULT 8TH FLR 08/25/2024 at 10:30am [facility]-PACT E4 PCP MEDICATION INFORMATION: Take your medicines as prescribed. If you do not understand any of your medicines, please ask questions. If you think you may not be able to flower buncher or picker your medicine, please let us know so [...] List reviewed. Pending Medications [none] Active Medications BUPROPION HCL 150MG 24HR SA TAB TAKE ONE TABLET BY MOUTH EVERY MORNING FOR DEPRESSION SWALLOW WHOLE - DO NOT CRUSH OR CHEW. CHLORHEXIDINE GLUCONATE 4% TOP LIQUID APPLY MODERATE AMOUNT TO AFFECTED AREA(S) DIRECTED FOR SKIN DISINFECTION (TOPICAL USE ONLY) AVOID CONTACT WITH EYES. WASH BODY WITH SOAP IN THE SHOWER FROM NECK DOWN (NOT ON FACE OR PRIVATES) THE NIGHT BEFORE SURGERY AND THE MORNING OF SURGERY. OMEPRAZOLE 40MG EC CAP TAKE ONE CAPSULE BY MOUTH EVERY MORNING BEFORE A MEAL FOR ACID REFLUX. TAKE 30 MINUTES PRIOR TO FOOD. ONDANSETRON 4MG ORAL DISINTEGRATING TAB TAKE ONE TABLET UNDER THE TONGUE EVERY EIGHT(8) HOURS NEEDED FOR NAUSEA/VOMITING Medications Medications in the last 90 days [none] This Information Is About Your Illness and Diagnosis NORMAL HEALTH SCREENING Your exam and tests were normal for a person of your age. It is important to have regular exams with your health care provider even if you feel healthy. Some reasons for regular exams include: -To assess your future risk of certain health conditions -To screen for medical conditions, specifically those that do not have symptoms (e.g. high blood pressure, heart disease, or cancer) -To encourage and teach about healthy lifestyles -To get to know you and answer any questions that you may have You may return to your normal activities and routines. Contact your health care provider if you have any further questions or concerns. This is Information About Your Medications. TETANUS, DIPHTHERIA, AND PERTUSSIS VACCINE (Tdap) Information provided by the U.S. Department of Health & Human Services Centers for Disease Control and Prevention (CDC) Vaccine Information Statement - Tdap (Tetanus, Diphtheria, Pertussis) Vaccine 04/28/2021 Tdap (Tetanus, Diphtheria, Pertussis) Vaccine: What you need to know Why get vaccinated? Tdap vaccine can prevent tetanus, diphtheria, and pertussis. Diphtheria and pertussis spread from person to person. Tetanus enters the body through cuts or wounds. -TETANUS (T) causes painful stiffening of the muscles. Tetanus can lead to serious health problems, including being unable to open the mouth, having trouble swallowing and breathing, or . -DIPHTHERIA (D) can lead to difficulty breathing, heart failure, paralysis, or . -PERTUSSIS (aP), also known as whooping cough, can cause uncontrollable, violent coughing which makes it hard to breathe, eat, or drink. Pertussis can be extremely serious in babies and young children, causing pneumonia, convulsions, brain damage, or . In teens and adults, it can cause weight loss, loss of bladder control, passing out, and rib fractures from severe coughing. Tdap vaccine Tdap is only for children 7 years and older, adolescents, and adults. -Adolescents should receive a single dose of Tdap, preferably at age 11 or 12 years. - women should get a dose of Tdap during every , preferably during the early part of the third trimester, to help protect the from pertussis. Infants are most at risk for severe, life-threatening complications from pertussis. -Adults who have never received Tdap should get a dose of Tdap. -Also, adults should receive a booster dose of either Tdap or Td (a different vaccine that protects against tetanus and diphtheria but not pertussis) every 10 years, or after 5 years in the case of a severe and dirty wound or burn. Tdap may be given at the same time as other vaccines. Talk with your health care provider Tell your vaccine provider if the person getting the vaccine: -Has had an allergic reaction after a previous dose of any vaccine that protects against tetanus, diphtheria, or pertussis, or has any severe, life-threatening allergies. -Has had a coma, decreased level of consciousness, or prolonged seizures within 7 days after a previous dose of any pertussis vaccine (DTP, DTaP, or Tdap). -Has seizures or another nervous system problem. -Has ever had Guillain-Guerrero Syndrome (also called GBS). -Has had severe pain or swelling after a previous dose of any vaccine that protects against tetanus or diphtheria. In some cases, your health care provider may decide to postpone Tdap vaccination to a future visit. People with minor illnesses, such as a cold, may be vaccinated. People who are moderately or severely ill should usually wait until they recover before getting Tdap vaccine. Your health care provider can give you more information. Risks of a vaccine reaction -Pain, redness, or swelling where the shot was given, mild fever, headache, feeling tired, and nausea, vomiting, diarrhea, or stomachache sometimes happen after Tdap vaccine. People sometimes faint after medical procedures, including vaccination. Tell your provider if you feel dizzy or have vision changes or ringing in the ears. As with any medicine, there is a very remote chance of a vaccine causing a severe allergic reaction, other serious injury, or . What if there is a serious problem? An allergic reaction could occur after the vaccinated person leaves the clinic. If you see signs of a severe allergic reaction (hives, swelling of the face and throat, difficulty breathing, a fast heartbeat, dizziness, or weakness), call and get the person to the nearest hospital. For other signs that concern you, call your health care provider. Adverse reactions should be reported to the Vaccine Adverse Event Reporting System (VAERS). Your health care provider will usually file this report, or you can do it yourself. Visit the VAERS website at www.vaers.[facility].gov or call . VAERS is only for reporting reactions, and VAERS staff do not give medical advice. The National Vaccine Injury Compensation Program The National Vaccine Injury Compensation Program (VICP) is a federal program that was created to compensate people who may have been injured by certain vaccines. Claims regarding alleged injury or due to vaccination have a time limit for filing, which may be as short as two years. Visit the VICP website at www.[facility].gov/vaccinecompens ation or call to learn about the program and about filing a claim. How can I learn more? -Ask your healthcare provider. -Call your local or state health department. -Visit the website of the Food and Drug Administration (FDA) for vaccine package inserts and additional information at www.fda.gov/vaccines-blood- biologics/vaccines. -Contact the Centers for Disease Control and Prevention (CDC): -Call (2-610-LUL-INFO). -Visit CDC's website at www.cdc.gov/vaccines. Contact your health care provider as soon as possible if you have: -Concerns for an emergency medical condition -Uncontrolled pain or other life-threatening symptoms -Any worries or concerns -Other: END OF INSTRUCTIONS /cydney/ Addison Nguyen M.D., Ph.D. Rd Manager Signed: 02/28/2024 19:28 ADDISON NGUYEN [facility] Feb 28, 2024 07:26 PM PHYSICIAN EMERGENC Y DEPT NOTE: LOCAL TITLE: EMERGENCY DEPARTMENT [facility] STANDARD TITLE: PHYSICIAN EMERGENCY DEPT NOTE DATE OF NOTE: FEB 28, 2024@19:26 ENTRY DATE: FEB 28, 2024@19:26:10 AUTHOR: ADDISON NGUYEN EXP COSIGNER: URGENCY: STATUS: COMPLETED Patient requests TDAP booster per nursing, denies medical complaints, does not require medical visit. TDAP administered without issue. We will notify PCP and wardrobe manager for outpatient f/u and update vaccination records. /cydney/ Addison Nguyen M.D., Ph.D. Rd Manager Signed: 02/28/2024 19:28 Receipt Acknowledged By: 03/02/2024 08:18 /cydney/ SHEELA CAMARILLO MSN, AGNP-C 03/02/2024 12:03 /cydney/ MARCO A ESQUIVELN, RN REGISTERED NURSE for ADDISON RODRIGUEZ [facility] Feb 28, 2024 07:22 PM EMERGENCY DEPT TRI AGE NOTE: LOCAL TITLE: EMERGENCY DEPARTMENT TRIAGE NOTE STANDARD TITLE: EMERGENCY DEPT TRIAGE NOTE DATE OF NOTE: FEB 28, 2024@19:22 ENTRY DATE: FEB 28, 2024@19:22:12 AUTHOR: JASWINDER BENAVIDEZ EXP COSIGNER: URGENCY: STATUS: COMPLETED Emergency Department/Urgent Care Center Triage Patient age:33 Sex: MALE On arrival patient was: AMBULATORY Patient phone number: Allergies: Patient has answered NKA Subjective/Chief Complaint: TDAP Objective: Pt here for a TDAp booster for his work. The patient is not a fall risk. BP: P: R: WT: T: HT: Temperature 98 F (36.7 C) Pulse 80 Respirations 16 Blood Pressure 120/80 Pain scale recorded: 0 Pulse Oximetry 99 Sepsis Screening Evaluation Emergency Severity Index (NIRMAL) level Level 5 Current Medications: Active Outpatient Medications (including Supplies): [...] Vitamin D deficiency 19) Anxiety Suicide Screen: [place] Suicide Severity Rating Scale (C-SSRS) screener 1. [...] due to responses to other questions. /cydney/ JASWINDER BENAVIDEZ REGISTERED NURSE Signed: 02/28/2024 19:23 JASWINDER BENAVIDEZ [facility] Feb 28, 2024 07:18 PM NURSING IMMUNIZATI ON NOTE: LOCAL TITLE: CLINIC ADMINISTERED IMMUNIZATION/MEDICATION(S) STANDARD TITLE: NURSING IMMUNIZATION NOTE DATE OF NOTE: FEB 28, 2024@19:18:09 ENTRY DATE: FEB 28, 2024@19:18:09 AUTHOR: JASWINDER BENAVIDEZ EXP COSIGNER: URGENCY: STATUS: COMPLETED Administered: TDAP Date Administered: Feb 28, 2024 19:09 Series: [employer] Agent: SANOFI PASTEUR Lot: [id number] Exp Date: Sep 22, 2025 [facility]: [phone] Admin Route/Site: INTRAMUSCULAR/LEFT DELTOID Dosage: 0.5mL Vaccine Information Statement(s): TDAP (TETANUS, DIPHTHERIA, PERTUSSIS) VACCINE VIS Apr 28, 2021 ([facility]I) Order By: Policy Administered By: Jaswinder Benavidez /cydney/ JASWINDER BENAVIDEZ REGISTERED NURSE Signed: 02/28/2024 19:18 JASWINDER BENAVIDEZ [facility]
--- OUTSIDE RECORDS SUMMARY | 2025-01-15 07:41 | XMS_ITS ---
Author Name [facility] (MD[facility] Organization [facility]) Address [address] [place] [address] Care Team Providers Care Grinder Outside Diameter Name Role Phone BROOKLYN ARAGON Primary Care [...] FOCUS FAMIL Y Oct 08, [phone] [id number] [phone] REISING,T YLER PATIENT CAREMARK ([id number])RX PRESCRIPT ION GEHA Oct 04, 2024 [id number] [phone] REISING,T YLER PATIENT CAREMARK FEP [id number] PRESCRIPT ION FEPRX Aug 16, 2019 [id number] [phone] REISING,T YLER PATIENT GEHA PREFERRED PROVIDER ORGANIZAT ION (PPO) GEHA STAND EVELYN Oct 04, 2024 [id number] [phone] REISING,T YLER PATIENT Selected Encounter This section includes the information on record at MD for the Encounter. Date/Time Encounter Type Encounter Description Reason Provider Source February 04, 2024 09:15 AM EGD DIAGNOSTIC [facility] ICD-10-CM K21.00 Gastro-esopha geal reflux dis with esophagitis, without bleed HAYDEN EDWARDS Karen Encounter Template Text not used by MD Assessments - Encounter Diagnoses This section includes the primary and secondary diagnoses documented for the Encounter. Date/Time Primary/Secondary Diagnosis Diagnosis Name Provider Source February 11, 2024 01:40 PM PRIMARY Gastro-esophagea l reflux dis with esophagitis, without bleed JUSTYN EDWARDS [facility] Plan of Treatment: Future Appointments (+ 6 months) and Future Tests (+/- 45 days) The Plan of Treatment section includes future care activities for the patient from all MD [facility]. This section includes future appointments and future orders which are active, pending or scheduled. Future Appointments This section includes appointments that were scheduled to occur 6 months from the date of the Encounter, up to a maximum of 20 appointments. The data comes from all MD treatment facilities. Appointment Date/Time Appointment Type Appointme nt Facility Name February 05, 2024 09:00 AM AMBULATORY - PSYCHIATRY [facility] February 07, 2024 08:00 AM AMBULATORY - SURGERY [facility] Feb 27, 2024 01:00 PM AMBULATORY - MEDICINE [facility] Feb 27, 2024 03:00 PM AMBULATORY - PSYCHIATRY [facility] Feb 28, 2024 07:09 PM AMBULATORY - MEDICINE [facility] Mar 03, 2024 02:00 PM AMBULATORY - PSYCHIATRY [facility] Mar 04, 2024 11:00 AM AMBULATORY - MEDICINE [facility] Mar 13, 2024 11:00 AM AMBULATORY - PSYCHIATRY [facility] Mar 20, 2024 09:00 AM AMBULATORY - PSYCHIATRY [facility] Mar 25, 2024 04:00 PM AMBULATORY - PSYCHIATRY [facility] Mar 25, 2024 06:00 PM AMBULATORY - MEDICINE [facility] Apr 08, 2024 02:00 PM AMBULATORY - PSYCHIATRY [facility] Apr 16, 2024 03:06 AM AMBULATORY - MEDICINE [facility] Apr 16, 2024 08:30 AM AMBULATORY - SURGERY . [facility] Apr 22, 2024 02:00 PM AMBULATORY - PSYCHIATRY [facility] Apr 22, 2024 03:30 PM AMBULATORY - MEDICINE [facility] Apr 27, 2024 02:45 PM AMBULATORY - SURGERY . [facility] May 01, 2024 11:00 AM AMBULATORY - NONE [facility] May 15, 2024 09:30 AM AMBULATORY - SURGERY . [facility] May 20, 2024 03:30 PM AMBULATORY - NONE [facility] Active, Pending, and Scheduled Orders This section includes a listing of several types of active, pending, and scheduled orders, including clinic medications orders, diagnostic test orders, procedure orders and consult orders; where the start date of the order is 45 days before the date of the Encounter or 45 days after the date of theEncounter. The data comes from all MD treatment facilities. Test Date/Time Test Type Test Details Facility Name Jan 18, 2024 04:36 AM Laboratory - Chemistry Order CBC BLOOD STAT WC ONCE [facility] January 23, 2024 12:00 AM Laboratory - Chemistry Order HGA1C BLOOD SP [facility] January 23, 2024 12:00 AM Laboratory - Chemistry Order LIPID PANEL (STL) GREEN LI/HEP BLD/PLAS PLASMA SP [facility] January 23, 2024 12:00 AM Laboratory - Chemistry Order COMPREHENSIVE METABOLIC PANEL GREEN LI/HEP BLD/PLAS PLASMA SP [facility] January 23, 2024 12:00 AM Laboratory - Chemistry Order VITAMIN D, 25-HYDROXY GOLD/RED SST SERUM SP [facility] January 23, 2024 12:00 AM Laboratory - Chemistry Order B12 GOLD/RED SST SERUM [facility] January 23, 2024 12:00 AM Laboratory - Chemistry Order TSH (MA-PB) GOLD/RED SST SERUM [facility] Mar 06, 2024 12:00 AM Laboratory - Chemistry Order CBC (DIFF&PLT) BLOOD [facility] Mar 06, 2024 12:00 AM Laboratory - Chemistry Order COMPREHENSIVE METABOLIC PANEL BLOOD PLASMA SP [facility] Mar 06, 2024 12:00 AM Laboratory - Chemistry Order URINALYSIS URINE SP [facility] Mar 06, 2024 12:00 AM Laboratory - Chemistry Order LIPID PANEL BLOOD PLASMA SP [facility] Mar 06, 2024 12:00 AM Laboratory - Chemistry Order TSH-G,LC,J,T BLOOD PLASMA SP [facility] Mar 06, 2024 12:00 AM Laboratory - Chemistry Order HEMOGLOBIN %A1C PROFILE BLOOD SP [facility] Mar 06, 2024 12:00 AM Laboratory - Chemistry Order MICROALBUMINURIA(IVONNE) URINE SP [facility] Lab Results: +/- 30 days of the encounter This section includes the Chemistry and Hematology Lab Results on record with MD for the patient. Radiology Reports and Pathology Reports are provided separately, in subsequent sections. Lab Results This section contains the Chemistry/Hematology Results that were resulted 30 days before or 30 daysafter the date of the Encounter. Date/Time Source Result Type Result - Unit Interpretation Reference Range Specimen Type Comment Mar 01, 2024 09:06 PM [facility] HGA1C BLOOD Specimen Type: BLOOD No comment entered. Ordering Provider: ROYA CARTAGENA Report Released Date/Time: Feb 24, 2024 04:42 PM Reporting Lab: [facility] [address] [facility] [address] Performing Lab: [facility] [address] [place] [phone] HGA1C 5.3 4.0-6.0 Mar 01, 2024 09:06 PM [facility] LIPID PANEL (STL) PLASMA Specimen Type: PLASM A Comment: No hemolysis noted. Ordering Provider: ROYA CARTAGENA Report Released Date/Time: Feb 24, 2024 04:42 PM Reporting Lab: [facility] [address] [place] [phone] Performing Lab: [address] [address] CHOLESTEROL 174 mg/dL 0-200 TRIGLYCERIDE 220 mg/dL H 0-150 CALCULATED LDL 98 mg/dL HDL(New) 32 mg/dL L >40 Mar 01, 2024 09:06 PM [facility] COMPREHENSIVE METABOLIC PANEL PLASMA Specimen Type: PLASMA Comment: No hemolysis noted. Ordering Provider: ROYA CARTAGENA Report Released Date/Time: Feb 24, 2024 04:42 PM Reporting Lab: [address] [address] Performing Lab: [address] [address] CREATININE 1.33 mg/dL H 0.7-1.3 UREA NITROGEN [...] 71.9 >60 Mar 01, 2024 09:06 PM [facility] URINALYSIS (STL-PB) URINE Specimen Type: URIN E No comment entered. Ordering Provider: ROYA CARTAGENA Report Released Date/Time: Feb 24, 2024 04:42 PM Reporting Lab: [address] [address] Performing Lab: [address] [address] URINE COLOR Light-Yellow Yellow U.BILIRUBIN Negative mg/dL [...] Mar 01, 2024 09:[address] [facility] CBC BLOOD Specimen Type: BLOOD No comment entered. Ordering Provider: ROYA CARTAGENA Report Released Date/Time: Feb 24, 2024 04:42 PM Reporting Lab: [facility] [address] [facility] [address] Performing Lab: [facility] [address] [facility] [address] WBC 7.7 10*3/uL 3.6-11.2 RBC 5.34 10*6/uL [...] 0.00-0. 20 Jan 18, 2024 04:22 AM [facility] COVID-19 DIAGNOSTIC (FLU/RSV)(STL) NASOPHARYNX Spec imen [...] Jan 18, 2024 04:23 AM Reporting Lab: [address] [phone] Performing Lab: [address] [address] INFLUENZA A Negative Negative INFLUENZA B Negative Negative COVID-19 (STL-PB) Not Detected Not Detec braden RSV (Cepheid) NEGATIVE Negative Jan 18, 2024 04:22 AM [facility] COMPREHENSIVE METABOLIC PANEL PLASMA Specimen Type: PLASMA Comment: Aspartate Transaminase result may show positive bias due to hemolysis. K result canceled due to hemolysis. Specimen moderately hemolyzed. K Cancelled due to moderate hemolysis. NOTIFIED VIRGEN OLIVAS RN @ 3530 ON 01/18/24 BY [facility] Ordering Provider: ADINA WALTON Report Released Date/Time: Jan 18, 2024 04:23 AM Reporting Lab: [address] [address] Performing Lab: [address] [address] CREATININE 1.43 mg/dL H 0.7-1.3 UREA NITROGEN [...] 65.9 >60 Jan 18, 2024 04:[address] [facility] CBC BLOOD Specimen Type: BLOOD No comment entered. Ordering Provider: ADINA WALTON Report Released Date/Time: Jan 18, 2024 04:23 AM Reporting Lab: [facility] [address] [facility] [address] Performing Lab: [facility] [address] [place] [phone] WBC 8.4 10*3/uL 3.6-11.2 RBC 5.61 10*6/uL [...] 0.00-0. 20 Jan 18, 2024 04:22 AM [facility] LIPASE PLASMA Specimen Type: PLASM A Comment: *COMPREHENSIVE METABOLIC PANEL Not Performed: Jan 18, 2024@05:09 by *FOOD AIDE Reason: DUPLICATE SPECIMEN ORDER. SEE ORDER [id number] Aspartate Transaminase result may show positive bias due to hemolysis. K result canceled due to hemolysis. Specimen moderately hemolyzed. Ordering Provider: ADINA WALTON Report Released Date/Time: Jan 18, 2024 04:36 AM Reporting Lab: [facility] [address] [facility] [address] Performing Lab: [address] [address] LIPASE 34 U/L 8-78 Jan 18, 2024 04:22 AM [facility] GGT GAMMA-GT PLASMA Specimen Type: PLASM A Comment: *COMPREHENSIVE METABOLIC PANEL Not Performed: Jan 18, 2024@05:09 by *FOOD AIDE Reason: DUPLICATE SPECIMEN ORDER. SEE ORDER [id number] Aspartate Transaminase result may show positive bias due to hemolysis. K result canceled due to hemolysis. Specimen moderately hemolyzed. Ordering Provider: ADINA WALTON Report Released Date/Time: Jan 18, 2024 04:36 AM Reporting Lab: [facility] [address] [facility] [address] Performing Lab: [facility] [address] [facility] [address] GGT GAMMA-GT 99 [IU]/L H 12-64 Social [...] 08, 2024 04:16 PM VA-TOBACCO FORMER USER [facility] Tobacco Use History This section includes a history of the smoking, or tobacco-related health factors, that were collected on or before the date of the Encounter. The data comes from the MD facility where the Encounter took place. Date/Time Smoking Status/Tobacco Use Comment F acility Jan 08, 2024 04:16 PM VA-TOBACCO QUIT 15 YRS OR MORE [facility] Dec 18, 2023 09:41 AM VA-TOBACCO FORMER USER [facility] Dec 18, 2023 09:41 AM VA-TOBACCO QUIT 1 TO < 5 YRS [facility] Advance Directives: All historical and current [...] DIRECTIVE NO TIFICATION AND SCREENING SYLWIA SANTIAGO [facility] May 14, 2023 ADVANCE DIRECTIVE NO TIFICATION AND SCREENING SYLWIA SANTIAGO [facility] Encounter Notes: All associated encounter notes This section contains the clinical notes associated to the Encounter. Date/Time Encounter Note(s) Provider Source February 04, 2024 09:02 AM PREPROCEDURE NOTE: LOCAL TITLE: PHYSICIAN PRE-PROCEDURE ASSESSMENT STL STANDARD TITLE: PREPROCEDURE NOTE DATE OF NOTE: FEBRUARY 04, 2024@09:02 ENTRY DATE: FEBRUARY 04, 2024@09:02:44 AUTHOR: ALEC CHA EXP COSIGNER: JUSTYN EDWARDS URGENCY: STATUS: COMPLETED Airway: No significant abnormality Neck Extension: Not Limited Teeth: No significant abnormality Cardiac: No significant abnormality Pulmonary: No significant abnormality Gastrointestinal: No significant abnormality Neurological: No significant abnormality ASA Score: 2 Abdominal and Pelvic Surgical History: none Sedation/Anesthesia Plan: Anesthesia consult History of previous adverse reaction to sedation: No Tobacco use: No Alcohol use: No Recreational drug use: No Last oral intake: Time spent: /cydney/ ALEC CHA Gastroenterology Fellow Signed: 02/04/2024 09:11 /cydney/ Justyn Edwards M.D. Separator Inserter Cosigned: 02/04/2024 14:06 ALEC CHA [facility]
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
--- OUTSIDE RECORDS SUMMARY | 2025-01-15 07:41 | XMS_ITS ---
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 Date/Time Encounter Type Encounter Description Reason Provider Source Apr 08, 2024 02:00 PM PSYCH DIAGNOSTIC EVALUATION [facility] ICD-10-CM F33.1 Major depressive disorder, recurrent, moderate BORN,TAMIKO R E Encounter Template Text not used by [place] Assessments - Encounter Diagnoses This section includes the primary and secondary diagnoses documented for the Encounter. Date/Time Primary/Secondary Diagnosis Diagnosis Name Provider Source Apr 09, 2024 10:55 AM PRIMARY Major depressive disorder, recurrent, moderate BORN,TAMIKO R [facility] Apr 09, 2024 10:55 AM SECONDARY Anxiety disorder, unspecified BORN,TAMIKO R . [facility] Plan of Treatment: Future Appointments (+ 6 months) and Future Tests (+/- 45 days) The Plan of Treatment section includes future care activities for the patient from all [place] [facility]. This section includes future appointments and future orders which are active, pending or scheduled. Future Appointments This section includes appointments that were scheduled to occur 6 months from the date of the Encounter, up to a maximum of 20 appointments. The data comes from all [place] treatment facilities. Appointment Date/Time Appointment Type Appointme nt Facility Name Apr 16, 2024 03:06 AM AMBULATORY - MEDICINE [facility] Apr 16, 2024 08:30 AM AMBULATORY - SURGERY [facility] Apr 22, 2024 02:00 PM AMBULATORY - PSYCHIATRY [facility] Apr 22, 2024 03:30 PM AMBULATORY - MEDICINE [facility] Apr 27, 2024 02:45 PM [facility]ERY [facility] May 01, 2024 11:00 AM AM[facility]UL[facility]ORY - NONE [facility] May 15, 2024 09:30 AM AMBULATORY - SURGERY [facility] May 20, 2024 03:30 PM [facility]ULATORY - NONE [facility] May 28, 2024 02:00 PM AMBULATORY - PSYCHIATRY [facility] Jun 03, 2024 11:30 AM AMBULATORY - SURGERY [facility] Jun 11, 2024 01:00 PM AMBULATORY - PSYCHIATRY [facility] Jun 29, 2024 03:00 PM [facility] Jul 17, 2024 01:24 PM AMBULATORY - MEDICINE [facility] Jul 22, 2024 10:30 AM [facility] Jul 24, 2024 04:14 AM AMBULATORY - MEDICINE [facility] Aug 07, 2024 03:00 PM [facility] Oct 07, 2024 04:15 PM AMBULATORY - MEDICINE [facility] Active, Pending, and Scheduled Orders This section includes a listing of several types of active, pending, and scheduled orders, including clinic medications orders, diagnostic test orders, procedure orders and consult orders; where the start date of the order is 45 days before the date of the Encounter or 45 days after the date of theEncounter. The data comes from all [facility] facilities. Test Date/Time Test Type Test Details Facility Name Mar 06, 2024 12:00 AM Laboratory - Chemistry Order CBC (DIFF&PLT) BLOOD SP [facility] Mar 06, 2024 12:00 AM Laboratory - Chemistry Order COMPREHENSIVE METABOLIC PANEL BLOOD PLASMA SP [facility] Mar 06, 2024 12:00 AM Laboratory - Chemistry Order URINALYSIS URINE [facility] Mar 06, 2024 12:00 AM Laboratory - Chemistry Order LIPID PANEL BLOOD PLASMA [facility] Mar 06, 2024 12:00 AM Laboratory - Chemistry Order TSH-G,LC,J,T BLOOD PLASMA SP [facility] Mar 06, 2024 12:00 AM Laboratory - Chemistry Order HEMOGLOBIN %A1C PROFILE BLOOD SP [facility] Mar 06, 2024 12:00 AM Laboratory - Chemistry Order MICROALBUMINURIA(IVONNE) URINE SP [facility] Apr 16, 2024 11:39 AM Laboratory - Chemistry Order MRSA SURVL [facility]ES DNA [facility] Apr 18, 2024 09:38 AM Laboratory - Chemistry Order MRSA SURVL NARES DNA [facility] Lab Results: +/- 30 days of [...] Apr 16, 2024 04:01 PM Reporting Lab: [address] [address] Performing Lab: [address] [address] CREATININE 1.22 mg/dL 0.7-1.3 UREA NITROGEN 12.4 mg/dL 9.0-25.0 GLUCOSE 131 mg/dL H 72-99 SODIUM 139 meq/L 136-145 POTASSIUM 4.6 meq/L 3.5-5 CHLORIDE 105 meq/L 98-107 CARBON DIOXIDE 23 meq/L 22-31 CALCIUM 9.2 mg/dL 8.4-10.4 EGFR (CKD-EPI 2020) 79.3 >60 Apr 17, 2024 08:[address] [facility] CBC BLOOD Specimen Type: BLOOD No comment entered. Ordering Provider: JAKUB DOAN V Report Released Date/Time: Apr 16, 2024 04:01 PM Reporting Lab: [address] [address] Performing Lab: [address] [address] WBC 11.4 10*3/uL H 3.6-11.2 RBC 5.43 [...] Apr 16, 2024 04:01 PM Reporting Lab: [address] [address] Performing Lab: [address] [address] CREATININE 1.21 mg/dL 0.7-1.3 UREA NITROGEN 11.5 mg/dL 9.0-25.0 GLUCOSE 99 mg/dL 72-99 SODIUM 141 meq/L 136-145 POTASSIUM 3.8 meq/L 3.5-5 CHLORIDE 105 meq/L 98-107 CARBON DIOXIDE 25 meq/L 22-31 CALCIUM 9.2 mg/dL 8.4-10.4 EGFR (CKD-EPI 2020) 80.1 >60 Apr 16, 2024 08:[address] [facility] APTT PLASMA Specimen Type: PLASM A No comment entered. Ordering Provider: JAKUB DOAN V Report Released Date/Time: Apr 16, 2024 04:02 PM Reporting Lab: [address] [address] Performing Lab: [address] [address] APTT 28.9 s 26.7-39.9 Apr 16, 2024 08:18 PM [facility] PT/INR NEW (STL-MA) PLASMA Specimen Type: PLAS MA No comment entered. Ordering Provider: JAKUB DOAN V Report Released Date/Time: Apr 16, 2024 04:02 PM Reporting Lab: [address] [place] [address] Performing Lab: [facility] [address] [facility] [address] PROTIME 12.3 s 9.4-12.5 INR VALUE 1.1 {INR} Apr 16, 2024 08:[address] [facility] CBC BLOOD Specimen Type: BLOOD No comment entered. Ordering Provider: JAKUB DOAN V Report Released Date/Time: Apr 16, 2024 04:01 PM Reporting Lab: [place] [address] [facility] [address] Performing Lab: [address] [address] WBC 6.8 10*3/uL 3.6-11.2 RBC 5.13 10*6/uL [...] 0.00-0. 20 Apr 16, 2024 03:[address] [facility] LIPASE PLASMA Specimen Type: PLASM A Comment: No hemolysis noted. Ordering Provider: ADINA WALTON Report Released Date/Time: Apr 16, 2024 03:23 AM Reporting Lab: [place] [address] [facility] [address] Performing Lab: [facility] [address] [address] LIPASE 36 U/L 8-78 Apr 16, 2024 03:25 AM [facility] GGT GAMMA-GT PLASMA Specimen Type: PLASM A Comment: No hemolysis noted. Ordering Provider: ADINA WALTON Report Released Date/Time: Apr 16, 2024 03:23 AM Reporting Lab: [facility] [address] [facility] [address] Performing Lab: [address] [address] GGT GAMMA-GT 25 [IU]/L 12-64 Apr 16, 2024 03:25 AM [facility] COMPREHENSIVE METABOLIC PANEL PLASMA Specimen Type: PLASMA Comment: No hemolysis noted. Ordering Provider: ADINA WALTON Report Released Date/Time: Apr 16, 2024 03:23 AM Reporting Lab: [address] [address] Performing Lab: [address] [address] CREATININE 1.42 mg/dL H 0.7-1.3 UREA NITROGEN [...] 66.1 >60 Apr 16, 2024 03:[address] [facility] CBC BLOOD Specimen Type: BLOOD No comment entered. Ordering Provider: ADINA WALTON Report Released Date/Time: Apr 16, 2024 03:23 AM Reporting Lab: [facility] [address] [facility] [address] Performing Lab: [facility] [address] [facility] [address] WBC 8.8 10*3/uL 3.6-11.2 RBC 5.41 10*6/uL [...] 18, 2022 11:00 AM VA-TOBACCO FORMER USER [facility] Tobacco Use History This section includes a history of the smoking, or tobacco-related health factors, that were collected on or before the date of the Encounter. The data comes from the [place] facility where the Encounter took place. Date/Time Smoking Status/Tobacco Use Comment F acility Apr 18, 2022 11:00 AM [place]-TOBAC[place] QUIT 1 TO < 5 YRS [facility] Advance Directives: All historical and current Section Date Range: From patient's date of to the date document was created. This section includes ALL of a patient's completed or amended [place] Advance and Rescinded Directives. The entries below indicate that a directive exists for the patient, but an actual copy is not included with this document. The data comes from all [place] facilities. Date Advance Directives Provider Source Aug 28, 2023 ADVANCE DIRECTIVE NO TIFICATION AND SCREENING SYLWIA SANTIAGO [facility] May 14, 2023 ADVANCE DIRECTIVE NO TIFICATION AND SCREENING SYLWIA SANTIAGO [facility] Radiology Reports: +/- 30 days of [...] SPINE LUMBAR W /O CONT: MERLE LAFLEUR [id number] -1990 M Exm Date: MAY 01, 2024@09:48 Req Phys: SOBIA SORENSEN Loc: [facility]-NEUROSURGERY DISTANCE LEARNING COORDINATOR 1 (Req'g Lo Img Loc: [facility]-MAGNETIC RESONANCE IMAGING Service: Unknown [facility], [facility] [address] [place] [address] (Case [id number] COMPLETE) MRI SPINE LUMBAR W/O CONT (MRI Detailed) CPT:92765 Reason for Study: Low back pain. L2, [...] Apr Responsible Attending: Valarie Attending Contact Number: [id number] Resident Contact Number: Does your patient have [...] 01, 2024 Date Verified: MAY 01, 2024 House Wirer E-Sig:/ES/MONICA DUARTE Report: INDICATION: Low back pain. [...] above. Primary Interpreting Staff: MONICA DUARTE, RADIOLOGIST (House Wirer) /MONICA ROJAS [facility] Apr 16, 2024 07:12 AM US ABDOMEN LIMITED W/BLOOD FLOW DOPPLER: CIARRAMERLE JOLENE [id number] -1990 M Exm Date: APR 16, 2024@07:12 Req Phys: ADINA WALTON Pat Loc: [facility]-EMERGENCY DEPT 1ST SHIFT (R Img Loc: [facility]ULTRASOUND [facility] Service: Unknown [facility] [address] [place] [address] (Case [id number] COMPLETE) US ABDOMEN LTD, SINGLE ORG OR MORTEZA(US Detailed) CPT:16746 Reason for Study: eval acute cholecystitis (Case [id number] COMPLETE) US BLOOD FLOW ABD/RENAL (LTD) (US Detailed) CPT:48311 Clinical History: Organ to Image: Gallbladder Reason for exam: ho cholelithiasis. here with RUQ abdominal pain and nausea/emesis. Evaluate for acute cholecystitis Report Status: Verified Date Reported: APR 16, 2024 Date Verified: APR 16, 2024 House Wirer E-Sig:/ES/JAIRO MCCOY Report: Case [id number], [id number]. US ABDOMEN LTD, SINGLE ORG OR QUADRANT, [...] findings. Primary Interpreting Staff: JAIRO MCCOY, RADIOLOGIST (House Wirer) Primary Interpreting Resident: JOSE ROBERTO RAMSAY, Resident Physician /JAIRO NGUYEN [facility] Apr 16, 2024 04:[address] ABD PEL W/O & W CONT & 3D: MERLE LAFLEUR [id number] -1990 M Exm Date: APR 16, 2024@04:46 Req Phys: ADINA WALTON Loc: [facility]-EMERGENCY DEPT 1ST SHIFT (R Img Loc: [facility]-CT IMAGING [facility] Service: Unknown [facility] [address] [place] [address] (Case [id number] COMPLETE) CT ABDOMEN AND PELVIS W/CONTRAST (CT Detailed) CPT:24208 Contrast Media : Non-ionic Iodinated Reason for Study: evaluate for acute cholecystitis (Case [id number] COMPLETE) CT 3D RENDERING W INDEPENDENT WOR(CT Detailed) CPT:29714 Clinical History: Responsible Attending: jordon Attending Contact Number: az Resident Contact Number: ho cholelithiasis, now wiht [...] 16, 2024 Date Verified: APR 16, 2024 House Wirer E-Sig:/ES/RANDALL JULES MD Report: Spiral axial imaging [...] Primary Interpreting Staff: RANDALL JULES MD, Radiologist (House Wirer) /RANDALL BLANK [facility] Mar 25, 2024 07:[address] LUMBAR SPINE W/ O CONT: MERLE LAFLEUR [id number] -1990 M Exm Date: MAR 25, 2024@19:39 Req Phys: JESSICA PATTEN Loc: [facility]-EMERGENCY DEPT 3RD SHIFT (R Img Loc: [facility]CT IMAGING [facility] Service: Unknown [facility], [facility] [address] [place] [address] (Case [id number] COMPLETE) CT LUMBAR SPINE W/O CONT (CT Detailed) CPT:56367 Reason for Study: eval for fx/dislocation Clinical History: Responsible Attending: DR JESSICA PATTEN Attending Contact Number: [phone] Resident Contact Number: FELL while roller blading. [...] 25, 2024 Date Verified: MAR 25, 2024 House Wirer E-Sig: Report: CT THORACIC SPINE W/O CONT, CT LUMBAR SPINE W/O CONT HISTORY: eval for fx/dislcoation COMPARISON: No priors available. TECHNIQUE: The study was protocoled and supervised at the local [place] facility. 2807 images were subsequently received by the [place] National Teleradiology Program (NTP) for interpretation. Volumetric [...] fracture fragments. READING PHYSICIAN: Caio Rollins MD -[id number] 03/25/2024 18:30 PDT [facility] [phone] (For Medical Practitioner Use Only) Attention Patients / Veterans: If you have questions or concerns about these test results, please contact your ordering provider or primary care team. Primary Interpreting Staff: RADIOLOGY,OUTSIDE SERVICE, Staff Physician / RADIOLOGY,OUTSIDE SERVICE [facility] Mar 25, 2024 07:[address] THORACIC SPINE W/O CONT: RAMSESMERLE OQUENDO [id number] -1990 M Exm Date: MAR 25, 2024@19:39 Req Phys: JESSICA PATTEN Loc: [facility]EMERGENCY DEPT 3RD SHIFT (R Img Loc: [facility]CT IMAGING [facility] Service: [facility], [facility] [address] [place] [address] (Case [id number] COMPLETE) CT THORACIC SPINE W/O CONT (CT Detailed) CPT:81610 Reason for Study: eval for fx/dislcoation Clinical History: Responsible Attending: dr jessica patten Attending Contact Number: [phone] Resident Contact Number: FELL while roller blading. [...] 25, 2024 Date Verified: MAR 25, 2024 House Wirer E-Sig: Report: CT THORACIC SPINE W/O CONT, CT LUMBAR SPINE W/O CONT HISTORY: eval for fx/dislcoation COMPARISON: No priors available. TECHNIQUE: The study was protocoled and supervised at the local [place] facility. 2807 images were subsequently received by the [place] National Teleradiology Program (NTP) for interpretation. Volumetric [...] fracture fragments. READING PHYSICIAN: Caio Rollins MD -[phone] 03/25/2024 18:30 PDT [facility] National Teleradiology Program [phone] (For Medical Practitioner Use Only) Attention Patients / Veterans: If you have questions or concerns about these test results, please contact your ordering provider or primary care team. Primary Interpreting Staff: RADIOLOGY,OUTSIDE SERVICE, Staff Physician / RADIOLOGY,OUTSIDE SERVICE [facility] Pathology Reports: +/- 30 days [...] comes from all [place] treatment facilities. Date/Time Pathology Report Provider Source Apr 21, 2024 11:44 AM LR SURGICAL PATHOL OGY REPORT: LOCAL TITLE: LR SURGICAL PATHOLOGY REPORT STANDARD TITLE: PATHOLOGY PROCEDURE NOTE DATE OF NOTE: APR 21, 2024@11:44:09 ENTRY DATE: APR 21, 2024@11:44:09 AUTHOR: CHELI MORALESER: URGENCY: STATUS: COMPLETED $APHDR - - - [...] seen, and no masses are grossly identified. Railroad Passenger Agent sections of the wall from the body [...] Performing Laboratory: Surgical Pathology Report Performed By: [address] [id number] [address] [address] $FTR - - - - - - [...] - - MERLE LAFLEUR STANDARD FORM 515 ID:[id number] SEX:M :1990 AGE: 34 LOC:AP[facility]EE PCP: Jaswinder Villafuerte MD /cydney/ CHELI MORALES Pathologist Signed: 04/21/2024 11:44 CHELI MORALES [facility] Encounter Notes: All associated encounter notes This section contains the clinical notes associated to the Encounter. Date/Time Encounter Note(s) Provider Source Apr 08, 2024 02:00 PM SOCIAL WORK NOTE: LOCAL TITLE: SOCIAL WORK [facility] ST STANDARD TITLE: SOCIAL WORK NOTE DATE OF NOTE: APR 08, 2024@14:00 ENTRY DATE: APR 08, 2024@14:08:29 AUTHOR: TAMIKO LIVE COSIGNER: URGENCY: STATUS: COMPLETED COGNITIVE BEHAVIORAL THERAPY FOR DEPRESSION (CBT-D): MIDDLE PHASE Time in session (in minutes): 50 SESSION NUMBER: 3 SESSION FORMAT Video Telehealth Session SESSION LOCATION [facility] DIAGNOSIS: Primary (focus of treatment): Depressive disorder Secondary (if applicable): Anxiety Disorder ASSESSMENT Date Instrument Raw Trans Scale 04/08/2024 14:07 PHQ9 13 PHQ9 03/03/2024 14:13 PHQ9 12 PHQ9 02/25/2024 14:41 PHQ9 13 PHQ9 02/04/2024 15:50 PHQ9 15 PHQ9 05/31/2022 09:17 PHQ9 8 PHQ9 05/17/2022 09:03 PHQ9 11 PHQ9 05/04/2022 10:40 PHQ9 14 PHQ9 OTHER ASSESSMENT MEASURES Changed medications and it is helping more with change; also taking pain killers Hydroxyine makes him sleepy and won't take as much SESSION CONTENT: In this middle phase session of Cognitive Behavioral Therapy (CBT) for depression, the following therapeutic activities were performed: BRIDGE FROM LAST SESSION Therapist inquired about what the Casco found important or helpful from the last session and if the had any concerns about the last session. Therapist inquired about the degree to which the homework was completed and what was learned from the homework assessment. Casco did not complete HW due fall and breaking his back PRIORITIZED AGENDA The therapist and Casco collaboratively developed a prioritized agenda. Casco reports recent incident where he fell and broke his back COGNITIVE STRATEGIES: The following cognitive strategies were discussed during the session: Identified Automatic Thoughts Noted and discussed in-session mood shift Used 3-Column Thought Record Modified Dysfunctional Automatic Thoughts Examined the evidence Used 5-Column Thought Record COLLABORATIVE HOMEWORK ASSIGNMENT: The homework assignment for this session was: 5 column thought record again The homework assignment and goal of the assignment was written down. The therapist inquired about 's understanding of the homework assignment and its rationale. Therapist and Casco discussed the likelihood that the will do the homework. Specific roadblocks or challenges for doing the homework were discussed. FINAL SUMMARY AND FEEDBACK: reports he is workign on identifying certain thoughts that arise and how to change these and reframe his thinking; notes therapy has been helpful for him in thinking things through and finding different ways of thinking of things. COLLABORATION The degree of collaboration between the Casco and the therapist in the current session was high. Description of collaboration in this session: PLAN Next session planned for agreed upon date/time of: 04/22/24 at 2PM for [facility] RISK ASSESSMENT: NOTE: Complete either No Change in Risk Factors or New/Updated Risk Assessment . [ x] NO CHANGE IN RISK FACTORS Related to Suicide or Homicide. did not report any current suicidal/homicidal ideation, plan, or intent. did not appear to be at imminent risk for suicide or homicide at this time and is considered sustainable at the current level of care. [ ] NEW/UPDATED RISK ASSESSMENT: -RELEVANT RISK AND PROTECTIVE FACTORS: -IDEATION: [ x] Casco denied current suicidal or homicidal ideation, plan, or intent. [ ] Suicidal or homicidal ideation/behavior WAS identified: -CLINICAL JUDGMENT AND DISPOSITION: [ x] In consideration of relevant risk and protective factors, the did NOT appear to be at imminent risk for suicide or homicide at this time and IS sustainable at the current level of care. -Comments: [ ] Casco IS considered to be at INCREASED RISK for suicide or homicide based upon: -Actions/interventions taken to address risk and prevent harm include: -Emergency protocols initiated were: -Comments: ASSESSMENT MEASURES USED THIS SESSION: NOTE: Measures should be entered into Mental Health Photo Producer if available and then entered into the chart. [ x] Measures/Scores: [x ] Results are located in Mental Health Diagnostic Study Note [ ] Measures not collected/administered this session: Rationale and plan for next administration: OR, Efforts made to increase measurement: [ ] Symptom review completed in Progress Towards Goals MEASURABLE TREATMENT GOALS FOR THIS EPISODE OF CARE: The following goals were developed using shared decision-making with input by the Casco: #1. GOAL/OBJECTIVES FOR THIS EPISODE OF CARE: I have anxiety and I don't have any energy and motivation to do things. I want to get that under control and be able to do things with my kids. PROGRESS TOWARDS GOAL OR SYMPTOM REVIEW: MBC collected; some minimal changes noted in depression and anxiety and notes some symptom changes due to recent fall and breaking his back; reports due to pain some difficulty sleeping and sitting still, etc. which affecting MBC numbers. #2. GOAL/OBJECTIVES FOR THIS EPISODE OF CARE: PROGRESS TOWARDS GOAL OR SYMPTOM REVIEW: COLLABORATIVE RECOMMENDATIONS/PLAN: 04/22/24 at 2PM for [facility] -Assigned Therapy Tasks: [ x] Collaboratively discussed outcomes related to assessment and treatment progress. Based on this discussion: [x ] No changes to plan of care. Casco expressed agreement with therapy tasks and [id number] plan. [ ] Recommend changes to plan of care: Reviewed proposed changes. Discussed potential benefits, risks, and complications. Casco agreed to proceed with changes. [ ] YES [ ] NO Comments: /cydney/ Tamiko Live [facility] Clinic Therapist, [facility] Signed: 04/09/2024 10:55 TAMIKO LIVE [facility] Apr 08, 2024 02:00 PM MENTAL HEALTH SUNDEEP TMENT PLAN NOTE: LOCAL TITLE: [facility] TREATMENT PLAN STANDARD TITLE: MENTAL HEALTH TREATMENT PLAN NOTE DATE OF NOTE: APR 08, 2024@14:00 ENTRY DATE: APR 09, 2024@11:01:53 AUTHOR: TAMIKO LIVE EXP COSIGNER: URGENCY: STATUS: COMPLETED [facility] TREATMENT PLAN - Mar, @ 02:00PM Visit Date: Mar, @ 14:00 - [facility] not assigned TEAM MEMBERS: TAMIKO LIVE: LIME BURNER RISK ASSESSMENT (DANGER TO SELF AND OTHERS): Access to firearms PATIENT'S PERCEPTION OF NEEDS AND PREFERENCES: I need stress reduction or relaxation Knowledge about how to overcome an emotional problem or mental illness PATIENT'S STRENGTHS/ABILITIES: Hope Resiliency Employed or has income/benefits [employer] DISCHARGE PLANNING/CRITERIA: Treating Specialty: DOMINIK Left area Refuses Services Successfully completed treatment goals has made significant progress toward goals TREATMENT PLAN: Problem: Anxiety and depression Goal: I have anxiety and I don't have any energy and motivation to do things. I want to get that under control and be able to do things with my kids. Objective: Casco to participate in weekly therapy to iimprove symtpoms of anxiety and increase motivation. This will include cognitive and behavioral interventions. Estimated time frame 12 weeks. Projected Target Date: 04/21/2024 Intervention: CBT weekly therapy with CASING WORKER for 12-16 weeks or until goal has been reached. Time Frame: One time per week for 12 weeks Treating Specialty: DOMINIK Renewal Date: 04/09/2025 Entered Treatment: 04/09/2024 @ 11:00AM Anticipated Discharge: 08/19/2024 Actual Discharge: None PARTICIPATION IN TREATMENT PLANNING: Relevant treatment options, including evidence-based interventions, were considered and discussed with the . A copy of the treatment plan was given to the . Risks, benefits, and potential complications were discussed with the [place]. AGREED TO PLAN DISCUSSED. FAMILY PARTICIPATION IN TREATMENT PLANNING: DECLINED FAMILY PARTICIPATION. /cydney/ Tamiko Live LCSW Clinic Therapist, [facility] Signed: 04/09/2024 11:01 TAMIKO LIVE [facility]
--- OUTSIDE RECORDS SUMMARY | 2025-01-15 07:41 | XMS_ITS | Encounter Summary ---
Author Name [facility] [place] Organization [facility] [place] [facility] [place] Address [address] [place] [address] Care Team Providers Care Stockroom Supervisor Name Role Phone BROOKLYN ARAGON Primary [...] FOCUS FAMIL Y Oct 08, 2021 [id number] [phone] REISING,T YLER PATIENT CAREMARK ([id number])RX PRESCRIPT ION GEHA Oct 04, 2024 [id number] [phone] REISING,T YLER PATIENT CAREMARK FEP [id number] PRESCRIPT ION FEPRX Aug 16, 2019 [id number] [phone] REISING,T YLER PATIENT GEHA PREFERRED PROVIDER ORGANIZAT ION (PPO) GEHA STAND EVELYN Oct 04, 2024 [id number] [phone] REISING,T YLER PATIENT Selected Encounter This section includes the information on record at [place] for the Encounter. Date/Time Encounter Type Encounter Description Reason Provider Source February 03, 2024 08:20 AM OFF/OP CNSLTJ NEW/EST MOD 40 GASTROENTEROLOGY ICD-10-CM K80.81 Other cholelithiasis with obstruction SETH EDWARDS Filiberto ROMINA Encounter Template Text not used by [place] Assessments - Encounter Diagnoses This section includes the primary and secondary diagnoses documented for the Encounter. Date/Time Primary/Secondary Diagnosis Diagnosis Name Provider Source February 11, 2024 01:24 PM PRIMARY Other cholelithiasis with obstruction HAYDEN EDWARDS [facility] February 11, 2024 01:24 PM SECONDARY Epigastric pain HAYDEN EDWARDS [facility] February 11, 2024 01:24 PM SECONDARY Gastro-esophageal reflux disease without esophagitis HAYDEN EDWARDS [facility] February 11, 2024 01:24 PM SECONDARY Vomiting, unspecified [facility] Plan of Treatment: Future Appointments (+ 6 months) and Future Tests (+/- 45 days) The Plan of Treatment section includes future care activities for the patient from all [place] [facility]. This section includes future appointments and future orders which are active, pending or scheduled. Future Appointments This section includes appointments that were scheduled to occur 6 months from the date of the Encounter, up to a maximum of 20 appointments. The data comes from all [place] treatment facilities. Appointment Date/Time Appointment Type Appointme nt Facility Name February 04, 2024 09:15 AM AMBULATORY - MEDICINE [facility] February 04, 2024 03:30 PM AMBULATORY - MEDICINE [facility] February 05, 2024 09:00 AM AMBULATORY - PSYCHIATRY [facility] February 07, 2024 08:00 AM AMBULATORY - SURGERY [facility] Feb 27, 2024 01:00 PM AMBULATORY - MEDICINE [facility] Feb 27, 2024 03:00 PM AMBULATORY - PSYCHIATRY [facility] Feb 28, 2024 07:09 PM AMBULATORY - MEDICINE [facility] Mar 03, 2024 02:00 PM AMBULATORY - PSYCHIATRY [facility] Mar 04, 2024 11:00 AM AMBULATORY - MEDICINE [facility] Mar 13, 2024 11:00 AM AMBULATORY - PSYCHIATRY [facility] Mar 20, 2024 09:00 AM AMBULATORY - PSYCHIATRY [facility] Mar 25, 2024 04:00 PM AMBULATORY - PSYCHIATRY [facility] Mar 25, 2024 06:00 PM AMBULATORY - MEDICINE [facility] Apr 08, 2024 02:00 PM AMBULATORY - PSYCHIATRY [facility] Apr 16, 2024 03:06 AM AMBULATORY - MEDICINE [facility] Apr 16, 2024 08:30 AM AMBULATORY - SURGERY . [facility] Apr 22, 2024 02:00 PM AMBULATORY - PSYCHIATRY [facility] Apr 22, 2024 03:30 PM AMBULATORY - MEDICINE [facility] Apr 27, 2024 02:45 PM AMBULATORY - SURGERY [facility] May 01, 2024 11:00 AM AMBULATORY - NONE [facility] Active, Pending, and Scheduled [...] CBC BLOOD STAT WC ONCE [facility] January 23, 2024 12:00 AM Laboratory - Chemistry Order LIPID PANEL (STL) GREEN LI/HEP BLD/PLAS PLASMA SP [facility] January 23, 2024 12:00 AM Laboratory - Chemistry Order HGA1C BLOOD SP [facility] January 23, 2024 12:00 AM Laboratory - Chemistry Order COMPREHENSIVE METABOLIC PANEL GREEN LI/HEP BLD/PLAS PLASMA SP [facility] January 23, 2024 12:00 AM Laboratory - Chemistry Order VITAMIN D, 25-HYDROXY GOLD/RED SST SERUM SP [facility] January 23, 2024 12:00 AM Laboratory - Chemistry Order B12 GOLD/RED SST SERUM SP [facility] January 23, 2024 12:00 AM Laboratory - Chemistry Order TSH (MA-PB) GOLD/RED SST SERUM SP [facility] Mar 06, 2024 12:00 AM Laboratory - Chemistry Order CBC (DIFF&PLT) BLOOD SP [facility] Mar 06, 2024 12:00 AM Laboratory - Chemistry Order COMPREHENSIVE METABOLIC PANEL BLOOD PLASMA SP [facility] Mar 06, 2024 12:00 AM Laboratory - Chemistry Order URINALYSIS URINE SP [facility] Mar 06, 2024 12:00 AM Laboratory - Chemistry Order LIPID PANEL BLOOD PLASMA [facility] Mar 06, 2024 12:00 AM Laboratory - Chemistry Order TSH-G,LC,J,T BLOOD PLASMA [facility] Mar 06, 2024 12:00 AM Laboratory - Chemistry Order HEMOGLOBIN %A1C PROFILE BLOOD SP [facility] Mar 06, 2024 12:00 AM Laboratory - Chemistry Order MICROALBUMINURIA(IVONNE) URINE SP [facility] Lab Results: +/- 30 days of the encounter This section includes the Chemistry and Hematology Lab Results on record with [place] for the patient. Radiology Reports and Pathology [...] 2024 04:42 PM Reporting Lab: [facility] [address] [facility] [address] Performing Lab: [facility] [address] [facility] [address] HGA1C 5.3 4.0-6.0 Mar 01, 2024 09:06 PM [facility] LIPID PANEL (STL) PLASMA Specimen Type: PLASM A Comment: No hemolysis noted. Ordering Provider: ROYA CARTAGENA Report Released Date/Time: Feb 24, 2024 04:42 PM Reporting Lab: [facility] [address] [facility] [address] Performing Lab: [address] [address] CHOLESTEROL 174 mg/dL 0-200 TRIGLYCERIDE 220 mg/dL H 0-150 CALCULATED LDL 98 mg/dL HDL(New) 32 mg/dL L >40 Mar 01, 2024 09:06 PM [facility] COMPREHENSIVE METABOLIC PANEL PLASMA Specimen Type: PLASMA Comment: No hemolysis noted. Ordering Provider: ROYA CARTAGENA Report Released Date/Time: Feb 24, 2024 04:42 PM Reporting Lab: [address] [address] Performing Lab: [address] [address] CREATININE 1.33 mg/dL H 0.7-1.3 UREA NITROGEN [...] Feb 24, 2024 04:42 PM Reporting Lab: [address] [address] Performing Lab: [place] [address] [facility] [address] URINE COLOR Light-Yellow Yellow U.BILIRUBIN Negative mg/dL [...] 1.025 1.005-1.029 Mar 01, 2024 09:06 PM [facility] CBC BLOOD Specimen Type: BLOOD No comment entered. Ordering Provider: ROYA CARTAGENA Report Released Date/Time: Feb 24, 2024 04:42 PM Reporting Lab: [address] [address] Performing Lab: [address] [address] WBC 7.7 10*3/uL 3.6-11.2 RBC 5.34 10*6/uL [...] Jan 18, 2024 04:23 AM Reporting Lab: [address] [address] Performing Lab: [address] [address] INFLUENZA A Negative Negative INFLUENZA B Negative [...] moderate hemolysis. NOTIFIED VIRGEN OLIVAS RN @ 5529 ON 01/18/24 BY [facility] Ordering Provider: ADINA WALTON Report Released Date/Time: Jan 18, 2024 04:23 AM Reporting Lab: [address] [address] Performing Lab: [address] [address] CREATININE 1.43 mg/dL H 0.7-1.3 UREA NITROGEN [...] 65.9 >60 Jan 18, 2024 04:22 AM [facility] CBC BLOOD Specimen Type: BLOOD No comment entered. Ordering Provider: ADINA WALTON Report Released Date/Time: Jan 18, 2024 04:23 AM Reporting Lab: [facility] [address] [facility] [address] Performing Lab: [place] [id number] [facility] [address] WBC 8.4 10*3/uL 3.6-11.2 RBC 5.61 10*6/uL [...] PANEL Not Performed: Jan 18, 2024@05:09 by *AUTOMOTIVE ELECTRICAL HELPER Reason: DUPLICATE SPECIMEN ORDER. SEE ORDER [id number] Aspartate Transaminase result may show positive bias due to hemolysis. K result canceled due to hemolysis. Specimen moderately hemolyzed. Ordering Provider: ADINA WALTON Report Released Date/Time: Jan 18, 2024 04:36 AM Reporting Lab: [facility] [address] [facility] [address] Performing Lab: [facility] [address] [facility] [address] GGT GAMMA-GT 99 [IU]/L H 12-64 Jan 18, 2024 04:22 AM [facility] LIPASE PLASMA Specimen Type: PLASM A Comment: *COMPREHENSIVE METABOLIC PANEL Not Performed: Jan 18, 2024@05:09 by *AUTOMOTIVE ELECTRICAL HELPER Reason: DUPLICATE SPECIMEN ORDER. SEE ORDER [id number] Aspartate Transaminase result may show positive bias due to hemolysis. K result canceled due to hemolysis. Specimen moderately hemolyzed. Ordering Provider: ADINA WALTON Report Released Date/Time: Jan 18, 2024 04:36 AM Reporting Lab: [place] [address] [facility] [address] Performing Lab: [place] [address] [facility] [address] LIPASE 34 U/L 8-78 Vital Signs: All taken on the encounter date This section contains inpatient and outpatient Vital Signs collected on the date of the Encounter. Date/Time Temperature Pulse Blood Pressure Respiratory Rate SP02 Pain Height Weight Body Mass Index Source February 03, 2024 08:26 AM 97.3 82 116/74 16 97 0 248.[address] [facility] Social History: Smoking Status (Most current) and Tobacco Use (All prior to encounter date) This section includes the most current, and the historical, smoking and tobacco- related health factors from the [place] facility where the Encounter took place. Current Smoking Status This section includes the most current smoking, or tobacco-related health factor, from the [place] facility where the Encounter took place. Date/Time Current Smoking Status Comment Shameka martínez Jan 08, 2024 04:16 PM VA-TOBACCO FORMER USER [facility] Tobacco Use History This section includes a history of the smoking, or tobacco-related health factors, that were collected on or before the date of the Encounter. The data comes from the [place] facility where the Encounter took place. Date/Time Smoking Status/Tobacco Use Comment F acility Jan 08, 2024 04:16 PM VA-TOBACCO QUIT 15 YRS OR MORE [facility] Dec 18, 2023 09:41 AM VA-TOBACCO FORMER USER [facility] Dec 18, 2023 09:41 AM VA-TOBACCO QUIT 1 TO < 5 YRS [facility] Advance Directives: All historical and current Section Date Range: From patient's date of to the date document was created. This section includes ALL of a patient's completed or amended [place] Advance and Rescinded Directives. The entries below indicate that a directive exists for the patient, but an actual copy is not included with this document. The data comes from all [place] facilities. Date Advance Directives Provider Source Aug 28, 2023 ADVANCE DIRECTIVE NO TIFICATION AND SCREENING SYLWIA SANTIAGO [facility] May 14, 2023 ADVANCE DIRECTIVE NO TIFICATION AND SCREENING SYLWIA SANTIAGO [facility] Encounter Notes: All associated encounter notes This section contains the clinical notes associated to the Encounter. Date/Time Encounter Note(s) Provider Source February 03, 2024 09:18 AM ADMINISTRATIVE NOTE: LOCAL TITLE: SCHEDULING NOTE STL STANDARD TITLE: ADMINISTRATIVE NOTE DATE OF NOTE: FEBRUARY 03, 2024@09:18 ENTRY DATE: FEBRUARY 03, 2024@09:18:36 AUTHOR: RICHIE RAI COSIGNER: URGENCY: STATUS: COMPLETED GI Nursing Scheduling/Education: Planned procedure: Esophagogastroduodenoscopy (EGD) Procedure scheduled on: January Planned procedure was discussed with . Patient Instructions: The day prior to your endoscopy you should be on a soft diet all day. No fresh fruits or vegetables. Soups and simple sandwiches are OK. If you have gastroparesis you should remain on a clear liquid diet the entire day. Nothing by mouth after midnight. Take blood pressure and heart medications with a small sip of water. Your utility driver must accompany you to the GI lab on the day of procedure and will need to stay for the duration of the appointment. Patient verbalizes understanding of all information discussed. Copy of instructions and overview of consent given to . Reviewed using Chelis to assist with procedure preparation with who declined use at this time /cydney/ REYES Scott, RN GI Signed: 02/03/2024 09:19 RICHIE RAI Urmila [facility] February 03, 2024 08:35 AM GASTROENTEROLOGY CONSULT: LOCAL TITLE: GASTROENTEROLOGY OUTPATIENT CONSULT [facility] STANDARD TITLE: GASTROENTEROLOGY CONSULT DATE OF NOTE: FEBRUARY 03, 2024@08:35 ENTRY DATE: FEBRUARY 03, 2024@08:35:34 AUTHOR: JUSTYN EDWARDS COSIGNER: URGENCY: STATUS: COMPLETED CC:epig pain, elev LFTs HPI: Pt. is a 33 y/o WHITE MALE c/o abd pain over last 1.5 years. Had epig pain after BBQ which woke from sleep. Went to ER and was told he had gastritis. Almost weekly pain. severe, upper abd. Has N/V associated. 9/[address] scan as well as U/S and HIDA[facility] [place] [facility] at [facility]. Has been on prilosec and famotidine which didn't help. I found u/s which showed cholelithiasis in 2023. ROS: Review of systems is as per HPI and additionally notable for Constitutional: No fever, No weakness/ fatigue Cardiovascular: No chest pain, No palpitations Respiratory: No shortness of breath, No cough Genitourinary: No dysuria, No polyuria Neurology: No headache, No tremors Musculoskeletal: No joint pain, No back pain Skin: No rash, No itching Psychiatric: No anxiety, No depression 10-point ROS is otherwise negative. PMHx: Reviewed. Notable for 1) Depressive disorder 2) Sleep disorder 3) [...] 17) Allergic rhinitis 18) Vitamin D deficiency Active Outpatient Medications Refills Expiration === 1) BUPROPION HCL 150MG 24HR SA TAB Qty: 90 ACTIVE Issu:01-23-24 for 90 days Sig: TAKE ONE TABLET BY Refills: 0 Last:01-24-24 MOUTH EVERY MORNING FOR DEPRESSION Expr:04-22-24 SWALLOW WHOLE - DO NOT CRUSH OR CHEW. 2) ONDANSETRON 4MG ORAL DISINTEGRATING TAB ACTIVE Issu:03-14-23 Qty: 60 for 30 days Sig: TAKE ONE Refills: 0 Last:01-26-24 TABLET UNDER THE TONGUE EVERY EIGHT(8) Expr:03-14-24 HOURS NEEDED FOR NAUSEA/VOMITING FHx: No colon CA or polyps. No IBD. No liver, stomach or pancreatic disease. SHx: Smoking-no EtOH-no Drugs-no Vitals-97.3 F [36.3 C] (02/03/2024 08:26)82 (02/03/2024 08:26)116/74 (02/03/2024 08:26)16 (02/03/2024 08:26) Measurement DT POx (L/MIN)(%) 02/03/2024 08:26 97 01/23/2024 14:29 97 01/18/2024 04:22 100 03/13/2023 10:24 95 31.9 WNWDM in NAD anicteric RRR clear +BS soft/NT/ND No LE edema A+O*3, nl mood Hemoccult:No FOBT EO data found LABS: Hgb HGB 16.1 g/dL 01/18/2024 04:22 Hct 47.9 % (01/18/24 04:22) MCV 85.4 fL (01/18/24 04:22) Plt PLT 215 10*3/uL 01/18/2024 04:22 Iron, TIBC No IRON & TIBC EO data found Subhash No FERRITIN EO data found BUN 12.9 mg/dL (01/18/24 04:22) Cr CREATININE 1.43 H mg/dL 01/18/2024 04:22 Alb ALBUMIN 4.3 g/dL 01/18/2024 04:22 Ca 10.1 mg/dL (01/18/24 04:22) TSH TSH 2.590 uIU/mL 03/02/2022 12:18 Vit D VITAMIN D, 25-HYDROXY 21.4 L ng/mL 01/01/2023 10:25 ALT 37 U/L (01/18/24 04:22) AST 62 U/L H (01/18/24 04:22) TB TOTAL BILIRUBIN 0.9 mg/dL 01/18/2024 04:22 AP ALKALINE PHOSPHATASE 90 U/L 01/18/2024 04:22 INR No INR EO data found LAB CUMULATIVE SELECTED 2 Collection DT Spec CHOL TRIG CalcLDL HDL a 01/01/2023 10:25 PLASM 184 109 130 32 L 01/01/2023 10:25 BLOOD HGA1C 5.4 % Impression for CHEST PORTABLE, 03/11/23, case 168 Normal AP chest. READING PHYSICIAN: Dawson Gonzales -[id number] 03/11/2023 18:41 CDT [facility] [employer] [facility] Impression for CT ABDOMEN AND PELVIS W/O CONTRAST, 02/04/23, case 106 No acute abnormality in the abdomen or pelvis. READING PHYSICIAN: Seven Recio MD -[id number] 02/04/2023 2:22 PDT [facility] [employer] [facility] [phone] (For Medical Practitioner Use Only) Attention Patients / Veterans: If you have questions or concerns about these test results, please contact your ordering provider IMP: Epigastric pain associated with N/V Symptomatic gallstones Elevated LFTs - episodic Fatty liver - MAFLD REC: Has clear biliary colic with at least one episode of elevated LFTs concerning for possible CBD stone. Has an uncle with gallstones. Last LFTs have been ok though likely has fatty liver - non-alcohol related. Needs lap ying with IOC. As he has been told that he should have an EGD, I will schedule this for his reflux symptoms, but this should not delay his cholecystectomy. He has been on PPI and H2B without relief of these abd pain episodes. Minimize caffeine, carboanted dbeverages, and alcohol which worsen reflux. Encouraged exercise for his fatty liver. Benefits, risks, and alternative tests described to patient and he/she agrees to proceed. The patient was instructed to call the GI lab on the 6th floor of [facility] at [phone] or [phone] if questions or concerns arise. Informed consent performed verbally during office visit. Patient is advised to seek medical attention in the ER for chest pain, shortness of breath, changes in your thinking or moving, changes in blood pressure (very high or very low) bleeding, severe abdominal pain, or other severe/concerning changes in health status. 02/04/2024 15:30 [facility] PCMHI BRUNNER 02/19/2024 13:00 [facility]CARDIOLOGY STRESS 03/05/2024 09:30 [facility]-PACT PHONE E4 PCP 1 04/16/2024 14:00 [facility]HW CHIRO CONSULT 8TH F 08/25/2024 10:30 [facility]-PACT E4 PCP Medication list was reviewed with the patient or care-auto damage appraiser, any discrepancies were resolved and the patient was given an updated list. The patient was provided written information with my name, contact phone number, fax, GI lab number and email address. Patient was instructed to contact me with issues/questions/concerns. Written instructions with plans for meds/lab/imaging/procedures was provided to ensure compliance with the above stated plan. Please note that this dictation was completed with computer voice recognition software, often unanticipated grammatical, syntax and other interpretive errors are inadvertently transcribed by the computer software. Please disregard these errors /es/ Justyn Edwards M.D. [employer] Signed: 02/03/2024 09:00 JUSTYN EDWARDS [facility]
--- OUTSIDE RECORDS SUMMARY | 2025-01-15 07:41 | XMS_ITS | Encounter Summary ---
Author Name [facility] [place] Organization [place] Address [address] [place] [address] Care Team Providers Care Ell Tutor Name Role Phone BROOKLYN ARAGON Primary Care [...] FOCUS FAMIL Y Oct 08, 2021 132 [id number] [phone] REISING,T YLER PATIENT CAREMARK ([id number])RX PRESCRIPT ION GEHA Oct 04, 2024 [id number] [phone] REISING,T YLER PATIENT CAREMARK FEP [id number] PRESCRIPT ION FEPRX Aug 16, 2019 [id number] [phone] REISING,T YLER PATIENT GEHA PREFERRED PROVIDER ORGANIZAT ION (PPO) GEHA STAND EVELYN Oct 04, 2024 [id number] REISING,T YLER PATIENT Selected Encounter This section includes the information on record at [place] for the Encounter. Date/Time Encounter Type Encounter Description Reason Provider Source May 28, 2024 02:18 PM Outpatient Encounter OCCUPATIONAL HEALTH ICD-10-CM Z02.9 Encounter for administrative examinations, unspecified SUNEDIE IHE Encounter Template Text not used by [place] Assessments - Encounter Diagnoses This section includes the primary and secondary diagnoses documented for the Encounter. Date/Time Primary/Secondary Diagnosis Diagnosis Name Provider Source May 28, 2024 02:33 PM PRIMARY Encounter for administrative examinations, unspecified SUN,EDIE [facility] Plan of Treatment: Future Appointments (+ 6 months) and Future Tests (+/- 45 days) The Plan of Treatment section includes future care activities for the patient from all [place] [facility]. This section includes future appointments and future orders which are active, pending or scheduled. Future Appointments This section includes appointments that were scheduled to occur 6 months from the date of the Encounter, up to a maximum of 20 appointments. The data comes from all [facility]. Appointment Date/Time Appointment Type Appointme nt Facility Name Jun 03, 2024 11:30 AM AMBULATORY - SURGERY [facility] Jun 11, 2024 01:00 PM AMBULATORY - PSYCHIATRY [facility] Jun 29, 2024 03:00 PM AMBULATORY - NONE [facility] Jul 17, 2024 01:24 PM AMBULATORY - MEDICINE [facility] Jul 22, 2024 10:30 AM AMBULATORY - MEDICINE [facility] Jul 24, 2024 04:14 AM AMBULATORY - MEDICINE [facility] Aug 07, 2024 03:00 PM AMBULATORY - MEDICINE [facility] Oct 07, 2024 04:15 PM AMBULATORY - MEDICINE [facility] Oct 10, 2024 05:20 AM AMBULATORY - MEDICINE [facility] Active, Pending, and Scheduled Orders This section includes a listing of several types of active, pending, and scheduled orders, including clinic medications orders, diagnostic test orders, procedure orders and consult orders; where the start date of the order is 45 days before the date of the Encounter or 45 days after the date of theEncounter. The data comes from all [facility]. Test Date/Time Test Type Test Details Facility Name Apr 16, 2024 11:39 AM Laboratory - Chemi stry Order MRSA SURVL NARES DNA [facility] Apr 18, 2024 09:38 AM Laboratory - Chemi stry Order MRSA SURVL NARES DNA [facility] Jun 29, 2024 12:00 AM Laboratory - Chemi stry Order VITAMIN D, 25-HYDROXY GOLD/RED SST SERUM SP [facility] Social History: Smoking Status (Most current) and Tobacco Use (All prior to encounter date) This section includes the most current, and the historical, smoking and tobacco- related health factors from the [facility] where the Encounter took place. Current Smoking Status This section includes the most current smoking, or tobacco-related health factor, from the [place] facility where the Encounter took place. Date/Time Current Smoking Status Comment Facil ity Jan 08, 2024 04:16 PM VA-TOBACCO FORMER USER [facility] Tobacco Use History This section includes a history of the smoking, or tobacco-related health factors, that were collected on or before the date of the Encounter. The data comes from the [place] facility where the Encounter took place. Date/Time Smoking Status/Tobacco Use Comment F acility Jan 08, 2024 04:16 PM VA-TOBACCO QUIT 15 YRS OR MORE [facility] Dec 18, 2023 09:41 AM VA-TOBACCO FORMER USER [facility] Dec 18, 2023 09:41 AM VA-TOBACCO QUIT 1 TO < 5 YRS [facility] Advance Directives: All historical and current [...] DIRECTIVE NO TIFICATION AND SCREENING SYLWIA SANTIAGO [facility] May 14, 2023 ADVANCE DIRECTIVE NO TIFICATION AND SCREENING SYLWIA SANTIAGO [facility] Radiology Reports: +/- 30 days [...] LUMBAR SPINE W/ O CONT: MERLE LAFLEUR [id number] -1990 M Exm Date: MAY 20, 2024@14:53 Req Phys: SOBIA SORENSEN Loc: [facility]-NEUROSURGERY RN SCHOOL 1 (Req'g Lo Img Loc: [facility]-CT IMAGING [facility] Service: [address] [address] (Case [id number] COMPLETE) CT LUMBAR SPINE W/O CONT (CT Detailed) CPT:16847 Reason for Study: F/u L2, L3 compression fractyre Clinical History: Responsible Attending: Valarie Attending Contact Number: [phone] Resident Contact Number: Allergies listed in CPRS chart: Patient has answered NKA Creatinine: CREATININE 1.22 mg/dL 04/17/2024 20:00 /eGFR: STL EGFR (within one year). CREATININE 1.22 mg/dL (04/17/24 20:00) Wt: 241 lb [109.32 kg] (04/27/2024 14:41) History of: Renal failure, chronic or acute renal disease: NO Report Status: Verified Date Reported: MAY 21, 2024 Date Verified: MAY 21, 2024 Chute Loader E-Sig:/ES/Ronaldo Velasquez MD. FACR. Report: History: F/u [...] Interpreting Staff: Ronaldo Velasquez MD. FACR, Neuroradiologist (Chute Loader) /RONALDO ARZATE [facility] May 15, 2024 09:10 AM BONE DENSITY-P: MERLE LAFLEUR [id number] -1990 M Exm Date: MAY 15, 2024@09:10 Req Phys: VALARIESOBIA Pat Loc: [facility]-NEUROSURGERY RN SCHOOL 1 (Req'g Lo Img Loc: [facility]-BONE DENSITY Service: Unknown [facility] [address] [place] [address] (Case [id number] COMPLETE) NM BONE DENSITY(DXA), AXIAL SKELE(NM Detailed) CPT:78214 Reason for Study: L2, L3 comprerssion (Case [id number] COMPLETE) NM BONE DENSITY(DXA), APPENDICULA(NM Detailed) CPT:84791 Clinical History: BONE DENSITY Osteoporosis and Vertebral Fracture Screening Information Reason for exam: Compression fracture WT: 241 lb [109.32 kg] (04/27/2024 14:41) HT: 74 in [188.0 cm] (04/27/2024 14:41) Report Status: Verified Date Reported: MAY 15, 2024 Date Verified: MAY 15, 2024 Chute Loader E-Sig:/ES/Leticia Childs M.D. Report: Dual -Energy X-ray Absorptiometry (DXA) with Trabecular Bone Score (TBS) calculation Findings: Bone mineral density measurements of the forearm, proximal femur and lumbar spine with their appropriate regions of interest outlined are available for viewing in [employer] and Radiology Viewer. Lumbar spine: Measured [...] Staff: Leticia Childs M.D., NUCLEAR MEDICINE PHYSICIAN (Chute Loader) /LETICIA LOYA [facility] May 01, 2024 09:48 AM MRI SPINE LUMBAR W /O CONT: MERLE LAFLEUR [id number] -1990 M Exm Date: MAY 01, 2024@09:48 Req Phys: SOBIA SORENSEN Loc: [facility]NEUROSURGERY RN SCHOOL 1 (Req'g Lo Img Loc: [facility]-MAG[facility]ING Service: [address] [address] (Case [id number] COMPLETE) MRI SPINE LUMBAR W/O CONT (MRI Detailed) CPT:18073 Reason for Study: Low back pain. L2, [...] Apr Responsible Attending: Valarie Attending Contact Number: [phone] Resident Contact Number: Does your patient have [...] 01, 2024 Date Verified: MAY 01, 2024 Chute Loader E-Sig:/ES/MONICA DUARTE Report: INDICATION: Low back pain. [...] above. Primary Interpreting Staff: MONICA DUARTE, RADIOLOGIST (Chute Loader) /MONICA ROJAS [facility] Encounter Notes: All associated encounter notes This section contains the clinical notes associated to the Encounter. Date/Time Encounter Note(s) Provider Source May 28, 2024 02:18 PM OCCUPATIONAL MEDIC INE NOTE: LOCAL TITLE: EMPLOYEE HEALTH NOTE STANDARD TITLE: OCCUPATIONAL MEDICINE NOTE DATE OF NOTE: MAY 28, 2024@14:18 ENTRY DATE: MAY 28, 2024@14:18:26 AUTHOR: EDIE KEITH EXP COSIGNER: URGENCY: STATUS: COMPLETED You may not VIEW this COMPLETED EMPLOYEE HEALTH NOTE. EDIE KEITH [facility]
--- OUTSIDE RECORDS SUMMARY | 2025-01-15 07:41 | XMS_ITS | Encounter Summary ---
Author Name [facility] [place] [facility] [place] Organization [facility] [place] Address [address] [place] [address] Care Team Providers Care Dampproofer Name Role Phone BROOKLYN ARAGON Primary Care [...] FOCUS FAMIL Y Oct 08, 2021 132 [id number] [phone] REISING,T YLER PATIENT CAREMARK ([id number])RX PRESCRIPT ION GEHA Oct 04, 2024 [id number] [phone] REISING,T YLER PATIENT CAREMARK FEP [id number] PRESCRIPT ION FEPRX Aug 16, 2019 [id number] [phone] REISING,T YLER PATIENT GEHA PREFERRED PROVIDER ORGANIZAT ION (PPO) GEHA STAND EVELYN Oct 04, 2024 [id number] REISING,T YLER PATIENT Selected Encounter This section includes the information on record at [place] for the Encounter. Date/Time Encounter Type Encounter Description Reason Provider Source May 18, 2024 08:25 AM Outpatient Encounter ADMIN PAT ACTIVTIES (MASNONCT) MARK TIAN S E Encounter Template Text not used by [place] Plan of Treatment: Future Appointments (+ 6 months) and Future Tests (+/- 45 days) The Plan of Treatment section includes future care activities for the patient from all [place] [facility]. This section includes future appointments and future orders which are active, pending or scheduled. Future Appointments This section includes appointments that were scheduled to occur 6 months from the date of the Encounter, up to a maximum of 20 appointments. The data comes from all [facility]. Appointment Date/Time Appointment Type Appointme nt Facility Name May 20, 2024 03:30 PM AMBULATORY - NONE [facility] May 28, 2024 02:00 PM AMBULATORY - PSYCHIATRY [facility] Jun 03, 2024 11:30 AM AMBULATORY - SURGERY [facility] Jun 11, 2024 01:00 PM AMBULATORY - PSYCHIATRY [facility] Jun 29, 2024 03:00 PM AMBULATORY - NONE [facility] Jul 17, 2024 01:24 PM AMBULATORY - MEDICINE [facility] Jul 22, 2024 10:30 AM AMBULATORY - [facility] Jul 24, 2024 04:14 AM AMBULATORY - MEDICINE [facility] Aug 07, 2024 03:00 PM [facility] Oct 07, 2024 04:15 PM AMBULATORY - MEDICINE [facility] Oct 10, 2024 05:20 AM AMBULATORY - MEDICINE [facility] Active, Pending, and Scheduled Orders This section includes a listing of several types of active, pending, and scheduled orders, including clinic medications orders, diagnostic test orders, procedure orders and consult orders; where the start date of the order is 45 days before the date of the Encounter or 45 days after the date of theEncounter. The data comes from all [facility]. Test Date/Time Test Type Test Details Facility Name Apr 16, 2024 11:39 AM Laboratory - Chemi stry Order MRSA SURVL [facility] DNA [facility] Apr 18, 2024 09:38 AM Laboratory - Chemi stry Order MRSA SURVL NARES DNA NARES [facility] Jun 29, 2024 12:00 AM Laboratory - Chemi stry Order VITAMIN D, 25-HYDROXY GOLD/RED SST SERUM SP [facility] Social History: Smoking Status (Most current) and Tobacco Use (All prior to encounter date) This section includes the most current, and the historical, smoking and tobacco- related health factors from the [place] facility where the Encounter took place. Current Smoking Status This section includes the most current smoking, or tobacco-related health factor, from the [place] facility where the Encounter took place. Date/Time Current Smoking Status Comment Facil ity Jan 08, 2024 04:16 PM VA-TOBACCO FORMER USER [facility] Tobacco Use History This section includes a history of the smoking, or tobacco-related health factors, that were collected on or before the date of the Encounter. The data comes from the [place] facility where the Encounter took place. Date/Time Smoking Status/Tobacco Use Comment F acility Jan 08, 2024 04:16 PM VA-TOBACCO QUIT 15 YRS OR MORE [facility] Dec 18, 2023 09:41 AM VA-TOBACCO FORMER USER [facility] Dec 18, 2023 09:41 AM VA-TOBACCO QUIT 1 TO < 5 YRS [facility] Advance Directives: All historical and current Section Date Range: From patient's date of to the date document was created. This section includes ALL of a patient's completed or amended [place] Advance and Rescinded Directives. The entries below indicate that a directive exists for the patient, but an actual copy is not included with this document. The data comes from all [facility]. Date Advance Directives Provider Source Aug 28, 2023 ADVANCE DIRECTIVE NO TIFICATION AND SCREENING SYLWIA SANTIAGO [facility] May 14, 2023 ADVANCE DIRECTIVE NO TIFICATION AND SCREENING SYLWIA SANTIAGO [facility] Radiology Reports: +/- 30 days of [...] the Encounter. The data comes from all [place] treatment facilities. Date/Time Radiology Report Provider Source May 20, 2024 02:[address] LUMBAR SPINE W/ O CONT: MERLE LAFLEUR [id number] -1990 M Exm Date: MAY 20, 2024@14:53 Req Phys: SOBIA SORENSEN Loc: [facility]-NEUROSURGERY ACCOUNTANT BUDGET 1 (Req'g Lo Img Loc: [facility]-CT IMAGING [facility] Service: Unknown [facility], [address] [address] [place] [address] (Case [id number] COMPLETE) CT LUMBAR SPINE W/O CONT (CT Detailed) CPT:57804 Reason for Study: F/u L2, L3 compression fractyre Clinical History: Responsible Attending: Valarie Attending Contact Number: [phone] Resident Contact Number: Allergies listed in CPRS chart: Patient has answered NKA Creatinine: CREATININE 1.22 mg/dL 04/17/2024 20:00 /eGFR: STL EGFR (within one year). CREATININE 1.22 mg/dL (04/17/24 20:00) Wt: 241 lb [109.32 kg] (04/27/2024 14:41) History of: Renal failure, chronic or acute renal disease: NO Report Status: Verified Date Reported: MAY 21, 2024 Date Verified: MAY 21, 2024 Steam Tender E-Sig:/ES/Ronaldo Velasquez MD. FACR. Report: History: F/u [...] Interpreting Staff: Ronaldo Velasquez MD. FACR, Neuroradiologist (Steam Tender) /RONALDO ARZATE [facility] May 15, 2024 09:10 AM BONE DENSITY-P: MERLE LAFLEUR [id number] -1990 M Exm Date: MAY 15, 2024@09:10 Req Phys: VALARIESOBIA Pat Loc: [facility]NEUROSURGERY ACCOUNTANT BUDGET 1 (Req'g Lo Img Loc: [facility]-BONE DENSITY Service: Unknown [facility], [facility] [address] [place] [address] (Case [id number] COMPLETE) NM BONE DENSITY(DXA), AXIAL SKELE(NM Detailed) CPT:79920 Reason for Study: L2, L3 comprerssion (Case [id number] COMPLETE) NM BONE DENSITY(DXA), APPENDICULA(NM Detailed) CPT:25765 Clinical History: BONE DENSITY Osteoporosis and Vertebral Fracture Screening Information Reason for exam: Compression fracture WT: 241 lb [109.32 kg] (04/27/2024 14:41) HT: 74 in [188.0 cm] (04/27/2024 14:41) Report Status: Verified Date Reported: MAY 15, 2024 Date Verified: MAY 15, 2024 Steam Tender E-Sig:/ES/Leticia Haas M.D. Report: Dual -Energy X-ray Absorptiometry (DXA) with Trabecular Bone Score (TBS) calculation Findings: Bone mineral density measurements of the forearm, proximal femur and lumbar spine with their appropriate regions of interest outlined are available for viewing in [employer] Imaging and Radiology Viewer. Lumbar spine: Measured [...] Staff: Leticia Haas M.D., NUCLEAR MEDICINE PHYSICIAN (Steam Tender) / LETICIA HAAS [facility] May 01, 2024 09:48 AM MRI SPINE LUMBAR W /O CONT: MERLE LAFLEUR [id number] -1990 M Exm Date: MAY 01, 2024@09:48 Req Phys: SOBIA SORENSEN Loc: [facility]NEUROSURGERY ACCOUNTANT BUDGET 1 (Req'g Lo Img Loc: [facility] Service: Unknown [facility] [address] [place] [address] (Case [id number] COMPLETE) MRI SPINE LUMBAR W/O CONT (MRI Detailed) CPT:96305 Reason for Study: Low back pain. L2, [...] Apr Responsible Attending: Valarie Attending Contact Number: [phone] Resident Contact Number: Does your patient have [...] 01, 2024 Date Verified: MAY 01, 2024 Steam Tender E-Sig:/ES/MONICA DUARTE Report: INDICATION: Low back [...] above. Primary Interpreting Staff: MONICA DUARTE, RADIOLOGIST (Steam Tender) /MONICA ROJAS [facility] Pathology Reports: +/- 30 days of [...] the Encounter. The data comes from all [place] treatment facilities. Date/Time Pathology Report Provider Source [...] seen, and no masses are grossly identified. Laboratory Administrative Director sections of the wall from the [...] Laboratory: Surgical Pathology Report Performed By: [address] CLIA# [id number] [address] [place] [id number] $FTR - - - - - - [...] - - MERLE LAFLEUR STANDARD FORM 515 ID:[id number] SEX:M :1990 AGE: 34 LOC:APFEE PCP: Jaswinder Villafuerte MD /cydney/ CHELI MORALES Pathologist Signed: 04/21/2024 11:44 [address] [facility] Encounter Notes: All associated encounter notes This section contains the clinical notes associated to the Encounter. Date/Time Encounter Note(s) Provider Source May 18, 2024 08:25 AM PHYSICIAN LETTERS: LOCAL TITLE: NO CONTACT LETTER ST STANDARD TITLE: PHYSICIAN LETTERS DATE OF NOTE: MAY 18, 2024@08:25 ENTRY DATE: MAY 18, 2024@08:25:24 AUTHOR: PRANAY QUIROZ COSIGNER: URGENCY: STATUS: COMPLETED [address] [address] MAY 18, 2024 MERLE LAFLEUR [address] [place], [place] [address] Dear Merle Lafleur, Thank you for choosing the [facility] as your primary choice for health care. As a partner in your health care, we are attempting to contact you because we have been unsuccessful in reaching you by phone to schedule your clinic appointment. Please call us at [phone], extension [phone] to speak to us regarding making an appointment in the ENDO clinic. Your good health is important to us. Please contact us within 2 weeks from the date of this letter. If we do not hear from you, we will notify your referring provider and a new referral will be required to schedule an appointment. IMPORTANT: Due to COVID-19 we have greatly expanded our telehealth options, please contact the clinic to inquire about scheduling. Sincerely, PRANAY QUIROZ ADVANCE GENERATION MANAGER MERLE LAFLEUR LATOYA A [facility]
--- OUTSIDE RECORDS SUMMARY | 2025-01-15 07:41 | XMS_ITS | Encounter Summary ---
Author Name [facility] Address [address] [place] [address] Care Team Providers Care Care Support Representative Name Role Phone BROOKLYN ARAGON Primary Care [...] FOCUS FAMIL Y Oct 08, [phone] [id number] [phone] REISING,T YLER PATIENT CAREMARK ([id number])RX PRESCRIPT ION GEHA Oct 04, 2024 [id number] [phone] REISING,T YLER PATIENT CAREMARK FEP [id number] PRESCRIPT ION FEPRX Aug 16, 2019 [id number] [phone] REISING,T YLER PATIENT GEHA PREFERRED PROVIDER ORGANIZAT ION (PPO) GEHA STAND EVELYN Oct 04, 2024 [id number] REISING,T YLER PATIENT Selected Encounter This section includes the information on record at [place] for the Encounter. Date/Time Encounter Type Encounter Description Reason Provider Source February 04, 2024 03:30 PM PSYTX W PT 30 MINUTES [facility] INDIV ICD-10-CM F33.1 Major depressive disorder, recurrent, moderate ANDRY PHILIPPE Karen Encounter Template Text not used by [place] Assessments - Encounter Diagnoses This section includes the primary and secondary diagnoses documented for the Encounter. Date/Time Primary/Secondary Diagnosis Diagnosis Name Provider Source February 04, 2024 04:09 PM PRIMARY Major depressive disorder, recurrent, moderate ANDRY PHILIPPE [facility] February 04, 2024 04:09 PM SECONDARY Anxiety disorder, unspecified ANDRY PHILIPPE [facility] Plan of Treatment: Future Appointments (+ 6 months) and Future Tests (+/- 45 days) The Plan of Treatment section includes [facility] care [facility] the [facility]. This section includes future appointments [...] 05, 2024 09:00 AM AMBULATORY - PSYCHIATRY [facility] February 07, 2024 08:00 AM AMBULATORY - SURGERY [facility] Feb 27, 2024 01:00 PM AMBULATORY - MEDICINE [facility] Feb 27, 2024 03:00 PM AMBULATORY - PSYCHIATRY [facility] Feb 28, 2024 07:09 PM AMBULATORY - MEDICINE [facility] Mar 03, 2024 02:00 PM AMBULATORY - PSYCHIATRY [facility] Mar 04, 2024 11:00 AM AMBULATORY - MEDICINE [facility] Mar 13, 2024 11:00 AM AMBULATORY - PSYCHIATRY [facility] Mar 20, 2024 09:00 AM AMBULATORY - PSYCHIATRY [facility] Mar 25, 2024 04:00 PM AMBULATORY - PSYCHIATRY [facility] Mar 25, 2024 06:00 PM AMBULATORY - MEDICINE [facility] Apr 08, 2024 02:00 PM AMBULATORY - PSYCHIATRY [facility] Apr 16, 2024 03:06 AM AMBULATORY - MEDICINE [facility] Apr 16, 2024 08:30 AM AMBULATORY - SURGERY . [facility] Apr 22, 2024 02:00 PM AMBULATORY - PSYCHIATRY [facility] Apr 22, 2024 03:30 PM AMBULATORY - MEDICINE [facility] Apr 27, 2024 02:45 PM AMBULATORY - SURGERY . L [facility] May 01, 2024 11:00 AM AMBULATORY - NONE [facility] May 15, 2024 09:30 AM AMBULATORY - SURGERY [facility] May 20, 2024 03:30 PM AMBULATORY - NONE [facility] Active, Pending, and Scheduled Orders This section includes a listing of several types of active, pending, and scheduled orders, including clinic medications orders, diagnostic test orders, procedure orders and consult orders; where the start date of the order is 45 days before the date of the Encounter or 45 days after the date of theEncounter. The data comes from all [facility]. Test Date/Time Test Type Test Details Facility Name Jan 18, 2024 04:36 AM Laboratory - Chemistry Order CBC BLOOD STAT WC ONCE [facility] January 23, 2024 12:00 AM Laboratory - Chemistry Order LIPID PANEL (STL) GREEN LI/HEP BLD/PLAS PLASMA [facility] January 23, 2024 12:00 AM Laboratory - Chemistry Order HGA1C BLOOD [facility] January 23, 2024 12:00 AM Laboratory - Chemistry Order COMPREHENSIVE METABOLIC PANEL GREEN LI/HEP BLD/PLAS PLASMA [facility] January 23, 2024 12:00 AM Laboratory - Chemistry Order VITAMIN D, 25-HYDROXY GOLD/RED SST SERUM [facility] January 23, 2024 12:00 AM Laboratory - Chemistry Order B12 GOLD/RED SST SERUM [facility] January 23, 2024 12:00 AM Laboratory - Chemistry Order TSH (MA-PB) GOLD/RED SST SERUM [facility] Mar 06, 2024 12:00 AM Laboratory - Chemistry Order CBC (DIFF&PLT) BLOOD SP [facility] Mar 06, 2024 12:00 AM Laboratory - Chemistry Order COMPREHENSIVE METABOLIC PANEL BLOOD PLASMA SP [facility] Mar 06, 2024 12:00 AM Laboratory - Chemistry Order URINALYSIS URINE SP [facility] Mar 06, 2024 12:00 AM Laboratory - Chemistry Order LIPID PANEL BLOOD PLASMA [facility] Mar 06, 2024 12:00 AM Laboratory - Chemistry Order TSH-G,LC,J,T BLOOD PLASMA [facility] Mar 06, 2024 12:00 AM Laboratory - Chemistry Order HEMOGLOBIN %A1C PROFILE BLOOD SP [facility] Mar 06, 2024 12:00 AM Laboratory - Chemistry Order MICROALBUMINURIA(IVONNE) URINE SP [facility] Lab Results: +/- 30 days [...] Comment Mar 01, 2024 09:06 PM [facility] HGA1C BLOOD Specimen Type: BLOOD No comment entered. Ordering Provider: ROYA CARTAGENA Report Released Date/Time: Feb 24, 2024 04:42 PM Reporting Lab: [facility] [address] [facility] [place] [place] [address] Performing Lab: [facility] [address] [facility] [place] [place] [address] HGA1C 5.3 4.0-6.0 Mar 01, 2024 09:06 PM [facility] LIPID PANEL (STL) PLASMA Specimen Type: PLASM A Comment: No hemolysis noted. Ordering Provider: ROYA CARTAGENA Report Released Date/Time: Feb 24, 2024 04:42 PM Reporting Lab: [facility] [address] [facility] [place] [place] [place] [address] Performing Lab: [facility] [address] [facility] [place] [place] [place] [address] CHOLESTEROL 174 mg/dL 0-200 TRIGLYCERIDE 220 mg/dL H 0-150 CALCULATED LDL 98 mg/dL HDL(New) 32 mg/dL L >40 Mar 01, 2024 09:06 PM [facility] COMPREHENSIVE METABOLIC PANEL PLASMA Specimen Type: PLASMA Comment: No hemolysis noted. Ordering Provider: ROYA CARTAGENA Report Released Date/Time: Feb 24, 2024 04:42 PM Reporting Lab: [address] [address] Performing Lab: [address] [address] CREATININE 1.33 mg/dL H 0.7-1.3 UREA NITROGEN [...] PM Reporting Lab: [facility] [address] [facility] [place] [place] [place] [address] Performing Lab: [address] [address] URINE COLOR Light-Yellow Yellow U.BILIRUBIN Negative mg/dL [...] 1.005-1.029 Mar 01, 2024 09:06 PM [facility] CBC BLOOD Specimen Type: BLOOD No comment entered. Ordering Provider: ROYA CARTAGENA Report Released Date/Time: Feb 24, 2024 04:42 PM Reporting Lab: [facility] [address] [facility] [address] Performing Lab: [place] [id number] [facility] [place] [place] [address] WBC 7.7 10*3/uL 3.6-11.2 RBC 5.34 10*6/uL [...] AM Reporting Lab: [facility] [address] [facility] [place] [place] [place] [address] Performing Lab: [address] [address] INFLUENZA A Negative Negative INFLUENZA B Negative [...] moderate hemolysis. NOTIFIED VIRGEN OLIVAS RN @ 4248 ON 01/18/24 BY [facility] Ordering Provider: ADINA WALTON Report Released Date/Time: Jan 18, 2024 04:23 AM Reporting Lab: [address] [address] Performing Lab: [address] [address] CREATININE 1.43 mg/dL H 0.7-1.3 UREA NITROGEN [...] 04:22 AM [facility] CBC BLOOD Specimen Type: BLOOD No comment entered. Ordering Provider: ADINA WALTON Report Released Date/Time: Jan 18, 2024 04:23 AM Reporting Lab: [facility] [address] [address] Performing Lab: [facility] [address] [facility] [place] [place] [place] [address] WBC 8.4 10*3/uL 3.6-11.2 RBC 5.61 10*6/uL [...] 0.00-0. 20 Jan 18, 2024 04:22 AM [facility] GGT GAMMA-GT PLASMA Specimen Type: PLASM A Comment: *COMPREHENSIVE METABOLIC PANEL Not Performed: Jan 18, 2024@05:09 by *WELT TREATER Reason: DUPLICATE SPECIMEN ORDER. SEE ORDER [id number] Aspartate Transaminase result may show positive bias due to hemolysis. K result canceled due to hemolysis. Specimen moderately hemolyzed. Ordering Provider: ADINA WALTON Report Released Date/Time: Jan 18, 2024 04:36 AM Reporting Lab: [facility] [address] [facility] [place] [place] [place] [place] [place] [address] Performing Lab: [facility] [address] [address] GGT GAMMA-GT 99 [IU]/L H 12-64 Jan 18, 2024 04:22 AM [facility] LIPASE PLASMA Specimen Type: PLASM A Comment: *COMPREHENSIVE METABOLIC PANEL Not Performed: Jan 18, 2024@05:09 by *WELT TREATER Reason: DUPLICATE SPECIMEN ORDER. SEE ORDER [id number] Aspartate Transaminase result may show positive bias due to hemolysis. K result canceled due to hemolysis. Specimen moderately hemolyzed. Ordering Provider: ADINA WALTON Report Released Date/Time: Jan 18, 2024 04:36 AM Reporting Lab: [facility] [address] [address] [address] Performing Lab: [facility] [address] [address] LIPASE 34 U/L 8-78 Social History: Smoking Status (Most current) and [...] Shameka ity Apr 18, 2022 11:00 AM [place]-TOBACCO FORMER USER [facility] Tobacco Use History This section includes a history of the smoking, or tobacco-related health factors, that were collected on or before the date of the Encounter. The data comes from the [place] facility where the Encounter took place. Date/Time Smoking Status/Tobacco Use Comment F acility Apr 18, 2022 11:00 AM [place]-TOBACCO QUIT 1 TO < 5 YRS [facility] Advance Directives: All historical and current Section [...] DIRECTIVE NO TIFICATION AND SCREENING SYLWIA SANTIAGO [facility] May 14, 2023 ADVANCE DIRECTIVE NO TIFICATION AND SCREENING SYLWIA SANTIAGO [facility] Encounter Notes: All associated encounter notes This section contains the clinical notes associated to the Encounter. Date/Time Encounter Note(s) Provider Source February 04, 2024 03:51 PM MENTAL HEALTH DIAG NOSTIC STUDY NOTE: LOCAL TITLE: MENTAL HEALTH DIAGNOSTIC STUDY STANDARD TITLE: MENTAL HEALTH DIAGNOSTIC STUDY NOTE DATE OF NOTE: FEBRUARY 04, 2024@15:51:41 ENTRY DATE: FEBRUARY 04, 2024@15:51:41 AUTHOR: CLAIRE PHILIPPE EXP COSIGNER: URGENCY: STATUS: COMPLETED Assessments were sent to the Seney via text/email. These assessments were completed by MERLE LAFLEUR on their own device on 02/04/2024 3:50:40 PM. PATIENT HEALTH QUESTIONNAIRE-9 (PHQ-9) The patient reported symptoms consistent with a major depressive episode. Patient reported being bothered by the following over the last 2 weeks: 1. Little interest or pleasure: More than half the days 2. Feeling down, depressed or hopeless: Several Days 3. Trouble sleeping: Nearly every day 4. Tired, low energy: Nearly every day 5. Poor appetite, over-eating: Several Days 6. Feelings of failure, guilt: Several Days 7. Trouble concentrating: More than half the days 8. Motor retardation, agitation: More than half the days 9. Thoughts better off /hurting self: Not at all PHQ-9 total score = 15 1-4 = minimal symptoms 5-9= mild symptoms 10-14= moderate symptoms 15-19= moderately severe symptoms 20-27= severe depressive symptoms The patient stated that the depressive symptoms made it somewhat difficult to work, take care of things at home, or get along with others. GENERAL ANXIETY DISORDER-7 (CARLOS-7) Patient reported being bothered by the following over the last two weeks: 1. Feeling nervous, anxious or on edge: Nearly every day 2. Not being able to stop or control worrying: More than half the days 3. Worrying too much about different things: More than half the days 4. Trouble relaxing: More than half the days 5. Feeling restless (hard to sit still): More than half the days 6. Becoming easily annoyed or irritable: Nearly every day 7. Afraid as if something awful might happen: More than half the days CARLOS-7 total score = 16 0-4=minimal symptoms 5-9=mild symptoms 10-14=moderate symptoms 15-21=severe symptoms The patient stated that the anxiety symptoms made it somewhat difficult to work, take care of things at home, or get along with others. /cydney/ CLAIRE PHILIPPE, PHD Staff Psychologist, [facility] Signed: 02/04/2024 16:19 CLAIRE PHILIPPE [facility] February 04, 2024 09:04 AM MENTAL HEALTH CONS ULT: [facility] TITLE: PRIMARY CARE MENTAL HEALTH INTEGRATION CONSULT STANDARD TITLE: MENTAL HEALTH CONSULT DATE OF NOTE: FEBRUARY 04, 2024@09:04 ENTRY DATE: FEBRUARY 04, 2024@09:04:44 AUTHOR: CLAIRE PHILIPPE EXP COSIGNER: URGENCY: STATUS: COMPLETED PRIMARY CARE-MENTAL HEALTH INTEGRATION (PC-MHI) FUNCTIONAL ASSESSMENT NAME: MERLE LAFLEUR DATE OF : Feb DIAGNOSIS BEING TREATED: Depressive disorder (SCT [id number]) - Major depressive disorder, recurrent, moderate (ICD-10-CM F33.1) (Primary) Anxiety (SCT [id number]) - Anxiety disorder, unspecified (ICD-10-CM F41.9) CPT Code: 04665 SERVICE CONNECTION: Service Connected: 100% Rated Disabilities: TINNITUS (10% SC) IMPAIRED HEARING (0% SC) LOWER LEG CONDITION (10% SC) LIMITED FLEXION OF KNEE (10% SC) RESIDUALS OF HEPATITIS (0% SC) SLEEP APNEA SYNDROMES (50% SC) LIMITED MOTION OF ARM (20% SC) MIGRAINE HEADACHES (30% SC) MAJOR DEPRESSIVE DISORDER (30% SC) HIATAL HERNIA (10% SC) LUMBOSACRAL OR CERVICAL STRAIN (20% SC) DEFORMITY OF THE PENIS (0% SC) FLAT FOOT CONDITION (50% SC) Length of Visit: 30 minutes [ ]Warm Hand-Off [X]Scheduled Visit [ ]Walk-in Modality of Treatment: [ ]In-Person [X] VVC [ ]Phone PROCEDURES: Brief Behavioral Health Assessment. Informed about *limits to confidentiality - charting/consultation with medical team - actions for safety of self/dependents *duration and purpose of this appointment as well as the potential risk, benefits, and complications of participating in treatment. The expressed understanding and consented to participate in services. Clinical Reminders are Due: No Urgency of need for care: [X] Routine [ ] Stat Appropriate setting for care: [X] Outpatient [ ] ER REASON FOR REFERRAL: PCP BETITO referred this patient to Primary Care Psychology for a brief behavioral health assessment to address issues related to: depression Presenting Problem (Detail symptoms): reports that in addition to depression, anxiety is through the roof Problem History (Duration/Frequency/Intensi ty): anxiety and depression started a few years ago, no specific precipitants - does note life stressors that may have contributed (for example, reports that his child was missing for a period of time - ultimately found out that he was hiding in his room) Treatment History for Problem: engaged [facility] providers [facility] [place] [facility] med mgmt and psychotherapy, found it helpful - they recommended that he continue. 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, it ( sx) takes away my compassion a little bit -Relationships/Interpersona l: irritable with others; describes that he was previously outgoing and compassionate - is now more reserved -Leisure/Recreation: still engages - but has a difficult time at [employer], [employer], in crowds -Physical/Medical/Pain: had an endoscopy this morning; LBP -ETOH/Illicit Substance Use/Tobacco/Caffeine: ETOH: denies Tobacco: denies Illicit substances: denies Caffeine: 600 mg/d - energy drinks Symptom Measurements: PHQ9 (Depression): 15 (RANGES: 0-4 Minimal; 5-9 Mild; 10-14 Moderate; 15-19 Moderately severe; 20-27 Severe) GAD7 (Anxiety): 16 (RANGES: 0-4 Minimal; 5-9 Mild; 10-14 Moderate; 15-21 Severe) The Measurement Based Care tools were entered into [facility], scored, and the results were provided to the who indicated: The findings are consistent with their experience The findings suggest: Continue with treatment plan as written. LETHALITY ASSESSMENT -Are you having thoughts of harming yourself or others? No -Any history of suicide attempts: No -Risk Factors: status; Gender; Current mental health symptoms; -Protective Factors: Absence of SI, intent, or plan, no history of SI, suicide attempts, or self-harm behavior; Family support; Childcare responsibilities; Work responsibilities; Willingness to engage in treatment; -Risk level: [X]LOW [ ]MODERATE [ ]HIGH -CLINICAL JUDGMENT AND DISPOSITION: In consideration of relevant risk and protective factors, the did NOT appear to be at imminent risk for suicide or homicide at this time and IS sustainable at the current level of care. -Comments: -Any history of violence: No -Any current HI or aggressive urges: No -Any current concerns related to abuse, neglect, exploitation, and interpersonal violence: No MENTAL STATUS: [X] Within normal limits [ ] Other: ASSIST PHASE: was provided with tools for self-management including: [ ] Handouts on: [ ] Online resources for: [ ] Skills training in: [X] Education regarding: IP services; CoCM services GOALS FOR TX: The following goals were developed using shared decision-making with input by the : --reduce impact of depressive and anxious sx on functioning IMPRESSIONS: Mr. Lafleur (pronounced Rising) is a 33 y/o male Seney seen today for initial assessment reporting a desire to establish MH services - [facility] [place] He is reporting moderately severe depression and severe anxiety. Seney is interested in referral to [facility] for psychotherapy - not interested in psychiatry, prefers if PCP can continue prescribing bupropion and hydroxyzine. He is agreeable to CoCM consult being placed for medication monitoring for recent prescription of bupropion. PLAN OF CARE: The following plan was developed collaboratively with the Seney and he/she provided verbal consent to participate in the treatment plan below. [ ] Continue Care within PC-MHI. [ ] Behavioral Health Lab Monitoring weeks. [ ] RTC in weeks [X] Referral to Mental Health Service Seney is not deemed appropriate for PC[facility] level of care due to the following: [ ] Seney is an established patient in the mental health service having last been seen on . Seney's MHTC is attached to this note to facilitate scheduling. [ ] Veterans presents with trauma-related symptoms and would benefit from a more detailed diagnostic evaluation [X] Veterans psychiatric symptoms are a source of significant distress and impairment [ ] is transferring care from a [place] or community provider and is prescribed controlled substances or is prescribed more than 3 psychotropic medications [ ]Seney had a psychiatric admission or ED visit for mental health the past year [ ]Seney is evidencing signs of psychosis [ ] is an acute or chronic high risk for suicide [ ] Veterans is not interested in Primary Care involvement Seney was notified that a consult was being placed to and was educated on the goal-directed, time-limited nature of treatment. [ ] No follow-up care at this time. Seney aware that requests for PCM[facility] services can be made at any PC visit or by contacting the clinic. RECOMMENDATONS FOR PCP: none at this time Outcome and recommendations will be discussed with the referring provider and other relevant PACT team members as needed. EDUCATION: Seney was provided with opportunity to address any questions or concerns. The was provided with written contact information. The is aware of the Suicide Prevention Hotline number ( ) in case of crisis. If experiencing a mental health emergency, the should present to nearest emergency room or call 911 immediately. /cydney/ CLAIRE PHILIPPE, PHD Staff Psychologist, [facility] Signed: 02/04/2024 16:19 CLAIRE PHILIPPE [facility]
--- OUTSIDE RECORDS SUMMARY | 2025-01-15 07:41 | XMS_ITS ---
Author Name [facility] [place] [facility] Address [address] [place] [address] Care Team Providers Care Policy Checker Name Role Phone BROOKLYN ARAGON Primary Care [...] FOCUS FAMIL Y Oct 08, 2021 132 [id number] [phone] REISING,T YLER PATIENT CAREMARK ([id number])RX PRESCRIPT ION GEHA Oct 04, 2024 [id number] [phone] REISING,T YLER PATIENT CAREMARK FEP [id number] PRESCRIPT ION FEPRX Aug 16, 2019 [id number] [phone] REISING,T YLER PATIENT GEHA PREFERRED PROVIDER ORGANIZAT ION (PPO) GEHA STAND EVELYN Oct 04, 2024 [id number] [phone] REISING,T YLER PATIENT Selected Encounter This section includes the information on record at [place] for the Encounter. Date/Time Encounter Type Encounter Description Reason Pro vider Source Feb 24, 2024 10:11 AM Outpatient Encounter OCCUPATIONAL HEALTH IHE Encounter Template Text not used by [place] Plan of Treatment: Future Appointments (+ 6 months) and Future Tests (+/- 45 days) The Plan of Treatment section includes future care activities for the patient from [facility] [place] [facility] This section includes future appointments and future orders which are active, pending or scheduled. Future Appointments This section includes appointments that were scheduled to occur 6 months from the date of the Encounter, up to a maximum of 20 appointments. The data comes from all [place] treatment facilities. Appointment Date/Time Appointment Type Appointme nt Facility Name Feb 27, 2024 01:00 PM AMBULATORY - MEDICINE [facility] Feb 27, 2024 03:00 PM AMBULATORY - PSYCHIATRY [facility] Feb 28, 2024 07:09 PM AMBULATORY - MEDICINE [facility] Mar 03, 2024 02:00 PM AMBULATORY - PSYCHIATRY [facility] Mar 04, 2024 11:00 AM AMBULATORY - MEDICINE [facility] Mar 13, 2024 11:00 AM AMBULATORY - PSYCHIATRY [facility] Mar 20, 2024 09:00 AM AMBULATORY - PSYCHIATRY [facility] Mar 25, 2024 04:00 PM AMBULATORY - PSYCHIATRY [facility] Mar 25, 2024 06:00 PM AMBULATORY - MEDICINE [facility] Apr 08, 2024 02:00 PM AMBULATORY - PSYCHIATRY [facility] Apr 16, 2024 03:06 AM AMBULATORY - MEDICINE [facility] Apr 16, 2024 08:30 AM AMBULATORY - SURGERY [facility] Apr 22, 2024 02:00 PM AMBULATORY - PSYCHIATRY [facility] Apr 22, 2024 03:30 PM AMBULATORY - MEDICINE [facility] Apr 27, 2024 02:45 PM AMBULATORY - SURGERY [facility] May 01, 2024 11:00 AM AMBULATORY - NONE [facility] May 15, 2024 09:30 AM AMBULATORY - SURGERY [facility] May 20, 2024 03:30 PM AMBULATORY - NONE Urmila Deluca [facility] May 28, 2024 02:00 PM AMBULATORY - PSYCHIATRY [facility] Jun 03, 2024 11:30 AM AMBULATORY - SURGERY Urmila BLACKWELL [facility] Active, Pending, and Scheduled Orders This section includes a listing of several types of active, pending, and scheduled orders, including clinic medications orders, diagnostic test orders, procedure orders and consult orders; where the start date of the order is 45 days before the date of the Encounter or 45 days after the date of theEncounter. The data comes from all [facility] facilities. Test Date/Time Test Type Test Details Facility Name Jan 18, 2024 04:36 AM Laboratory - Chemistry Order CBC BLOOD STAT WC ONCE [facility] January 23, 2024 12:00 AM Laboratory - Chemistry Order HGA1C BLOOD SP [facility] January 23, 2024 12:00 AM Laboratory - Chemistry Order LIPID PANEL (STL) GREEN LI/HEP BLD/PLAS PLASMA [facility] January 23, 2024 12:00 AM Laboratory - Chemistry Order COMPREHENSIVE METABOLIC PANEL GREEN LI/HEP BLD/PLAS PLASMA [facility] January 23, 2024 12:00 AM Laboratory - Chemistry Order VITAMIN D, 25-HYDROXY GOLD/RED SST [facility] January 23, 2024 12:00 AM Laboratory - Chemistry Order B12 GOLD/RED SST [facility] January 23, 2024 12:00 AM Laboratory - Chemistry Order TSH (MA-PB) GOLD/RED SST [facility] Mar 06, 2024 12:00 AM Laboratory - Chemistry Order CBC (DIFF&PLT) BLOOD [facility] Mar 06, 2024 12:00 AM Laboratory - Chemistry Order COMPREHENSIVE METABOLIC PANEL BLOOD PLASMA [facility] Mar 06, 2024 12:00 AM Laboratory - Chemistry Order URINALYSIS URINE [facility] Mar 06, 2024 12:00 AM Laboratory - Chemistry Order LIPID PANEL BLOOD PLASMA [facility] Mar 06, 2024 12:00 AM Laboratory - Chemistry Order TSH-G,LC,J,T BLOOD PLASMA [facility] Mar 06, 2024 12:00 AM Laboratory - Chemistry Order HEMOGLOBIN %A1C PROFILE BLOOD SP [facility] Mar 06, 2024 12:00 AM Laboratory - Chemistry Order MICROALBUMINURIA(IVONNE) URINE SP [facility] Lab Results: +/- 30 days of the encounter This section includes the Chemistry and Hematology Lab Results on record with [place] for the patient. Radiology Reports and Pathology Reports are provided separately, in subsequent sections. Lab Results This section contains the Chemistry/Hematology Results that were resulted 30 days before or 30 daysafter the date of the Encounter. Date/Time Source Result Type Result - Unit Interpretation Reference Range Specimen Type Comment Mar 01, 2024 09:06 PM [facility] HGA1C BLOOD Specimen Type: BLOOD No comment entered. Ordering Provider: ROYA CARTAGENA Report Released Date/Time: Feb 24, 2024 04:42 PM Reporting Lab: [facility] [address] [place] [phone] Performing Lab: [facility] [address] [place] [phone] HGA1C 5.3 4.0-6.0 Mar 01, 2024 09:06 PM [facility] LIPID PANEL (STL) PLASMA Specimen Type: PLASM A Comment: No hemolysis noted. Ordering Provider: ROYA CARTAGENA Report Released Date/Time: Feb 24, 2024 04:42 PM Reporting Lab: [facility] [address] [phone] Performing Lab: [facility] [address] [phone] CHOLESTEROL 174 mg/dL 0-200 TRIGLYCERIDE 220 mg/dL H 0-150 CALCULATED LDL 98 mg/dL HDL(New) 32 mg/dL L >40 Mar 01, 2024 09:06 PM [facility] COMPREHENSIVE METABOLIC PANEL PLASMA Specimen Type: PLASMA Comment: No hemolysis noted. Ordering Provider: ROYA CARTAGENA Report Released Date/Time: Feb 24, 2024 04:42 PM Reporting Lab: [facility] [address] [phone] Performing Lab: [facility] [address] [place] [phone] CREATININE 1.33 mg/dL H 0.7-1.3 UREA NITROGEN [...] >60 Mar 01, 2024 09:06 PM [facility] URINALYSIS (STL-PB) URINE Specimen Type: URIN E No comment entered. Ordering Provider: ROYA CARTAGENA Report Released Date/Time: Feb 24, 2024 04:42 PM Reporting Lab: [address] [address] Performing Lab: [address] [phone] URINE COLOR Light-Yellow Yellow U.BILIRUBIN Negative mg/dL [...] 1.025 1.005-1.029 Mar 01, 2024 09:06 PM [facility] CBC BLOOD Specimen Type: BLOOD No comment entered. Ordering Provider: ROYA CARTAGENA Report Released Date/Time: Feb 24, 2024 04:42 PM Reporting Lab: [facility] [address] [facility] [address] Performing Lab: [facility] [address] [facility] [phone] WBC 7.7 10*3/uL 3.6-11.2 RBC 5.34 10*6/uL [...] and tobacco- related health factors from the [place] facility where the Encounter took place. Current Smoking Status This section includes the most current smoking, or tobacco-related health factor, from the [place] facility where the Encounter took place. Date/Time Current Smoking Status Comment Shameka martínez Jan 08, 2024 04:16 PM VA-TOBACCO FORMER USER [facility] Tobacco Use History This section includes a history of the smoking, or tobacco-related health factors, that were collected on or before the date of the Encounter. The data comes from the [place] facility where the Encounter took place. Date/Time Smoking Status/Tobacco Use Comment F accammy Jan 08, 2024 04:16 PM VA-TOBACCO QUIT 15 YRS OR MORE [facility] Dec 18, 2023 09:41 AM VA-TOBACCO FORMER USER [facility] Dec 18, 2023 09:41 AM [place]-TO[place]AC[place] QUIT 1 TO < 5 YRS [facility] Advance Directives: All historical and current Section Date Range: From patient's date of to the date document was created. This section includes ALL of a patient's completed or amended [place] Advance and Rescinded Directives. The entries below indicate that a directive exists for the patient, but an actual copy is not included with this document. The data comes from all [place] facilities. Date Advance Directives Provider Source Aug 28, 2023 ADVANCE DIRECTIVE NO TIFICATION AND SCREENING SYLWIA SANTIAGO [facility] May 14, 2023 ADVANCE DIRECTIVE NO TIFICATION AND SCREENING SYLWIA SANTIAGO [facility] Radiology Reports: +/- 30 days of [...] the Encounter. The data comes from all [place] treatment facilities. Date/Time Radiology Report Provider Source Mar 25, 2024 07:[address] THORACIC SPINE W/O CONT: MERLE LAFLEUR [id number] -1990 M Exm Date: MAR 25, 2024@19:39 Req Phys: JESSICA PATTEN Pat Loc: [facility] 3RD SHIFT (R Img Loc: [facility]AG[facility] Service: Unknown [facility] [address] [place] [address] (Case [id number] COMPLETE) CT THORACIC SPINE W/O CONT (CT Detailed) CPT:03065 Reason for Study: eval for fx/dislcoation Clinical History: Responsible Attending: dr jessica patten Attending Contact Number: [phone] Resident Contact Number: FELL while roller blading. [...] 25, 2024 Date Verified: MAR 25, 2024 Store Stock Help E-Sig: Report: CT THORACIC SPINE W/O CONT, CT LUMBAR SPINE W/O CONT HISTORY: eval for fx/dislcoation COMPARISON: No priors available. TECHNIQUE: The study was protocoled and supervised at the local [place] facility. 2807 images were subsequently received by the [place] National Teleradiology Program (NTP) for interpretation. Volumetric [...] fracture fragments. READING PHYSICIAN: Caio Rollins MD -[id number] 03/25/2024 18:30 PDT [facility] National Teleradiology Program [phone] (For Medical Practitioner Use Only) Attention Patients / Veterans: If you have questions or concerns about these test results, please contact your ordering provider or primary care team. Primary Interpreting Staff: RADIOLOGY,OUTSIDE SERVICE, Staff Physician / RADIOLOGY,OUTSIDE SERVICE [facility] Mar 25, 2024 07:[address] LUMBAR SPINE W/ O CONT: MERLE LAFLEUR [id number] -1990 M Exm Date: MAR 25, 2024@19:39 Req Phys: JESSICA PATTEN Loc: [facility] 3RD SHIFT (R Img Loc: [facility] Service: Unknown [facility] [address] [place] [address] (Case [id number] COMPLETE) CT LUMBAR SPINE W/O CONT (CT Detailed) CPT:95026 Reason for Study: eval for fx/dislocation Clinical History: Responsible Attending: DR JESSICA PATTEN Attending Contact Number: [phone] Resident Contact Number: FELL while roller blading. [...] 25, 2024 Date Verified: MAR 25, 2024 Store Stock Help E-Sig: Report: CT THORACIC SPINE W/O CONT, CT LUMBAR SPINE W/O CONT HISTORY: eval for fx/dislcoation COMPARISON: No priors available. TECHNIQUE: The study was protocoled and supervised at the local [place] facility. 2807 images were subsequently received by the [place] National Teleradiology Program (NTP) for interpretation. Volumetric [...] fracture fragments. READING PHYSICIAN: Caio Rollins MD -[id number] 03/25/2024 18:30 PDT [facility] National Teleradiology Program [phone] (For Medical Practitioner Use Only) Attention Patients / Veterans: If you have questions or concerns about these test results, please contact your ordering provider or primary care team. Primary Interpreting Staff: RADIOLOGY,OUTSIDE SERVICE, Staff Physician / RADIOLOGY,OUTSIDE SERVICE [facility] Encounter Notes: All associated encounter notes This section contains the clinical notes associated to the Encounter. 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 /cydney/ GIO FUNES [employer]er Signed: 02/24/2024 10:11 Receipt Acknowledged By: 02/24/2024 16:38 /es/ ROYA CARTAGENA RN,ANP NURSE PRACTITIONER GIO FUNES [facility]
--- OUTSIDE RECORDS SUMMARY | 2025-01-15 07:41 | XMS_ITS | Encounter Summary ---
Author Name [facility] [place] Organization [facility] [place] Address [address] [place] [address] Care Team Providers Care Fraud Prevention Analyst Name Role Phone BROOKLYN ARAGON Primary Care [...] FOCUS FAMIL Y Oct 08, 2021 132 [id number] [phone] REISING,T YLER PATIENT CAREMARK ([id number])RX PRESCRIPT ION GEHA Oct 04, 2024 [id number] [phone] REISING,T YLER PATIENT CAREMARK FEP [id number] PRESCRIPT ION FEPRX Aug 16, 2019 [id number] [phone] REISING,T YLER PATIENT GEHA PREFERRED PROVIDER ORGANIZAT ION (PPO) GEHA STAND EVELYN Oct 04, 2024 [id number] [phone] REISING,T YLER PATIENT Selected Encounter This section includes the information on record at [place] for the Encounter. Date/Time Encounter Type Encounter Description Reason Provider Source Feb 27, 2024 01:00 PM OFF/OP CNSLTJ NEW/EST MOD 40 CARDIAC STRESS TEST ICD-10-CM I20.9 Angina pectoris, unspecified LILY WELCH Karen Encounter Template Text not used by [place] Assessments - Encounter Diagnoses This section includes the primary and secondary diagnoses documented for the Encounter. Date/Time Primary/Secondary Diagnosis Diagnosis Name Provider Source Feb 27, 2024 02:26 PM PRIMARY Angina pectoris, unspecified CLINICAL,DEVI E PROXY SERVICE [facility] Plan of Treatment: Future Appointments (+ 6 months) and Future Tests (+/- 45 days) The Plan of Treatment section includes future care activities for the patient from all [place] [facility] This section includes [...] 03, 2024 02:00 PM AMBULATORY - PSYCHIATRY [facility] Mar 04, 2024 11:00 AM AMBULATORY - MEDICINE [facility] Mar 13, 2024 11:00 AM AMBULATORY - PSYCHIATRY [facility] Mar 20, 2024 09:00 AM AMBULATORY - PSYCHIATRY [facility] Mar 25, 2024 04:00 PM AMBULATORY - PSYCHIATRY [facility] Mar 25, 2024 06:00 PM AMBULATORY - MEDICINE [facility] Apr 08, 2024 02:00 PM AMBULATORY - PSYCHIATRY [facility] Apr 16, 2024 03:06 AM AMBULATORY - MEDICINE [facility] Apr 16, 2024 08:30 AM AMBULATORY - SURGERY [facility] Apr 22, 2024 02:00 PM AMBULATORY - PSYCHIATRY [facility] Apr 22, 2024 03:30 PM AMBULATORY - MEDICINE [facility] Apr 27, 2024 02:45 PM AMBULATORY - SURGERY [facility] May 01, 2024 11:00 AM AMBULATORY - NONE [facility] May 15, 2024 09:30 AM AMBULATORY - SURGERY [facility] Doug [facility] May 20, 2024 03:30 PM AMBULATORY - NONE [facility] May 28, 2024 02:00 PM AMBULATORY - PSYCHIATRY [facility] Jun 03, 2024 11:30 AM AMBULATORY - SURGERY [facility] Doug [facility] Jun 11, 2024 01:00 PM AMBULATORY - PSYCHIATRY [facility] Jun 29, 2024 03:00 PM AMBULATORY - NONE [facility] Active, Pending, and Scheduled Orders This section includes a listing of several types of active, pending, and scheduled orders, including clinic medications orders, diagnostic test orders, procedure orders and consult orders; where the start date of the order is 45 days before the date of the Encounter or 45 days after the date of theEncounter. The data comes from all [place] treatment facilities. Test Date/Time Test Type Test Details Facility Name Jan 18, 2024 04:36 AM Laboratory - Chemistry Order CBC BLOOD STAT WC ONCE [facility] January 23, 2024 12:00 AM Laboratory - Chemistry Order HGA1C BLOOD SP [facility] January 23, 2024 12:00 AM Laboratory - Chemistry Order LIPID PANEL (STL) GREEN LI/HEP BLD/PLAS PLASMA SP [facility] January 23, 2024 12:00 AM Laboratory - Chemistry Order COMPREHENSIVE METABOLIC PANEL GREEN LI/HEP BLD/PLAS PLASMA SP [facility] January 23, 2024 12:00 AM Laboratory - Chemistry Order VITAMIN D, 25-HYDROXY GOLD/RED SST SERUM SP [facility] January 23, 2024 12:00 AM Laboratory - Chemistry Order B12 GOLD/RED SST SERUM SP [facility] January 23, 2024 12:00 AM Laboratory - Chemistry Order TSH (MA-PB) GOLD/RED SST SERUM [facility] Mar 06, 2024 12:00 AM Laboratory - Chemistry Order CBC (DIFF&PLT) BLOOD [facility] Mar 06, 2024 12:00 AM Laboratory - Chemistry Order COMPREHENSIVE METABOLIC PANEL BLOOD PLASMA SP [facility] Mar 06, 2024 12:00 AM Laboratory - Chemistry Order URINALYSIS URINE SP [facility] Mar 06, 2024 12:00 AM Laboratory - Chemistry Order LIPID PANEL BLOOD PLASMA [facility] Mar 06, 2024 12:00 AM Laboratory - Chemistry Order TSH-G,LC,J,T BLOOD PLASMA SP [facility] Mar 06, 2024 12:00 AM Laboratory - Chemistry Order HEMOGLOBIN %A1C PROFILE BLOOD SP [facility] Mar 06, 2024 12:00 AM Laboratory - Chemistry Order MICROALBUMINURIA(IVONNE) URINE SP [facility] Lab Results: +/- 30 days [...] Type Comment Mar 01, 2024 09:06 PM [facility] HGA1C BLOOD Specimen Type: BLOOD No comment entered. Ordering Provider: ROYA CARTAGENA Report Released Date/Time: Feb 24, 2024 04:42 PM Reporting Lab: [facility] [address] [facility] [address] Performing Lab: [facility] [address] [facility] [address] HGA1C 5.3 4.0-6.0 Mar 01, 2024 09:06 PM [facility] LIPID PANEL (STL) PLASMA Specimen Type: PLASM A Comment: No hemolysis noted. Ordering Provider: ROYA CARTAGENA Report Released Date/Time: Feb 24, 2024 04:42 PM Reporting Lab: [facility] [address] [facility] [address] Performing Lab: [facility] [address] [facility] [address] CHOLESTEROL 174 mg/dL 0-200 TRIGLYCERIDE 220 mg/dL H 0-150 CALCULATED LDL 98 mg/dL HDL(New) 32 mg/dL L >40 Mar 01, 2024 09:06 PM [facility] COMPREHENSIVE METABOLIC PANEL PLASMA Specimen Type: PLASMA Comment: No hemolysis noted. Ordering Provider: ROYA CARTAGENA Report Released Date/Time: Feb 24, 2024 04:42 PM Reporting Lab: [address] [address] Performing Lab: [address] [address] CREATININE 1.33 mg/dL H 0.7-1.3 UREA NITROGEN [...] 71.9 >60 Mar 01, 2024 09:06 PM [facility] URINALYSIS (STL-PB) URINE Specimen Type: URIN E No comment entered. Ordering Provider: ROYA CARTAGENA Report Released Date/Time: Feb 24, 2024 04:42 PM Reporting Lab: [address] [address] Performing Lab: [address] [address] URINE COLOR Light-Yellow Yellow U.BILIRUBIN Negative mg/dL [...] 1.025 1.005-1.029 Mar 01, 2024 09:06 PM [facility] CBC BLOOD Specimen Type: BLOOD No comment entered. Ordering Provider: ROYA CARTAGENA Report Released Date/Time: Feb 24, 2024 04:42 PM Reporting Lab: [facility] [address] [facility] [address] Performing Lab: [facility] [address] [facility] [address] WBC 7.7 10*3/uL 3.6-11.2 RBC 5.34 10*6/uL [...] 08, 2024 04:16 PM VA-TOBACCO FORMER USER [facility] Tobacco Use History This section includes a history of the smoking, or tobacco-related health factors, that were collected on or before the date of the Encounter. The data comes from the [place] facility where the Encounter took place. Date/Time Smoking Status/Tobacco Use Comment F acility Jan 08, 2024 04:16 PM VA-TOBACCO QUIT 15 YRS OR MORE [facility] Dec 18, 2023 09:41 AM VA-TOBACCO FORMER USER [facility] Dec 18, 2023 09:41 AM VA-TOBACCO QUIT 1 TO < 5 YRS [facility] Advance Directives: All historical and [...] DIRECTIVE NO TIFICATION AND SCREENING SYLWIA SANTIAGO [facility] May 14, 2023 ADVANCE DIRECTIVE NO TIFICATION AND SCREENING SYLWIA SANTIAGO [facility] Radiology Reports: +/- 30 [...] LUMBAR SPINE W/ O CONT: CIARRAMERLE JOLENE [id number] -1990 M Exm Date: MAR 25, 2024@19:39 Req Phys: JESSICA PATTEN Loc: [facility]-EMERGENCY DEPT 3RD SHIFT (R Img Loc: [facility]CT IMAGING [facility] Service: [facility] [address] [place] [address] (Case [id number] COMPLETE) CT LUMBAR SPINE W/O CONT (CT Detailed) CPT:53555 Reason for Study: eval for fx/dislocation Clinical History: Responsible Attending: DR JESSICA PATTEN Attending Contact Number: [phone] Resident Contact Number: FELL while roller blading. [...] 25, 2024 Date Verified: MAR 25, 2024 Handyman E-Sig: Report: CT THORACIC SPINE W/O CONT, [...] fracture fragments. READING PHYSICIAN: Caio Rollins MD -[id number] 03/25/2024 18:30 PDT [facility] National Teleradiology Program [phone] (For Medical Practitioner Use Only) Attention Patients / Veterans: If you have questions or concerns about these test results, please contact your ordering provider or primary care team. Primary Interpreting Staff: RADIOLOGY,OUTSIDE SERVICE, Staff Physician / RADIOLOGY,OUTSIDE SERVICE [facility] Mar 25, 2024 07:[address] THORACIC SPINE W/O CONT: MERLE LAFLEUR [id number] -1990 M Exm Date: MAR 25, 2024@19:39 Req Phys: JESSICA PATTEN Loc: [facility]Y [facility]PT 3RD SHIFT (R Img Loc: [facility]CT IMAGING [facility] Service: Unknown [facility], [address] [place] [address] (Case [id number] COMPLETE) CT THORACIC SPINE W/O CONT (CT Detailed) CPT:28485 Reason for Study: eval for fx/dislcoation Clinical History: Responsible Attending: dr jessica patten Attending Contact Number: [id number] Resident Contact Number: FELL while roller blading. [...] 25, 2024 Date Verified: MAR 25, 2024 Handyman E-Sig: Report: CT THORACIC SPINE W/O CONT, [...] fracture fragments. READING PHYSICIAN: Caio Rollins MD -[id number] 03/25/2024 18:30 PDT [facility] National Teleradiology Program [phone] (For Medical Practitioner Use Only) Attention Patients / Veterans: If you have questions or concerns about these test results, please contact your ordering provider or primary care team. Primary Interpreting Staff: RADIOLOGY,OUTSIDE SERVICE, Staff Physician / RADIOLOGY,OUTSIDE SERVICE [facility] Encounter Notes: All associated encounter notes This section contains the clinical notes associated to the Encounter. Date/Time Encounter Note(s) Provider Source Feb 28, 2024 10:39 AM ADDENDUM: LOCAL TITLE: Addendum STANDARD TITLE: ADDENDUM DATE OF NOTE: FEB 28, 2024@10:39:45 ENTRY DATE: FEB 28, 2024@10:39:47 AUTHOR: LILY WELCH EXP COSIGNER: URGENCY: STATUS: COMPLETED Cardiac Stress Test Lab: Ms. ADAM Thank you for question. As I suggested in my note, please get a Cardiology E-Consult. /cydney/ Lily Welch MD, FACC, FACP STAFF PHYSICIAN - Cardiology Signed: 02/28/2024 10:43 Receipt Acknowledged By: 02/28/2024 10:51 /es/ JUMANA ADAM PAC Physician Supervisor Laboratory Animal Facility, Anesthesiology --- Original Document --- 02/27/24 STRESS TEST PROCEDURE: STRESS TEST PROCEDURE NOTE Reason for consult: Significant family history Referring provider: BRIAN CISSE Patient's chart reviewed. History taken from the patient. HISTORY OF PRESENT ILLNESS This is 33 year old male with a past medical history of GERD and MARY who is here for a treadmill stress test today. Patient has a history of intermittent chest burning which he attributes to GERD. He denies any shortness of breath, dizziness, syncopal episodes or lower extremity edema. He denies chest pain or pressure with exertion. Patient reports he has a strong family history of cardiac disease. His father had an LAD STEMI at age 60. Grandfather had heart attach in his 40s. All of his uncles have had heart attacks in thier 50s. Today he denies any chest pain, dyspnea on exertion, light headedness/dizziness with exertion, orthopnea, PND, or lower extremity edema. Cardiac Hx: None PAST MEDICAL HISTORY 1) Depressive disorder 2) [...] 18) Vitamin D deficiency 19) Anxiety CURRENT MEDICATIONS Active Outpatient Medications (including Supplies): Active [...] TONGUE EVERY EIGHT(8) HOURS NEEDED FOR NAUSEA/VOMITING Allergy: Patient has answered NKA OTHER HISTORY FAMILY HISTORY: No premature coronary disease or sudden SOCIAL HISTORY: TOBACCO USE - No ALCOHOL USE - No COCAINE - No OTHER DRUGS - No REVIEW OF SYSTEMS Review of systems: All 14 systems reviewed are negative except for HPI. OBJECTIVE/DATA PHYSICAL EXAM General: No acute distress Heart: Regular rate and rhythm, normal S1 S2, no murmurs, rubs or gallops Lungs: Clear to auscultation bilaterally, no crackles or wheezing Abdomen: soft Extremities: No edema Skin: No visible rashes Neurological/Psychiatric: Alert and orient to time, place and person. Normal affect and mood. Grossly moving all 4 extremities DIAGNOSTIC DATA CBC WBC: 8.4 10*3/uL (01/18/24 04:22) RBC: 5.61 10*6/uL (01/18/24 04:22) HGB 16.1 g/dL 01/18/2024 04:22 HCT: 47.9 % (01/18/24 04:22) PLT 215 10*3/uL 01/18/2024 04:22 Chem 7 GLUCOSE 106 H mg/dL 01/18/2024 04:22 BUN: 12.9 mg/dL (01/18/24 04:22) CREATININE 1.43 H mg/dL 01/18/2024 04:22 SODIUM 143 mEq/L 01/18/2024 04:22 POTASSIUM 3.9 mEq/L 03/11/2023 18:18 CHLORIDE 104 mEq/L (01/18/24 04:22) CARBON DIOXIDE 30 mEq/L 01/18/2024 04:22 ASSESSMENT AND PLAN Pt with RF and no current angina equivalent. Will proceed with stress test. --------- EXERCISE: Treadmill: (Yoandy Protocol) Rest SAO2: 97 % Peak SAO2: 96 % RESULTS OF EXERCISE TEST SUMMARY ECG ST Segment Changes: No Dysrhythmias: None Complications: None Reason for Stopping: Fatigue, SOB --------- SUMMARY EXERCISE: TREADMILL Yoandy Protocol used 1. Peak Mets: [...] elaborated. - Patient's questions and concerns addressed. ------- Elyssa Naqvi MD Cardiovascular Diseases Fellow PGY-4 /cydney/ ELYSSA NAQVI MD MEDICAL LAB DIRECTOR Signed: 02/27/2024 14:26 /cydney/ Lily Welch MD, FACC, FACP STAFF PHYSICIAN - Cardiology Cosigned: 02/27/2024 14:50 02/27/2024 ADDENDUM STATUS: COMPLETED I saw, interviewed and examined the patient on 02/27/2024, and I have reviewed the patient's pertinent notes, diagnostic studies,and medications in his Electronic Medical Records. I reviewed the stress test data with the Senior Teradata Developer, Dr. NAQVI on that date and I concur with her assessment, as well as interpretation of the stress test that we formulated based on the pertinent available data with the following clarifications, revision. Exercise Stress Test: The patient had a maximal/submaximal treadmill exercise test to the end-point of fatigue/dyspnea as well as transient lower SSCP (burning) lasting ~45s His aerobic capacity was GOOD, 16% HIGHER than the age-adjusted VO2 max of sedentary healthy men. There was NO ECG evidence of exercise-induced myocardial ischemia. The results of the stress test were discussed with the patient. The patient was informed that a NON-ischemic ECG or other imaging stress tests do not exclude presence of coronary atherosclerosis, particularly non-obstructive CAD (in layman's terms). The patient was also advised that occasionally these mild stenoses may develop erosion/crack/rupture resulting in coronary thrombosis and heart attack (ALL in layman's terms). The veterans's questions and concerns were addressed. In addition, the significance and impact of aerobic capacity on long-term outcome and and quality of life were discussed He acknowledged understanding of the concerns discussed. The Dixon left the Stress Test Lab in stable condition with NO symptoms. Thank you for your referral and allowing us to participate in care of your patient. 58 minutes were spent interviewing the patient, reviewing the stress test data, discussing the results and implications of findings as well as exercise and physical activity counseling. In view of strong family H/O CAD, exercise-induced CP, and elevated LDL-C(130 mg/dl), coronary caclium score was ordered to be followed by cardiac CATH if appropriate; Further more this patient benefit from statin if tolerted because of its pleotropic properties (coronary plaque-stabilising effects of statin of statins). You may consider a cardiology consult. /cydney/ Lily Welch MD, FACC, FACP STAFF PHYSICIAN - Cardiology Signed: 02/27/2024 15:20 Receipt Acknowledged By: * AWAITING SIGNATURE * BRIAN CISSE * AWAITING SIGNATURE * SHEELA CAMARILLO 02/28/2024 ADDENDUM STATUS: COMPLETED Dr WELCH Does this pt need to have the calcium scoring test +/- cardiac CATH done prior to having lap ying which is scheduled for 19 March? /cydney/ JUMANA TRIPP Physician Supervisor Laboratory Animal Facility, Anesthesiology Signed: 02/28/2024 09:18 Receipt Acknowledged By: 02/28/2024 10:39 /cydney/ Lily Welch MD, FACC, FACP STAFF PHYSICIAN - Cardiology * AWAITING SIGNATURE * WILLARD COSTA * AWAITING SIGNATURE * EFREN ALMEIDA R * AWAITING SIGNATURE * MARCELLE FRYE ALI A [facility] Feb 28, 2024 09:15 AM ADDENDUM: LOCAL TITLE: Addendum STANDARD TITLE: ADDENDUM DATE OF NOTE: FEB 28, 2024@09:15:46 ENTRY DATE: FEB 28, 2024@09:15:47 AUTHOR: JUMANA ADAM EXP COSIGNER: URGENCY: STATUS: COMPLETED Dr WELCH Does this pt need to have the calcium scoring test +/- cardiac CATH done prior to having lap ying which is scheduled for 19 March? /es/ JUMANA ADAM PAC Physician Supervisor Laboratory Animal Facility, Anesthesiology Signed: 02/28/2024 09:18 Receipt Acknowledged By: 02/28/2024 10:39 /es/ Lily Welch MD, FACC, FACP STAFF PHYSICIAN - Cardiology 02/28/2024 12:01 /es/ WILLARD COSTA RN, BSN REGISTERED NURSE --- Original Document --- 02/27/24 STRESS TEST PROCEDURE: STRESS TEST PROCEDURE NOTE Reason for consult: Significant family history Referring provider: BRIAN CISSE Patient's chart reviewed. History taken from the patient. HISTORY OF PRESENT ILLNESS This is 33 year old male with a past medical history of GERD and MARY who is here for a treadmill stress test today. Patient has a history of intermittent chest burning which he attributes to GERD. He denies any shortness of breath, dizziness, syncopal episodes or lower extremity edema. He denies chest pain or pressure with exertion. Patient reports he has a strong family history of cardiac disease. His father had an LAD STEMI at age 60. Grandfather had heart attach in his 40s. All of his uncles have had heart attacks in thier 50s. Today he denies any chest pain, dyspnea on exertion, light headedness/dizziness with exertion, orthopnea, PND, or lower extremity edema. Cardiac Hx: None PAST MEDICAL HISTORY 1) Depressive disorder 2) [...] 18) Vitamin D deficiency 19) Anxiety CURRENT MEDICATIONS Active Outpatient Medications (including Supplies): Active [...] TONGUE EVERY EIGHT(8) HOURS NEEDED FOR NAUSEA/VOMITING Allergy: Patient has answered NKA OTHER HISTORY FAMILY HISTORY: No premature coronary disease or sudden SOCIAL HISTORY: TOBACCO USE - No ALCOHOL USE - No COCAINE - No OTHER DRUGS - No REVIEW OF SYSTEMS Review of systems: All 14 systems reviewed are negative except for HPI. OBJECTIVE/DATA PHYSICAL EXAM General: No acute distress Heart: Regular rate and rhythm, normal S1 S2, no murmurs, rubs or gallops Lungs: Clear to auscultation bilaterally, no crackles or wheezing Abdomen: soft Extremities: No edema Skin: No visible rashes Neurological/Psychiatric: Alert and orient to time, place and person. Normal affect and mood. Grossly moving all 4 extremities DIAGNOSTIC DATA CBC WBC: 8.4 10*3/uL (01/18/24 04:22) RBC: 5.61 10*6/uL (01/18/24 04:22) HGB 16.1 g/dL 01/18/2024 04:22 HCT: 47.9 % (01/18/24 04:22) PLT 215 10*3/uL 01/18/2024 04:22 Chem 7 GLUCOSE 106 H mg/dL 01/18/2024 04:22 BUN: 12.9 mg/dL (01/18/24 04:22) CREATININE 1.43 H mg/dL 01/18/2024 04:22 SODIUM 143 mEq/L 01/18/2024 04:22 POTASSIUM 3.9 mEq/L 03/11/2023 18:18 CHLORIDE 104 mEq/L (01/18/24 04:22) CARBON DIOXIDE 30 mEq/L 01/18/2024 04:22 ASSESSMENT AND PLAN Pt with RF and no current angina equivalent. Will proceed with stress test. --------- EXERCISE: Treadmill: (Yoandy Protocol) Rest SAO2: 97 % Peak SAO2: 96 % RESULTS OF EXERCISE TEST SUMMARY ECG ST Segment Changes: No Dysrhythmias: None Complications: None Reason for Stopping: Fatigue, SOB --------- SUMMARY EXERCISE: TREADMILL Yoandy Protocol used 1. Peak Mets: [...] elaborated. - Patient's questions and concerns addressed. ------- Elyssa Naqvi MD Cardiovascular Diseases Fellow PGY-4 /es/ ELYSSA NAQVI MD MEDICAL LAB DIRECTOR Signed: 02/27/2024 14:26 /es/ Lily Welch MD, FACC, FACP STAFF PHYSICIAN - Cardiology Cosigned: 02/27/2024 14:50 02/27/2024 ADDENDUM STATUS: COMPLETED I saw, interviewed and examined the patient on 02/27/2024, and I have reviewed the patient's pertinent notes, diagnostic studies,and medications in his Electronic Medical Records. I reviewed the stress test data with the Senior Teradata Developer, Dr. NAQVI on that date and I concur with her assessment, as well as interpretation of the stress test that we formulated based on the pertinent available data with the following clarifications, revision. Exercise Stress Test: The patient had a maximal/submaximal treadmill exercise test to the end-point of fatigue/dyspnea as well as transient lower SSCP (burning) lasting ~45s His aerobic capacity was GOOD, 16% HIGHER than the age-adjusted VO2 max of sedentary healthy men. There was NO ECG evidence of exercise-induced myocardial ischemia. The results of the stress test were discussed with the patient. The patient was informed that a NON-ischemic ECG or other imaging stress tests do not exclude presence of coronary atherosclerosis, particularly non-obstructive CAD (in layman's terms). The patient was also advised that occasionally these mild stenoses may develop erosion/crack/rupture resulting in coronary thrombosis and heart attack (ALL in layman's terms). The veterans's questions and concerns were addressed. In addition, the significance and impact of aerobic capacity on long-term outcome and and quality of life were discussed He acknowledged understanding of the concerns discussed. The Dixon left the Stress Test Lab in stable condition with NO symptoms. Thank you for your referral and allowing us to participate in care of your patient. 58 minutes were spent interviewing the patient, reviewing the stress test data, discussing the results and implications of findings as well as exercise and physical activity counseling. In view of strong family H/O CAD, exercise-induced CP, and elevated LDL-C(130 mg/dl), coronary caclium score was ordered to be followed by cardiac CATH if appropriate; Further more this patient benefit from statin if tolerted because of its pleotropic properties (coronary plaque-stabilising effects of statin of statins). You may consider a cardiology consult. /cydney/ Lily Welch MD, FACC, FACP STAFF PHYSICIAN - Cardiology Signed: 02/27/2024 15:20 Receipt Acknowledged By: * AWAITING SIGNATURE * MENG CISSEDelbert Rangel * AWAITING SIGNATURE * SHEELA CAMARILLO 02/28/2024 ADDENDUM STATUS: COMPLETED Cardiac Stress Test Lab: Urmila [facility] Thank you for question. As I suggested in my note, please get a Cardiology E-Consult. /da Welch MD, FACC, FACP STAFF PHYSICIAN - Cardiology Signed: 02/28/2024 10:43 Receipt Acknowledged By: 02/28/2024 10:51 /cydney/ JUMANA ADAM PAC Physician Supervisor Laboratory Animal Facility, Anesthesiology JUMANA ADAM [facility] Feb 27, 2024 02:50 PM ADDENDUM: LOCAL TITLE: Addendum STANDARD TITLE: ADDENDUM DATE OF NOTE: FEB 27, 2024@14:50:28 ENTRY DATE: FEB 27, 2024@14:50:29 AUTHOR: LILY WELCH EXP COSIGNER: URGENCY: STATUS: COMPLETED I saw, interviewed and examined the patient on 02/27/2024, and I have reviewed the patient's pertinent notes, diagnostic studies,and medications in his Electronic Medical Records. I reviewed the stress test data with the Senior Teradata Developer, Dr. NAQVI on that date and I concur with her assessment, as well as interpretation of the stress test that we formulated based on the pertinent available data with the following clarifications, revision. Exercise Stress Test: The patient had a maximal/submaximal treadmill exercise test to the end-point of fatigue/dyspnea as well as transient lower SSCP (burning) lasting ~45s His aerobic capacity was GOOD, 16% HIGHER than the age-adjusted VO2 max of sedentary healthy men. There was NO ECG evidence of exercise-induced myocardial ischemia. The results of the stress test were discussed with the patient. The patient was informed that a NON-ischemic ECG or other imaging stress tests do not exclude presence of coronary atherosclerosis, particularly non-obstructive CAD (in layman's terms). The patient was also advised that occasionally these mild stenoses may develop erosion/crack/rupture resulting in coronary thrombosis and heart attack (ALL in layman's terms). The veterans's questions and concerns were addressed. In addition, the significance and impact of aerobic capacity on long-term outcome and and quality of life were discussed He acknowledged understanding of the concerns discussed. The Dixon left the Stress Test Lab in stable condition with NO symptoms. Thank you for your referral and allowing us to participate in care of your patient. 58 minutes were spent interviewing the patient, reviewing the stress test data, discussing the results and implications of findings as well as exercise and physical activity counseling. In view of strong family H/O CAD, exercise-induced CP, and elevated LDL-C(130 mg/dl), coronary caclium score was ordered to be followed by cardiac CATH if appropriate; Further more this patient benefit from statin if tolerted because of its pleotropic properties (coronary plaque-stabilising effects of statin of statins). You may consider a cardiology consult. /es/ Lily Welch MD, FACC, FACP STAFF PHYSICIAN - Cardiology Signed: 02/27/2024 15:20 Receipt Acknowledged By: 02/28/2024 14:14 /cydney/ BRIAN CISSE NP MSN, MOLDING SUPERVISOR, TOOTH CUTTER-BC --- Original Document --- 02/27/24 STRESS TEST PROCEDURE: STRESS TEST PROCEDURE NOTE Reason for consult: Significant family history Referring provider: BRIAN CISSE Patient's chart reviewed. History taken from the patient. HISTORY OF PRESENT ILLNESS This is 33 year old male with a past medical history of GERD and MARY who is here for a treadmill stress test today. Patient has a history of intermittent chest burning which he attributes to GERD. He denies any shortness of breath, dizziness, syncopal episodes or lower extremity edema. He denies chest pain or pressure with exertion. Patient reports he has a strong family history of cardiac disease. His father had an LAD STEMI at age 60. Grandfather had heart attach in his 40s. All of his uncles have had heart attacks in thier 50s. Today he denies any chest pain, dyspnea on exertion, light headedness/dizziness with exertion, orthopnea, PND, or lower extremity edema. Cardiac Hx: None PAST MEDICAL HISTORY 1) Depressive disorder 2) [...] 18) Vitamin D deficiency 19) Anxiety CURRENT MEDICATIONS Active Outpatient Medications (including Supplies): Active [...] TONGUE EVERY EIGHT(8) HOURS NEEDED FOR NAUSEA/VOMITING Allergy: Patient has answered NKA OTHER HISTORY FAMILY HISTORY: No premature coronary disease or sudden SOCIAL HISTORY: TOBACCO USE - No ALCOHOL USE - No COCAINE - No OTHER DRUGS - No REVIEW OF SYSTEMS Review of systems: All 14 systems reviewed are negative except for HPI. OBJECTIVE/DATA PHYSICAL EXAM General: No acute distress Heart: Regular rate and rhythm, normal S1 S2, no murmurs, rubs or gallops Lungs: Clear to auscultation bilaterally, no crackles or wheezing Abdomen: soft Extremities: No edema Skin: No visible rashes Neurological/Psychiatric: Alert and orient to time, place and person. Normal affect and mood. Grossly moving all 4 extremities DIAGNOSTIC DATA CBC WBC: 8.4 10*3/uL (01/18/24 04:22) RBC: 5.61 10*6/uL (01/18/24 04:22) HGB 16.1 g/dL 01/18/2024 04:22 HCT: 47.9 % (01/18/24 04:22) PLT 215 10*3/uL 01/18/2024 04:22 Chem 7 GLUCOSE 106 H mg/dL 01/18/2024 04:22 BUN: 12.9 mg/dL (01/18/24 04:22) CREATININE 1.43 H mg/dL 01/18/2024 04:22 SODIUM 143 mEq/L 01/18/2024 04:22 POTASSIUM 3.9 mEq/L 03/11/2023 18:18 CHLORIDE 104 mEq/L (01/18/24 04:22) CARBON DIOXIDE 30 mEq/L 01/18/2024 04:22 ASSESSMENT AND PLAN Pt with RF and no current angina equivalent. Will proceed with stress test. --------- EXERCISE: Treadmill: (Yoandy Protocol) Rest SAO2: 97 % Peak SAO2: 96 % RESULTS OF EXERCISE TEST SUMMARY ECG ST Segment Changes: No Dysrhythmias: None Complications: None Reason for Stopping: Fatigue, SOB --------- SUMMARY EXERCISE: TREADMILL Yoandy Protocol used 1. Peak Mets: [...] elaborated. - Patient's questions and concerns addressed. ------- Elyssa Naqvi MD Cardiovascular Diseases Fellow PGY-4 /cydney/ ELYSSA NAQVI MD MEDICAL LAB DIRECTOR Signed: 02/27/2024 14:26 /cydney/ Lily Welch MD, FACC, FACP STAFF PHYSICIAN - Cardiology Cosigned: 02/27/2024 14:50 02/28/2024 ADDENDUM STATUS: COMPLETED Dr WELCH Does this pt need to have the calcium scoring test +/- cardiac CATH done prior to having lap ying which is scheduled for 19 March? /da ADAM PAC Physician Supervisor Laboratory Animal Facility, Anesthesiology Signed: 02/28/2024 09:18 Receipt Acknowledged By: 02/28/2024 10:39 /da Welch MD, FACC, FACP STAFF PHYSICIAN - Cardiology 02/28/2024 12:01 /cydney/ WILLARD COSTA RN, BSN REGISTERED NURSE 02/28/2024 ADDENDUM STATUS: COMPLETED Cardiac Stress Test Lab: Ms. ADAM Thank you for question. As I suggested in my note, please get a Cardiology E-Consult. /da Welch MD, FACC, FACP STAFF PHYSICIAN - Cardiology Signed: 02/28/2024 10:43 Receipt Acknowledged By: 02/28/2024 10:51 /cydney/ JUMANA ADAM PAC Physician Supervisor Laboratory Animal Facility, Anesthesiology LILY WELCH [facility] Feb 27, 2024 02:29 PM CARDIOLOGY DIAGNOSTIC STUDY REPORT: LOCAL TITLE: CP EXERCISE STRESS TEST STL STANDARD TITLE: CARDIOLOGY DIAGNOSTIC STUDY REPORT DATE OF NOTE: FEB 27, 2024@14:29:43 ENTRY DATE: FEB 27, 2024@14:29:43 AUTHOR: CLINICAL,DEVICE PRO EXP COSIGNER: URGENCY: STATUS: COMPLETED DOCUMENT IN VISTA IMAGING SEE FULL REPORT IN VISTA IMAGING SIGNATURE NOT REQUIRED SEE SIGNATURE IN VISTA IMAGING ([place] Exercise) AUTO-INSTRUMENT DIAGNOSIS Procedure: 75552 Stress Test Release Status: Released Off-Line Verified Date Verified: Feb 27, 2024@14:29:39 81983 Protocol Name: YOANDY 44134 Time In Exercise Phase:00:10:05 55934 Max. Systolic BP: 174 mmHg 93256 Max Diastolic BP: 73 mmHg 97108 Max Heart Rate: 184 BPM 12840 Max Predicted Heart [id number] BPM 33087 Reason For Termination:Fatigue~Dyspnea 52281 Reason for Test: Pre-Op Evaluation 84489 Target HR Formula: (220 - Age)*100% 40587 Overall Impression: SEE STRESS TEST PROCEDURE NOTE for DETAILS Administrative Closure: 02/27/2024 by: CLINICAL,DEVICE PROXY SERVICE CLINICAL,DEVICE PROXY SERVICE [facility] Feb 27, 2024 01:27 PM CARDIOLOGY PROCEDURE NOTE: LOCAL TITLE: CARDIOLOGY PROCEDURE REPORT STL STANDARD TITLE: CARDIOLOGY PROCEDURE NOTE DATE OF NOTE: FEB 27, 2024@13:27 ENTRY DATE: FEB 27, 2024@13:27:47 AUTHOR: CATRACHO HARTMANN EXP COSIGNER: URGENCY: STATUS: COMPLETED STRESS TEST PROCEDURE NOTE Patient brought into the stress lab and prepped for the stress test at 1300 Baseline ECG obtained and given to Dr Naqvi for review Pt underwent treadmill exercise per yoandy protocol Complications: NONE Stress ECG transferred to MUSE system: Y Stress ECG given to Dr. Naqvi for review at the end of the test Patient discharged from stress lab in stable condition See note for further details. /cydney/ CATRACHO HARTMANN [facility] Stress Batch Freezer Operator Signed: 02/27/2024 13:28 CATRACHO HARTMANN [facility] Feb 27, 2024 01:07 PM CARDIOLOGY DIAGNOSTIC STUDY NOTE: LOCAL TITLE: STRESS TEST PROCEDURE STANDARD TITLE: CARDIOLOGY DIAGNOSTIC STUDY NOTE DATE OF NOTE: FEB 27, 2024@13:07 ENTRY DATE: FEB 27, 2024@13:07:51 AUTHOR: ELYSSA NAQVI COSIGNER: LILY WELCH URGENCY: STATUS: COMPLETED STRESS TEST PROCEDURE Has ADDENDA STRESS TEST PROCEDURE NOTE Reason for consult: Significant family history Referring provider: BRIAN CISSE Patient's chart reviewed. History taken from the patient. HISTORY OF PRESENT ILLNESS This is 33 year old male with a past medical history of GERD and MARY who is here for a treadmill stress test today. Patient has a history of intermittent chest burning which he attributes to GERD. He denies any shortness of breath, dizziness, syncopal episodes or lower extremity edema. He denies chest pain or pressure with exertion. Patient reports he has a strong family history of cardiac disease. His father had an LAD STEMI at age 60. Grandfather had heart attach in his 40s. All of his uncles have had heart attacks in thier 50s. Today he denies any chest pain, dyspnea on exertion, light headedness/dizziness with exertion, orthopnea, PND, or lower extremity edema. Cardiac Hx: None PAST MEDICAL HISTORY 1) Depressive disorder 2) [...] 18) Vitamin D deficiency 19) Anxiety CURRENT MEDICATIONS Active Outpatient Medications (including Supplies): Active [...] TONGUE EVERY EIGHT(8) HOURS NEEDED FOR NAUSEA/VOMITING Allergy: Patient has answered NKA OTHER HISTORY FAMILY HISTORY: No premature coronary disease or sudden SOCIAL HISTORY: TOBACCO USE - No ALCOHOL USE - No COCAINE - No OTHER DRUGS - No REVIEW OF SYSTEMS Review of systems: All 14 systems reviewed are negative except for HPI. OBJECTIVE/DATA PHYSICAL EXAM General: No acute distress Heart: Regular rate and rhythm, normal S1 S2, no murmurs, rubs or gallops Lungs: Clear to auscultation bilaterally, no crackles or wheezing Abdomen: soft Extremities: No edema Skin: No visible rashes Neurological/Psychiatric: Alert and orient to time, place and person. Normal affect and mood. Grossly moving all 4 extremities DIAGNOSTIC DATA CBC WBC: 8.4 10*3/uL (01/18/24 04:22) RBC: 5.61 10*6/uL (01/18/24 04:22) HGB 16.1 g/dL 01/18/2024 04:22 HCT: 47.9 % (01/18/24 04:22) PLT 215 10*3/uL 01/18/2024 04:22 Chem 7 GLUCOSE 106 H mg/dL 01/18/2024 04:22 BUN: 12.9 mg/dL (01/18/24 04:22) CREATININE 1.43 H mg/dL 01/18/2024 04:22 SODIUM 143 mEq/L 01/18/2024 04:22 POTASSIUM 3.9 mEq/L 03/11/2023 18:18 CHLORIDE 104 mEq/L (01/18/24 04:22) CARBON DIOXIDE 30 mEq/L 01/18/2024 04:22 ASSESSMENT AND PLAN Pt with RF and no current angina equivalent. Will proceed with stress test. --------- EXERCISE: Treadmill: (Yoandy Protocol) Rest SAO2: 97 % Peak SAO2: 96 % RESULTS OF EXERCISE TEST SUMMARY ECG ST Segment Changes: No Dysrhythmias: None Complications: None Reason for Stopping: Fatigue, SOB --------- SUMMARY EXERCISE: TREADMILL Yoandy Protocol used 1. Peak Mets: [...] elaborated. - Patient's questions and concerns addressed. ------- Elyssa Naqvi MD Cardiovascular Diseases Fellow PGY-4 /cydney/ ELYSSA NAQVI MD MEDICAL LAB DIRECTOR Signed: 02/27/2024 14:26 /cydney/ Lily Welch MD, FAC, FACP STAFF PHYSICIAN - Cardiology Cosigned: 02/27/2024 14:50 02/27/2024 ADDENDUM STATUS: COMPLETED I saw, interviewed and examined the patient on 02/27/2024, and I have reviewed the patient's pertinent notes, diagnostic studies,and medications in his Electronic Medical Records. I reviewed the stress test data with the Senior Teradata Developer, Dr. NAQVI on that date and I concur with her assessment, as well as interpretation of the stress test that we formulated based on the pertinent available data with the following clarifications, revision. Exercise Stress Test: The patient had a maximal/submaximal treadmill exercise test to the end-point of fatigue/dyspnea as well as transient lower SSCP (burning) lasting ~45s His aerobic capacity was GOOD, 16% HIGHER than the age-adjusted VO2 max of sedentary healthy men. There was NO ECG evidence of exercise-induced myocardial ischemia. The results of the stress test were discussed with the patient. The patient was informed that a NON-ischemic ECG or other imaging stress tests do not exclude presence of coronary atherosclerosis, particularly non-obstructive CAD (in layman's terms). The patient was also advised that occasionally these mild stenoses may develop erosion/crack/rupture resulting in coronary thrombosis and heart attack (ALL in layman's terms). The veterans's questions and concerns were addressed. In addition, the significance and impact of aerobic capacity on long-term outcome and and quality of life were discussed He acknowledged understanding of the concerns discussed. The left the Stress Test Lab in stable condition with NO symptoms. Thank you for your referral and allowing us to participate in care of your patient. 58 minutes were spent interviewing the patient, reviewing the stress test data, discussing the results and implications of findings as well as exercise and physical activity counseling. In view of strong family H/O CAD, exercise-induced CP, and elevated LDL-C(130 mg/dl), coronary caclium score was ordered to be followed by cardiac CATH if appropriate; Further more this patient benefit from statin if tolerted because of its pleotropic properties (coronary plaque-stabilising effects of statin of statins). You may consider a cardiology consult. /cydney/ Lily Welch MD, FACC, FACP STAFF PHYSICIAN - Cardiology Signed: 02/27/2024 15:20 Receipt Acknowledged By: * AWAITING SIGNATURE * BRIAN CISSE * AWAITING SIGNATURE * SHEELA CAMARILLO 02/28/2024 ADDENDUM STATUS: COMPLETED Dr WELCH Does this pt need to have the calcium scoring test +/- cardiac CATH done prior to having lap ying which is scheduled for 19 March? /cydney/ JUMANA TRIPP Physician Supervisor Laboratory Animal Facility, Anesthesiology Signed: 02/28/2024 09:18 Receipt Acknowledged By: 02/28/2024 10:39 /da Welch MD, FACC, FACP STAFF PHYSICIAN - Cardiology * AWAITING SIGNATURE * WILLARD COSTA * AWAITING SIGNATURE * EFREN ALMEIDA * AWAITING SIGNATURE * MARCELLE FRYE 02/28/2024 ADDENDUM STATUS: COMPLETED Cardiac Stress Test Lab: Ms. ADAM Thank you for question. As I suggested in my note, please get a Cardiology E-Consult. /cydney/ Lily Welch MD, FACC, FACP STAFF PHYSICIAN - Cardiology Signed: 02/28/2024 10:43 Receipt Acknowledged By: * AWAITING SIGNATURE * JUMANA ADAM [facility]
--- OUTSIDE RECORDS SUMMARY | 2025-01-15 07:41 | XMS_ITS | Encounter Summary ---
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 Date/Time Encounter Type Encounter Description Reason Provider Source February 04, 2024 09:15 AM OFFICE O/P EST SF 10 MIN NON-OR ANESTHESIA PROCEDURES ICD-10-CM Z01.818 Encounter for other preprocedural examination GABRIELA SPARROW Encounter Template Text not used by [place] Assessments - Encounter Diagnoses This section includes the primary and secondary diagnoses documented for the Encounter. Date/Time Primary/Secondary Diagnosis Diagnosis Name Provider Source February 11, 2024 01:45 PM PRIMARY Encounter for other preprocedural examination JEOVANY MOSLEY [facility] Plan of Treatment: Future Appointments (+ 6 months) and Future Tests (+/- 45 days) The Plan of Treatment section includes future care activities for the [facility] [place] [facility]. This section includes future appointments [...] 05, 2024 09:00 AM AMBULATORY - PSYCHIATRY [facility] February 07, 2024 08:00 AM AMBULATORY - SURGERY [facility] Feb 27, 2024 01:00 PM AMBULATORY - MEDICINE [facility] Feb 27, 2024 03:00 PM AMBULATORY - PSYCHIATRY [facility] Feb 28, 2024 07:09 PM AMBULATORY - MEDICINE [facility] Mar 03, 2024 02:00 PM AMBULATORY - PSYCHIATRY [facility] Mar 04, 2024 11:00 AM AMBULATORY - MEDICINE [facility] Mar 13, 2024 11:00 AM AMBULATORY - PSYCHIATRY [facility] Mar 20, 2024 09:00 AM AMBULATORY - PSYCHIATRY [facility] Mar 25, 2024 04:00 PM AMBULATORY - PSYCHIATRY [facility] Mar 25, 2024 06:00 PM AMBULATORY - MEDICINE [facility] Apr 08, 2024 02:00 PM AMBULATORY - PSYCHIATRY [facility] Apr 16, 2024 03:06 AM AMBULATORY - MEDICINE [facility] Apr 16, 2024 08:30 AM AMBULATORY - SURGERY . [facility] Apr 22, 2024 02:00 PM AMBULATORY - PSYCHIATRY [facility] Apr 22, 2024 03:30 PM AMBULATORY - MEDICINE [facility] Apr 27, 2024 02:45 PM AMBULATORY - SURGERY . [facility] May 01, 2024 11:00 AM AMBULATORY - NONE [facility] May 15, 2024 09:30 AM AMBULATORY - SURGERY [facility] May 20, 2024 03:30 PM AMBULATORY - NONE [facility] Active, Pending, and Scheduled Orders This section includes a listing of several types of active, pending, and scheduled orders, including clinic medications orders, diagnostic test orders, procedure orders and consult orders; where the start date of the order is 45 days before the date of the Encounter or 45 days after the date of theEncounter. The data comes from all [facility] facilities. Test Date/Time Test Type Test Details Facility Name Jan 18, 2024 04:36 AM Laboratory - Chemistry Order CBC BLOOD STAT WC ONCE [facility] January 23, 2024 12:00 AM Laboratory - Chemistry Order HGA1C BLOOD [facility] January 23, 2024 12:00 AM Laboratory - Chemistry Order COMPREHENSIVE METABOLIC PANEL GREEN LI/HEP BLD/PLAS PLASMA [facility] January 23, 2024 12:00 AM Laboratory - Chemistry Order LIPID PANEL (STL) GREEN LI/HEP BLD/PLAS PLASMA [facility] January 23, 2024 12:00 AM Laboratory - Chemistry Order VITAMIN D, 25-HYDROXY GOLD/RED SST SERUM [facility] January 23, 2024 12:00 AM Laboratory - Chemistry Order B12 GOLD/RED SST SERUM [facility] January 23, 2024 12:00 AM Laboratory - Chemistry Order TSH (MA-PB) GOLD/RED SST SERUM [facility] Mar 06, 2024 12:00 AM Laboratory - Chemistry Order CBC (DIFF&PLT) BLOOD [facility] Mar 06, 2024 12:00 AM Laboratory - Chemistry Order COMPREHENSIVE METABOLIC PANEL BLOOD PLASMA [facility] Mar 06, 2024 12:00 AM Laboratory - Chemistry Order URINALYSIS URINE SP [facility] Mar 06, 2024 12:00 AM Laboratory - Chemistry Order LIPID PANEL BLOOD PLASMA [facility] Mar 06, 2024 12:00 AM Laboratory - Chemistry Order TSH-G,LC,J,T BLOOD PLASMA [facility] Mar 06, 2024 12:00 AM Laboratory - Chemistry Order HEMOGLOBIN %A1C PROFILE BLOOD [facility] Mar 06, 2024 12:00 AM Laboratory - Chemistry Order MICROALBUMINURIA(IVONNE) URINE SP [facility] Lab Results: +/- 30 days of [...] Mar 01, 2024 09:06 PM [facility] HGA1C BLOOD Specimen Type: BLOOD No comment entered. Ordering Provider: ROYA CARTAGENA Report Released Date/Time: Feb 24, 2024 04:42 PM Reporting Lab: [facility] [address] [address] Performing Lab: [facility] [address] [address] HGA1C 5.3 4.0-6.0 Mar 01, 2024 09:06 PM [facility] LIPID PANEL (STL) PLASMA Specimen Type: PLASM A Comment: No hemolysis noted. Ordering Provider: ROYA CARTAGENA Report Released Date/Time: Feb 24, 2024 04:42 PM Reporting Lab: [facility] [address] [address] Performing Lab: [facility] [address] [address] CHOLESTEROL 174 mg/dL 0-200 TRIGLYCERIDE 220 mg/dL H 0-150 CALCULATED LDL 98 mg/dL HDL(New) 32 mg/dL L >40 Mar 01, 2024 09:06 PM [facility] COMPREHENSIVE METABOLIC PANEL PLASMA Specimen Type: PLASMA Comment: No hemolysis noted. Ordering Provider: ROYA CARTAGENA Report Released Date/Time: Feb 24, 2024 04:42 PM Reporting Lab: [address] [address] Performing Lab: [address] [address] CREATININE 1.33 mg/dL H 0.7-1.3 UREA NITROGEN [...] 71.9 >60 Mar 01, 2024 09:06 PM [facility] CBC BLOOD Specimen Type: BLOOD No comment entered. Ordering Provider: ROYA CARTAGENA Report Released Date/Time: Feb 24, 2024 04:42 PM Reporting Lab: [address] [address] Performing Lab: [address] [address] WBC 7.7 10*3/uL 3.6-11.2 RBC 5.34 10*6/uL [...] 0.00-0. 20 Mar 01, 2024 09:06 PM [facility] URINALYSIS (STL-PB) URINE Specimen Type: URIN E No comment entered. Ordering Provider: ROYA CARTAGENA Report Released Date/Time: Feb 24, 2024 04:42 PM Reporting Lab: [address] [address] Performing Lab: [address] [address] URINE COLOR Light-Yellow Yellow U.BILIRUBIN Negative mg/dL [...] 1.025 1.005-1.029 Jan 18, 2024 04:22 AM [facility] COVID-19 DIAGNOSTIC (FLU/RSV)(STL) NASOPHARYNX Spec imen Type: [...] 18, 2024 04:23 AM Reporting Lab: [facility] [address] [place] [phone] Performing Lab: [address] [address] INFLUENZA A Negative Negative INFLUENZA B Negative Negative COVID-19 (STL-PB) Not Detected Not Detec braden RSV (Cepheid) NEGATIVE Negative Jan 18, 2024 04:22 AM [facility] COMPREHENSIVE METABOLIC PANEL PLASMA Specimen Type: PLASMA Comment: Aspartate Transaminase result may show positive bias due to hemolysis. K result canceled due to hemolysis. Specimen moderately hemolyzed. K Cancelled due to moderate hemolysis. NOTIFIED VIRGEN OLIVAS RN @ [phone] ON 01/18/24 [facility] Ordering Provider: ADINA WALTON Report Released Date/Time: Jan 18, 2024 04:23 AM Reporting Lab: [facility] [address] [place] [phone] Performing Lab: [address] [address] CREATININE 1.43 mg/dL H 0.7-1.3 UREA NITROGEN [...] 65.9 >60 Jan 18, 2024 04:22 AM [facility] CBC BLOOD Specimen Type: BLOOD No comment entered. Ordering Provider: ADINA WALTON Report Released Date/Time: Jan 18, 2024 04:23 AM Reporting Lab: [facility] [address] [address] Performing Lab: [facility] [address] [address] WBC 8.4 10*3/uL 3.6-11.2 RBC 5.61 10*6/uL [...] 20 Jan 18, 2024 04:22 AM [facility] LIPASE PLASMA Specimen Type: PLASM A Comment: *COMPREHENSIVE METABOLIC PANEL Not Performed: Jan 18, 2024@05:09 by *MILIEU TECHNICIAN Reason: DUPLICATE SPECIMEN ORDER. SEE ORDER [id number] Aspartate Transaminase result may show positive bias due to hemolysis. K result canceled due to hemolysis. Specimen moderately hemolyzed. Ordering Provider: ADINA WALTON Report Released Date/Time: Jan 18, 2024 04:36 AM Reporting Lab: [facility] [address] [address] Performing Lab: [facility] [address] [place] [phone] LIPASE 34 U/L 8-78 Jan 18, 2024 04:22 AM [facility] GGT GAMMA-GT PLASMA Specimen Type: PLASM A Comment: *COMPREHENSIVE METABOLIC PANEL Not Performed: Jan 18, 2024@05:09 by *MILIEU TECHNICIAN Reason: DUPLICATE SPECIMEN ORDER. SEE ORDER [id number] Aspartate Transaminase result may show positive bias due to hemolysis. K result canceled due to hemolysis. Specimen moderately hemolyzed. Ordering Provider: ADINA WALTON Report Released Date/Time: Jan 18, 2024 04:36 AM Reporting Lab: [facility] [address] [facility] [address] Performing Lab: [facility] [address] [facility] [address] GGT GAMMA-GT 99 [IU]/L H 12-64 Social [...] PM VA-TOBACCO QUIT 15 YRS OR MORE [facility] Tobacco Use History This section includes a history of the smoking, or tobacco-related health factors, that were collected on or before the date of the Encounter. The data comes from the [place] facility where the Encounter took place. Date/Time Smoking Status/Tobacco Use Comment F acility Jan 08, 2024 04:16 PM VA-TOBACCO QUIT 15 YRS OR MORE [facility] Dec 18, 2023 09:41 AM VA-TOBACCO FORMER USER [facility] Dec 18, 2023 09:41 AM VA-TOBACCO QUIT 1 TO < 5 YRS [facility] Advance Directives: All historical and current [...] NO TIFICATION AND SCREENING SYLWIA SANTIAGO [facility] May 14, 2023 ADVANCE DIRECTIVE NO TIFICATION AND SCREENING SYLWIA SANTIAGO [facility] Encounter Notes: All associated encounter notes This section contains the clinical notes associated to the Encounter. Date/Time Encounter Note(s) Provider Source February 04, 2024 09:49 AM ANESTHESIOLOGY POS T OPERATIVE E & M NOTE: LOCAL TITLE: ANESTHESIA POST-OP STL STANDARD TITLE: ANESTHESIOLOGY POST OPERATIVE E & M NOTE DATE OF NOTE: FEBRUARY 04, 2024@09:49 ENTRY DATE: FEBRUARY 04, 2024@09:50:03 AUTHOR: GABRIELA SPARROW EXP COSIGNER: URGENCY: STATUS: COMPLETED Anesthesia Post-Anesthetic No Complications: /es/ GABRIELA SPARROW MD Staff Physician, Anesthesiology Signed: 02/04/2024 09:50 GABRIELA SPARROW [facility] February 04, 2024 08:40 AM ANESTHESIOLOGY PRE OPERATIVE E & M NOTE: LOCAL TITLE: ANESTHESIA PRE-OP STL STANDARD TITLE: ANESTHESIOLOGY PRE OPERATIVE E & M NOTE DATE OF NOTE: FEBRUARY 04, 2024@08:40 ENTRY DATE: FEBRUARY 04, 2024@08:40:15 AUTHOR: GABRIELA SPARROW EXP COSIGNER: URGENCY: STATUS: COMPLETED Pre-Operative Diagnosis: GERD Operation proposed: EGD Vitals: Age: 33 Weight: 248.1 lb [112.54 kg] (02/03/2024 08:26) Height: 74 in [188.0 cm] (03/13/2023 10:24) Blood Pressure: 116/74 (02/03/2024 08:26) Pulse: 82 (02/03/2024 08:26) Temp: 97.3 F [36.3 C] (02/03/2024 08:26) Resp: 16 (02/03/2024 08:26) SpO2: 97% (02/03/2024 08:26) BMI: 31.9 Allergies: Patient has answered NKA Medications: ACTIVE INPT MEDS: No medications found. Active Outpatient Medications (including Supplies): Active Outpatient Medications Status 1) BUPROPION HCL 150MG 24HR SA TAB TAKE ONE TABLET BY ACTIVE MOUTH EVERY MORNING FOR DEPRESSION SWALLOW WHOLE - DO NOT CRUSH OR CHEW. 2) ONDANSETRON 4MG ORAL DISINTEGRATING TAB TAKE ONE ACTIVE TABLET UNDER THE TONGUE EVERY EIGHT(8) HOURS NEEDED FOR NAUSEA/VOMITING Most Recent Labs/CXR/EKG Results HGB 16.1 g/dL 01/18/2024 04:22 HCT 47.9 % (01/18/24 04:22) PLT 215 10*3/uL 01/18/2024 04:22 WBC 8.4 10*3/uL (01/18/24 04:22) PT ____ No PTT EO data found No INR EO data found SODIUM 143 mEq/L 01/18/2024 04:22 POTASSIUM 3.9 mEq/L 03/11/2023 18:18 CHLORIDE 104 mEq/L 01/18/2024 04:22 UREA NITROGEN 12.9 mg/dL 01/18/2024 04:22 CREATININE 1.43 H mg/dL 01/18/2024 04:22 CALCIUM 10.1 mg/dL 01/18/2024 04:22 CARBON DIOXIDE 30 mEq/L 01/18/2024 04:22 GLUCOSE 106 H mg/dL 01/18/2024 04:22 EGFR (CKD-EPI 2020) 65.9 01/18/2024 04:22 ALBUMIN 4.3 g/dL 01/18/2024 04:22 HGA1C 5.4 % 01/01/2023 10:25 ALKALINE PHOSPHATASE 90 U/L 01/18/2024 04:22 SGPT/ALT 37 U/L (01/18/24 04:22) SGOT/AST 62 U/L H (01/18/24 04:22) TOTAL BILIRUBIN 0.9 mg/dL 01/18/2024 04:22 No GLUCOSE,BLOOD-poct (STL) data found URINE COLOR Yellow 04/18/2022 12:22 APPEARANCE Clear 04/18/2022 12:22 U.PH 6.5 04/18/2022 12:22 U.BILIRUBIN Negative mg/dL 04/18/2022 12:22 U.NITRITE Negative mg/dL 04/18/2022 12:22 URINE RBC/HPF 1 /HPF 04/18/2022 12:22 URINE WBC/HPF 1 /HPF 04/18/2022 12:22 SQUAMOUS EPITH. <1 /HPF 04/18/2022 12:22 MUCUS RARE /LPF 04/18/2022 12:22 UDS: AMPHET/METHAMPHETAMINE Negative ng/mL 04/18/2022 12:22 BENZODIAZEPINES (STL) Negative ng/mL 04/18/2022 12:22 CANNABINOIDS Negative ng/mL 04/18/2022 12:22 COCAINE METABOLITES Negative ng/mL 04/18/2022 12:22 OPIATES Negative ng/mL 04/18/2022 12:22 TEST: No TEST LAST ONE EO data found No HIV SCREENING EO data found [facility] Hep C tests in last five years. HEP C Ab HCV Ab (STL) Nonreactive S/CO (04/18/22 12:21) CXR: Impression for CHEST PORTABLE, 03/11/23, case 168 Normal AP chest. READING PHYSICIAN: Dawson Gonzales -[phone] 03/11/2023 18:41 CDT [facility] National Teleradiology Program [phone] (For Medical Practitioner Use Only) Attention Patients / Veterans: If you have questions or concerns about these test results, please contact your ordering provider or primary care team. EKG: Problem List: 1) Depressive disorder 2) Sleep disorder 3) [...] 17) Allergic rhinitis 18) Vitamin D deficiency REVIEW OF SYSTEMS: RESPIRATORY: Recent or current SOB: None Asthma: none Acute Bronchitis: none Pneumonia:none Sleep Apnea: none Wheezing:none CARDIAC: Chest Pain: None Hypertension: none Coronary Artery Disease: none Dysrythmia: none Peripheral Vascular Disease: none SANDWICH MAKER: Cerebral Vascular Accident: none Seizures: none Depression: yes brain injury ENDOCRINE: Thyroid Disease: none Type 1 or Type 2 DM: none Insulin use and dependent: None Glucose: at AM RENAL SYSTEM: Hematuria: none Kidney Stones: none Urosepsis: none Urinary Obstruction: none Chronic Renal Insufficiency (CRI): none GI SYSTEM: Liver Disease: none Hepatitis C: none GERD: yes HEMATOLOGY: Anemia: none Leukemia: none Lymphoma: none Thrombocytopenia: none MUSCULOSKELETAL: Rheumatoid Arthritis: none Degenerative Joint Disease: none Muscular Disease: none Morbid Obesity: yes HABITS:none ETOH use:none Smoking History:none Illicit Drugs: none PSH: No previous Anesthesia complications Physical Exam: Auscultation Finding: Heart Sounds: Regular Rate Breath Sounds: Clear AIRWAY: MP CLASS:II SUBMANDIBULAR SPACE:3 fingerbreaths RANGE OF MOTION: FULL TEETH: Okay ASA: 2. A patient with mild systemic disease. ANESTHETIC PLAN: Monitored Anesthesia Care (MAC) Planned anesthetic technique and options were discussed with the patient or guardian. Pre-Induction Reassessment: NPO Greater than 8 hours: Yes Beta Genevieve Therapy: none Pre-op Antibiotic Therapy Administration: No /cydney/ GABRIELA SPARROW MD Staff Physician, Anesthesiology Signed: 02/04/2024 08:42 Receipt Acknowledged By: 02/04/2024 08:45 /cydney/ DOMINGA MOSLEY CERTIFIED REGISTERED NURSE CASE SUPERVISOR GABRIELA SPARROW [facility]
--- OUTSIDE RECORDS SUMMARY | 2025-01-15 07:41 | XMS_ITS | Encounter Summary ---
Author Name [facility] [place] [facility] [place] Address [address] [place] [address] Care Team Providers Care Office Support Name Role Phone BROOKLYN ARAGON Primary Care [...] FOCUS FAMIL Y Oct 08, 2021 132 [id number] [phone] REISING,T YLER PATIENT CAREMARK ([id number])RX PRESCRIPT ION GEHA Oct 04, 2024 [id number] [phone] REISING,T YLER PATIENT CAREMARK FEP [id number] PRESCRIPT ION FEPRX Aug 16, 2019 [id number] [phone] REISING,T YLER PATIENT GEHA PREFERRED PROVIDER ORGANIZAT ION (PPO) GEHA STAND EVELYN Oct 04, 2024 [id number] [phone] REISING,T YLER PATIENT Selected Encounter This section includes the information on record at [place] for the Encounter. Date/Time Encounter Type Encounter Description Reason Provider Source May 15, 2024 09:30 AM OFFICE O/P EST LOW 20 MIN GENERAL SURGERY ICD-10-CM K81.2 Acute cholecystitis with chronic cholecystitis MARY DIAZ Karen Encounter Template Text not used by [place] Assessments - Encounter Diagnoses This section includes the primary and secondary diagnoses documented for the Encounter. Date/Time Primary/Secondary Diagnosis Diagnosis Name Provider Source May 15, 2024 10:47 AM PRIMARY Acute cholecystitis with chronic cholecystitis AUSTIN BERNARD [facility] Plan of Treatment: Future Appointments (+ 6 months) and Future Tests (+/- 45 days) The Plan of Treatment section includes future care activities for the patient from all [facility]. This section includes future appointments and future orders which are active, pending or scheduled. Future Appointments This section includes appointments that were scheduled to occur 6 months from the date of the Encounter, up to a maximum of 20 appointments. The data comes from all [facility] facilities. Appointment Date/Time Appointment Type Appointme nt Facility Name May 20, 2024 03:30 PM AMBULATORY - NONE [facility] May 28, 2024 02:00 PM AMBULATORY - PSYCHIATRY [facility] Jun 03, 2024 11:30 AM AMBULATORY - SURGERY [facility] Jun 11, 2024 01:00 PM AMBULATORY - PSYCHIATRY [facility] Jun 29, 2024 03:00 PM AMBULATORY - NONE [facility] Jul 17, 2024 01:24 PM AMBULATORY - MEDICINE [facility] Jul 22, 2024 10:30 AM AMBULATORY - MEDICINE [facility] Jul 24, 2024 04:14 AM AMBULATORY - MEDICINE [facility] Aug 07, 2024 03:00 PM AMBULATORY - MEDICINE [facility] Oct 07, 2024 04:15 PM AMBULATORY - MEDICINE [facility] Oct 10, 2024 05:20 AM AMBULATORY - MEDICINE [facility] Active, Pending, and Scheduled Orders This section includes a listing of several types of active, pending, and scheduled orders, including clinic medications orders, diagnostic test orders, procedure orders and consult orders; where the start date of the order is 45 days before the date of the Encounter or 45 days after the date of theEncounter. The data comes from all [place] treatment facilities. Test Date/Time Test Type Test Details Facility Name Apr 16, 2024 11:39 AM Laboratory - Chemi stry Order MRSA SURVL NARES DNA [facility] Apr 18, 2024 09:38 AM Laboratory - Chemi stry Order MRSA SURVL NARES DNA [facility] Jun 29, 2024 12:00 AM Laboratory - Chemi stry Order VITAMIN D, 25-HYDROXY GOLD/RED SST SERUM SP [facility] Lab Results: +/- 30 days of the encounter This section includes the Chemistry and Hematology Lab Results on record with [place] for the patient. Radiology Reports and Pathology Reports are provided separately, in subsequent sections. Lab Results This section contains the Chemistry/Hematology Results that were resulted 30 days before or 30 daysafter the date of the Encounter. Date/Time Source Result Type Result - Unit Interpretation Reference Range Specimen Type Comment Apr 17, 2024 08:49 PM [facility] BASIC METABOLIC PANEL PLASMA Specimen Type: PLASMA Comment: No hemolysis noted. Ordering Provider: JAKUB DOAN V Report Released Date/Time: Apr 16, 2024 04:01 PM Reporting Lab: [facility] [address] [facility] [address] Performing Lab: [address] [address] CREATININE 1.22 mg/dL 0.7-1.3 UREA NITROGEN 12.4 mg/dL 9.0-25.0 GLUCOSE 131 mg/dL H 72-99 SODIUM 139 meq/L 136-145 POTASSIUM 4.6 meq/L 3.5-5 CHLORIDE 105 meq/L 98-107 CARBON DIOXIDE 23 meq/L 22-31 CALCIUM 9.2 mg/dL 8.4-10.4 EGFR (CKD-EPI 2020) 79.3 >60 Apr 17, 2024 08:49 PM [facility] CBC BLOOD Specimen Type: BLOOD No comment entered. Ordering Provider: JAKUB DOAN V Report Released Date/Time: Apr 16, 2024 04:01 PM Reporting Lab: [place] [address] [facility] [address] Performing Lab: [place] [address] [facility] [address] WBC 11.4 10*3/uL H 3.6-11.2 RBC 5.43 [...] 0.00-0. 20 Apr 16, 2024 08:18 PM [facility] APTT PLASMA Specimen Type: PLASM A No comment entered. Ordering Provider: JAKUB DOAN V Report Released Date/Time: Apr 16, 2024 04:02 PM Reporting Lab: [place] [address] [facility] [address] Performing Lab: [place] [address] [facility] [address] APTT 28.9 s 26.7-39.9 Apr 16, 2024 08:18 PM [facility] BASIC METABOLIC PANEL PLASMA Specimen Type: PL ASMA Comment: No hemolysis noted. Ordering Provider: JAKUB DOAN V Report Released Date/Time: Apr 16, 2024 04:01 PM Reporting Lab: [address] [address] Performing Lab: [address] [address] CREATININE 1.21 mg/dL 0.7-1.3 UREA NITROGEN 11.5 mg/dL 9.0-25.0 GLUCOSE 99 mg/dL 72-99 SODIUM 141 meq/L 136-145 POTASSIUM 3.8 meq/L 3.5-5 CHLORIDE 105 meq/L 98-107 CARBON DIOXIDE 25 meq/L 22-31 CALCIUM 9.2 mg/dL 8.4-10.4 EGFR (CKD-EPI 2020) 80.1 >60 Apr 16, 2024 08:18 PM [facility] PT/INR NEW (STL-MA) PLASMA Specimen Type: PLAS MA No comment entered. Ordering Provider: JAKUB DOAN V Report Released Date/Time: Apr 16, 2024 04:02 PM Reporting Lab: [address] [address] Performing Lab: [address] [address] PROTIME 12.3 s 9.4-12.5 INR VALUE 1.1 {INR} Apr 16, 2024 08:18 PM [facility] CBC BLOOD Specimen Type: BLOOD No comment entered. Ordering Provider: JAKUB DOAN V Report Released Date/Time: Apr 16, 2024 04:01 PM Reporting Lab: [address] [address] Performing Lab: [address] [address] WBC 6.8 10*3/uL 3.6-11.2 RBC 5.13 10*6/uL [...] 0.00-0. 20 Apr 16, 2024 03:25 AM [facility] LIPASE PLASMA Specimen Type: PLASM A Comment: No hemolysis noted. Ordering Provider: ADINA WALTON Report Released Date/Time: Apr 16, 2024 03:23 AM Reporting Lab: [address] [address] Performing Lab: [address] [address] LIPASE 36 U/L 8-78 Apr 16, 2024 03:25 AM [facility] GGT GAMMA-GT PLASMA Specimen Type: PLASM A Comment: No hemolysis noted. Ordering Provider: ADINA WALTON Report Released Date/Time: Apr 16, 2024 03:23 AM Reporting Lab: [facility] [address] [facility] [address] Performing Lab: [facility] [address] [place] [phone] GGT GAMMA-GT 25 [IU]/L 12-64 Apr 16, 2024 03:25 AM [facility] COMPREHENSIVE METABOLIC PANEL PLASMA Specimen Type: PLASMA Comment: No hemolysis noted. Ordering Provider: ADINA WALTON Report Released Date/Time: Apr 16, 2024 03:23 AM Reporting Lab: [facility] [address] [place] [phone] Performing Lab: [facility] [address] [place] [address] CREATININE 1.42 mg/dL H 0.7-1.3 UREA NITROGEN [...] 66.1 >60 Apr 16, 2024 03:25 AM [facility] CBC BLOOD Specimen Type: BLOOD No comment entered. Ordering Provider: ADINA WALTON Report Released Date/Time: Apr 16, 2024 03:23 AM Reporting Lab: [facility] [address] [facility] [address] Performing Lab: [facility] [address] [facility] [address] WBC 8.8 10*3/uL 3.6-11.2 RBC 5.41 10*6/uL [...] Pain Height Weight Body Mass Index Source May 15, 2024 09:54 AM 96.2 89 117/65 20 98 2 74 244.7 31 [facility] Social History: Smoking Status (Most current) and Tobacco Use (All prior to encounter date) This section includes the most current, and the historical, smoking and tobacco- related health factors from the [place] facility where the Encounter took place. Current Smoking Status This section includes the most current smoking, or tobacco-related health factor, from the [place] facility where the Encounter took place. Date/Time Current Smoking Status Comment Facil ity Jan 08, 2024 04:16 PM VA-TOBACCO QUIT 15 YRS OR MORE [facility] Tobacco Use History This section includes a history of the smoking, or tobacco-related health factors, that were collected on or before the date of the Encounter. The data comes from the [facility] where the Encounter took place. Date/Time Smoking Status/Tobacco Use Comment F acility Jan 08, 2024 04:16 PM VA-TOBACCO QUIT 15 YRS OR MORE [facility] Dec 18, 2023 09:41 AM VA-TOBACCO FORMER USER [facility] Dec 18, 2023 09:41 AM VA-TOBACCO QUIT 1 TO < 5 YRS [facility] Advance Directives: All historical and current Section Date Range: From patient's date of to the date document was created. This section includes ALL of a patient's completed or amended [place] Advance and Rescinded Directives. The entries below indicate that a directive exists for the patient, but an actual copy is not included with this document. The data comes from all [facility]. Date Advance Directives Provider Source Aug 28, 2023 ADVANCE DIRECTIVE NO TIFICATION AND SCREENING SYLWIA SANTIAGO [facility] May 14, 2023 ADVANCE DIRECTIVE NO TIFICATION AND SCREENING SYLWIA SANTIAGO [facility] Radiology Reports: +/- 30 [...] the Encounter. The data comes from all [place] treatment facilities. Date/Time Radiology Report Provider Source May 20, 2024 02:[address] LUMBAR SPINE W/O CONT: MERLE LAFLEUR [id number] -1990 M Exm Date: MAY 20, 2024@14:53 Req Phys: SOBIA SORENSEN Loc: [facility]-NEUROSURGERY COMPOUND MACHINE OPERATOR 1 (Req'g Lo Img Loc: [facility]-CT IMAGING [facility] Service: [facility] [address] [place] [address] (Case [id number] COMPLETE) CT LUMBAR SPINE W/O CONT (CT Detailed) CPT:41751 Reason for Study: F/u L2, L3 compression fractyre Clinical History: Responsible Attending: Valarie Attending Contact Number: [phone] Resident Contact Number: Allergies listed in CPRS chart: Patient has answered NKA Creatinine: CREATININE 1.22 mg/dL 04/17/2024 20:00 /eGFR: STL EGFR (within one year). CREATININE 1.22 mg/dL (04/17/24 20:00) Wt: 241 lb [109.32 kg] (04/27/2024 14:41) History of: Renal failure, chronic or acute renal disease: NO Report Status: Verified Date Reported: MAY 21, 2024 Date Verified: MAY 21, 2024 Reverse Unit Operator E-Sig:/ES/Ronaldo Velasquez MD. FACR. Report: History: F/u [...] Interpreting Staff: Ronaldo Velasquez MD. FACR, Neuroradiologist (Reverse Unit Operator) /RONALDO ARZATE [facility] May 15, 2024 09:10 AM BONE DENSITY-P: MERLE LAFLEUR [id number] -1990 M Exm Date: MAY 15, 2024@09:10 Req Phys: SOBIA SORENSEN Pat Loc: [facility]-NEUROSURGERY COMPOUND MACHINE OPERATOR 1 (Req'g Lo Img Loc: [facility]-BONE DENSITY Service: [facility] [address] [place] [address] (Case [id number] COMPLETE) NM BONE DENSITY(DXA), AXIAL SKELE(NM Detailed) CPT:93649 Reason for Study: L2, L3 comprerssion (Case [id number] COMPLETE) NM BONE DENSITY(DXA), APPENDICULA(NM Detailed) CPT:79200 Clinical History: BONE DENSITY Osteoporosis and Vertebral Fracture Screening Information Reason for exam: Compression fracture WT: 241 lb [109.32 kg] (04/27/2024 14:41) HT: 74 in [188.0 cm] (04/27/2024 14:41) Report Status: Verified Date Reported: MAY 15, 2024 Date Verified: MAY 15, 2024 Reverse Unit Operator E-Sig:/ES/Leticia Childs M.D. Report: Dual -Energy X-ray Absorptiometry (DXA) with Trabecular Bone Score (TBS) calculation Findings: Bone mineral density measurements of the forearm, proximal femur and lumbar spine with their appropriate regions of interest outlined are available for viewing in [employer] Radiology Viewer. Lumbar spine: Measured [...] Staff: Leticia Childs M.D., NUCLEAR MEDICINE PHYSICIAN (Reverse Unit Operator) /LETICIA LOYA [facility] May 01, 2024 09:48 AM MRI SPINE LUMBAR W/O CONT: MERLE LAFLEUR [id number] -1990 M Exm Date: MAY 01, 2024@09:48 Req Phys: SOBIA SORENSEN Loc: [facility]-NEUROSURGERY COMPOUND MACHINE OPERATOR 1 (Req'g Lo Img Loc: [facility]-MAGNETIC RESONANCE IMAGING Service: Unknown [address] [address] (Case [id number] COMPLETE) MRI SPINE LUMBAR W/O CONT (MRI Detailed) CPT:96115 Reason for Study: Low back pain. L2, [...] Apr Responsible Attending: Valarie Attending Contact Number: [phone] Resident Contact Number: Does your patient have [...] 01, 2024 Date Verified: MAY 01, 2024 Reverse Unit Operator E-Sig:/ES/MONICA DUARTE Report: INDICATION: Low back pain. [...] above. Primary Interpreting Staff: MONICA DUARTE, RADIOLOGIST (Reverse Unit Operator) /MONICA ROJAS [facility] Apr 16, 2024 07:12 AM US ABDOMEN LIMITED W/BLOOD FLOW DOPPLER: MERLE LAFLEUR [id number] -1990 M Ex Date: APR 16, 2024@07:12 Req Phys: ADINA WALTON Loc: [facility]-EMERGENCY DEPT 1ST SHIFT (R Img Loc: [facility]-ULTRASOUND [facility] Service: [address] [address] (Case [id number] COMPLETE) US ABDOMEN LTD, SINGLE ORG OR MORTEZA(US Detailed) CPT:93631 Reason for Study: eval acute cholecystitis (Case [id number] COMPLETE) US BLOOD FLOW ABD/RENAL (LTD) (US Detailed) CPT:70209 Clinical History: Organ to Image: Gallbladder Reason for exam: ho cholelithiasis. here with RUQ abdominal pain and nausea/emesis. Evaluate for acute cholecystitis Report Status: Verified Date Reported: APR 16, 2024 Date Verified: APR 16, 2024 Reverse Unit Operator E-Sig:/ES/JAIRO GARCIA Report: Case [id number], [id number]. US ABDOMEN LTD, SINGLE ORG OR QUADRANT, [...] findings. Primary Interpreting Staff: JAIRO GARCIA, RADIOLOGIST (Reverse Unit Operator) Primary Interpreting Resident: JOSE ROBERTO RAMSAY, Resident Physician /JAIRO NGUYEN [facility] Apr 16, 2024 04:[address] ABD PEL W/O & W CONT & 3D: MERLE LAFLEUR [id number] -1990 M Exm Date: APR 16, 2024@04:46 Req Phys: ADINA WALTON Loc: [facility]-EMERGENCY DEPT 1ST SHIFT (R Img Loc: [facility]-CT IMAGING [facility] Service: Unknown [facility] [address] [place] [address] (Case [id number] COMPLETE) CT ABDOMEN AND PELVIS W/CONTRAST (CT Detailed) CPT:53800 Contrast Media : Non-ionic Iodinated Reason for Study: evaluate for acute cholecystitis (Case [id number] COMPLETE) CT 3D RENDERING W INDEPENDENT WOR(CT Detailed) CPT:60372 Clinical History: Responsible Attending: jordon Attending Contact [...] 16, 2024 Date Verified: APR 16, 2024 Reverse Unit Operator E-Sig:/ES/RANDALL JULES MD Report: Spiral axial imaging [...] Primary Interpreting Staff: RANDALL JULES MD, Radiologist (Reverse Unit Operator) /RANDALL BLANK [facility] Pathology Reports: +/- 30 [...] the Encounter. The data comes from all [place] treatment facilities. Date/Time Pathology Report Provider Source [...] seen, and no masses are grossly identified. Coach sections of the wall from the body [...] Performing Laboratory: Surgical Pathology Report Performed By: [address] [id number] [address] [address] $FTR - - - - - - [...] - - - - - - - CIARRAMERLE FERNÁNDEZ STANDARD FORM 515 ID:[id number] SEX:M :1990 AGE: 34 LOC:APFEE PCP: Jaswinder Villafuerte MD /cydney/ CHELI MORALES Pathologist Signed: 04/21/2024 11:44 CHELI MORALES [facility] Encounter Notes: All associated encounter notes This section contains the clinical notes associated to the Encounter. Date/Time Encounter Note(s) Provider Source May 15, 2024 10:15 AM SURGERY NOTE: LOCAL TITLE: GENERAL SURGERY NOTE STL STANDARD TITLE: SURGERY NOTE DATE OF NOTE: MAY 15, 2024@10:15 ENTRY DATE: MAY 15, 2024@10:15:33 AUTHOR: AUSTIN BERNARD EXP COSIGNER: URGENCY: STATUS: COMPLETED GENERAL SURGERY NOTE STL Has ADDENDA Progress Note MAY 15, 2024 CC: Follow up 4 weeks s/p laparoscopic cholecystectomy HPI: 34M with medical history of depression, anxiety, MARY, GERD, migraines, and TBI, who presented to the ED with acute on chronic cholecystitis s/p laparoscopic cholecystectomy on 04/17/24, presents to general surgery clinic for postoperative follow up. Patient is doing well. Pain is well controlled without need for pain medications. Epigastric pain that was previously felt for years has now resolved. Appetite is good. Patient reports churning of his abdomen when eating fatty foods and mild diarrhea (1x/week). Patient reports enjoying fatty foods that he previously could not eat due to abdominal pain. Surgical pathology revealed severe acute and chronic cholecystitis and cholelithiasis. O: Temp: 96.2 F [35.7 C] (05/15/2024 09:54) Pulse Ox: Measurement DT POx (L/MIN)(%) 05/15/2024 09:54 98 04/27/2024 14:41 97 04/18/2024 12:32 95 04/18/2024 09:15 95 PULSE: 89 (05/15/2024 09:54) RESPIRATION: 20 (05/15/2024 09:54) BLOOD PRESSURE: 117/65 (05/15/2024 09:54) PHYSICAL EXAM: NEURO: A/Ox4, NAD, well-appearing LUNGS:nonlabored breathing on RA HEART: regular rate ABDOMEN:soft, nondistended, nontender; incisions healing well, sutures removed EXT: warm and well perfused, no peripheral edema Surgical Pathology 04/17/24 GROSS DESCRIPTION: Rose Morales MD 04/20/24 Received [...] seen, and no masses are grossly identified. Coach sections of the wall from the body and fundus are submitted in A1, and the shaved cystic duct margin is submitted in A2. MICROSCOPIC EXAM: Cheli Morales MD 04/21/2024 Microscopic description substantiates final diagnosis. DIAGNOSIS: GALLBLADDER, LAPAROSCOPIC CHOLECYSTECTOMY: - SEVERE ACUTE AND CHRONIC CHOLECYSTITIS - CHOLELITHIASIS - NEGATIVE FOR MALIGNANCY ASSESSMENT/PLAN: 34M with medical history of depression, anxiety, MARY, GERD, migraines, and TBI, who presented to the ED with acute on chronic cholecystitis s/p laparoscopic cholecystectomy on 04/17/24, presents to general surgery clinic for postoperative follow up. Patient is doing well postoperatively. Patient educated on decreasing fatty food intake, as this is likely the reason for his mild abdominal discomfort and diarrhea since this is a change in diet from his baseline. Pathology was shared with patient. Patient may return to clinic as needed. /cydney/ AUSTIN BERNARD VP PRODUCTION Signed: 05/15/2024 10:31 Receipt Acknowledged By: 05/15/2024 10:48 /da DIAZ SURGEON 05/15/2024 ADDENDUM STATUS: COMPLETED s/p ying doing well. Incisions well healed. One with suture exposed. Trimmed. Patient seen and examined. Path reviewed. RTC PRN /da DIAZ SURGEON Signed: 05/15/2024 10:48 AUSTIN BERNARD [facility]
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
--- OUTSIDE RECORDS SUMMARY | 2025-01-15 07:41 | XMS_ITS ---
Author Name [facility] Address [address] [place] [address] Care Team Providers Care Supervising Producer Name Role Phone BROOKLYN ARAGON Primary Care [...] FOCUS FAMIL Y Oct 08, 2021 132 [id number] [phone] REISING,T YLER PATIENT CAREMARK ([id number])RX PRESCRIPT ION GEHA Oct 04, 2024 [id number] [phone] REISING,T YLER PATIENT CAREMARK FEP [id number] PRESCRIPT ION FEPRX Aug 16, 2019 [id number] [phone] REISING,T YLER PATIENT GEHA PREFERRED PROVIDER ORGANIZAT ION (PPO) GEHA STAND EVELYN Oct 04, 2024 [id number] [phone] REISING,T YLER PATIENT Selected Encounter This section includes the information on record at NH for the Encounter. Date/Time Encounter Type Encounter Description Reason Pro vider Source Apr 17, 2024 03:53 PM Inpatient Visit ADMIN PAT ACTIVTIES (MASNONCT) KELI KULKARNI Karen Encounter Template Text not used by NH Plan of Treatment: Future Appointments (+ 6 months) and Future Tests (+/- 45 days) The Plan of Treatment section includes future care activities [facility] the [facility] This section includes future appointments and [...] 22, 2024 02:00 PM AMBULATORY - PSYCHIATRY [facility] Apr 22, 2024 03:30 PM AMBULATORY - MEDICINE [facility] Apr 27, 2024 02:45 PM AMBULATORY - SURGERY [facility] May 01, 2024 11:00 AM AMBULATORY - NONE [facility] May 15, 2024 09:30 AM AMBULATORY - SURGERY [facility] May 20, 2024 03:30 PM AMBULATORY - NONE [facility] May 28, 2024 02:00 PM AMBULATORY - PSYCHIATRY [facility] Jun 03, 2024 11:30 AM AMBULATORY - SURGERY [facility] Jun 11, 2024 01:00 PM AMBULATORY - PSYCHIATRY [facility] Jun 29, 2024 03:00 PM AMBULATORY - NONE [facility] Jul 17, 2024 01:24 PM AMBULATORY - MEDICINE [facility] Jul 22, 2024 10:30 AM AMBULATORY - MEDICINE [facility] Jul 24, 2024 04:14 AM AMBULATORY - MEDICINE [facility] Aug 07, 2024 03:00 PM AMBULATORY - MEDICINE [facility] Oct 07, 2024 04:15 PM AMBULATORY - MEDICINE [facility] Oct 10, 2024 05:20 AM AMBULATORY - MEDICINE [facility] Active, Pending, and Scheduled Orders This section includes a listing of several types of active, pending, and scheduled orders, including clinic medications orders, diagnostic test orders, procedure orders and consult orders; where the start date of the order is 45 days before the date of the Encounter or 45 days after the date of theEncounter. The data comes from all [facility] facilities. Test Date/Time Test Type Test Details Facility Name Mar 06, 2024 12:00 AM Laboratory - Chemistry Order CBC (DIFF&PLT) BLOOD [facility] Mar 06, 2024 12:00 AM Laboratory - Chemistry Order COMPREHENSIVE METABOLIC PANEL BLOOD PLASMA [facility] Mar 06, 2024 12:00 AM Laboratory - Chemistry Order URINALYSIS URINE [facility] Mar 06, 2024 12:00 AM Laboratory - Chemistry Order LIPID PANEL BLOOD PLASMA [facility] Mar 06, 2024 12:00 AM Laboratory - Chemistry Order TSH-G,LC,J,T BLOOD PLASMA [facility] Mar 06, 2024 12:00 AM Laboratory - Chemistry Order HEMOGLOBIN %A1C PROFILE BLOOD [facility] Mar 06, 2024 12:00 AM Laboratory - Chemistry Order MICROALBUMINURIA(IVONNE) URINE [facility] Apr 16, 2024 11:39 AM Laboratory - Chemistry Order MRSA SURVL NARES DNA [facility] Apr 18, 2024 09:38 AM Laboratory - Chemistry Order MRSA SURVL NARES DNA [facility] Lab Results: +/- 30 days [...] Type Comment Apr 17, 2024 08:49 PM [facility] BASIC METABOLIC PANEL PLASMA Specimen Type: PLASMA Comment: No hemolysis noted. Ordering Provider: JAKUB DOAN V Report Released Date/Time: Apr 16, 2024 04:01 PM Reporting Lab: [place] [address] [facility] [address] Performing Lab: [address] [place] [address] CREATININE 1.22 mg/dL 0.7-1.3 UREA NITROGEN 12.4 mg/dL 9.0-25.0 GLUCOSE 131 mg/dL H 72-99 SODIUM 139 meq/L 136-145 POTASSIUM 4.6 meq/L 3.5-5 CHLORIDE 105 meq/L 98-107 CARBON DIOXIDE 23 meq/L 22-31 CALCIUM 9.2 mg/dL 8.4-10.4 EGFR (CKD-EPI 2020) 79.3 >60 Apr 17, 2024 08:49 PM [facility] CBC BLOOD Specimen Type: BLOO D No comment entered. Ordering Provider: JAKUB DOAN V Report Released Date/Time: Apr 16, 2024 04:01 PM Reporting Lab: [address] [address] Performing Lab: [address] [address] WBC 11.4 10*3/uL H 3.6-11.2 RBC 5.43 [...] 0.00-0. 20 Apr 16, 2024 08:18 PM [facility] APTT PLASMA Specimen Type: PLASM A No comment entered. Ordering Provider: JAKUB DOAN V Report Released Date/Time: Apr 16, 2024 04:02 PM Reporting Lab: [facility] [address] [place] [address] Performing Lab: [address] [address] APTT 28.9 s 26.7-39.9 Apr 16, 2024 08:18 PM [facility] BASIC METABOLIC PANEL PLASMA Specimen Type: PL ASMA Comment: No hemolysis noted. Ordering Provider: JAKUB DOAN V Report Released Date/Time: Apr 16, 2024 04:01 PM Reporting Lab: [address] [address] Performing Lab: [address] [address] CREATININE 1.21 mg/dL 0.7-1.3 UREA NITROGEN 11.5 mg/dL 9.0-25.0 GLUCOSE 99 mg/dL 72-99 SODIUM 141 meq/L 136-145 POTASSIUM 3.8 meq/L 3.5-5 CHLORIDE 105 meq/L 98-107 CARBON DIOXIDE 25 meq/L 22-31 CALCIUM 9.2 mg/dL 8.4-10.4 EGFR (CKD-EPI 2020) 80.1 >60 Apr 16, 2024 08:18 PM [facility] PT/INR NEW (STL-MA) PLASMA Specimen Type: PLAS MA No comment entered. Ordering Provider: JAKUB DOAN V Report Released Date/Time: Apr 16, 2024 04:02 PM Reporting Lab: [facility] [address] [place] [address] Performing Lab: [address] [address] PROTIME 12.3 s 9.4-12.5 INR VALUE 1.1 {INR} Apr 16, 2024 08:18 PM [facility] CBC BLOOD Specimen Type: BLOOD No comment entered. Ordering Provider: JAKUB DOAN V Report Released Date/Time: Apr 16, 2024 04:01 PM Reporting Lab: [facility] [address] [facility] [place] [address] Performing Lab: [facility] [address] [facility] [address] WBC 6.8 10*3/uL 3.6-11.2 RBC 5.13 10*6/uL [...] 20 Apr 16, 2024 03:25 AM [facility] LIPASE PLASMA Specimen Type: PLASM A Comment: No hemolysis noted. Ordering Provider: ADINA WALTON Report Released Date/Time: Apr 16, 2024 03:23 AM Reporting Lab: [facility] [address] [facility] [place] [address] Performing Lab: [facility] [address] [facility] [address] LIPASE 36 U/L 8-78 Apr 16, 2024 03:25 AM [facility] GGT GAMMA-GT PLASMA Specimen Type: PLASM A Comment: No hemolysis noted. Ordering Provider: ADINA WALTON Report Released Date/Time: Apr 16, 2024 03:23 AM Reporting Lab: [facility] [address] [facility] [address] Performing Lab: [facility] [address] [facility] [address] GGT GAMMA-GT 25 [IU]/L 12-64 Apr 16, 2024 03:25 AM [facility] COMPREHENSIVE METABOLIC PANEL PLASMA Specimen Type: PLASMA Comment: No hemolysis noted. Ordering Provider: ADINA WALTON Report Released Date/Time: Apr 16, 2024 03:23 AM Reporting Lab: [facility] [address] [facility] [address] Performing Lab: [address] [address] CREATININE 1.42 mg/dL H 0.7-1.3 UREA NITROGEN [...] 66.1 >60 Apr 16, 2024 03:25 AM [facility] CBC BLOOD Specimen Type: BLOOD No comment entered. Ordering Provider: ADINA WALTON Report Released Date/Time: Apr 16, 2024 03:23 AM Reporting Lab: [facility] [address] [facility] [address] Performing Lab: [address] [address] WBC 8.8 10*3/uL 3.6-11.2 RBC 5.41 10*6/uL [...] Source Apr 17, 2024 09:57 PM 9 [facility] Apr 17, 2024 09:10 PM 8 [facility] Apr 17, 2024 08:24 PM 98 104 133/71 18 97 0 [facility] Apr 17, 2024 05:49 PM 3 [facility] Apr 17, 2024 03:30 PM 98.8 80 143/72 20 98 3 [facility] Social History: Smoking Status [...] PM VA-TOBACCO QUIT 15 YRS OR MORE [facility] Tobacco Use History This section includes a history of the smoking, or tobacco-related health factors, that were collected on or before the date of the Encounter. The data comes from the NH facility where the Encounter took place. Date/Time Smoking Status/Tobacco Use Comment F acility Jan 08, 2024 04:16 PM VA-TOBACCO QUIT 15 YRS OR MORE [facility] Dec 18, 2023 09:41 AM VA-TOBACCO FORMER USER [facility] Dec 18, 2023 09:41 AM VA-TOBACCO QUIT 1 TO < 5 YRS [facility] Advance Directives: All historical and current Section Date Range: From patient's date of to the date document was created. This section includes ALL of a patient's completed or amended NH Advance and Rescinded Directives. The entries below indicate that a directive exists for the patient, but an actual copy is not included with this document. The data comes from all NH facilities. Date Advance Directives Provider Source Aug [...] 2024 09:10 AM BONE DENSITY-P: MERLE LAFLEUR [id number] -1990 M Exm Date: MAY 15, 2024@09:10 Req Phys: SOBIA SORENSEN Loc: [facility] [place] [facility] (Req'g Lo Img Loc: [facility]BONE DENSITY Service: Unknown [facility] [address] [place] [address] (Case [id number] COMPLETE) NM BONE DENSITY(DXA), AXIAL SKELE(NM Detailed) CPT:55499 Reason for Study: L2, L3 comprerssion (Case [id number] COMPLETE) NM BONE DENSITY(DXA), APPENDICULA(NM Detailed) CPT:69159 Clinical History: BONE DENSITY Osteoporosis and Vertebral Fracture Screening Information Reason for exam: Compression fracture WT: 241 lb [109.32 kg] (04/27/2024 14:41) HT: 74 in [188.0 cm] (04/27/2024 14:41) Report Status: Verified Date Reported: MAY 15, 2024 Date Verified: MAY 15, 2024 Retail Brand Ambassador E-Sig:/ES/Leticia Childs M.D. Report: Dual -Energy X-ray Absorptiometry (DXA) with Trabecular Bone Score (TBS) calculation Findings: Bone mineral density measurements of the forearm, proximal femur and lumbar spine with their appropriate regions of interest outlined are available for viewing in [employer] Radiology Viewer. Lumbar spine: Measured [...] M.D., NUCLEAR MEDICINE PHYSICIAN (Gary) /LETICIA LOYA [facility] May 01, 2024 09:48 AM MRI SPINE LUMBAR W /O CONT: MERLE LAFLEUR [id number] -1990 M Exm Date: MAY 01, 2024@09:48 Req Phys: SOBIA SORENSEN Loc: [facility] [place] [facility] (Req'g Lo Img Loc: [facility]MAGNETIC RESONANCE IMAGING Service: Unknown [facility] [address] [place] [address] (Case [id number] COMPLETE) MRI SPINE LUMBAR W/O CONT (MRI Detailed) CPT:23639 Reason for Study: Low back pain. L2, [...] Apr Responsible Attending: Valarie Attending Contact Number: [id number] Resident Contact Number: Does your patient have [...] 01, 2024 Date Verified: MAY 01, 2024 Retail Brand Ambassador E-Sig:/ES/MONICA DUARTE Report: INDICATION: Low back pain. [...] above. Primary Interpreting Staff: MONICA DUARTE, RADIOLOGIST (Retail Brand Ambassador) /MONICA ROJAS [facility] Apr 16, 2024 07:12 AM US ABDOMEN LIMITED W/BLOOD FLOW DOPPLER: MERLE LAFLEUR [id number] -1990 M Exm Date: APR 16, 2024@07:12 Req Phys: ADINA WALTON Pat Loc: [facility]-EMERGENCY DEPT 1ST SHIFT (R Img Loc: [facility]ULTRASOUND [facility] Service: Unknown [facility], [facility] [address] [place] [address] (Case [id number] COMPLETE) US ABDOMEN LTD, SINGLE ORG OR MORTEZA(US Detailed) CPT:45985 Reason for Study: eval acute cholecystitis (Case [id number] COMPLETE) US BLOOD FLOW ABD/RENAL (LTD) (US Detailed) CPT:47365 Clinical History: Organ to Image: Gallbladder Reason for exam: ho cholelithiasis. here with RUQ abdominal pain and nausea/emesis. Evaluate for acute cholecystitis Report Status: Verified Date Reported: APR 16, 2024 Date Verified: APR 16, 2024 Retail Brand Ambassador E-Sig:/ES/JAIRO GARCIA Report: Case [id number], [id number]. US ABDOMEN LTD, SINGLE ORG OR QUADRANT, [...] findings. Primary Interpreting Staff: JAIRO GARCIA, RADIOLOGIST (Retail Brand Ambassador) Primary Interpreting Resident: JOSE ROBERTO RAMSAY, Resident Physician /JAIRO NGUYEN [facility] Apr 16, 2024 04:[address] ABD PEL W/O & W CONT & 3D: MERLE LAFLEUR [id number] -1990 M Exm Date: APR 16, 2024@04:46 Req Phys: ADINA WALTON Loc: [facility]EMERGENCY DEPT 1ST SHIFT (R Img Loc: [facility]-CT IMAGING [facility] Service: Unknown [facility], [facility] [address] [place] [address] (Case [id number] COMPLETE) CT ABDOMEN AND PELVIS W/CONTRAST (CT Detailed) CPT:20297 Contrast Media : Non-ionic Iodinated Reason for Study: evaluate for acute cholecystitis (Case [id number] COMPLETE) CT 3D RENDERING W INDEPENDENT WOR(CT Detailed) CPT:31940 Clinical History: Responsible Attending: jordon Attending Contact Number: oh Resident Contact Number: ho cholelithiasis, now wi RU abd pain, n/v. evaluate for acute cholecystitis [...] 16, 2024 Date Verified: APR 16, 2024 Retail Brand Ambassador E-Sig:/ES/RANDALL JULES MD Report: Spiral axial imaging [...] Primary Interpreting Staff: RANDALL JULES MD, Radiologist (Retail Brand Ambassador) /RANDALL BLANK [facility] Mar 25, 2024 07:[address] LUMBAR SPINE W/ O CONT: MERLE LAFLEUR [id number] -1990 M Exm Date: MAR 25, 2024@19:39 Req Phys: JESSICA PATTEN Loc: [facility]ERGENCY DEPT 3RD SHIFT (R Img Loc: [facility]-CT IMAGING [facility] Service: [address] [address] (Case [id number] COMPLETE) CT LUMBAR SPINE W/O CONT (CT Detailed) CPT:66276 Reason for Study: eval for fx/dislocation Clinical History: Responsible Attending: DR JESSICA PATTEN Attending Contact Number: [id number] Resident Contact Number: FELL while roller blading. [...] 25, 2024 Date Verified: MAR 25, 2024 Retail Brand Ambassador E-Sig: Report: CT THORACIC SPINE W/O CONT, [...] fracture fragments. READING PHYSICIAN: Caio Rollins MD -[id number] 03/25/2024 18:30 PDT [facility] National Teleradiology Program [phone] (For Medical Practitioner Use Only) Attention Patients / Veterans: If you have questions or concerns about these test results, please contact your ordering provider or primary care team. Primary Interpreting Staff: RADIOLOGY,OUTSIDE SERVICE, Staff Physician / RADIOLOGY,OUTSIDE SERVICE [facility] Mar 25, 2024 07:[address] THORACIC SPINE W/O CONT: MERLE LAFLEUR [id number] -1990 M Exm Date: MAR 25, 2024@19:39 Req Phys: JESSICA PATTEN Loc: [facility]ERGENCY DEPT 3RD SHIFT (R Img Loc: [facility]CT IMAGING [facility] Service: Unknown [facility], [facility] [address] [place] [address] (Case [id number] COMPLETE) CT THORACIC SPINE W/O CONT (CT Detailed) CPT:36121 Reason for Study: eval for fx/dislcoation Clinical History: Responsible Attending: dr jessica patten Attending Contact Number: [id number] Resident Contact Number: FELL while roller blading. [...] 25, 2024 Date Verified: MAR 25, 2024 Retail Brand Ambassador E-Sig: Report: CT THORACIC SPINE W/O CONT, [...] fracture fragments. READING PHYSICIAN: Caio Rollins MD -[id number] 03/25/2024 18:30 PDT [facility] National Teleradiology Program [phone] (For Medical Practitioner Use Only) Attention Patients / Veterans: If you have questions or concerns about these test results, please contact your ordering provider or primary care team. Primary Interpreting Staff: RADIOLOGY,OUTSIDE SERVICE, Staff Physician / RADIOLOGY,OUTSIDE SERVICE [facility] Pathology Reports: +/- 30 days of [...] comes from all [place] treatment facilities. Date/Time Pathology Report Provider Source Apr 21, 2024 11:44 AM LR SURGICAL PATHOL OGY REPORT: LOCAL TITLE: LR SURGICAL PATHOLOGY REPORT STANDARD TITLE: PATHOLOGY PROCEDURE NOTE DATE OF NOTE: APR 21, 2024@11:44:09 ENTRY DATE: APR 21, 2024@11:44:09 AUTHOR: CHLEI MORALES EXP COSIGNER: URGENCY: STATUS: COMPLETED $APHDR [...] - - - $TEXT Submitted by: JASWINDER SAH Date obtained: Apr 17, 2024 - - [...] seen, and no masses are grossly identified. National Investigative Producer sections of the wall from the body [...] Performing Laboratory: Surgical Pathology Report Performed By: [facility], [facility] [address] [facility]# [id number] [address] [place] [id number] $FTR - - - - - - [...] - - MERLE LAFLEUR STANDARD FORM 515 ID:[id number] SEX:M :1990 AGE: 34 LOC:APFEE PCP: Jaswinder Villafuerte MD /cydney/ CHELI MORALES Pathologist Signed: 04/21/2024 11:44 HCELI MORALES [facility] Encounter Notes: All associated encounter notes This section contains the clinical notes associated to the Encounter. Date/Time Encounter Note(s) Provider Source Apr 17, 2024 03:53 PM ANESTHESIOLOGY JEREMY WSHEET: LOCAL TITLE: ANES INTRA-OP FLOWSHEET ST STANDARD TITLE: ANESTHESIOLOGY FLOWSHEET DATE OF NOTE: APR 17, 2024@15:53 ENTRY DATE: APR 17, 2024@15:53:15 AUTHOR: KELI KULKARNI COSIGNER: URGENCY: STATUS: COMPLETED Patient: MERLE LAFLEUR SSN: [id number] Date of Operation: 04/17/2024 Surgery Start Time: 04/17/2024 13:21 Surgery End Time: 04/17/2024 15:32 Anesthesia Care Start: 04/17/2024 12:48 Anesthesia Care End: 04/17/2024 15:53 Anesthesia Method: General 04/17/2024 13:11 (Primary), Airway: [...] ROBOTIC ASSISTED CHOLECYSTECTOMY Diagnosis: INTRACTABLE BILIARY COLIC Holding, Anesthesia, PACU Drugs: ------ FentaNYL: 150 mcg Lidocaine: 100 mg Propofol: 200 mg Sugammadex: 300 mg Rocuronium: 140 mg HYDROmorphone: 0.6 mg Ondansetron: 4 mg ceFAZolin: 2 g Acetaminophen IVPB: 1 g Dexamethasone: 8 mg IC GREEN: 1 ml DexmedeTOMidine: 12 mcg Holding, Anesthesia, PACU Fluids: ------- Ringers Lactated Solution: 1400 ml Resources: Aquacel foam placed on danika prominence to protect skin during surgery Safety Belt Robot undocked Staff: --------- TIFFANY ARNETT, SURGEON TIFFANY ARNETT, ATT. SURGEON EMILY MONTEMAYOR, Holding Nurse NIMESH ANTONY PRIN. ANES. LIU, LUCIA Z, ANES. SUPER. BARNI, ANITA K, RELIEF HARNESS MAKER NAHID OTOOLE, Anesthesiologist Anesthesia Procedure: -- Procedure 04/17/2024 13:29 In Situ, Line Number: [...] Insertion: Atraumatic Removed without any adverse events. Procedure Date: 04/17/2024 Procedure Start Time: Procedure End Time: /cydney/ KELI KULKARNI MS ODD TICKET CLERK Signed: 04/17/2024 15:53 KELI KULKARNI [facility]
--- OUTSIDE RECORDS SUMMARY | 2025-01-15 07:41 | XMS_ITS | Encounter Summary ---
Author Name [facility] [facility] [place] Address [address] [place] [address] Care Team Providers Care Knit Goods Mender Name Role Phone BROOKLYN ARAGON Primary Care [...] FOCUS FAMIL Y Oct 08, [phone] [id number] [phone] REISING,T YLER PATIENT CAREMARK ([id number])RX PRESCRIPT ION GEHA Oct 04, 2024 [id number] [phone] REISING,T YLER PATIENT CAREMARK FEP [id number] PRESCRIPT ION FEPRX Aug 16, 2019 [id number] [phone] REISING,T YLER PATIENT GEHA PREFERRED PROVIDER ORGANIZAT ION (PPO) GEHA STAND EVELYN Oct 04, 2024 [id number] REISING,T YLER PATIENT Selected Encounter This section includes the information on record at [place] for the Encounter. Date/Time Encounter Type Encounter Description Reason Provider Source Aug 07, 2024 03:00 PM OFFICE O/P EST MOD 30 MIN PRIMARY CARE/MEDICINE ICD-10-CM Z09 Encntr for f/u exam aft trtmt for cond oth than MARK Sinah [facility] Encounter Template Text not used by [place] Assessments - Encounter Diagnoses This section includes the primary and secondary diagnoses documented for the Encounter. Date/Time Primary/Secondary Diagnosis Diagnosis Name Provider Source Aug 08, 2024 09:12 PM PRIMARY Encntr for f/u exam aft trtmt for cond oth than MARK Sinha [facility] Aug 08, 2024 09:12 PM SECONDARY Low back pain, unspecified ASMITA,MARK S [facility] Aug 08, 2024 09:12 PM SECONDARY Upper abdominal pain, unspecified ASMITA,[place] S [facility] Plan of Treatment: Future Appointments (+ 6 months) and Future Tests (+/- 45 days) The Plan of Treatment section includes [facility] care activities [facility] the [facility] [place] [facility]. This section includes future appointments [...] 07, 2024 04:15 PM AMBULATORY - MEDICINE [facility] Oct 10, 2024 05:20 AM AMBULATORY - MEDICINE [facility] Dec 24, 2024 08:30 AM AMBULATORY - REHAB MEDICIN [facility] Jan 08, 2025 07:30 AM AMBULATORY - NONE [facility] Jan 19, 2025 08:30 AM AMBULATORY - REHAB MEDICIN [facility] Active, Pending, and Scheduled Orders This section includes a listing of several types of active, pending, and scheduled orders, including clinic medications orders, diagnostic test orders, procedure orders and consult orders; where the start date of the order is 45 days before the date of the Encounter or 45 days after the date of theEncounter. The data comes from all [place] treatment facilities. Test Date/Time Test Type Test Details Facility Name Jun 29, 2024 12:00 AM Laboratory - Chemi stry Order VITAMIN D, 25-HYDROXY GOLD/RED SST SERUM SP [facility] Lab Results: +/- 30 days [...] Type Comment Jul 24, 2024 04:16 AM [facility] GLUCOSE,BLOOD-poct (STL) BLOOD Specimen Type: BLOOD Comment: Test Performed by: [id number] Meter #: [id number] Ordering Provider: LENNY WEBB Report Released Date/Time: Jul 24, 2024 04:27 AM Reporting Lab: [address] [address] Performing Lab: [place] [address] [facility] [address] GLUCOSE,BLOOD-poct (STL) 84 mg/dL 72-99 Jul 17, 2024 03:46 PM [facility] URINALYSIS (L-PB) URINE Specimen Type: URIN E No comment entered. Ordering Provider: KHLOE HOLT Report Released Date/Time: Jul 17, 2024 01:35 PM Reporting Lab: [place] [address] [facility] [address] Performing Lab: [place] [address] [facility] [address] URINE COLOR Light-Yellow Yellow U.BILIRUBIN Negative mg/dL [...] 1.049 H Jul 17, 2024 01:37 PM [facility] LIPASE PLASMA Specimen Type: PLASM A Comment: No hemolysis noted. Ordering Provider: KHLOE HOLT Report Released Date/Time: Jul 17, 2024 01:35 PM Reporting Lab: [place] [address] [facility] [address] Performing Lab: [address] [address] LIPASE 27 U/L 8-78 Jul 17, 2024 01:37 PM [facility] COMPREHENSIVE METABOLIC PANEL PLASMA Specimen Type: PLASMA Comment: No hemolysis noted. Ordering Provider: KHLOE HOLT Report Released Date/Time: Jul 17, 2024 01:35 PM Reporting Lab: [place] [address] [facility] [address] Performing Lab: [place] [address] [facility] [address] CREATININE 1.39 mg/dL H 0.7-1.3 UREA NITROGEN [...] 67.8 >60 Jul 17, 2024 01:37 PM [facility] CBC BLOOD Specimen Type: BLOOD No comment entered. Ordering Provider: KHLOE HOLT Report Released Date/Time: Jul 17, 2024 01:35 PM Reporting Lab: [facility] [address] [facility] [address] Performing Lab: [facility] [address] [facility] [address] WBC 6.2 10*3/uL 3.6-11.2 RBC 5.64 10*6/uL [...] Pain Height Weight Body Mass Index Source Aug 07, 2024 03:10 PM 98.5 95 115/73 [address] 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 Tobacco Use History This section includes a history of the smoking, or tobacco-related health factors, that were collected on or before the date of the Encounter. The data comes from the [place] facility where the Encounter took place. Date/Time Smoking Status/Tobacco Use Comment F acility Apr 18, 2022 11:00 AM [place]-TOBACCO QUIT 1 TO < [address] [facility] Advance Directives: All historical and current [...] DIRECTIVE NO TIFICATION AND SCREENING SYLWIA SANTIAGO [facility] May 14, 2023 ADVANCE DIRECTIVE NO TIFICATION AND SCREENING SYLWIA SANTIAGO [facility] Radiology Reports: +/- 30 days of [...] PM CT ABD PEL W/CONT & 3D: CIARRAMERLE [id number] -1990 M Exm Date: JUL 17, 2024@15:02 Req Phys: KHLOE HOLT Loc: [facility]Y [facility]PT 2ND SHIFT (R Img Loc: [facility] Service: Unknown [facility], [facility] [address] [place] [address] (Case [id number] COMPLETE) CT ABDOMEN AND PELVIS W/CONTRAST (CT Detailed) CPT:75393 Contrast Media : Non-ionic Iodinated Reason for Study: RUQ pain Clinical History: Responsible Attending: Yoni Attending Contact Number: [id number] Resident Contact Number: Recent lap ying now [...] 17, 2024 Date Verified: JUL 17, 2024 Casino Banker E-Sig:/ES/BELIA CHRISTINE Report: Case [id number]. CT ABDOMEN AND PELVIS W/CONTRAST. Gastrointestinal contrast: [...] dilation. Primary Interpreting Staff: BELIA CHRISTINE MD (Casino Banker) /BELIA [facility] Encounter Notes: All associated encounter notes This section contains the clinical notes associated to the Encounter. Date/Time Encounter Note(s) Provider Source Aug 07, 2024 03:21 PM PRIMARY CARE NOTE: LOCAL TITLE: PRIMARY CARE PROVIDER ESTABLISHED VISIT ST STANDARD TITLE: PRIMARY CARE NOTE DATE OF NOTE: AUG 07, 2024@15:21 ENTRY DATE: AUG 07, 2024@15:21:49 AUTHOR: MARK TIAN COSIGNER: URGENCY: STATUS: COMPLETED ESTABLISHED PATIENT VUEA-[id number]-[id number]: REASON FOR VISIT/CHIEF COMPLAINT: hospital follow up, back pain f/u HPI: 34 year old MALE presents today for f/u of 07/28 ER visit in [place] for abd pain while on vacation. He was then transported 45 min away via ambulance to [facility] in [facility]. He was found to have a gallstone obstruction. Procedure diagnosis from via endoscopic retrograde cholangiopancreatography - endo with a sphincterotomy, balloon sweeps, biopsies and stent placement from Brian ADAN, Malcolm Williamson surgeon. # Hx of cholecystectomy and abd pain Pt had a recent cholecystecomy a few months ago at and has been having abdominal pain and has been to the ED 5 times in the last mo over a 12 day span. He went to 2 times, 2 times to [facility] and the one in [place] for abd pain prior to 07/28 [place] ER visit. Oct 07 is when he is scheduled to have the stent removed with: Dr. Malcolm Torres at [facility] [address] [place] [address] # Back Pain Chronic back pain exacerbated following a fall and subsequent L2 and L3 compression fractures March 25 while rollerblading. Since the fall reports improvement with pain. Imaging: Minimal increased compression at L3 as described. The deformity at L2 is stable. L-MRI shows multilevel degenerative disc and facet disease. No severe canal stenosis. There are multiple levels of varying foraminal stenosis due to disc bulg, facet and ligamentum flavum hypertrophy. Since original CT there was no significant progression of L2 and L3 compression fractures. - Vet has seen [place] neurosurgery and now needs a referral to [place] pain management per neurosurgery recs SOURCE(S) OF HISTORY: Patient WHAT IS YOUR GOAL FOR TODAY? as above SOURCE(S) OF HISTORY: Patient PAST MEDICAL HISTORY: [...] rhinitis 18) Vitamin D deficiency 19) Anxiety ALLERGIES: Life Sustaining Treatment Orders ALLERGY REVIEW: Allergy list reviewed and remains current. 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 Handwritten corrections, additions and/or deletions were made to the list. Corrected Outpatient Medication List was provided to the patient/caregiver. DATA REVIEW: SODIUM 142 mEq/L 07/17/2024 13:37 POTASSIUM 3.8 mEq/L 07/17/2024 13:37 CHLORIDE 107 mEq/L 07/17/2024 13:37 UREA NITROGEN 12.6 mg/dL 07/17/2024 13:37 CREATININE 1.39 H mg/dL 07/17/2024 13:37 CALCIUM 9.6 mg/dL 07/17/2024 13:37 PROTEIN 7.0 g/dL 07/17/2024 13:37 ALBUMIN 4.4 g/dL 07/17/2024 13:37 ALKALINE PHOSPHATASE 78 U/L 07/17/2024 13:37 ALT/SGPT 15 U/L 07/17/2024 13:37 AST/SGOT 13 U/L 07/17/2024 13:37 TOTAL BILIRUBIN 0.7 mg/dL 07/17/2024 13:37 CARBON DIOXIDE 26 mEq/L 07/17/2024 13:37 GLUCOSE 84 mg/dL 07/17/2024 13:37 EGFR (CKD-EPI 2020) 67.8 07/17/2024 13:37 WBC 6.2 10*3/uL 07/17/2024 13:37 RBC 5.64 10*6/uL 07/17/2024 13:37 HGB 16.1 g/dL 07/17/2024 13:37 HCT 46.8 % 07/17/2024 13:37 MCV 83.0 fL 07/17/2024 13:37 MCH 28.5 pg 07/17/2024 13:37 MCHC 34.4 g/dL 07/17/2024 13:37 RDW 13.0 % 07/17/2024 13:37 PLT 201 10*3/uL 07/17/2024 13:37 MPV 9.4 fL 07/17/2024 13:37 NEUTROPHILS, AUTO % 59 % 07/17/2024 13:37 LYMPHOCYTES, AUTO % 29 % 07/17/2024 13:37 MONOCYTES, AUTO % 7 % 07/17/2024 13:37 EOSINOPHILS, AUTO % 4 % 07/17/2024 13:37 BASOPHILS, AUTO % 1 % 07/17/2024 13:37 NEUTROPHILS, ABSOLUTE 3.67 10*3/uL 07/17/2024 13:37 LYMPHOCYTES, ABSOLUTE 1.82 10*3/uL 07/17/2024 13:37 MONOCYTES, ABSOLUTE 0.46 10*3/uL 07/17/2024 13:37 EOSINOPHILS, ABSOLUTE 0.22 10*3/uL 07/17/2024 13:37 BASOPHILS, ABSOLUTE 0.05 10*3/uL 07/17/2024 13:37 TRIGLYCERIDE 220 H mg/dL 03/01/2024 21:06 CHOLESTEROL 174 mg/dL 03/01/2024 21:06 HDL(New) 32 L mg/dL 03/01/2024 21:06 CALCULATED LDL 98 mg/dL 03/01/2024 21:06 No TSH (1YR) EO data found VITAMIN D, 25-HYDROXY 21.4 L ng/mL 01/01/2023 10:25 SLT - Lab Tests Selected Collection DT Specimen Test Name Result Units Ref Range 03/01/2024 21:06 BLOOD HGA1C 5.3 % 4.0 - 6.0 01/01/2023 10:25 BLOOD HGA1C 5.4 % 4.0 - 6.0 03/02/2022 12:18 BLOOD HGA1C 5.4 % 4.0 - 6.0 No PSA EO data found HbA1c No data available for: HGA1C Result: Acceptable Follow-up Action: Data results reviewed with patient and/or caregiver. 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: Denies frequency, urgency, burning, odor, discharge Hemo/lymph: Denies easy bruising, fatigue, swollen nodes Endo: Denies excess thirst, hunger, urination Psych: Denies depression, anxiety, nightmares, insomnia Neuro: Denies headaches, tremors, seizures, head injury, neuropathy Skin: Denies laceration/abrasion, rash, itching, insect bites VSD - Detailed Vitals Date Vital Measurement Qualifiers 08/07/2024 15:10 Temp F (C) 98.5 (36.9) Pulse 95 Respir 16 BP 115/73 Wt lbs (kg)[BMI] 242.4 (109.95)[31*] Pain 0 POx (L/Min)(%) 98 05/15/2024 09:54 Ht in (cm) 74 (187.96) Physical Exam: ENT: Pharynx clear, TM's clear EYE: PERRLA Cardiovascular: RRR, no murmurs, no carotid bruits, no edema Respiratory: Lungs CTAB Abd/GI: Abdomen soft, non-tender, non-distended, no masses or guarding Extremities: adequate ROM, no edema, + back pain /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 - He went to 2 times, 2 times to [facility] and the one in [place] for abd pain. - He was found to have a gallstone obstruction while vacationing in [place] Procedure diagnosis from 07/26/2024 via endoscopic retrograde cholangiopancreatography - endo with a sphincterotomy, balloon sweeps, biopsies and stent placement from Brian ADAN, Malcolm P surgeon. - Oct 07 is when he is scheduled to have the stent removed with: Dr. Malcolm Torres at [facility] [address] [place] [address] - pt doing well now - CC referral placed for above GI provider for stent removal # Pain - Chronic back pain exacerbated following a fall and subsequent L2 and L3 compression fractures March 25 while rollerblading. - Since the fall reports improvement with pain. Imaging: Minimal increased compression at L3 as described. The deformity at L2 is stable. L-MRI shows multilevel degenerative disc and facet disease. No severe canal stenosis. There are multiple levels of varying foraminal stenosis due to disc bulg, facet and ligamentum flavum hypertrophy. Since original CT there was no significant progression of L2 and L3 compression fractures. - Vet has seen [place] neurosurgery and now needs a referral to [place] pain management per neurosurgery recs - Referral to pain management #[facility]: has upcoming GI appt for eval of abd pain PSA: PROST. SPECIFIC AG.(PB-STL) 1.413 ng/mL 03/02/2022 12:18 Immunizations: Immunization Series Date Facility Reaction Info HEP A, ADULT 06/01/2019 [facility]* HEP A, ADULT 04/09/2013 [facility]* HEP A, ADULT 12/11/2012 [facility]* HEP A, ADULT 06/03/2012 No Site HEP B, ADULT 04/09/2013 [facility]* HEP B, ADULT 12/11/2012 [facility]* INFLUENZA, INJECTABLE, QUADRIVAL* 06/21/2021 [facility]* INFLUENZA, INJECTABLE, QUADRIVAL* 08/04/2019 [facility]* INFLUENZA, UNSPECIFIED FORMULATI* Guard unit MMR 06/18/2017 [facility]* MMR 12/06/1995 [facility]* TDAP 04/30/2012 [facility]* ZOSTER LIVE 06/18/2017 [facility]* ZOSTER LIVE 10/26/2003 [facility]* ZOSTER LIVE 06/22/2003 [facility]* RETURN TO CLINIC: 8 months or PRN, pt to call office if needs sooner appt. SUMMARY STATEMENT: Plan of care has been discussed with including expected therapeutic benefits and potential side effects of prescribed medication and treatments. [place] verbalizes understanding and is in agreement with the plan of care. Patient was instructed to keep all scheduled appointments and contact tar kettle runner for any additional problems. /es/ MARK TIAN NURSE PRACTITIONER Signed: 08/08/2024 21:[address] [facility] Aug 07, 2024 03:11 PM NURSING NOTE: LOCAL TITLE: V15 PACT FACE TO FACE NOTE ST STANDARD TITLE: NURSING NOTE DATE OF NOTE: AUG 07, 2024@15:11 ENTRY DATE: AUG 07, 2024@15:11:16 AUTHOR: CHILO HEWITTIGNER: URGENCY: STATUS: COMPLETED Provider Visit: Patient Identifiers : Full Name Date of Reason for visit: Established Follow-Up Mode of Arrival: Ambulatory Allergy Review: Patient has answered NKA Allergy list reviewed and remains current. Recent Vital Signs: Temperature: 98.5 F [36.9 C] (08/07/2024 15:10) Pulse: 95 (08/07/2024 15:10) Respiration: 16 (08/07/2024 15:10) B/P: 115/73 (08/07/2024 15:10) Pain: 0 (08/07/2024 15:10) Wt: 242.4 lb [109.95 kg] (08/07/2024 15:10) Ht: 74 in [188.0 cm] (05/15/2024 09:54) BMI: 31.2 POX: 98% (08/07/2024 15:10) Would you like to discuss any personal problem, family problem, alcohol use, drug use, or a mental or emotional illness? No Contact provided Primary Care phone number and encouraged to call if any questions or concerns. Review that after hours nurse line [phone] and emergency room are available 15/04 for patient use. Contact verbalized good understanding. Learning Assessment: - * This patient's learning ABILITIES, BARRIERS to learning, CULTURAL and BUDDHIST beliefs, and learning PREFERENCES were assessed. Following are findings of note: Patient reads well. Patient has the following hearing/auditory barrier(s) to consider when teaching: No hearing barrier identified. Patient has the following speech barrier to consider when teaching: No speech barrier identified. LANGUAGE Patient reports that P[place] is preferred language for healthcare. Patient has the following language barrier to consider when teaching: No language barrier has been identified. Patient has the following vision barrier(s) to consider when teaching: The following barrier has been identified:, Requires glasses/contacts for reading Adjustments made to address the identified barrier include: Assure patient has glasses/contacts for reading. Patient has the following dexterity/mobility barrier(s) to consider when teaching: No dexterity/mobility barrier has been identified. Patient has the following cognitive/memory barrier(s) to consider when teaching: No cognitive/memory barrier has been identified. Patient has the following emotional/psychological barrier(s) to consider when teaching: No emotional/psychosocial barrier has been identified. Patient has the following social support deficit(s) to consider when teaching: No social support issues have been identified. Patient reports learning preference is to refer to handouts. Patient reports learning preference is attending one-to-one or group demonstrations. Influenza Immunization - L,N,P,PH,U: Deferral / Refusal The patient declines to receive the recommended dose of seasonal influenza vaccine. Immunization: INFLUENZA, UNSPECIFIED FORMULATION Refusal Reason: PATIENT DECISION Patient refuses all immunization(s) in the FLU group Date Documented: 08/07/24 15:13 Pneumococcal Conjugate Vaccine (PCV15/PCV20) - L,N,P,PH,U: Refuses PCV vaccine Immunization: PNEUMOCOCCAL CONJUGATE, UNSPECIFIED FORMULATION Refusal Reason: PATIENT DECISION Patient refuses all immunization(s) in the PneumoPCV group Date Documented: 08/07/24 15:13 COVID-19 Immunization - L,N,P,PH,U: Refused Pfizer Monovalent COVID-19 vaccine Immunization: COVID-19 (PFIZER), MRNA, LNP-S, PF, HUSSAIN-SUCROSE, 30 MCG/0.3 ML (AGES 12+ YEARS) Refusal Reason: PATIENT DECISION Patient refuses all immunization(s) in the COVID-19 group Date Documented: 08/07/24 15:13 [facility] - [facility] MAP: PERSONAL HEALTH PLAN INVENTORY & MAP [place]'s Response: family SHARED GOALS resolve health issues /es/ CHILO HEWITT LPN LICENSED PRACTICAL NURSE Signed: 08/07/2024 15:[address] [facility]
--- OUTSIDE RECORDS SUMMARY | 2025-01-15 07:41 | XMS_ITS ---
Author Name [facility] [place] [facility] [place] Address [address] [place] [address] Care Team Providers Care Quarantine Officer Name Role Phone BROOKLYN ARAGON Primary Care [...] FOCUS FAMIL Y Oct 08, 2021 132 [id number] [phone] REISING,T YLER PATIENT CAREMARK ([id number])RX PRESCRIPT ION GEHA Oct 04, 2024 [id number] [phone] REISING,T YLER PATIENT CAREMARK FEP [id number] PRESCRIPT ION FEPRX Aug 16, 2019 [id number] [phone] REISING,T YLER PATIENT GEHA PREFERRED PROVIDER ORGANIZAT ION (PPO) GEHA STAND EVELYN Oct 04, 2024 [id number] REISING,T YLER PATIENT Selected Encounter This section includes the information on record at [place] for the Encounter. Date/Time Encounter Type Encounter Description Reason Provider Source Jul 24, 2024 04:14 AM EMERGENCY DEPT VISIT LOW [facility] EMERGENCY DEPT ICD-10-CM R42 Dizziness and giddiness LENNY WEBB Karen Encounter Template Text not used by [place] Assessments - Encounter Diagnoses This section includes the primary and secondary diagnoses documented for the Encounter. Date/Time Primary/Secondary Diagnosis Diagnosis Name Provider Source Jul 24, 2024 04:26 AM PRIMARY Dizziness and giddiness KAITLYNN FERRELL [facility] Plan of Treatment: Future Appointments (+ 6 months) and Future Tests (+/- 45 days) The Plan of Treatment section includes future care activities for the patient from all [place] [facility] [place] This section includes future appointments and future orders which are active, pending or scheduled. Future Appointments This section includes appointments that were scheduled to occur 6 months from the date of the Encounter, up to a maximum of 20 appointments. The data comes from all [facility]. Appointment Date/Time Appointment Type Appointme nt Facility Name Aug 07, 2024 03:00 PM AMBULATORY - MEDICINE [facility] Oct 07, 2024 04:15 PM AMBULATORY - MEDICINE [facility] Oct 10, 2024 05:20 AM AMBULATORY - MEDICINE [facility] Dec 24, 2024 08:30 AM AMBULATORY - REHAB MEDICIN [facility] Jan 08, 2025 07:30 AM AMBULATORY - NONE [facility] Jan 19, 2025 08:30 AM AMBULATORY - REHAB MEDICIN [facility] Active, Pending, and Scheduled Orders This section includes a listing of several types of active, pending, and scheduled orders, including clinic medications orders, diagnostic test orders, procedure orders and consult orders; where the start date of the order is 45 days before the date of the Encounter or 45 days after the date of theEncounter. The data comes from all [facility]. Test Date/Time Test Type Test Details Facility Name Jun 29, 2024 12:00 AM Laboratory - Chemi stry Order VITAMIN D, 25-HYDROXY GOLD/RED SST SERUM SP [facility] Lab Results: +/- 30 days [...] Type Comment Jul 24, 2024 04:16 AM [facility] GLUCOSE,BLOOD-poct (STL) BLOOD Specimen Type: BLOOD Comment: Test Performed by: [id number] Meter #: [id number] Ordering Provider: LENNY WEBB Report Released Date/Time: Jul 24, 2024 04:27 AM Reporting Lab: [place] [address] [facility] [address] Performing Lab: [place] [phone] GLUCOSE,BLOOD-poct (L) 84 mg/dL 72-99 Jul 17, 2024 03:46 PM [facility] URINALYSIS (L-PB) URINE Specimen Type: URIN E No comment entered. Ordering Provider: KHLOE HOLT Report Released Date/Time: Jul 17, 2024 01:35 PM Reporting Lab: [place] [address] [facility] [address] Performing Lab: [place] [address] [facility] [address] URINE COLOR Light-Yellow Yellow U.BILIRUBIN Negative mg/dL [...] 1.049 H Jul 17, 2024 01:37 PM [facility] COMPREHENSIVE METABOLIC PANEL PLASMA Specimen Type: PLASMA Comment: No hemolysis noted. Ordering Provider: KHLOE HOLT Report Released Date/Time: Jul 17, 2024 01:35 PM Reporting Lab: [address] [address] Performing Lab: [address] [phone] CREATININE 1.39 mg/dL H 0.7-1.3 UREA NITROGEN [...] 67.8 >60 Jul 17, 2024 01:37 PM [facility] LIPASE PLASMA Specimen Type: PLASM A Comment: No hemolysis noted. Ordering Provider: KHLOE HOLT Report Released Date/Time: Jul 17, 2024 01:35 PM Reporting Lab: [facility] [address] [place] [phone] Performing Lab: [address] [address] LIPASE 27 U/L 8-78 Jul 17, 2024 01:37 PM [facility] CBC BLOOD Specimen Type: BLOOD No comment entered. Ordering Provider: KHLOE HOLT Report Released Date/Time: Jul 17, 2024 01:35 PM Reporting Lab: [address] [address] Performing Lab: [address] [address] WBC 6.2 10*3/uL 3.6-11.2 RBC 5.64 10*6/uL [...] Pain Height Weight Body Mass Index Source Jul 24, 2024 04:13 AM 97.6 71 136/83 18 0 [facility] Social History: Smoking Status (Most current) and Tobacco Use (All prior to encounter date) This section includes the most current, and the historical, smoking and tobacco- related health factors from the [place] facility where the Encounter took place. Current Smoking Status This section includes the most current smoking, or tobacco-related health factor, from the [place] facility where the Encounter took place. Date/Time Current Smoking Status Comment Facil ity Jan 08, 2024 04:16 PM PA-TOBACCO QUIT 15 YRS OR MORE [facility] Tobacco Use History This section includes a history of the smoking, or tobacco-related health factors, that were collected on or before the date of the Encounter. The data comes from the [place] facility where the Encounter took place. Date/Time Smoking Status/Tobacco Use Comment F acility Jan 08, 2024 04:16 PM PA-TOBACCO QUIT 15 YRS OR MORE [facility] Dec 18, 2023 09:41 AM VA-TOBACCO FORMER USER [facility] Dec 18, 2023 09:41 AM PA-TOBACCO QUIT 1 TO < 5 YRS [facility] Advance Directives: All historical and current Section Date Range: From patient's date of to the date document was created. This section includes ALL of a patient's completed or amended [place] Advance and Rescinded Directives. The entries below indicate that a directive exists for the patient, but an actual copy is not included with this document. The data comes from all [place] facilities. Date Advance Directives Provider Source Aug 28, 2023 ADVANCE DIRECTIVE NO TIFICATION AND SCREENING SYLWIA SANTIAGO [facility] May 14, 2023 ADVANCE DIRECTIVE NO TIFICATION AND SCREENING SYLWIA SANTIAGO [facility] Radiology Reports: +/- 30 days of [...] the Encounter. The data comes from all [place] treatment facilities. Date/Time Radiology Report Provider Source Jul 17, 2024 03:[address] ABD PEL W/CONT & 3D: MERLE LAFLEUR [id number] -1990 M Exm Date: JUL 17, 2024@15:02 Req Phys: KHLOE HOLT Loc: [facility]-EMERGENCY DEPT 2ND SHIFT (R Img Loc: [facility]CT IMAGING Service: [facility], [facility] [address] [place] [address] (Case [id number] COMPLETE) CT ABDOMEN AND PELVIS W/CONTRAST (CT Detailed) CPT:13716 Contrast Media : Non-ionic Iodinated Reason for Study: RUQ pain Clinical History: Responsible Attending: Yoni Attending Contact Number: [id number] Resident Contact Number: Recent lap ying now [...] 17, 2024 Date Verified: JUL 17, 2024 Hair Worker E-Sig:/ES/BELIA CHRISTINE Report: Case [id number]. CT ABDOMEN AND PELVIS W/CONTRAST. Gastrointestinal contrast: [...] dilation. Primary Interpreting Staff: BELIA CHRISTINE MD (Hair Worker) /BELIA MATHEW [facility] Encounter Notes: All associated encounter notes This section contains the clinical notes associated to the Encounter. Date/Time Encounter Note(s) Provider Source Jul 24, 2024 04:20 AM EMERGENCY DEPT TRI AGE NOTE: LOCAL TITLE: EMERGENCY DEPARTMENT TRIAGE NOTE STANDARD TITLE: EMERGENCY DEPT TRIAGE NOTE DATE OF NOTE: JUL 24, 2024@04:20 ENTRY DATE: JUL 24, 2024@04:20:25 AUTHOR: LOLI PINK COSIGNER: URGENCY: STATUS: COMPLETED Emergency Department/Urgent Care Center Triage Patient age:34 Sex in chart: MALE Mode of Arrival: Self Mode of Mobility: * Walk Chief Complaint: Requesting Blood Sugar check assistant at surgery Note (Subjective/Objective): Pt is a [employer] at this facility and is requesting a blood sugar check. States he has been feeling dizzy and hasn't been eating. Is concerned that his blood sugar may be low. Accucheck 84mg/dL. Pt does not wish to be seen as er pt as he has been seen here and at another hospital recently. Denies pain or other complaints. Level of Consciousness (AVPU): Alert = Appears aware of and responsive to the environment on their own. Follows commands, opens eyes spontaneously, and tracks objects. Vital Signs: Temperature 97.6 F (36.4 C) Pulse 71 Respirations 18 Blood Pressure 136/83 Pulse Oximetry 97 Room Air Pain: No pain Pain Score: 0 Suicide Screen: [place] Suicide Severity Rating Scale (C-SSRS) screener 1. [...] questions. Emergency Severity Index (NIRMAL) level: Level 5 Previously documented allergies: Patient has answered NKA [...] /es/ LOLI PINK RN REGISTERED NURSE Signed: 07/24/2024 04:24 LOLI PINK [facility]
--- OUTSIDE RECORDS SUMMARY | 2025-01-15 07:41 | XMS_ITS | Encounter Summary ---
Author Name [facility] [facility] [place] [facility] [place] Address [address] [place] [address] Care Team Providers Care It Business Systems Analyst Name Role Phone BROOKLYN ARAGON Primary [...] FOCUS FAMIL Y Oct 08, 2021 [id number] [phone] REISING,T YLER PATIENT CAREMARK ([id number])RX PRESCRIPT ION GEHA Oct 04, 2024 [id number] [phone] REISING,T YLER PATIENT CAREMARK FEP [id number] PRESCRIPT ION FEPRX Aug 16, 2019 [id number] [phone] REISING,T YLER PATIENT GEHA PREFERRED PROVIDER ORGANIZAT ION (PPO) GEHA STAND EVELYN Oct 04, 2024 [id number] REISING,T YLER PATIENT Selected Encounter This section includes the information on record at [place] for the Encounter. Date/Time Encounter Type Encounter Description Reason Provider Source Mar 30, 2024 05:50 PM Outpatient Encounter [facility] ICD-10-CM M54.51 Vertebrogenic low back pain ARIEL CULLEN IHE Encounter Template Text not used by [place] Assessments - Encounter Diagnoses This section includes the primary and secondary diagnoses documented for the Encounter. Date/Time Primary/Secondary Diagnosis Diagnosis Name Provider Source Mar 30, 2024 05:57 PM PRIMARY Vertebrogenic low back pain ARIEL CULLEN [facility] Plan of Treatment: Future Appointments (+ 6 months) and Future Tests (+/- 45 days) The Plan of Treatment section includes future care activities for the patient from all [place] [facility] This section includes future appointments and [...] 08, 2024 02:00 PM AMBULATORY - PSYCHIATRY [facility] Apr 16, 2024 03:06 AM AMBULATORY - MEDICINE [facility] Apr 16, 2024 08:30 AM AMBULATORY - SURGERY [facility] Apr 22, 2024 02:00 PM AMBULATORY - PSYCHIATRY [facility] Apr 22, 2024 03:30 PM AMBULATORY - MEDICINE [facility] Apr 27, 2024 02:45 PM AMBULATORY - SURGERY [facility] May 01, 2024 11:00 AM AM[facility]ULATORY - NONE [facility] May 15, 2024 09:30 AM AMBULATORY - SURGERY [facility] May 20, 2024 03:30 PM [facility]ULATORY - NONE [facility] May 28, 2024 02:00 PM AMBULATORY - PSYCHIATRY [facility] Jun 03, 2024 11:30 AM AMBULATORY - SURGERY [facility] Jun 11, 2024 01:00 PM AMBULATORY - PSYCHIATRY [facility] Jun 29, 2024 03:00 PM [facility]ULATORY - NONE [facility] Jul 17, 2024 01:24 PM AMBULATORY - MEDICINE [facility] Jul 22, 2024 10:30 AM AMBULATORY - MEDICINE [facility] Jul 24, 2024 04:14 AM AMBULATORY - MEDICINE [facility] Aug 07, 2024 03:00 PM AMBULATORY MEDICINE [facility] Active, Pending, and Scheduled [...] Chemistry Order CBC (DIFF&PLT) BLOOD SP [facility] Mar 06, 2024 12:00 AM Laboratory - Chemistry Order COMPREHENSIVE METABOLIC PANEL BLOOD PLASMA [facility] Mar 06, 2024 12:00 AM Laboratory - Chemistry Order URINALYSIS URINE [facility] Mar 06, 2024 12:00 AM Laboratory - Chemistry Order LIPID PANEL BLOOD PLASMA [facility] Mar 06, 2024 12:00 AM Laboratory - Chemistry Order TSH-G,LC,J,T BLOOD PLASMA [facility] Mar 06, 2024 12:00 AM Laboratory - Chemistry Order HEMOGLOBIN %A1C PROFILE BLOOD SP [facility] Mar 06, 2024 12:00 AM Laboratory - Chemistry Order MICROALBUMINURIA(IVONNE) URINE SP [facility] Apr 16, 2024 11:39 AM Laboratory - Chemistry Order MRSA SURVL NARES DNA NARES [facility] Apr 18, 2024 09:38 AM Laboratory - Chemistry Order MRSA SURVL NARES DNA NARES [facility] Lab Results: +/- 30 days [...] Type Comment Apr 17, 2024 08:49 PM [facility] BASIC METABOLIC PANEL PLASMA Specimen Type: PLASMA Comment: No hemolysis noted. Ordering Provider: JAKUB DOAN V Report Released Date/Time: Apr 16, 2024 04:01 PM Reporting Lab: [facility] [address] [place] [phone] Performing Lab: [address] [address] CREATININE 1.22 mg/dL 0.7-1.3 UREA NITROGEN 12.4 mg/dL 9.0-25.0 GLUCOSE 131 mg/dL H 72-99 SODIUM 139 meq/L 136-145 POTASSIUM 4.6 meq/L 3.5-5 CHLORIDE 105 meq/L 98-107 CARBON DIOXIDE 23 meq/L 22-31 CALCIUM 9.2 mg/dL 8.4-10.4 EGFR (CKD-EPI 2020) 79.3 >60 Apr 17, 2024 08:49 PM [facility] CBC BLOOD Specimen Type: BLOOD No comment entered. Ordering Provider: JAKUB DOAN V Report Released Date/Time: Apr 16, 2024 04:01 PM Reporting Lab: [address] [address] Performing Lab: [address] [address] WBC 11.4 10*3/uL H 3.6-11.2 RBC 5.43 [...] 0.00-0. 20 Apr 16, 2024 08:18 PM [facility] BASIC METABOLIC PANEL PLASMA Specimen Type: PL ASMA Comment: No hemolysis noted. Ordering Provider: JAKUB DOAN V Report Released Date/Time: Apr 16, 2024 04:01 PM Reporting Lab: [facility] [address] [facility] [address] Performing Lab: [address] [address] CREATININE 1.21 mg/dL 0.7-1.3 UREA NITROGEN 11.5 mg/dL 9.0-25.0 GLUCOSE 99 mg/dL 72-99 SODIUM 141 meq/L 136-145 POTASSIUM 3.8 meq/L 3.5-5 CHLORIDE 105 meq/L 98-107 CARBON DIOXIDE 25 meq/L 22-31 CALCIUM 9.2 mg/dL 8.4-10.4 EGFR (CKD-EPI 2020) 80.1 >60 Apr 16, 2024 08:18 PM [facility] APTT PLASMA Specimen Type: PLASM A No comment entered. Ordering Provider: JAKUB DOAN V Report Released Date/Time: Apr 16, 2024 04:02 PM Reporting Lab: [address] [address] Performing Lab: [facility] [address] [place] [phone] APTT 28.9 s 26.7-39.9 Apr 16, 2024 08:18 PM [facility] PT/INR NEW (STL-MA) PLASMA Specimen Type: PLAS MA No comment entered. Ordering Provider: JAKUB DOAN V Report Released Date/Time: Apr 16, 2024 04:02 PM Reporting Lab: [address] [address] Performing Lab: [address] [place] [address] PROTIME 12.3 s 9.4-12.5 INR VALUE 1.1 {INR} Apr 16, 2024 08:18 PM [facility] CBC BLOOD Specimen Type: BLOOD No comment entered. Ordering Provider: JAKUB DOAN V Report Released Date/Time: Apr 16, 2024 04:01 PM Reporting Lab: [address] [address] Performing Lab: [address] [address] WBC 6.8 10*3/uL 3.6-11.2 RBC 5.13 10*6/uL [...] 0.00-0. 20 Apr 16, 2024 03:25 AM [facility] LIPASE PLASMA Specimen Type: PLASM A Comment: No hemolysis noted. Ordering Provider: ADINA WALTON Report Released Date/Time: Apr 16, 2024 03:23 AM Reporting Lab: [place] [address] [facility] [address] Performing Lab: [address] [address] LIPASE 36 U/L 8-78 Apr 16, 2024 03:25 AM [facility] GGT GAMMA-GT PLASMA Specimen Type: PLASM A Comment: No hemolysis noted. Ordering Provider: ADINA WALTON Report Released Date/Time: Apr 16, 2024 03:23 AM Reporting Lab: [facility] [address] [place] [address] Performing Lab: [address] [address] GGT GAMMA-GT 25 [IU]/L 12-64 Apr 16, 2024 03:25 AM [facility] COMPREHENSIVE METABOLIC PANEL PLASMA Specimen Type: PLASMA Comment: No hemolysis noted. Ordering Provider: ADINA WALTON Report Released Date/Time: Apr 16, 2024 03:23 AM Reporting Lab: [address] [address] Performing Lab: [address] [address] CREATININE 1.42 mg/dL H 0.7-1.3 UREA NITROGEN [...] 66.1 >60 Apr 16, 2024 03:25 AM [facility] CBC BLOOD Specimen Type: BLOOD No comment entered. Ordering Provider: ADINA WALTON Report Released Date/Time: Apr 16, 2024 03:23 AM Reporting Lab: [address] [address] Performing Lab: [place] [address] [facility] [address] WBC 8.8 10*3/uL 3.6-11.2 RBC 5.41 10*6/uL [...] 0.00-0. 20 Mar 01, 2024 09:06 PM [facility] HGA1C BLOOD Specimen Type: BLOOD No comment entered. Ordering Provider: ROYA CARTAGENA Report Released Date/Time: Feb 24, 2024 04:42 PM Reporting Lab: [address] [address] Performing Lab: [address] [address] HGA1C 5.3 4.0-6.0 Mar 01, 2024 09:06 PM [facility] LIPID PANEL (STL) PLASMA Specimen Type: PLASM A Comment: No hemolysis noted. Ordering Provider: ROYA CARTAGENA Report Released Date/Time: Feb 24, 2024 04:42 PM Reporting Lab: [address] [address] Performing Lab: [address] [address] CHOLESTEROL 174 mg/dL 0-200 TRIGLYCERIDE 220 mg/dL H 0-150 CALCULATED LDL 98 mg/dL HDL(New) 32 mg/dL L >40 Mar 01, 2024 09:06 PM [facility] COMPREHENSIVE METABOLIC PANEL PLASMA Specimen Type: PLASMA Comment: No hemolysis noted. Ordering Provider: ROYA CARTAGENA Report Released Date/Time: Feb 24, 2024 04:42 PM Reporting Lab: [address] [address] Performing Lab: [address] [address] CREATININE 1.33 mg/dL H 0.7-1.3 UREA NITROGEN [...] 71.9 >60 Mar 01, 2024 09:06 PM [facility] URINALYSIS (STL-PB) URINE Specimen Type: URIN E No comment entered. Ordering Provider: ROYA CARTAGENA Report Released Date/Time: Feb 24, 2024 04:42 PM Reporting Lab: [place] [address] [facility] [address] Performing Lab: [address] [address] URINE COLOR Light-Yellow Yellow U.BILIRUBIN Negative mg/dL [...] 1.025 1.005-1.029 Mar 01, 2024 09:06 PM [facility] CBC BLOOD Specimen Type: BLOOD No comment entered. Ordering Provider: ROYA CARTAGENA Report Released Date/Time: Feb 24, 2024 04:42 PM Reporting Lab: [facility] [address] [facility] [address] Performing Lab: [facility] [address] [facility] [address] WBC 7.7 10*3/uL 3.6-11.2 RBC 5.34 10*6/uL [...] 08, 2024 04:16 PM [place]-TOBACCO FORMER USER [facility] Tobacco Use History This section includes a history of the smoking, or tobacco-related health factors, that were collected on or before the date of the Encounter. The data comes from the [place] facility where the Encounter took place. Date/Time Smoking Status/Tobacco Use Comment F acility Jan 08, 2024 04:16 PM VA-TOBACCO QUIT 15 YRS OR MORE [facility] Dec 18, 2023 09:41 AM [place]-TOBACCO FORMER USER [facility] Dec 18, 2023 09:41 AM [place] QU[place] 1 TO < 5 YRS [facility] Advance Directives: All historical and current Section Date Range: From patient's date of to the date document was created. This section includes ALL of a patient's completed or amended [place] Advance and Rescinded Directives. The entries below indicate that a directive exists for the patient, but an actual copy is not included with this document. The data comes from all [facility]. Date Advance Directives Provider Source Aug 28, 2023 ADVANCE DIRECTIVE NO TIFICATION AND SCREENING SYLWIA SANTIAGO [facility] May 14, 2023 ADVANCE DIRECTIVE NO TIFICATION AND SCREENING SYLWIA SANTIAGO [facility] Radiology Reports: +/- 30 days [...] ABDOMEN LIMITED W/BLOOD FLOW DOPPLER: MERLE LAFLEUR [id number] -1990 M Exm Date: APR 16, 2024@07:12 Req Phys: ADINA WALTON Pat Loc: [facility]Y [facility] 1ST SHIFT (R Img Loc: [facility]ULTRAS[facility] Service: Unknown [facility] [address] [place] [address] (Case [id number] COMPLETE) US ABDOMEN LTD, SINGLE ORG OR MORTEZA(US Detailed) CPT:28090 Reason for Study: eval acute cholecystitis (Case [id number] COMPLETE) US BLOOD FLOW ABD/RENAL (LTD) (US Detailed) CPT:25134 Clinical History: Organ to Image: Gallbladder Reason for exam: ho cholelithiasis. here with RUQ abdominal pain and nausea/emesis. Evaluate for acute cholecystitis Report Status: Verified Date Reported: APR 16, 2024 Date Verified: APR 16, 2024 Computer Repairer E-Sig:/ES/JAIRO GARCIA Report: Case [id number], [id number]. US ABDOMEN LTD, SINGLE ORG OR QUADRANT, [...] findings. Primary Interpreting Staff: JAIRO GARCIA, RADIOLOGIST (Computer Repairer) Primary Interpreting Resident: JOSE ROBERTO RAMSAY, Resident Physician /JAIRO NGUYEN [facility] Apr 16, 2024 04:[address] ABD PEL W/O & W CONT & 3D: MERLE LAFLEUR [id number] -1990 M Exm Date: APR 16, 2024@04:46 Req Phys: ADINA WALTON Loc: [facility]Y [facility]PT 1ST SHIFT (R Img Loc: [facility]CT IMAGING [facility] Service: [facility], [facility] [address] [place] [address] (Case [id number] COMPLETE) CT ABDOMEN AND PELVIS W/CONTRAST (CT Detailed) CPT:42418 Contrast Media : Non-ionic Iodinated Reason for Study: evaluate for acute cholecystitis (Case [id number] COMPLETE) CT 3D RENDERING W INDEPENDENT WOR(CT Detailed) CPT:11900 Clinical History: Responsible Attending: jordon Attending Contact Number: fl Resident Contact Number: ho cholelithiasis, now wi [...] 16, 2024 Date Verified: APR 16, 2024 Computer Repairer E-Sig:/ES/RANDALL JULES MD Report: Spiral axial imaging [...] Primary Interpreting Staff: RANDALL JULES MD, Radiologist (Computer Repairer) /RANDALL BLANK [facility] Mar 25, 2024 07:[address] LUMBAR SPINE W/ O CONT: MERLE LAFLEUR [id number] -1990 M Exm Date: MAR 25, 2024@19:39 Req Phys: JESSICA PATTEN Loc: [facility] 3RD SHIFT (R Img Loc: [facility]CT IMAGING [facility] Service: Unknown [facility], [facility] [address] [place] [address] (Case [id number] COMPLETE) CT LUMBAR SPINE W/O CONT (CT Detailed) CPT:95446 Reason for Study: eval for fx/dislocation Clinical History: Responsible Attending: DR JESSICA PATTEN Attending Contact Number: [phone] Resident Contact Number: FELL while roller blading. [...] 25, 2024 Date Verified: MAR 25, 2024 Computer Repairer E-Sig: Report: CT THORACIC SPINE W/O CONT, [...] fracture fragments. READING PHYSICIAN: Caio Rollins MD -[id number] 03/25/2024 18:30 PDT [facility] National Teleradiology Program [phone] (For Medical Practitioner Use Only) Attention Patients / Veterans: If you have questions or concerns about these test results, please contact your ordering provider or primary care team. Primary Interpreting Staff: RADIOLOGY,OUTSIDE SERVICE, Staff Physician / RADIOLOGY,OUTSIDE SERVICE [facility] Mar 25, 2024 07:[address] THORACIC SPINE W/O CONT: MERLE LAFLEUR [id number] -1990 M Exm Date: MAR 25, 2024@19:39 Req Phys: JESSICA PTATEN Loc: [facility]PT 3RD SHIFT (R Img Loc: [facility]CT IMAGING [facility] Service: [facility] [address] [place] [address] (Case [id number] COMPLETE) CT THORACIC SPINE W/O CONT (CT Detailed) CPT:46467 Reason for Study: eval for fx/dislcoation Clinical History: Responsible Attending: dr jessica patten Attending Contact Number: [phone] Resident Contact Number: FELL while roller blading. [...] 25, 2024 Date Verified: MAR 25, 2024 Computer Repairer E-Sig: Report: CT THORACIC SPINE W/O CONT, [...] fracture fragments. READING PHYSICIAN: Caio Rollins MD -[id number] 03/25/2024 18:30 PDT [facility] National Teleradiology Program [phone] (For Medical Practitioner Use Only) Attention Patients / Veterans: If you have questions or concerns about these test results, please contact your ordering provider or primary care team. Primary Interpreting Staff: RADIOLOGY,OUTSIDE SERVICE, Staff Physician / RADIOLOGY,OUTSIDE SERVICE [facility] Pathology Reports: +/- 30 [...] the Encounter. The data comes from all [facility] facilities. Date/Time Pathology Report Provider Source Apr [...] seen, and no masses are grossly identified. Certified Income Tax Preparer sections of the wall from the body [...] Report Performed By: [facility] [address] [place] [address]# [id number] [address] [facility] [address] [place] [address] $FTR - - - - - - [...] - - RAMSESJEREMERLE FERNÁNDEZ STANDARD FORM 515 ID:[id number] SEX:M :1990 AGE: 34 LOC:[facility] PCP: Jaswinder Villafuerte MD /cydney/ CHELI MORALES Pathologist Signed: 04/21/2024 11:44 CHELI MORALES [facility] Encounter Notes: All associated encounter notes This section contains the clinical notes associated to the Encounter. Date/Time Encounter Note(s) Provider Source Mar 30, 2024 05:50 PM INTERVENTIONAL RAD IOLOGY CONSULT: LOCAL TITLE: E-CONSULT IR OUTPT [facility] STANDARD TITLE: INTERVENTIONAL RADIOLOGY CONSULT DATE OF NOTE: MAR 30, 2024@17:50 ENTRY DATE: MAR 30, 2024@17:50:42 AUTHOR: ARIEL CULLEN EXP COSIGNER: URGENCY: STATUS: COMPLETED The reason for consult: Acute L2 and L3 superior endplate fractures with 30% wedge compression deformities. Axial and hyperflexion injury. 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 The recommendations/findings offered are the result of information from the requesting provider and a chart review only. Diagnosis and/or Impression: Given the age of the patient would recommend conservative measures rather than kyphoplasty at this time, since the compression fractures tend to heal faster in young patients. Agree with neurosurgical consultation. 11-20 minutes or less spent reviewing patient's medical records /cydney/ Ariel Cullen MD Interventional Radiologist Signed: 03/30/2024 17:57 Receipt Acknowledged By: 03/31/2024 13:14 /cydney/ CARLOS GUNN RN REGISTERED NURSE ARIEL CULLEN [facility]
[2025-01-15 07:54] VITALS: BP 128/74; PULSE 88; RESP 16; TEMP 36.6; O2SAT 100
--- NOTE | 2025-01-15 08:03 | ED_ITS ---
HPI - General Adult General Chief complaint: Skin/Abscess/Foreign Body Stated complaint: i woke up with a giant lump in my rectum Time Seen by Provider: 01/15/25 07:41 History of Present Illness HPI narrative: 34-year-old male presenting to the emergency department for evaluation for b ulging at his rectum that he 1st noticed this morning. Does have history of chronic diarrhea after having his gallbladder removed. Patient states yesterday he did ?spend more time than average on the toilet ?. Patient woke up this morning with the discomfort. Patient has no prior history of hemorrhoids or rectal abscess. Related Data Allergies Allergy/AdvReac Type Severity Reaction Status Date / Time metoclopramide (From Reglan) AdvReac Jittery Verified 07/22/24 05:04 prochlorperazine (From AdvReac Jittery Verified 07/22/24 05:04 Compazine) Review of Systems Review of Systems: All systems reviewed & are unremarkable except as noted in HPI and below PMFSH Past Medical History Medical History Back fracture History of gastroesophageal reflux (GERD) Surgical History Surgical History Hx of cholecystectomy May 2024 Social History Social History Social History: Receives care at [employer] [facility]) Substance use: never Living arrangements: with family Additional living arrangements comments: and kids Occupation/Education: occupation Additional occupation/education comments: works at [employer] Exam Narrative: APPEARANCE: Well appearing, no pain, no distress, well-nourished. HEAD: normocephalic, atraumatic. EYES: PERRLA/EOMI, conjunctivae clear. NOSE: Normal no drainage EARS:TMS clear with good light reflex. THROAT: Pharynx clear, no exudate. NECK: Supple. No adenopathy, no masses. RESPIRATORY: Airway patent, respirations nonlabored. Clear to auscultation bilaterally, no rales, rhonchi, wheezing. CARDIOVASCULAR: Regular rate and rhythm without murmurs rubs or gallops. ABDOMINAL: Soft, nontender, nondistended, normal bowel sounds MUSCULOSKELETAL: Moves all extremities. Strength/ROM intact, No edema, No calf tenderness. NEURO: Alert. Cranial nerves II through XII intact. Good gait. Good coordination SKIN: Warm, dry. Normal Color Rectal exam: Non thrombosed external hemorrhoid, no abscess Course Vital Signs Vital signs: Vital Signs Temperature 97.9 F 01/15/25 07:54 Pulse Rate 88 01/15/25 07:54 Respiratory Rate 16 01/15/25 07:54 Blood Pressure 128/74 01/15/25 07:54 Pulse Oximetry 100 01/15/25 07:54 Oxygen Delivery Room Air 01/15/25 07:54 Temperature 97.9 F 01/15/25 08:17 Pulse Rate 72 01/15/25 08:17 Respiratory Rate 16 01/15/25 08:17 Blood Pressure 118/68 01/15/25 08:17 Pulse Oximetry 100 01/15/25 08:17 Oxygen Delivery Room Air 01/15/25 07:54 Medical Decision Making MDM Narrative Medical decision making narrative: 34-year-old male with a nonthrombosed external hemorrhoid. Differential Diagnosis Differential Diagnosis: Abscess, hemorrhoid, thrombosed hemorrhoid, anal fissure Vital Signs Vital Signs: Vital Signs Temperature 97.9 F 01/15/25 07:54 Pulse Rate 88 01/15/25 07:54 Respiratory Rate 16 01/15/25 07:54 Blood Pressure 128/74 01/15/25 07:54 Pulse Oximetry 100 01/15/25 07:54 Oxygen Delivery Room Air 01/15/25 07:54 Temperature 97.9 F 01/15/25 08:17 Pulse Rate 72 01/15/25 08:17 Respiratory Rate 16 01/15/25 08:17 Blood Pressure 118/68 01/15/25 08:17 Pulse Oximetry 100 01/15/25 08:17 Oxygen Delivery Room Air 01/15/25 07:54 Discharge Plan Discharge Clinical Impression: External hemorrhoid Patient Disposition: Home Condition: Stable Instructions: Hemorrhoids (ED) Additional Instructions: Ivwj-pmy-qnvtezy hemorrhoid treatment such as witch Danielle. Switch to a clear liquid diet to help with your diarrhea, avoid excessive time on the toilet. Have close follow-up with surgery. Have close follow-up with your primary care physician. Patient Language: Malawian Prescriptions: New eheuygceg-sdzvkseeykqzze-xydc 2.8-0.55 % gel 1 applic RECTAL BID Qty: 100 0RF No Action prednisone 20 mg tablet 40 mg PO DAILY 5 Days Qty: 10 0RF triamcinolone acetonide 0.1 % cream 1 applic TOPICAL BID 7 Days Qty: 80 0RF famotidine 20 mg tablet 20 mg PO BID 30 Days Qty: 60 0RF omeprazole 40 mg capsule,delayed release(DR/EC) 40 mg PO DAILY 30 Days Qty: 30 0RF ondansetron 4 mg tablet,disintegrating 4 mg PO Q8H PRN (Reason: nausea and vomiting) Qty: 7 0RF dicyclomine 10 mg capsule 10 mg PO BID PRN (Reason: abdominal pain) Qty: 10 0RF polyethylene glycol 3350 [Miralax] 17 gram/dose powder 17 g PO DAILY Qty: 119 0RF psyllium husk [Metamucil] 0.4 gram capsule 0.4 g PO DAILY Qty: 30 0RF magnesium citrate [OneLAX Magnesium Citrate] Solution 150 ml PO DAILY PRN (Reason: constipation) Qty: 296 0RF Follow-up/Referrals: Cora Jara MD [Physician] - PHYSICIAN NOT ON STAFF,NONSTAFF [Non-Staff] -
--- OUTSIDE RECORDS SUMMARY | 2025-01-15 08:13 | XMS_ITS | Clinical Summary ---
Author Organization [facility] [place] [facility] Address [address] [place] [address] Care Team Providers Care Art Education Professor Name Role Phone Unknown, Notinfile Primary Care [...] patient's age to complete this topic [place] [address] [place] [address] [place] [address] [address] [facility] CLAIMS [facility] OFFICE COMM CARE Care Teams Art Education Professor Relationship Specialty Start Date End Date Unknown, Notinfile PCP - General 03/11/23
--- OUTSIDE RECORDS SUMMARY | 2025-01-15 08:13 | XMS_ITS | Referral Summary ---
Author Organization [facility] [place] [facility] Address [address] [place] [address] Care Team Providers Care Staining Machine Operator Name Role Phone Unknown, Notinfile Primary [...] Plan of Treatment Not on file Insurance [facility] CLAIMS [facility] CARE Care Teams Staining Machine Operator Relationship Specialty Start Date End Date Unknown, Notinfile PCP - General 03/11/23
--- OUTSIDE RECORDS SUMMARY | 2025-01-15 08:13 | XMS_ITS | Clinical Summary ---
Author Organization [facility] Address [address] [place] [address] Care Team Providers Care House Repairer Name Role Phone Nile Garza MD Primary Care Provider [phone] Allergies No known active allergies Medications omeprazole [...] Comments Blood Pressure 126/70 08/10/2019 9:36 AM [facility] Pulse 72 08/10/2019 9:36 AM [facility] Temperature 36.9 C (98.5 F) 08/04/2019 6:45 PM [facility] T[facility]ER Respiratory Rate 16 08/04/2019 6:45 PM [facility] T[facility] Oxygen Saturation 98% 08/10/2019 9:36 AM [facility] T[facility]ER Inhaled Oxygen Concentration - - Weight 107 kg (236 lb) 08/10/2019 9:36 AM [facility] TACKER Height 188 cm (6' 2 ) 08/10/2019 9:36 AM R[facility] TACKER Body Mass Index 30.3 08/10/2019 9:36 AM RAND TACKER Plan of Treatment Health Maintenance Due Date [...] to complete [place] [id number] TODD Care Teams House Repairer Relationship Specialty Start Date End Date Nile Garza MD PCP - General FAMILY PRACTICE 02/19/19
--- OUTSIDE RECORDS SUMMARY | 2025-01-15 08:14 | XMS_ITS | Continuity of Care Document ---
Author Name [facility] Organization [facility] Care Team Providers Care Jitney Driver Name Role Phone [facility] Unavailable Unavailable Problems Combined list of problems from Department of Defense and Veterans Affairs facilities. It does not include entries that were removed or entered in error. Problem Status Onset Date Problem Type Date of Resolution Comments Source Encounter for pre-employment examination Active 11/18/19 25 Diagnosis 0055C-375t h [facility] FATTY LIVER - NONALCOHOLIC Active Condition DoD CONSTIPATION Inactive Condition DoD DYSPEPSIA Active Condition DoD joint pain, localized in the wrist Active Condition [facility] Patient Education Active Condition DoD Anticipatory Guidance: Unsafe Sexual Practices Inactive Condition DoD Inquiry And Counseling: Contraceptive Practices Active Condition [facility] Patient Education Dietary Changing Eating Habits Active Condition DoD 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 To RTC if no improvement by then. Also to continue palliative treatment of viral uri and to report to clinic if continues to have eye discharge. [facility] ALLERGIC RHINITIS Active Condition Wi ll treat with zyrtec and flonase and follow up closely prn. FOP present and agrees with plan. [facility] OTITIS MEDIA RIGHT EAR Inactive Condition [facility] Allergic rhinitis Active Condition [facility] Allergic Rhinitis (SCT [id number]) Active Condition [facility] Anxiety Active Condition [facility] Anxiety (SCT [id number]) Active Condition [facility] Back pain Active Condition 0055C-375t h [facility] Cholecystitis Active Condition [facility] Chronic pain syndrome Active Condition [facility] Depression (SCT [id number]) Active Condition [facility] Depressive disorder Active Condition [facility] Disturbance of attention Active Condition [facility] Exposure to potentially hazardous substance ([facility] [id number]) Active Condition Dec 27 Entered By: SIERRA DAMIAN Comment: Entered automatically through ИРИНА Problem List documentation program [facility] [place] Gastroesophageal reflux disease Active Condition [facility] Headache Active Condition [facility] Headache (SCT 16031901) Active Condition [facility] Hiatal hernia Active Condition [facility] Hiatus hernia Active Condition [facility] History of traumatic brain injury Active Condition [facility] History of traumatic brain injury Active Condition May 14, 2023 Entered By: HANDY MALLORY Comment: aprox 2014 [facility] HL - Hearing loss Active Condition Au g 2022 Entered By: HANDY MALLORY Comment: more to the left side [facility] Left knee pain Active Condition [facility] Low back pain Active Condition [facility] Migraine Active Condition 0055C-375t h [facility] Nocturia Active Condition [facility] Obstructive sleep apnea Active Condition 0055C-375t h [facility] Obstructive Sleep Apnea of Adult ([facility] [id number]) Active Condition [facility] Pain of left shoulder joint Active Condition [facility] Pes planus Active Condition [facility] Sleep disorder Active Condition [facility] Tinnitus Active Condition [facility] Tinnitus of left ear Active Condition [facility] Vitamin D deficiency Active Condition [facility] Depression Active Condition 0055C-375t h [facility] Diagnosis: ICD-10-CM Z01.20 Encounter for dental exam and cleaning w/o abnormal findings Active Diagnosis [facility] Diagnosis: ICD-10-CM S32.020S Wedge compression fracture of second lum vertebra, sequela Active Diagnosis [facility] Diagnosis: ICD-10-CM R10.10 Upper abdominal pain, unspecified Active Diagnosis [facility] Diagnosis: ICD-10-CM Z09 Encntr for f/u exam aft trtmt for cond oth than malig neoplm Active Diagnosis [facility] Diagnosis: ICD-10-CM R42 Dizziness and giddiness Active Diagnosis [facility] Diagnosis: ICD-10-CM K59.00 Constipation, unspecified Active Diagnosis [facility] Diagnosis: ICD-10-CM Z71.1 Person w feared th complaint in whom no diagnosis is made Active Diagnosis [facility] Diagnosis: ICD-10-CM Z02.89 Encounter for other administrative examinations Active Diagnosis [facility] Diagnosis: ICD-10-CM E55.9 Vitamin D deficiency, unspecified Active Diagnosis [facility] Diagnosis: ICD-10-CM F41.9 Anxiety disorder, unspecified Active Diagnosis [facility] Diagnosis: ICD-10-CM M51.36 Other intervertebral disc degeneration, lumbar region Active Diagnosis [facility] Diagnosis: ICD-10-CM Z02.9 Encounter for administrative examinations, unspecified Active Diagnosis [facility] Diagnosis: ICD-10-CM F33.1 Major depressive disorder, recurrent, moderate Active Diagnosis [facility] Diagnosis: ICD-10-CM K81.2 Acute cholecystitis with chronic cholecystitis Active Diagnosis [facility] Diagnosis: ICD-10-CM S32.030A Wedge compression fracture of third lumbar vertebra, init Active Diagnosis [facility] Diagnosis: ICD-10-CM K81.0 Acute cholecystitis Active Diagnosis [facility] Diagnosis: ICD-10-CM Z01.818 Encounter for other preprocedural examination Active Diagnosis [facility] Admit Reason: INTRACTABLE BILARY COLIC Active Diagnosis [facility] Diagnosis: ICD-10-CM Z71.81 Spiritual or sikhism counseling Active Diagnosis [facility] Diagnosis: ICD-10-CM Z79.899 Other custodial (current) drug therapy Active Diagnosis [facility] Diagnosis: ICD-10-CM M54.51 Vertebrogenic low back pain Active Diagnosis [facility] Diagnosis: ICD-10-CM M54.50 Low back pain, unspecified Active Diagnosis [facility] Diagnosis: ICD-10-CM S32.000A Wedge compression fracture of unsp lumbar vertebra, init Active Diagnosis [facility] Diagnosis: ICD-10-CM K80.20 Calculus of gallbladder w/o cholecystitis w/o obstruction Active Diagnosis [facility] Diagnosis: ICD-10-CM Z23 Encounter for immunization Active Diagnosis [facility] Diagnosis: ICD-10-CM R07.9 Chest pain, unspecified Active Diagnosis [facility] Diagnosis: ICD-10-CM I20.9 Angina pectoris, unspecified Active Diagnosis [facility] Diagnosis: ICD-10-CM Z13.31 Encounter for screening for depression Active Diagnosis [facility] Diagnosis: ICD-10-CM K80.80 Other cholelithiasis without obstruction Active Diagnosis [facility] Diagnosis: ICD-10-CM K21.00 Gastro-esophageal reflux dis with esophagitis, without bleed Active Diagnosis [facility] Diagnosis: ICD-10-CM K80.81 Other cholelithiasis with obstruction Active Diagnosis [facility] Diagnosis: ICD-10-CM R10.9 Unspecified abdominal pain Active Diagnosis [facility] Diagnosis: ICD-10-CM F41.1 Generalized anxiety disorder Active Diagnosis [facility] Diagnosis: ICD-10-CM M54.2 Cervicalgia Active Diagnosis [facility] [place] Diagnosis: ICD-10-CM Z11.59 Encounter for screening for other viral diseases Active Diagnosis [facility] Diagnosis: ICD-10-CM K80.70 Calculus of GB and bile duct w/o cholecyst w/o obstruction Active Diagnosis [facility] Diagnosis: ICD-10-CM H52.13 Myopia, bilateral Active Diagnosis [facility] Diagnosis: ICD-10-CM R11.2 Nausea with vomiting, unspecified Active Diagnosis [facility] Medications Combined list of outpatient [...] TIMES A DAY FOR PAIN ORAL 05/14/2024 [id number] KAYLI URIOSTEGUI 2022 300 [facility] BUPROPION HCL 150MG 24HR TAB,SA TAKE ONE TABLET BY MOUTH EVERY MORNING FOR DEPRESSI ON SWALLOW WHOLE - DO NOT CRUSH OR CHEW. ORAL 04/22/2024 [id number] 4 CHARLA CISSE 2023 90 [facility] CHLORHEXIDI NE GLUCONATE 4% LIQUID,TOP [...] THE MORNING OF SURGERY. TOPICA L 03/08/2024 [id number] MORTON 2023 120 [facility] CHOLECALCIF BERNICE 50MCG (2,000UNIT) TAB TAKE ONE TABLET BY MOUTH ONE TIME EACH DAY FOR VITAMIN D DEFICIEN CY ORAL 05/14/2024 [id number] KAYLI URIOSTEGUI 2022 100 [facility] DICLOFENAC NA 1% GEL,TOP APPLY 4 GRAMS TOPICALL Y THREE TIMES A DAY FOR PAIN AND INFLAMMA TION TO AFFECTED JOINT (2 GRAMS TO BACK AND 4 GRAMS TO KNEE(S)) (MEASURE DOSE USING SUPPLIED DOSING CARD) TOPICA L 05/14/2024 [id number] 4 KATIANAKAYLI ESTEBAN 2022 200 [facility] DICYCLOMINE HCL 20MG TAB TAKE ONE TABLET BY MOUTH THREE TIMES A DAY FOR IRRITABL E COLON ORAL 05/14/2024 [id number] 4 KAYLI URIOSTEGUI 2022 270 [facility] DOCUSATE NA 100MG CAP TAKE TWO CAPSULES BY MOUTH TWICE DAILY NEEDED FOR SOFTENIN G STOOL HOLD FOR LOOSE STOOL/DI ARRHEA. ORAL 04/24/2024 [id number] TIANA PATTEN 2023 40 [facility] FAMOTIDINE 20MG TAB TAKE ONE TABLET BY MOUTH TWICE A DAY FOR HEARTBUR N ORAL 05/14/2024 [id number] 4 KATIANAKAYLI ESTEBAN 2022 180 [facility] FLUARIX QUAD [id number] (influenza virus vaccine quadrival [id number](6 mos and up)/PF), 60MCG/.5ML, FLUARIX QUAD 2019- 1 (influen za virus vaccine quadriva l 2019-(6 mos and up)/PF), 60MCG/.5 ML, Start Date: 11/27/20 Status: Ordered Repeat number: 1 Ordered 2021 No Facilit y Access FLUTICASONE PROPIONATE 50MCG/SPRAY SOLN,NASAL, 16GM USE 1 SPRAY EACH NOSTRIL ONE TIME EACH DAY FOR CONGESTI ON NASAL 05/14/2024 [id number] 4 KATIANAKAYLI ESTEBAN 2022 1 [facility] FOLIC ACID 1MG TAB TAKE ONE TABLET BY MOUTH ONE TIME EACH DAY FOR ANEMIA FROM INADEQUA TE FOLIC ACID ORAL 05/14/2024 [id number] 4 KAYLI URIOSTEGUI 2022 90 [facility] HYDROCODONE 5MG/ACETAMI NOPHEN 325MG TAB TAKE 1 TABLET BY MOUTH EVERY 6 HOURS NEEDED FOR SEVERE PAIN CAUTION: DO NOT EXCEED 4000MG PER DAY ACETAMIN OPHEN (APAP) FROM ALL MEDS. ORAL 04/24/2024 [id number] TIANA PATTEN 2023 24 [facility] HYDROXYZINE HCL 10MG TAB TAKE ONE TABLET BY MOUTH THREE TIMES A DAY FOR ANXIETY ORAL 05/14/2024 [id number] 4 [facility] LUZRAKAYLI JEVON 2022 270 [facility] IBUPROFEN 600MG TAB TAKE ONE TABLET BY MOUTH FOUR TIMES A DAY NEEDED FOR PAIN TAKE WITH FOOD. ORAL 04/24/2024 [id number] 4 TIANA PATTEN 2023 100 [facility] LIDOCAINE 5% PATCH APPLY 1 PATCH TO SKIN SITE ONCE A DAY APPLY PATCH AND PRESS FIRMLY FOR 10-15 SECONDS. KEEP ON FOR 12 HOURS THEN REMOVE PATCH FOR 12 HOURS. TRANSD ERMAL ACTIVE 08/08/2025 [id number] CADY TIAN 2023 90 [facility] MAGNESIUM OXIDE 420MG TAB TAKE ONE TABLET BY MOUTH ONE TIME EACH DAY FOR MAGNESIU M SUPPLEME NTATION ORAL 05/14/2024 [id number] 4 [facility] LUZDHAVALE JEVON 2022 100 [facility] MELOXICAM 15MG TAB TAKE ONE TABLET BY MOUTH ONE TIME EACH DAY FOR PAIN AND INFLAMMA TION (TAKE WITH FOOD) ORAL 01/03/2024 [id number] ,L MARINO E 2023 15 [place] [place] [facility] MELOXICAM 7.5MG TAB TAKE ONE TABLET BY MOUTH ONCE A DAY FOR PAIN ORAL ACTIVE 12/25/2025 [id number] LEROY OSBORNE 2024 30 [facility] METHOCARBAM OL 500MG TAB TAKE THREE TABLETS BY MOUTH EVERY 6 HOURS FOR 2 DAYS, THEN TAKE TWO TABLETS EVERY 6 HOURS NEEDED FOR 12 DAYS FOR MUSCLE SPASMS/M USCLE RELAXATI ON (TAKE WITH FOOD) ORAL 01/03/2024 [id number] Doug KENNY ES E 2023 120 [place] [facility] METHOCARBAM OL 750MG TAB TAKE 1 TABLET BY MOUTH FOUR TIMES A DAY NEEDED FOR MUSCLE SPASM ORAL 04/24/2024 [id number] TIANA PATTEN 2023 30 [facility] NALOXONE HCL 4MG/SPRAY SOLN,SPRAY, NASAL USE 1 SPRAY (4MG) INTO ONE NOSTRIL ONLY ONE-TIME FOR OPIOID OVERDOSE DO NOT PRIME NASAL SPRAY. SPRAY ONE DOSE IN ONE NOSTRIL, GIVE ADDITION AL DOSE IF PATIENT DOES NOT START BREATHIN G WITHIN 2-3 MINUTES OR STOPS BREATHIN G AGAIN. CALL 911. IF USED, NOTIFY PROVIDER . NASAL 04/24/2024 [id number] PATTENTIANA 2023 2 [facility] OMEPRAZOLE 40MG CAP,EC TAKE ONE CAPSULE BY MOUTH EVERY MORNING BEFORE A MEAL FOR ACID REFLUX. TAKE 30 MINUTES PRIOR TO FOOD. ORAL 05/04/2024 [id number] 4 JONATHON CHA E 2023 90 [facility] ONDANSETRON HCL 4MG TAB,ORALLY DISINTEGRAT ING TAKE ONE TABLET UNDER THE TONGUE EVERY EIGHT(8) HOURS NEEDED FOR NAUSEA/V OMITING SUBLIN GUAL 03/14/2024 [id number] ARSENIO [place] ISTA M 2022 60 [facility] OXYCODONE HCL 5MG TAB TAKE ONE TABLET BY MOUTH EVERY 6 HOURS NEEDED FOR POST-OPE RATIVE PAIN MAY CAUSE CONSTIPA TION ORAL 05/18/2024 [id number] THOMAS LUIS 2023 15 [facility] predniSONE 20 mg oral tablet predniSO NE 20 mg oral tablet Start Date: 07/09/21 Status: Ordered Repeat number: 1 Ordered 2021 No Facilit y Access PREDNISONE 20MG TAB TAKE ONE TABLET BY MOUTH ONE TIME EACH DAY FOR INFLAMMA TION (TAKE WITH FOOD) ORAL 01/03/2024 [id number] ,L ES E 2023 6 [place] [facility] SODIUM FLUORIDE 1.1% TOOTHPASTE USE DIRECTED BY MOUTH TWICE A DAY FOR DENTAL CARIES TOOTHPAS TE (DO NOT SWALLOW) .APPLY A PEA-SIZE D AMOUNT OF THE PASTE TO A TOOTHBRU SH AND BRUSH THOROUGH LY FOR TWO MINUTES, AT MORNING AND AT NIGHT; SPIT, DO NOT RINSE. DO NOT EAT, DRINK, OR RINSE FOR 30 MINUTES AFTER USE. ORAL ACTIVE 01/09/2026 [id number] LISA HERNANDEZ 2024 51 [facility] VANESSA Orosco SUMATRIPTAN SUCCINATE 50MG TAB TAKE ONE TABLET BY MOUTH ONE TIME NEEDED AT ONSET OF MIGRAINE . MAY REPEAT DOSE AFTER 2 HOURS IF NEEDED; DO NOT EXCEED 200 MG IN 24 HOURS. ORAL 05/14/2024 [id number] 4 KAYLI URIOSTEGUI 2022 18 [facility] triamcinolo ne 0.1% topical cream triamcin olone [...] to drug (finding) Anxiety SEVERE active 5 [facility] COMPAZINE INJECTION Propensity to adverse reactions to drug (finding) Hyperactive behavior MODERATE active 3 [place] [place] NO OUTPUT FOR NCID [id number] Drug allergy (disorder) active 8 DoD Immunizations Combined list of available immunizations from the Department of Defense and Veterans Affairs facilities. Immunization Series Date Given Administered By Site Reaction Lot Number CVX Code Drug Cornetist Status Comments Source TDAP 2023 VAHID MENDIOLA A LEFT DELTO ID [id number] 115 complet ed Booster for Series, [place], [facility] INFLUENZA, UNSPECIFIED FORMULATION 2022 88 complet ed HISTORICA L INFORMATI ON - FROM OTHER PROVIDER, NUrmila HENRIQUEZ /SU[facility] INFLUENZA, UNSPECIFIED FORMULATION 2022 88 complet ed HISTORICA L INFORMATI ON - FROM PATIENT'S RECALL, [facility] influenza, injectable, quadrivalent- pf 2020 [id number] 150 [employer] complet ed influenza , injectabl e, quadrival ent-pf 06/21/21 Given Ambulat ory Pharmac y INFLUENZA, INJECTABLE, QUADRIVALENT, PRESERVATIVE FREE [address] [facility] Influenza, injectable, quadrivalent, preservative free 0 2020 [id number] 150 [employer] (SEQ) complet ed Influenza , injectabl e, quadrival ent, preservat kayli free DoD influenza, injectable, quadrivalent- pf 2020 TRS 150 GlaxoSmithK[employer] ne complet ed influenza , injectabl e, quadrival ent-pf 11/26/20 Given Ambulat ory Pharmac y influenza, injectable, quadrivalent, preservative free 2020 [id number], () Not Given influenza , injectabl e, quadrival ent, preservat akyli free DoD Influenza, injectable, quadrivalent, preservative free 0 2020 Unknown, Provider TRS 150 [employer] (SKB) complet ed Influenza , injectabl e, quadrival ent, preservat kayli free DoD INFLUENZA, INJECTABLE, QUADRIVALENT, PRESERVATIVE FREE 2018 150 complet ed [facility] HEP A, ADULT 2018 52 complet ed [facility] measles and rubella virus vaccine [...] quadrivalent, contains preservative 0 2016 [id number] [facility] complet ed influenza , injectabl e, quadrival ent, contains preservat kayli DoD influenza, injectable, quadrivalent- pf 2015 [id number] 150 [employer] complet ed influenza , injectabl e, quadrival ent-pf 07/28/16 Given Ambulat ory Pharmac y Influenza, injectable, quadrivalent, preservative free 0 2015 [id number] 150 [employer] (SEQ) comple t ed Influenza , injectabl e, quadrival ent, preservat kayli free DoD anthrax vaccine 2015 UNK 24 Unknown complet ed anthrax vaccine 10/12/15 Given Ambulat ory Pharmac y anthrax vaccine 2 2015 UNK 24 Unknown (UNK) comple t ed anthrax vaccine DoD influenza, seasonal, injectable 2014 [id number] 1A 141 CSL Behring complet ed influenza , seasonal, injectabl e 06/14/15 Given Ambulat ory Pharmac y Influenza, seasonal, injectable 0 2014 [id number] [id number] 141 CS [employer] ([facility]) complet ed Influenza , seasonal, injectabl [...] vaccine DoD influenza virus vaccine, live 2011 [id number] [employer] comple t ed influenza virus vaccine, [...] B vaccine 2 2011 [id number] 104 [facility] (SKB) complet ed hepatitis A and hepatitis B vaccine DoD influenza virus vaccine, live, attenuated, for intranasal use 0 2011 [id number] 111 [employer] (MED) complet ed influenza virus vaccine, live, attenuate d, for intranasa l use DoD Influenza, seasonal, injectable 0 2011 UNKNOWN 141 Unknown (UNK) comple t ed Influenza , seasonal, injectabl e DoD HEP A, ADULT 2011 52 complet ed [facility] measles and rubella virus vaccine 0 2011 04 () Not Given measles and rubella virus vaccine DoD varicella virus vaccine 0 2011 21 () Not Given varicella virus vaccine DoD adenovirus vaccine, live 2011 [id number] 143 Unknown complet ed adenoviru s vaccine, live 04/30/12 Given Ambulat ory Pharmac y tetanus, diphtheria, acellular pertu is 2011 [id number] 115 [facility] ne complet ed tetanus, diphtheri a, acellular pertussis 04/30/12 Given Ambulat ory Pharmac y tetanus-dipht h toxoids (Td) adult/adol 2011 UNKNOWN 09 Unknown complet ed tetanus-d iphth toxoids (Td) adult/ado l 04/30/12 Given Ambulat ory Pharmac y meningococcal A,C,Y,W-135 (MCV4P) 2011 [id number] 114 sanofi pasteur complet ed meningoco ccal A,C,Y,W-1 35 (MCV4P) 04/30/12 Given Ambulat ory Pharmac y hepatitis A-hepatitis B vaccine 2011 [id number] 1AA 104 [facility] hepatitis A-hepatit is B vaccine [...] B vaccine 1 2011 [id number] 1AA 104 [employer] (SKB) complet ed hepatitis A and hepatitis B vaccine DoD meningococcal polysaccharid e (groups A, C, Y and W-135) diphtheria toxoid conjugate vaccine (MCV4P) 0 2011 [id number] 114 Sanofi Pasteur (PMC) complet ed meningoco ccal polysacch aride (groups A, C, Y and W-135) diphtheri a toxoid conjugate vaccine (MCV4P) DoD tetanus toxoid, reduced diphtheria toxoid, and acellular pertu is vaccine, adsorbed 0 2011 [id number] 7BC 115 [employer] (SKB) complet ed tetanus toxoid, reduced diphtheri a toxoid, and acellular pertussis vaccine, adsorbed DoD Adenovirus, type 4 and type 7, live, oral 0 2011 [id number] 9 143 Unknown (UNK) complet ed Adenoviru [...] vaccine DoD hepatitis B pediatric/ado lescent 2003 [id number] A6 08 GlaxoSmithKli ne complet ed hepatitis B pediatric /adolesce nt 11/26/03 Given Ambulat ory Pharmac y hepatitis B vaccine, pediatric or pediatric/ado lescent dosage 3 2003 [id number] A6 08 [employer] (SKB) complet ed hepatitis B vaccine, pediatric or pediatric /adolesce nt dosage DoD ZOSTER LIVE 2003 121 complet ed DoD 528th SPPT BAT (SPEC OP) varicella virus vaccine 2002 [id number] 21 Merck & Company Inc complet ed varicella virus vaccine 06/22/03 Given Ambulat ory Pharmac y hepatitis B pediatric/ado lescent 2002 [id number] A2 08 GlaxoSmithKli ne complet ed hepatitis B pediatric /adolesce nt 06/22/03 Given Ambulat ory Pharmac y hepatitis B vaccine, pediatric or pediatric/ado lescent dosage 2 2002 [id number] A2 08 [employer] (SKB) complet ed hepatitis B vaccine, pediatric or pediatric /adolesce nt dosage DoD varicella virus vaccine 1 2002 [id number] 21 Merck (MSD) complet ed varicella virus vaccine DoD ZOSTER LIVE 2002 121 complet ed DoD 528th SPPT BAT (SPEC OP) tetanus-dipht h toxoids (Td) adult/adol 2002 [id number] 09 sanofi pasteur complet ed tetanus-d iphth toxoids (Td) adult/ado l 04/08/03 Given Ambulat ory Pharmac y hepatitis B pediatric/ado lescent 2002 [id number] A2 08 GlaxoSmithKli ne complet ed hepatitis B pediatric /adolesce nt 04/08/03 Given Ambulat ory Pharmac y hepatitis B vaccine, pediatric or pediatric/ado lescent dosage 1 2002 [id number] A2 08 [employer]Kline (SKB) complet ed hepatitis B vaccine, pediatric or pediatric /adolesce nt dosage DoD tetanus and diphtheria toxoids, adsorbed, preservative free, for adult use (2 Lf of tetanus toxoid and 2 Lf of diphtheria toxoid) 1 2002 [id number] 09 Sanofi Pasteur (PMC) complet ed tetanus [...] vaccine DoD MMR 1995 03 complet ed [facility] 528th SPPT BAT (SPEC OP) poliovirus vaccine, [...] Oct 10, 2024 05:46 AM Reporting Lab: [facility] [address] [facility] [address] Performing Lab: [facility] [address] [facility] [place] [address] [facility] URINALYSI S W/ CX REFLEX (STL-PB) BILIRUBIN.T OTAL [PRESENCE] IN URINE BY TEST STRIP Negativ emg/dL 10/10 Specimen Type: URINE No comment entered. Ordering Provider: SAUL VELAZQUEZ Report Released Date/Time: Oct 10, 2024 05:46 AM Reporting Lab: [address] [address] Performing Lab: [address] [address] [facility] URINALYSI S W/ CX REFLEX (STL-PB) PH OF URINE BY TEST STRIP 6.0 5.0 - 8.0 10/10 Specimen Type: URINE No comment entered. Ordering Provider: SAUL VELAZQUEZ Report Released Date/Time: Oct 10, 2024 05:46 AM Reporting Lab: [address] [address] Performing Lab: [address] [address] [facility] URINALYSI S W/ CX REFLEX (STL-PB) LEUKOCYTES [#/AREA] IN URINE SEDIMENT BY MICROSCOPY HIGH POWER FIELD <1/[HPF ] 0 - 5 10/10 Specimen Type: URINE No comment entered. Ordering Provider: SAUL VELAZQUEZ Report Released Date/Time: Oct 10, 2024 05:46 AM Reporting Lab: [address] [address] Performing Lab: [address] [address] [facility] URINALYSI S W/ CX REFLEX (STL-PB) ERYTHROCYTE S [#/VOLUME] IN URINE SEDIMENT BY MICROSCOPY HIGH POWER FIELD 1 /[HPF] 0 - 5 10/10 Specimen Type: URINE No comment entered. Ordering Provider: SAUL VELAZQUEZ Report Released Date/Time: Oct 10, 2024 05:46 AM Reporting Lab: [address] [address] Performing Lab: [address] [place] [address] [facility] URINALYSI S W/ CX REFLEX (STL-PB) APPEARANCE OF URINE Clear 10/10 Specimen Type: URINE No comment entered. Ordering Provider: SAUL VELAZQUEZ Report Released Date/Time: Oct 10, 2024 05:46 AM Reporting Lab: [address] [address] Performing Lab: [address] [address] [facility] URINALYSI S W/ CX REFLEX (STL-PB) NITRITE [PRESENCE] IN URINE BY TEST STRIP Negativ emg/dL 10/10 Specimen Type: URINE No comment entered. Ordering Provider: SAUL VELAZQUEZ Report Released Date/Time: Oct 10, 2024 05:46 AM Reporting Lab: [address] [address] Performing Lab: [address] [address] [facility] URINALYSI S W/ CX REFLEX (STL-PB) EPITHELIAL CELLS [#/AREA] IN URINE SEDIMENT BY MICROSCOPY LOW POWER FIELD 1 /[HPF] 0 - 5 10/10 Specimen Type: URINE No comment entered. Ordering Provider: SAUL VELAZQUEZ Report Released Date/Time: Oct 10, 2024 05:46 AM Reporting Lab: [address] [address] Performing Lab: [place] [address] [facility] [address] [facility] URINALYSI S W/ CX REFLEX (STL-PB) MUCUS [PRESENCE] IN URINE SEDIMENT BY LIGHT MICROSCOPY OCC/[LP F] 10/10 Specimen Type: URINE No comment entered. Ordering Provider: SAUL VELAZQUEZ Report Released Date/Time: Oct 10, 2024 05:46 AM Reporting Lab: [place] [phone] Performing Lab: [facility] [address] [facility] [address] [facility] URINALYSI S W/ CX REFLEX (STL-PB) GLUCOSE [MASS/VOLUM E] IN URINE BY TEST STRIP Normalm g/dL 10/10 Specimen Type: URINE No comment entered. Ordering Provider: SAUL VELAZQUEZ Report Released Date/Time: Oct 10, 2024 05:46 AM Reporting Lab: [place] [address] [address] [facility] [address] Performing Lab: [place] [address] [facility] [address] [facility] URINALYSI S W/ CX REFLEX (STL-PB) PROTEIN [MASS/VOLUM E] IN URINE BY TEST STRIP 50 mg/dL 10/10 H Specimen Type: URINE No comment entered. Ordering Provider: SAUL VELAZQUEZ Report Released Date/Time: Oct 10, 2024 05:46 AM Reporting Lab: [place] [address] [address] [facility] [address] Performing Lab: [place] [address] [address] [facility] [phone] [place] [address] URINALYSI S W/ CX REFLEX (L-PB) URN.UROBILI NOGEN Normalm g/dL 10/10 Specimen Type: URINE No comment entered. Ordering Provider: SAUL VELAZQUEZ Report Released Date/Time: Oct 10, 2024 05:46 AM Reporting Lab: [place] [address] [address] [facility] [address] Performing Lab: [place] [address] [facility] [address] [facility] URINALYSI S W/ CX REFLEX (STL-PB) HEMOGLOBIN [MASS/VOLUM E] IN URINE BY TEST STRIP Negativ emg/dL 10/10 Specimen Type: URINE No comment entered. Ordering Provider: SAUL VELAZQUEZ Report Released Date/Time: Oct 10, 2024 05:46 AM Reporting Lab: [place] [phone] Performing Lab: [place] [id number] URINALYSI S W/ CX REFLEX (STL-PB) KETONES [MASS/VOLUM E] IN URINE BY TEST STRIP Negativ emg/dL 10/10 Specimen Type: URINE No comment entered. Ordering Provider: SAUL VELAZQUEZ Report Released Date/Time: Oct 10, 2024 05:46 AM Reporting Lab: [place] [address] Performing Lab: [place] [id number] URINALYSI S W/ CX REFLEX (STL-PB) URN.LEUK.ES T. Negativ emg/dL 10/10 Specimen Type: URINE No comment entered. Ordering Provider: SAUL VELAZQUEZ Report Released Date/Time: Oct 10, 2024 05:46 AM Reporting Lab: [place] [address] Performing Lab: [place] [id number] [place] [address] URINALYSI S W/ CX REFLEX (STL-PB) SPECIFIC GRAVITY OF URINE 1.033 10/10 H Specimen Type: URINE No comment entered. Ordering Provider: SAUL VELAZQUEZ Report Released Date/Time: Oct 10, 2024 05:46 AM Reporting Lab: [place] [address] Performing Lab: [place] [id number] CBC LEUKOCYTES [#/VOLUME] IN BLOOD BY AUTOMATED COUNT 8.0 10*3/uL 3.6 - 11.2 10/10 Specimen Type: BLOOD No comment entered. Ordering Provider: SAUL VELAZQUEZ Report Released Date/Time: Oct 10, 2024 05:30 AM Reporting Lab: [place] [address] Performing Lab: [address] [address] [facility] CBC ERYTHROCYTE S [#/VOLUME] IN BLOOD BY AUTOMATED COUNT 5.33 10*6/uL 4.10 - 5.70 10/10 Specimen Type: BLOOD No comment entered. Ordering Provider: SAUL VELAZQUEZ Report Released Date/Time: Oct 10, 2024 05:30 AM Reporting Lab: [place] [address] Performing Lab: [place] [id number] CBC HEMOGLOBIN [MASS/VOLUM E] IN BLOOD 15.3 g/dL 13.1 - 16.8 10/10 Specimen Type: BLOOD No comment entered. Ordering Provider: SAUL VELAZQUEZ Report Released Date/Time: Oct 10, 2024 05:30 AM Reporting Lab: [place] [phone] Performing Lab: [address] [phone] CBC HEMATOCRIT [VOLUME FRACTION] OF BLOOD 45.3 38.2 - 48.4 10/10 Specimen Type: BLOOD No comment entered. Ordering Provider: SAUL VELAZQUEZ Report Released Date/Time: Oct 10, 2024 05:30 AM Reporting Lab: [place] [address] Performing Lab: [address] [phone] [place] [address] CBC MCV [ENTITIC VOLUME] BY AUTOMATED COUNT 85.0 fL 80.0 - 100.0 10/10 Specimen Type: BLOOD No comment entered. Ordering Provider: SAUL VELAZQUEZ Report Released Date/Time: Oct 10, 2024 05:30 AM Reporting Lab: [address] [address] Performing Lab: [address] [address] [facility] CBC MCH [ENTITIC MASS] BY AUTOMATED COUNT 28.7 pg 27.0 - 34.0 10/10 Specimen Type: BLOOD No comment entered. Ordering Provider: SAUL VELAZQUEZ Report Released Date/Time: Oct 10, 2024 05:30 AM Reporting Lab: [place] [phone] Performing Lab: [address] [address] CBC MCHC [MASS/VOLUM E] BY AUTOMATED COUNT 33.8 g/dL 33.0 - 36.0 10/10 Specimen Type: BLOOD No comment entered. Ordering Provider: SAUL VELAZQUEZ Report Released Date/Time: Oct 10, 2024 05:30 AM Reporting Lab: [address] [address] Performing Lab: [address] [address] [facility] CBC PLATELETS [#/VOLUME] IN BLOOD BY AUTOMATED COUNT 191 10*3/uL 150 - 400 10/10 Specimen Type: BLOOD No comment entered. Ordering Provider: SAUL VELAZQUEZ Report Released Date/Time: Oct 10, 2024 05:30 AM Reporting Lab: [address] [address] Performing Lab: [address] [address] [facility] CBC PLATELET MEAN VOLUME [ENTITIC VOLUME] IN BLOOD BY AUTOMATED COUNT 9.3 fL 7.5 - 11.2 10/10 Specimen Type: BLOOD No comment entered. Ordering Provider: SAUL VELAZQUEZ Report Released Date/Time: Oct 10, 2024 05:30 AM Reporting Lab: [facility] [address] [facility] [address] Performing Lab: [facility] [address] [facility] [address] [facility] CBC ERYTHROCYTE DISTRIBUTIO N WIDTH [RATIO] BY AUTOMATED COUNT 13.2 11.8 - 15.1 10/10 Specimen Type: BLOOD No comment entered. Ordering Provider: SAUL VELAZQUEZ Report Released Date/Time: Oct 10, 2024 05:30 AM Reporting Lab: [facility] [address] [facility] [address] Performing Lab: [place] [address] [facility] [address] [facility] CBC LYMPHOCYTES /100 LEUKOCYTES IN BLOOD BY AUTOMATED COUNT 35 10/10 Specimen Type: BLOOD No comment entered. Ordering Provider: SAUL VELAZQUEZ Report Released Date/Time: Oct 10, 2024 05:30 AM Reporting Lab: [facility] [address] [facility] [address] Performing Lab: [facility] [address] [facility] CBC MONOCYTES/1 00 LEUKOCYTES IN BLOOD BY AUTOMATED COUNT 8 10/10 Specimen Type: BLOOD No comment entered. Ordering Provider: SAUL VELAZQUEZ Report Released Date/Time: Oct 10, 2024 05:30 AM Reporting Lab: [facility] [address] [facility] [address] Performing Lab: [facility] [address] [facility] [address] [facility] CBC NEUTROPHILS /100 LEUKOCYTES IN BLOOD BY AUTOMATED COUNT 52 10/10 Specimen Type: BLOOD No comment entered. Ordering Provider: SAUL VELAZQUEZ Report Released Date/Time: Oct 10, 2024 05:30 AM Reporting Lab: [facility] [address] [facility] [address] Performing Lab: [facility] [address] [facility] [address] [facility] CBC EOSINOPHILS /100 LEUKOCYTES IN BLOOD BY AUTOMATED COUNT 4 10/10 Specimen Type: BLOOD No comment entered. Ordering Provider: SAUL VELAZQUEZ Report Released Date/Time: Oct 10, 2024 05:30 AM Reporting Lab: [place] [address] [facility] [address] Performing Lab: [place] [address] [facility] [address] [facility] CBC BASOPHILS/1 00 LEUKOCYTES IN BLOOD BY AUTOMATED COUNT 1 10/10 Specimen Type: BLOOD No comment entered. Ordering Provider: SAUL VELAZQUEZ Report Released Date/Time: Oct 10, 2024 05:30 AM Reporting Lab: [place] [address] [facility] [address] Performing Lab: [place] [address] [facility] [address] [facility] CBC LYMPHOCYTES [#/VOLUME] IN BLOOD BY AUTOMATED COUNT 2.77 10*3/uL 0.77 - 4.50 10/10 Specimen Type: BLOOD No comment entered. Ordering Provider: SAUL VELAZQUEZ Report Released Date/Time: Oct 10, 2024 05:30 AM Reporting Lab: [place] [address] [facility] [address] Performing Lab: [place] [address] [facility] [address] [facility] CBC MONOCYTES [#/VOLUME] IN BLOOD BY AUTOMATED COUNT 0.62 10*3/uL 0.19 - 0.80 10/10 Specimen Type: BLOOD No comment entered. Ordering Provider: SAUL VELAZQUEZ Report Released Date/Time: Oct 10, 2024 05:30 AM Reporting Lab: [place] [address] [facility] [address] Performing Lab: [address] [place] [address] [facility] CBC NEUTROPHILS [#/VOLUME] IN BLOOD BY AUTOMATED COUNT 4.13 10*3/uL 2.10 - 8.00 10/10 Specimen Type: BLOOD No comment entered. Ordering Provider: SAUL VELAZQUEZ Report Released Date/Time: Oct 10, 2024 05:30 AM Reporting Lab: [place] [address] Performing Lab: [place] [phone] CBC EOSINOPHILS [#/VOLUME] IN BLOOD BY AUTOMATED COUNT 0.34 10*3/uL 0.00 - 0.60 10/10 Specimen Type: BLOOD No comment entered. Ordering Provider: SAUL VELAZQUEZ Report Released Date/Time: Oct 10, 2024 05:30 AM Reporting Lab: [place] [address] Performing Lab: [place] [phone] CBC BASOPHILS [#/VOLUME] IN BLOOD BY AUTOMATED COUNT 0.09 10*3/uL 0.00 - 0.20 10/10 Specimen Type: BLOOD No comment entered. Ordering Provider: SAUL VELAZQUEZ Report Released Date/Time: Oct 10, 2024 05:30 AM Reporting Lab: [place] [phone] Performing Lab: [place] [phone] COMPREHEN SIVE METABOLIC PANEL CREATININE [MASS/VOLUM E] IN SERUM OR PLASMA 1.24 mg/dL 0.7 - 1.3 10/10 Specimen Type: PLASMA Comment: No hemolysis noted. Ordering Provider: SAUL VELAZQUEZ Report Released Date/Time: Oct 10, 2024 05:30 AM Reporting Lab: [place] [phone] Performing Lab: [facility] [address] [facility] [address] [facility] COMPREHEN SIVE METABOLIC PANEL UREA NITROGEN [MASS/VOLUM E] IN SERUM OR PLASMA 12.0 mg/dL 9.0 - 25.0 10/10 Specimen Type: PLASMA Comment: No hemolysis noted. Ordering Provider: SAUL VELAZQUEZ Report Released Date/Time: Oct 10, 2024 05:30 AM Reporting Lab: [place] [address] [address] [facility] [address] Performing Lab: [place] [address] [facility] [address] [facility] COMPREHEN SIVE METABOLIC PANEL GLUCOSE [MASS/VOLUM E] IN SERUM OR PLASMA 89 mg/dL 72 - 99 10/10 Specimen Type: PLASMA Comment: No hemolysis noted. Ordering Provider: SAUL VELAZQUEZ Report Released Date/Time: Oct 10, 2024 05:30 AM Reporting Lab: [place] [address] [facility] [address] Performing Lab: [place] [address] [facility] [address] [facility] COMPREHEN SIVE METABOLIC PANEL SODIUM [MOLES/VOLU ME] IN SERUM OR PLASMA 143 meq/L 136 - 145 10/10 Specimen Type: PLASMA Comment: No hemolysis noted. Ordering Provider: SAUL VELAZQUEZ Report Released Date/Time: Oct 10, 2024 05:30 AM Reporting Lab: [place] [address] [facility] [address] Performing Lab: [address] [address] [facility] COMPREHEN SIVE METABOLIC PANEL POTASSIUM [MOLES/VOLU ME] IN SERUM OR PLASMA 3.5 meq/L 3.5 - 5 10/10 Specimen Type: PLASMA Comment: No hemolysis noted. Ordering Provider: SAUL VELAZQUEZ Report Released Date/Time: Oct 10, 2024 05:30 AM Reporting Lab: [facility] [address] [facility] [address] Performing Lab: [facility] [address] [facility] [address] [facility] COMPREHEN SIVE METABOLIC PANEL CHLORIDE [MOLES/VOLU ME] IN SERUM OR PLASMA 105 meq/L 98 - 107 10/10 Specimen Type: PLASMA Comment: No hemolysis noted. Ordering Provider: SALU VELAZQUEZ Report Released Date/Time: Oct 10, 2024 05:30 AM Reporting Lab: [place] [address] [address] [facility] [address] Performing Lab: [place] [address] [facility] [address] [facility] COMPREHEN SIVE METABOLIC PANEL CARBON DIOXIDE, TOTAL [MOLES/VOLU ME] IN SERUM OR PLASMA 29 meq/L 22 - 31 10/10 Specimen Type: PLASMA Comment: No hemolysis noted. Ordering Provider: SAUL VELAZQUEZ Report Released Date/Time: Oct 10, 2024 05:30 AM Reporting Lab: [place] [address] [address] [facility] [address] Performing Lab: [place] [address] [address] [facility] [address] [facility] COMPREHEN SIVE METABOLIC PANEL CALCIUM [MASS/VOLUM E] IN SERUM OR PLASMA 9.0 mg/dL 8.4 - 10.4 10/10 Specimen Type: PLASMA Comment: No hemolysis noted. Ordering Provider: SAUL VELAZQUEZ Report Released Date/Time: Oct 10, 2024 05:30 AM Reporting Lab: [place] [address] [facility] [address] Performing Lab: [place] [address] [facility] [address] [facility] COMPREHEN SIVE METABOLIC PANEL PROTEIN [MASS/VOLUM E] IN SERUM OR PLASMA 7.0 g/dL 6 - 8.6 10/10 Specimen Type: PLASMA Comment: No hemolysis noted. Ordering Provider: SAUL VELAZQUEZ Report Released Date/Time: Oct 10, 2024 05:30 AM Reporting Lab: [place] [phone] Performing Lab: [place] [address] [facility] [address] [facility] COMPREHEN SIVE METABOLIC PANEL ALBUMIN [MASS/VOLUM E] IN SERUM OR PLASMA 4.3 g/dL 3.4 - 5 10/10 Specimen Type: PLASMA Comment: No hemolysis noted. Ordering Provider: SAUL VELAZQUEZ Report Released Date/Time: Oct 10, 2024 05:30 AM Reporting Lab: [address] [address] Performing Lab: [place] [address] [facility] [phone] [place] [address] COMPREHEN SIVE METABOLIC PANEL BILIRUBIN.T OTAL [MASS/VOLUM E] IN SERUM OR PLASMA 0.8 mg/dL 0.2 - 1.2 10/10 Specimen Type: PLASMA Comment: No hemolysis noted. Ordering Provider: SAUL VELAZQUEZ Report Released Date/Time: Oct 10, 2024 05:30 AM Reporting Lab: [place] [address] [facility] [address] Performing Lab: [place] [address] [facility] [address] [facility] COMPREHEN SIVE METABOLIC PANEL ALKALINE PHOSPHATASE [ENZYMATIC ACTIVITY/VO LUME] IN SERUM OR PLASMA 73 U/L 40 - 150 10/10 Specimen Type: PLASMA Comment: No hemolysis noted. Ordering Provider: SAUL VELAZQUEZ Report Released Date/Time: Oct 10, 2024 05:30 AM Reporting Lab: [place] [address] [facility] [address] Performing Lab: [place] [address] [facility] [address] [facility] COMPREHEN SIVE METABOLIC PANEL ASPARTATE AMINOTRANSF ERASE [ENZYMATIC ACTIVITY/VO LUME] IN SERUM OR PLASMA 28 U/L 5 - 34 10/10 Specimen Type: PLASMA Comment: No hemolysis noted. Ordering Provider: SAUL VELAZQUEZ Report Released Date/Time: Oct 10, 2024 05:30 AM Reporting Lab: [address] [address] Performing Lab: [address] [phone] [place] [address] COMPREHEN SIVE METABOLIC PANEL ALANINE AMINOTRANSF ERASE [ENZYMATIC ACTIVITY/VO LUME] IN SERUM OR PLASMA 27 U/L 8 - 40 10/10 Specimen Type: PLASMA Comment: No hemolysis noted. Ordering Provider: SAUL VELAZQUEZ Report Released Date/Time: Oct 10, 2024 05:30 AM Reporting Lab: [address] [address] Performing Lab: [address] [phone] [place] [address] COMPREHEN SIVE METABOLIC PANEL GLOMERULAR FILTRATION RATE/1.73 SQ M.PREDICTED [VOLUME RATE/AREA] IN SERUM, PLASMA OR BLOOD BY CREATININE- BASED FORMULA (CKD-EPI 2020) 77.8 60 10/10 Specimen Type: PLASMA Comment: No hemolysis noted. Ordering Provider: SAUL VELAZQUEZ Report Released Date/Time: Oct 10, 2024 05:30 AM Reporting Lab: [address] [address] Performing Lab: [address] [phone] [place] [address] LIPASE LIPASE [ENZYMATIC ACTIVITY/VO LUME] IN SERUM OR PLASMA 32 U/L 8 - 78 10/10 Specimen Type: PLASMA Comment: No hemolysis noted. Ordering Provider: SAUL VELAZQUEZ Report Released Date/Time: Oct 10, 2024 05:30 AM Reporting Lab: [address] [address] Performing Lab: [facility] [place] [address] [address] [facility] GLUCOSE,B LOOD-poct (STL) GLUCOSE [MASS/VOLUM E] IN BLOOD BY AUTOMATED TEST STRIP 84 mg/dL 72 - 99 07/24 Specimen Type: BLOOD Comment: Test Performed by: [id number] Meter #: [id number] Ordering Provider: MELECIO WEBB Report Released Date/Time: Jul 24, 2024 04:27 AM Reporting Lab: [place] [phone] Performing Lab: [place] [phone] URINALYSI S (STL-PB) COLOR OF URINE Light-Y ellow 07/17 Specimen Type: URINE No comment entered. Ordering Provider: PATRICK HOLT Report Released Date/Time: Jul 17, 2024 01:35 PM Reporting Lab: [place] [phone] Performing Lab: [place] [phone] URINALYSI S (STL-PB) BILIRUBIN.T OTAL [PRESENCE] IN URINE BY TEST STRIP Negativ emg/dL 07/17 Specimen Type: URINE No comment entered. Ordering Provider: PATRICK HOLT Report Released Date/Time: Jul 17, 2024 01:35 PM Reporting Lab: [address] [address] Performing Lab: [place] [id number] URINALYSI S (STL-PB) PH OF URINE BY TEST STRIP 8.0 5.0 - 8.0 07/17 Specimen Type: URINE No comment entered. Ordering Provider: PATRICK HOLT Report Released Date/Time: Jul 17, 2024 01:35 PM Reporting Lab: [address] [place] [address] Performing Lab: [address] [address] [facility] URINALYSI S (STL-PB) ERYTHROCYTE S [#/VOLUME] IN URINE SEDIMENT BY MICROSCOPY HIGH POWER FIELD 1 /[HPF] 0 - 5 07/17 Specimen Type: URINE No comment entered. Ordering Provider: PATRICK HOLT Report Released Date/Time: Jul 17, 2024 01:35 PM Reporting Lab: [address] [address] Performing Lab: [address] [address] [facility] URINALYSI S (STL-PB) APPEARANCE OF URINE Clear 07/17 Specimen Type: URINE No comment entered. Ordering Provider: PATRICK HOLT Report Released Date/Time: Jul 17, 2024 01:35 PM Reporting Lab: [address] [address] Performing Lab: [address] [address] [facility] URINALYSI S (STL-PB) NITRITE [PRESENCE] IN URINE BY TEST STRIP Negativ emg/dL 07/17 Specimen Type: URINE No comment entered. Ordering Provider: PATRICK HOLT Report Released Date/Time: Jul 17, 2024 01:35 PM Reporting Lab: [address] [address] Performing Lab: [address] [address] [facility] URINALYSI S (STL-PB) EPITHELIAL CELLS [#/AREA] IN URINE SEDIMENT BY MICROSCOPY LOW POWER FIELD <1/[HPF ] 0 - 5 07/17 Specimen Type: URINE No comment entered. Ordering Provider: PATRICK HOLT Report Released Date/Time: Jul 17, 2024 01:35 PM Reporting Lab: [place] [address] [facility] [address] Performing Lab: [address] [address] [facility] URINALYSI S (STL-PB) MUCUS [PRESENCE] IN URINE SEDIMENT BY LIGHT MICROSCOPY RARE/[L PF] 07/17 Specimen Type: URINE No comment entered. Ordering Provider: PATRICK HOLT Report Released Date/Time: Jul 17, 2024 01:35 PM Reporting Lab: [place] [address] [facility] [address] Performing Lab: [address] [address] [facility] URINALYSI S (STL-PB) GLUCOSE [MASS/VOLUM E] IN URINE BY TEST STRIP Normalm g/dL 07/17 Specimen Type: URINE No comment entered. Ordering Provider: PATRICK HOLT Report Released Date/Time: Jul 17, 2024 01:35 PM Reporting Lab: [address] [address] Performing Lab: [place] [address] [facility] [address] [facility] URINALYSI S (STL-PB) PROTEIN [MASS/VOLUM E] IN URINE BY TEST STRIP 20 mg/dL 07/17 H Specimen Type: URINE No comment entered. Ordering Provider: PATRICK HOLT Report Released Date/Time: Jul 17, 2024 01:35 PM Reporting Lab: [place] [address] [facility] [address] Performing Lab: [address] [address] [facility] URINALYSI S (STL-PB) URN.UROBILI NOGEN Normalm g/dL 07/17 Specimen Type: URINE No comment entered. Ordering Provider: PATRICK HOLT Report Released Date/Time: Jul 17, 2024 01:35 PM Reporting Lab: [place] [address] [facility] [address] Performing Lab: [address] [address] [facility] URINALYSI S (STL-PB) HEMOGLOBIN [MASS/VOLUM E] IN URINE BY TEST STRIP Negativ emg/dL 07/17 Specimen Type: URINE No comment entered. Ordering Provider: PATRICK HOLT Report Released Date/Time: Jul 17, 2024 01:35 PM Reporting Lab: [address] [address] Performing Lab: [address] [address] [facility] URINALYSI S (STL-PB) KETONES [MASS/VOLUM E] IN URINE BY TEST STRIP Negativ emg/dL 07/17 Specimen Type: URINE No comment entered. Ordering Provider: PATRICK HOLT Report Released Date/Time: Jul 17, 2024 01:35 PM Reporting Lab: [address] [address] Performing Lab: [address] [address] [facility] URINALYSI S (STL-PB) URN.LEUK.ES T. Negativ emg/dL 07/17 Specimen Type: URINE No comment entered. Ordering Provider: PATRICK HOLT Report Released Date/Time: Jul 17, 2024 01:35 PM Reporting Lab: [place] [address] [facility] [address] Performing Lab: [address] [address] [facility] URINALYSI S (STL-PB) SPECIFIC GRAVITY OF URINE 1.049 07/17 H Specimen Type: URINE No comment entered. Ordering Provider: PATRICK HOLT Report Released Date/Time: Jul 17, 2024 01:35 PM Reporting Lab: [address] [address] Performing Lab: [address] [address] [facility] CBC LEUKOCYTES [#/VOLUME] IN BLOOD BY AUTOMATED COUNT 6.2 10*3/uL 3.6 - 11.2 07/17 Specimen Type: BLOOD No comment entered. Ordering Provider: PATRICK HOLT Report Released Date/Time: Jul 17, 2024 01:35 PM Reporting Lab: [address] [address] Performing Lab: [address] [address] [facility] CBC ERYTHROCYTE S [#/VOLUME] IN BLOOD BY AUTOMATED COUNT 5.64 10*6/uL 4.10 - 5.70 07/17 Specimen Type: BLOOD No comment entered. Ordering Provider: PATRICK HOLT Report Released Date/Time: Jul 17, 2024 01:35 PM Reporting Lab: [address] [address] Performing Lab: [address] [address] [facility] HEMOGLOBIN [MASS/VOLUM E] IN BLOOD 16.1 g/dL 13.1 - 16.8 07/17 Specimen Type: BLOOD No comment entered. Ordering Provider: PATRICK HOLT Report Released Date/Time: Jul 17, 2024 01:35 PM Reporting Lab: [address] [address] Performing Lab: [address] [address] [facility] HEMATOCRIT [VOLUME FRACTION] OF BLOOD 46.8 38.2 - 48.4 07/17 Specimen Type: BLOOD No comment entered. Ordering Provider: PATRICK HOLT Report Released Date/Time: Jul 17, 2024 01:35 PM Reporting Lab: [address] [address] Performing Lab: [address] [address] [facility] MCV [ENTITIC VOLUME] BY AUTOMATED COUNT 83.0 fL 80.0 - 100.0 07/17 Specimen Type: BLOOD No comment entered. Ordering Provider: PATRIKC HOLT Report Released Date/Time: Jul 17, 2024 01:35 PM Reporting Lab: [address] [address] Performing Lab: [address] [id number] [address] [facility] MCH [ENTITIC MASS] BY AUTOMATED COUNT 28.5 pg 27.0 - 34.0 07/17 Specimen Type: BLOOD No comment entered. Ordering Provider: PATRICK HOLT Report Released Date/Time: Jul 17, 2024 01:35 PM Reporting Lab: [address] [address] Performing Lab: [address] [address] [facility] MCHC [MASS/VOLUM E] BY AUTOMATED COUNT 34.4 g/dL 33.0 - 36.0 07/17 Specimen Type: BLOOD No comment entered. Ordering Provider: PATRICK HOLT Report Released Date/Time: Jul 17, 2024 01:35 PM Reporting Lab: [address] [address] Performing Lab: [address] [address] [facility] PLATELETS [#/VOLUME] IN BLOOD BY AUTOMATED COUNT 201 10*3/uL 150 - 400 07/17 Specimen Type: BLOOD No comment entered. Ordering Provider: PATRICK HOLT Report Released Date/Time: Jul 17, 2024 01:35 PM Reporting Lab: [place] [address] [facility] [address] Performing Lab: [facility] [address] [place] [phone] [facility] PLATELET MEAN VOLUME [ENTITIC VOLUME] IN BLOOD BY AUTOMATED COUNT 9.4 fL 7.5 - 11.2 07/17 Specimen Type: BLOOD No comment entered. Ordering Provider: PATRICK HOLT Report Released Date/Time: Jul 17, 2024 01:35 PM Reporting Lab: [place] [address] [facility] [address] Performing Lab: [place] [address] [facility] [address] [facility] ERYTHROCYTE DISTRIBUTIO N WIDTH [RATIO] BY AUTOMATED COUNT 13.0 11.8 - 15.1 07/17 Specimen Type: BLOOD No comment entered. Ordering Provider: PATRICK HOLT Report Released Date/Time: Jul 17, 2024 01:35 PM Reporting Lab: [place] [address] [facility] [address] Performing Lab: [place] [address] [facility] [address] [facility] CBC LYMPHOCYTES /100 LEUKOCYTES IN BLOOD BY AUTOMATED COUNT 29 07/17 Specimen Type: BLOOD No comment entered. Ordering Provider: PATRICK HOLT Report Released Date/Time: Jul 17, 2024 01:35 PM Reporting Lab: [place] [address] [facility] [address] Performing Lab: [place] [address] [facility] [address] [facility] CBC MONOCYTES/1 00 LEUKOCYTES IN BLOOD BY AUTOMATED COUNT 7 07/17 Specimen Type: BLOOD No comment entered. Ordering Provider: PATRICK HOLT Report Released Date/Time: Jul 17, 2024 01:35 PM Reporting Lab: [facility] [address] [facility] [address] Performing Lab: [facility] [address] [facility] [address] [facility] CBC NEUTROPHILS /100 LEUKOCYTES IN BLOOD BY AUTOMATED COUNT 59 07/17 Specimen Type: BLOOD No comment entered. Ordering Provider: PATRICK HOLT Report Released Date/Time: Jul 17, 2024 01:35 PM Reporting Lab: [facility] [address] [place] [address] Performing Lab: [facility] [address] [facility] [address] [facility] CBC EOSINOPHILS /100 LEUKOCYTES IN BLOOD BY AUTOMATED COUNT 4 07/17 Specimen Type: BLOOD No comment entered. Ordering Provider: PATRICK HOLT Report Released Date/Time: Jul 17, 2024 01:35 PM Reporting Lab: [address] [address] Performing Lab: [address] [address] [facility] CBC BASOPHILS/1 00 LEUKOCYTES IN BLOOD BY AUTOMATED COUNT 1 07/17 Specimen Type: BLOOD No comment entered. Ordering Provider: PATRICK HOLT Report Released Date/Time: Jul 17, 2024 01:35 PM Reporting Lab: [address] [address] Performing Lab: [address] [address] [facility] CBC LYMPHOCYTES [#/VOLUME] IN BLOOD BY AUTOMATED COUNT 1.82 10*3/uL 0.77 - 4.50 07/17 Specimen Type: BLOOD No comment entered. Ordering Provider: PATRICK HOLT Report Released Date/Time: Jul 17, 2024 01:35 PM Reporting Lab: [address] [address] Performing Lab: [address] [address] [facility] CBC MONOCYTES [#/VOLUME] IN BLOOD BY AUTOMATED COUNT 0.46 10*3/uL 0.19 - 0.80 07/17 Specimen Type: BLOOD No comment entered. Ordering Provider: PATRICK HOLT Report Released Date/Time: Jul 17, 2024 01:35 PM Reporting Lab: [place] [address] Performing Lab: [place] [id number] CBC NEUTROPHILS [#/VOLUME] IN BLOOD BY AUTOMATED COUNT 3.67 10*3/uL 2.10 - 8.00 07/17 Specimen Type: BLOOD No comment entered. Ordering Provider: PATRICK HOLT Report Released Date/Time: Jul 17, 2024 01:35 PM Reporting Lab: [place] [address] Performing Lab: [address] CBC EOSINOPHILS [#/VOLUME] IN BLOOD BY AUTOMATED COUNT 0.22 10*3/uL 0.00 - 0.60 07/17 Specimen Type: BLOOD No comment entered. Ordering Provider: PATRICK HOLT Report Released Date/Time: Jul 17, 2024 01:35 PM Reporting Lab: [place] [address] Performing Lab: [place] [id number] CBC BASOPHILS [#/VOLUME] IN BLOOD BY AUTOMATED COUNT 0.05 10*3/uL 0.00 - 0.20 07/17 Specimen Type: BLOOD No comment entered. Ordering Provider: PATRICK HOLT Report Released Date/Time: Jul 17, 2024 01:35 PM Reporting Lab: [place] [address] Performing Lab: [address] [place] [address] [facility] COMPREHEN SIVE METABOLIC PANEL CREATININE [MASS/VOLUM E] IN SERUM OR PLASMA 1.39 mg/dL 0.7 - 1.3 07/17 H Specimen Type: PLASMA Comment: No hemolysis noted. Ordering Provider: PATRICK HOLT Report Released Date/Time: Jul 17, 2024 01:35 PM Reporting Lab: [address] [address] Performing Lab: [place] [address] [facility] [address] [facility] COMPREHEN SIVE METABOLIC PANEL UREA NITROGEN [MASS/VOLUM E] IN SERUM OR PLASMA 12.6 mg/dL 9.0 - 25.0 07/17 Specimen Type: PLASMA Comment: No hemolysis noted. Ordering Provider: PATRICK HOLT Report Released Date/Time: Jul 17, 2024 01:35 PM Reporting Lab: [address] [address] Performing Lab: [address] [address] [facility] COMPREHEN SIVE METABOLIC PANEL GLUCOSE [MASS/VOLUM E] IN SERUM OR PLASMA 84 mg/dL 72 - 99 07/17 Specimen Type: PLASMA Comment: No hemolysis noted. Ordering Provider: PATRICK HOLT Report Released Date/Time: Jul 17, 2024 01:35 PM Reporting Lab: [address] [address] Performing Lab: [address] [address] [facility] COMPREHEN SIVE METABOLIC PANEL SODIUM [MOLES/VOLU ME] IN SERUM OR PLASMA 142 meq/L 136 - 145 07/17 Specimen Type: PLASMA Comment: No hemolysis noted. Ordering Provider: PATRICK HOLT Report Released Date/Time: Jul 17, 2024 01:35 PM Reporting Lab: [address] [place] [address] Performing Lab: [facility] [address] [facility] [address] [facility] COMPREHEN SIVE METABOLIC PANEL POTASSIUM [MOLES/VOLU ME] IN SERUM OR PLASMA 3.8 meq/L 3.5 - 5 07/17 Specimen Type: PLASMA Comment: No hemolysis noted. Ordering Provider: PATRICK HOLT Report Released Date/Time: Jul 17, 2024 01:35 PM Reporting Lab: [place] [address] [facility] [address] Performing Lab: [address] [address] [facility] COMPREHEN SIVE METABOLIC PANEL CHLORIDE [MOLES/VOLU ME] IN SERUM OR PLASMA 107 meq/L 98 - 107 07/17 Specimen Type: PLASMA Comment: No hemolysis noted. Ordering Provider: PATRICK HOLT Report Released Date/Time: Jul 17, 2024 01:35 PM Reporting Lab: [place] [address] [facility] [address] Performing Lab: [place] [address] [facility] [address] [facility] COMPREHEN SIVE METABOLIC PANEL CARBON DIOXIDE, TOTAL [MOLES/VOLU ME] IN SERUM OR PLASMA 26 meq/L 22 - 31 07/17 Specimen Type: PLASMA Comment: No hemolysis noted. Ordering Provider: PATRICK HOLT Report Released Date/Time: Jul 17, 2024 01:35 PM Reporting Lab: [place] [address] [facility] [address] Performing Lab: [address] [address] [facility] COMPREHEN SIVE METABOLIC PANEL CALCIUM [MASS/VOLUM E] IN SERUM OR PLASMA 9.6 mg/dL 8.4 - 10.4 07/17 Specimen Type: PLASMA Comment: No hemolysis noted. Ordering Provider: PATRICK HOLT Report Released Date/Time: Jul 17, 2024 01:35 PM Reporting Lab: [place] [address] [facility] [address] Performing Lab: [place] [address] [facility] [address] [facility] COMPREHEN SIVE METABOLIC PANEL PROTEIN [MASS/VOLUM E] IN SERUM OR PLASMA 7.0 g/dL 6 - 8.6 07/17 Specimen Type: PLASMA Comment: No hemolysis noted. Ordering Provider: PATRICK HOLT Report Released Date/Time: Jul 17, 2024 01:35 PM Reporting Lab: [place] [phone] Performing Lab: [place] [address] [facility] [phone] [place] [address] COMPREHEN SIVE METABOLIC PANEL ALBUMIN [MASS/VOLUM E] IN SERUM OR PLASMA 4.4 g/dL 3.4 - 5 07/17 Specimen Type: PLASMA Comment: No hemolysis noted. Ordering Provider: PATRICK HOLT Report Released Date/Time: Jul 17, 2024 01:35 PM Reporting Lab: [address] [address] Performing Lab: [address] [address] [facility] COMPREHEN SIVE METABOLIC PANEL BILIRUBIN.T OTAL [MASS/VOLUM E] IN SERUM OR PLASMA 0.7 mg/dL 0.2 - 1.2 07/17 Specimen Type: PLASMA Comment: No hemolysis noted. Ordering Provider: PATRICK HOLT Report Released Date/Time: Jul 17, 2024 01:35 PM Reporting Lab: [address] [address] Performing Lab: [address] [address] [facility] COMPREHEN SIVE METABOLIC PANEL ALKALINE PHOSPHATASE [ENZYMATIC ACTIVITY/VO LUME] IN SERUM OR PLASMA 78 U/L 40 - 150 07/17 Specimen Type: PLASMA Comment: No hemolysis noted. Ordering Provider: PATRICK HOLT Report Released Date/Time: Jul 17, 2024 01:35 PM Reporting Lab: [facility] [address] [facility] [address] Performing Lab: [facility] [address] [facility] [address] [facility] COMPREHEN SIVE METABOLIC PANEL ASPARTATE AMINOTRANSF ERASE [ENZYMATIC ACTIVITY/VO LUME] IN SERUM OR PLASMA 13 U/L 5 - 34 07/17 Specimen Type: PLASMA Comment: No hemolysis noted. Ordering Provider: PATRICK HOLT Report Released Date/Time: Jul 17, 2024 01:35 PM Reporting Lab: [facility] [address] [place] [address] Performing Lab: [place] [address] [facility] [address] [facility] COMPREH SIVE METABOLIC PANEL ALANINE AMINOTRANSF ERASE [ENZYMATIC ACTIVITY/VO LUME] IN SERUM OR PLASMA 15 U/L 8 - 40 07/17 Specimen Type: PLASMA Comment: No hemolysis noted. Ordering Provider: PATRICK HOLT Report Released Date/Time: Jul 17, 2024 01:35 PM Reporting Lab: [facility] [address] [facility] [address] Performing Lab: [facility] [address] [facility] [address] [facility] COMPREHEN SIVE METABOLIC PANEL GLOMERULAR FILTRATION RATE/1.73 SQ M.PREDICTED [VOLUME RATE/AREA] IN SERUM, PLASMA OR BLOOD BY CREATININE- BASED FORMULA (CKD-EPI 2020) 67.8 60 07/17 Specimen Type: PLASMA Comment: No hemolysis noted. Ordering Provider: PATRICK HOLT Report Released Date/Time: Jul 17, 2024 01:35 PM Reporting Lab: [facility] [address] [place] [address] Performing Lab: [facility] [address] [address] [facility] LIPASE LIPASE [ENZYMATIC ACTIVITY/VO LUME] IN SERUM OR PLASMA 27 U/L 8 - 78 07/17 Specimen Type: PLASMA Comment: No hemolysis noted. Ordering Provider: PATRICK HOLT Report Released Date/Time: Jul 17, 2024 01:35 PM Reporting Lab: [place] [address] Performing Lab: [place] [phone] [facility] BASIC METABOLIC PANEL CREATININE [MASS/VOLUM E] IN SERUM OR PLASMA 1.22 mg/dL 0.7 - 1.3 04/17 Specimen Type: PLASMA Comment: No hemolysis noted. Ordering Provider: RAJNI DOAN V Report Released Date/Time: Apr 16, 2024 04:01 PM Reporting Lab: [place] [phone] Performing Lab: [address] [address] [facility] BASIC METABOLIC PANEL UREA NITROGEN [MASS/VOLUM E] IN SERUM OR PLASMA 12.4 mg/dL 9.0 - 25.0 04/17 Specimen Type: PLASMA Comment: No hemolysis noted. Ordering Provider: RAJNI DOAN V Report Released Date/Time: Apr 16, 2024 04:01 PM Reporting Lab: [address] [address] Performing Lab: [address] [address] [facility] BASIC METABOLIC PANEL GLUCOSE [MASS/VOLUM E] IN SERUM OR PLASMA 131 mg/dL 72 - 99 04/17 H Specimen Type: PLASMA Comment: No hemolysis noted. Ordering Provider: RAJNI DOAN V Report Released Date/Time: Apr 16, 2024 04:01 PM Reporting Lab: [address] [address] Performing Lab: [facility] [address] [facility] [address] [facility] BASIC METABOLIC PANEL SODIUM [MOLES/VOLU ME] IN SERUM OR PLASMA 139 meq/L 136 - 145 04/17 Specimen Type: PLASMA Comment: No hemolysis noted. Ordering Provider: RAJNI DOAN V Report Released Date/Time: Apr 16, 2024 04:01 PM Reporting Lab: [facility] [address] [place] [address] Performing Lab: [facility] [address] [place] [address] [facility] BASIC METABOLIC PANEL POTASSIUM [MOLES/VOLU ME] IN SERUM OR PLASMA 4.6 meq/L 3.5 - 5 04/17 Specimen Type: PLASMA Comment: No hemolysis noted. Ordering Provider: RAJNI DOAN V Report Released Date/Time: Apr 16, 2024 04:01 PM Reporting Lab: [address] [address] Performing Lab: [facility] [address] [place] [address] [facility] BASIC METABOLIC PANEL CHLORIDE [MOLES/VOLU ME] IN SERUM OR PLASMA 105 meq/L 98 - 107 04/17 Specimen Type: PLASMA Comment: No hemolysis noted. Ordering Provider: RAJNI DOAN V Report Released Date/Time: Apr 16, 2024 04:01 PM Reporting Lab: [facility] [address] [facility] [address] Performing Lab: [address] [address] [facility] BASIC METABOLIC PANEL CARBON DIOXIDE, TOTAL [MOLES/VOLU ME] IN SERUM OR PLASMA 23 meq/L 22 - 31 04/17 Specimen Type: PLASMA Comment: No hemolysis noted. Ordering Provider: RAJNI DOAN V Report Released Date/Time: Apr 16, 2024 04:01 PM Reporting Lab: [facility] [address] [facility] [address] Performing Lab: [place] [address] [facility] [address] [facility] BASIC METABOLIC PANEL CALCIUM [MASS/VOLUM E] IN SERUM OR PLASMA 9.2 mg/dL 8.4 - 10.4 04/17 Specimen Type: PLASMA Comment: No hemolysis noted. Ordering Provider: RAJNI DOAN V Report Released Date/Time: Apr 16, 2024 04:01 PM Reporting Lab: [place] [address] [facility] [address] Performing Lab: [address] [phone] [place] [address] BASIC METABOLIC PANEL GLOMERULAR FILTRATION RATE/1.73 SQ M.PREDICTED [VOLUME RATE/AREA] IN SERUM, PLASMA OR BLOOD BY CREATININE- BASED FORMULA (CKD-EPI 2020) 79.3 60 04/17 Specimen Type: PLASMA Comment: No hemolysis noted. Ordering Provider: RAJNI DOAN V Report Released Date/Time: Apr 16, 2024 04:01 PM Reporting Lab: [address] [address] Performing Lab: [address] [address] [facility] Vital Signs Combined list of inpatient and outpatient Vital Signs from Department of Defense and Veterans Affairs, ranging from 12 months to all on record, depending upon the facility. Vital Sign Value Date Comments Source SYSTOLIC BLOOD PRESSURE 130 12/24/2024 08:33:29 [facility] DIASTOLIC BLOOD PRESSURE 85 12/24/2024 08:33:29 [facility] PULSE OXIMETRY 97 12/24/2024 08:33:29 [facility] DIVISION PAIN 3 12/24/2024 08:33:29 [facility] TEMPERATURE 97.5 12/24/2024 08:33:29 [facility] PULSE 80 12/24/2024 08:33:29 [facility] RESPIRATION 20 12/24/2024 08:33:29 [facility] SYSTOLIC BLOOD PRESSURE 132 10/10/2024 05:20:00 [facility] DIASTOLIC BLOOD PRESSURE 91 10/10/2024 05:20:00 [facility] PAIN 5 10/10/2024 05:20:00 [facility] TEMPERATURE 98.2 10/10/2024 05:20:00 [facility] PULSE 78 10/10/2024 05:20:00 [facility] RESPIRATION 18 10/10/2024 05:20:00 [facility] SYSTOLIC BLOOD PRESSURE 115 08/07/2024 15:10:24 [facility] DIASTOLIC BLOOD PRESSURE 73 08/07/2024 15:10:24 [facility] PULSE OXIMETRY 98 08/07/2024 15:10:24 [facility] WEIGHT 242.4 08/07/2024 15:10:24 [facility] BMI 31 kg/m2 08/07/2024 15:10:24 [facility] PAIN 0 08/07/2024 15:10:24 [facility] TEMPERATURE 98.5 08/07/2024 15:10:24 [facility] PULSE 95 08/07/2024 15:10:24 [facility] RESPIRATION 16 08/07/2024 15:10:24 [facility] SYSTOLIC BLOOD PRESSURE 136 07/24/2024 04:13:00 [facility] DIASTOLIC BLOOD PRESSURE 83 07/24/2024 04:13:00 [facility] PAIN 0 07/24/2024 04:13:00 [facility] TEMPERATURE 97.6 07/24/2024 04:13:00 [facility] PULSE 71 07/24/2024 04:13:00 [facility] RESPIRATION 18 07/24/2024 04:13:00 [facility] SYSTOLIC BLOOD PRESSURE 147 07/17/2024 13:29:00 [facility] DIASTOLIC BLOOD PRESSURE 82 07/17/2024 13:29:00 [facility] PAIN 6 07/17/2024 13:29:00 [facility] TEMPERATURE 97.9 07/17/2024 13:29:00 [facility] PULSE 89 07/17/2024 13:29:00 [facility] RESPIRATION 16 07/17/2024 13:29:00 [facility] Encounters Combined list of: 1) Encounters from Department of [facility] facilities going backup to the last 18 months, not all [place] inpatient encounters are included; 2) Encounters from the Department of [facility] facilities going backup to 280 months. Location Location Details Encounter Type Encounter Number Reason For Visit Attending Provider ADM Date DC Date Status Disposition Source [address] [place] [address] [facility]Ped iatrics) OUTPATIENT [id number] PHILIPP/SPO RTS PHY 9th Grade AHLTA SYSTEM ADMINISTRA TOR 04/[address] [place] [address] [facility]P ediatri cs) [address] [place] [address] [facility]Sco tt [facility] Tm Blue) OUTPATIENT [id number] ear infecti on TABBY POP 03/14 Released w/o Limitations [address] [place] [address] [facility]S cott [facility] Tm Blue) [address] [place] [address] [facility] RAM[facility]Sco tt [facility] F[facility] Res Tm Green) OUTPATIENT [id number] cough JOSE CHEATHAM R E 08/13 Released w/o Limitations [address] [place] [address] [facility] RAM[facility] ([facility] [place]S cott [facility] Res Tm Green) [address] [place] [address] [facility]Sco tt [facility] Fam Res Tm Green) OUTPATIENT [id number] rt eye redness with cold [phone] l# RONALDO DUMONT 01/27 Released w/o Limitations [address] [place] [address] [facility] ([facility] [place]S cott [facility] Fam Res Tm Green) [address] [place] [address])(Opt ometry) OUTPATIENT [id number] lt eye swollen shut this am/eyel id kori TSANG ROSIBEL W 05/28 Released w/o Limitations [address] [place] [address])(O ptometr y) [facility](Op tometry [facility] 1523) OUTPATIENT [id number] Notes Entered by: CHINO LAWS 29 Apr 2012 0750 ------- ------- ------- ------- -- recruit screen P-3 Div 312 HANK DUBOIS 04/29 Released w/o Limitations [facility]( Optomet ry [facility] 1523) [facility](Au diology [facility] 1523) OUTPATIENT [id number] RAYNA JOSEPH 04/29 Released w/o Limitations [facility]( Audiolo gy [facility] 1523) [facility] OUTPATIENT [id number] ESME SILVA 05/02 Released w/o Limitations [facility]( [facility] [address] [place] [address])(Sco tt [facility] Fam Res Tm Green) OUTPATIENT [id number] rt wrist pain/st iff and tender x 5 days [id number] IVELISSE BRUNNER 10/31 Released w/o Limitations [address] [place] [address] [facility] ([facility] [place]S cott [facility] Fam Res Tm Green) [facility](SD Gastro Liver Cln) OUTPATIENT [id number] RUQ PAIN NATASHA ARNETT 08/28 Released w/o Limitations [facility](S D Gastro Liver Cln) [facility](SD Gastroent erology Cln) TELE CONSULT [id number] Notes Entered by: LEANNA ARNETT 25 Sep 2013 0904 ------- ------- ------- ------- -- Lab result NATASHA ARNETT 09/25 [facility](S D Gastroe nterolo gy Cln) [facility](Jose al Station Optometry ) OUTPATIENT [id number] JULEE LAMBERT 10/03 Released w/o Limitations [facility](N aval Station Optomet ry) [facility](MSC [place]) OUTPATIENT [id number] referra l for vesecto my NATASHA KIMBALL 06/08 Released w/o Limitations [facility](MSC [place]) [facility](Urology NMCP) OUTPATIENT [id number] Encount er for contrac eptive managem ent, unspeci fied INES JERRY 06/29 Released w/o Limitations [facility](Uro logy NMCP) [facility](Emergen cy Medicine NMCP) OUTPATIENT [id number] DONNA SAPP 07/29 Released w/o Limitations [facility](Chela rgency Medicin e NMCP) [facility](Urology NMCP) OUTPATIENT [id number] 3 vas; resched from Sep EVANS WILEY 10/04 Released w/o Limitations [facility](Uro logy NMCP) [facility](COVID19 Scrn & Test NMCP) OUTPATIENT [id number] CTAACC BOOKED NATASHA SALAS 11/24 Released w/o Limitations [facility](COV ID19 Scrn & Test NMCP) [facility](Optomet ry [place]) OUTPATIENT [id number] EYE EXAM FIGUEROA DANIEL NMN 12/07 Released w/o Limitations [facility](Opt ometry [place]) [facility](Optomet ry [place]) OUTPATIENT [id number] Visual Field FIGUEROA, DANIEL NMN 12/14 Released w/o Limitations [facility](Opt ometry [place]) [facility](COVID19 Scrn & Test NMCP) OUTPATIENT [id number] CTAACC BOOKED CINDA DELACRUZ 12/23 Released w/o Limitations [facility](COV ID19 Scrn & Test NMCP) [facility] NN) TELE CONSULT [id number] Notes Entered by: Sandrine ALMONTE 15 Feb 2021 1149 ------- ------- ------- ------- -- lab f/u PASCUAL ALMONTE 02/15 [facility] [place]) [facility](Hearing Cons [place]) OUTPATIENT [id number] Notes Entered by: Justin WALLER 17 Mar 2021 1035 ------- ------- ------- ------- -- SURGEMA IN SEBASTIEN WALLER 03/17 Released w/o Limitations [facility](Hea ring Cons [place]) [facility](MSC [place]) OUTPATIENT [id number] MIKE BARRIOS 04/07 Released w/o Limitations [facility](MSC [place]) [facility] ([facility] [place]War rior Op Med Cln Tm A Ad) TELE CONSULT [id number] Notes Entered by: SUKH DELVALLE RET 29 Aug 2021 1111 ------- ------- ------- ------- -- Appt Resched sleep issues/ Alec /* CLAUDIA Manzo 08/29 Referred for Appointment [facility] ([facility] [place]W arrior Op Med Cln Tm A Ad) [facility] ([facility] [place]War rior Op Med Cln Tm A Ad) OUTPATIENT [id number] F2F Discuss Sleep Concern s GABINO REIS 09/13 Released w/o Limitations [address] [place] [address] Group [facility] ([facility] [place]W arrior Op Med Cln Tm A Ad) N. [facility] Outpatient Encounter [id number] 07/24 N. [facility] N. [facility] Outpatient Encounter [id number] DEEPTHI BURDEN 08/08 N. [facility] N. [facility] Outpatient Encounter [id number] DEEPTHI BURDEN 08/08 N. [facility] N. [facility] EMERGENCY DEPT VISIT LOW MDM [id number] Diagnos is: ICD-10- CM R11.2 Nausea with vomitin g, unspeci fied CLAUDIO HERNÁNDEZ AND R 08/08 N. [facility] OFFICE O/P NEW MOD 45-59 MIN [id number] Diagnos is: ICD-10- CM F41.9 Anxiety disorde r, unspeci fied KATIANA-CAB NATE NEWBERRY SSE 08/28 [facility] PSYTX W PT 45 MINUTES [id number] Diagnos is: ICD-10- CM F41.9 Anxiety disorde r, unspeci fied RADHA AWAD S 08/28 [facility] THERAPEUTI C EXERCISES [id number] Diagnos is: ICD-10- CM M54.50 Low back pain, unspeci fied DOSHI,ARSENIO ISTINE N 09/02 [facility] N. [facility] Outpatient Encounter [id number] 09/25 N. [facility] N. [facility] Outpatient Encounter [id number] 09/25 N. [facility] ECHO EXAM OF EYE THICKNESS [id number] [id number] Diagnos is: ICD-10- CM H52.13 Myopia, bilater al FR VKI DAVIS L 09/26 [facility] PSYTX W PT 45 MINUTES 53609-3.57 [id number] Diagnos is: ICD-10- CM F41.1 General ized anxiety disorde r RADHA AWAD S 09/26 [facility] N. [facility] Outpatient Encounter [id number] [id number] 1 RADHA AWAD S 09/26 N. [facility] N. [facility] Outpatient Encounter 49043-5.57 [id number] 7 KATIANA-CAB AILINANATE SSE 10/28 [facility] Outpatient Encounter 72213-7.65 [id number] 3 11/07 [facility] N. [facility] Outpatient Encounter 70736-0.57 [id number] 9 11/[address] [facility] N. [facility] EMERGENCY DEPT VISIT MOD MDM 68605-8.57 [id number] Diagnos is: ICD-10- CM K80.70 Calculu s of GB and bile duct w/o cholecy st w/o obstruc tion GOFF,APRI L 11/10 N[facility] N. [facility] Outpatient Encounter 49226-4.57 [id number] 4 GOFF,APRI L 11/10 [facility] THERAPEUTI C EXERCISES 68780-2.57 [id number] Diagnos is: ICD-10- CM M54.50 Low back pain, unspeci fied DOSHI,CHR ISTINE N 11/12 [facility] OFFICE O/P EST MOD 30 MIN 05193-1.65 [id number] 5 Diagnos is: ICD-10- CM Z11.59 Encount er for screeni ng for other viral disease s DIAZ RADER 11/12 [facility] Outpatient Encounter 09457-8.57 [id number] 0 NATE QUINONES SSE 11/15 [facility] Outpatient Encounter 78006-8.57 [id number] RADHA AWAD S 11/15 [facility] Outpatient Encounter 55830-7.57 [id number] 11/19 [facility] En[facility] 42877-4.57 [id number] 2 PAM HANNA 11/21 [facility] Outpatient Encounter 63741-2.57 [id number] 0 12/03 [facility] EMERGENCY DEPT VISIT LOW MDM 30668-2.57 [id number] 3 Diagnos is: ICD-10- CM M54.2 Cervica lgia ,LE S E 12/03 [facility] Outpatient Encounter 67706-4.57 [id number] 3 DOSHI,ARSENIO ISTINE N 12/08 [facility] PSYTX W PT 30 MINUTES 79624-1.57 [id number] Diagnos is: ICD-10- CM F41.1 General ized anxiety disorde r RADHA AWAD S 12/09 [facility] Outpatient Encounter 47023-4.57 [id number] 1 RADHA AWAD S 12/09 [facility] Outpatient Encounter 96438-7.65 [id number] 2 MICAH HEWITT 12/17 [facility] OFF[facility] O/P NEW SF 15 MIN 17775-1.65 [id number] Diagnos is: ICD-10- CM Z02.89 Encount er for other adminis trative examina tions MARY VILCHIS N 12/29 [facility] Outpatient Encounter 10217-6.65 [id number] 1 MICAH HEWITT RRY 01/07 [facility] EMERGENCY DEPT VISIT MOD MDM 32003-7.65 [id number] 4 Diagnos is: ICD-10- CM R10.9 Unspeci fied abdomin al pain ISABELLETOIM NE 01/17 [facility] Outpatient Encounter 95428-5.65 [id number] TOMI WALTON NE 01/17 [facility] DIVISION OFFICE O/P EST MOD 30 MIN 04965-3.65 [id number] Diagnos is: ICD-10- CM F33.1 Major depress kayli disorde r, recurre nt, moderat e DEMETRIUS MOSLEY 01/22 [facility] OFF/OP CNSLTJ NEW/EST MOD 40 48707-8.65 [id number] 5 Diagnos is: ICD-10- CM K80.81 Other choleli thiasis with obstruc tion ANGELA EDWARDS TTHEW H 02/02 [facility] Outpatient Encounter 72268-6.65 [id number] 6 02/02 [facility] Outpatient Encounter 99376-6.65 [id number] 3 02/02 [facility] Outpatient Encounter 17620-4.65 [id number] 3 02/03 [facility] Outpatient Encounter 54893-3.65 [id number] 3 MAGEDADIDENISJustin LOUIS 02/03 [facility] EGD DIAGNOSTIC BRUSH WASH 59663-0.65 [id number] 7 Diagnos is: ICD-10- CM K21.00 Gastro- esophag eal reflux dis with esophag itis, without bleed NISSANGELA HOUSE TTHEW H 02/03 [facility] OFFICE O/P EST SF 10 MIN 88563-1.65 [id number] 3 Diagnos is: ICD-10- CM Z01.818 Encount er for other preproc edural examina GABRIELA Mcgrath 02/03 [facility] N. [facility] Outpatient Encounter 21535-2.57 [id number] 6 02/03 [facility] PSYTX W PT 30 MINUTES 36118-1.65 [id number] 446 Diagnos is: ICD-10- CM F33.1 Major depress kayli disorde r, recurre nt, moderat e Juan PHILIPPE 02/03 [facility] HC PRO PHONE CALL 11-20 MIN 77905-7.65 [id number] Diagnos is: ICD-10- CM Z13.31 Encount er for screeni ng for depress ion GERHARD MOREJON 02/04 [facility] OFFICE O/P NEW MOD 45 MIN 57123-3.65 [id number] 3 Diagnos is: ICD-10- CM K80.80 Other choleli thiasis without obstruc tion UDAY,DELILAH OR C 02/06 [facility] Outpatient Encounter 48892-3.65 [id number] 3 Diagnos is: ICD-10- CM F33.1 Major depress kayli disorde r, recurre nt, moderat e OSVALDO,SAMANTHA EVANS D 02/06 [facility] OFFICE O/P NEW SF 15 MIN 48995-0.65 [id number] Diagnos is: ICD-10- CM Z02.89 Encount er for other adminis trative examina tions MARY VILCHIS 02/13 [facility] Outpatient Encounter 60203-2.65 [id number] MICAH HEWITT RRMeme 02/19 [facility] Outpatient Encounter 89021-0.65 [id number] 02/19 [facility] Outpatient Encounter 54634-7.65 [id number] 6 02/23 [facility] OFFICE O/P EST LOW 20 MIN 79878-5.65 [id number] 5 Diagnos is: ICD-10- CM Z02.9 Encount er for adminis trative examina tions, unspeci ROYA Longoria 02/23 [facility] HC PRO PHONE CALL 11-20 MIN 24789-1.65 [id number] Diagnos is: ICD-10- CM Z13.31 Encount er for screeni ng for depress ion GERHARD MOREJON 02/24 [facility] OFF/OP CNSLTJ NEW/EST MOD 40 24911-7.65 [id number] 7 Diagnos is: ICD-10- CM I20.9 Angina pectori s, unspeci fied GLORIA WELCH A 02/26 [facility] Outpatient Encounter 10243-7.65 [id number] 8 02/26 [facility] PSYTX W PT 45 MINUTES 85404-7.65 [id number] Diagnos is: ICD-10- CM F33.1 Major depress kayli disorde r, recurre nt, moderat e CALOSMADYSON R 02/26 [facility] Outpatient Encounter 39396-6.65 [id number] 4 Diagnos is: ICD-10- CM R07.9 Chest pain, unspeci fied BETITO,PRINCESS SHARI R 02/27 [facility] Outpatient Encounter 18375-4.65 [id number] 6 Diagnos is: ICD-10- CM R07.9 Chest pain, unspeci fied LEIGHAHEA THER 02/27 [facility] EMERGENCY DEPT VISIT [facility] 29240-4.65 [id number] 4 Diagnos is: ICD-10- CM Z23 Encount er for immuniz ation SERGEI SCHULZ 02/27 [facility] Outpatient Encounter 92463-2.65 [id number] 3 SERGEI SCHULZ 02/27 [facility] PSYTX W PT 45 MINUTES 16531-4.65 [id number] Diagnos is: ICD-10- CM F33.1 Major depress kayli disorde r, recurre nt, moderat e MADYSON LIVE 03/03 [facility] Outpatient Encounter 94914-2.65 [id number] 1 MADYSON LIVE R 03/03 [facility] Outpatient Encounter 19703-3.65 [id number] 1 MADYSON LIVE 03/03 [facility] OFFICE O/P EST MOD 30 MIN 70247-1.65 [id number] 4 Diagnos is: ICD-10- CM Z02.89 Encount er for other adminis trative examina tions ROYA CARTAGENA 03/04 [facility] Outpatient Encounter 07836-0.65 [id number] 03/05 [facility] Outpatient Encounter 06606-7.65 [id number] 1 MADYSON LIVE 03/13 [facility] HC PRO PHONE CALL 5-10 MIN 58726-0.65 [id number] 5 Diagnos is: ICD-10- CM K80.20 Calculu s of mary dder w/o cholecy stitis w/o obstruc tion PEOPLES,NI JEL C 03/16 [facility] Outpatient Encounter 08158-7.65 [id number] 03/17 [facility] Outpatient Encounter 60255-8.65 [id number] 3 MADYSON LIVE 03/20 [facility] PSYTX W PT 45 MINUTES 01259-6.65 [id number] Diagnos is: ICD-10- CM F33.1 Major depress kayli disorde r, recurre nt, moderat e BORNMADYSON R 03/25 [facility] Outpatient Encounter 22390-6.65 [id number] 0 Diagnos is: ICD-10- CM M54.50 Low back pain, unspeci GERHARD ChanIFER 03/25 [facility] EMERGENCY DEPT VISIT [facility] 41324-2.65 [id number] 0 Diagnos is: ICD-10- CM S32.000 A Wedge ovidio antonietta fractur e of unsp lumbar vertebr a, init JESSICA PATTEN 03/25 [facility] Outpatient Encounter 70648-4.65 [id number] 3 JESSICA PATTEN 03/25 [facility] Outpatient Encounter 53725-9.65 [id number] 5 JESSICA PATTEN 03/25 [facility] Outpatient Encounter 37659-0.65 [id number] 8 Karen HOLLOWAY 03/27 [facility] Outpatient Encounter 01152-5.65 [id number] 6 Diagnos is: ICD-10- CM M54.51 Vertebr ogenic low back pain DAVID CULLEN 03/30 [facility] Outpatient Encounter 32115-7.65 [id number] 3 Karen HOLLOWAY 03/31 [facility] MTMS BY PHARM ADDL 15 MIN 81087-0.65 [id number] 103 Diagnos is: ICD-10- CM Z79.899 Other custodial (curren t) drug therapy DANIEL GIBBS 04/02 [facility] PSYCH DIAGNOSTIC EVALUATION 27383-5.65 [id number] 192 Diagnos is: ICD-10- CM F33.1 Major depress kayli disorde r, recurre nt, moderat e MADYSON LIVE R 04/08 [facility] Outpatient Encounter 95030-8.65 [id number] 8 BORNMADYSON R 04/08 [facility] Outpatient Encounter 33234-2.65 [id number] 1 MADYSON LIVE R 04/08 [facility] EMERGENCY DEPT VISIT MOD MDM 22989-5.65 [id number] 3 Diagnos is: ICD-10- CM R10.10 Upper abdomin al pain, unspeci fied LEEANNE GRAY ED K 04/16 [facility] Outpatient Encounter 48547-6.65 [id number] 4 04/16 [facility] ON CALL PHARMACY TECHNICIAN DIRECTOR [facility] INDIV[facility] 29876-5.65 [id number] 9 Diagnos is: ICD-10- CM Z71.81 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 SOWMYA Antunez 04/16 [facility] Outpatient Encounter 46150-6.65 [id number] 5 04/16 [facility] Inpatient Encounter 23176-7.65 [id number] 4 04/16 [facility] Robotic Assisted Procedure of Trunk, Perc Endo Approach 49430-8.65 [id number] 5 Admit Reason: INTRACT ABLE BILARY COLIC JASWINDER ASH 04/16 Discharge from inpatient treatment to the [facility] ([facility]) [facility] 1ST HOSP IP/OBS MODERATE 55 40431-4.65 [id number] CASPER ARNETT E III 04/16 [facility] Inpatient Encounter 02838-9.65 [id number] 1 JAH HUDDLESTON A 04/16 [facility] Inpatient Encounter 75021-8.65 [id number] 7 JAH HUDDLESTON A 04/16 [facility] Inpatient Encounter 28327-3.65 [id number] 1 JAH HUDDLESTON A 04/16 [facility] Inpatient Encounter 74629-3.65 [id number] 9 O'SAUL-LAC SAM DURAN 04/16 [facility] Inpatient Encounter 67481-7.65 [id number] 2 JO ANN HINDS 04/17 [facility] Inpatient Encounter 21214-1.65 [id number] 4 O'SAUL-LAC RENEESAM 04/17 [facility] Inpatient Encounter 18205-4.65 [id number] 4 O'SAUL-LAC EY,SAM 04/17 [facility] Inpatient Encounter 36654-7.65 [id number] 4 O'SAUL-LAC EY,SAM 04/17 [facility] SBSQ HOSP IP/OBS MODERATE 35 70604-8.65 [id number] 7 CASPER ARNETT III 04/17 [facility] Inpatient Encounter 11512-1.65 [id number] 3 CHRISTIANO RODRIGUEZ 04/17 [facility] OFFICE O/P EST LOW 20 MIN 31678-7.65 [id number] 6 Diagnos is: ICD-10- CM Z01.818 Encount er for other preproc edural examina tiMELIZA Martel 04/17 [facility] Inpatient Encounter 89707-6.65 [id number] 0 MELIZA BLANCO 04/17 [facility] Inpatient Encounter 46444-4.65 [id number] 3 CAROLYN ANTONY 04/17 [facility] Inpatient Encounter 99013-9.65 [id number] 7 JASWINDER ASH 04/17 [facility] Inpatient Encounter 27483-1.65 [id number] 8 JUAN,Karen PAULINO 04/17 [facility] Inpatient Encounter 86969-7.65 [id number] 2 JUANKaren PAULINO 04/17 [facility] Inpatient Encounter 40642-7.65 [id number] 2 HALIMANIKOLAIPHILIPP 04/17 [facility] Inpatient Encounter 19211-6.65 [id number] 3 BEN MONTEMAYOR 04/17 [facility] Inpatient Encounter 21302-1.65 [id number] 3 CHRISTIANO RODRIGUEZ 04/17 [facility] Inpatient Encounter 96591-2.65 [id number] 3 O'SAUL-LAC EY,SAM 04/17 [facility] Inpatient Encounter 82416-3.65 [id number] 8 O'SAUL-LAC EY,SAM 04/18 [facility] Encounter 86673-4.65 [id number] 1 O'SAUL-LAC EY,SAM 04/18 [facility] Inpatient Encounter 97727-7.65 [id number] 3 DELILAH FRYE 04/18 [facility] Outpatient Encounter 86639-7.65 [id number] 5 MORALES,AM NA 04/21 [facility] Outpatient Encounter 73585-7.65 [id number] 6 MADYSON LIVE 04/22 [facility] OFF/OP EST MAY X REQ PHY/QHP 50196-0.65 [id number] Diagnos is: ICD-10- CM K81.0 Acute cholecy stitis WILLI,AM Y E 04/22 [facility] Outpatient Encounter 16997-2.65 [id number] 7 04/23 [facility] OFF/OP CNSLTJ NEW/EST MOD 40 52862-3.65 [id number] 2 Diagnos is: ICD-10- CM S32.030 A Wedge ovidio antonietta fractur e of third lumbar vertebr a, init CARAGINE,L OUIS P 04/27 [facility] Outpatient Encounter 14103-3.29 [id number] 2 04/28 [facility] Outpatient Encounter 42522-2.65 [id number] 9 05/01 [facility] Outpatient Encounter 32361-8.65 [id number] 5 05/07 [facility] OFFICE O/P EST LOW 20 MIN 17007-5.65 [id number] 5 Diagnos is: ICD-10- CM K81.2 Acute cholecy stitis with chronic cholecy stitis ARUN DIAZ 05/15 [facility] Outpatient Encounter 21059-9.65 [id number] 3 AJIT TIAN SA S 05/18 [facility] PSYTX W PT 45 MINUTES 31696-8.65 [id number] Diagnos is: ICD-10- CM F33.1 Major depress kayli disorde r, recurre nt, moderat e CALOSMADYSON R 05/28 [facility] Outpatient Encounter 95551-2.65 [id number] 5 Diagnos is: ICD-10- CM Z02.9 Encount er for adminis trative examina tions, unspeci IZZY Hodge G 05/28 [facility] OFFICE O/P EST MOD 30 MIN 86694-4.65 [id number] 1 Diagnos is: ICD-10- CM M51.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, lumbar region EDU,THOMAS HN 06/03 [facility] PSYTX W PT 45 MINUTES 55960-7.65 [id number] 112 Diagnos is: ICD-10- CM F41.9 Anxiety disorde r, unspeci fijose LIVEMADYSON R 06/11 [facility] Outpatient Encounter 47317-9.65 [id number] 2 06/17 [facility] OFFICE O/P NEW LOW 30 MIN 79180-2.65 [id number] 2 Diagnos is: ICD-10- CM E55.9 Vitamin D deficie ncy, unspeci fied RAMÓN ZAMORANO HEATHER T 06/29 [facility] SPECIAL REPORTS OR FORMS 25922-665 [id number] 7 Diagnos is: ICD-10- CM Z02.89 Encount er for other adminis trative examina tions CADY GÓMEZ SSA E 07/09 [facility] Outpatient Encounter 68754-8.65 [id number] 7 SHANIAKATHIEPATRICK DOUGHERTY 07/17 [facility] MEASURE BLOOD OXYGEN LEVEL 68896-5.65 [id number] 5 Diagnos is: ICD-10- CM Z71.1 Person w feared hlth complai nt in whom no diagnos is is made SHANIAPATRICK VÁZQUEZ 07/17 [facility] Outpatient Encounter 53771-6.65 [id number] 4 07/17 [facility] Outpatient Encounter 49244-6.65 [id number] 6 SHANIAKATHIEPATRICK DOUGHERTY 07/17 [facility] Outpatient Encounter 97360-2.65 [id number] 1 GEMMELL,AM Y E 07/19 [facility] OFF/OP EST JANUARY X REQ PHY/QHP 75090-6.65 [id number] Diagnos is: ICD-10- CM K59.00 Constip ation, unspeci fied GEMMELL,AM Y E 07/22 [facility] EMERGENCY DEPT VISIT LOW MDM 85218-8.65 [id number] 6 Diagnos is: ICD-10- CM R42 Dizzine ss and giddine ss MELECIO WEBB 07/24 [facility] FRANDY MCKEON [facility] Outpatient Encounter 71435-4.56 [id number] 07/25 [facility] Outpatient Encounter 50945-1.56 [id number] 07/28 [facility] Outpatient Encounter 70985-5.56 [id number] GUILHERME LUND 07/28 [facility] Outpatient Encounter 79304-6.65 [id number] 3 GEMMELL,AM Y E 07/29 [facility] Outpatient Encounter 71897-7.65 [id number] 0 GEMMELL,AM Y E 07/29 [facility] Outpatient Encounter 17248-3.65 [id number] 0 07/30 [facility] Outpatient Encounter 75188-4.65 [id number] 5 08/05 [facility] OFFICE O/P EST MOD 30 MIN 49985-1.65 [id number] Diagnos is: ICD-10- CM Z09 Encntr for f/u exam aft trtmt for cond oth than malig AJIT Whitt SA S 08/07 [facility] Outpatient Encounter 72578-2.65 [id number] 1 08/10 [facility] Outpatient Encounter 45828-2.65 [id number] 5 08/10 [facility] Outpatient Encounter 42418-2.65 [id number] 9 MIKE OROURKE 08/12 [facility] Outpatient Encounter 81089-2.65 [id number] 9 08/13 [facility] Outpatient Encounter 39857-7.65 [id number] 5 Sandrine STEWARD MD 10/10 [facility] EMERGENCY DEPT VISIT LOW MDM 55124-1.65 [id number] 2 Diagnos is: ICD-10- CM R10.10 Upper abdomin al pain, unspeci fied Sandrine STEWARD MD 10/10 [facility] Outpatient Encounter 91554-9.65 [id number] 4 Sandrine STEWARD MD 10/10 [facility] Outpatient Encounter 80572-4.65 [id number] 4 10/22 [facility] Outpatient Encounter 47500-8.65 [id number] 2 11/14 [facility] 0055C-375 th [facility] Not Rendered [id number] Encount er for pre-emp loyment examina tion VADIM KO 11/24 Discharge Disposition: ADMIN 0055C-3 75th [facility] OFFICE O/P NEW MOD 45 MIN 76951-3.65 [id number] Diagnos is: ICD-10- CM S32.020 S Wedge ovidio antonietta fractur e of second lum vertebr a, sequela ALPA OSBORNE 12/24 [facility] Outpatient Encounter 27956-9.65 [id number] 9 INDIO HONG 12/29 [facility] Outpatient Encounter 21572-4.65 [id number] 2 MICAH HEWITT RRY 12/30 [facility] COMPREHENS VE ORAL EVALUATION 38454-9.65 [id number] 2 Diagnos is: ICD-10- CM Z01.20 Encount er for dental exam and cleanin g w/o abnorma l finding s ADAIR HERNANDEZ 01/08 [facility] Outpatient Encounter 97175-7.65 [id number] 01/08 [facility] Procedures Combined list of: 1) Procedures from Department of Veterans Affairs facilities going back up to thelast 18 months, not all [place] non-surgical procedures are included; 2) All procedures from the Department of Defense facilities. Procedure Procedure Type Code Date Perfomer Comments Sourc e No data is provided for this section because a [facility] internal system error occurred when retrieving data. A future request for this document may succe fully include data for this section if the system i ue has been resolved. [facility] LAPAROSCOPIC ROBOTIC ASSISTED CHOLECYSTECTOMY LAPAROSCOPIC CHOLECYSTECTOMY [id number] 04/17/20 24 Juan ASH [facility] No data available for this section Ambulato ry Pharmacy Social History Combined list of available smoking, tobacco, and other social history from Department of Defense and Veterans Affairs facilities. Social History Type Response Date Comment Sourc e Tobacco smoking status NHIS [facility] FORMER USER 01/08/2024 [facility] History of tobacco use VA-TOBACCO QUIT 1 5 YRS OR MORE 01/08/2024 [facility] History of tobacco use VA-TOBACCO FORMER USER 12/18/2023 [facility] History of tobacco use [facility]-TO[facility] NEVER USED 05/14/2023 [facility] History of tobacco use VA-TOBACCO QUIT 1 TO < 5 YRS 04/18/2022 [facility] Sex Representation Male (finding) 12/10/2021 Un known Organization This section is an empty social history section. DoD Sexual Orientation Ambula tory Pharmacy Gender identity Ambulator y Pharmacy Assessment and Plan Combined list of future care activities from Department of Defense and Veterans [facility] facilities (e.g., assessment and plan notes, appointments, orders, and referrals). Additional future care activities may be listed in the Plan of Care section. Result Assessment and Plan Date Source Assessment and Plan No data available for this section 01/15/2025 Ambulatory Pharmacy Plan of Care List of future care activities from Department [facility] facilities. Additional future care activities may be listed in the Assessment and Plan section. Date/Time Care Activity Care Activity Detail Facili ty 01/19/2025 AMBULATORY - REHAB MEDICINE AMBULATORY - REHAB MEDICINE [facility] Advance Directives List of completed, amended, or rescinded Advance Directives on record at [facility] facilities. An actual copy of the Directive is not included. Date Advance Directive Provider Source 08/28/2023 ADVANCE DIRECTIVE NO TIFICATION AND SCREENING SYLWIA SANTIAGO [facility] 05/14/2023 ADVANCE DIRECTIVE NO TIFICATION AND SCREENING SYLWIA SANTIAGO [facility] Functional Status Combined list of recent functional and cognitive assessments recorded at [facility] [place] Functional [place] Measurement (FIM) Scale: 1 = Total Assistance (Subject = 0% +), 2 = Maximal Assistance (Subject = 25% +), 3 = Moderate Assistance (Subject = 50% +), 4 = Minimal Assistance (Subject = 75% +), 5 = Supervision, 6 = Modified [place] (Device), 7 = Complete [place] (Timely, Safely). Assessment Date/Time Source Assessment Type Assessment Skill Assessment Score Assessment Details No data available for this section
--- OUTSIDE RECORDS SUMMARY | 2025-01-15 08:14 | XMS_ITS | Clinical Summary ---
Author Organization [employer] [facility] [id number] [facility] Address [address] [place] [address] Care Team Providers Care Student Ambassador Name Role Phone Unavailable Primary Care Provider [...]
[2025-01-15 08:17] VITALS: BP 118/68; PULSE 72; RESP 16; TEMP 36.6; O2SAT 100
== END 2025-01-15 08:19 | disposition home or self-care (01) ==
PROVIDERS: Emergency Provider Emergency Medicine
DX: K64.4 Residual hemorrhoidal skin tags (principal); K21.9 Gastro-esophageal reflux disease without esophagitis; Z90.49 Acquired absence of other specified parts of digestive tract
CPT/HCPCS: 99283